=== PATIENT | male | born 1925 | race Asian ===

== ENCOUNTER 2017-01-27 22:33 | Emergency (ER) | payer MEDICARE, OTHER ==
[~2017-01-27] VITALS: Ht 157.5 cm; Wt 54.4 kg
[~2017-01-27 22:33] MED LIST: ASPI-664 PO; ATOR20TA38 PO; CALC0.2511 PO; CALC500T12 PO; CARV12.579 PO; DONE5TAB7 PO; FAMO20TA18 PO; FER325 PO; FOLI-49 PO; LAMO25TA55 PO; SITA25TA3 PO; TAMS-14 PO
[2017-01-27 22:36] VITALS: Ht 157.5 cm; Wt 54.4 kg
--- NOTE | 2017-01-27 22:49 | ERA ---
ER Documentation Chief Complaint Date/Time DATE: 01/27/17 TIME: 22:47 Chief Complaint Low hemoglobin 6.4 HPI The patient is a 61-year-old male, presenting to the ER because of low hemoglobin 6.4, low hematocrit 19.2 from the blood test drawn on January 23. The dialysis center called him today and asked him to go to the ER due to abnormal lab. He is unable to provide a history, the history is obtained from the son. He has not received any blood transfusion. He denies any syncope, near syncope , weakness, neck pain, chest pain, abdominal pain, hematemesis, hematochezia. Past medical history: Dementia, BPH, dyslipidemia, diabetes mellitus, history of CVA, CAD, chronic kidney disease on dialysis Sunday and Sunday, dysphagia, bilateral bone disease, history of thrombocytopenia Past medical history: Pacemaker, right chest dialysis catheter ROS All systems reviewed and are negative except as per history of present illness. Medications Home Meds Reported Medications Ferrous Sulfate* (Ferrous Sulfate*) 325 Mg Tabec, 325 MG PO DAILY, TAB 07/06/16 Famotidine* (Famotidine*) 20 Mg Tablet, 20 MG PO BID, #60 TAB 07/06/16 Calcitriol* (Calcitriol*) 0.25 Mcg Capsule, 0.25 MCG PO DAILY, CAP 07/06/16 Lamotrigine* (Lamotrigine* ER) 25 Mg Tab.er.24, 25 MG PO DAILY, TAB 07/06/16 Donepezil* (Donepezil*) 5 Mg Tablet, 5 MG PO DAILY, #30 TAB 07/06/16 Tamsulosin Hcl* (Flomax*) 0.4 Mg Cap.er.24h, 0.4 MG PO HS, CAP 07/06/16 Carvedilol* (Carvedilol*) 12.5 Mg Tablet, 12.5 MG PO BID, #60 TAB 07/06/16 Atorvastatin Calcium* (Atorvastatin Calcium*) 20 Mg Tablet, 20 MG PO HS, TAB 12/14/14 Folic Acid* (Folic Acid*) 1 Mg Tablet, 1 MG PO DAILY, TAB 12/14/14 Sitagliptin* (Januvia*) 25 Mg Tablet, 25 MG PO DAILY, TAB 12/14/14 Aspirin (Low Dose Aspirin) 81 Mg Tablet.dr, 81 MG PO DAILY 12/14/14 Calcium Carbonate* (Oysco-500*) 1 Tab Tablet, 1 TAB PO BID, TAB 12/14/14 Allergies Allergies: Coded Allergies: No Known Allergy (Unverified , 01/27/17) PMhx/Soc History of Surgery: No Anesthesia Reaction: No Hx Neurological Disorder: Yes (CVA) Hx Respiratory Disorders: No Hx Cardiac Disorders: Yes (HTN/PACEMAKER) Hx Psychiatric Problems: Yes (DEMENTIA) Hx Miscellaneous Medical Probl: Yes (hypothermia, CKD, hypokalemia, CVA with residual,) Hx Alcohol Use: No Hx Substance Use: No Physical Exam Vitals Vital Signs Date Time Temp Pulse Resp B/P Pulse Ox O2 Delivery O2 Flow Rate FiO2 01/27/17 22:36 97.1 87 20 131/79 94 Physical Exam Const: No acute distress. Pale Head: Atraumatic. Eyes: Normal Conjunctiva. ENT: Normal External Ears, Nose and Mouth. Neck: Full range of motion. No meningismus. Resp: Clear to auscultation bilaterally. Cardio: Regular rate and rhythm. Abd: Soft, non distended, normal bowel sounds, non tender. Skin: No petechiae or rashes. Back: No midline or flank tenderness. Ext: No cyanosis, or edema. Neur: Awake and alert. No focal deficit Psych: Unable to perform due to his condition Result Diagram: 01/27/17 2300 01/27/17 2300 Results 24 hrs Laboratory Tests Test 01/27/17 23:00 White Blood Count 7.810^3/ul Red Blood Count 2.7710^6/ul Hemoglobin 8.7g/dl Hematocrit 30.0% Mean Corpuscular Volume 108.3fl Mean Corpuscular Hemoglobin 31.4pg Mean Corpuscular Hemoglobin Concent 29.0g/dl Red Cell Distribution Width 15.4% Platelet Count 84240^3/UL Mean Platelet Volume 10.2fl Neutrophils % 68.6% Lymphocytes % 10.3% Monocytes % 8.5% Eosinophils % 11.2% Basophils % 0.8% Nucleated Red Blood Cells % 0.0/100WBC Neutrophils # 5.410^3/ul Lymphocytes # 0.810^3/ul Monocytes # 0.710^3/ul Eosinophils # 0.910^3/ul Basophils # 0.110^3/ul Nucleated Red Blood Cells # 0.010^3/ul Prothrombin Time 12.7Sec Prothrombin Time Ratio 1.0 INR International Normalized Ratio 0.95 Activated Partial Thromboplast Time 93.7Sec Sodium Level 140mmol/L Potassium Level 3.1mmol/L Chloride Level 102mmol/L Carbon Dioxide Level 33mmol/L Anion Gap 8 Blood Urea Nitrogen 36mg/dl Creatinine 4.28mg/dl Glucose Level 131mg/dl Calcium Level 8.6mg/dl Total Bilirubin 0.0mg/dl Direct Bilirubin 0.00mg/dl Indirect Bilirubin 0.0mg/dl Aspartate Amino Transf (AST/SGOT) 28IU/L Alanine Aminotransferase (ALT/SGPT) 25IU/L Alkaline Phosphatase 138IU/L Total Protein 6.2g/dl Albumin 2.8g/dl Globulin 3.40g/dl Albumin/Globulin Ratio 0.82 Current Medications Medications (Trade) Dose Ordered Sig/Prateek Route PRN Reason Start Time Stop Time Status Last Admin Dose Admin Potassium Chloride (Klor-Con 10) 10 meq ONCE ONCE PO 01/28/17 02:00 01/28/17 02:01 DC Procedures/MDM MEDICAL MAKING DECISION: The patient is a 89-year-old male, presenting with anemia, acute hypokalemia. His hemoglobin is 8.7 and does not have any evidence of acute GI bleed, is stable for outpatient follow-up. He was treated with potassium chloride 10 mEq p.o. for acute hypokalemia The differential diagnoses considered include but are not limited to gastritis, peptic ulcer disease, esophageal varices, Merline-Rose tear, carcinoma, polyp, hemorrhoid, fissure, diverticulosis, angiodysplasia. EKG: Read by emergency physician Rate/Rhythm: Normal Sinus Rhythm 83 beats/min QRS, ST, T-waves: No ST elevation, no T inversion, right bundle branch block , inferior lateral T abnormality Impression: Abnormal EKG Departure Diagnosis: Primary Impression: Anemia Additional Impression: Hypokalemia Condition: Good Comments I discussed the findings with the patient. I advised the patient to follow-up with the primary physician in about 1-2 days for reevaluation and referral to gastroenterology, sooner if needed and return if any concern. LADARIUS BISHOP MD Jan 27, 2017 22:49
[2017-01-27 23:53] LABS: BASOPHIL # 0.1 10^3/ul (0.0-0.1); BASOPHILS % 0.8 % (0.0-2.0); EOSINOPHILS # 0.9 10^3/ul (0.0-0.5); EOSINOPHILS % 11.2 % (0.0-7.0); HEMOGLOBIN 8.7 g/dl (14.0-18.0); LYMPHOCYTES # 0.8 10^3/ul (0.8-2.9); LYMPHOCYTES % 10.3 % (15.0-51.0); MEAN CORPUSCULAR HEMOGLOBIN 31.4 pg (29.0-33.0); MEAN CORPUSCULAR VOLUME 108.3 fl (82.0-101.0); MEAN PLATELET VOLUME 10.2 fl (7.4-10.4); MONOCYTE # 0.7 10^3/ul (0.3-0.9); MONOCYTES % 8.5 % (0.0-11.0); NEUTROPHIL # 5.4 10^3/ul (1.6-7.5); NEUTROPHILS % 68.6 % (39.0-77.0); PLATELET COUNT 258 10^3/UL (140-415); RED BLOOD COUNT 2.77 10^6/ul (4.70-6.10); RED CELL DISTRIBUTION WIDTH 15.4 % (11.5-14.5); WHITE BLOOD COUNT 7.8 10^3/ul (4.8-10.8)
[2017-01-28 00:13] LABS: ALBUMIN 2.8 g/dl (3.3-4.9); ALBUMIN/GLOBULIN RATIO 0.82; CALCIUM 8.6 mg/dl (8.4-10.2); CREATININE 4.28 mg/dl (0.61-1.24); POTASSIUM 3.1 mmol/L (3.5-5.1); TOTAL PROTEIN 6.2 g/dl (6.1-8.1)
[2017-01-28 00:27] LABS: INR 0.95; PROTIME 12.7 Sec (12.2-14.2)
[2017-01-28 01:33] LABS: PARTIAL THROMBOPLASTIN TIME 93.7 Sec (25.0-35.0)
[2017-01-28] MEDS ORDERED: POTASSIUM CHLORIDE (SR) 10 MEQ TAB PO ONE (02:00)
[2017-01-28 02:22] VITALS: BP 122/53; PULSE 75; RESP 22; TEMP 98.9
== END 2017-01-28 02:34 | disposition home or self-care (01) ==
LOC: E/R 22:33
DX: D64.9 Anemia, unspecified (principal); E87.6 Hypokalemia; I12.9 Hypertensive chronic kidney disease with stage 1 through stage 4 chronic kidney disease, or unspecified chronic kidney disease; N18.9 Chronic kidney disease, unspecified; Z79.82 Long term (current) use of aspirin; Z79.84 Long term (current) use of oral hypoglycemic drugs; Z95.0 Presence of cardiac pacemaker
CPT/HCPCS: 36415; 80053; 85025; 85610; 85730; 86850; 86900; 86901; 93005

== ENCOUNTER 2017-04-25 15:42 | Inpatient (IN) | payer MEDICARE, OTHER ==
[~2017-04-25] VITALS: Ht 157.5 cm; Wt 54.8 kg
[2017-04-25] VITALS (7 sets, daily range): BP systolic 129–155; BP diastolic 73–80; PULSE 100–108; RESP 14–20; TEMP 98.5; Ht 157.5 cm; Wt 54.8 kg
[2017-04-25] MEDS ORDERED: SOD CHLORIDE 0.9% 500 ML IV STA (15:55)
[2017-04-25] MEDS ORDERED: SOD CHLORIDE 0.9% 250 ML IV ONE (16:12)
[2017-04-25 16:38] LABS: ABNORMAL IP MESSAGE 1; BASOPHIL # 0.1 10^3/ul (0.0-0.1); BASOPHILS % 0.9 % (0.0-2.0); EOSINOPHILS % 12.8 % (0.0-7.0); HEMATOCRIT 26.4 % (42.0-52.0); HEMOGLOBIN 7.3 g/dl (14.0-18.0); LYMPHOCYTES # 1.6 10^3/ul (0.8-2.9); LYMPHOCYTES % 19.1 % (15.0-51.0); MEAN CORPUSCULAR HEMOGLOBIN 26.6 pg (29.0-33.0); MEAN CORPUSCULAR HGB CONC 27.7 g/dl (32.0-37.0); MEAN CORPUSCULAR VOLUME 96.4 fl (82.0-101.0); MEAN PLATELET VOLUME 9.6 fl (7.4-10.4); MONOCYTE # 0.9 10^3/ul (0.3-0.9); MONOCYTES % 10.9 % (0.0-11.0); NEUTROPHIL # 4.5 10^3/ul (1.6-7.5); NEUTROPHILS % 55.9 % (39.0-77.0); PLATELET COUNT 252 10^3/UL (140-415); POSITIVE DIFF @See below; RED BLOOD COUNT 2.74 10^6/ul (4.70-6.10); RED CELL DISTRIBUTION WIDTH 17.7 % (11.5-14.5); WHITE BLOOD COUNT 8.1 10^3/ul (4.8-10.8)
--- NOTE | 2017-04-25 16:38 | RADRPT ---
PROCEDURE: XR Chest. CLINICAL INDICATION: Sepsis . TECHNIQUE: Single frontal chest x-ray. COMPARISON: 07/19/2016 FINDINGS: There is a right sided tunneled dialysis catheter and left-sided dual chamber cardiac pacer in place . . Cardiomegaly with calcific atherosclerosis of the aorta is present. Left basilar atelectasis or consolidation is stable. The right lung is clear.. No evidence of pneumothorax.. The osseous struct ures are intact. IMPRESSION: Tubes and lines unchanged. Cardiomegaly with left basilar atelectasis or consolidation unchanged.. RPTAT: GG .Francisco Joseph MD, Date Time Electronically viewed and signed by .Francisco Joseph MD, on 04/25/2017 16:38 .L/
[2017-04-25 16:53] LABS: INR 0.97; PROTIME 12.9 Sec (12.2-14.2)
[2017-04-25 16:54] LABS: PARTIAL THROMBOPLASTIN TIME 30.5 Sec (25.0-35.0)
[2017-04-25 17:00] LABS: ALBUMIN/GLOBULIN RATIO 0.51; CALCIUM 7.8 mg/dl (8.4-10.2); CREATININE 5.38 mg/dl (0.61-1.24); POTASSIUM 4.6 mmol/L (3.5-5.1); TOTAL PROTEIN 5.9 g/dl (6.1-8.1)
[2017-04-25] MEDS ORDERED: ACETAMINOPHEN 325 MG TAB PO PRN ×2 (17:00→18:00)
[2017-04-25] MEDS ORDERED: ONDANSETRON 4 MG INJ IV PRN ×2 (17:00→18:00)
[2017-04-25] MEDS ORDERED: MEGE40TA PO (17:06)
[2017-04-25] MEDS ORDERED: LORA10TA3 PO (17:06)
[2017-04-25] MEDS ORDERED: FURO20TA3 PO (17:08)
[2017-04-25 17:31] LABS: TROPONIN-I 0.059 ng/ml (0.00-0.12)
[2017-04-25] MEDS ORDERED: SOD CHLORIDE 0.45% 1,000 ML IV SCH (17:55)
[2017-04-25] MEDS ORDERED: HYDROCODONE/APAP (5/325) TAB PO PRN (18:00)
[2017-04-25] MEDS ORDERED: LORAZEPAM 2 MG INJ IV PRN (18:00)
[2017-04-25] MEDS ORDERED: ALBUTEROL/IPRATROPIUM (NEB) 3 ML AMP HHN PRN (18:00)
[2017-04-25] MEDS ORDERED: NITROGLYCERIN (SL) 0.4 MG TAB SL PRN (18:00)
[2017-04-25] MEDS ORDERED: NA PHOSPHATE/BIPHOS 133 ML ENEMA PR PRN (18:00)
[2017-04-25] MEDS ORDERED: morphine 2 MG INJ IV PRN (18:00)
[2017-04-25] MEDS ORDERED: DOCUSATE SODIUM 100 MG CAP PO PRN (18:00)
[2017-04-25] MEDS ORDERED: hydrALAzine 20 MG INJ IV PRN (18:00)
[2017-04-25] MEDS ORDERED: NACL 0.9% 3 ML SYG IV SCH (18:00)
[2017-04-25] MEDS ORDERED: MAGNESIUM HYDROXIDE 30ML CUP PO PRN (18:00)
--- NOTE | 2017-04-25 18:00 | ERA ---
ER Documentation Chief Complaint Date/Time DATE: 04/25/17 TIME: 17:58 Chief Complaint low hemoglobin 6.1, sent from dialysis center HPI Patient is an 89-year-old male with diabetes and dialysis who presents with a low hemoglobin. He had outpatient laboratory studies which showed a hemoglobin of 6.1. He has felt weakness all over. The patient had no fever but did have a low blood pressure. The patient did not pass out. The patient has had no recent injury. The patient had a full dialysis yesterday. He has never had a blood transfusion in the past. He denies black or bloody stools. Upon review of old medical records this is the patient's fourth visit to the ER since 2014. ROS All systems reviewed and are negative except as per history of present illness. Medications Home Meds Reported Medications Furosemide* (Furosemide*) 20 Mg Tablet, 20 MG PO DAILY, #60 TAB TAKE 4 TIMES A WEEK 04/25/17 Loratadine* (Loratadine*) 10 Mg Tablet, 10 MG PO DAILY, #30 TAB 04/25/17 Megestrol Acetate* (Megace*) 40 Mg Tab, 40 MG PO DAILY, TAB 04/25/17 Famotidine* (Famotidine*) 20 Mg Tablet, 20 MG PO BID, #60 TAB 07/06/16 Donepezil* (Donepezil*) 5 Mg Tablet, 5 MG PO DAILY, #30 TAB 07/06/16 Tamsulosin Hcl* (Flomax*) 0.4 Mg Cap.er.24h, 0.4 MG PO HS, CAP 07/06/16 Atorvastatin Calcium* (Atorvastatin Calcium*) 20 Mg Tablet, 20 MG PO HS, TAB 12/14/14 Folic Acid* (Folic Acid*) 1 Mg Tablet, 1 MG PO DAILY, TAB 12/14/14 Sitagliptin* (Januvia*) 25 Mg Tablet, 25 MG PO DAILY, TAB 12/14/14 Aspirin (Low Dose Aspirin) 81 Mg Tablet.dr, 81 MG PO DAILY 12/14/14 Calcium Carbonate* (Oysco-500*) 1 Tab Tablet, 1 TAB PO BID, TAB 12/14/14 Discontinued Reported Medications Ferrous Sulfate* (Ferrous Sulfate*) 325 Mg Tabec, 325 MG PO DAILY, TAB 07/06/16 Calcitriol* (Calcitriol*) 0.25 Mcg Capsule, 0.25 MCG PO DAILY, CAP 07/06/16 Lamotrigine* (Lamotrigine* ER) 25 Mg Tab.er.24, 25 MG PO DAILY, TAB 07/06/16 Carvedilol* (Carvedilol*) 12.5 Mg Tablet, 12.5 MG PO BID, #60 TAB 07/06/16 Allergies Allergies: Coded Allergies: No Known Allergy (Unverified , 04/25/17) PMhx/Soc History of Surgery: Yes (RT CHEST DIALYSIS CATH, PACEMAKER) Anesthesia Reaction: No Hx Neurological Disorder: Yes (CVA) Hx Respiratory Disorders: No Hx Cardiac Disorders: Yes (HTN/PACEMAKER) Hx Psychiatric Problems: Yes (DEMENTIA) Hx Miscellaneous Medical Probl: Yes (hypothermia, CKD ON HD, hypokalemia, CVA with residual,) Hx Alcohol Use: No Hx Substance Use: No Hx Tobacco Use: Yes (FORMER SMOKER) Smoking Status: Former smoker FmHx Family History: No diabetes Physical Exam Vitals Vital Signs Date Time Temp Pulse Resp B/P Pulse Ox O2 Delivery O2 Flow Rate FiO2 04/25/17 17:22 77 17 111/54 99 Room Air 04/25/17 15:45 98.5 116 22 81/49 99 Physical Exam Const: Chronically ill Head: Atraumatic Eyes: Normal Conjunctiva ENT: Normal External Ears, Nose and Mouth. Neck: Full range of motion..~ No meningismus. Resp: Clear to auscultation bilaterally Cardio: Regular rate and rhythm, no murmurs Abd: Soft, non tender, non distended. Normal bowel sounds Skin: Pale skin Back: No midline or flank tenderness Ext: No cyanosis, or edema Neur: Awake but pill-rolling tremor Result Diagram: 04/25/17 1610 04/25/17 1610 Results 24 hrs Laboratory Tests Test 04/25/17 16:10 White Blood Count 8.110^3/ul Red Blood Count 2.7410^6/ul Hemoglobin 7.3g/dl Hematocrit 26.4% Mean Corpuscular Volume 96.4fl Mean Corpuscular Hemoglobin 26.6pg Mean Corpuscular Hemoglobin Concent 27.7g/dl Red Cell Distribution Width 17.7% Platelet Count 68377^3/UL Mean Platelet Volume 9.6fl Neutrophils % 55.9% Lymphocytes % 19.1% Monocytes % 10.9% Eosinophils % 12.8% Basophils % 0.9% Nucleated Red Blood Cells % 0.0/100WBC Neutrophils # 4.510^3/ul Lymphocytes # 1.610^3/ul Monocytes # 0.910^3/ul Eosinophils # 1.010^3/ul Basophils # 0.110^3/ul Nucleated Red Blood Cells # 0.010^3/ul Prothrombin Time 12.9Sec Prothrombin Time Ratio 1.0 INR International Normalized Ratio 0.97 Activated Partial Thromboplast Time 30.5Sec Sodium Level 140mmol/L Potassium Level 4.6mmol/L Chloride Level 108mmol/L Carbon Dioxide Level 28mmol/L Anion Gap 9 Blood Urea Nitrogen 43mg/dl Creatinine 5.38mg/dl Glucose Level 113mg/dl Lactic Acid Level 2.4mmol/L Calcium Level 7.8mg/dl Total Bilirubin 0.0mg/dl Direct Bilirubin 0.00mg/dl Indirect Bilirubin 0.0mg/dl Aspartate Amino Transf (AST/SGOT) 25IU/L Alanine Aminotransferase (ALT/SGPT) 22IU/L Alkaline Phosphatase 130IU/L Troponin I 0.059ng/ml Total Protein 5.9g/dl Albumin 2.0g/dl Globulin 3.90g/dl Albumin/Globulin Ratio 0.51 Current Medications Medications (Trade) Dose Ordered Sig/Prateek Route PRN Reason Start Time Stop Time Status Last Admin Dose Admin Sodium Chloride 500 ml @ 500 mls/hr Q1H STAT IV 04/25/17 15:55 04/25/17 16:54 DC 04/25/17 15:55 Sodium Chloride (NS) 250 ml @ 0 mls/hr Q0M ONCE IV 04/25/17 16:12 04/25/17 16:13 DC Ondansetron HCl (Zofran Inj) 4 mg ER BRIDGE PRN IV NAUSEA AND/OR VOMITING 04/25/17 17:00 04/26/17 16:59 Acetaminophen (Tylenol Tab) 650 mg ER BRIDGE PRN PO MILD PAIN/FEVER 04/25/17 17:00 04/26/17 16:59 Procedures/MDM EKG read by me: Rate/Rhythm: Left bundle branch block with tachycardia Intervals: Normal Impression: Tachycardia with left bundle branch block with negative Sgarbossa criteria Chest x-ray shows no pneumonia or pneumothorax per radiology. Patient is an 89-year-old male with diabetes and dialysis who presents with tachycardia and low blood pressure. His hemoglobin was 7.3. The patient has symptomatic anemia and will need transfusion with packed red blood cells. I have ordered this. His lactic acid was elevated at 2.4 but I doubt sepsis. I believe the elevated lactic acid is likely related to poor perfusion from anemia. The patient will be admitted to the care of the panel team and I spoke with Dr. Alvarez for admission to a telemetry bed. The patient was given a 500 mL normal saline bolus for fluid resuscitation as I do believe there is dehydration as well. Critical Care: Time: 35 minutes excluding all billable procedures. Treatments/Evaluations: Close monitoring and treatment of unstable vital signs, cardiorespiratory, and neurologic status, while maintaining tight balance of fluid, respiratory, and cardiac interventions. Departure Diagnosis: Primary Impression: Anemia Qualified Code: D64.9 - Anemia, unspecified type Condition: Serious ARMAAN KOENIG MD Apr 25, 2017 18:00
[2017-04-25] MEDS ORDERED: GLUCOSE GEL 15 GRAM TUBE BUCCAL PRN (19:00)
[2017-04-25] MEDS ORDERED: GLUCOSE GEL 15 GRAM TUBE PO PRN ×2 (19:00)
[2017-04-25] MEDS ORDERED: DEXTROSE 50% 50 ML SYRINGE IV PRN (19:00)
[2017-04-25] MEDS ORDERED: GLUCAGON 1 MG INJ IM PRN (19:00)
--- NOTE | 2017-04-25 19:25 | HP ---
DATE OF ADMISSION: 04/25/2017 CHIEF COMPLAINT: Sent from dialysis center for low hemoglobin. HISTORY OF PRESENT ILLNESS: An 89-year-old male, past medical history based on records of prior UTI, prior thrombocytopenia, anemia of chronic disease, end-stage renal disease on dialysis. BPH, adult-onset diabetes, history of pacemaker placement, prior stroke. He was sent over from dialysis center because of a low hemoglobin and apparently he had an outpatient lab study performed that showed a hemoglobin of 6.1. Most of the information was taken from the ER documentation as patient was unable to provide a full HPI at this time although he did state he had weakness all over his body. Denied fevers. No loss of consciousness. No recent injuries. That is the full extent of the review of systems that could be obtained. He did get dialysis earlier today. When he came in today to the ER, he was found with a hemoglobin of 7.3, and 2 units of PRBC was ordered in the ER to be given today. The patient did deny any upper or lower GI bleeding. Patient was last here at our hospital from July 06 to July 19, 2016. At that time, he was treated for end-stage renal disease, requiring dialysis at that time. PAST MEDICAL HISTORY: As above. ALLERGIES: NO KNOWN DRUG ALLERGIES. MEDICATIONS: Based on records: 1. Loratadine 10 mg daily. 2. Megace 40 mg daily. 3. Donepezil 5 mg daily. 4. Flomax 0.4 mg at bedtime. 5. Atorvastatin 20 mg at bedtime. 6. Aspirin 81 mg daily. 7. Calcium carbonate b.i.d. 8. Furosemide 20 mg daily. 9. Famotidine 20 mg b.i.d. 10. Januvia 25 mg daily. 11. Folic acid 1 mg daily. PAST SURGICAL HISTORY: Again based on records, he has had right chest dialysis catheter placement in the past, pacemaker placement and catheterization. SOCIAL HISTORY: Former smoker. No alcohol use. No IV drug abuse. FAMILY HISTORY: Noncontributory. PHYSICAL EXAMINATION: VITAL SIGNS: T-max 98.5, pulse 77-116, respirations 17-22, blood pressure is 81-111 systolic over 49-54 diastolic, saturating at 99 percent room air. GENERAL: Patient is lying in bed, slightly lethargic. No acute distress. HEENT: Pupils equal, round, reactive to light. Extraocular muscle intact although the right eyelid does have some mild crusted pus around the right eyelid, but no bleeding. No overt discharge. NECK: Supple. No thyromegaly. LUNGS: Clear to auscultation bilaterally. CARDIOVASCULAR: S1, S2 heard. No rubs, gallops. ABDOMEN: Soft, nontender, nondistended. Normal bowel sounds. No rebound or guarding. MUSCULOSKELETAL: No lower extremity edema bilaterally. NEUROLOGIC: No focal deficits. DATA: CBC showed WBC 8.1, hemoglobin 7.3, hematocrit 26.4, platelets 252. Sodium 140, potassium 4.6, chloride 108, CO2 of 28, BUN 43, creatinine 5.3, glucose 113. Chest x-ray that shows cardiomegaly with left basilar atelectasis or consolidation which is unchanged. IMPRESSION: An 89-year-old male, sent in from dialysis center for low hemoglobin count found to be 7.3, history of end-stage renal disease on dialysis, and prior history of anemia of chronic disease. 1. Anemia, again unclear source. Will check a stool guaiac. Admit the patient. Get a gastroenterology consult. Patient may benefit from EGD, colonoscopy. Check TSH, A1c, lipid panel. Give him intravenous fluids as well. Continue H2 felix. 2. History of end-stage renal disease, on dialysis. We will get a renal consult for continuation of dialysis, he gets it 3 times a week. 3. History of prior stroke. Continue to monitor him for now. No present issues. 4. History of BPH, continue to monitor for now. 5. High cholesterol. Check a lipid panel. 6. Essential hypertension. Blood pressure was actually low on admission, so continue to monitor blood pressure for now. He is going to get intravenous fluids. We will consider holding his home blood pressure medicines, including his Lasix for now. 7. History of adult onset diabetes. Check A1c. Put him on sliding scale insulin. 8. History of dementia. Continue donepezil as well. 9. History of dysphagia in the past. We will get a speech therapy eval. 10. Eye discharge. We will order for Cipro ophthalmic drops. 11. Will get physical therapy and occupational therapy consults as well. Dictated By: Armin Alvarez MD /[email or web address] /Document#: [id number]
[2017-04-25] MEDS: INSULIN ASPART [NOVOLOG] 3 ML PEN SC SCH (21:00)
[2017-04-25] MEDS ORDERED: FAMOTIDINE 20 MG TAB PO SCH (21:00)
[2017-04-25] MEDS: ATORVASTATIN 20 MG TAB PO SCH (21:43)
[2017-04-25] MEDS: TAMSULOSIN (SR) 0.4 MG CAP PO SCH (21:43)
[2017-04-25] MEDS: CIPROFLOXACIN 0.3% 3.5 GM OPH OINT RIGHT EYE SCH (22:00)
[2017-04-26] VITALS (20 sets, daily range): BP systolic 79–161; BP diastolic 38–74; PULSE 59–111; RESP 14–20
[2017-04-26] MEDS: DEXTROSE 5%-0.45% NACL 1,000 ML IV SCH ×3 (01:30→15:16)
[2017-04-26] MEDS: ACCU-CHEK XX SCH ×2 (02:10→21:23)
[2017-04-26] MEDS: PANTOPRAZOLE 40 MG INJ IV SCH (05:18)
[2017-04-26] MEDS: INSULIN ASPART [NOVOLOG] 3 ML PEN SC SCH ×4 (08:00→21:00)
[2017-04-26 08:12] LABS: BASOPHIL # 0.1 10^3/ul (0.0-0.1); BASOPHILS % 0.8 % (0.0-2.0); EOSINOPHILS # 1.4 10^3/ul (0.0-0.5); EOSINOPHILS % 16.8 % (0.0-7.0); HEMATOCRIT 31.2 % (42.0-52.0); HEMOGLOBIN 9.7 g/dl (14.0-18.0); LYMPHOCYTES # 1.2 10^3/ul (0.8-2.9); LYMPHOCYTES % 13.9 % (15.0-51.0); MEAN CORPUSCULAR HEMOGLOBIN 28.2 pg (29.0-33.0); MEAN CORPUSCULAR HGB CONC 31.1 g/dl (32.0-37.0); MEAN CORPUSCULAR VOLUME 90.7 fl (82.0-101.0); MEAN PLATELET VOLUME 9.9 fl (7.4-10.4); MONOCYTE # 1.1 10^3/ul (0.3-0.9); MONOCYTES % 13.5 % (0.0-11.0); NEUTROPHIL # 4.6 10^3/ul (1.6-7.5); NEUTROPHILS % 54.8 % (39.0-77.0); PLATELET COUNT 231 10^3/UL (140-415); RED BLOOD COUNT 3.44 10^6/ul (4.70-6.10); RED CELL DISTRIBUTION WIDTH 18.5 % (11.5-14.5); WHITE BLOOD COUNT 8.4 10^3/ul (4.8-10.8)
[2017-04-26] MEDS: FOLIC ACID 1 MG TAB PO SCH (08:14)
[2017-04-26] MEDS: LORATADINE 10 MG TAB PO SCH (08:14)
[2017-04-26] MEDS: DONEPEZIL 5 MG TAB PO SCH (08:14)
[2017-04-26] MEDS: MEGESTROL 40 MG TAB PO SCH (08:15)
[2017-04-26 08:39] LABS: CALCIUM 7.2 mg/dl (8.4-10.2); CREATININE 5.74 mg/dl (0.61-1.24); PHOSPHORUS 4.4 mg/dl (2.5-4.9); POTASSIUM 4.3 mmol/L (3.5-5.1)
[2017-04-26] MEDS: CIPROFLOXACIN 0.3% 3.5 GM OPH OINT RIGHT EYE SCH ×2 (08:49→21:22)
[2017-04-26] MEDS ORDERED: FUROSEMIDE 20 MG TAB PO SCH (09:00)
[2017-04-26] MEDS ORDERED: INFLUENZA VIRUS VACCINE 0.5 ML (DISPENSING) IM* ONE (09:00)
[2017-04-26 09:04] LABS: THYROID STIMULATING HORMONE 3.68 MIU/L (0.465-4.680)
[2017-04-26] MEDS ORDERED: VITAMIN A & D 5 GM OINT PACKET TOP ONE (13:05)
--- NOTE | 2017-04-26 15:31 | PN ---
Date/Time of Note Date/Time of Note DATE: 04/26/17 TIME: 15:26 Assessment/Plan VTE Prophylaxis VTE Prophylaxis Intervention: SCD's Lines/Catheters IV Catheter Type (from Nrsg): Peripheral IV Urinary Cath still in place: No Assessment/Plan Assessment/Plan 1. Severe anemia, consider CKD related, epogen, follow up with GI 2. ESRD, DD, HD today 3. HTN, controlled 4. Dyslipidemia, on statin 5. BPH 6. Dementia, on aricept Subjective 24 Hr Interval Summary Free Text/Dictation no evidence of active bleeding Exam/Review of Systems Vital Signs Vitals Vital Signs Date Time Temp Pulse Resp B/P Pulse Ox O2 Delivery O2 Flow Rate FiO2 04/26/17 12:15 111 04/26/17 11:41 97.7 20 111/59 100 04/26/17 08:05 Nasal Cannula 2.0 Intake and Output 04/25/17 04/25/17 04/26/17 15:00 23:00 07:00 Intake Total 430 ml 350 ml Balance 430 ml 350 ml Exam Constitutional: alert, oriented, well developed Head: atraumatic, normocephalic Eyes: EOMI, PERRL, nl conjunctiva, nl lids, nl sclera ENMT: mucosa pink and moist, nl external ears & nose, nl lips & teeth, nl nasal mucosa & septum Neck: non-tender, supple Respiratory: clear to auscultation, normal air movement, No congested cough, No crackles/rales, No diminished breath sounds, No intercostal retraction, No labored breathing, No other, No respirations, No tactile fremitus, No wheezing Cardiovascular: nl pulses, regular rate and rhythm, No S3, No S4, No bruits, No diastolic murmur, No edema, No gallop, No irregular rhythm, No jugular venous distention (JVD), No murmurs/extra sounds, No other, No rub, No systolic murmur Gastrointestinal: nl liver, spleen, non-tender, soft, No ascites, No bowel sounds, No distended, No firm, No hepatomegaly, No mass , No other, No rebound or guarding, No splenomegaly, No surgical scars, No tender Musculoskeletal: nl extremities to inspection Extremities: normal pulses, No calf tenderness, No clubbing, No cyanosis, No edema, No other, No palpable cord, No pitting pedal edema, No tenderness Neurological: SH[employer] II-XII intact, nl speech Results Result Diagram: 04/26/17 0706 04/26/17 0706 Results 24 hrs Laboratory Tests Test 04/25/17 16:10 04/25/17 18:15 04/25/17 21:40 04/25/17 22:32 White Blood Count 8.1 Red Blood Count 2.74 L Hemoglobin 7.3 L Hematocrit 26.4 L Mean Corpuscular Volume 96.4 Mean Corpuscular Hemoglobin 26.6 L Mean Corpuscular Hemoglobin Concent 27.7 L Red Cell Distribution Width 17.7 H Platelet Count 252 Mean Platelet Volume 9.6 Neutrophils % 55.9 Lymphocytes % 19.1 Monocytes % 10.9 Eosinophils % 12.8 H Basophils % 0.9 Nucleated Red Blood Cells % 0.0 Neutrophils # 4.5 Lymphocytes # 1.6 Monocytes # 0.9 Eosinophils # 1.0 H Basophils # 0.1 Nucleated Red Blood Cells # 0.0 Prothrombin Time 12.9 Prothrombin Time Ratio 1.0 INR International Normalized Ratio 0.97 Activated Partial Thromboplast Time 30.5 Sodium Level 140 Potassium Level 4.6 Chloride Level 108 Carbon Dioxide Level 28 Anion Gap 9 Blood Urea Nitrogen 43 H Creatinine 5.38 H Glucose Level 113 Lactic Acid Level 2.4 *H 2.0 1.2 Calcium Level 7.8 L Total Bilirubin 0.0 L Direct Bilirubin 0.00 Indirect Bilirubin 0.0 Aspartate Amino Transf (AST/SGOT) 25 Alanine Aminotransferase (ALT/SGPT) 22 Alkaline Phosphatase 130 H Troponin I 0.059 Total Protein 5.9 L Albumin 2.0 L Globulin 3.90 H Albumin/Globulin Ratio 0.51 Free Thyroxine 1.88 Bedside Glucose 89 Test 04/26/17 01:39 04/26/17 06:14 04/26/17 07:06 04/26/17 08:13 Bedside Glucose 114 92 Lab Scanned Report BLOOD TRANSFUSION White Blood Count 8.4 Red Blood Count 3.44 #L Hemoglobin 9.7 #L Hematocrit 31.2 L Mean Corpuscular Volume 90.7 Mean Corpuscular Hemoglobin 28.2 L Mean Corpuscular Hemoglobin Concent 31.1 L Red Cell Distribution Width 18.5 H Platelet Count 231 Mean Platelet Volume 9.9 Neutrophils % 54.8 Lymphocytes % 13.9 L Monocytes % 13.5 H Eosinophils % 16.8 H Basophils % 0.8 Nucleated Red Blood Cells % 0.0 Neutrophils # 4.6 Lymphocytes # 1.2 Monocytes # 1.1 H Eosinophils # 1.4 H Basophils # 0.1 Nucleated Red Blood Cells # 0.0 Sodium Level 141 Potassium Level 4.3 Chloride Level 111 H Carbon Dioxide Level 27 Anion Gap 7 L Blood Urea Nitrogen 48 H Creatinine 5.74 H Glucose Level 94 Hemoglobin A1c 4.8 Calcium Level 7.2 L Phosphorus Level 4.4 Magnesium Level 2.0 Triglycerides Level 88 Cholesterol Level 114 LDL Cholesterol, Calculated 68 HDL Cholesterol 28 L Cholesterol/HDL Ratio 4.0 Thyroid Stimulating Hormone (TSH) 3.680 Test 04/26/17 12:32 Bedside Glucose 99 Medications Medications Current Medications Ondansetron HCl (Zofran Inj) 4 mg Q6H PRN IV NAUSEA AND/OR VOMITING; Start at 18:00 Acetaminophen (Tylenol Tab) 650 mg Q6H PRN PO PAIN LEVEL 1-3 OR FEVER; Start at 18:00 Acetaminophen/ Hydrocodone Bitart ([place] (5/325)) 1 tab Q6H PRN PO MODERATE PAIN LEVEL 4-6; Start 04/25/17 at 18:00 Morphine Sulfate (morphine) 2 mg Q4H PRN IV SEVERE PAIN LEVEL 7-10; Start 04/25 at 18:00 Docusate Sodium (Colace) 100 mg Q12H PRN PO CONSTIPATION; Start 04/25/17 at 18: 00 Magnesium Hydroxide (Milk Of Mag) 30 ml DAILY PRN PO CONSTIPATION; Start at 18:00 Sodium Biphosphate/ Sodium Phosphate (Fleet Enema) 133 ml DAILY PRN [place] CONSTIPATION; Start 04/25/17 at 18:00 Pantoprazole (Protonix Iv) 40 mg DAILY@06 IV Last administered on 04/26/17t 05: 18; Admin Dose 40 MG; Start 04/26/17 at 06:00 Lorazepam (Ativan) 0.5 mg Q6H PRN IV ANXIETY; Start 04/25/17 at 18:00 Hydralazine HCl (Apresoline) 10 mg Q6H PRN IV ELEVATED BLOOD PRESSURE; Start at 18:00 Nitroglycerin (Nitroglycerin (Sl Tab) 0.4 Mg) 1 tab Q5M PRN SL ANGINA; Start at 18:00 Atorvastatin Calcium (Lipitor) 20 mg HS PO Last administered on 04/25/17 21:43 ; Admin Dose 20 MG; Start 04/25/17 at 21:00 Donepezil HCl (Aricept) 5 mg DAILY PO ; Start 04/26/17 at 09:00 Famotidine (Pepcid) 20 mg Q24H PO Last administered on 04/25/17 21:43; Admin Dose 20 MG; Start 04/25/17 at 21:00 Folic Acid (Folic Acid) 1 mg DAILY PO ; Start 04/26/17 at 09:00 Furosemide (Lasix) 20 mg DAILY PO ; Start 04/26/17 at 09:00; Status Future Hold Loratadine (Claritin) 10 mg DAILY PO ; Start 04/26/17 at 09:00 Megestrol Acetate (Megace) 40 mg DAILY PO ; Start 04/26/17 at 09:00 Tamsulosin HCl (Flomax) 0.4 mg HS PO Last administered on 04/25/17 21:43; Admin Dose 0.4 MG; Start 04/25/17 at 21:00 Diagnostic Test (Pha) (Accu-Chek) 1 ea 02 XX Last administered on 04/26/17 02: 10; Admin Dose 1 EA; Start 04/26/17 at 02:00 Miscellaneous Information 1 ea NOTE XX ; Start 04/25/17 at 19:00 Glucose (Glutose) 15 gm Q15M PRN PO DECREASED GLUCOSE; Start 04/25/17 at 19:00 Glucose (Glutose) 22.5 gm Q15M PRN PO DECREASED GLUCOSE; Start 04/25/17 at 19: 00 Dextrose (D50w Syringe) 25 ml Q15M PRN IV DECREASED GLUCOSE; Start 04/25/17 at 19:00 Dextrose (D50w Syringe) 50 ml Q15M PRN IV DECREASED GLUCOSE; Start 04/25/17 at 19:00 Glucagon (Glucagen) 1 mg Q15M PRN IM DECREASED GLUCOSE; Start 04/25/17 at 19:00 Glucose (Glutose) 15 gm Q15M PRN BUCCAL DECREASED GLUCOSE; Start 04/25/17 at 19 :00 Ciprofloxacin HCl 1 applic 1 applic BID RIGHT EYE Last administered on 08:49; Admin Dose 1 APPLIC; Start 04/25/17 at 21:00 Dextrose/Sodium Chloride (D5-1/2ns) 1,000 ml @ 75 mls/hr [id number] IV Last administered on 04/26/17t 15:16; Admin Dose 75 MLS/HR; Start 04/26/17 at 00:00 KURT MCKINNON MD Apr 26, 2017 15:31
--- NOTE | 2017-04-26 16:47 | CONS ---
Date/Time of Note Date/Time of Note DATE: 04/26/17 TIME: 16:36 Assessment/Plan Assessment/Plan Additional Assessment/Plan Assessment * Anemia Chronic vs acute * ESRD on dialysis * Dementia * Diabetes mellitus * Hypertension Plan * EGD tomorrow spoke to daughter Elisa [phone] agreed with bplanned procedure * continue present management * case discussed with Dr Rosado * further orders will depend on clinical course Consultation Date/Type/Reason Admit Date/Time Apr 25, 2017 at 16:42 Date of Consultation: Apr 26, 2017 Type of Consultation: Gastroenterology Reason for Consultation anemia Referring Provider: CARINA LINCOLN Hx of Present Illness 89 year old male with past medical history of dementia,ESRD on dialysis,, diabetes mellitus,hx of pacemaker presented in the emergency room with low hemoglobin.Patient vame from dialysis center hemoglobin 7.3,patient denies hematemesis ,hematochezia nor chest pain.Patient was transfused 2 units of PRBC and present hemoglobin is 9.7.Patient is undergoing dialysis ,lethargic but no active bleeding noted.History obtained fron records and nurses as the patient is lethargic Past Medical History Medical History: other (esrd,DM,pacemaker ) Past Surgical History Past Surgical Hx: other (av fistula) Social History Smoking Status: Never smoker Exam/Review of Systems Vital Signs Vitals Vital Signs Date Time Temp Pulse Resp B/P Pulse Ox O2 Delivery O2 Flow Rate FiO2 04/26/17 15:45 98.2 99 20 112/44 95 04/26/17 08:05 Nasal Cannula 2.0 Intake and Output 04/25/17 04/25/17 04/26/17 15:00 23:00 07:00 Intake Total 430 ml 350 ml Balance 430 ml 350 ml Exam Constitutional: other (lethargic) Head: atraumatic, normocephalic Eyes: nl conjunctiva Neck: non-tender, supple Respiratory: diminished breath sounds, normal air movement Cardiovascular: regular rate and rhythm Gastrointestinal: distended, soft, No rebound or guarding Musculoskeletal: muscle weakness Extremities: edema Neurological: lethargic Skin: rash or lesions Lymph: nl lymph nodes Results Result Diagram: 04/26/17 0706 04/26/17 0706 Results 24 hrs Laboratory Tests Test 04/25/17 18:15 04/25/17 21:40 04/25/17 22:32 04/26/17 01:39 Lactic Acid Level 2.0 1.2 Free Thyroxine 1.88 Bedside Glucose 89 114 Test 04/26/17 06:14 04/26/17 07:06 04/26/17 08:13 04/26/17 12:32 Lab Scanned Report BLOOD TRANSFUSION White Blood Count 8.4 Red Blood Count 3.44 #L Hemoglobin 9.7 #L Hematocrit 31.2 L Mean Corpuscular Volume 90.7 Mean Corpuscular Hemoglobin 28.2 L Mean Corpuscular Hemoglobin Concent 31.1 L Red Cell Distribution Width 18.5 H Platelet Count 231 Mean Platelet Volume 9.9 Neutrophils % 54.8 Lymphocytes % 13.9 L Monocytes % 13.5 H Eosinophils % 16.8 H Basophils % 0.8 Nucleated Red Blood Cells % 0.0 Neutrophils # 4.6 Lymphocytes # 1.2 Monocytes # 1.1 H Eosinophils # 1.4 H Basophils # 0.1 Nucleated Red Blood Cells # 0.0 Sodium Level 141 Potassium Level 4.3 Chloride Level 111 H Carbon Dioxide Level 27 Anion Gap 7 L Blood Urea Nitrogen 48 H Creatinine 5.74 H Glucose Level 94 Hemoglobin A1c 4.8 Calcium Level 7.2 L Phosphorus Level 4.4 Magnesium Level 2.0 Triglycerides Level 88 Cholesterol Level 114 LDL Cholesterol, Calculated 68 HDL Cholesterol 28 L Cholesterol/HDL Ratio 4.0 Thyroid Stimulating Hormone (TSH) 3.680 Bedside Glucose 92 99 Medications Medications Current Medications Ondansetron HCl (Zofran Inj) 4 mg Q6H PRN IV NAUSEA AND/OR VOMITING; Start at 18:00 Acetaminophen (Tylenol Tab) 650 mg Q6H PRN PO PAIN LEVEL 1-3 OR FEVER; Start at 18:00 Acetaminophen/ Hydrocodone Bitart ([place] (5/325)) 1 tab Q6H PRN PO MODERATE PAIN LEVEL 4-6; Start 04/25/17 at 18:00 Morphine Sulfate (morphine) 2 mg Q4H PRN IV SEVERE PAIN LEVEL 7-10; Start 04/25 at 18:00 Docusate Sodium (Colace) 100 mg Q12H PRN PO CONSTIPATION; Start 04/25/17 at 18: 00 Magnesium Hydroxide (Milk Of Mag) 30 ml DAILY PRN PO CONSTIPATION; Start at 18:00 Sodium Biphosphate/ Sodium Phosphate (Fleet Enema) 133 ml DAILY PRN [place] CONSTIPATION; Start 04/25/17 at 18:00 Pantoprazole (Protonix Iv) 40 mg DAILY@06 IV Last administered on 04/26/17 05: 18; Admin Dose 40 MG; Start 04/26/17 at 06:00 Lorazepam (Ativan) 0.5 mg Q6H PRN IV ANXIETY; Start 04/25/17 at 18:00 Hydralazine HCl (Apresoline) 10 mg Q6H PRN IV ELEVATED BLOOD PRESSURE; Start at 18:00 Nitroglycerin (Nitroglycerin (Sl Tab) 0.4 Mg) 1 tab Q5M PRN SL ANGINA; Start at 18:00 Atorvastatin Calcium (Lipitor) 20 mg HS PO Last administered on 04/25/17 21:43 ; Admin Dose 20 MG; Start 04/25/17 at 21:00 Donepezil HCl (Aricept) 5 mg DAILY PO ; Start 04/26/17 at 09:00 Famotidine (Pepcid) 20 mg Q24H PO Last administered on 04/25/17 21:43; Admin Dose 20 MG; Start 04/25/17 at 21:00 Folic Acid (Folic Acid) 1 mg DAILY PO ; Start 04/26/17 at 09:00 Furosemide (Lasix) 20 mg DAILY PO ; Start 04/26/17 at 09:00; Status Future Hold Loratadine (Claritin) 10 mg DAILY PO ; Start 04/26/17 at 09:00 Megestrol Acetate (Megace) 40 mg DAILY PO ; Start 04/26/17 at 09:00 Tamsulosin HCl (Flomax) 0.4 mg HS PO Last administered on 04/25/17 21:43; Admin Dose 0.4 MG; Start 04/25/17 at 21:00 Diagnostic Test (Pha) (Accu-Chek) 1 ea 02 XX Last administered on 04/26/17 02: 10; Admin Dose 1 EA; Start 04/26/17 at 02:00 Miscellaneous Information 1 ea NOTE XX ; Start 04/25/17 at 19:00 Glucose (Glutose) 15 gm Q15M PRN PO DECREASED GLUCOSE; Start 04/25/17 at 19:00 Glucose (Glutose) 22.5 gm Q15M PRN PO DECREASED GLUCOSE; Start 04/25/17 at 19: 00 Dextrose (D50w Syringe) 25 ml Q15M PRN IV DECREASED GLUCOSE; Start 04/25/17 at 19:00 Dextrose (D50w Syringe) 50 ml Q15M PRN IV DECREASED GLUCOSE; Start 04/25/17 at 19:00 Glucagon (Glucagen) 1 mg Q15M PRN IM DECREASED GLUCOSE; Start 04/25/17 at 19:00 Glucose (Glutose) 15 gm Q15M PRN BUCCAL DECREASED GLUCOSE; Start 04/25/17 at 19 :00 Ciprofloxacin HCl 1 applic 1 applic BID RIGHT EYE Last administered on 08:49; Admin Dose 1 APPLIC; Start 04/25/17 at 21:00 Dextrose/Sodium Chloride (D5-1/2ns) 1,000 ml @ 75 mls/hr [id number] IV Last administered on 04/26/17 15:16; Admin Dose 75 MLS/HR; Start 04/26/17 at 00:00 Epoetin Richar (Epogen (Esrd)) 10,000 units ONCE ONCE SC ; Start 04/26/17 at 17: 30; Stop 04/26/17 at 17:31 MAIKEL CANO NP Apr 26, 2017 16:46
[2017-04-26] MEDS ORDERED: EPOETIN 10000 UNITS/1 ML INJ (ESRD) SC ONE (17:30)
--- NOTE | 2017-04-26 19:33 | CONS ---
Date/Time of Note Date/Time of Note DATE: 04/26/17 TIME: 19:29 Assessment/Plan Assessment/Plan Chief Complaint/Hosp Course - ESRD Hemod[facility] dependent @ [facility] [place] [facility] - Severe anemia - Severe Malnutrition - Anemia - CAD/CHF PLAN: - Low Hgb was not improving with higher doses of EPO & IRON & had further drop which required hospital admission - Blood Transfusion - Bedside HD - Encourage PO Intake - Follow up with H/H THANK YOU Augie FUENTES Problems: Consultation Date/Type/Reason Admit Date/Time Apr 25, 2017 at 16:42 Date of Consultation: Apr 26, 2017 Type of Consultation: NEPHROLOGY Reason for Consultation ESRD Hemodialysis dependent Constitutional: poor po Eyes: no complaints ENT: no complaints Respiratory: shortness of breath Cardiovascular: no complaints Gastrointestinal: decreased appetite Genitourinary: no complaints Musculoskeletal: no complaints Skin: no complaints Past Medical History Medical History: angina, congestive heart failure, coronary artery disease, diabetes, hypertension, renal disease, other (esrd,DM,pacemaker ) Past Surgical History Past Surgical Hx: no surgical history, other (av fistula) Family History Significant Family History: no pertinent family hx Social History Alcohol Use: none Smoking Status: Never smoker Drug Use: none Exam/Review of Systems Vital Signs Vitals Vital Signs Date Time Temp Pulse Resp B/P Pulse Ox O2 Delivery O2 Flow Rate FiO2 04/26/17 17:00 103 04/26/17 15:45 98.2 20 112/44 95 04/26/17 08:05 Nasal Cannula 2.0 Intake and Output 04/25/17 04/25/17 04/26/17 15:00 23:00 07:00 Intake Total 430 ml 350 ml Balance 430 ml 350 ml Exam Constitutional: alert Psych: no complaints Head: normocephalic ENMT: nl external ears & nose Neck: supple Respiratory: crackles/rales Cardiovascular: edema, systolic murmur Gastrointestinal: soft Results Result Diagram: 04/26/17 0706 04/26/17 0706 Results 24 hrs Laboratory Tests Test 04/25/17 21:40 04/25/17 22:32 04/26/17 01:39 04/26/17 06:14 Bedside Glucose 89 114 Lactic Acid Level 1.2 Lab Scanned Report BLOOD TRANSFUSION Test 04/26/17 07:06 04/26/17 08:13 04/26/17 12:32 04/26/17 18:10 White Blood Count 8.4 Red Blood Count 3.44 #L Hemoglobin 9.7 #L Hematocrit 31.2 L Mean Corpuscular Volume 90.7 Mean Corpuscular Hemoglobin 28.2 L Mean Corpuscular Hemoglobin Concent 31.1 L Red Cell Distribution Width 18.5 H Platelet Count 231 Mean Platelet Volume 9.9 Neutrophils % 54.8 Lymphocytes % 13.9 L Monocytes % 13.5 H Eosinophils % 16.8 H Basophils % 0.8 Nucleated Red Blood Cells % 0.0 Neutrophils # 4.6 Lymphocytes # 1.2 Monocytes # 1.1 H Eosinophils # 1.4 H Basophils # 0.1 Nucleated Red Blood Cells # 0.0 Sodium Level 141 Potassium Level 4.3 Chloride Level 111 H Carbon Dioxide Level 27 Anion Gap 7 L Blood Urea Nitrogen 48 H Creatinine 5.74 H Glucose Level 94 Hemoglobin A1c 4.8 Calcium Level 7.2 L Phosphorus Level 4.4 Magnesium Level 2.0 Triglycerides Level 88 Cholesterol Level 114 LDL Cholesterol, Calculated 68 HDL Cholesterol 28 L Cholesterol/HDL Ratio 4.0 Thyroid Stimulating Hormone (TSH) 3.680 Bedside Glucose 92 99 151 Medications Medications Current Medications Ondansetron HCl (Zofran Inj) 4 mg Q6H PRN IV NAUSEA AND/OR VOMITING; Start at 18:00 Acetaminophen (Tylenol Tab) 650 mg Q6H PRN PO PAIN LEVEL 1-3 OR FEVER; Start at 18:00 Acetaminophen/ Hydrocodone Bitart ([place] (5/325)) 1 tab Q6H PRN PO MODERATE PAIN LEVEL 4-6; Start 04/25/17 at 18:00 Morphine Sulfate (morphine) 2 mg Q4H PRN IV SEVERE PAIN LEVEL 7-10; Start 04/25 at 18:00 Docusate Sodium (Colace) 100 mg Q12H PRN PO CONSTIPATION; Start 04/25/17 at 18: 00 Magnesium Hydroxide (Milk Of Mag) 30 ml DAILY PRN PO CONSTIPATION; Start at 18:00 Sodium Biphosphate/ Sodium Phosphate (Fleet Enema) 133 ml DAILY PRN [place] CONSTIPATION; Start 04/25/17 at 18:00 Pantoprazole (Protonix Iv) 40 mg DAILY@06 IV Last administered on 04/26/17t 05: 18; Admin Dose 40 MG; Start 04/26/17 at 06:00 Lorazepam (Ativan) 0.5 mg Q6H PRN IV ANXIETY; Start 04/25/17 at 18:00 Hydralazine HCl (Apresoline) 10 mg Q6H PRN IV ELEVATED BLOOD PRESSURE; Start at 18:00 Nitroglycerin (Nitroglycerin (Sl Tab) 0.4 Mg) 1 tab Q5M PRN SL ANGINA; Start at 18:00 Atorvastatin Calcium (Lipitor) 20 mg HS PO Last administered on 04/25/17 21:43 ; Admin Dose 20 MG; Start 04/25/17 at 21:00 Donepezil HCl (Aricept) 5 mg DAILY PO ; Start 04/26/17 at 09:00 Famotidine (Pepcid) 20 mg Q24H PO Last administered on 04/25/17 21:43; Admin Dose 20 MG; Start 04/25/17 at 21:00 Folic Acid (Folic Acid) 1 mg DAILY PO ; Start 04/26/17 at 09:00 Furosemide (Lasix) 20 mg DAILY PO ; Start 04/26/17 at 09:00; Status Future Hold Loratadine (Claritin) 10 mg DAILY PO ; Start 04/26/17 at 09:00 Megestrol Acetate (Megace) 40 mg DAILY PO ; Start 04/26/17 at 09:00 Tamsulosin HCl (Flomax) 0.4 mg HS PO Last administered on 04/25/17 21:43; Admin Dose 0.4 MG; Start 04/25/17 at 21:00 Diagnostic Test (Pha) (Accu-Chek) 1 ea 02 XX Last administered on 04/26/17 02: 10; Admin Dose 1 EA; Start 04/26/17 at 02:00 Miscellaneous Information 1 ea NOTE XX ; Start 04/25/17 at 19:00 Glucose (Glutose) 15 gm Q15M PRN PO DECREASED GLUCOSE; Start 04/25/17 at 19:00 Glucose (Glutose) 22.5 gm Q15M PRN PO DECREASED GLUCOSE; Start 04/25/17 at 19: 00 Dextrose (D50w Syringe) 25 ml Q15M PRN IV DECREASED GLUCOSE; Start 04/25/17 at 19:00 Dextrose (D50w Syringe) 50 ml Q15M PRN IV DECREASED GLUCOSE; Start 04/25/17 at 19:00 Glucagon (Glucagen) 1 mg Q15M PRN IM DECREASED GLUCOSE; Start 04/25/17 at 19:00 Glucose (Glutose) 15 gm Q15M PRN BUCCAL DECREASED GLUCOSE; Start 04/25/17 at 19 :00 Ciprofloxacin HCl 1 applic 1 applic BID RIGHT EYE Last administered on 08:49; Admin Dose 1 APPLIC; Start 04/25/17 at 21:00 Dextrose/Sodium Chloride (D5-1/2ns) 1,000 ml @ 75 mls/hr [id number] IV Last administered on 04/26/17 15:16; Admin Dose 75 MLS/HR; Start 04/26/17 at 00:00 DENVER ANTONY MD Apr 26, 2017 19:33
[2017-04-26] MEDS: TAMSULOSIN (SR) 0.4 MG CAP PO SCH (21:00)
[2017-04-26] MEDS: ATORVASTATIN 20 MG TAB PO SCH (21:00)
[2017-04-27] VITALS (24 sets, daily range): BP systolic 95–165; BP diastolic 53–112; PULSE 67–115; RESP 16–24
[2017-04-27] MEDS: DEXTROSE 5%-0.45% NACL 1,000 ML IV SCH (05:25)
[2017-04-27] MEDS: PANTOPRAZOLE 40 MG INJ IV SCH (05:28)
[2017-04-27] MEDS ORDERED: PROPOFOL 200 MG INJ ONE (07:00)
[2017-04-27 07:37] LABS: BASOPHIL # 0.1 10^3/ul (0.0-0.1); EOSINOPHILS # 1.2 10^3/ul (0.0-0.5); EOSINOPHILS % 16.1 % (0.0-7.0); HEMATOCRIT 30.7 % (42.0-52.0); HEMOGLOBIN 9.3 g/dl (14.0-18.0); LYMPHOCYTES # 1.2 10^3/ul (0.8-2.9); LYMPHOCYTES % 16.7 % (15.0-51.0); MEAN CORPUSCULAR HEMOGLOBIN 27.4 pg (29.0-33.0); MEAN CORPUSCULAR HGB CONC 30.3 g/dl (32.0-37.0); MEAN CORPUSCULAR VOLUME 90.3 fl (82.0-101.0); MEAN PLATELET VOLUME 9.8 fl (7.4-10.4); MONOCYTES % 14.1 % (0.0-11.0); NEUTROPHIL # 3.8 10^3/ul (1.6-7.5); NEUTROPHILS % 51.7 % (39.0-77.0); PLATELET COUNT 197 10^3/UL (140-415); RED CELL DISTRIBUTION WIDTH 18.4 % (11.5-14.5); WHITE BLOOD COUNT 7.4 10^3/ul (4.8-10.8)
[2017-04-27] MEDS: INSULIN ASPART [NOVOLOG] 3 ML PEN SC SCH ×4 (08:00→20:56)
[2017-04-27 08:01] LABS: CALCIUM 6.9 mg/dl (8.4-10.2); CREATININE 3.8 mg/dl (0.61-1.24); POTASSIUM 3.6 mmol/L (3.5-5.1)
[2017-04-27] MEDS: MEGESTROL 40 MG TAB PO SCH (08:15)
[2017-04-27] MEDS: FOLIC ACID 1 MG TAB PO SCH (08:15)
[2017-04-27] MEDS: DONEPEZIL 5 MG TAB PO SCH (08:15)
[2017-04-27] MEDS: LORATADINE 10 MG TAB PO SCH (08:15)
[2017-04-27] MEDS: CIPROFLOXACIN 0.3% 3.5 GM OPH OINT RIGHT EYE SCH ×2 (08:16→20:53)
--- NOTE | 2017-04-27 11:27 | CONS ---
Date/Time of Note Date/Time of Note DATE: 04/27/17 TIME: 11:26 Assessment/Plan Assessment/Plan Chief Complaint/Hosp Course - [place] [facility] [place] Severe anemia - Severe Malnutrition - Anemia - CAD/CHF PLAN: - Low Hgb was not improving with higher doses of EPO & IRON & had further drop which required hospital admission - Blood Transfusion - Bedside HD was done yesterday - Encourage PO Intake - Follow up with H/H - Plan for EGD today - D/C IVF, Fleet enema, MOM - Dialysis sunday Problems: Consultation Date/Type/Reason Admit Date/Time Apr 25, 2017 at 16:42 Initial Consult Date 04/26/17 Type of Consultation: NEPHROLOGY Reason for Consultation ESRD on hemodialysis Referring Provider: CARINA LINCOLN 24 HR Interval Summary Subjective hx not possible: pt non-verbal Constitutional: no complaints Exam/Review of Systems Vital Signs Vitals Vital Signs Date Time Temp Pulse Resp B/P Pulse Ox O2 Delivery O2 Flow Rate FiO2 04/27/17 08:20 70 04/27/17 08:15 Nasal Cannula 2.0 04/27/17 07:52 98.6 19 149/66 98 Intake and Output 04/26/17 04/26/17 04/27/17 15:00 23:00 07:00 Intake Total 1525 ml 970 ml Output Total 1800 ml Balance -275 ml 970 ml Exam Constitutional: non-verbal Psych: no complaints Head: normocephalic Neck: supple Respiratory: crackles/rales Cardiovascular: edema, systolic murmur Gastrointestinal: soft Results Result Diagram: 04/27/17 0657 04/27/17 0657 Results 24 hrs Laboratory Tests Test 04/26/17 12:32 04/26/17 18:10 04/26/17 21:21 04/27/17 06:57 Bedside Glucose 99 151 105 White Blood Count 7.4 Red Blood Count 3.40 L Hemoglobin 9.3 L Hematocrit 30.7 L Mean Corpuscular Volume 90.3 Mean Corpuscular Hemoglobin 27.4 L Mean Corpuscular Hemoglobin Concent 30.3 L Red Cell Distribution Width 18.4 H Platelet Count 197 Mean Platelet Volume 9.8 Neutrophils % 51.7 Lymphocytes % 16.7 Monocytes % 14.1 H Eosinophils % 16.1 H Basophils % 1.0 Nucleated Red Blood Cells % 0.0 Neutrophils # 3.8 Lymphocytes # 1.2 Monocytes # 1.0 H Eosinophils # 1.2 H Basophils # 0.1 Nucleated Red Blood Cells # 0.0 Sodium Level 141 Potassium Level 3.6 Chloride Level 110 Carbon Dioxide Level 31 Anion Gap 4 L Blood Urea Nitrogen 22 #H Creatinine 3.80 #H Glucose Level 97 Calcium Level 6.9 L Test 04/27/17 08:14 Bedside Glucose 92 Medications Medications Current Medications Ondansetron HCl (Zofran Inj) 4 mg Q6H PRN IV NAUSEA AND/OR VOMITING; Start at 18:00 Acetaminophen (Tylenol Tab) 650 mg Q6H PRN PO PAIN LEVEL 1-3 OR FEVER; Start at 18:00 Acetaminophen/ Hydrocodone Bitart ([place] (5/325)) 1 tab Q6H PRN PO MODERATE PAIN LEVEL 4-6; Start 04/25/17 at 18:00 Morphine Sulfate (morphine) 2 mg Q4H PRN IV SEVERE PAIN LEVEL 7-10; Start 04/25 at 18:00 Docusate Sodium (Colace) 100 mg Q12H PRN PO CONSTIPATION; Start 04/25/17 at 18: 00 Pantoprazole (Protonix Iv) 40 mg DAILY@06 IV Last administered on 04/27/17 05: 28; Admin Dose 40 MG; Start 04/26/17 at 06:00 Lorazepam (Ativan) 0.5 mg Q6H PRN IV ANXIETY; Start 04/25/17 at 18:00 Hydralazine HCl (Apresoline) 10 mg Q6H PRN IV ELEVATED BLOOD PRESSURE; Start at 18:00 Nitroglycerin (Nitroglycerin (Sl Tab) 0.4 Mg) 1 tab Q5M PRN SL ANGINA; Start at 18:00 Atorvastatin Calcium (Lipitor) 20 mg HS PO Last administered on 04/25/17 21:43 ; Admin Dose 20 MG; Start 04/25/17 at 21:00 Donepezil HCl (Aricept) 5 mg DAILY PO ; Start 04/26/17 at 09:00 Famotidine (Pepcid) 20 mg Q24H PO Last administered on 04/25/17 21:43; Admin Dose 20 MG; Start 04/25/17 at 21:00; Status Future Hold Folic Acid (Folic Acid) 1 mg DAILY PO ; Start 04/26/17 at 09:00 Furosemide (Lasix) 20 mg DAILY PO ; Start 04/26/17 at 09:00; Status Future Hold Loratadine (Claritin) 10 mg DAILY PO ; Start 04/26/17 at 09:00 Megestrol Acetate (Megace) 40 mg DAILY PO ; Start 04/26/17 at 09:00 Tamsulosin HCl (Flomax) 0.4 mg HS PO Last administered on 04/25/17 21:43; Admin Dose 0.4 MG; Start 04/25/17 at 21:00 Diagnostic Test (Pha) (Accu-Chek) 1 ea 02 XX Last administered on 04/26/17 02: 10; Admin Dose 1 EA; Start 04/26/17 at 02:00 Miscellaneous Information 1 ea NOTE XX ; Start 04/25/17 at 19:00 Glucose (Glutose) 15 gm Q15M PRN PO DECREASED GLUCOSE; Start 04/25/17 at 19:00 Glucose (Glutose) 22.5 gm Q15M PRN PO DECREASED GLUCOSE; Start 04/25/17 at 19: 00 Dextrose (D50w Syringe) 25 ml Q15M PRN IV DECREASED GLUCOSE; Start 04/25/17 at 19:00 Dextrose (D50w Syringe) 50 ml Q15M PRN IV DECREASED GLUCOSE; Start 04/25/17 at 19:00 Glucagon (Glucagen) 1 mg Q15M PRN IM DECREASED GLUCOSE; Start 04/25/17 at 19:00 Glucose (Glutose) 15 gm Q15M PRN BUCCAL DECREASED GLUCOSE; Start 04/25/17 at 19 :00 Ciprofloxacin HCl (Ciloxan 0.3% Oph Oint) 1 applic BID RIGHT EYE Last administered on 04/27/17 08:16; Admin Dose 1 APPLIC; Start 04/25/17 at 21:00 DENVER ANTONY MD Apr 27, 2017 11:27
--- NOTE | 2017-04-27 14:38 | PN ---
Date/Time of Note Date/Time of Note DATE: 04/27/17 TIME: 14:35 Assessment/Plan VTE Prophylaxis VTE Prophylaxis Intervention: SCD's Lines/Catheters IV Catheter Type (from Nrsg): Peripheral IV Urinary Cath still in place: No Assessment/Plan Assessment/Plan 1. Severe anemia, consider CKD related, epogen, GI for EGD today 2. ESRD, DD, HD today 3. HTN, controlled 4. Dyslipidemia, on statin 5. BPH 6. Dementia, on aricept Subjective 24 Hr Interval Summary Free Text/Dictation no distress Exam/Review of Systems Vital Signs Vitals Vital Signs Date Time Temp Pulse Resp B/P Pulse Ox O2 Delivery O2 Flow Rate FiO2 04/27/17 12:56 83 04/27/17 12:02 98.1 17 113/56 98 04/27/17 08:15 Nasal Cannula 2.0 Intake and Output 04/26/17 04/26/17 04/27/17 15:00 23:00 07:00 Intake Total 1525 ml 970 ml Output Total 1800 ml Balance -275 ml 970 ml Exam Constitutional: alert, non-verbal Head: atraumatic, normocephalic Eyes: EOMI, PERRL, nl conjunctiva, nl lids ENMT: mucosa pink and moist, nl external ears & nose, nl lips & teeth, nl nasal mucosa & septum Neck: non-tender, supple Respiratory: clear to auscultation, normal air movement, No congested cough, No crackles/rales, No diminished breath sounds, No intercostal retraction, No labored breathing, No other, No respirations, No tactile fremitus, No wheezing Cardiovascular: nl pulses, regular rate and rhythm, No S3, No S4, No bruits, No diastolic murmur, No edema, No gallop, No irregular rhythm, No jugular venous distention (JVD), No murmurs/extra sounds, No other, No rub, No systolic murmur Gastrointestinal: nl liver, spleen, non-tender, soft, No ascites, No bowel sounds, No distended, No firm, No hepatomegaly, No mass , No other, No rebound or guarding, No splenomegaly, No surgical scars, No tender Musculoskeletal: nl extremities to inspection Extremities: normal pulses, No calf tenderness, No clubbing, No cyanosis, No edema, No other, No palpable cord, No pitting pedal edema, No tenderness 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, 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 Results Result Diagram: 04/27/17 0657 04/27/17 0657 Results 24 hrs Laboratory Tests Test 04/26/17 18:10 04/26/17 21:21 04/27/17 06:57 04/27/17 08:14 Bedside Glucose 151 105 92 White Blood Count 7.4 Red Blood Count 3.40 L Hemoglobin 9.3 L Hematocrit 30.7 L Mean Corpuscular Volume 90.3 Mean Corpuscular Hemoglobin 27.4 L Mean Corpuscular Hemoglobin Concent 30.3 L Red Cell Distribution Width 18.4 H Platelet Count 197 Mean Platelet Volume 9.8 Neutrophils % 51.7 Lymphocytes % 16.7 Monocytes % 14.1 H Eosinophils % 16.1 H Basophils % 1.0 Nucleated Red Blood Cells % 0.0 Neutrophils # 3.8 Lymphocytes # 1.2 Monocytes # 1.0 H Eosinophils # 1.2 H Basophils # 0.1 Nucleated Red Blood Cells # 0.0 Sodium Level 141 Potassium Level 3.6 Chloride Level 110 Carbon Dioxide Level 31 Anion Gap 4 L Blood Urea Nitrogen 22 #H Creatinine 3.80 #H Glucose Level 97 Calcium Level 6.9 L Test 04/27/17 12:33 Bedside Glucose 97 Medications Medications Current Medications Ondansetron HCl (Zofran Inj) 4 mg Q6H PRN IV NAUSEA AND/OR VOMITING; Start at 18:00 Acetaminophen (Tylenol Tab) 650 mg Q6H PRN PO PAIN LEVEL 1-3 OR FEVER; Start at 18:00 Acetaminophen/ Hydrocodone Bitart ([place] (5/325)) 1 tab Q6H PRN PO MODERATE PAIN LEVEL 4-6; Start 04/25/17 at 18:00 Morphine Sulfate (morphine) 2 mg Q4H PRN IV SEVERE PAIN LEVEL 7-10; Start 04/25 at 18:00 Docusate Sodium (Colace) 100 mg Q12H PRN PO CONSTIPATION; Start 04/25/17 at 18: 00 Pantoprazole (Protonix Iv) 40 mg DAILY@06 IV Last administered on 04/27/17t 05: 28; Admin Dose 40 MG; Start 04/26/17 at 06:00 Lorazepam (Ativan) 0.5 mg Q6H PRN IV ANXIETY; Start 04/25/17 at 18:00 Hydralazine HCl (Apresoline) 10 mg Q6H PRN IV ELEVATED BLOOD PRESSURE; Start at 18:00 Nitroglycerin (Nitroglycerin (Sl Tab) 0.4 Mg) 1 tab Q5M PRN SL ANGINA; Start at 18:00 Atorvastatin Calcium (Lipitor) 20 mg HS PO Last administered on 04/25/17 21:43 ; Admin Dose 20 MG; Start 04/25/17 at 21:00 Donepezil HCl (Aricept) 5 mg DAILY PO ; Start 04/26/17 at 09:00 Famotidine (Pepcid) 20 mg Q24H PO Last administered on 04/25/17 21:43; Admin Dose 20 MG; Start 04/25/17 at 21:00; Status Future Hold Folic Acid (Folic Acid) 1 mg DAILY PO ; Start 04/26/17 at 09:00 Furosemide (Lasix) 20 mg DAILY PO ; Start 04/26/17 at 09:00; Status Future Hold Loratadine (Claritin) 10 mg DAILY PO ; Start 04/26/17 at 09:00 Megestrol Acetate (Megace) 40 mg DAILY PO ; Start 04/26/17 at 09:00 Tamsulosin HCl (Flomax) 0.4 mg HS PO Last administered on 04/25/17 21:43; Admin Dose 0.4 MG; Start 04/25/17 at 21:00 Diagnostic Test (Pha) (Accu-Chek) 1 ea 02 XX Last administered on 04/26/17 02: 10; Admin Dose 1 EA; Start 04/26/17 at 02:00 Miscellaneous Information 1 ea NOTE XX ; Start 04/25/17 at 19:00 Glucose (Glutose) 15 gm Q15M PRN PO DECREASED GLUCOSE; Start 04/25/17 at 19:00 Glucose (Glutose) 22.5 gm Q15M PRN PO DECREASED GLUCOSE; Start 04/25/17 at 19: 00 Dextrose (D50w Syringe) 25 ml Q15M PRN IV DECREASED GLUCOSE; Start 04/25/17 at 19:00 Dextrose (D50w Syringe) 50 ml Q15M PRN IV DECREASED GLUCOSE; Start 04/25/17 at 19:00 Glucagon (Glucagen) 1 mg Q15M PRN IM DECREASED GLUCOSE; Start 04/25/17 at 19:00 Glucose (Glutose) 15 gm Q15M PRN BUCCAL DECREASED GLUCOSE; Start 04/25/17 at 19 :00 Ciprofloxacin HCl (Ciloxan 0.3% Oph Oint) 1 applic BID RIGHT EYE Last administered on 04/27/17t 08:16; Admin Dose 1 APPLIC; Start 04/25/17 at 21:00 KURT MCKINNON MD Apr 27, 2017 14:38
--- NOTE | 2017-04-27 18:49 | OPPN ---
Date/Time of Note Date/Time of Note DATE: 04/27/17 TIME: 18:44 Proc Note GI Procedure Date 04/27/17 Pre-procedure Diagnosis * Anemia Post-procedure Diagnosis Impression: * Clots in the posterior pharynx, unable to define lesion * Mild gastritis * No bleeding site in the GI tract Plan: * Continue present regimen * Consider ENT evaluation . Procedure Performed: Endoscopy Surgeon JODI MIN MD [place] Machine Tender none Tourniquet Time none EBL none Transfusion required none Biopsy 1: None Grafts/Implants none Tubes/Drains none Complication(s) none Pt Condition post procedure: stable Disposition: PACU Indications: other (Anemia) Procedure Description After informed consent, with the patient/relatives understanding the procedure, its indications, potential risks and complications, including but not limited to : allergic reaction, bleeding, perforation or infection, and after all pertinent questions were answered to the patients satisfaction, the patient/ relatives signed witnessed informed consent. Following this, premedication was administered slowly IV push under careful cardiovascular and respiratory monitoring with pulse oximetry, automatic blood pressure, and secured entrance monitor. Once the sedative effect was achieved the patient was place in the left lateral decubitus, the panendoscope was introduced and advanced under visual control. Careful examination of the upper gastrointestinal tract, both on insertion as well as withdrawal of the instrument disclosing the following findings: POSTERIOR PHARYNX: There are clots in the posterior pharynx, no specific lesion is identified within examination ESOPHAGUS: the mucosa of the entire esophagus was carefully examined and showed the following findings: the mucosa appears within normal limits. There is no evidence of esophagitis, varices, neoplasm, or stricture. No Hiatal Hernia identified. STOMACH: Upon entrance to the stomach air was insufflated, the gastric clifton distended normally. The mucosa of the fundus, body and antrum of the stomach was carefully examined both head-on and on retroflexion, and showed the following findings: There is mild erythema of the mucosa of the antrum. Otherwise the mucosa appears within normal limits with no abnormalities. There is no evidence of ulcers or neoplasm. PYLORUS: The pylorus was carefully examined and showed the following findings: the pylorus appears patent and within normal limits, with no evidence of gastric outlet obstruction. DUODENUM: The duodenal mucosa was carefully examined in the duodenal bulb as well as the second portion of the duodenum and showed the following findings: the mucosa appears unremarkable with no evidence of duodenitis, ulcer or neoplasm. Copies To: CC: JODI MIN MD, MORDO MD Apr 27, 2017 18:49
--- NOTE | 2017-04-27 18:49 | HPN ---
Date/Time of Note Date/Time of Note DATE: 04/27/17 TIME: 18:49 Interval H&P Admission Note Pt. seen H&P reviewed: No system changes JODI MIN MD Apr 27, 2017 18:49
[2017-04-27] MEDS ORDERED: hydrALAzine 20 MG INJ IV PRN (19:00)
[2017-04-27] MEDS ORDERED: ONDANSETRON 4 MG INJ IV PRN (19:00)
[2017-04-27] MEDS ORDERED: EPHEDrine SULFATE 50 MG/5 ML SYG IV PRN (19:00)
[2017-04-27] MEDS ORDERED: FENTAnyl 50 MCG/ML VIAL IV PRN ×3 (19:00)
[2017-04-27] MEDS ORDERED: LABETALOL HCL 20MG INJ IV PRN (19:00)
[2017-04-27] MEDS ORDERED: METOCLOPRAMIDE 10 MG INJ IV PRN (19:00)
[2017-04-27] MEDS: TAMSULOSIN (SR) 0.4 MG CAP PO SCH (20:52)
[2017-04-27] MEDS: ATORVASTATIN 20 MG TAB PO SCH (20:52)
[2017-04-28] VITALS (21 sets, daily range): BP systolic 85–143; BP diastolic 51–69; PULSE 62–115; RESP 16–20
[2017-04-28] MEDS: ACCU-CHEK XX SCH (02:00)
[2017-04-28] MEDS: PANTOPRAZOLE 40 MG INJ IV SCH (06:18)
[2017-04-28] MEDS: INSULIN ASPART [NOVOLOG] 3 ML PEN SC SCH ×4 (08:00→20:53)
[2017-04-28] MEDS: DEXTROSE 50% 50 ML SYRINGE IV PRN (08:08)
[2017-04-28 08:17] LABS: BASOPHIL # 0.1 10^3/ul (0.0-0.1); BASOPHILS % 1.1 % (0.0-2.0); EOSINOPHILS % 12.3 % (0.0-7.0); HEMATOCRIT 36.2 % (42.0-52.0); HEMOGLOBIN 10.9 g/dl (14.0-18.0); LYMPHOCYTES # 1.5 10^3/ul (0.8-2.9); LYMPHOCYTES % 18.2 % (15.0-51.0); MEAN CORPUSCULAR HGB CONC 30.1 g/dl (32.0-37.0); MEAN CORPUSCULAR VOLUME 93.1 fl (82.0-101.0); MEAN PLATELET VOLUME 9.7 fl (7.4-10.4); NEUTROPHIL # 4.5 10^3/ul (1.6-7.5); NEUTROPHILS % 56.2 % (39.0-77.0); PLATELET COUNT 195 10^3/UL (140-415); RED BLOOD COUNT 3.89 10^6/ul (4.70-6.10); RED CELL DISTRIBUTION WIDTH 18.2 % (11.5-14.5)
[2017-04-28] MEDS: MEGESTROL 40 MG TAB PO SCH (08:33)
[2017-04-28] MEDS: DONEPEZIL 5 MG TAB PO SCH (08:33)
[2017-04-28] MEDS: FOLIC ACID 1 MG TAB PO SCH (08:33)
[2017-04-28] MEDS: LORATADINE 10 MG TAB PO SCH (08:33)
[2017-04-28] MEDS: CIPROFLOXACIN 0.3% 3.5 GM OPH OINT RIGHT EYE SCH ×2 (08:35→20:53)
[2017-04-28 08:49] LABS: CALCIUM 7.1 mg/dl (8.4-10.2); CREATININE 5.23 mg/dl (0.61-1.24); POTASSIUM 3.9 mmol/L (3.5-5.1)
--- NOTE | 2017-04-28 17:18 | PN ---
Date/Time of Note Date/Time of Note DATE: 04/28/17 TIME: 17:14 Assessment/Plan VTE Prophylaxis VTE Prophylaxis Intervention: SCD's Lines/Catheters IV Catheter Type (from Nrs): Peripheral IV Urinary Cath still in place: No Assessment/Plan Chief Complaint/Hosp Course 1. Severe anemia, consider CKD related, epogen. EGD did not show acute GI source of bleed, did see nasopharyngeal clot, however very unlikely nose bleed is cause of severe anemia. After speaking with son, appears patient always scratches himself and bleeds slowly from these scratches, almost on a daily basis. Anemia may have been caused by a very slow rate of loss through superficial blood loss combined with ESRD causing low production, eventually catching up causing symptoms. will monitor overnight, patient's son wants patient back at home instead of SNF. If patient is still stable, hgb warner, in 1- 2 days, will DC home with home pt. 2. ESRD, DD, HD 3. HTN, controlled 4. Dyslipidemia, on statin 5. BPH 6. Dementia, on aricept Problems: Subjective 24 Hr Interval Summary Free Text/Dictation no acute complaints. Exam/Review of Systems Vital Signs Vitals Vital Signs Date Time Temp Pulse Resp B/P Pulse Ox O2 Delivery O2 Flow Rate FiO2 04/28/17 16:21 100 04/28/17 15:57 98.1 18 124/61 97 04/28/17 08:00 Nasal Cannula 2.0 Intake and Output 04/27/17 04/27/17 04/28/17 15:00 23:00 07:00 Intake Total 450 ml 50 ml Balance 450 ml 50 ml Exam Physical exam General: Patient is laying in bed and answers questions appropriately Mentation: Patient is alert and oriented x 2 Head: Normocephalic atraumatic Eyes: EOMI, pupils reactive to light Neck: Supple, nontender, midline Respiratory: Clear to auscultation bilaterally Cardiovascular: regular rate, no obvious murmurs Gastrointestinal: non-tender to palpation, bowel sounds heard. Neurological: Moves all extremities spontaneously, but moderately weak in all extremities Skin: No new skin lesions Results Result Diagram: 04/28/17 0747 04/28/17 0747 Results 24 hrs Laboratory Tests Test 04/27/17 20:55 04/28/17 07:47 04/28/17 08:01 04/28/17 08:22 Bedside Glucose 75 55 L 103 White Blood Count 8.0 Red Blood Count 3.89 L Hemoglobin 10.9 L Hematocrit 36.2 L Mean Corpuscular Volume 93.1 Mean Corpuscular Hemoglobin 28.0 L Mean Corpuscular Hemoglobin Concent 30.1 L Red Cell Distribution Width 18.2 H Platelet Count 195 Mean Platelet Volume 9.7 Neutrophils % 56.2 Lymphocytes % 18.2 Monocytes % 12.0 H Eosinophils % 12.3 H Basophils % 1.1 Nucleated Red Blood Cells % 0.0 Neutrophils # 4.5 Lymphocytes # 1.5 Monocytes # 1.0 H Eosinophils # 1.0 H Basophils # 0.1 Nucleated Red Blood Cells # 0.0 Sodium Level 140 Potassium Level 3.9 Chloride Level 110 Carbon Dioxide Level 27 Anion Gap 7 L Blood Urea Nitrogen 29 H Creatinine 5.23 H Glucose Level 65 #L Calcium Level 7.1 L Test 04/28/17 11:34 04/28/17 16:55 Bedside Glucose 103 93 Medications Medications Current Medications Ondansetron HCl (Zofran Inj) 4 mg Q6H PRN IV NAUSEA AND/OR VOMITING; Start at 18:00 Acetaminophen (Tylenol Tab) 650 mg Q6H PRN PO PAIN LEVEL 1-3 OR FEVER; Start at 18:00 Acetaminophen/ Hydrocodone Bitart ([place] (5/325)) 1 tab Q6H PRN PO MODERATE PAIN LEVEL 4-6; Start 04/25/17 at 18:00 Morphine Sulfate (morphine) 2 mg Q4H PRN IV SEVERE PAIN LEVEL 7-10; Start 04/25 at 18:00 Docusate Sodium (Colace) 100 mg Q12H PRN PO CONSTIPATION; Start 04/25/17 at 18: 00 Pantoprazole (Protonix Iv) 40 mg DAILY@06 IV Last administered on 04/28/17t 06: 18; Admin Dose 40 MG; Start 04/26/17 at 06:00 Lorazepam (Ativan) 0.5 mg Q6H PRN IV ANXIETY; Start 04/25/17 at 18:00 Hydralazine HCl (Apresoline) 10 mg Q6H PRN IV ELEVATED BLOOD PRESSURE; Start at 18:00 Nitroglycerin (Nitroglycerin (Sl Tab) 0.4 Mg) 1 tab Q5M PRN SL ANGINA; Start at 18:00 Atorvastatin Calcium (Lipitor) 20 mg HS PO Last administered on 04/27/17 20:52 ; Admin Dose 20 MG; Start 04/25/17 at 21:00 Donepezil HCl (Aricept) 5 mg DAILY PO Last administered on 04/28/17 08:33; Admin Dose 5 MG; Start 04/26/17 at 09:00 Famotidine (Pepcid) 20 mg Q24H PO Last administered on 04/25/17 21:43; Admin Dose 20 MG; Start 04/25/17 at 21:00; Status Future Hold Folic Acid (Folic Acid) 1 mg DAILY PO Last administered on 04/28/17 08:33; Admin Dose 1 MG; Start 04/26/17 at 09:00 Furosemide (Lasix) 20 mg DAILY PO ; Start 04/26/17 at 09:00; Status Future Hold Loratadine (Claritin) 10 mg DAILY PO Last administered on 04/28/17 08:33; Admin Dose 10 MG; Start 04/26/17 at 09:00 Megestrol Acetate (Megace) 40 mg DAILY PO Last administered on 04/28/17 08:33 ; Admin Dose 40 MG; Start 04/26/17 at 09:00 Tamsulosin HCl (Flomax) 0.4 mg HS PO Last administered on 04/27/17 20:52; Admin Dose 0.4 MG; Start 04/25/17 at 21:00 Diagnostic Test (Pha) (Accu-Chek) 1 ea 02 XX Last administered on 04/26/17 02: 10; Admin Dose 1 EA; Start 04/26/17 at 02:00 Miscellaneous Information 1 ea NOTE XX ; Start 04/25/17 at 19:00 Glucose (Glutose) 15 gm Q15M PRN PO DECREASED GLUCOSE; Start 04/25/17 at 19:00 Glucose (Glutose) 22.5 gm Q15M PRN PO DECREASED GLUCOSE; Start 04/25/17 at 19: 00 Dextrose (D50w Syringe) 25 ml Q15M PRN IV DECREASED GLUCOSE Last administered on 04/28/17 08:08; Admin Dose 25 ML; Start 04/25/17 at 19:00 Dextrose (D50w Syringe) 50 ml Q15M PRN IV DECREASED GLUCOSE; Start 04/25/17 at 19:00 Glucagon (Glucagen) 1 mg Q15M PRN IM DECREASED GLUCOSE; Start 04/25/17 at 19:00 Glucose (Glutose) 15 gm Q15M PRN BUCCAL DECREASED GLUCOSE; Start 04/25/17 at 19 :00 Ciprofloxacin HCl (Ciloxan 0.3% Oph Oint) 1 applic BID RIGHT EYE Last administered on 04/28/17t 08:35; Admin Dose 1 APPLIC; Start 04/25/17 at 21:00 TYLER MADDEN Apr 28, 2017 17:18
[2017-04-28] MEDS: ATORVASTATIN 20 MG TAB PO SCH (20:52)
[2017-04-28] MEDS: TAMSULOSIN (SR) 0.4 MG CAP PO SCH (20:52)
[2017-04-29] VITALS (12 sets, daily range): BP systolic 106–164; BP diastolic 58–84; PULSE 59–112; RESP 18–20
[2017-04-29] MEDS: ACCU-CHEK XX SCH (02:00)
[2017-04-29] MEDS: PANTOPRAZOLE 40 MG INJ IV SCH (05:29)
[2017-04-29] MEDS: INSULIN ASPART [NOVOLOG] 3 ML PEN SC SCH ×4 (07:57→20:41)
[2017-04-29 09:27] LABS: MAGNESIUM 1.8 mg/dl (1.7-2.5); PHOSPHORUS 3.7 mg/dl (2.5-4.9)
[2017-04-29] MEDS: LORATADINE 10 MG TAB PO SCH (09:29)
[2017-04-29] MEDS: FOLIC ACID 1 MG TAB PO SCH (09:29)
[2017-04-29] MEDS: DONEPEZIL 5 MG TAB PO SCH (09:29)
[2017-04-29] MEDS: MEGESTROL 40 MG TAB PO SCH (09:29)
[2017-04-29 09:36] LABS: BASOPHIL # 0.1 10^3/ul (0.0-0.1); BASOPHILS % 0.8 % (0.0-2.0); EOSINOPHILS # 1.2 10^3/ul (0.0-0.5); EOSINOPHILS % 16.1 % (0.0-7.0); HEMATOCRIT 34.8 % (42.0-52.0); HEMOGLOBIN 10.1 g/dl (14.0-18.0); LYMPHOCYTES # 1.2 10^3/ul (0.8-2.9); LYMPHOCYTES % 15.6 % (15.0-51.0); MEAN CORPUSCULAR HEMOGLOBIN 27.2 pg (29.0-33.0); MEAN CORPUSCULAR VOLUME 93.5 fl (82.0-101.0); MEAN PLATELET VOLUME 10.4 fl (7.4-10.4); MONOCYTES % 12.7 % (0.0-11.0); NEUTROPHIL # 4.2 10^3/ul (1.6-7.5); NEUTROPHILS % 54.4 % (39.0-77.0); PLATELET COUNT 157 10^3/UL (140-415); POSITIVE DIFF @See below; RED BLOOD COUNT 3.72 10^6/ul (4.70-6.10); RED CELL DISTRIBUTION WIDTH 17.9 % (11.5-14.5); WHITE BLOOD COUNT 7.7 10^3/ul (4.8-10.8)
[2017-04-29] MEDS: CIPROFLOXACIN 0.3% 3.5 GM OPH OINT RIGHT EYE SCH ×2 (09:37→20:40)
[2017-04-29 09:48] LABS: CALCIUM 6.8 mg/dl (8.4-10.2); CREATININE 4.54 mg/dl (0.61-1.24); POTASSIUM 3.7 mmol/L (3.5-5.1)
--- NOTE | 2017-04-29 13:19 | PN ---
Date/Time of Note Date/Time of Note DATE: 04/29/17 TIME: 13:18 Assessment/Plan VTE Prophylaxis VTE Prophylaxis Intervention: SCD's Lines/Catheters IV [facility]from [facility] [place] Urinary Cath still in place: No Assessment/Plan Chief Complaint/Hosp Course 1. Severe anemia, consider CKD related, epogen. EGD did not show acute GI source of bleed, did see nasopharyngeal clot, however very unlikely nose bleed is cause of severe anemia. After speaking with son, appears patient always scratches himself and bleeds slowly from these scratches, almost on a daily basis. Anemia may have been caused by a very slow rate of loss through superficial blood loss combined with ESRD causing low production, eventually catching up causing symptoms. will monitor overnight, patient's son wants patient back at home instead of SNF. If patient is still stable, hgb warner, in 1- 2 days, will DC home with home pt. 2. ESRD, DD, HD 3. HTN, controlled 4. Dyslipidemia, on statin 5. BPH 6. Dementia, on aricept Problems: Subjective 24 Hr Interval Summary Free Text/Dictation no acute complaints, pleasantly demented Exam/Review of Systems Vital Signs Vitals Vital Signs Date Time Temp Pulse Resp B/P Pulse Ox O2 Delivery O2 Flow Rate FiO2 04/29/17 11:56 99.0 112 20 125/76 99 04/29/17 08:30 2.0 04/28/17 08:00 Nasal Cannula Intake and Output 04/28/17 04/28/17 04/29/17 15:00 23:00 07:00 Intake Total 500 ml 100 ml Output Total 1400 ml Balance -900 ml 100 ml Exam Physical exam General: Patient is laying in bed and answers questions appropriately Mentation: Patient is alert and oriented x 2 Head: Normocephalic atraumatic Eyes: EOMI, pupils reactive to light Neck: Supple, nontender, midline Respiratory: Clear to auscultation bilaterally Cardiovascular: regular rate, no obvious murmurs Gastrointestinal: non-tender to palpation, bowel sounds heard. Neurological: Moves all extremities spontaneously, but moderately weak in all extremities Skin: No new skin lesions Results Result Diagram: 04/29/1744 04/29/1744 Results 24 hrs Laboratory Tests Test 04/28/17 16:55 04/28/17 20:49 04/29/17 07:55 04/29/17 08:44 Bedside Glucose 93 96 90 White Blood Count 7.7 Red Blood Count 3.72 L Hemoglobin 10.1 L Hematocrit 34.8 L Mean Corpuscular Volume 93.5 Mean Corpuscular Hemoglobin 27.2 L Mean Corpuscular Hemoglobin Concent 29.0 L Red Cell Distribution Width 17.9 H Platelet Count 157 Mean Platelet Volume 10.4 Neutrophils % 54.4 Lymphocytes % 15.6 Monocytes % 12.7 H Eosinophils % 16.1 H Basophils % 0.8 Nucleated Red Blood Cells % 0.0 Neutrophils # 4.2 Lymphocytes # 1.2 Monocytes # 1.0 H Eosinophils # 1.2 H Basophils # 0.1 Nucleated Red Blood Cells # 0.0 Sodium Level 139 Potassium Level 3.7 Chloride Level 109 Carbon Dioxide Level 29 Anion Gap 5 L Blood Urea Nitrogen 23 H Creatinine 4.54 H Glucose Level 85 Calcium Level 6.8 L Test 04/29/17 08:49 04/29/17 12:16 Phosphorus Level 3.7 Magnesium Level 1.8 Bedside Glucose 98 Medications Medications Current Medications Ondansetron HCl (Zofran Inj) 4 mg Q6H PRN IV NAUSEA AND/OR VOMITING; Start at 18:00 Acetaminophen (Tylenol Tab) 650 mg Q6H PRN PO PAIN LEVEL 1-3 OR FEVER; Start at 18:00 Acetaminophen/ Hydrocodone Bitart ([place] (5/325)) 1 tab Q6H PRN PO MODERATE PAIN LEVEL 4-6; Start 04/25/17 at 18:00 Morphine Sulfate (morphine) 2 mg Q4H PRN IV SEVERE PAIN LEVEL 7-10; Start 04/25 at 18:00 Docusate Sodium (Colace) 100 mg Q12H PRN PO CONSTIPATION; Start 04/25/17 at 18: 00 Pantoprazole (Protonix Iv) 40 mg DAILY@06 IV Last administered on 04/29/17t 05: 29; Admin Dose 40 MG; Start 04/26/17 at 06:00 Lorazepam (Ativan) 0.5 mg Q6H PRN IV ANXIETY; Start 04/25/17 at 18:00 Hydralazine HCl (Apresoline) 10 mg Q6H PRN IV ELEVATED BLOOD PRESSURE; Start at 18:00 Nitroglycerin (Nitroglycerin (Sl Tab) 0.4 Mg) 1 tab Q5M PRN SL ANGINA; Start at 18:00 Atorvastatin Calcium (Lipitor) 20 mg HS PO Last administered on 04/28/17 20:52 ; Admin Dose 20 MG; Start 04/25/17 at 21:00 Donepezil HCl (Aricept) 5 mg DAILY PO Last administered on 04/29/17 09:29; Admin Dose 5 MG; Start 04/26/17 at 09:00 Famotidine (Pepcid) 20 mg Q24H PO Last administered on 04/25/17 21:43; Admin Dose 20 MG; Start 04/25/17 at 21:00; Status Future Hold Folic Acid (Folic Acid) 1 mg DAILY PO Last administered on 04/29/17 09:29; Admin Dose 1 MG; Start 04/26/17 at 09:00 Furosemide (Lasix) 20 mg DAILY PO ; Start 04/26/17 at 09:00; Status Future Hold Loratadine (Claritin) 10 mg DAILY PO Last administered on 04/29/17 09:29; Admin Dose 10 MG; Start 04/26/17 at 09:00 Megestrol Acetate (Megace) 40 mg DAILY PO Last administered on 04/29/17 09:29 ; Admin Dose 40 MG; Start 04/26/17 at 09:00 Tamsulosin HCl (Flomax) 0.4 mg HS PO Last administered on 04/28/17 20:52; Admin Dose 0.4 MG; Start 04/25/17 at 21:00 Diagnostic Test (Pha) (Accu-Chek) 1 ea 02 XX Last administered on 04/26/17 02: 10; Admin Dose 1 EA; Start 04/26/17 at 02:00 Miscellaneous Information 1 ea NOTE XX ; Start 04/25/17 at 19:00 Glucose (Glutose) 15 gm Q15M PRN PO DECREASED GLUCOSE; Start 04/25/17 at 19:00 Glucose (Glutose) 22.5 gm Q15M PRN PO DECREASED GLUCOSE; Start 04/25/17 at 19: 00 Dextrose (D50w Syringe) 25 ml Q15M PRN IV DECREASED GLUCOSE Last administered on 04/28/17 08:08; Admin Dose 25 ML; Start 04/25/17 at 19:00 Dextrose (D50w Syringe) 50 ml Q15M PRN IV DECREASED GLUCOSE; Start 04/25/17 at 19:00 Glucagon (Glucagen) 1 mg Q15M PRN IM DECREASED GLUCOSE; Start 04/25/17 at 19:00 Glucose (Glutose) 15 gm Q15M PRN BUCCAL DECREASED GLUCOSE; Start 04/25/17 at 19 :00 Ciprofloxacin HCl (Ciloxan 0.3% Oph Oint) 1 applic BID RIGHT EYE Last administered on 04/29/17t 09:37; Admin Dose 1 APPLIC; Start 04/25/17 at 21:00 TYLER MADDEN Apr 29, 2017 13:19
[2017-04-29] MEDS: ATORVASTATIN 20 MG TAB PO SCH (20:39)
[2017-04-29] MEDS: TAMSULOSIN (SR) 0.4 MG CAP PO SCH (20:39)
[2017-04-30] VITALS (13 sets, daily range): BP systolic 108–153; BP diastolic 55–89; PULSE 75–111; RESP 19–20
[2017-04-30] MEDS: ACCU-CHEK XX SCH (02:00)
[2017-04-30] MEDS: PANTOPRAZOLE 40 MG INJ IV SCH (05:25)
[2017-04-30 07:23] LABS: BASOPHIL # 0.1 10^3/ul (0.0-0.1); EOSINOPHILS # 1.3 10^3/ul (0.0-0.5); EOSINOPHILS % 15.7 % (0.0-7.0); HEMATOCRIT 35.1 % (42.0-52.0); HEMOGLOBIN 10.6 g/dl (14.0-18.0); LYMPHOCYTES # 1.6 10^3/ul (0.8-2.9); LYMPHOCYTES % 19.5 % (15.0-51.0); MEAN CORPUSCULAR HGB CONC 30.2 g/dl (32.0-37.0); MEAN CORPUSCULAR VOLUME 92.6 fl (82.0-101.0); MEAN PLATELET VOLUME 9.9 fl (7.4-10.4); MONOCYTES % 11.8 % (0.0-11.0); NEUTROPHIL # 4.2 10^3/ul (1.6-7.5); NEUTROPHILS % 51.6 % (39.0-77.0); PLATELET COUNT 194 10^3/UL (140-415); RED BLOOD COUNT 3.79 10^6/ul (4.70-6.10); RED CELL DISTRIBUTION WIDTH 17.3 % (11.5-14.5); WHITE BLOOD COUNT 8.2 10^3/ul (4.8-10.8)
[2017-04-30 07:54] LABS: MAGNESIUM 1.9 mg/dl (1.7-2.5); PHOSPHORUS 4.4 mg/dl (2.5-4.9)
[2017-04-30] MEDS: INSULIN ASPART [NOVOLOG] 3 ML PEN SC SCH ×4 (08:00→20:46)
[2017-04-30 08:05] LABS: CALCIUM 7.1 mg/dl (8.4-10.2); CREATININE 5.77 mg/dl (0.61-1.24); POTASSIUM 3.9 mmol/L (3.5-5.1)
[2017-04-30] MEDS: CIPROFLOXACIN 0.3% 3.5 GM OPH OINT RIGHT EYE SCH ×2 (09:00→20:48)
[2017-04-30] MEDS: DONEPEZIL 5 MG TAB PO SCH (09:01)
[2017-04-30] MEDS: LORATADINE 10 MG TAB PO SCH (09:01)
[2017-04-30] MEDS: FOLIC ACID 1 MG TAB PO SCH (09:02)
[2017-04-30] MEDS: MEGESTROL 40 MG TAB PO SCH (09:02)
--- NOTE | 2017-04-30 17:55 | PN ---
Date/Time of Note Date/Time of Note DATE: 04/30/17 TIME: 17:49 Assessment/Plan VTE Prophylaxis VTE Prophylaxis Intervention: SCD's Lines/Catheters [facility]from [facility] Saline Lock Urinary Cath still in place: No Assessment/Plan Assessment/Plan 1. Severe anemia secondary to CKD - EGD did not show acute GI source of bleed, did see nasopharyngeal clot, however very unlikely nose bleed is cause of severe anemia. - Continue monitoring H/H. No need for transfusion at this time 2. ESRD, DD, HD - Most likely lethargic given worsening renal function - Due for dialysis tmrw 3. HTN, controlled 4. Dyslipidemia, on statin 5. BPH 6. Dementia, on aricept 7. Disposition - When patient more alert and closer to baseline with ambulation and self feeding, will d/c home per family request. Has home health currently Subjective 24 Hr Interval Summary Free Text/Dictation Patient lethargic but opening eyes to command and voice. Son at bedside and states prior to admission patient was able to get around with FWW and feed self. No acute overnight events Exam/Review of Systems Vital Signs Vitals Vital Signs Date Time Temp Pulse Resp B/P Pulse Ox O2 Delivery O2 Flow Rate FiO2 04/30/17 16:30 103 04/30/17 16:00 98.3 20 108/55 98 04/30/17 08:30 Nasal Cannula 2.0 Intake and Output 04/29/17 04/29/17 04/30/17 15:00 23:00 07:00 Intake Total 500 ml 120 ml Balance 500 ml 120 ml Exam General: Patient lethargic but opening eyes to voice Head: Normocephalic atraumatic Eyes: EOMI, pupils reactive to light Neck: Supple, nontender, midline Respiratory: Clear to auscultation bilaterally Cardiovascular: regular rate, no obvious murmurs Gastrointestinal: non-tender to palpation, bowel sounds heard. Neurological: Moves all extremities spontaneously, but moderately weak in all extremities Results Result Diagram: 04/30/17 0640 04/30/17 0640 Results 24 hrs Laboratory Tests Test 04/29/17 20:27 04/30/17 06:40 04/30/17 08:57 04/30/17 12:46 Bedside Glucose 92 76 87 White Blood Count 8.2 Red Blood Count 3.79 L Hemoglobin 10.6 L Hematocrit 35.1 L Mean Corpuscular Volume 92.6 Mean Corpuscular Hemoglobin 28.0 L Mean Corpuscular Hemoglobin Concent 30.2 L Red Cell Distribution Width 17.3 H Platelet Count 194 # Mean Platelet Volume 9.9 Neutrophils % 51.6 Lymphocytes % 19.5 Monocytes % 11.8 H Eosinophils % 15.7 H Basophils % 1.0 Nucleated Red Blood Cells % 0.0 Neutrophils # 4.2 Lymphocytes # 1.6 Monocytes # 1.0 H Eosinophils # 1.3 H Basophils # 0.1 Nucleated Red Blood Cells # 0.0 Sodium Level 139 Potassium Level 3.9 Chloride Level 106 Carbon Dioxide Level 30 Anion Gap 7 L Blood Urea Nitrogen 33 H Creatinine 5.77 H Glucose Level 86 Calcium Level 7.1 L Phosphorus Level 4.4 Magnesium Level 1.9 Medications Medications Current Medications Ondansetron HCl (Zofran Inj) 4 mg Q6H PRN IV NAUSEA AND/OR VOMITING; Start at 18:00 Acetaminophen (Tylenol Tab) 650 mg Q6H PRN PO PAIN LEVEL 1-3 OR FEVER; Start at 18:00 Acetaminophen/ Hydrocodone Bitart ([place] (5/325)) 1 tab Q6H PRN PO MODERATE PAIN LEVEL 4-6; Start 04/25/17 at 18:00 Morphine Sulfate (morphine) 2 mg Q4H PRN IV SEVERE PAIN LEVEL 7-10; Start 04/25 at 18:00 Docusate Sodium (Colace) 100 mg Q12H PRN PO CONSTIPATION; Start 04/25/17 at 18: 00 Lorazepam (Ativan) 0.5 mg Q6H PRN IV ANXIETY; Start 04/25/17 at 18:00 Hydralazine HCl (Apresoline) 10 mg Q6H PRN IV ELEVATED BLOOD PRESSURE; Start at 18:00 Nitroglycerin (Nitroglycerin (Sl Tab) 0.4 Mg) 1 tab Q5M PRN SL ANGINA; Start at 18:00 Atorvastatin Calcium (Lipitor) 20 mg HS PO Last administered on 04/29/17 20:39 ; Admin Dose 20 MG; Start 04/25/17 at 21:00 Donepezil HCl (Aricept) 5 mg DAILY PO Last administered on 04/30/17 09:01; Admin Dose 5 MG; Start 04/26/17 at 09:00 Famotidine (Pepcid) 20 mg Q24H PO Last administered on 04/25/17 21:43; Admin Dose 20 MG; Start 04/25/17 at 21:00; Status Future Hold Folic Acid (Folic Acid) 1 mg DAILY PO Last administered on 04/30/17 09:02; Admin Dose 1 MG; Start 04/26/17 at 09:00 Furosemide (Lasix) 20 mg DAILY PO ; Start 04/26/17 at 09:00; Status Future Hold Loratadine (Claritin) 10 mg DAILY PO Last administered on 04/30/17 09:01; Admin Dose 10 MG; Start 04/26/17 at 09:00 Megestrol Acetate (Megace) 40 mg DAILY PO Last administered on 04/30/17 09:02 ; Admin Dose 40 MG; Start 04/26/17 at 09:00 Tamsulosin HCl (Flomax) 0.4 mg HS PO Last administered on 04/29/17 20:39; Admin Dose 0.4 MG; Start 04/25/17 at 21:00 Diagnostic Test (Pha) (Accu-Chek) 1 ea 02 XX Last administered on 04/26/17 02: 10; Admin Dose 1 EA; Start 04/26/17 at 02:00 Miscellaneous Information 1 ea NOTE XX ; Start 04/25/17 at 19:00 Glucose (Glutose) 15 gm Q15M PRN PO DECREASED GLUCOSE; Start 04/25/17 at 19:00 Glucose (Glutose) 22.5 gm Q15M PRN PO DECREASED GLUCOSE; Start 04/25/17 at 19: 00 Dextrose (D50w Syringe) 25 ml Q15M PRN IV DECREASED GLUCOSE Last administered on 04/28/17 08:08; Admin Dose 25 ML; Start 04/25/17 at 19:00 Dextrose (D50w Syringe) 50 ml Q15M PRN IV DECREASED GLUCOSE; Start 04/25/17 at 19:00 Glucagon (Glucagen) 1 mg Q15M PRN IM DECREASED GLUCOSE; Start 04/25/17 at 19:00 Glucose (Glutose) 15 gm Q15M PRN BUCCAL DECREASED GLUCOSE; Start 04/25/17 at 19 :00 Ciprofloxacin HCl (Ciloxan 0.3% Oph Oint) 1 applic BID RIGHT EYE Last administered on 04/29/17t 20:40; Admin Dose 1 APPLIC; Start 04/25/17 at 21:00 Lansoprazole (Prevacid) 30 mg DAILY@06 PO ; Start 05/01/17 at 06:00 Hydroxyzine HCl (Atarax) 25 mg Q8H PRN PO ITCHING; Start 04/30/17 at 16:30 VIV FORD MD Apr 30, 2017 17:55
[2017-04-30] MEDS: TAMSULOSIN (SR) 0.4 MG CAP PO SCH (20:48)
[2017-04-30] MEDS: ATORVASTATIN 20 MG TAB PO SCH (20:48)
[2017-05-01] VITALS (21 sets, daily range): BP systolic 95–171; BP diastolic 40–72; PULSE 62–151; RESP 18–20
[2017-05-01] MEDS: ACCU-CHEK XX SCH (02:00)
[2017-05-01] MEDS: LANSOPRAZOLE 30 MG CAP PO SCH (06:06)
[2017-05-01] MEDS: INSULIN ASPART [NOVOLOG] 3 ML PEN SC SCH ×4 (08:00→21:00)
[2017-05-01] MEDS: DONEPEZIL 5 MG TAB PO SCH (08:53)
[2017-05-01] MEDS: FOLIC ACID 1 MG TAB PO SCH (08:53)
[2017-05-01] MEDS: LORATADINE 10 MG TAB PO SCH (08:53)
[2017-05-01] MEDS: CIPROFLOXACIN 0.3% 3.5 GM OPH OINT RIGHT EYE SCH ×2 (08:53→21:22)
[2017-05-01] MEDS: MEGESTROL 40 MG TAB PO SCH (08:53)
[2017-05-01 11:16] LABS: BASOPHIL # 0.1 10^3/ul (0.0-0.1); BASOPHILS % 0.7 % (0.0-2.0); EOSINOPHILS # 0.9 10^3/ul (0.0-0.5); EOSINOPHILS % 11.8 % (0.0-7.0); HEMATOCRIT 36.5 % (42.0-52.0); HEMOGLOBIN 11.1 g/dl (14.0-18.0); LYMPHOCYTES # 1.3 10^3/ul (0.8-2.9); LYMPHOCYTES % 17.2 % (15.0-51.0); MEAN CORPUSCULAR HEMOGLOBIN 27.5 pg (29.0-33.0); MEAN CORPUSCULAR HGB CONC 30.4 g/dl (32.0-37.0); MEAN CORPUSCULAR VOLUME 90.3 fl (82.0-101.0); MEAN PLATELET VOLUME 9.2 fl (7.4-10.4); MONOCYTE # 0.7 10^3/ul (0.3-0.9); MONOCYTES % 9.3 % (0.0-11.0); NEUTROPHIL # 4.5 10^3/ul (1.6-7.5); NEUTROPHILS % 60.9 % (39.0-77.0); PLATELET COUNT 224 10^3/UL (140-415); RED BLOOD COUNT 4.04 10^6/ul (4.70-6.10); RED CELL DISTRIBUTION WIDTH 17.2 % (11.5-14.5); WHITE BLOOD COUNT 7.5 10^3/ul (4.8-10.8)
[2017-05-01 11:39] LABS: CALCIUM 7.1 mg/dl (8.4-10.2); CREATININE 7.48 mg/dl (0.61-1.24)
--- NOTE | 2017-05-01 16:06 | PN ---
Date/Time of Note Date/Time of Note DATE: 05/01/17 TIME: 15:59 Assessment/Plan VTE Prophylaxis VTE Prophylaxis Intervention: SCD's Lines/Catheters IV Catheter Type (from Nrs): Saline Lock Urinary Cath still in place: No Assessment/Plan Assessment/Plan 1. Severe anemia secondary to CKD - EGD did not show acute GI source of bleed, did see nasopharyngeal clot, however very unlikely nose bleed is cause of severe anemia. - H/H remains stable and will continue to monitor 2. ESRD, DD, HD - Most likely lethargic given worsening renal function - HD today 3. Left thigh pain - No reported injury, trauma, ecchymosis, or erythema - Will order US L thigh to rule out DVT 4. Dyslipidemia, on statin 5. BPH 6. Dementia, on aricept 7. HTN, controlled 8. Disposition - Once stable, will need to reassess with family desire to take him home vs SNF due to decompensated states due to hospitalization Subjective 24 Hr Interval Summary Free Text/Dictation Patient more responsive this am. c/o pain left hip but no reports of fall or injury to area. most likely from immobilization but no signs of trauma or swelling or ecchymosis. No acute overnight events. Patient had runs of PVC but remains asymptomatic. Will continue to monitor Exam/Review of Systems Vital Signs Vitals Vital Signs Date Time Temp Pulse Resp B/P Pulse Ox O2 Delivery O2 Flow Rate FiO2 05/01/17 15:53 98.0 116 18 146/66 98 05/01/17 09:10 Nasal Cannula 2.0 Intake and Output 04/30/17 04/30/17 05/01/17 14:59 22:59 06:59 Intake Total 500 ml 200 ml Balance 500 ml 200 ml Exam General: Patient is laying in bed and answers questions appropriately. sleeping in position Head: Normocephalic atraumatic Eyes: EOMI, pupils reactive to light Neck: Supple, nontender, midline Respiratory: Clear to auscultation bilaterally Cardiovascular: regular rate, no obvious murmurs. tenderness left pectoralis muscle to palpation Gastrointestinal: non-tender to palpation, bowel sounds heard. Neurological: Moves all extremities spontaneously ext: tenderness left upper thigh with palpation. No signs of trauma, ecchymosis , or erythema Results Result Diagram: 05/01/17 1050 05/01/17 1050 Results 24 hrs Laboratory Tests Test 04/30/17 18:22 04/30/17 20:26 05/01/17 08:41 05/01/17 10:50 Bedside Glucose 100 95 109 White Blood Count 7.5 Red Blood Count 4.04 L Hemoglobin 11.1 L Hematocrit 36.5 L Mean Corpuscular Volume 90.3 Mean Corpuscular Hemoglobin 27.5 L Mean Corpuscular Hemoglobin Concent 30.4 L Red Cell Distribution Width 17.2 H Platelet Count 224 Mean Platelet Volume 9.2 Neutrophils % 60.9 Lymphocytes % 17.2 Monocytes % 9.3 Eosinophils % 11.8 H Basophils % 0.7 Nucleated Red Blood Cells % 0.0 Neutrophils # 4.5 Lymphocytes # 1.3 Monocytes # 0.7 Eosinophils # 0.9 H Basophils # 0.1 Nucleated Red Blood Cells # 0.0 Sodium Level 139 Potassium Level 4.0 Chloride Level 107 Carbon Dioxide Level 27 Anion Gap 9 Blood Urea Nitrogen 51 H Creatinine 7.48 H Glucose Level 170 Calcium Level 7.1 L Test 05/01/17 12:33 Bedside Glucose 180 Medications Medications Current Medications Ondansetron HCl (Zofran Inj) 4 mg Q6H PRN IV NAUSEA AND/OR VOMITING; Start at 18:00 Acetaminophen (Tylenol Tab) 650 mg Q6H PRN PO PAIN LEVEL 1-3 OR FEVER; Start at 18:00 Acetaminophen/ Hydrocodone Bitart ([place] (5/325)) 1 tab Q6H PRN PO MODERATE PAIN LEVEL 4-6; Start 04/25/17 at 18:00 Morphine Sulfate (morphine) 2 mg Q4H PRN IV SEVERE PAIN LEVEL 7-10; Start 04/25 at 18:00 Docusate Sodium (Colace) 100 mg Q12H PRN PO CONSTIPATION; Start 04/25/17 at 18: 00 Lorazepam (Ativan) 0.5 mg Q6H PRN IV ANXIETY; Start 04/25/17 at 18:00 Hydralazine HCl (Apresoline) 10 mg Q6H PRN IV ELEVATED BLOOD PRESSURE; Start at 18:00 Nitroglycerin (Nitroglycerin (Sl Tab) 0.4 Mg) 1 tab Q5M PRN SL ANGINA; Start at 18:00 Atorvastatin Calcium (Lipitor) 20 mg HS PO Last administered on 04/30/17 20:48 ; Admin Dose 20 MG; Start 04/25/17 at 21:00 Donepezil HCl (Aricept) 5 mg DAILY PO Last administered on 05/01/17 08:53; Admin Dose 5 MG; Start 04/26/17 at 09:00 Famotidine (Pepcid) 20 mg Q24H PO Last administered on 04/25/17 21:43; Admin Dose 20 MG; Start 04/25/17 at 21:00; Status Future Hold Folic Acid (Folic Acid) 1 mg DAILY PO Last administered on 05/01/17 08:53; Admin Dose 1 MG; Start 04/26/17 at 09:00 Furosemide (Lasix) 20 mg DAILY PO ; Start 04/26/17 at 09:00; Status Future Hold Loratadine (Claritin) 10 mg DAILY PO Last administered on 05/01/17 08:53; Admin Dose 10 MG; Start 04/26/17 at 09:00 Megestrol Acetate (Megace) 40 mg DAILY PO Last administered on 05/01/17 08:53 ; Admin Dose 40 MG; Start 04/26/17 at 09:00 Tamsulosin HCl (Flomax) 0.4 mg HS PO Last administered on 04/30/17 20:48; Admin Dose 0.4 MG; Start 04/25/17 at 21:00 Diagnostic Test (Pha) (Accu-Chek) 1 ea 02 XX Last administered on 04/26/17 02: 10; Admin Dose 1 EA; Start 04/26/17 at 02:00 Miscellaneous Information 1 ea NOTE XX ; Start 04/25/17 at 19:00 Glucose (Glutose) 15 gm Q15M PRN PO DECREASED GLUCOSE; Start 04/25/17 at 19:00 Glucose (Glutose) 22.5 gm Q15M PRN PO DECREASED GLUCOSE; Start 04/25/17 at 19: 00 Dextrose (D50w Syringe) 25 ml Q15M PRN IV DECREASED GLUCOSE Last administered on 04/28/17 08:08; Admin Dose 25 ML; Start 04/25/17 at 19:00 Dextrose (D50w Syringe) 50 ml Q15M PRN IV DECREASED GLUCOSE; Start 04/25/17 at 19:00 Glucagon (Glucagen) 1 mg Q15M PRN IM DECREASED GLUCOSE; Start 04/25/17 at 19:00 Glucose (Glutose) 15 gm Q15M PRN BUCCAL DECREASED GLUCOSE; Start 04/25/17 at 19 :00 Ciprofloxacin HCl (Ciloxan 0.3% Oph Oint) 1 applic BID RIGHT EYE Last administered on 05/01/17 08:53; Admin Dose 1 APPLIC; Start 04/25/17 at 21:00 Lansoprazole (Prevacid) 30 mg DAILY@06 PO Last administered on 05/01/17 06:06 ; Admin Dose 30 MG; Start 05/01/17 at 06:00 Hydroxyzine HCl (Atarax) 25 mg Q8H PRN PO ITCHING; Start 04/30/17 at 16:30 VIV FORD MD May 01, 2017 16:06
--- NOTE | 2017-05-01 19:41 | CONS ---
Date/Time of Note Date/Time of Note DATE: 05/01/17 TIME: 19:39 Assessment/Plan Assessment/Plan Chief Complaint/Hosp Course - [facility] - Severe anemia - Severe Malnutrition - Anemia - CAD/CHF PLAN: - EGD noted - Post Blood Transfusion with stable H/H - Bedside HD - Encourage PO Intake - Follow up with H/H Problems: Consultation Date/Type/Reason Admit Date/Time Apr 25, 2017 at 16:42 Initial Consult Date 04/26/17 Type of Consultation: NEPHROLOGY Reason for Consultation ESRD On hemodialysis Referring Provider: CARINA LINCOLN 24 HR Interval Summary Subjective hx not possible: pt non-verbal Constitutional: no complaints Exam/Review of Systems Vital Signs Vitals Vital Signs Date Time Temp Pulse Resp B/P Pulse Ox O2 Delivery O2 Flow Rate FiO2 05/01/17 19:00 88 15 05/01/17 15:53 98.0 146/66 98 05/01/17 09:10 Nasal Cannula 2.0 Intake and Output 04/30/17 04/30/17 05/01/17 15:00 23:00 07:00 Intake Total 500 ml 200 ml Balance 500 ml 200 ml Exam Constitutional: non-verbal Head: normocephalic Respiratory: crackles/rales Cardiovascular: regular rate and rhythm, systolic murmur Gastrointestinal: soft Results Result Diagram: 05/01/17 1050 05/01/17 1050 Results 24 hrs Laboratory Tests Test 04/30/17 20:26 05/01/17 08:41 05/01/17 10:50 05/01/17 12:33 Bedside Glucose 95 109 180 White Blood Count 7.5 Red Blood Count 4.04 L Hemoglobin 11.1 L Hematocrit 36.5 L Mean Corpuscular Volume 90.3 Mean Corpuscular Hemoglobin 27.5 L Mean Corpuscular Hemoglobin Concent 30.4 L Red Cell Distribution Width 17.2 H Platelet Count 224 Mean Platelet Volume 9.2 Neutrophils % 60.9 Lymphocytes % 17.2 Monocytes % 9.3 Eosinophils % 11.8 H Basophils % 0.7 Nucleated Red Blood Cells % 0.0 Neutrophils # 4.5 Lymphocytes # 1.3 Monocytes # 0.7 Eosinophils # 0.9 H Basophils # 0.1 Nucleated Red Blood Cells # 0.0 Sodium Level 139 Potassium Level 4.0 Chloride Level 107 Carbon Dioxide Level 27 Anion Gap 9 Blood Urea Nitrogen 51 H Creatinine 7.48 H Glucose Level 170 Calcium Level 7.1 L Test 05/01/17 17:22 Bedside Glucose 132 Medications Medications Current Medications Ondansetron HCl (Zofran Inj) 4 mg Q6H PRN IV NAUSEA AND/OR VOMITING; Start at 18:00 Acetaminophen (Tylenol Tab) 650 mg Q6H PRN PO PAIN LEVEL 1-3 OR FEVER; Start at 18:00 Acetaminophen/ Hydrocodone Bitart ([place] (5/325)) 1 tab Q6H PRN PO MODERATE PAIN LEVEL 4-6; Start 04/25/17 at 18:00 Morphine Sulfate (morphine) 2 mg Q4H PRN IV SEVERE PAIN LEVEL 7-10; Start 04/25 at 18:00 Docusate Sodium (Colace) 100 mg Q12H PRN PO CONSTIPATION; Start 04/25/17 at 18: 00 Lorazepam (Ativan) 0.5 mg Q6H PRN IV ANXIETY; Start 04/25/17 at 18:00 Hydralazine HCl (Apresoline) 10 mg Q6H PRN IV ELEVATED BLOOD PRESSURE; Start at 18:00 Nitroglycerin (Nitroglycerin (Sl Tab) 0.4 Mg) 1 tab Q5M PRN SL ANGINA; Start at 18:00 Atorvastatin Calcium (Lipitor) 20 mg HS PO Last administered on 04/30/17 20:48 ; Admin Dose 20 MG; Start 04/25/17 at 21:00 Donepezil HCl (Aricept) 5 mg DAILY PO Last administered on 05/01/17 08:53; Admin Dose 5 MG; Start 04/26/17 at 09:00 Famotidine (Pepcid) 20 mg Q24H PO Last administered on 04/25/17 21:43; Admin Dose 20 MG; Start 04/25/17 at 21:00; Status Future Hold Folic Acid (Folic Acid) 1 mg DAILY PO Last administered on 05/01/17 08:53; Admin Dose 1 MG; Start 04/26/17 at 09:00 Furosemide (Lasix) 20 mg DAILY PO ; Start 04/26/17 at 09:00; Status Future Hold Loratadine (Claritin) 10 mg DAILY PO Last administered on 05/01/17 08:53; Admin Dose 10 MG; Start 04/26/17 at 09:00 Megestrol Acetate (Megace) 40 mg DAILY PO Last administered on 05/01/17 08:53 ; Admin Dose 40 MG; Start 04/26/17 at 09:00 Tamsulosin HCl (Flomax) 0.4 mg HS PO Last administered on 04/30/17 20:48; Admin Dose 0.4 MG; Start 04/25/17 at 21:00 Diagnostic Test (Pha) (Accu-Chek) 1 ea 02 XX Last administered on 04/26/17 02: 10; Admin Dose 1 EA; Start 04/26/17 at 02:00 Miscellaneous Information 1 ea NOTE XX ; Start 04/25/17 at 19:00 Glucose (Glutose) 15 gm Q15M PRN PO DECREASED GLUCOSE; Start 04/25/17 at 19:00 Glucose (Glutose) 22.5 gm Q15M PRN PO DECREASED GLUCOSE; Start 04/25/17 at 19: 00 Dextrose (D50w Syringe) 25 ml Q15M PRN IV DECREASED GLUCOSE Last administered on 04/28/17 08:08; Admin Dose 25 ML; Start 04/25/17 at 19:00 Dextrose (D50w Syringe) 50 ml Q15M PRN IV DECREASED GLUCOSE; Start 04/25/17 at 19:00 Glucagon (Glucagen) 1 mg Q15M PRN IM DECREASED GLUCOSE; Start 04/25/17 at 19:00 Glucose (Glutose) 15 gm Q15M PRN BUCCAL DECREASED GLUCOSE; Start 04/25/17 at 19 :00 Ciprofloxacin HCl (Ciloxan 0.3% Oph Oint) 1 applic BID RIGHT EYE Last administered on 05/01/17 08:53; Admin Dose 1 APPLIC; Start 04/25/17 at 21:00 Lansoprazole (Prevacid) 30 mg DAILY@06 PO Last administered on 05/01/17 06:06 ; Admin Dose 30 MG; Start 05/01/17 at 06:00 Hydroxyzine HCl (Atarax) 25 mg Q8H PRN PO ITCHING; Start 04/30/17 at 16:30 DENVER ANTONY MD May 01, 2017 19:40
[2017-05-01] MEDS: hydrOXYzine HCL 10 MG TAB PO PRN (21:11)
[2017-05-01] MEDS: TAMSULOSIN (SR) 0.4 MG CAP PO SCH (21:12)
[2017-05-01] MEDS: ATORVASTATIN 20 MG TAB PO SCH (21:12)
[2017-05-02] VITALS (11 sets, daily range): BP systolic 97–148; BP diastolic 52–65; PULSE 106–122; RESP 18–20
[2017-05-02] MEDS: ACCU-CHEK XX SCH (02:00)
--- NOTE | 2017-05-02 04:17 | RADRPT ---
PROCEDURE: Ultrasound examination of the left lower extremity with Doppler. CLINICAL INDICATION: Left leg pain and swelling. TECHNIQUE: Multiple sonographic images of the left lower extremity veins were performed with cortez scale and color Doppler. COMPARISON: None. FINDINGS: The left common femoral, superficial femoral and popliteal veins demonstrate normal color flow, wave forms, compression and response to augmentation. There is no evidence of deep venous thrombosis. IMPRESSION: No evidence of deep venous thrombosis within the left lower extremity. .Mk Celestin MD, MD Date Time Electronically viewed and signed by .Mk Celestin MD, on 05/02/2017 04:17 .T/
[2017-05-02] MEDS: LANSOPRAZOLE 30 MG CAP PO SCH (05:47)
[2017-05-02 07:53] LABS: BASOPHIL # 0.1 10^3/ul (0.0-0.1); BASOPHILS % 0.7 % (0.0-2.0); EOSINOPHILS # 0.8 10^3/ul (0.0-0.5); EOSINOPHILS % 9.5 % (0.0-7.0); HEMATOCRIT 35.1 % (42.0-52.0); HEMOGLOBIN 10.6 g/dl (14.0-18.0); LYMPHOCYTES # 1.7 10^3/ul (0.8-2.9); LYMPHOCYTES % 20.7 % (15.0-51.0); MEAN CORPUSCULAR HEMOGLOBIN 27.4 pg (29.0-33.0); MEAN CORPUSCULAR HGB CONC 30.2 g/dl (32.0-37.0); MEAN CORPUSCULAR VOLUME 90.7 fl (82.0-101.0); MEAN PLATELET VOLUME 9.7 fl (7.4-10.4); MONOCYTE # 0.9 10^3/ul (0.3-0.9); MONOCYTES % 10.5 % (0.0-11.0); NEUTROPHIL # 4.8 10^3/ul (1.6-7.5); NEUTROPHILS % 58.2 % (39.0-77.0); PLATELET COUNT 187 10^3/UL (140-415); RED BLOOD COUNT 3.87 10^6/ul (4.70-6.10); RED CELL DISTRIBUTION WIDTH 17.2 % (11.5-14.5); WHITE BLOOD COUNT 8.3 10^3/ul (4.8-10.8)
[2017-05-02] MEDS: INSULIN ASPART [NOVOLOG] 3 ML PEN SC SCH ×4 (08:00→20:34)
[2017-05-02 08:23] LABS: CREATININE 5.37 mg/dl (0.61-1.24); POTASSIUM 3.6 mmol/L (3.5-5.1)
[2017-05-02] MEDS: DONEPEZIL 5 MG TAB PO SCH (09:21)
[2017-05-02] MEDS: CIPROFLOXACIN 0.3% 3.5 GM OPH OINT RIGHT EYE SCH ×2 (09:21→20:34)
[2017-05-02] MEDS: MEGESTROL 40 MG TAB PO SCH (09:21)
[2017-05-02] MEDS: LORATADINE 10 MG TAB PO SCH (09:21)
[2017-05-02] MEDS: FOLIC ACID 1 MG TAB PO SCH (09:21)
--- NOTE | 2017-05-02 14:35 | PN ---
Date/Time of Note Date/Time of Note DATE: 05/02/17 TIME: 14:19 Assessment/Plan VTE Prophylaxis VTE Prophylaxis Intervention: contraindicated, SCD's Lines/Catheters IV Catheter Type (from Nrsg): Central Line Central line still needed: Yes (access for HD) Urinary Cath still in place: No Assessment/Plan Assessment/Plan 1. Severe anemia secondary to CKD - EGD did not show acute GI source of bleed, did see nasopharyngeal clot, however very unlikely nose bleed is cause of severe anemia. - H/H remains stable and will continue to monitor 2. ESRD, DD, HD - Most likely lethargic given worsening renal function - HD tmrw 3. Left thigh pain - No reported injury, trauma, ecchymosis, or erythema - Will order US L thigh to rule out DVT 4. Dyslipidemia, on statin 5. BPH 6. Dementia, on aricept 7. HTN, controlled 8. Disposition - HD tmrw and if remains stable will d/c home. Arranging for HH and PT. Also requesting Deya lift. Subjective 24 Hr Interval Summary Free Text/Dictation Patient is more awake and alert this am. Still gripping his left leg and grimacing with pain. Per son is at his baseline and still planning to take patient home. Patient was slightly tachy this am but has since resolved. Exam/Review of Systems Vital Signs Vitals Vital Signs Date Time Temp Pulse Resp B/P Pulse Ox O2 Delivery O2 Flow Rate FiO2 05/02/17 14:15 122 05/02/17 11:51 99.5 18 148/65 97 05/01/17 09:10 Nasal Cannula 2.0 Intake and Output 05/01/17 05/01/17 05/02/17 15:00 23:00 07:00 Intake Total 980 ml 500 ml Output Total 1000 ml 500 ml Balance -20 ml 0 ml Exam General: Awake but not verbalizing. Grimacing to pain when left calf touched but no signs of trauma Head: Normocephalic atraumatic Eyes: EOMI, pupils reactive to light Neck: Supple Respiratory: Clear to auscultation bilaterally Cardiovascular: regular rate, no obvious murmurs. tenderness left pectoralis muscle to palpation Gastrointestinal: non-tender to palpation, bowel sounds heard. Neurological: Moves all extremities spontaneously ext: tenderness left upper thigh with palpation. No signs of trauma, ecchymosis , or erythema Results Result Diagram: 05/02/17 0652 05/02/17 0652 Results 24 hrs Laboratory Tests Test 05/01/17 17:22 05/01/17 21:22 05/02/17 06:52 05/02/17 08:17 Bedside Glucose 132 155 107 White Blood Count 8.3 Red Blood Count 3.87 L Hemoglobin 10.6 L Hematocrit 35.1 L Mean Corpuscular Volume 90.7 Mean Corpuscular Hemoglobin 27.4 L Mean Corpuscular Hemoglobin Concent 30.2 L Red Cell Distribution Width 17.2 H Platelet Count 187 Mean Platelet Volume 9.7 Neutrophils % 58.2 Lymphocytes % 20.7 Monocytes % 10.5 Eosinophils % 9.5 H Basophils % 0.7 Nucleated Red Blood Cells % 0.0 Neutrophils # 4.8 Lymphocytes # 1.7 Monocytes # 0.9 Eosinophils # 0.8 H Basophils # 0.1 Nucleated Red Blood Cells # 0.0 Sodium Level 140 Potassium Level 3.6 Chloride Level 104 Carbon Dioxide Level 32 H Anion Gap 8 Blood Urea Nitrogen 31 #H Creatinine 5.37 #H Glucose Level 104 # Calcium Level 7.0 L Magnesium Level 1.7 Test 05/02/17 12:21 Bedside Glucose 126 Medications Medications Current Medications Ondansetron HCl (Zofran Inj) 4 mg Q6H PRN IV NAUSEA AND/OR VOMITING; Start at 18:00 Acetaminophen (Tylenol Tab) 650 mg Q6H PRN PO PAIN LEVEL 1-3 OR FEVER; Start at 18:00 Acetaminophen/ Hydrocodone Bitart ([place] (5/325)) 1 tab Q6H PRN PO MODERATE PAIN LEVEL 4-6; Start 04/25/17 at 18:00 Morphine Sulfate (morphine) 2 mg Q4H PRN IV SEVERE PAIN LEVEL 7-10; Start 04/25 at 18:00 Docusate Sodium (Colace) 100 mg Q12H PRN PO CONSTIPATION; Start 04/25/17 at 18: 00 Lorazepam (Ativan) 0.5 mg Q6H PRN IV ANXIETY; Start 04/25/17 at 18:00 Hydralazine HCl (Apresoline) 10 mg Q6H PRN IV ELEVATED BLOOD PRESSURE; Start at 18:00 Nitroglycerin (Nitroglycerin (Sl Tab) 0.4 Mg) 1 tab Q5M PRN SL ANGINA; Start at 18:00 Atorvastatin Calcium (Lipitor) 20 mg HS PO Last administered on 05/01/17 21:12 ; Admin Dose 20 MG; Start 04/25/17 at 21:00 Donepezil HCl (Aricept) 5 mg DAILY PO Last administered on 05/02/17 09:21; Admin Dose 5 MG; Start 04/26/17 at 09:00 Famotidine (Pepcid) 20 mg Q24H PO Last administered on 04/25/17 21:43; Admin Dose 20 MG; Start 04/25/17 at 21:00; Status Future Hold Folic Acid (Folic Acid) 1 mg DAILY PO Last administered on 05/02/17 09:21; Admin Dose 1 MG; Start 04/26/17 at 09:00 Furosemide (Lasix) 20 mg DAILY PO ; Start 04/26/17 at 09:00; Status Future Hold Loratadine (Claritin) 10 mg DAILY PO Last administered on 05/02/17 09:21; Admin Dose 10 MG; Start 04/26/17 at 09:00 Megestrol Acetate (Megace) 40 mg DAILY PO Last administered on 05/02/17 09:21 ; Admin Dose 40 MG; Start 04/26/17 at 09:00 Tamsulosin HCl (Flomax) 0.4 mg HS PO Last administered on 05/01/17 21:12; Admin Dose 0.4 MG; Start 04/25/17 at 21:00 Diagnostic Test (Pha) (Accu-Chek) 1 ea 02 XX Last administered on 04/26/17 02: 10; Admin Dose 1 EA; Start 04/26/17 at 02:00 Miscellaneous Information 1 ea NOTE XX ; Start 04/25/17 at 19:00 Glucose (Glutose) 15 gm Q15M PRN PO DECREASED GLUCOSE; Start 04/25/17 at 19:00 Glucose (Glutose) 22.5 gm Q15M PRN PO DECREASED GLUCOSE; Start 04/25/17 at 19: 00 Dextrose (D50w Syringe) 25 ml Q15M PRN IV DECREASED GLUCOSE Last administered on 04/28/17 08:08; Admin Dose 25 ML; Start 04/25/17 at 19:00 Dextrose (D50w Syringe) 50 ml Q15M PRN IV DECREASED GLUCOSE; Start 04/25/17 at 19:00 Glucagon (Glucagen) 1 mg Q15M PRN IM DECREASED GLUCOSE; Start 04/25/17 at 19:00 Glucose (Glutose) 15 gm Q15M PRN BUCCAL DECREASED GLUCOSE; Start 04/25/17 at 19 :00 Ciprofloxacin HCl (Ciloxan 0.3% Oph Oint) 1 applic BID RIGHT EYE Last administered on 05/02/17 09:21; Admin Dose 1 APPLIC; Start 04/25/17 at 21:00 Lansoprazole (Prevacid) 30 mg DAILY@06 PO Last administered on 05/02/17 05:47 ; Admin Dose 30 MG; Start 05/01/17 at 06:00 Hydroxyzine HCl (Atarax) 25 mg Q8H PRN PO ITCHING Last administered on 21:11; Admin Dose 25 MG; Start 04/30/17 at 16:30 VIV FORD MD May 02, 2017 14:32
[2017-05-02] MEDS ORDERED: [UNRECOGNIZED DRUG - SUPPLY] (14:41)
[2017-05-02] MEDS: TAMSULOSIN (SR) 0.4 MG CAP PO SCH (20:33)
[2017-05-02] MEDS: ATORVASTATIN 20 MG TAB PO SCH (20:33)
[2017-05-03] VITALS (19 sets, daily range): BP systolic 90–143; BP diastolic 51–62; PULSE 85–123; RESP 16–19
[2017-05-03] MEDS: ACCU-CHEK XX SCH (02:00)
[2017-05-03] MEDS: LANSOPRAZOLE 30 MG CAP PO SCH (05:28)
[2017-05-03 07:18] LABS: BASOPHIL # 0.1 10^3/ul (0.0-0.1); BASOPHILS % 1.1 % (0.0-2.0); EOSINOPHILS # 0.7 10^3/ul (0.0-0.5); EOSINOPHILS % 9.4 % (0.0-7.0); HEMATOCRIT 29.6 % (42.0-52.0); HEMOGLOBIN 8.7 g/dl (14.0-18.0); LYMPHOCYTES # 1.3 10^3/ul (0.8-2.9); LYMPHOCYTES % 16.7 % (15.0-51.0); MEAN CORPUSCULAR HEMOGLOBIN 26.6 pg (29.0-33.0); MEAN CORPUSCULAR HGB CONC 29.4 g/dl (32.0-37.0); MEAN CORPUSCULAR VOLUME 90.5 fl (82.0-101.0); MEAN PLATELET VOLUME 9.8 fl (7.4-10.4); MONOCYTE # 0.9 10^3/ul (0.3-0.9); MONOCYTES % 11.8 % (0.0-11.0); NEUTROPHIL # 4.8 10^3/ul (1.6-7.5); NEUTROPHILS % 60.6 % (39.0-77.0); PLATELET COUNT 186 10^3/UL (140-415); RED BLOOD COUNT 3.27 10^6/ul (4.70-6.10); RED CELL DISTRIBUTION WIDTH 17.2 % (11.5-14.5); WHITE BLOOD COUNT 7.9 10^3/ul (4.8-10.8)
[2017-05-03 07:59] LABS: CALCIUM 6.9 mg/dl (8.4-10.2); CREATININE 6.46 mg/dl (0.61-1.24); POTASSIUM 3.7 mmol/L (3.5-5.1)
[2017-05-03] MEDS: INSULIN ASPART [NOVOLOG] 3 ML PEN SC SCH ×4 (08:00→21:00)
[2017-05-03] MEDS: MEGESTROL 40 MG TAB PO SCH (10:29)
[2017-05-03] MEDS: LORATADINE 10 MG TAB PO SCH (10:29)
[2017-05-03] MEDS: FOLIC ACID 1 MG TAB PO SCH (10:29)
[2017-05-03] MEDS: DONEPEZIL 5 MG TAB PO SCH (10:31)
[2017-05-03] MEDS: CIPROFLOXACIN 0.3% 3.5 GM OPH OINT RIGHT EYE SCH ×2 (13:44→23:55)
--- NOTE | 2017-05-03 16:49 | PN ---
Date/Time of Note Date/Time of Note DATE: 05/03/17 TIME: 16:46 Assessment/Plan VTE Prophylaxis VTE Prophylaxis Intervention: SCD's Lines/Catheters IV Catheter Type (from Nrsg): PERMACATH Urinary Cath still in place: No Assessment/Plan Assessment/Plan 1. Severe anemia secondary to CKD - EGD did not show acute GI source of bleed, did see nasopharyngeal clot, however very unlikely nose bleed is cause of severe anemia. - H/H remains stable and will continue to monitor 2. ESRD, DD, HD - HD today 3. Left thigh pain - No reported injury, trauma, ecchymosis, or erythema - US LLE negative for DVT - doubt any fractures but will order Xray Hip to assess 4. Dyslipidemia, on statin 5. BPH 6. Dementia, on aricept 7. HTN, controlled 8. Disposition - Still experiencing left leg pain that is preventing him from moving. Will need to workup before d/c damián Subjective 24 Hr Interval Summary Free Text/Dictation Patient resting comfortably while undergoing HD. Still experiencing left hip pain with palpation and movement. No overnight events. Exam/Review of Systems Vital Signs Vitals Vital Signs Date Time Temp Pulse Resp B/P Pulse Ox O2 Delivery O2 Flow Rate FiO2 05/03/17 16:17 99.3 53 19 143/62 99 05/03/17 01:30 2.0 05/01/17 09:10 Nasal Cannula Intake and Output 05/02/17 05/02/17 05/03/17 15:00 23:00 07:00 Intake Total 420 ml 300 ml Balance 420 ml 300 ml Exam General: Awake but not verbalizing. Grimacing to pain when left leg touched but no signs of trauma Head: Normocephalic atraumatic Eyes: EOMI, pupils reactive to light Neck: Supple Respiratory: Clear to auscultation bilaterally Cardiovascular: regular rate, no obvious murmurs. Gastrointestinal: non-tender to palpation, bowel sounds heard. Neurological: Moves all extremities spontaneously ext: tenderness left upper thigh with palpation. No signs of trauma, ecchymosis , or erythema Results Result Diagram: 05/03/17 0657 05/03/17 0657 Results 24 hrs Laboratory Tests Test 05/02/17 17:11 05/02/17 20:15 05/03/17 06:57 05/03/17 08:23 Bedside Glucose 133 113 77 White Blood Count 7.9 Red Blood Count 3.27 L Hemoglobin 8.7 L Hematocrit 29.6 L Mean Corpuscular Volume 90.5 Mean Corpuscular Hemoglobin 26.6 L Mean Corpuscular Hemoglobin Concent 29.4 L Red Cell Distribution Width 17.2 H Platelet Count 186 Mean Platelet Volume 9.8 Neutrophils % 60.6 Lymphocytes % 16.7 Monocytes % 11.8 H Eosinophils % 9.4 H Basophils % 1.1 Nucleated Red Blood Cells % 0.0 Neutrophils # 4.8 Lymphocytes # 1.3 Monocytes # 0.9 Eosinophils # 0.7 H Basophils # 0.1 Nucleated Red Blood Cells # 0.0 Sodium Level 137 Potassium Level 3.7 Chloride Level 105 Carbon Dioxide Level 29 Anion Gap 7 L Blood Urea Nitrogen 42 #H Creatinine 6.46 H Glucose Level 81 Calcium Level 6.9 L Test 05/03/17 11:47 Bedside Glucose 97 Medications Medications Current Medications Ondansetron HCl (Zofran Inj) 4 mg Q6H PRN IV NAUSEA AND/OR VOMITING; Start at 18:00 Acetaminophen (Tylenol Tab) 650 mg Q6H PRN PO PAIN LEVEL 1-3 OR FEVER; Start at 18:00 Acetaminophen/ Hydrocodone Bitart ([place] (5/325)) 1 tab Q6H PRN PO MODERATE PAIN LEVEL 4-6; Start 04/25/17 at 18:00 Morphine Sulfate (morphine) 2 mg Q4H PRN IV SEVERE PAIN LEVEL 7-10; Start 04/25 at 18:00 Docusate Sodium (Colace) 100 mg Q12H PRN PO CONSTIPATION; Start 04/25/17 at 18: 00 Lorazepam (Ativan) 0.5 mg Q6H PRN IV ANXIETY; Start 04/25/17 at 18:00 Hydralazine HCl (Apresoline) 10 mg Q6H PRN IV ELEVATED BLOOD PRESSURE; Start at 18:00 Nitroglycerin (Nitroglycerin (Sl Tab) 0.4 Mg) 1 tab Q5M PRN SL ANGINA; Start at 18:00 Atorvastatin Calcium (Lipitor) 20 mg HS PO Last administered on 05/02/17t 20:33 ; Admin Dose 20 MG; Start 04/25/17 at 21:00 Donepezil HCl (Aricept) 5 mg DAILY PO Last administered on 05/03/17 10:31; Admin Dose 5 MG; Start 04/26/17 at 09:00 Famotidine (Pepcid) 20 mg Q24H PO Last administered on 04/25/17 21:43; Admin Dose 20 MG; Start 04/25/17 at 21:00; Status Future Hold Folic Acid (Folic Acid) 1 mg DAILY PO Last administered on 05/03/17 10:29; Admin Dose 1 MG; Start 04/26/17 at 09:00 Furosemide (Lasix) 20 mg DAILY PO ; Start 04/26/17 at 09:00; Status Future Hold Loratadine (Claritin) 10 mg DAILY PO Last administered on 05/03/17 10:29; Admin Dose 10 MG; Start 04/26/17 at 09:00 Megestrol Acetate (Megace) 40 mg DAILY PO Last administered on 05/03/17 10:29 ; Admin Dose 40 MG; Start 04/26/17 at 09:00 Tamsulosin HCl (Flomax) 0.4 mg HS PO Last administered on 05/02/17 20:33; Admin Dose 0.4 MG; Start 04/25/17 at 21:00 Diagnostic Test (Pha) (Accu-Chek) 1 ea 02 XX Last administered on 04/26/17 02: 10; Admin Dose 1 EA; Start 04/26/17 at 02:00 Miscellaneous Information 1 ea NOTE XX ; Start 04/25/17 at 19:00 Glucose (Glutose) 15 gm Q15M PRN PO DECREASED GLUCOSE; Start 04/25/17 at 19:00 Glucose (Glutose) 22.5 gm Q15M PRN PO DECREASED GLUCOSE; Start 04/25/17 at 19: 00 Dextrose (D50w Syringe) 25 ml Q15M PRN IV DECREASED GLUCOSE Last administered on 04/28/17 08:08; Admin Dose 25 ML; Start 04/25/17 at 19:00 Dextrose (D50w Syringe) 50 ml Q15M PRN IV DECREASED GLUCOSE; Start 04/25/17 at 19:00 Glucagon (Glucagen) 1 mg Q15M PRN IM DECREASED GLUCOSE; Start 04/25/17 at 19:00 Glucose (Glutose) 15 gm Q15M PRN BUCCAL DECREASED GLUCOSE; Start 04/25/17 at 19 :00 Ciprofloxacin HCl (Ciloxan 0.3% Oph Oint) 1 applic BID RIGHT EYE Last administered on 05/03/17 13:44; Admin Dose 1 APPLIC; Start 04/25/17 at 21:00 Lansoprazole (Prevacid) 30 mg DAILY@06 PO Last administered on 05/03/17 05:28 ; Admin Dose 30 MG; Start 05/01/17 at 06:00 Hydroxyzine HCl (Atarax) 25 mg Q8H PRN PO ITCHING Last administered on 21:11; Admin Dose 25 MG; Start 04/30/17 at 16:30 VIV FORD MD May 03, 2017 16:48
--- NOTE | 2017-05-03 18:03 | RADRPT ---
PROCEDURE: XR Left Hip. CLINICAL INDICATION: Left hip pain. TECHNIQUE: Two views. Frontal and lateral. COMPARISON: No prior studies are available for comparison. FINDINGS: There is no fracture or dislocation. Vascular calcifications are present consistent with atherosclerosis. Articular surfaces are intact. There is no lytic or blastic lesion. There is no radiopaque foreign body. IMPRESSION: 1. Atherosclerosis. 2. Otherwise normal images of the left hip. RPTAT: QQ .Luis Cruz MD, MD Date Time Electronically viewed and signed by .Luis Cruz MD, on 05/03/2017 18:03 .R/
[2017-05-03] MEDS: TAMSULOSIN (SR) 0.4 MG CAP PO SCH (20:56)
[2017-05-03] MEDS: ATORVASTATIN 20 MG TAB PO SCH (20:56)
[2017-05-04] VITALS (11 sets, daily range): BP systolic 108–149; BP diastolic 58–90; PULSE 103–109; RESP 16–18
[2017-05-04] MEDS: ACCU-CHEK XX SCH (02:00)
[2017-05-04 06:01] LABS: BASOPHIL # 0.1 10^3/ul (0.0-0.1); BASOPHILS % 0.9 % (0.0-2.0); EOSINOPHILS % 12.2 % (0.0-7.0); HEMATOCRIT 29.8 % (42.0-52.0); HEMOGLOBIN 9.1 g/dl (14.0-18.0); LYMPHOCYTES # 1.3 10^3/ul (0.8-2.9); LYMPHOCYTES % 15.4 % (15.0-51.0); MEAN CORPUSCULAR HEMOGLOBIN 27.5 pg (29.0-33.0); MEAN CORPUSCULAR HGB CONC 30.5 g/dl (32.0-37.0); MONOCYTE # 0.9 10^3/ul (0.3-0.9); MONOCYTES % 10.1 % (0.0-11.0); NEUTROPHIL # 5.1 10^3/ul (1.6-7.5); PLATELET COUNT 189 10^3/UL (140-415); RED BLOOD COUNT 3.31 10^6/ul (4.70-6.10); RED CELL DISTRIBUTION WIDTH 17.1 % (11.5-14.5); WHITE BLOOD COUNT 8.4 10^3/ul (4.8-10.8)
[2017-05-04] MEDS: LANSOPRAZOLE 30 MG CAP PO SCH (06:27)
[2017-05-04 06:29] LABS: ALBUMIN 1.6 g/dl (3.3-4.9); CALCIUM 6.7 mg/dl (8.4-10.2); CREATININE 4.54 mg/dl (0.61-1.24); MAGNESIUM 1.8 mg/dl (1.7-2.5); PHOSPHORUS 3.7 mg/dl (2.5-4.9); POTASSIUM 3.9 mmol/L (3.5-5.1)
[2017-05-04] MEDS: INSULIN ASPART [NOVOLOG] 3 ML PEN SC SCH ×4 (08:00→20:50)
[2017-05-04] MEDS: FOLIC ACID 1 MG TAB PO SCH (08:24)
[2017-05-04] MEDS: LORATADINE 10 MG TAB PO SCH (08:24)
[2017-05-04] MEDS: MEGESTROL 40 MG TAB PO SCH (08:24)
[2017-05-04] MEDS: DONEPEZIL 5 MG TAB PO SCH (08:24)
[2017-05-04] MEDS: CIPROFLOXACIN 0.3% 3.5 GM OPH OINT RIGHT EYE SCH ×2 (08:25→20:46)
--- NOTE | 2017-05-04 15:16 | PN ---
Date/Time of Note Date/Time of Note DATE: 05/04/17 TIME: 15:05 Assessment/Plan VTE Prophylaxis VTE Prophylaxis Intervention: contraindicated Lines/Catheters IV Catheter Type (from Nrs): PERMACATH Urinary Cath still in place: No Assessment/Plan Assessment/Plan 1. Severe anemia secondary to CKD - H/H remains stable and no acute signs of bleeding - EGD did not show acute GI source of bleed, did see nasopharyngeal clot, however very unlikely nose bleed is cause of severe anemia. - will continue to monitor 2. ESRD, DD, HD - HD tmrw 3. Left thigh pain - No reported injury, trauma, ecchymosis, or erythema - US LLE negative for DVT and Xray negative for any acute issues - Will check Vit D levels and replace if needed 4. Dyslipidemia - on statin 5. BPH 6. Dementia, on Aricept 7. HTN - controlled 8. Tachycardia - Will order PRN metoprolol to keep SBP <110 8. Disposition - Would like patient more alert prior to d/c home Subjective 24 Hr Interval Summary Free Text/Dictation Patient resting comfortably but has still been complaining of left leg pain. As long as not repositioned or touched, does not experience any pain. All imaging studies negative for any abnormalities. No acute overnight events. Exam/Review of Systems Vital Signs Vitals Vital Signs Date Time Temp Pulse Resp B/P Pulse Ox O2 Delivery O2 Flow Rate FiO2 05/04/17 12:50 107 05/04/17 12:06 98.8 18 108/58 96 05/04/17 09:03 2.0 05/04/17 08:10 Nasal Cannula Intake and Output 05/03/17 05/03/17 05/04/17 15:00 23:00 07:00 Intake Total 400 ml 400 ml Output Total 1200 ml 0 ml Balance -800 ml 400 ml Exam General: Resting comfortably. opening eyes to voice and touch Head: Normocephalic atraumatic Eyes: EOMI, pupils reactive to light Neck: Supple Respiratory: Clear to auscultation bilaterally Cardiovascular: regular rate, no obvious murmurs. Gastrointestinal: non-tender to palpation, bowel sounds heard. Neurological: Moves all extremities spontaneously ext: tenderness left upper thigh with palpation. No signs of trauma, ecchymosis , or erythema Results Result Diagram: 05/04/1750605/04/17506 Results 24 hrs Laboratory Tests Test 05/03/17 17:34 05/03/17 20:52 05/04/17 03:22 05/04/17 05:07 Bedside Glucose 129 89 92 White Blood Count 8.4 Red Blood Count 3.31 L Hemoglobin 9.1 L Hematocrit 29.8 L Mean Corpuscular Volume 90.0 Mean Corpuscular Hemoglobin 27.5 L Mean Corpuscular Hemoglobin Concent 30.5 L Red Cell Distribution Width 17.1 H Platelet Count 189 Mean Platelet Volume 10.0 Neutrophils % 61.0 Lymphocytes % 15.4 Monocytes % 10.1 Eosinophils % 12.2 H Basophils % 0.9 Nucleated Red Blood Cells % 0.0 Neutrophils # 5.1 Lymphocytes # 1.3 Monocytes # 0.9 Eosinophils # 1.0 H Basophils # 0.1 Nucleated Red Blood Cells # 0.0 Sodium Level 138 Potassium Level 3.9 Chloride Level 107 Carbon Dioxide Level 29 Anion Gap 6 L Blood Urea Nitrogen 30 #H Creatinine 4.54 #H Glucose Level 88 Calcium Level 6.7 L Phosphorus Level 3.7 Magnesium Level 1.8 Albumin 1.6 L Test 05/04/17 08:08 05/04/17 12:22 Bedside Glucose 93 108 Medications Medications Current Medications Ondansetron HCl (Zofran Inj) 4 mg Q6H PRN IV NAUSEA AND/OR VOMITING; Start at 18:00 Acetaminophen (Tylenol Tab) 650 mg Q6H PRN PO PAIN LEVEL 1-3 OR FEVER; Start at 18:00 Acetaminophen/ Hydrocodone Bitart ([place] (5/325)) 1 tab Q6H PRN PO MODERATE PAIN LEVEL 4-6; Start 04/25/17 at 18:00 Morphine Sulfate (morphine) 2 mg Q4H PRN IV SEVERE PAIN LEVEL 7-10; Start 04/25 at 18:00 Docusate Sodium (Colace) 100 mg Q12H PRN PO CONSTIPATION; Start 04/25/17 at 18: 00 Lorazepam (Ativan) 0.5 mg Q6H PRN IV ANXIETY; Start 04/25/17 at 18:00 Hydralazine HCl (Apresoline) 10 mg Q6H PRN IV ELEVATED BLOOD PRESSURE; Start at 18:00 Nitroglycerin (Nitroglycerin (Sl Tab) 0.4 Mg) 1 tab Q5M PRN SL ANGINA; Start at 18:00 Atorvastatin Calcium (Lipitor) 20 mg HS PO Last administered on 05/03/17 20:56 ; Admin Dose 20 MG; Start 04/25/17 at 21:00 Donepezil HCl (Aricept) 5 mg DAILY PO Last administered on 05/04/17 08:24; Admin Dose 5 MG; Start 04/26/17 at 09:00 Famotidine (Pepcid) 20 mg Q24H PO Last administered on 04/25/17 21:43; Admin Dose 20 MG; Start 04/25/17 at 21:00; Status Future Hold Folic Acid (Folic Acid) 1 mg DAILY PO Last administered on 05/04/17 08:24; Admin Dose 1 MG; Start 04/26/17 at 09:00 Furosemide (Lasix) 20 mg DAILY PO ; Start 04/26/17 at 09:00; Status Future Hold Loratadine (Claritin) 10 mg DAILY PO Last administered on 05/04/17 08:24; Admin Dose 10 MG; Start 04/26/17 at 09:00 Megestrol Acetate (Megace) 40 mg DAILY PO Last administered on 05/04/17 08:24 ; Admin Dose 40 MG; Start 04/26/17 at 09:00 Tamsulosin HCl (Flomax) 0.4 mg HS PO Last administered on 05/03/17 20:56; Admin Dose 0.4 MG; Start 04/25/17 at 21:00 Diagnostic Test (Pha) (Accu-Chek) 1 ea 02 XX Last administered on 05/04/17 02: 00; Admin Dose 1 EA; Start 04/26/17 at 02:00 Miscellaneous Information 1 ea NOTE XX ; Start 04/25/17 at 19:00 Glucose (Glutose) 15 gm Q15M PRN PO DECREASED GLUCOSE; Start 04/25/17 at 19:00 Glucose (Glutose) 22.5 gm Q15M PRN PO DECREASED GLUCOSE; Start 04/25/17 at 19: 00 Dextrose (D50w Syringe) 25 ml Q15M PRN IV DECREASED GLUCOSE Last administered on 04/28/17 08:08; Admin Dose 25 ML; Start 04/25/17 at 19:00 Dextrose (D50w Syringe) 50 ml Q15M PRN IV DECREASED GLUCOSE; Start 04/25/17 at 19:00 Glucagon (Glucagen) 1 mg Q15M PRN IM DECREASED GLUCOSE; Start 04/25/17 at 19:00 Glucose (Glutose) 15 gm Q15M PRN BUCCAL DECREASED GLUCOSE; Start 04/25/17 at 19 :00 Ciprofloxacin HCl (Ciloxan 0.3% Oph Oint) 1 applic BID RIGHT EYE Last administered on 05/04/17 08:25; Admin Dose 1 APPLIC; Start 04/25/17 at 21:00 Lansoprazole (Prevacid) 30 mg DAILY@06 PO Last administered on 05/04/17 06:27 ; Admin Dose 30 MG; Start 05/01/17 at 06:00 Hydroxyzine HCl (Atarax) 25 mg Q8H PRN PO ITCHING Last administered on 21:11; Admin Dose 25 MG; Start 04/30/17 at 16:30 VIV FORD MD May 04, 2017 15:16
[2017-05-04] MEDS: CALCITRIOL 0.25 MCG CAP PO SCH (17:27)
--- NOTE | 2017-05-04 18:27 | CONS ---
Date/Time of Note Date/Time of Note DATE: 05/04/17 TIME: 18:27 Assessment/Plan Assessment/Plan Chief Complaint/Hosp Course - ESRD [facility] - Severe anemia - Severe Malnutrition - Anemia - CAD/CHF PLAN: - EGD noted - Post Blood Transfusion with stable H/H - Bedside HD tomorrow - Encourage PO Intake - Follow up with H/H Problems: Consultation Date/Type/Reason Admit Date/Time Apr 25, 2017 at 16:42 Initial Consult Date 04/26/17 Type of Consultation: NEPHROLOGY Reason for Consultation ESRD on HD Referring Provider: CARINA LINCOLN 24 HR Interval Summary Subjective hx not possible: pt non-verbal Constitutional: no complaints Exam/Review of Systems Vital Signs Vitals Vital Signs Date Time Temp Pulse Resp B/P Pulse Ox O2 Delivery O2 Flow Rate FiO2 05/04/17 16:45 103 05/04/17 15:38 98.6 18 138/76 96 05/04/17 09:03 2.0 05/04/17 08:10 Nasal Cannula Intake and Output 05/03/17 05/03/17 05/04/17 15:00 23:00 07:00 Intake Total 400 ml 400 ml Output Total 1200 ml 0 ml Balance -800 ml 400 ml Exam Constitutional: non-verbal Psych: no complaints Respiratory: crackles/rales Cardiovascular: regular rate and rhythm, systolic murmur Gastrointestinal: soft Results Result Diagram: 05/04/17 0507 05/04/17 0507 Results 24 hrs Laboratory Tests Test 05/03/17 20:52 05/04/17 03:22 05/04/17 05:07 05/04/17 08:08 Bedside Glucose 89 92 93 White Blood Count 8.4 Red Blood Count 3.31 L Hemoglobin 9.1 L Hematocrit 29.8 L Mean Corpuscular Volume 90.0 Mean Corpuscular Hemoglobin 27.5 L Mean Corpuscular Hemoglobin Concent 30.5 L Red Cell Distribution Width 17.1 H Platelet Count 189 Mean Platelet Volume 10.0 Neutrophils % 61.0 Lymphocytes % 15.4 Monocytes % 10.1 Eosinophils % 12.2 H Basophils % 0.9 Nucleated Red Blood Cells % 0.0 Neutrophils # 5.1 Lymphocytes # 1.3 Monocytes # 0.9 Eosinophils # 1.0 H Basophils # 0.1 Nucleated Red Blood Cells # 0.0 Sodium Level 138 Potassium Level 3.9 Chloride Level 107 Carbon Dioxide Level 29 Anion Gap 6 L Blood Urea Nitrogen 30 #H Creatinine 4.54 #H Glucose Level 88 Calcium Level 6.7 L Phosphorus Level 3.7 Magnesium Level 1.8 Albumin 1.6 L Test 05/04/17 12:22 05/04/17 17:26 Bedside Glucose 108 127 Medications Medications Current Medications Ondansetron HCl (Zofran Inj) 4 mg Q6H PRN IV NAUSEA AND/OR VOMITING; Start at 18:00 Acetaminophen (Tylenol Tab) 650 mg Q6H PRN PO PAIN LEVEL 1-3 OR FEVER; Start at 18:00 Acetaminophen/ Hydrocodone Bitart ([place] (5/325)) 1 tab Q6H PRN PO MODERATE PAIN LEVEL 4-6; Start 04/25/17 at 18:00 Morphine Sulfate (morphine) 2 mg Q4H PRN IV SEVERE PAIN LEVEL 7-10; Start 04/25 at 18:00 Docusate Sodium (Colace) 100 mg Q12H PRN PO CONSTIPATION; Start 04/25/17 at 18: 00 Lorazepam (Ativan) 0.5 mg Q6H PRN IV ANXIETY; Start 04/25/17 at 18:00 Hydralazine HCl (Apresoline) 10 mg Q6H PRN IV ELEVATED BLOOD PRESSURE; Start at 18:00 Nitroglycerin (Nitroglycerin (Sl Tab) 0.4 Mg) 1 tab Q5M PRN SL ANGINA; Start at 18:00 Atorvastatin Calcium (Lipitor) 20 mg HS PO Last administered on 05/03/17 20:56 ; Admin Dose 20 MG; Start 04/25/17 at 21:00 Donepezil HCl (Aricept) 5 mg DAILY PO Last administered on 05/04/17 08:24; Admin Dose 5 MG; Start 04/26/17 at 09:00 Famotidine (Pepcid) 20 mg Q24H PO Last administered on 04/25/17 21:43; Admin Dose 20 MG; Start 04/25/17 at 21:00; Status Future Hold Folic Acid (Folic Acid) 1 mg DAILY PO Last administered on 05/04/17 08:24; Admin Dose 1 MG; Start 04/26/17 at 09:00 Furosemide (Lasix) 20 mg DAILY PO ; Start 04/26/17 at 09:00; Status Future Hold Loratadine (Claritin) 10 mg DAILY PO Last administered on 05/04/17 08:24; Admin Dose 10 MG; Start 04/26/17 at 09:00 Megestrol Acetate (Megace) 40 mg DAILY PO Last administered on 05/04/17 08:24 ; Admin Dose 40 MG; Start 04/26/17 at 09:00 Tamsulosin HCl (Flomax) 0.4 mg HS PO Last administered on 05/03/17 20:56; Admin Dose 0.4 MG; Start 04/25/17 at 21:00 Diagnostic Test (Pha) (Accu-Chek) 1 ea 02 XX Last administered on 05/04/17 02: 00; Admin Dose 1 EA; Start 04/26/17 at 02:00 Miscellaneous Information 1 ea NOTE XX ; Start 04/25/17 at 19:00 Glucose (Glutose) 15 gm Q15M PRN PO DECREASED GLUCOSE; Start 04/25/17 at 19:00 Glucose (Glutose) 22.5 gm Q15M PRN PO DECREASED GLUCOSE; Start 04/25/17 at 19: 00 Dextrose (D50w Syringe) 25 ml Q15M PRN IV DECREASED GLUCOSE Last administered on 04/28/17 08:08; Admin Dose 25 ML; Start 04/25/17 at 19:00 Dextrose (D50w Syringe) 50 ml Q15M PRN IV DECREASED GLUCOSE; Start 04/25/17 at 19:00 Glucagon (Glucagen) 1 mg Q15M PRN IM DECREASED GLUCOSE; Start 04/25/17 at 19:00 Glucose (Glutose) 15 gm Q15M PRN BUCCAL DECREASED GLUCOSE; Start 04/25/17 at 19 :00 Ciprofloxacin HCl (Ciloxan 0.3% Oph Oint) 1 applic BID RIGHT EYE Last administered on 05/04/17 08:25; Admin Dose 1 APPLIC; Start 04/25/17 at 21:00 Lansoprazole (Prevacid) 30 mg DAILY@06 PO Last administered on 05/04/17 06:27 ; Admin Dose 30 MG; Start 05/01/17 at 06:00 Hydroxyzine HCl (Atarax) 25 mg Q8H PRN PO ITCHING Last administered on 21:11; Admin Dose 25 MG; Start 04/30/17 at 16:30 Calcitriol (Rocaltrol) 0.25 mcg DAILY PO Last administered on 05/04/17 17:27; Admin Dose 0.25 MCG; Start 05/04/17 at 16:00 DENVER ANTONY MD May 04, 2017 18:27
[2017-05-04] MEDS: TAMSULOSIN (SR) 0.4 MG CAP PO SCH (20:45)
[2017-05-04] MEDS: ATORVASTATIN 20 MG TAB PO SCH (20:45)
[2017-05-04] MEDS: hydrOXYzine HCL 10 MG TAB PO PRN (20:46)
[2017-05-05] VITALS (18 sets, daily range): BP systolic 74–151; BP diastolic 34–64; PULSE 67–125; RESP 16–20
[2017-05-05] MEDS: ACCU-CHEK XX SCH (01:56)
[2017-05-05] MEDS: LANSOPRAZOLE 30 MG CAP PO SCH (05:09)
[2017-05-05] MEDS: INSULIN ASPART [NOVOLOG] 3 ML PEN SC SCH ×4 (08:00→21:00)
[2017-05-05] MEDS: CALCITRIOL 0.25 MCG CAP PO SCH (08:36)
[2017-05-05] MEDS: FOLIC ACID 1 MG TAB PO SCH (08:37)
[2017-05-05] MEDS: LORATADINE 10 MG TAB PO SCH (08:37)
[2017-05-05] MEDS: DONEPEZIL 5 MG TAB PO SCH (08:37)
[2017-05-05] MEDS: CIPROFLOXACIN 0.3% 3.5 GM OPH OINT RIGHT EYE SCH ×2 (08:38→21:48)
[2017-05-05] MEDS: MEGESTROL 40 MG TAB PO SCH (08:38)
[2017-05-05 08:41] LABS: BASOPHIL # 0.1 10^3/ul (0.0-0.1); BASOPHILS % 1.4 % (0.0-2.0); HEMATOCRIT 33.3 % (42.0-52.0); HEMOGLOBIN 9.8 g/dl (14.0-18.0); LYMPHOCYTES % 11.8 % (15.0-51.0); MEAN CORPUSCULAR HEMOGLOBIN 26.9 pg (29.0-33.0); MEAN CORPUSCULAR HGB CONC 29.4 g/dl (32.0-37.0); MEAN CORPUSCULAR VOLUME 91.5 fl (82.0-101.0); MEAN PLATELET VOLUME 9.9 fl (7.4-10.4); MONOCYTE # 0.9 10^3/ul (0.3-0.9); MONOCYTES % 10.7 % (0.0-11.0); NEUTROPHIL # 5.1 10^3/ul (1.6-7.5); NEUTROPHILS % 63.7 % (39.0-77.0); PLATELET COUNT 179 10^3/UL (140-415); RED BLOOD COUNT 3.64 10^6/ul (4.70-6.10); WHITE BLOOD COUNT 8.1 10^3/ul (4.8-10.8)
[2017-05-05 09:00] LABS: ALBUMIN 1.8 g/dl (3.3-4.9); CALCIUM 6.7 mg/dl (8.4-10.2); CREATININE 5.96 mg/dl (0.61-1.24); PHOSPHORUS 4.4 mg/dl (2.5-4.9); POTASSIUM 3.9 mmol/L (3.5-5.1)
--- NOTE | 2017-05-05 13:35 | CONS ---
Date/Time of Note Date/Time of Note DATE: 05/05/17 TIME: 13:34 Assessment/Plan Assessment/Plan Chief Complaint/Hosp Course - [facility] Severe anemia - Severe Malnutrition - Anemia - CAD/CHF PLAN: - EGD noted - Post Blood Transfusion with stable H/H - Bedside HD - Borderline low BP with tachycardia on HD - Will holdd further HD & re-evaluate in AM - Encourage PO Intake - Follow up with H/H Problems: Consultation Date/Type/Reason Admit Date/Time Apr 25, 2017 at 16:42 Initial Consult Date 04/26/17 Type of Consultation: NEPHROLOGY Reason for Consultation ESRD on dialysis Referring Provider: CARINA LINCOLN 24 HR Interval Summary Subjective hx not possible: pt non-verbal Constitutional: no complaints Exam/Review of Systems Vital Signs Vitals Vital Signs Date Time Temp Pulse Resp B/P Pulse Ox O2 Delivery O2 Flow Rate FiO2 05/05/17 12:10 113 05/05/17 11:57 98.6 18 109/59 97 05/05/17 08:30 Nasal Cannula 2.0 Intake and Output 05/04/17 05/04/17 05/05/17 15:00 23:00 07:00 Intake Total 100 ml 200 ml 200 ml Output Total 0 ml Balance 100 ml 200 ml 200 ml Exam Constitutional: non-verbal Respiratory: crackles/rales Cardiovascular: edema, regular rate and rhythm, systolic murmur Gastrointestinal: soft Results Result Diagram: 05/05/17 0720 05/05/17 0720 Results 24 hrs Laboratory Tests Test 05/04/17 17:26 05/04/17 20:44 05/05/17 07:20 05/05/17 08:35 Bedside Glucose 127 115 72 White Blood Count 8.1 Red Blood Count 3.64 L Hemoglobin 9.8 L Hematocrit 33.3 L Mean Corpuscular Volume 91.5 Mean Corpuscular Hemoglobin 26.9 L Mean Corpuscular Hemoglobin Concent 29.4 L Red Cell Distribution Width 17.0 H Platelet Count 179 Mean Platelet Volume 9.9 Neutrophils % 63.7 Lymphocytes % 11.8 L Monocytes % 10.7 Eosinophils % 12.0 H Basophils % 1.4 Nucleated Red Blood Cells % 0.0 Neutrophils # 5.1 Lymphocytes # 1.0 Monocytes # 0.9 Eosinophils # 1.0 H Basophils # 0.1 Nucleated Red Blood Cells # 0.0 Sodium Level 140 Potassium Level 3.9 Chloride Level 106 Carbon Dioxide Level 30 Anion Gap 8 Blood Urea Nitrogen 42 #H Creatinine 5.96 H Glucose Level 80 Calcium Level 6.7 L Phosphorus Level 4.4 Magnesium Level 2.0 Albumin 1.8 L Test 05/05/17 12:16 Bedside Glucose 104 Medications Medications Current Medications Ondansetron HCl (Zofran Inj) 4 mg Q6H PRN IV NAUSEA AND/OR VOMITING; Start at 18:00 Acetaminophen (Tylenol Tab) 650 mg Q6H PRN PO PAIN LEVEL 1-3 OR FEVER Last administered on 05/04/17 20:45; Admin Dose 650 MG; Start 04/25/17 at 18:00 Acetaminophen/ Hydrocodone Bitart ([place] (5/325)) 1 tab Q6H PRN PO MODERATE PAIN LEVEL 4-6; Start 04/25/17 at 18:00 Morphine Sulfate (morphine) 2 mg Q4H PRN IV SEVERE PAIN LEVEL 7-10; Start 04/25 at 18:00 Docusate Sodium (Colace) 100 mg Q12H PRN PO CONSTIPATION; Start 04/25/17 at 18: 00 Lorazepam (Ativan) 0.5 mg Q6H PRN IV ANXIETY; Start 04/25/17 at 18:00 Hydralazine HCl (Apresoline) 10 mg Q6H PRN IV ELEVATED BLOOD PRESSURE; Start at 18:00 Nitroglycerin (Nitroglycerin (Sl Tab) 0.4 Mg) 1 tab Q5M PRN SL ANGINA; Start at 18:00 Atorvastatin Calcium (Lipitor) 20 mg HS PO Last administered on 05/04/17 20:45 ; Admin Dose 20 MG; Start 04/25/17 at 21:00 Donepezil HCl (Aricept) 5 mg DAILY PO Last administered on 05/05/17 08:37; Admin Dose 5 MG; Start 04/26/17 at 09:00 Famotidine (Pepcid) 20 mg Q24H PO Last administered on 04/25/17 21:43; Admin Dose 20 MG; Start 04/25/17 at 21:00; Status Future Hold Folic Acid (Folic Acid) 1 mg DAILY PO Last administered on 05/05/17 08:37; Admin Dose 1 MG; Start 04/26/17 at 09:00 Furosemide (Lasix) 20 mg DAILY PO ; Start 04/26/17 at 09:00; Status Future Hold Loratadine (Claritin) 10 mg DAILY PO Last administered on 05/05/17 08:37; Admin Dose 10 MG; Start 04/26/17 at 09:00 Megestrol Acetate (Megace) 40 mg DAILY PO Last administered on 05/05/17 08:38 ; Admin Dose 40 MG; Start 04/26/17 at 09:00 Tamsulosin HCl (Flomax) 0.4 mg HS PO Last administered on 05/04/17 20:45; Admin Dose 0.4 MG; Start 04/25/17 at 21:00 Diagnostic Test (Pha) (Accu-Chek) 1 ea 02 XX Last administered on 05/04/17 02: 00; Admin Dose 1 EA; Start 04/26/17 at 02:00 Miscellaneous Information 1 ea NOTE XX ; Start 04/25/17 at 19:00 Glucose (Glutose) 15 gm Q15M PRN PO DECREASED GLUCOSE; Start 04/25/17 at 19:00 Glucose (Glutose) 22.5 gm Q15M PRN PO DECREASED GLUCOSE; Start 04/25/17 at 19: 00 Dextrose (D50w Syringe) 25 ml Q15M PRN IV DECREASED GLUCOSE Last administered on 04/28/17 08:08; Admin Dose 25 ML; Start 04/25/17 at 19:00 Dextrose (D50w Syringe) 50 ml Q15M PRN IV DECREASED GLUCOSE; Start 04/25/17 at 19:00 Glucagon (Glucagen) 1 mg Q15M PRN IM DECREASED GLUCOSE; Start 04/25/17 at 19:00 Glucose (Glutose) 15 gm Q15M PRN BUCCAL DECREASED GLUCOSE; Start 04/25/17 at 19 :00 Ciprofloxacin HCl (Ciloxan 0.3% Oph Oint) 1 applic BID RIGHT EYE Last administered on 05/05/17 08:38; Admin Dose 1 APPLIC; Start 04/25/17 at 21:00 Lansoprazole (Prevacid) 30 mg DAILY@06 PO Last administered on 05/05/17 05:09 ; Admin Dose 30 MG; Start 05/01/17 at 06:00 Hydroxyzine HCl (Atarax) 25 mg Q8H PRN PO ITCHING Last administered on 20:46; Admin Dose 25 MG; Start 04/30/17 at 16:30 Calcitriol (Rocaltrol) 0.25 mcg DAILY PO Last administered on 05/05/17 08:36; Admin Dose 0.25 MCG; Start 05/04/17 at 16:00 DENVER ANTONY MD May 05, 2017 13:35
--- NOTE | 2017-05-05 14:01 | PN ---
Date/Time of Note Date/Time of Note DATE: 05/05/17 TIME: 13:58 Assessment/Plan VTE Prophylaxis VTE Prophylaxis Intervention: heparin Lines/Catheters IV Catheter Type (from Nrs): Permacath Urinary Cath still in place: No Assessment/Plan Assessment/Plan 1. Severe anemia secondary to CKD - H/H remains stable and no acute signs of bleeding - EGD did not show acute GI source of bleed, did see nasopharyngeal clot, however very unlikely nose bleed is cause of severe anemia. - will continue to monitor 2. ESRD, DD, HD - Did not tolerate HD this am and will reattempt tmrw morning - K and Mg stable 3. Left thigh pain - No reported injury, trauma, ecchymosis, or erythema - US LLE negative for DVT and Xray negative for any acute issues - Will check Vit D levels and replace if needed 4. Dyslipidemia - on statin 5. BPH 6. Dementia, on Aricept 7. HTN - controlled 8. Tachycardia - Will order PRN metoprolol to keep SBP <110 9. Hypocalcemia - Started on Calcitrol yesterday. Will monitor - Vit D studies pending Subjective 24 Hr Interval Summary Free Text/Dictation Patient did not tolerate HD this am and was hypotensive and tachycardiac with PVCs and PACs on the monitor. After HD was stopped patient states he was feeling better with no new complaints. No acute overnight events. Exam/Review of Systems Vital Signs Vitals Vital Signs Date Time Temp Pulse Resp B/P Pulse Ox O2 Delivery O2 Flow Rate FiO2 05/05/17 12:46 119 14 05/05/17 11:57 98.6 109/59 97 05/05/17 08:30 Nasal Cannula 2.0 Intake and Output 05/04/17 05/04/17 05/05/17 15:00 23:00 07:00 Intake Total 100 ml 200 ml 200 ml Output Total 0 ml Balance 100 ml 200 ml 200 ml Exam General: Resting comfortably. opening eyes to voice and responding to questions Head: Normocephalic atraumatic Eyes: EOMI, pupils reactive to light Neck: Supple Respiratory: Clear to auscultation bilaterally Cardiovascular: regular rate, no obvious murmurs. Permanent cath in place R chest wall Gastrointestinal: non-tender to palpation, bowel sounds heard. Neurological: Moves all extremities spontaneously ext: tenderness left upper thigh with palpation. No signs of trauma, ecchymosis, or erythema Results Result Diagram: 05/05/17 0720 05/05/17 0720 Results 24 hrs Laboratory Tests Test 05/04/17 17:26 05/04/17 20:44 05/05/17 07:20 05/05/17 08:35 Bedside Glucose 127 115 72 White Blood Count 8.1 Red Blood Count 3.64 L Hemoglobin 9.8 L Hematocrit 33.3 L Mean Corpuscular Volume 91.5 Mean Corpuscular Hemoglobin 26.9 L Mean Corpuscular Hemoglobin Concent 29.4 L Red Cell Distribution Width 17.0 H Platelet Count 179 Mean Platelet Volume 9.9 Neutrophils % 63.7 Lymphocytes % 11.8 L Monocytes % 10.7 Eosinophils % 12.0 H Basophils % 1.4 Nucleated Red Blood Cells % 0.0 Neutrophils # 5.1 Lymphocytes # 1.0 Monocytes # 0.9 Eosinophils # 1.0 H Basophils # 0.1 Nucleated Red Blood Cells # 0.0 Sodium Level 140 Potassium Level 3.9 Chloride Level 106 Carbon Dioxide Level 30 Anion Gap 8 Blood Urea Nitrogen 42 #H Creatinine 5.96 H Glucose Level 80 Calcium Level 6.7 L Phosphorus Level 4.4 Magnesium Level 2.0 Albumin 1.8 L Test 05/05/17 12:16 Bedside Glucose 104 Medications Medications Current Medications Ondansetron HCl (Zofran Inj) 4 mg Q6H PRN IV NAUSEA AND/OR VOMITING; Start at 18:00 Acetaminophen (Tylenol Tab) 650 mg Q6H PRN PO PAIN LEVEL 1-3 OR FEVER Last administered on 05/04/17t 20:45; Admin Dose 650 MG; Start 04/25/17 at 18:00 Acetaminophen/ Hydrocodone Bitart ([place] (5/325)) 1 tab Q6H PRN PO MODERATE PAIN LEVEL 4-6; Start 04/25/17 at 18:00 Morphine Sulfate (morphine) 2 mg Q4H PRN IV SEVERE PAIN LEVEL 7-10; Start 04/25 at 18:00 Docusate Sodium (Colace) 100 mg Q12H PRN PO CONSTIPATION; Start 04/25/17 at 18: 00 Lorazepam (Ativan) 0.5 mg Q6H PRN IV ANXIETY; Start 04/25/17 at 18:00 Hydralazine HCl (Apresoline) 10 mg Q6H PRN IV ELEVATED BLOOD PRESSURE; Start at 18:00 Nitroglycerin (Nitroglycerin (Sl Tab) 0.4 Mg) 1 tab Q5M PRN SL ANGINA; Start at 18:00 Atorvastatin Calcium (Lipitor) 20 mg HS PO Last administered on 05/04/17 20:45 ; Admin Dose 20 MG; Start 04/25/17 at 21:00 Donepezil HCl (Aricept) 5 mg DAILY PO Last administered on 05/05/17 08:37; Admin Dose 5 MG; Start 04/26/17 at 09:00 Famotidine (Pepcid) 20 mg Q24H PO Last administered on 04/25/17 21:43; Admin Dose 20 MG; Start 04/25/17 at 21:00; Status Future Hold Folic Acid (Folic Acid) 1 mg DAILY PO Last administered on 05/05/17 08:37; Admin Dose 1 MG; Start 04/26/17 at 09:00 Furosemide (Lasix) 20 mg DAILY PO ; Start 04/26/17 at 09:00; Status Future Hold Loratadine (Claritin) 10 mg DAILY PO Last administered on 05/05/17 08:37; Admin Dose 10 MG; Start 04/26/17 at 09:00 Megestrol Acetate (Megace) 40 mg DAILY PO Last administered on 05/05/17 08:38 ; Admin Dose 40 MG; Start 04/26/17 at 09:00 Tamsulosin HCl (Flomax) 0.4 mg HS PO Last administered on 05/04/17 20:45; Admin Dose 0.4 MG; Start 04/25/17 at 21:00 Diagnostic Test (Pha) (Accu-Chek) 1 ea 02 XX Last administered on 05/04/17 02: 00; Admin Dose 1 EA; Start 04/26/17 at 02:00 Miscellaneous Information 1 ea NOTE XX ; Start 04/25/17 at 19:00 Glucose (Glutose) 15 gm Q15M PRN PO DECREASED GLUCOSE; Start 04/25/17 at 19:00 Glucose (Glutose) 22.5 gm Q15M PRN PO DECREASED GLUCOSE; Start 04/25/17 at 19: 00 Dextrose (D50w Syringe) 25 ml Q15M PRN IV DECREASED GLUCOSE Last administered on 04/28/17 08:08; Admin Dose 25 ML; Start 04/25/17 at 19:00 Dextrose (D50w Syringe) 50 ml Q15M PRN IV DECREASED GLUCOSE; Start 04/25/17 at 19:00 Glucagon (Glucagen) 1 mg Q15M PRN IM DECREASED GLUCOSE; Start 04/25/17 at 19:00 Glucose (Glutose) 15 gm Q15M PRN BUCCAL DECREASED GLUCOSE; Start 04/25/17 at 19 :00 Ciprofloxacin HCl (Ciloxan 0.3% Oph Oint) 1 applic BID RIGHT EYE Last administered on 05/05/17 08:38; Admin Dose 1 APPLIC; Start 04/25/17 at 21:00 Lansoprazole (Prevacid) 30 mg DAILY@06 PO Last administered on 05/05/17 05:09 ; Admin Dose 30 MG; Start 05/01/17 at 06:00 Hydroxyzine HCl (Atarax) 25 mg Q8H PRN PO ITCHING Last administered on 20:46; Admin Dose 25 MG; Start 04/30/17 at 16:30 Calcitriol (Rocaltrol) 0.25 mcg DAILY PO Last administered on 05/05/17 08:36; Admin Dose 0.25 MCG; Start 05/04/17 at 16:00 VIV FORD MD May 05, 2017 14:01
[2017-05-05] MEDS: ATORVASTATIN 20 MG TAB PO SCH (21:48)
[2017-05-05] MEDS: TAMSULOSIN (SR) 0.4 MG CAP PO SCH (21:48)
[2017-05-06] VITALS (12 sets, daily range): BP systolic 92–130; BP diastolic 52–61; PULSE 80–130; RESP 18–20
[2017-05-06] MEDS: ACCU-CHEK XX SCH (02:00)
[2017-05-06] MEDS: LANSOPRAZOLE 30 MG CAP PO SCH (06:05)
[2017-05-06 07:20] LABS: BASOPHIL # 0.1 10^3/ul (0.0-0.1); BASOPHILS % 0.8 % (0.0-2.0); EOSINOPHILS # 0.3 10^3/ul (0.0-0.5); EOSINOPHILS % 3.8 % (0.0-7.0); HEMATOCRIT 33.1 % (42.0-52.0); HEMOGLOBIN 9.8 g/dl (14.0-18.0); LYMPHOCYTES # 0.9 10^3/ul (0.8-2.9); LYMPHOCYTES % 12.6 % (15.0-51.0); MEAN CORPUSCULAR HEMOGLOBIN 26.8 pg (29.0-33.0); MEAN CORPUSCULAR HGB CONC 29.6 g/dl (32.0-37.0); MEAN CORPUSCULAR VOLUME 90.7 fl (82.0-101.0); MEAN PLATELET VOLUME 9.5 fl (7.4-10.4); MONOCYTE # 0.7 10^3/ul (0.3-0.9); MONOCYTES % 8.8 % (0.0-11.0); NEUTROPHIL # 5.4 10^3/ul (1.6-7.5); NEUTROPHILS % 73.5 % (39.0-77.0); PLATELET COUNT 207 10^3/UL (140-415); RED BLOOD COUNT 3.65 10^6/ul (4.70-6.10); RED CELL DISTRIBUTION WIDTH 16.9 % (11.5-14.5); WHITE BLOOD COUNT 7.4 10^3/ul (4.8-10.8)
[2017-05-06 07:34] LABS: ALBUMIN 1.9 g/dl (3.3-4.9); CALCIUM 6.8 mg/dl (8.4-10.2); CREATININE 6.11 mg/dl (0.61-1.24); MAGNESIUM 1.9 mg/dl (1.7-2.5); PHOSPHORUS 4.9 mg/dl (2.5-4.9); POTASSIUM 4.4 mmol/L (3.5-5.1)
[2017-05-06] MEDS: INSULIN ASPART [NOVOLOG] 3 ML PEN SC SCH ×4 (08:00→21:00)
[2017-05-06] MEDS: CALCITRIOL 0.25 MCG CAP PO SCH (10:04)
[2017-05-06] MEDS: CIPROFLOXACIN 0.3% 3.5 GM OPH OINT RIGHT EYE SCH ×2 (10:04→21:33)
[2017-05-06] MEDS: LORATADINE 10 MG TAB PO SCH (10:05)
[2017-05-06] MEDS: DONEPEZIL 5 MG TAB PO SCH (10:05)
[2017-05-06] MEDS: MEGESTROL 40 MG TAB PO SCH (10:05)
[2017-05-06] MEDS: FOLIC ACID 1 MG TAB PO SCH (10:05)
--- NOTE | 2017-05-06 17:24 | PN ---
Date/Time of Note Date/Time of Note DATE: 05/06/17 TIME: 17:19 Assessment/Plan VTE Prophylaxis VTE Prophylaxis Intervention: heparin Lines/Catheters IV Catheter Type (from Nrs): Permacath Urinary Cath still in place: No Assessment/Plan Assessment/Plan 1. Severe anemia secondary to CKD - H/H remains stable and no acute signs of bleeding - EGD did not show acute GI source of bleed, did see nasopharyngeal clot, however very unlikely nose bleed is cause of severe anemia. - will continue to monitor 2. ESRD, DD, HD - Was not able to performed HD this am again due to hypotension and lethargy - K and Mg stable 3. Left thigh pain - No reported injury, trauma, ecchymosis, or erythema - US LLE negative for DVT and Xray negative for any acute issues - Vit D 1-25 level very low <12 and awaiting Vit D 25 levels. Started on Vit D 2000 units daily but may need high dose 50K weekly for 8 weeks 4. Dyslipidemia - on statin 5. BPH 6. Dementia, on Aricept 7. HTN - controlled 8. Tachycardia - Will order PRN metoprolol to keep SBP <110 9. Hypocalcemia - Started on Calcitrol. Will monitor 10. Vit D deficiency - Awaiting Vit D 25 results but Vit D 1-25 very low. Will started on 2K daily but will probably need high dose based on Vit D25 results 11. Disposition - Patients family still adamant on taking patient home with HH services once stable for d/c Subjective 24 Hr Interval Summary Free Text/Dictation Patient still lethargic but more responsive when son present. Tolerating PO intake when fed by son. BP still on the low side but no c/o chest pain or SOB. Exam/Review of Systems Vital Signs Vitals Vital Signs Date Time Temp Pulse Resp B/P Pulse Ox O2 Delivery O2 Flow Rate FiO2 05/06/17 16:05 114 05/06/17 16:00 98.0 18 130/61 94 05/06/17 09:45 Nasal Cannula 2.0 Intake and Output 05/05/17 05/05/17 05/06/17 15:00 23:00 07:00 Intake Total 700 ml 150 ml 200 ml Output Total 700 ml Balance 0 ml 150 ml 200 ml Exam General: Resting comfortably. opening eyes to voice and responding to questions Head: Normocephalic atraumatic Eyes: EOMI, pupils reactive to light Neck: Supple Respiratory: Clear to auscultation bilaterally Cardiovascular: regular rate, no obvious murmurs. Permanent cath in place R chest wall Gastrointestinal: non-tender to palpation, bowel sounds heard. Neurological: Moves all extremities spontaneously ext: tenderness left upper thigh with palpation. No signs of trauma, ecchymosis, or erythema Results Result Diagram: 05/06/17 0705/06/17 0701 Results 24 hrs Laboratory Tests Test 05/05/17 17:21 05/05/17 21:46 05/06/17 07:01 05/06/17 08:13 Bedside Glucose 71 99 97 White Blood Count 7.4 Red Blood Count 3.65 L Hemoglobin 9.8 L Hematocrit 33.1 L Mean Corpuscular Volume 90.7 Mean Corpuscular Hemoglobin 26.8 L Mean Corpuscular Hemoglobin Concent 29.6 L Red Cell Distribution Width 16.9 H Platelet Count 207 Mean Platelet Volume 9.5 Neutrophils % 73.5 Lymphocytes % 12.6 L Monocytes % 8.8 Eosinophils % 3.8 Basophils % 0.8 Nucleated Red Blood Cells % 0.0 Neutrophils # 5.4 Lymphocytes # 0.9 Monocytes # 0.7 Eosinophils # 0.3 Basophils # 0.1 Nucleated Red Blood Cells # 0.0 Sodium Level 141 Potassium Level 4.4 Chloride Level 106 Carbon Dioxide Level 29 Anion Gap 10 Blood Urea Nitrogen 39 H Creatinine 6.11 H Glucose Level 103 Calcium Level 6.8 L Phosphorus Level 4.9 Magnesium Level 1.9 Albumin 1.9 L Test 05/06/17 11:51 05/06/17 12:03 05/06/17 17:17 Vitamin D 1,25-Dihydroxy < 12.8 L Bedside Glucose 117 125 Medications Medications Current Medications Ondansetron HCl (Zofran Inj) 4 mg Q6H PRN IV NAUSEA AND/OR VOMITING; Start at 18:00 Acetaminophen (Tylenol Tab) 650 mg Q6H PRN PO PAIN LEVEL 1-3 OR FEVER Last administered on 05/04/17t 20:45; Admin Dose 650 MG; Start 04/25/17 at 18:00 Acetaminophen/ Hydrocodone Bitart ([place] (5/325)) 1 tab Q6H PRN PO MODERATE PAIN LEVEL 4-6; Start 04/25/17 at 18:00 Morphine Sulfate (morphine) 2 mg Q4H PRN IV SEVERE PAIN LEVEL 7-10; Start 04/25 at 18:00 Docusate Sodium (Colace) 100 mg Q12H PRN PO CONSTIPATION; Start 04/25/17 at 18: 00 Lorazepam (Ativan) 0.5 mg Q6H PRN IV ANXIETY; Start 04/25/17 at 18:00 Hydralazine HCl (Apresoline) 10 mg Q6H PRN IV ELEVATED BLOOD PRESSURE; Start at 18:00 Nitroglycerin (Nitroglycerin (Sl Tab) 0.4 Mg) 1 tab Q5M PRN SL ANGINA; Start at 18:00 Atorvastatin Calcium (Lipitor) 20 mg HS PO Last administered on 05/05/17 21:48 ; Admin Dose 20 MG; Start 04/25/17 at 21:00 Donepezil HCl (Aricept) 5 mg DAILY PO Last administered on 05/06/17 10:05; Admin Dose 5 MG; Start 04/26/17 at 09:00 Famotidine (Pepcid) 20 mg Q24H PO Last administered on 04/25/17 21:43; Admin Dose 20 MG; Start 04/25/17 at 21:00; Status Future Hold Folic Acid (Folic Acid) 1 mg DAILY PO Last administered on 05/06/17 10:05; Admin Dose 1 MG; Start 04/26/17 at 09:00 Furosemide (Lasix) 20 mg DAILY PO ; Start 04/26/17 at 09:00; Status Future Hold Loratadine (Claritin) 10 mg DAILY PO Last administered on 05/06/17 10:05; Admin Dose 10 MG; Start 04/26/17 at 09:00 Megestrol Acetate (Megace) 40 mg DAILY PO Last administered on 05/06/17 10:05 ; Admin Dose 40 MG; Start 04/26/17 at 09:00 Tamsulosin HCl (Flomax) 0.4 mg HS PO Last administered on 05/05/17 21:48; Admin Dose 0.4 MG; Start 04/25/17 at 21:00 Diagnostic Test (Pha) (Accu-Chek) 1 ea 02 XX Last administered on 05/04/17 02: 00; Admin Dose 1 EA; Start 04/26/17 at 02:00 Miscellaneous Information 1 ea NOTE XX ; Start 04/25/17 at 19:00 Glucose (Glutose) 15 gm Q15M PRN PO DECREASED GLUCOSE; Start 04/25/17 at 19:00 Glucose (Glutose) 22.5 gm Q15M PRN PO DECREASED GLUCOSE; Start 04/25/17 at 19: 00 Dextrose (D50w Syringe) 25 ml Q15M PRN IV DECREASED GLUCOSE Last administered on 04/28/17 08:08; Admin Dose 25 ML; Start 04/25/17 at 19:00 Dextrose (D50w Syringe) 50 ml Q15M PRN IV DECREASED GLUCOSE; Start 04/25/17 at 19:00 Glucagon (Glucagen) 1 mg Q15M PRN IM DECREASED GLUCOSE; Start 04/25/17 at 19:00 Glucose (Glutose) 15 gm Q15M PRN BUCCAL DECREASED GLUCOSE; Start 04/25/17 at 19 :00 Ciprofloxacin HCl (Ciloxan 0.3% Oph Oint) 1 applic BID RIGHT EYE Last administered on 05/06/17 10:04; Admin Dose 1 APPLIC; Start 04/25/17 at 21:00 Lansoprazole (Prevacid) 30 mg DAILY@06 PO Last administered on 05/06/17 06:05 ; Admin Dose 30 MG; Start 05/01/17 at 06:00 Hydroxyzine HCl (Atarax) 25 mg Q8H PRN PO ITCHING Last administered on 20:46; Admin Dose 25 MG; Start 04/30/17 at 16:30 Calcitriol (Rocaltrol) 0.25 mcg DAILY PO Last administered on 05/06/17 10:04; Admin Dose 0.25 MCG; Start 05/04/17 at 16:00 VIV FORD MD May 06, 2017 17:24
[2017-05-06] MEDS: ATORVASTATIN 20 MG TAB PO SCH (21:33)
[2017-05-06] MEDS: TAMSULOSIN (SR) 0.4 MG CAP PO SCH (21:33)
--- NOTE | 2017-05-06 22:21 | CONS ---
Date/Time of Note Date/Time of Note DATE: 05/06/17 TIME: 22:20 Assessment/Plan Assessment/Plan Chief Complaint/Hosp Course - [place] [facility] [place] Severe anemia - Severe Malnutrition - Anemia - CAD/CHF PLAN: - EGD noted - Post Blood Transfusion with stable H/H - Bedside HD on sunday was cut short - Borderline low BP with tachycardia on HD - Encourage PO Intake - Follow up with H/H Problems: Consultation Date/Type/Reason Admit Date/Time Apr 25, 2017 at 16:42 Initial Consult Date 04/26/17 Type of Consultation: NEPHROLOGY Reason for Consultation ESRD Referring Provider: CARINA LINCOLN 24 HR Interval Summary Subjective hx not possible: pt non-verbal Constitutional: no complaints Exam/Review of Systems Vital Signs Vitals Vital Signs Date Time Temp Pulse Resp B/P Pulse Ox O2 Delivery O2 Flow Rate FiO2 05/06/17 20:04 80 05/06/17 19:52 2.0 05/06/17 19:48 98.9 18 109/54 96 05/06/17 09:45 Nasal Cannula Intake and Output 05/05/17 05/05/17 05/06/17 15:00 23:00 07:00 Intake Total 700 ml 150 ml 200 ml Output Total 700 ml Balance 0 ml 150 ml 200 ml Exam Constitutional: non-verbal Respiratory: crackles/rales Cardiovascular: edema, regular rate and rhythm, systolic murmur Gastrointestinal: soft Results Result Diagram: 05/06/17 0701 05/06/17 0701 Results 24 hrs Laboratory Tests Test 05/06/17 07:01 05/06/17 08:13 05/06/17 11:51 05/06/17 12:03 White Blood Count 7.4 Red Blood Count 3.65 L Hemoglobin 9.8 L Hematocrit 33.1 L Mean Corpuscular Volume 90.7 Mean Corpuscular Hemoglobin 26.8 L Mean Corpuscular Hemoglobin Concent 29.6 L Red Cell Distribution Width 16.9 H Platelet Count 207 Mean Platelet Volume 9.5 Neutrophils % 73.5 Lymphocytes % 12.6 L Monocytes % 8.8 Eosinophils % 3.8 Basophils % 0.8 Nucleated Red Blood Cells % 0.0 Neutrophils # 5.4 Lymphocytes # 0.9 Monocytes # 0.7 Eosinophils # 0.3 Basophils # 0.1 Nucleated Red Blood Cells # 0.0 Sodium Level 141 Potassium Level 4.4 Chloride Level 106 Carbon Dioxide Level 29 Anion Gap 10 Blood Urea Nitrogen 39 H Creatinine 6.11 H Glucose Level 103 Calcium Level 6.8 L Phosphorus Level 4.9 Magnesium Level 1.9 Albumin 1.9 L Bedside Glucose 97 117 Vitamin D 1,25-Dihydroxy < 12.8 L Test 05/06/17 17:17 05/06/17 21:29 05/06/17 21:31 Bedside Glucose 125 101 103 Medications Medications Current Medications Ondansetron HCl (Zofran Inj) 4 mg Q6H PRN IV NAUSEA AND/OR VOMITING; Start at 18:00 Acetaminophen (Tylenol Tab) 650 mg Q6H PRN PO PAIN LEVEL 1-3 OR FEVER Last administered on 05/04/17 20:45; Admin Dose 650 MG; Start 04/25/17 at 18:00 Acetaminophen/ Hydrocodone Bitart ([place] (5/325)) 1 tab Q6H PRN PO MODERATE PAIN LEVEL 4-6; Start 04/25/17 at 18:00 Morphine Sulfate (morphine) 2 mg Q4H PRN IV SEVERE PAIN LEVEL 7-10; Start 04/25 at 18:00 Docusate Sodium (Colace) 100 mg Q12H PRN PO CONSTIPATION; Start 04/25/17 at 18: 00 Lorazepam (Ativan) 0.5 mg Q6H PRN IV ANXIETY; Start 04/25/17 at 18:00 Hydralazine HCl (Apresoline) 10 mg Q6H PRN IV ELEVATED BLOOD PRESSURE; Start at 18:00 Nitroglycerin (Nitroglycerin (Sl Tab) 0.4 Mg) 1 tab Q5M PRN SL ANGINA; Start at 18:00 Atorvastatin Calcium (Lipitor) 20 mg HS PO Last administered on 05/06/17 21:33 ; Admin Dose 20 MG; Start 04/25/17 at 21:00 Donepezil HCl (Aricept) 5 mg DAILY PO Last administered on 05/06/17 10:05; Admin Dose 5 MG; Start 04/26/17 at 09:00 Famotidine (Pepcid) 20 mg Q24H PO Last administered on 04/25/17 21:43; Admin Dose 20 MG; Start 04/25/17 at 21:00; Status Future Hold Folic Acid (Folic Acid) 1 mg DAILY PO Last administered on 05/06/17 10:05; Admin Dose 1 MG; Start 04/26/17 at 09:00 Furosemide (Lasix) 20 mg DAILY PO ; Start 04/26/17 at 09:00; Status Future Hold Loratadine (Claritin) 10 mg DAILY PO Last administered on 05/06/17 10:05; Admin Dose 10 MG; Start 04/26/17 at 09:00 Megestrol Acetate (Megace) 40 mg DAILY PO Last administered on 05/06/17 10:05 ; Admin Dose 40 MG; Start 04/26/17 at 09:00 Tamsulosin HCl (Flomax) 0.4 mg HS PO Last administered on 05/06/17 21:33; Admin Dose 0.4 MG; Start 04/25/17 at 21:00 Diagnostic Test (Pha) (Accu-Chek) 1 ea 02 XX Last administered on 05/04/17 02: 00; Admin Dose 1 EA; Start 04/26/17 at 02:00 Miscellaneous Information 1 ea NOTE XX ; Start 04/25/17 at 19:00 Glucose (Glutose) 15 gm Q15M PRN PO DECREASED GLUCOSE; Start 04/25/17 at 19:00 Glucose (Glutose) 22.5 gm Q15M PRN PO DECREASED GLUCOSE; Start 04/25/17 at 19: 00 Dextrose (D50w Syringe) 25 ml Q15M PRN IV DECREASED GLUCOSE Last administered on 04/28/17 08:08; Admin Dose 25 ML; Start 04/25/17 at 19:00 Dextrose (D50w Syringe) 50 ml Q15M PRN IV DECREASED GLUCOSE; Start 04/25/17 at 19:00 Glucagon (Glucagen) 1 mg Q15M PRN IM DECREASED GLUCOSE; Start 04/25/17 at 19:00 Glucose (Glutose) 15 gm Q15M PRN BUCCAL DECREASED GLUCOSE; Start 04/25/17 at 19 :00 Ciprofloxacin HCl (Ciloxan 0.3% Oph Oint) 1 applic BID RIGHT EYE Last administered on 05/06/17 21:33; Admin Dose 1 APPLIC; Start 04/25/17 at 21:00 Lansoprazole (Prevacid) 30 mg DAILY@06 PO Last administered on 05/06/17 06:05 ; Admin Dose 30 MG; Start 05/01/17 at 06:00 Hydroxyzine HCl (Atarax) 25 mg Q8H PRN PO ITCHING Last administered on 20:46; Admin Dose 25 MG; Start 04/30/17 at 16:30 Calcitriol (Rocaltrol) 0.25 mcg DAILY PO Last administered on 05/06/17 10:04; Admin Dose 0.25 MCG; Start 05/04/17 at 16:00 Cholecalciferol (Vitamin D) 2,000 unit DAILY PO ; Start 05/07/17 at 09:00 DENVER ANTONY MD May 06, 2017 22:21
[2017-05-07] VITALS (20 sets, daily range): BP systolic 106–130; BP diastolic 53–70; PULSE 75–114; RESP 16–18
[2017-05-07] MEDS: ACCU-CHEK XX SCH (02:00)
[2017-05-07] MEDS: LANSOPRAZOLE 30 MG CAP PO SCH ×2 (06:00→06:07)
[2017-05-07 08:06] LABS: BASOPHIL # 0.1 10^3/ul (0.0-0.1); BASOPHILS % 0.6 % (0.0-2.0); EOSINOPHILS # 0.6 10^3/ul (0.0-0.5); EOSINOPHILS % 7.7 % (0.0-7.0); HEMATOCRIT 30.7 % (42.0-52.0); LYMPHOCYTES # 1.1 10^3/ul (0.8-2.9); LYMPHOCYTES % 14.4 % (15.0-51.0); MEAN CORPUSCULAR HEMOGLOBIN 26.4 pg (29.0-33.0); MEAN CORPUSCULAR HGB CONC 29.3 g/dl (32.0-37.0); MEAN PLATELET VOLUME 9.7 fl (7.4-10.4); MONOCYTE # 0.8 10^3/ul (0.3-0.9); MONOCYTES % 9.8 % (0.0-11.0); NEUTROPHIL # 5.3 10^3/ul (1.6-7.5); NEUTROPHILS % 67.1 % (39.0-77.0); PLATELET COUNT 224 10^3/UL (140-415); RED BLOOD COUNT 3.41 10^6/ul (4.70-6.10); RED CELL DISTRIBUTION WIDTH 17.4 % (11.5-14.5); WHITE BLOOD COUNT 7.9 10^3/ul (4.8-10.8)
[2017-05-07 08:34] LABS: ALBUMIN 1.8 g/dl (3.3-4.9); CALCIUM 6.9 mg/dl (8.4-10.2); CREATININE 7.39 mg/dl (0.61-1.24); MAGNESIUM 2.1 mg/dl (1.7-2.5); PHOSPHORUS 5.1 mg/dl (2.5-4.9)
[2017-05-07] MEDS: INSULIN ASPART [NOVOLOG] 3 ML PEN SC SCH ×4 (09:43→20:30)
[2017-05-07] MEDS: DONEPEZIL 5 MG TAB PO SCH (13:20)
[2017-05-07] MEDS: FOLIC ACID 1 MG TAB PO SCH (13:21)
[2017-05-07] MEDS: CHOLECALCIFEROL 2,000 UNIT CAP PO SCH (13:21)
[2017-05-07] MEDS: MEGESTROL 40 MG TAB PO SCH (13:21)
[2017-05-07] MEDS: LORATADINE 10 MG TAB PO SCH (13:21)
[2017-05-07] MEDS: CALCITRIOL 0.25 MCG CAP PO SCH (13:21)
[2017-05-07] MEDS: CIPROFLOXACIN 0.3% 3.5 GM OPH OINT RIGHT EYE SCH (13:22)
--- NOTE | 2017-05-07 18:02 | RADRPT ---
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 Physician: TYLER MADDEN Quality: Technically Difficult Study Procedures: Transthoracic echocardiogram with complete 2D, M-Mode, and doppler examination. Indications: Tachycardia. 2D/M Mode Doppler Measurement Value Normal Ranges Measurement Value Normal Ranges LVIDd 2D 3.3 3.5 - 5.6 cm YANIRA Vmax 0.8 cm2 LVIDs 2D 2.3 2.1 - 4.1 cm YANIRA VTI 0.9 cm2 FS 2D 29.6 % AV Mean Logan 1.9 m/sec LVPWd 2D 1.6 0.6 - 1.1 cm AV Mean PG 18.0 mmHg IVSd 2D 1.7 0.6 - 1.1 cm AV Peak Logan 2.9 m/sec IVS/LVPW 2D 1.0 AV Peak PG 34.0 mmHg AoR Diam 2D 2.6 2.0 - 3.7 cm AV VTI 56.7 cm LA/Ao 2D 2 0 - 1 LVOT Mean Logan 0.6 m/sec EDV 2D 35.3 cm3 LVOT Mean PG 2.0 mmHg ESV 2D 12.3 cm3 LVOT Peak Logan 0.9 m/sec LA Dimen 2D 4.6 2.3 - 4.0 cm LVOT Peak PG 3.0 mmHg LVOT Diam 1.8 cm LVOT VTI 19.3 cm LVOT Area 2.5 cm2 MV E Peak Logan 1.4 m/sec MV Decel Time 148 msec TR Peak Logan 2.2 m/sec TR Peak PG 19.0 mmHg RVSP 29.0 mmHg Findings Left Ventricle: Normal left ventricular systolic function. Normal left ventricular cavity size. Left ventricle not well visualized. Moderate concentric left ventricular hypertrophy. Ejection fraction is visually estimated at 60 %. Abnormal Diastolic Function. Right Ventricle: Normal right ventricular size. Normal right ventricular systolic function. Pacemaker right heart. Left Atrium: There is moderate enlargement of left atrium. Right Atrium: The right atrium is normal in size. Mitral Valve: Mitral valve is not well visualized. Mild mitral leaflet calcification. Mild mitral annular calcification. Trace mitral regurgitation. Aortic Valve: Aortic valve not well visualized. Moderate aortic stenosis. Aortic valve Max velocity 2.90 m/sec. Max PG 34.00 mmHg. Mean PG 18.00 mmHg. Aortic cusps appear moderately calcified. Tricuspid Valve: Normal appearance of the tricuspid valve. Tricuspid valve not well visualized. Estimated peak PA systolic pressure 29 mmHg. There is mild tricuspid regurgitation. Pulmonic Valve: Pulmonic valve not well visualized. There is trace pulmonic regurgitation. Pericardium: Normal pericardium with no significant pericardial effusion. Aorta: Normal aortic root. IVC: Normal size and no respiratory collapse consistent with elevated right atrial pressure. Conclusions 1.Normal left ventricular systolic function. Normal left ventricular cavity size. Left ventricle not well visualized. Moderate concentric left ventricular hypertrophy. Ejection fraction is visually estimated at 60 %. Abnormal Diastolic Function. 2.Mitral valve is not well visualized. Mild mitral leaflet calcification. Mild mitral annular calcification. Trace mitral regurgitation. 3.Aortic valve not well visualized. Moderate aortic stenosis. Aortic valve Max velocity 2.90 m/sec. Max PG 34.00 mmHg. Mean PG 18.00 mmHg. Aortic cusps appear moderately calcified. 4.Normal appearance of the tricuspid valve. Tricuspid valve not well visualized. Estimated peak PA systolic pressure 29 mmHg. There is mild tricuspid regurgitation. 5.very suboptimal study. Electronically Signed By: Steven Howard 07-May-2017 18:01:37 -0700 Patient Name: TAMANNA LAWSON Study Date: 07-May-2017 [id number]
--- NOTE | 2017-05-07 20:02 | PN ---
Date/Time of Note Date/Time of Note DATE: 05/07/17 TIME: 20:00 Assessment/Plan VTE Prophylaxis VTE Prophylaxis Intervention: SCD's Lines/Catheters IV Catheter Type (from Nrs): Permacath Urinary Cath still in place: No Assessment/Plan Chief Complaint/Hosp Course Assessment/Plan 1. Severe anemia secondary to CKD - H/H remains stable and no acute signs of bleeding - EGD did not show acute GI source of bleed, did see nasopharyngeal clot, however very unlikely nose bleed is cause of severe anemia. - will continue to monitor 2. ESRD, DD, HD - Was not able to performed HD this am again due to hypotension and lethargy - K and Mg stable 3. Left thigh pain - No reported injury, trauma, ecchymosis, or erythema - US LLE negative for DVT and Xray negative for any acute issues - Vit D 1-25 level very low <12 and awaiting Vit D 25 levels. Started on Vit D 2000 units daily but may need high dose 50K weekly for 8 weeks 4. Dyslipidemia - on statin 5. BPH 6. Dementia, on Aricept 7. HTN - controlled 8. Tachycardia - Will order PRN metoprolol to keep hr <110 -cardiology consulted 9. Hypocalcemia - Started on Calcitrol. Will monitor 10. Vit D deficiency - Awaiting Vit D 25 results but Vit D 1-25 very low. Will started on 2K daily 11. Disposition - Patients family still adamant on taking patient home with services once stable for d/c -patient very lethargic and not motivated. poor PO intake Problems: Subjective 24 Hr Interval Summary Free Text/Dictation no acute change, very lethargic Exam/Review of Systems Vital Signs Vitals Vital Signs Date Time Temp Pulse Resp B/P Pulse Ox O2 Delivery O2 Flow Rate FiO2 05/07/17 19:48 98.0 57 18 127/56 95 05/07/17 08:10 Nasal Cannula 2.0 Intake and Output 05/06/17 05/06/17 05/07/17 15:00 23:00 07:00 Intake Total 200 ml 400 ml Balance 200 ml 400 ml Exam General: Resting comfortably. opening eyes to voice and responding to questions Head: Normocephalic atraumatic Eyes: EOMI, pupils reactive to light Neck: Supple Respiratory: Clear to auscultation bilaterally Cardiovascular: regular rate, no obvious murmurs. Permanent cath in place R chest wall Gastrointestinal: non-tender to palpation, bowel sounds heard. Neurological: Moves all extremities spontaneously ext: tenderness left upper thigh with palpation. No signs of trauma, ecchymosis, or erythema Results Result Diagram: 05/07/17 0713 05/07/17 0713 Results 24 hrs Laboratory Tests Test 05/06/17 21:29 05/06/17 21:31 05/07/17 07:13 05/07/17 09:43 Bedside Glucose 101 103 128 White Blood Count 7.9 Red Blood Count 3.41 L Hemoglobin 9.0 L Hematocrit 30.7 L Mean Corpuscular Volume 90.0 Mean Corpuscular Hemoglobin 26.4 L Mean Corpuscular Hemoglobin Concent 29.3 L Red Cell Distribution Width 17.4 H Platelet Count 224 Mean Platelet Volume 9.7 Neutrophils % 67.1 Lymphocytes % 14.4 L Monocytes % 9.8 Eosinophils % 7.7 H Basophils % 0.6 Nucleated Red Blood Cells % 0.0 Neutrophils # 5.3 Lymphocytes # 1.1 Monocytes # 0.8 Eosinophils # 0.6 H Basophils # 0.1 Nucleated Red Blood Cells # 0.0 Sodium Level 144 Potassium Level 5.0 Chloride Level 108 Carbon Dioxide Level 32 H Anion Gap 9 Blood Urea Nitrogen 50 H Creatinine 7.39 H Glucose Level 98 Calcium Level 6.9 L Phosphorus Level 5.1 H Magnesium Level 2.1 Albumin 1.8 L Test 05/07/17 13:01 05/07/17 18:06 Bedside Glucose 107 98 Medications Medications Current Medications Ondansetron HCl (Zofran Inj) 4 mg Q6H PRN IV NAUSEA AND/OR VOMITING; Start at 18:00 Acetaminophen (Tylenol Tab) 650 mg Q6H PRN PO PAIN LEVEL 1-3 OR FEVER Last administered on 05/04/17t 20:45; Admin Dose 650 MG; Start 04/25/17 at 18:00 Acetaminophen/ Hydrocodone Bitart ([place] (5/325)) 1 tab Q6H PRN PO MODERATE PAIN LEVEL 4-6; Start 04/25/17 at 18:00 Morphine Sulfate (morphine) 2 mg Q4H PRN IV SEVERE PAIN LEVEL 7-10; Start 04/25 at 18:00 Docusate Sodium (Colace) 100 mg Q12H PRN PO CONSTIPATION; Start 04/25/17 at 18: 00 Lorazepam (Ativan) 0.5 mg Q6H PRN IV ANXIETY; Start 04/25/17 at 18:00 Hydralazine HCl (Apresoline) 10 mg Q6H PRN IV ELEVATED BLOOD PRESSURE; Start at 18:00 Nitroglycerin (Nitroglycerin (Sl Tab) 0.4 Mg) 1 tab Q5M PRN SL ANGINA; Start at 18:00 Atorvastatin Calcium (Lipitor) 20 mg HS PO Last administered on 05/06/17 21:33 ; Admin Dose 20 MG; Start 04/25/17 at 21:00 Donepezil HCl (Aricept) 5 mg DAILY PO Last administered on 05/07/17 13:20; Admin Dose 5 MG; Start 04/26/17 at 09:00 Famotidine (Pepcid) 20 mg Q24H PO Last administered on 04/25/17 21:43; Admin Dose 20 MG; Start 04/25/17 at 21:00; Status Future Hold Folic Acid (Folic Acid) 1 mg DAILY PO Last administered on 05/07/17 13:21; Admin Dose 1 MG; Start 04/26/17 at 09:00 Furosemide (Lasix) 20 mg DAILY PO ; Start 04/26/17 at 09:00; Status Future Hold Loratadine (Claritin) 10 mg DAILY PO Last administered on 05/07/17 13:21; Admin Dose 10 MG; Start 04/26/17 at 09:00 Megestrol Acetate (Megace) 40 mg DAILY PO Last administered on 05/07/17 13:21 ; Admin Dose 40 MG; Start 04/26/17 at 09:00 Tamsulosin HCl (Flomax) 0.4 mg HS PO Last administered on 05/06/17 21:33; Admin Dose 0.4 MG; Start 04/25/17 at 21:00 Diagnostic Test (Pha) (Accu-Chek) 1 ea 02 XX Last administered on 05/04/17 02: 00; Admin Dose 1 EA; Start 04/26/17 at 02:00 Miscellaneous Information 1 ea NOTE XX ; Start 04/25/17 at 19:00 Glucose (Glutose) 15 gm Q15M PRN PO DECREASED GLUCOSE; Start 04/25/17 at 19:00 Glucose (Glutose) 22.5 gm Q15M PRN PO DECREASED GLUCOSE; Start 04/25/17 at 19: 00 Dextrose (D50w Syringe) 25 ml Q15M PRN IV DECREASED GLUCOSE Last administered on 04/28/17 08:08; Admin Dose 25 ML; Start 04/25/17 at 19:00 Dextrose (D50w Syringe) 50 ml Q15M PRN IV DECREASED GLUCOSE; Start 04/25/17 at 19:00 Glucagon (Glucagen) 1 mg Q15M PRN IM DECREASED GLUCOSE; Start 04/25/17 at 19:00 Glucose (Glutose) 15 gm Q15M PRN BUCCAL DECREASED GLUCOSE; Start 04/25/17 at 19 :00 Ciprofloxacin HCl (Ciloxan 0.3% Oph Oint) 1 applic BID RIGHT EYE Last administered on 05/07/17 13:22; Admin Dose 1 APPLIC; Start 04/25/17 at 21:00 Lansoprazole (Prevacid) 30 mg DAILY@06 PO Last administered on 05/06/17 06:05 ; Admin Dose 30 MG; Start 05/01/17 at 06:00 Hydroxyzine HCl (Atarax) 25 mg Q8H PRN PO ITCHING Last administered on 20:46; Admin Dose 25 MG; Start 04/30/17 at 16:30 Calcitriol (Rocaltrol) 0.25 mcg DAILY PO Last administered on 05/07/17 13:21; Admin Dose 0.25 MCG; Start 05/04/17 at 16:00 Cholecalciferol (Vitamin D) 2,000 unit DAILY PO Last administered on 05/07/17 13:21; Admin Dose 2,000 UNIT; Start 05/07/17 at 09:00 Metoprolol Tartrate (Lopressor) 12.5 mg BID PO ; Start 05/07/17 at 21:00 TYLER MADDEN May 07, 2017 20:02
[2017-05-07] MEDS: TAMSULOSIN (SR) 0.4 MG CAP PO SCH (20:30)
[2017-05-07] MEDS: ATORVASTATIN 20 MG TAB PO SCH (20:30)
[2017-05-07] MEDS: METOPROLOL 25 MG TAB PO SCH (20:31)
[2017-05-08] VITALS (17 sets, daily range): BP systolic 106–131; BP diastolic 55–68; PULSE 66–123; RESP 16–21
[2017-05-08] MEDS: ACCU-CHEK XX SCH (02:00)
[2017-05-08] MEDS: DEXTROSE 50% 50 ML SYRINGE IV PRN (04:58)
[2017-05-08] MEDS ORDERED: SOD CHLORIDE 0.9% 250 ML IV ONE (05:00)
[2017-05-08] MEDS: ALBUMIN HUMAN 25% 100 ML IV SCH ×3 (05:03→06:22)
--- NOTE | 2017-05-08 05:39 | CONS ---
DATE OF ADMISSION: 04/25/2017 DATE OF CONSULTATION: 05/07/2017 REFERRING PHYSICIAN: Dr. Valle. REASON FOR CONSULTATION: Arrhythmia. CHIEF COMPLAINT: Severe anemia. HISTORY OF PRESENT ILLNESS: Thank you for this referral. History obtained from the patient's chart , discussion with Dr. Valle, and discussion with the staff, discussion with the patient's family membe r at the bedside including his [id number]. This is a pleasant 89-year-old gentleman with multi ple complicated medical history who was brought into the emergency room because of severe anemia fro dialysis unit. The patient was noted to have a hemoglobin of 6. ____ been treated for multiple d isorders since he has been in the hospital. He has been noted to have intermittent arrhythmia for w hich I was kindly asked to evaluate and treat. Rhythm strip was reviewed. He has had frequent PVCs and bigeminies mostly during dialysis. He has also had episodes of paroxysmal atrial fibrillation with rapid ventricular response as well too. The patient himself does not verbalize. ____ report an y chest pain or pressure, palpitations to me. PAST MEDICAL HISTORY: History of sick sinus syndrome, status post permanent pacemaker. Family at t his point does not know which company he has had it checked apparently within the past month, has be en normal. Also renal failure on dialysis, history of CA apparently many years ago, history of strok e many years ago, history of dyslipidemia, dementia, diabetes, hypertension. MEDICATIONS: Medical reconciliation, personally reviewed. SURGICAL HISTORY: History of dialysis catheter placement, pacemaker placement a few years ago. SOCIAL HISTORY: The patient is a former smoker. Does not smoke or drink at this point. FAMILY HISTORY: No reported coronary artery disease. ALLERGIES: NO REPORTED ALLERGIES. REVIEW OF SYSTEMS: As above-mentioned, patient does not verbalize. PHYSICAL EXAMINATION: VITAL SIGNS: Temperature 98, heart rate currently 80s, blood pressure 110/70, respiratory rate of 1 8. HEENT: Normocephalic, atraumatic. Thin, cachectic gentleman. EYES: Pupils are equal. CARDIOVASCULAR: Regular rate and rhythm. PULMONARY: Anteriorly mild rhonchi. GASTROINTESTINAL: Soft, nontender. EXTREMITIES: No significant lower extremity edema. NEUROLOGIC: Awake and alert. Upon answering ____. PSYCHIATRIC: Appears to be calm. EKG done on 04/25/2017 shows sinus tachycardia with right bundle branch block, nonspecific ST abnorm ality. Echocardiogram was done which was personally reviewed, which was a very tedious study, eject ion fraction is probably normal at 60%. Aortic valve was not well visualized, but appeared to be ca lcified with probably moderate aortic stenosis. Laboratory, most recent one showed WBC 7.9, hemoglo bin 9, platelets 224. Hemoglobin on admission was 7.3, sodium 144, potassium 5, BUN of 50, creatini ne 7.39, glucose 188, albumin is 1.8. ASSESSMENT AND PLAN: 1. Paroxysmal atrial fibrillation. 2. Ventricular arrhythmia and frequent PVCs. 3. Renal failure on dialysis. 4. History of myocardial infarction. 5. History of cerebrovascular accident. 6. Aortic stenosis. 7. Severe anemia. 8. Abnormal EKG with sick sinus syndrome status post permanent pacemaker, status post hypertension, currently mostly hypotensive. 9. Dyslipidemia, on statin. 10. Dementia, on Aricept. RECOMMENDATIONS: I will start the patient on low dose of beta felix to see if he can tolerate it. Family to bring the pacemaker to have it interrogated. He is not a candidate for anticoagulation given his severe anemia, unfortunately. Nutritional support, respiratory care will be continued. Ap pear to be ____ with severely low albumin. Dialysis as per renal. We will continue to follow along with you. Thank you for this referral. Code status still FULL CODE. Dictated By: MELVIN BRODERICK MD AV/DARON Conf#: [id number] DID#: [id number]
[2017-05-08 05:43] LABS: ABNORMAL IP MESSAGE 1; BASOPHILS % 0.3 % (0.0-2.0); EOSINOPHILS # 0.1 10^3/ul (0.0-0.5); EOSINOPHILS % 0.8 % (0.0-7.0); HEMATOCRIT 30.4 % (42.0-52.0); HEMOGLOBIN 8.8 g/dl (14.0-18.0); LYMPHOCYTES # 0.2 10^3/ul (0.8-2.9); LYMPHOCYTES % 2.3 % (15.0-51.0); MEAN CORPUSCULAR HEMOGLOBIN 26.6 pg (29.0-33.0); MEAN CORPUSCULAR HGB CONC 28.9 g/dl (32.0-37.0); MEAN CORPUSCULAR VOLUME 91.8 fl (82.0-101.0); MEAN PLATELET VOLUME 9.8 fl (7.4-10.4); MONOCYTE # 0.1 10^3/ul (0.3-0.9); MONOCYTES % 1.3 % (0.0-11.0); NEUTROPHIL # 9.3 10^3/ul (1.6-7.5); NEUTROPHILS % 94.7 % (39.0-77.0); PLATELET COUNT 199 10^3/UL (140-415); POSITIVE DIFF @See below; RED BLOOD COUNT 3.31 10^6/ul (4.70-6.10); RED CELL DISTRIBUTION WIDTH 17.4 % (11.5-14.5); WHITE BLOOD COUNT 9.9 10^3/ul (4.8-10.8)
[2017-05-08] MEDS: LANSOPRAZOLE 30 MG CAP PO SCH ×2 (06:00→06:19)
[2017-05-08 06:06] LABS: ALBUMIN 1.8 g/dl (3.3-4.9); CREATININE 4.8 mg/dl (0.61-1.24); MAGNESIUM 1.9 mg/dl (1.7-2.5); PHOSPHORUS 4.3 mg/dl (2.5-4.9); POTASSIUM 3.5 mmol/L (3.5-5.1)
[2017-05-08] MEDS: INSULIN ASPART [NOVOLOG] 3 ML PEN SC SCH ×4 (08:00→21:00)
[2017-05-08] MEDS: CALCITRIOL 0.25 MCG CAP PO SCH (09:39)
[2017-05-08] MEDS: MEGESTROL 40 MG TAB PO SCH (09:39)
[2017-05-08] MEDS: CHOLECALCIFEROL 2,000 UNIT CAP PO SCH (09:40)
[2017-05-08] MEDS: LORATADINE 10 MG TAB PO SCH (09:40)
[2017-05-08] MEDS: DONEPEZIL 5 MG TAB PO SCH (09:40)
[2017-05-08] MEDS: FOLIC ACID 1 MG TAB PO SCH (09:40)
[2017-05-08] MEDS: METOPROLOL 25 MG TAB PO SCH ×2 (09:41→21:18)
[2017-05-08] MEDS: MIDODRINE 5 MG TAB PO SCH ×3 (09:42→17:45)
--- NOTE | 2017-05-08 14:18 | PN ---
Date/Time of Note Date/Time of Note DATE: 05/08/17 TIME: 14:02 Assessment/Plan VTE Prophylaxis VTE Prophylaxis Intervention: SCD's Lines/Catheters IV Catheter Type (from Nrs): [place] Urinary Cath still in place: No Assessment/Plan Assessment/Plan 1. Anemia, chronic, CKD related, epogen 2. ESRD, DD, on HD 3. fail to thrive, malnutrition with hypoalbuminemia, megace, encourage oral intake 4. Paroxysmal atrial fibrillation, sinus rhythm, on metoprolol, not a candidate for anticoagulant 5. Frequent PVCs, better on metoprolol 6. History of cerebrovascular accident. 7. Aortic stenosis. 8. Sick sinus syndrome status post permanent pacemaker, status post hypertension, currently mostly hypotensive. 9. Dyslipidemia, on statin. 10. Dementia, on Aricept. 11. Long talk with the patient today, poor prognosis, discussed about hospice care, no ready yet Exam/Review of Systems Vital Signs Vitals Vital Signs Date Time Temp Pulse Resp B/P Pulse Ox O2 Delivery O2 Flow Rate FiO2 05/08/17 11:49 98.0 73 16 114/68 100 05/08/17 08:00 Nasal Cannula 5.0 Intake and Output 05/07/17 05/07/17 05/08/17 15:00 23:00 07:00 Intake Total 500 ml 100 ml 150 ml Output Total 2500 ml Balance -2000 ml 100 ml 150 ml Exam Constitutional: alert, frail Head: atraumatic, normocephalic Eyes: EOMI, PERRL, nl conjunctiva, nl lids, nl sclera ENMT: mucosa pink and moist, nl external ears & nose, nl lips & teeth, nl nasal mucosa & septum Neck: non-tender, supple Respiratory: clear to auscultation, normal air movement, No congested cough, No crackles/rales, No diminished breath sounds, No intercostal retraction, No labored breathing, No other, No respirations, No tactile fremitus, No wheezing Cardiovascular: nl pulses, regular rate and rhythm, No S3, No S4, No bruits, No diastolic murmur, No edema, No gallop, No irregular rhythm, No jugular venous distention (JVD), No murmurs/extra sounds, No other, No rub, No systolic murmur Gastrointestinal: nl liver, spleen, non-tender, soft, No ascites, No bowel sounds, No distended, No firm, No hepatomegaly, No mass , No other, No rebound or guarding, No splenomegaly, No surgical scars, No tender Musculoskeletal: nl extremities to inspection Extremities: normal pulses, No calf tenderness, No clubbing, No cyanosis, No edema, No other, No palpable cord, No pitting pedal edema, No tenderness Neurological: [employer] II-XII intact, nl mental status Results Result Diagram: 05/08/1718 05/08/17 0519 Results 24 hrs Laboratory Tests Test 05/07/17 18:06 05/07/17 20:28 05/08/17 04:50 05/08/17 05:18 Bedside Glucose 98 106 70 White Blood Count 9.9 # Red Blood Count 3.31 L Hemoglobin 8.8 L Hematocrit 30.4 L Mean Corpuscular Volume 91.8 Mean Corpuscular Hemoglobin 26.6 L Mean Corpuscular Hemoglobin Concent 28.9 L Red Cell Distribution Width 17.4 H Platelet Count 199 Mean Platelet Volume 9.8 Neutrophils % 94.7 H Lymphocytes % 2.3 L Monocytes % 1.3 Eosinophils % 0.8 Basophils % 0.3 Nucleated Red Blood Cells % 0.0 Neutrophils # 9.3 H Lymphocytes # 0.2 L Monocytes # 0.1 L Eosinophils # 0.1 Basophils # 0.0 Nucleated Red Blood Cells # 0.0 Test 05/08/17 05:19 05/08/17 08:08 05/08/17 12:34 Sodium Level 147 H Potassium Level 3.5 Chloride Level 110 Carbon Dioxide Level 29 Anion Gap 12 Blood Urea Nitrogen 28 #H Creatinine 4.80 #H Glucose Level 180 Calcium Level 7.0 L Phosphorus Level 4.3 Magnesium Level 1.9 Troponin I 0.134 *H Albumin 1.8 L Bedside Glucose 129 124 Medications Medications Current Medications Ondansetron HCl (Zofran Inj) 4 mg Q6H PRN IV NAUSEA AND/OR VOMITING; Start at 18:00 Acetaminophen (Tylenol Tab) 650 mg Q6H PRN PO PAIN LEVEL 1-3 OR FEVER Last administered on 05/04/17t 20:45; Admin Dose 650 MG; Start 04/25/17 at 18:00 Acetaminophen/ Hydrocodone Bitart ([place] (5/325)) 1 tab Q6H PRN PO MODERATE PAIN LEVEL 4-6; Start 04/25/17 at 18:00 Morphine Sulfate (morphine) 2 mg Q4H PRN IV SEVERE PAIN LEVEL 7-10; Start 04/25 at 18:00 Docusate Sodium (Colace) 100 mg Q12H PRN PO CONSTIPATION; Start 04/25/17 at 18: 00 Lorazepam (Ativan) 0.5 mg Q6H PRN IV ANXIETY; Start 04/25/17 at 18:00 Hydralazine HCl (Apresoline) 10 mg Q6H PRN IV ELEVATED BLOOD PRESSURE; Start at 18:00 Nitroglycerin (Nitroglycerin (Sl Tab) 0.4 Mg) 1 tab Q5M PRN SL ANGINA; Start at 18:00 Atorvastatin Calcium (Lipitor) 20 mg HS PO Last administered on 05/07/17 20:30 ; Admin Dose 20 MG; Start 04/25/17 at 21:00 Donepezil HCl (Aricept) 5 mg DAILY PO Last administered on 05/08/17 09:40; Admin Dose 5 MG; Start 04/26/17 at 09:00 Famotidine (Pepcid) 20 mg Q24H PO Last administered on 04/25/17 21:43; Admin Dose 20 MG; Start 04/25/17 at 21:00; Status Future Hold Folic Acid (Folic Acid) 1 mg DAILY PO Last administered on 05/08/17 09:40; Admin Dose 1 MG; Start 04/26/17 at 09:00 Furosemide (Lasix) 20 mg DAILY PO ; Start 04/26/17 at 09:00; Status Future Hold Loratadine (Claritin) 10 mg DAILY PO Last administered on 05/08/17 09:40; Admin Dose 10 MG; Start 04/26/17 at 09:00 Megestrol Acetate (Megace) 40 mg DAILY PO Last administered on 05/08/17 09:39 ; Admin Dose 40 MG; Start 04/26/17 at 09:00 Tamsulosin HCl (Flomax) 0.4 mg HS PO Last administered on 05/07/17 20:30; Admin Dose 0.4 MG; Start 04/25/17 at 21:00 Diagnostic Test (Pha) (Accu-Chek) 1 ea 02 XX Last administered on 05/04/17 02: 00; Admin Dose 1 EA; Start 04/26/17 at 02:00 Miscellaneous Information 1 ea NOTE XX ; Start 04/25/17 at 19:00 Glucose (Glutose) 15 gm Q15M PRN PO DECREASED GLUCOSE; Start 04/25/17 at 19:00 Glucose (Glutose) 22.5 gm Q15M PRN PO DECREASED GLUCOSE; Start 04/25/17 at 19: 00 Dextrose (D50w Syringe) 25 ml Q15M PRN IV DECREASED GLUCOSE Last administered on 05/08/17 04:58; Admin Dose 25 ML; Start 04/25/17 at 19:00 Dextrose (D50w Syringe) 50 ml Q15M PRN IV DECREASED GLUCOSE; Start 04/25/17 at 19:00 Glucagon (Glucagen) 1 mg Q15M PRN IM DECREASED GLUCOSE; Start 04/25/17 at 19:00 Glucose (Glutose) 15 gm Q15M PRN BUCCAL DECREASED GLUCOSE; Start 04/25/17 at 19 :00 Lansoprazole (Prevacid) 30 mg DAILY@06 PO Last administered on 05/06/17 06:05 ; Admin Dose 30 MG; Start 05/01/17 at 06:00 Hydroxyzine HCl (Atarax) 25 mg Q8H PRN PO ITCHING Last administered on 20:46; Admin Dose 25 MG; Start 04/30/17 at 16:30 Calcitriol (Rocaltrol) 0.25 mcg DAILY PO Last administered on 05/08/17 09:39 ; Admin Dose 0.25 MCG; Start 05/04/17 at 16:00 Cholecalciferol (Vitamin D) 2,000 unit DAILY PO Last administered on 09:40; Admin Dose 2,000 UNIT; Start 05/07/17 at 09:00 Metoprolol Tartrate (Lopressor) 12.5 mg BID PO Last administered on 05/08/17 09:41; Admin Dose 12.5 MG; Start 05/07/17 at 21:00 Midodrine (Proamatine) 5 mg TID@,,17 PO Last administered on 05/08/17 12: 57; Admin Dose 5 MG; Start 05/08/17 at 09:00; Stop 05/09/17 at 20:00 KURT MCKINNON MD May 08, 2017 14:12
--- NOTE | 2017-05-08 19:01 | CONS ---
Date/Time of Note Date/Time of Note DATE: 05/08/17 TIME: 18:55 Consult Date/Type/Reason Admit Date/Time Apr 25, 2017 at 16:42 Initial Consult Date 04/26/17 Type of Consultation: cardiology Ordering Provider: CARINA LINCOLN Subjective S: D/W STAFF and rhythm was reviewed. pt with wide complex tachycardia over night no reports of chest pain or pressure; pt does not answer my questions; O: General: thin . elderly no acute distress HEENT: NC/AT. pupils are equal. round. NECK: NO JVD. no stridor. CV: RRR. systolic murmur; no gallop or rubs. chest s/p PPM Left side. PULM: no wheezing . but mild rhonchi. GI: SOFT, NT, ND, no rebound or guarding Extremity: trace B/L LE edema. no clubbing. neuro: awake but does not answer questions. Psych: calm and pleasant rectal: deferred : normal echo personally reviewed: 1. Normal left ventricular systolic function. Normal left ventricular cavity size. Left ventricle not well visualized. Moderate concentric left ventricular hypertrophy. Ejection fraction is visually estimated at 60 %. Abnormal Diastolic Function. 2. Mitral valve is not well visualized. Mild mitral leaflet calcification. Mild mitral annular calcification. Trace mitral regurgitation. 3. Aortic valve not well visualized. Moderate aortic stenosis. Aortic valve Max velocity 2.90 m/sec. Max PG 34.00 mmHg. Mean PG 18.00 mmHg. Aortic cusps appear moderately calcified. 4. Normal appearance of the tricuspid valve. Tricuspid valve not well visualized. Estimated peak PA systolic pressure 29 mmHg. There is mild tricuspid regurgitation. 5. very suboptimal study. Objective Vital Signs Date Time Temp Pulse Resp B/P Pulse Ox O2 Delivery O2 Flow Rate FiO2 05/08/17 16:10 98 05/08/17 15:34 98.0 18 119/58 98 05/08/17 08:00 Nasal Cannula 5.0 Intake and Output 05/07/17 05/07/17 05/08/17 15:00 23:00 07:00 Intake Total 500 ml 100 ml 150 ml Output Total 2500 ml Balance -2000 ml 100 ml 150 ml Results/Medications Result Diagram: 05/08/17 0518 05/08/17 0519 Results 24 hrs Laboratory Tests Test 05/07/17 20:28 05/08/17 04:50 05/08/17 05:18 05/08/17 05:19 Bedside Glucose 106 70 White Blood Count 9.9 # Red Blood Count 3.31 L Hemoglobin 8.8 L Hematocrit 30.4 L Mean Corpuscular Volume 91.8 Mean Corpuscular Hemoglobin 26.6 L Mean Corpuscular Hemoglobin Concent 28.9 L Red Cell Distribution Width 17.4 H Platelet Count 199 Mean Platelet Volume 9.8 Neutrophils % 94.7 H Lymphocytes % 2.3 L Monocytes % 1.3 Eosinophils % 0.8 Basophils % 0.3 Nucleated Red Blood Cells % 0.0 Neutrophils # 9.3 H Lymphocytes # 0.2 L Monocytes # 0.1 L Eosinophils # 0.1 Basophils # 0.0 Nucleated Red Blood Cells # 0.0 Sodium Level 147 H Potassium Level 3.5 Chloride Level 110 Carbon Dioxide Level 29 Anion Gap 12 Blood Urea Nitrogen 28 #H Creatinine 4.80 #H Glucose Level 180 Calcium Level 7.0 L Phosphorus Level 4.3 Magnesium Level 1.9 Troponin I 0.134 *H Albumin 1.8 L Test 05/08/17 08:08 05/08/17 12:34 05/08/17 17:22 Bedside Glucose 129 124 126 Medications Current Medications Ondansetron HCl (Zofran Inj) 4 mg Q6H PRN IV NAUSEA AND/OR VOMITING; Start at 18:00 Acetaminophen (Tylenol Tab) 650 mg Q6H PRN PO PAIN LEVEL 1-3 OR FEVER Last administered on 05/04/17t 20:45; Admin Dose 650 MG; Start 04/25/17 at 18:00 Acetaminophen/ Hydrocodone Bitart ([place] (5/325)) 1 tab Q6H PRN PO MODERATE PAIN LEVEL 4-6; Start 04/25/17 at 18:00 Morphine Sulfate (morphine) 2 mg Q4H PRN IV SEVERE PAIN LEVEL 7-10; Start 04/25 at 18:00 Docusate Sodium (Colace) 100 mg Q12H PRN PO CONSTIPATION; Start 04/25/17 at 18: 00 Lorazepam (Ativan) 0.5 mg Q6H PRN IV ANXIETY; Start 04/25/17 at 18:00 Hydralazine HCl (Apresoline) 10 mg Q6H PRN IV ELEVATED BLOOD PRESSURE; Start at 18:00 Nitroglycerin (Nitroglycerin (Sl Tab) 0.4 Mg) 1 tab Q5M PRN SL ANGINA; Start at 18:00 Atorvastatin Calcium (Lipitor) 20 mg HS PO Last administered on 05/07/17 20:30 ; Admin Dose 20 MG; Start 04/25/17 at 21:00 Donepezil HCl (Aricept) 5 mg DAILY PO Last administered on 05/08/17 09:40; Admin Dose 5 MG; Start 04/26/17 at 09:00 Famotidine (Pepcid) 20 mg Q24H PO Last administered on 04/25/17 21:43; Admin Dose 20 MG; Start 04/25/17 at 21:00; Status Future Hold Folic Acid (Folic Acid) 1 mg DAILY PO Last administered on 05/08/17 09:40; Admin Dose 1 MG; Start 04/26/17 at 09:00 Furosemide (Lasix) 20 mg DAILY PO ; Start 04/26/17 at 09:00; Status Future Hold Loratadine (Claritin) 10 mg DAILY PO Last administered on 05/08/17 09:40; Admin Dose 10 MG; Start 04/26/17 at 09:00 Megestrol Acetate (Megace) 40 mg DAILY PO Last administered on 05/08/17 09:39 ; Admin Dose 40 MG; Start 04/26/17 at 09:00 Tamsulosin HCl (Flomax) 0.4 mg HS PO Last administered on 05/07/17 20:30; Admin Dose 0.4 MG; Start 04/25/17 at 21:00 Diagnostic Test (Pha) (Accu-Chek) 1 ea 02 XX Last administered on 05/04/17 02: 00; Admin Dose 1 EA; Start 04/26/17 at 02:00 Miscellaneous Information 1 ea NOTE XX ; Start 04/25/17 at 19:00 Glucose (Glutose) 15 gm Q15M PRN PO DECREASED GLUCOSE; Start 04/25/17 at 19:00 Glucose (Glutose) 22.5 gm Q15M PRN PO DECREASED GLUCOSE; Start 04/25/17 at 19: 00 Dextrose (D50w Syringe) 25 ml Q15M PRN IV DECREASED GLUCOSE Last administered on 05/08/17 04:58; Admin Dose 25 ML; Start 04/25/17 at 19:00 Dextrose (D50w Syringe) 50 ml Q15M PRN IV DECREASED GLUCOSE; Start 04/25/17 at 19:00 Glucagon (Glucagen) 1 mg Q15M PRN IM DECREASED GLUCOSE; Start 04/25/17 at 19:00 Glucose (Glutose) 15 gm Q15M PRN BUCCAL DECREASED GLUCOSE; Start 04/25/17 at 19 :00 Lansoprazole (Prevacid) 30 mg DAILY@06 PO Last administered on 05/06/17 06:05 ; Admin Dose 30 MG; Start 05/01/17 at 06:00 Hydroxyzine HCl (Atarax) 25 mg Q8H PRN PO ITCHING Last administered on 20:46; Admin Dose 25 MG; Start 04/30/17 at 16:30 Calcitriol (Rocaltrol) 0.25 mcg DAILY PO Last administered on 05/08/17 09:39 ; Admin Dose 0.25 MCG; Start 05/04/17 at 16:00 Cholecalciferol (Vitamin D) 2,000 unit DAILY PO Last administered on 09:40; Admin Dose 2,000 UNIT; Start 05/07/17 at 09:00 Metoprolol Tartrate (Lopressor) 12.5 mg BID PO Last administered on 05/08/17 09:41; Admin Dose 12.5 MG; Start 05/07/17 at 21:00 Midodrine (Proamatine) 5 mg TID@,,17 PO Last administered on 05/08/17 17: 45; Admin Dose 5 MG; Start 05/08/17 at 09:00; Stop 05/09/17 at 20:00 Assessment/Plan Chief Complaint/Hosp Course 1. Paroxysmal atrial fibrillation. 2. Ventricular arrhythmia and frequent PVCs and wide complex tachycardia. 3. Renal failure on dialysis. 4. History of myocardial infarction. 5. History of cerebrovascular accident. 6. Aortic stenosis. 7. Severe anemia. 8. Abnormal EKG with sick sinus syndrome status post permanent pacemaker, status post hypertension, currently mostly hypotensive. 9. Dyslipidemia, on statin. 10. Dementia, on Aricept. 11. malnutrition and severe anemia RECOMMENDATIONS: cont beta felix as tolerated. Family to bring the pacemaker to have it interrogated. He is not a candidate for anticoagulation given his severe anemia, unfortunately. cont Nutritional support and respiratory care Dialysis as per renal. Thank you for this referral. Code status still FULL CODE. Problems: MELVIN BRODERICK MD May 08, 2017 19:01
[2017-05-08] MEDS: TAMSULOSIN (SR) 0.4 MG CAP PO SCH (21:17)
[2017-05-08] MEDS: ATORVASTATIN 20 MG TAB PO SCH (21:17)
[2017-05-09] VITALS (19 sets, daily range): BP systolic 89–137; BP diastolic 50–69; PULSE 64–97; RESP 18–20
[2017-05-09] MEDS: ACCU-CHEK XX SCH ×2 (02:00→20:40)
[2017-05-09] MEDS: LANSOPRAZOLE 30 MG CAP PO SCH (05:16)
[2017-05-09] MEDS: INSULIN ASPART [NOVOLOG] 3 ML PEN SC SCH ×4 (08:00→20:40)
--- NOTE | 2017-05-09 08:40 | CONS ---
Date/Time of Note Date/Time of Note DATE: 05/09/17 TIME: 08:39 Consult Date/Type/Reason Admit Date/Time Apr 25, 2017 at 16:42 Initial Consult Date 04/26/17 Type of Consultation: cardiology Ordering Provider: CARINA LINCOLN Subjective S: D/W STAFF and rhythm was reviewed. pt with no VT over night no reports of chest pain or pressure; pt does not answer my questions; O: General: thin . elderly no acute distress HEENT: NC/AT. pupils are equal. round. NECK: NO JVD. no stridor. CV: RRR. systolic murmur; no gallop or rubs. chest s/p PPM Left side. PULM: no wheezing . but mild rhonchi. GI: SOFT, NT, ND, no rebound or guarding Extremity: trace B/L LE edema. no clubbing. neuro: awake but does not answer questions. Psych: calm and pleasant rectal: deferred : normal echo personally reviewed: 1. Normal left ventricular systolic function. Normal left ventricular cavity size. Left ventricle not well visualized. Moderate concentric left ventricular hypertrophy. Ejection fraction is visually estimated at 60 %. Abnormal Diastolic Function. 2. Mitral valve is not well visualized. Mild mitral leaflet calcification. Mild mitral annular calcification. Trace mitral regurgitation. 3. Aortic valve not well visualized. Moderate aortic stenosis. Aortic valve Max velocity 2.90 m/sec. Max PG 34.00 mmHg. Mean PG 18.00 mmHg. Aortic cusps appear moderately calcified. 4. Normal appearance of the tricuspid valve. Tricuspid valve not well visualized. Estimated peak PA systolic pressure 29 mmHg. There is mild tricuspid regurgitation. 5. very suboptimal study. Objective Vital Signs Date Time Temp Pulse Resp B/P Pulse Ox O2 Delivery O2 Flow Rate FiO2 05/09/17 08:34 73 05/09/17 07:53 97.9 18 137/58 97 05/08/17 21:00 Nasal Cannula 5.0 Intake and Output 05/08/17 05/08/17 05/09/17 15:00 23:00 07:00 Intake Total 240 ml Balance 240 ml Results/Medications Result Diagram: 05/08/17 0518 05/08/17 0519 Results 24 hrs Laboratory Tests Test 05/08/17 12:34 05/08/17 17:22 05/08/17 21:14 05/09/17 07:52 Bedside Glucose 124 126 136 110 Medications Current Medications Ondansetron HCl (Zofran Inj) 4 mg Q6H PRN IV NAUSEA AND/OR VOMITING; Start at 18:00 Acetaminophen (Tylenol Tab) 650 mg Q6H PRN PO PAIN LEVEL 1-3 OR FEVER Last administered on 05/04/17 20:45; Admin Dose 650 MG; Start 04/25/17 at 18:00 Acetaminophen/ Hydrocodone Bitart ([place] (5/325)) 1 tab Q6H PRN PO MODERATE PAIN LEVEL 4-6; Start 04/25/17 at 18:00 Morphine Sulfate (morphine) 2 mg Q4H PRN IV SEVERE PAIN LEVEL 7-10; Start 04/25 at 18:00 Docusate Sodium (Colace) 100 mg Q12H PRN PO CONSTIPATION; Start 04/25/17 at 18: 00 Lorazepam (Ativan) 0.5 mg Q6H PRN IV ANXIETY; Start 04/25/17 at 18:00 Hydralazine HCl (Apresoline) 10 mg Q6H PRN IV ELEVATED BLOOD PRESSURE; Start at 18:00 Nitroglycerin (Nitroglycerin (Sl Tab) 0.4 Mg) 1 tab Q5M PRN SL ANGINA; Start at 18:00 Atorvastatin Calcium (Lipitor) 20 mg HS PO Last administered on 05/08/17 21: 17; Admin Dose 20 MG; Start 04/25/17 at 21:00 Donepezil HCl (Aricept) 5 mg DAILY PO Last administered on 05/08/17 09:40; Admin Dose 5 MG; Start 04/26/17 at 09:00 Famotidine (Pepcid) 20 mg Q24H PO Last administered on 04/25/17 21:43; Admin Dose 20 MG; Start 04/25/17 at 21:00; Status Future Hold Folic Acid (Folic Acid) 1 mg DAILY PO Last administered on 05/08/17 09:40; Admin Dose 1 MG; Start 04/26/17 at 09:00 Furosemide (Lasix) 20 mg DAILY PO ; Start 04/26/17 at 09:00; Status Future Hold Loratadine (Claritin) 10 mg DAILY PO Last administered on 05/08/17 09:40; Admin Dose 10 MG; Start 04/26/17 at 09:00 Megestrol Acetate (Megace) 40 mg DAILY PO Last administered on 05/08/17 09:39 ; Admin Dose 40 MG; Start 04/26/17 at 09:00 Tamsulosin HCl (Flomax) 0.4 mg HS PO Last administered on 05/08/17 21:17; Admin Dose 0.4 MG; Start 04/25/17 at 21:00 Diagnostic Test (Pha) (Accu-Chek) 1 ea 02 XX Last administered on 05/04/17 02: 00; Admin Dose 1 EA; Start 04/26/17 at 02:00 Miscellaneous Information 1 ea NOTE XX ; Start 04/25/17 at 19:00 Glucose (Glutose) 15 gm Q15M PRN PO DECREASED GLUCOSE; Start 04/25/17 at 19:00 Glucose (Glutose) 22.5 gm Q15M PRN PO DECREASED GLUCOSE; Start 04/25/17 at 19: 00 Dextrose (D50w Syringe) 25 ml Q15M PRN IV DECREASED GLUCOSE Last administered on 05/08/17 04:58; Admin Dose 25 ML; Start 04/25/17 at 19:00 Dextrose (D50w Syringe) 50 ml Q15M PRN IV DECREASED GLUCOSE; Start 04/25/17 at 19:00 Glucagon (Glucagen) 1 mg Q15M PRN IM DECREASED GLUCOSE; Start 04/25/17 at 19:00 Glucose (Glutose) 15 gm Q15M PRN BUCCAL DECREASED GLUCOSE; Start 04/25/17 at 19 :00 Lansoprazole (Prevacid) 30 mg DAILY@06 PO Last administered on 05/09/17 05:16 ; Admin Dose 30 MG; Start 05/01/17 at 06:00 Hydroxyzine HCl (Atarax) 25 mg Q8H PRN PO ITCHING Last administered on 20:46; Admin Dose 25 MG; Start 04/30/17 at 16:30 Calcitriol (Rocaltrol) 0.25 mcg DAILY PO Last administered on 05/08/17 09:39 ; Admin Dose 0.25 MCG; Start 05/04/17 at 16:00 Cholecalciferol (Vitamin D) 2,000 unit DAILY PO Last administered on 09:40; Admin Dose 2,000 UNIT; Start 05/07/17 at 09:00 Metoprolol Tartrate (Lopressor) 12.5 mg BID PO Last administered on 05/08/17 21:18; Admin Dose 12.5 MG; Start 05/07/17 at 21:00 Midodrine (Proamatine) 5 mg TID@,13,17 PO Last administered on 05/08/17 17: 45; Admin Dose 5 MG; Start 05/08/17 at 09:00; Stop 05/09/17 at 20:00 Assessment/Plan Chief Complaint/Hosp Course 1. Paroxysmal atrial fibrillation. 2. Ventricular arrhythmia and frequent PVCs and wide complex tachycardia. 3. Renal failure on dialysis. 4. History of myocardial infarction. 5. History of cerebrovascular accident. 6. Aortic stenosis. 7. Severe anemia. 8. Abnormal EKG with sick sinus syndrome status post permanent pacemaker, status post hypertension, currently mostly hypotensive. 9. Dyslipidemia, on statin. 10. Dementia, on Aricept. 11. malnutrition and severe anemia RECOMMENDATIONS: cont beta felix as tolerated. Family to bring the pacemaker to have it interrogated. He is not a candidate for anticoagulation given his severe anemia, unfortunately. cont Nutritional support and respiratory care Dialysis as per renal. Thank you for this referral. Code status still FULL CODE. Problems: MELVIN BRODERICK MD May 09, 2017 08:40
[2017-05-09] MEDS: METOPROLOL 25 MG TAB PO SCH ×2 (09:00→20:39)
[2017-05-09] MEDS: LORATADINE 10 MG TAB PO SCH (09:01)
[2017-05-09] MEDS: MEGESTROL 40 MG TAB PO SCH (09:02)
[2017-05-09] MEDS: CHOLECALCIFEROL 2,000 UNIT CAP PO SCH (09:02)
[2017-05-09] MEDS: FOLIC ACID 1 MG TAB PO SCH (09:02)
[2017-05-09] MEDS: DONEPEZIL 5 MG TAB PO SCH (09:02)
[2017-05-09] MEDS: CALCITRIOL 0.25 MCG CAP PO SCH (09:02)
[2017-05-09] MEDS: MIDODRINE 5 MG TAB PO SCH ×3 (09:07→17:22)
[2017-05-09 10:00] LABS: BASOPHILS % 0.5 % (0.0-2.0); EOSINOPHILS # 0.3 10^3/ul (0.0-0.5); EOSINOPHILS % 2.9 % (0.0-7.0); HEMATOCRIT 28.2 % (42.0-52.0); HEMOGLOBIN 8.3 g/dl (14.0-18.0); LYMPHOCYTES # 0.7 10^3/ul (0.8-2.9); LYMPHOCYTES % 8.2 % (15.0-51.0); MEAN CORPUSCULAR HEMOGLOBIN 26.3 pg (29.0-33.0); MEAN CORPUSCULAR HGB CONC 29.4 g/dl (32.0-37.0); MEAN CORPUSCULAR VOLUME 89.5 fl (82.0-101.0); MEAN PLATELET VOLUME 10.3 fl (7.4-10.4); MONOCYTE # 0.5 10^3/ul (0.3-0.9); MONOCYTES % 5.9 % (0.0-11.0); PLATELET COUNT 192 10^3/UL (140-415); RED BLOOD COUNT 3.15 10^6/ul (4.70-6.10); RED CELL DISTRIBUTION WIDTH 17.9 % (11.5-14.5); WHITE BLOOD COUNT 8.5 10^3/ul (4.8-10.8)
[2017-05-09 10:16] LABS: ALBUMIN 1.9 g/dl (3.3-4.9); CALCIUM 6.8 mg/dl (8.4-10.2); CREATININE 5.61 mg/dl (0.61-1.24); PHOSPHORUS 4.1 mg/dl (2.5-4.9)
[2017-05-09 10:39] LABS: POTASSIUM 3.2 mmol/L (3.5-5.1)
[2017-05-09] MEDS ORDERED: POTASSIUM CHLORIDE (SR) 20 MEQ TAB PO STA (13:39)
--- NOTE | 2017-05-09 14:38 | PN ---
Date/Time of Note Date/Time of Note DATE: 05/09/17 TIME: 14:36 Assessment/Plan VTE Prophylaxis VTE Prophylaxis Intervention: SCD's Lines/Catheters IV Catheter Type (from Nrs): PERMACATH Urinary Cath still in place: No Assessment/Plan Assessment/Plan 1. Anemia, chronic, CKD related, epogen 2. ESRD, DD, on HD 3. fail to thrive, malnutrition with hypoalbuminemia, megace, encourage oral intake 4. Paroxysmal atrial fibrillation, sinus rhythm, on metoprolol, not a candidate for anticoagulant 5. Frequent PVCs, better on metoprolol 6. History of cerebrovascular accident. 7. Aortic stenosis. 8. Sick sinus syndrome status post permanent pacemaker, status post hypertension, currently mostly hypotensive. 9. Dyslipidemia, on statin. 10. Dementia, on Aricept. 11. Long talk with the patient's son today about discharge plan. Patient will be discharged home tomorrow with home PT Subjective 24 Hr Interval Summary Free Text/Dictation no distress, alert, but demented Exam/Review of Systems Vital Signs Vitals Vital Signs Date Time Temp Pulse Resp B/P Pulse Ox O2 Delivery O2 Flow Rate FiO2 05/09/17 12:16 83 05/09/17 12:00 Nasal Cannula 5.0 05/09/17 11:42 97.9 18 126/63 97 Intake and Output 05/08/17 05/08/17 05/09/17 15:00 23:00 07:00 Intake Total 240 ml Balance 240 ml Exam Constitutional: alert, frail, non-verbal Head: atraumatic, normocephalic Eyes: EOMI, PERRL, nl conjunctiva, nl lids, nl sclera ENMT: nl external ears & nose, nl lips & teeth, nl nasal mucosa & septum Neck: non-tender, supple Respiratory: clear to auscultation, normal air movement, No congested cough, No crackles/rales, No diminished breath sounds, No intercostal retraction, No labored breathing, No other, No respirations, No tactile fremitus, No wheezing Cardiovascular: nl pulses, regular rate and rhythm, No S3, No S4, No bruits, No diastolic murmur, No edema, No gallop, No irregular rhythm, No jugular venous distention (JVD), No murmurs/extra sounds, No other, No rub, No systolic murmur Gastrointestinal: nl liver, spleen, non-tender, soft, No ascites, No bowel sounds, No distended, No firm, No hepatomegaly, No mass , No other, No rebound or guarding, No splenomegaly, No surgical scars, No tender Musculoskeletal: nl extremities to inspection Extremities: normal pulses, No calf tenderness, No clubbing, No cyanosis, No edema, No other, No palpable cord, No pitting pedal edema, No tenderness Neurological: PERIANESTHESIA MANAGER II-XII intact, confused Skin: nl turgor Lymph: nl lymph nodes Results Result Diagram: 05/09/1793005/09/17930 Results 24 hrs Laboratory Tests Test 05/08/17 17:22 05/08/17 21:14 05/09/17 07:52 05/09/17 09:31 Bedside Glucose 126 136 110 White Blood Count 8.5 Red Blood Count 3.15 L Hemoglobin 8.3 L Hematocrit 28.2 L Mean Corpuscular Volume 89.5 Mean Corpuscular Hemoglobin 26.3 L Mean Corpuscular Hemoglobin Concent 29.4 L Red Cell Distribution Width 17.9 H Platelet Count 192 Mean Platelet Volume 10.3 Neutrophils % 82.0 H Lymphocytes % 8.2 L Monocytes % 5.9 Eosinophils % 2.9 Basophils % 0.5 Nucleated Red Blood Cells % 0.0 Neutrophils # 7.0 Lymphocytes # 0.7 L Monocytes # 0.5 Eosinophils # 0.3 Basophils # 0.0 Nucleated Red Blood Cells # 0.0 Sodium Level 146 H Potassium Level 3.2 L Chloride Level 110 Carbon Dioxide Level 30 Anion Gap 9 Blood Urea Nitrogen 36 H Creatinine 5.61 H Glucose Level 131 # Calcium Level 6.8 L Phosphorus Level 4.1 Magnesium Level 2.0 Albumin 1.9 L Test 05/09/17 11:46 Bedside Glucose 147 Medications Medications Current Medications Ondansetron HCl (Zofran Inj) 4 mg Q6H PRN IV NAUSEA AND/OR VOMITING; Start at 18:00 Acetaminophen (Tylenol Tab) 650 mg Q6H PRN PO PAIN LEVEL 1-3 OR FEVER Last administered on 05/04/17t 20:45; Admin Dose 650 MG; Start 04/25/17 at 18:00 Acetaminophen/ Hydrocodone Bitart ([place] (5/325)) 1 tab Q6H PRN PO MODERATE PAIN LEVEL 4-6; Start 04/25/17 at 18:00 Morphine Sulfate (morphine) 2 mg Q4H PRN IV SEVERE PAIN LEVEL 7-10; Start 04/25 at 18:00 Docusate Sodium (Colace) 100 mg Q12H PRN PO CONSTIPATION; Start 04/25/17 at 18: 00 Lorazepam (Ativan) 0.5 mg Q6H PRN IV ANXIETY; Start 04/25/17 at 18:00 Hydralazine HCl (Apresoline) 10 mg Q6H PRN IV ELEVATED BLOOD PRESSURE; Start at 18:00 Nitroglycerin (Nitroglycerin (Sl Tab) 0.4 Mg) 1 tab Q5M PRN SL ANGINA; Start at 18:00 Atorvastatin Calcium (Lipitor) 20 mg HS PO Last administered on 05/08/17 21: 17; Admin Dose 20 MG; Start 04/25/17 at 21:00 Donepezil HCl (Aricept) 5 mg DAILY PO Last administered on 05/09/17 09:02; Admin Dose 5 MG; Start 04/26/17 at 09:00 Famotidine (Pepcid) 20 mg Q24H PO Last administered on 04/25/17 21:43; Admin Dose 20 MG; Start 04/25/17 at 21:00; Status Future Hold Folic Acid (Folic Acid) 1 mg DAILY PO Last administered on 05/09/17 09:02; Admin Dose 1 MG; Start 04/26/17 at 09:00 Furosemide (Lasix) 20 mg DAILY PO ; Start 04/26/17 at 09:00; Status Future Hold Loratadine (Claritin) 10 mg DAILY PO Last administered on 05/09/17 09:01; Admin Dose 10 MG; Start 04/26/17 at 09:00 Megestrol Acetate (Megace) 40 mg DAILY PO Last administered on 05/09/17 09:02 ; Admin Dose 40 MG; Start 04/26/17 at 09:00 Tamsulosin HCl (Flomax) 0.4 mg HS PO Last administered on 05/08/17 21:17; Admin Dose 0.4 MG; Start 04/25/17 at 21:00 Diagnostic Test (Pha) (Accu-Chek) 1 ea 02 XX Last administered on 05/04/17 02: 00; Admin Dose 1 EA; Start 04/26/17 at 02:00 Miscellaneous Information 1 ea NOTE XX ; Start 04/25/17 at 19:00 Glucose (Glutose) 15 gm Q15M PRN PO DECREASED GLUCOSE; Start 04/25/17 at 19:00 Glucose (Glutose) 22.5 gm Q15M PRN PO DECREASED GLUCOSE; Start 04/25/17 at 19: 00 Dextrose (D50w Syringe) 25 ml Q15M PRN IV DECREASED GLUCOSE Last administered on 05/08/17 04:58; Admin Dose 25 ML; Start 04/25/17 at 19:00 Dextrose (D50w Syringe) 50 ml Q15M PRN IV DECREASED GLUCOSE; Start 04/25/17 at 19:00 Glucagon (Glucagen) 1 mg Q15M PRN IM DECREASED GLUCOSE; Start 04/25/17 at 19:00 Glucose (Glutose) 15 gm Q15M PRN BUCCAL DECREASED GLUCOSE; Start 04/25/17 at 19 :00 Lansoprazole (Prevacid) 30 mg DAILY@06 PO Last administered on 05/09/17 05:16 ; Admin Dose 30 MG; Start 05/01/17 at 06:00 Hydroxyzine HCl (Atarax) 25 mg Q8H PRN PO ITCHING Last administered on 20:46; Admin Dose 25 MG; Start 04/30/17 at 16:30 Calcitriol (Rocaltrol) 0.25 mcg DAILY PO Last administered on 05/09/17 09:02 ; Admin Dose 0.25 MCG; Start 05/04/17 at 16:00 Cholecalciferol (Vitamin D) 2,000 unit DAILY PO Last administered on 09:02; Admin Dose 2,000 UNIT; Start 05/07/17 at 09:00 Metoprolol Tartrate (Lopressor) 12.5 mg BID PO Last administered on 05/08/17 21:18; Admin Dose 12.5 MG; Start 05/07/17 at 21:00 Midodrine (Proamatine) 5 mg TID@,,17 PO Last administered on 05/09/17 12: 08; Admin Dose 5 MG; Start 05/08/17 at 09:00; Stop 10/11/17 at 20:00 KURT MCKINNON MD May 09, 2017 14:38
--- NOTE | 2017-05-09 14:58 | CONS ---
Date/Time of Note Date/Time of Note DATE: 05/09/17 TIME: 14:57 Assessment/Plan Assessment/Plan Chief Complaint/Hosp Course - [facility] [place] [facility] - Severe anemia - Severe Malnutrition - Anemia - CAD/CHF PLAN: - EGD noted - Post Blood Transfusion with stable H/H - Bedside HD - Borderline low BP with tachycardia on HD last time - Using higher K+ bath on HD - Encourage PO Intake - Follow up with H/H Problems: Consultation Date/Type/Reason Admit Date/Time Apr 25, 2017 at 16:42 Initial Consult Date 04/26/17 Type of Consultation: NEPHROLOGY Reason for Consultation ESRD with Anemia Referring Provider: CARINA LINCOLN 24 HR Interval Summary Subjective hx not possible: pt non-verbal Constitutional: no complaints Exam/Review of Systems Vital Signs Vitals Vital Signs Date Time Temp Pulse Resp B/P Pulse Ox O2 Delivery O2 Flow Rate FiO2 05/09/17 12:16 83 05/09/17 12:00 05/09/17 11:42 97.9 18 126/63 97 Intake and Output 05/08/17 05/08/17 05/09/17 15:00 23:00 07:00 Intake Total 240 ml Balance 240 ml Exam Constitutional: non-verbal Psych: no complaints Respiratory: crackles/rales Cardiovascular: edema, systolic murmur Gastrointestinal: soft Results Result Diagram: 05/09/1731 05/09/17 0931 Results 24 hrs Laboratory Tests Test 05/08/17 17:22 05/08/17 21:14 05/09/17 07:52 05/09/17 09:31 Bedside Glucose 126 136 110 White Blood Count 8.5 Red Blood Count 3.15 L Hemoglobin 8.3 L Hematocrit 28.2 L Mean Corpuscular Volume 89.5 Mean Corpuscular Hemoglobin 26.3 L Mean Corpuscular Hemoglobin Concent 29.4 L Red Cell Distribution Width 17.9 H Platelet Count 192 Mean Platelet Volume 10.3 Neutrophils % 82.0 H Lymphocytes % 8.2 L Monocytes % 5.9 Eosinophils % 2.9 Basophils % 0.5 Nucleated Red Blood Cells % 0.0 Neutrophils # 7.0 Lymphocytes # 0.7 L Monocytes # 0.5 Eosinophils # 0.3 Basophils # 0.0 Nucleated Red Blood Cells # 0.0 Sodium Level 146 H Potassium Level 3.2 L Chloride Level 110 Carbon Dioxide Level 30 Anion Gap 9 Blood Urea Nitrogen 36 H Creatinine 5.61 H Glucose Level 131 # Calcium Level 6.8 L Phosphorus Level 4.1 Magnesium Level 2.0 Albumin 1.9 L Test 05/09/17 11:46 Bedside Glucose 147 Medications Medications Current Medications Ondansetron HCl (Zofran Inj) 4 mg Q6H PRN IV NAUSEA AND/OR VOMITING; Start at 18:00 Acetaminophen (Tylenol Tab) 650 mg Q6H PRN PO PAIN LEVEL 1-3 OR FEVER Last administered on 05/04/17 20:45; Admin Dose 650 MG; Start 04/25/17 at 18:00 Acetaminophen/ Hydrocodone Bitart ([place] (5/325)) 1 tab Q6H PRN PO MODERATE PAIN LEVEL 4-6; Start 04/25/17 at 18:00 Morphine Sulfate (morphine) 2 mg Q4H PRN IV SEVERE PAIN LEVEL 7-10; Start 04/25 at 18:00 Docusate Sodium (Colace) 100 mg Q12H PRN PO CONSTIPATION; Start 04/25/17 at 18: 00 Lorazepam (Ativan) 0.5 mg Q6H PRN IV ANXIETY; Start 04/25/17 at 18:00 Hydralazine HCl (Apresoline) 10 mg Q6H PRN IV ELEVATED BLOOD PRESSURE; Start at 18:00 Nitroglycerin (Nitroglycerin (Sl Tab) 0.4 Mg) 1 tab Q5M PRN SL ANGINA; Start at 18:00 Atorvastatin Calcium (Lipitor) 20 mg HS PO Last administered on 05/08/17 21: 17; Admin Dose 20 MG; Start 04/25/17 at 21:00 Donepezil HCl (Aricept) 5 mg DAILY PO Last administered on 05/09/17 09:02; Admin Dose 5 MG; Start 04/26/17 at 09:00 Famotidine (Pepcid) 20 mg Q24H PO Last administered on 04/25/17 21:43; Admin Dose 20 MG; Start 04/25/17 at 21:00; Status Future Hold Folic Acid (Folic Acid) 1 mg DAILY PO Last administered on 05/09/17 09:02; Admin Dose 1 MG; Start 04/26/17 at 09:00 Furosemide (Lasix) 20 mg DAILY PO ; Start 04/26/17 at 09:00; Status Future Hold Loratadine (Claritin) 10 mg DAILY PO Last administered on 05/09/17 09:01; Admin Dose 10 MG; Start 04/26/17 at 09:00 Megestrol Acetate (Megace) 40 mg DAILY PO Last administered on 05/09/17 09:02 ; Admin Dose 40 MG; Start 04/26/17 at 09:00 Tamsulosin HCl (Flomax) 0.4 mg HS PO Last administered on 05/08/17 21:17; Admin Dose 0.4 MG; Start 04/25/17 at 21:00 Diagnostic Test (Pha) (Accu-Chek) 1 ea 02 XX Last administered on 05/04/17 02: 00; Admin Dose 1 EA; Start 04/26/17 at 02:00 Miscellaneous Information 1 ea NOTE XX ; Start 04/25/17 at 19:00 Glucose (Glutose) 15 gm Q15M PRN PO DECREASED GLUCOSE; Start 04/25/17 at 19:00 Glucose (Glutose) 22.5 gm Q15M PRN PO DECREASED GLUCOSE; Start 04/25/17 at 19: 00 Dextrose (D50w Syringe) 25 ml Q15M PRN IV DECREASED GLUCOSE Last administered on 05/08/17 04:58; Admin Dose 25 ML; Start 04/25/17 at 19:00 Dextrose (D50w Syringe) 50 ml Q15M PRN IV DECREASED GLUCOSE; Start 04/25/17 at 19:00 Glucagon (Glucagen) 1 mg Q15M PRN IM DECREASED GLUCOSE; Start 04/25/17 at 19:00 Glucose (Glutose) 15 gm Q15M PRN BUCCAL DECREASED GLUCOSE; Start 04/25/17 at 19 :00 Lansoprazole (Prevacid) 30 mg DAILY@06 PO Last administered on 05/09/17 05:16 ; Admin Dose 30 MG; Start 05/01/17 at 06:00 Hydroxyzine HCl (Atarax) 25 mg Q8H PRN PO ITCHING Last administered on 20:46; Admin Dose 25 MG; Start 04/30/17 at 16:30 Calcitriol (Rocaltrol) 0.25 mcg DAILY PO Last administered on 05/09/17 09:02 ; Admin Dose 0.25 MCG; Start 05/04/17 at 16:00 Cholecalciferol (Vitamin D) 2,000 unit DAILY PO Last administered on 09:02; Admin Dose 2,000 UNIT; Start 05/07/17 at 09:00 Metoprolol Tartrate (Lopressor) 12.5 mg BID PO Last administered on 05/08/17 21:18; Admin Dose 12.5 MG; Start 05/07/17 at 21:00 Midodrine (Proamatine) 5 mg TID@, PO Last administered on 05/09/17 12: 08; Admin Dose 5 MG; Start 05/08/17 at 09:00; Stop 05/09/17 at 20:00 DENVER ANTONY MD May 09, 2017 14:58
[2017-05-09] MEDS: ATORVASTATIN 20 MG TAB PO SCH (20:37)
[2017-05-09] MEDS: TAMSULOSIN (SR) 0.4 MG CAP PO SCH (20:39)
[2017-05-10] VITALS (12 sets, daily range): BP systolic 113–156; BP diastolic 51–76; PULSE 71–99; RESP 17–20
[2017-05-10] MEDS: LANSOPRAZOLE 30 MG CAP PO SCH (06:03)
[2017-05-10] MEDS: INSULIN ASPART [NOVOLOG] 3 ML PEN SC SCH ×4 (07:42→21:00)
[2017-05-10] MEDS: MEGESTROL 40 MG TAB PO SCH (08:24)
[2017-05-10] MEDS: LORATADINE 10 MG TAB PO SCH (08:24)
[2017-05-10] MEDS: CALCITRIOL 0.25 MCG CAP PO SCH (08:24)
[2017-05-10] MEDS: METOPROLOL 25 MG TAB PO SCH ×2 (08:24→21:43)
[2017-05-10] MEDS: FOLIC ACID 1 MG TAB PO SCH (08:24)
[2017-05-10] MEDS: CHOLECALCIFEROL 2,000 UNIT CAP PO SCH (08:24)
[2017-05-10] MEDS: DONEPEZIL 5 MG TAB PO SCH (08:24)
--- NOTE | 2017-05-10 08:36 | CONS ---
Date/Time of Note Date/Time of Note DATE: 05/10/17 TIME: 08:35 Consult Date/Type/Reason Admit Date/Time Apr 25, 2017 at 16:42 Initial Consult Date 04/26/17 Type of Consultation: CARD Ordering Provider: CARINA LINCOLN Subjective S: D/W STAFF and rhythm was reviewed. pt with no VT over night PT with a lot less frequent PVC no reports of chest pain or pressure; pt does not answer my questions; O: General: thin . elderly no acute distress HEENT: NC/AT. pupils are equal. round. NECK: NO JVD. no stridor. CV: RRR. systolic murmur; no gallop or rubs. chest s/p PPM Left side. PULM: no wheezing . but mild rhonchi. GI: SOFT, NT, ND, no rebound or guarding Extremity: trace B/L LE edema. no clubbing. neuro: awake but does not answer questions. Psych: calm and pleasant rectal: deferred : normal echo personally reviewed: 1. Normal left ventricular systolic function. Normal left ventricular cavity size. Left ventricle not well visualized. Moderate concentric left ventricular hypertrophy. Ejection fraction is visually estimated at 60 %. Abnormal Diastolic Function. 2. Mitral valve is not well visualized. Mild mitral leaflet calcification. Mild mitral annular calcification. Trace mitral regurgitation. 3. Aortic valve not well visualized. Moderate aortic stenosis. Aortic valve Max velocity 2.90 m/sec. Max PG 34.00 mmHg. Mean PG 18.00 mmHg. Aortic cusps appear moderately calcified. 4. Normal appearance of the tricuspid valve. Tricuspid valve not well visualized. Estimated peak PA systolic pressure 29 mmHg. There is mild tricuspid regurgitation. 5. very suboptimal study. Objective Vital Signs Date Time Temp Pulse Resp B/P Pulse Ox O2 Delivery O2 Flow Rate FiO2 05/10/17 07:58 98.0 77 20 114/51 90 05/09/17 20:00 Nasal Cannula 5.0 Intake and Output 05/09/17 05/09/17 05/10/17 15:00 23:00 07:00 Intake Total 500 ml 400 ml Output Total 2500 ml Balance -2000 ml 400 ml Results/Medications Result Diagram: 05/09/1731 05/09/1731 Results 24 hrs Laboratory Tests Test 05/09/17 09:31 05/09/17 11:46 05/09/17 17:08 05/09/17 20:35 White Blood Count 8.5 Red Blood Count 3.15 L Hemoglobin 8.3 L Hematocrit 28.2 L Mean Corpuscular Volume 89.5 Mean Corpuscular Hemoglobin 26.3 L Mean Corpuscular Hemoglobin Concent 29.4 L Red Cell Distribution Width 17.9 H Platelet Count 192 Mean Platelet Volume 10.3 Neutrophils % 82.0 H Lymphocytes % 8.2 L Monocytes % 5.9 Eosinophils % 2.9 Basophils % 0.5 Nucleated Red Blood Cells % 0.0 Neutrophils # 7.0 Lymphocytes # 0.7 L Monocytes # 0.5 Eosinophils # 0.3 Basophils # 0.0 Nucleated Red Blood Cells # 0.0 Sodium Level 146 H Potassium Level 3.2 L Chloride Level 110 Carbon Dioxide Level 30 Anion Gap 9 Blood Urea Nitrogen 36 H Creatinine 5.61 H Glucose Level 131 # Calcium Level 6.8 L Phosphorus Level 4.1 Magnesium Level 2.0 Albumin 1.9 L Bedside Glucose 147 177 142 Test 05/10/17 07:37 Bedside Glucose 139 Medications Current Medications Ondansetron HCl (Zofran Inj) 4 mg Q6H PRN IV NAUSEA AND/OR VOMITING; Start at 18:00 Acetaminophen (Tylenol Tab) 650 mg Q6H PRN PO PAIN LEVEL 1-3 OR FEVER Last administered on 05/04/17t 20:45; Admin Dose 650 MG; Start 04/25/17 at 18:00 Acetaminophen/ Hydrocodone Bitart ([place] (5/325)) 1 tab Q6H PRN PO MODERATE PAIN LEVEL 4-6; Start 04/25/17 at 18:00 Morphine Sulfate (morphine) 2 mg Q4H PRN IV SEVERE PAIN LEVEL 7-10; Start 04/25 at 18:00 Docusate Sodium (Colace) 100 mg Q12H PRN PO CONSTIPATION; Start 04/25/17 at 18: 00 Lorazepam (Ativan) 0.5 mg Q6H PRN IV ANXIETY; Start 04/25/17 at 18:00 Hydralazine HCl (Apresoline) 10 mg Q6H PRN IV ELEVATED BLOOD PRESSURE; Start at 18:00 Nitroglycerin (Nitroglycerin (Sl Tab) 0.4 Mg) 1 tab Q5M PRN SL ANGINA; Start at 18:00 Atorvastatin Calcium (Lipitor) 20 mg HS PO Last administered on 05/09/17 20: 37; Admin Dose 20 MG; Start 04/25/17 at 21:00 Donepezil HCl (Aricept) 5 mg DAILY PO Last administered on 05/10/17 08:24; Admin Dose 5 MG; Start 04/26/17 at 09:00 Famotidine (Pepcid) 20 mg Q24H PO Last administered on 04/25/17 21:43; Admin Dose 20 MG; Start 04/25/17 at 21:00; Status Future Hold Folic Acid (Folic Acid) 1 mg DAILY PO Last administered on 05/10/17 08:24; Admin Dose 1 MG; Start 04/26/17 at 09:00 Furosemide (Lasix) 20 mg DAILY PO ; Start 04/26/17 at 09:00; Status Future Hold Loratadine (Claritin) 10 mg DAILY PO Last administered on 05/10/17 08:24; Admin Dose 10 MG; Start 04/26/17 at 09:00 Megestrol Acetate (Megace) 40 mg DAILY PO Last administered on 05/10/17 08:24 ; Admin Dose 40 MG; Start 04/26/17 at 09:00 Tamsulosin HCl (Flomax) 0.4 mg HS PO Last administered on 05/09/17 20:39; Admin Dose 0.4 MG; Start 04/25/17 at 21:00 Diagnostic Test (Pha) (Accu-Chek) 1 ea 02 XX Last administered on 05/04/17 02: 00; Admin Dose 1 EA; Start 04/26/17 at 02:00 Miscellaneous Information 1 ea NOTE XX ; Start 04/25/17 at 19:00 Glucose (Glutose) 15 gm Q15M PRN PO DECREASED GLUCOSE; Start 04/25/17 at 19:00 Glucose (Glutose) 22.5 gm Q15M PRN PO DECREASED GLUCOSE; Start 04/25/17 at 19: 00 Dextrose (D50w Syringe) 25 ml Q15M PRN IV DECREASED GLUCOSE Last administered on 05/08/17 04:58; Admin Dose 25 ML; Start 04/25/17 at 19:00 Dextrose (D50w Syringe) 50 ml Q15M PRN IV DECREASED GLUCOSE; Start 04/25/17 at 19:00 Glucagon (Glucagen) 1 mg Q15M PRN IM DECREASED GLUCOSE; Start 04/25/17 at 19:00 Glucose (Glutose) 15 gm Q15M PRN BUCCAL DECREASED GLUCOSE; Start 04/25/17 at 19 :00 Lansoprazole (Prevacid) 30 mg DAILY@06 PO Last administered on 05/10/17 06:03 ; Admin Dose 30 MG; Start 05/01/17 at 06:00 Hydroxyzine HCl (Atarax) 25 mg Q8H PRN PO ITCHING Last administered on 20:46; Admin Dose 25 MG; Start 04/30/17 at 16:30 Calcitriol (Rocaltrol) 0.25 mcg DAILY PO Last administered on 05/10/17 08:24 ; Admin Dose 0.25 MCG; Start 05/04/17 at 16:00 Cholecalciferol (Vitamin D) 2,000 unit DAILY PO Last administered on 08:24; Admin Dose 2,000 UNIT; Start 05/07/17 at 09:00 Metoprolol Tartrate (Lopressor) 12.5 mg BID PO Last administered on 05/10/17 08:24; Admin Dose 12.5 MG; Start 05/07/17 at 21:00 Assessment/Plan Chief Complaint/Hosp Course 1. Paroxysmal atrial fibrillation. 2. Ventricular arrhythmia and frequent PVCs and wide complex tachycardia. 3. Renal failure on dialysis. 4. History of myocardial infarction. 5. History of cerebrovascular accident. 6. Aortic stenosis. 7. Severe anemia. 8. Abnormal EKG with sick sinus syndrome status post permanent pacemaker, status post hypertension, currently mostly hypotensive. 9. Dyslipidemia, on statin. 10. Dementia, on Aricept. 11. malnutrition and severe anemia RECOMMENDATIONS: cont beta felix as tolerated. Family to bring the pacemaker to have it interrogated. He is not a candidate for anticoagulation given his severe anemia, unfortunately. cont Nutritional support and respiratory care Dialysis as per renal. Thank you for this referral. Code status still FULL CODE. Problems: MELVIN BRODERICK MD May 10, 2017 08:36
[2017-05-10] MEDS ORDERED: METO-448 PO (12:39)
--- NOTE | 2017-05-10 12:45 | DS ---
Date/Time of Note Date/Time of Note DATE: 05/10/17 TIME: 12:35 Discharge Summary Admission/Discharge Info Admit Date/Time Apr 25, 2017 at 16:42 Discharge Date/Time Discharge Diagnosis 1. Anemia, chronic, CKD related, s/p transfusion 2. ESRD, DD, on HD 3. fail to thrive, malnutrition with hypoalbuminemia, talked with family about feeding 4. Paroxysmal atrial fibrillation, sinus rhythm, on metoprolol, not a candidate for anticoagulant 5. Frequent PVCs, better on metoprolol 6. History of cerebrovascular accident. 7. Aortic stenosis. 8. Sick sinus syndrome status post permanent pacemaker, status post hypertension, currently mostly hypotensive. 9. Dyslipidemia, on statin. 10. Dementia, chronic, stable Patient Condition: Stable Hospital Course An 89-year-old male, past medical history based on records of prior UTI, prior thrombocytopenia, anemia of chronic disease, end-stage renal disease on dialysis. BPH, adult-onset diabetes, history of pacemaker placement, prior stroke. He was sent over from dialysis center because of a low hemoglobin and apparently he had an outpatient lab study performed that showed a hemoglobin of 6.1. Most of the information was taken from the ER documentation as patient was unable to provide a full HPI at this time although he did state he had weakness all over his body. Denied fevers. No loss of consciousness. No recent injuries. That is the full extent of the review of systems that could be obtained. He did get dialysis earlier today. When he came in today to the ER, he was found with a hemoglobin of 7.3, and 2 units of PRBC was given that improved his H/H but his HB are stable at 8s. I will give him one more unit of PRBC prior to discharge. Patient has severe dementia and poor intake. Family/son is able to feed him and the son states he feed the patient well at home. Family declines SNF and prefers to take patient home. Patient had runs of atrial fibrillation and frequent PVCs that improved with metoprolol. Cardiology does not feel he is a candidate for anticoagulant. He will follow up with cardiology for this. Home Meds Active Scripts [Deya Patient Lift] No Conflict Check, UNIT for transfer pt, #1 Prov:VIV FORD MD 05/02/17 Reported Medications Furosemide* (Furosemide*) 20 Mg Tablet, 20 MG PO DAILY, #60 TAB TAKE 4 TIMES A WEEK 04/25/17 Loratadine* (Loratadine*) 10 Mg Tablet, 10 MG PO DAILY, #30 TAB 04/25/17 Megestrol Acetate* (Megace*) 40 Mg Tab, 40 MG PO DAILY, TAB 04/25/17 Famotidine* (Famotidine*) 20 Mg Tablet, 20 MG PO BID, #60 TAB 07/06/16 Donepezil* (Donepezil*) 5 Mg Tablet, 5 MG PO DAILY, #30 TAB 07/06/16 Tamsulosin Hcl* (Flomax*) 0.4 Mg Cap.er.24h, 0.4 MG PO HS, CAP 07/06/16 Atorvastatin Calcium* (Atorvastatin Calcium*) 20 Mg Tablet, 20 MG PO HS, TAB 12/14/14 Folic Acid* (Folic Acid*) 1 Mg Tablet, 1 MG PO DAILY, TAB 12/14/14 Sitagliptin* (Januvia*) 25 Mg Tablet, 25 MG PO DAILY, TAB 12/14/14 Aspirin (Low Dose Aspirin) 81 Mg Tablet.dr, 81 MG PO DAILY 12/14/14 Calcium Carbonate* ([place]-500*) 1 Tab Tablet, 1 TAB PO BID, TAB 12/14/14 Follow-up Plan PCP in one week Cardiology in two weeks Primary Care Provider Not On Staff Doctor Pending Labs Laboratory Tests Test 05/09/17 17:08 05/09/17 20:35 05/10/17 07:37 05/10/17 11:50 Bedside Glucose 177mg/dL (70-220) 142mg/dL (70-220) 139mg/dL (70-220) 173mg/dL (70-220) KURT MCKINNON MD May 10, 2017 12:45
[2017-05-10] MEDS: TAMSULOSIN (SR) 0.4 MG CAP PO SCH (21:43)
[2017-05-10] MEDS: ATORVASTATIN 20 MG TAB PO SCH (21:43)
== END 2017-05-10 22:20 | disposition home health service (06) | DRG 291 ==
LOC: E/R 15:42 → MS4 16:42
PROVIDERS: ADMIT Hospitalist; ATTEND Hospitalist
PROC: 30253N1 (ICD-10-PCS; 2017-04-25)
PROC: 0DJ08ZZ Inspection of Upper Intestinal Tract, Via Natural or Artificial Opening Endoscopic (ICD-10-PCS; principal; 2017-04-27 20:00)
PROC: 5A1D70Z Performance of Urinary Filtration, Intermittent, Less than 6 Hours Per Day (ICD-10-PCS; 2017-05-01)
DX: I13.2 Hypertensive heart and chronic kidney disease with heart failure and with stage 5 chronic kidney disease, or end stage renal disease (principal); N18.6 End stage renal disease; E43 Unspecified severe protein-calorie malnutrition; I95.9 Hypotension, unspecified; E11.22 Type 2 diabetes mellitus with diabetic chronic kidney disease; E88.09 Other disorders of plasma-protein metabolism, not elsewhere classified; F03.90 Unspecified dementia, unspecified severity, without behavioral disturbance, psychotic disturbance, mood disturbance, and anxiety; I50.30 Unspecified diastolic (congestive) heart failure; D63.1 Anemia in chronic kidney disease; I48.0 Paroxysmal atrial fibrillation; Z99.2 Dependence on renal dialysis; Z68.22 Body mass index [BMI] 22.0-22.9, adult; E78.00 Pure hypercholesterolemia, unspecified; I25.10 Atherosclerotic heart disease of native coronary artery without angina pectoris; K29.60 Other gastritis without bleeding; N40.0 Benign prostatic hyperplasia without lower urinary tract symptoms; Z95.0 Presence of cardiac pacemaker; Z86.73 Personal history of transient ischemic attack (TIA), and cerebral infarction without residual deficits; M79.652 Pain in left thigh; E83.51 Hypocalcemia; E55.9 Vitamin D deficiency, unspecified; I25.2 Old myocardial infarction; I49.3 Ventricular premature depolarization; I35.0 Nonrheumatic aortic (valve) stenosis; R62.7 Adult failure to thrive; Z79.84 Long term (current) use of oral hypoglycemic drugs; Z79.82 Long term (current) use of aspirin; Z87.891 Personal history of nicotine dependence
CPT/HCPCS: 36415; 36430; 71010; 73510; 80048; 80053; 80061; 80069; 82306; 82652; 82962; 83036; 83605; 83735; 84100; 84439; 84443; 84484; 85025; 85610; 85730; 86850; 86900; 86901; 86920; 87040; 87045; 90686; 90935; 92526; 92610; 93005; 93306; 93971; 97003; 97110; 97161; 97167; 97530; C9113; J1815; J7040; J7042; P9016; P9047; Q4081

== ENCOUNTER 2017-05-15 16:43 | Inpatient (IN) | payer MEDICARE, OTHER ==
[~2017-05-15] VITALS: Ht 162.6 cm; Wt 53.8 kg
[~2017-05-15 16:43] MED LIST changes: -CALC0.2511 PO; -CARV12.579 PO; -FER325 PO; -LAMO25TA55 PO; +LORA10TA3 PO; +MEGE40TA PO; +METO-448 PO; +[UNRECOGNIZED DRUG - SUPPLY]
[2017-05-15] MEDS ORDERED: SOD CHLORIDE 0.9% 500 ML IV STA ×2 (17:04→18:29)
--- NOTE | 2017-05-15 18:19 | RADRPT ---
PROCEDURE: XR Chest 1 view. CLINICAL INDICATION: Chest pain. TECHNIQUE: AP views of the chest were obtained. COMPARISON: April 25, 2017 FINDINGS: The heart is large. Calcified atherosclerosis is noted in the aorta. Left-sided dual chamber pacema ker has its leads over the heart and appears stable. Right-sided dialysis catheter is unchanged. Ayla tral pulmonary vascular congestion and interstitial prominence is seen in both lungs. Bilateral mid and lower lung infiltrates, combined with moderate pleural effusions are identified. Osseous struct ures are intact. IMPRESSION: Cardiomegaly with calcified atherosclerosis in the aorta. Central pulmonary vascular congestion and interstitial prominence in both lungs. Bilateral mid and lower lung infiltrates, combined with moderate pleural effusions. RPTAT: AA .Fer Reddy MD, Date Time Electronically viewed and signed by .Fer Reddy MD, on 05/15/2017 18:19 .P/
[2017-05-15] MEDS ORDERED: CEFEPIME 1GM/50 ML (PMX) 50 ML IVPB STA (18:29)
[2017-05-15] MEDS ORDERED: VANCOMYCIN 1 GM (PMX) 250 ML IVPB STA (18:29)
--- NOTE | 2017-05-15 18:32 | ERA ---
ER Documentation Chief Complaint Date/Time DATE: 05/15/17 TIME: 18:24 Chief Complaint from dialysis due hypotension HPI This 89-year-old male who was sent here from dialysis because of low blood pressure. Patient was discharged from this hospital a few days ago for traumatic anemia requiring blood transfusion. Patient had dialysis on Sunday. Today he went to dialysis and they do not do it because his blood pressure was 90/40. Patient takes metoprolol 12.5 mg twice daily. The patient says he feels generalized weakness but is not very conversive and does not give very good history. He is limited in for the patient and mostly from the son. ROS All systems reviewed and are negative except as per history of present illness. Medications Home Meds Active Scripts Metoprolol Tartrate* (Lopressor*) 25 Mg Tab, 12.5 MG PO BID for 30 Days, TAB Prov:KURT MCKINNON MD 05/10/17 Reported Medications Loratadine* (Loratadine*) 10 Mg Tablet, 10 MG PO DAILY, #30 TAB 04/25/17 Megestrol Acetate* (Megace*) 40 Mg Tab, 40 MG PO DAILY, TAB 04/25/17 Famotidine* (Famotidine*) 20 Mg Tablet, 20 MG PO BID, #60 TAB 07/06/16 Donepezil* (Donepezil*) 5 Mg Tablet, 5 MG PO DAILY, #30 TAB 07/06/16 Tamsulosin Hcl* (Flomax*) 0.4 Mg Cap.er.24h, 0.4 MG PO HS, CAP 07/06/16 Atorvastatin Calcium* (Atorvastatin Calcium*) 20 Mg Tablet, 20 MG PO HS, TAB 12/14/14 Folic Acid* (Folic Acid*) 1 Mg Tablet, 1 MG PO DAILY, TAB 12/14/14 Sitagliptin* (Januvia*) 25 Mg Tablet, 25 MG PO DAILY, TAB 12/14/14 Aspirin (Low Dose Aspirin) 81 Mg Tablet.dr, 81 MG PO DAILY 12/14/14 Calcium Carbonate* ([place]-500*) 1 Tab Tablet, 1 TAB PO BID, TAB 12/14/14 Discontinued Reported Medications Furosemide* (Furosemide*) 20 Mg Tablet, 20 MG PO DAILY, #60 TAB TAKE 4 TIMES A WEEK 04/25/17 Discontinued Scripts [Deya Patient Lift] No Conflict Check, UNIT for transfer pt, #1 Prov:VIV FORD MD 05/02/17 Allergies Allergies: Coded Allergies: No Known Allergy (Unverified , 05/15/17) PMhx/Soc History of Surgery: No Anesthesia Reaction: No Hx Neurological Disorder: Yes Hx Respiratory Disorders: No Hx Cardiac Disorders: Yes Hx Psychiatric Problems: No Hx Miscellaneous Medical Probl: No Hx Alcohol Use: No Hx Substance Use: No Hx Tobacco Use: No Smoking Status: Never smoker FmHx Family History: No coronary disease Physical Exam Vitals Vital Signs Date Time Temp Pulse Resp B/P Pulse Ox O2 Delivery O2 Flow Rate FiO2 05/15/17 17:52 73 18 117/53 Nasal Cannula 2.0 05/15/17 17:28 Nasal Cannula 2 05/15/17 17:02 69 20 88/39 99 Nasal Cannula 2.0 05/15/17 16:51 98.1 82 18 94/44 99 Physical Exam Const: Well-developed, well-nourished Head: Atraumatic, normocephalic Eyes: Normal Conjunctiva, PERRLA, EOMI, normal sclera, no nystagmus ENT: Normal External Ears, Nose and Mouth, DRY mucus membranes. Neck: Full range of motion. No meningismus, no lymphadenopathy. Resp: Clear to auscultation bilaterally, no wheezing, rhonchi, rales Cardio: Regular rate and rhythm, no murmurs, S1 S2 present Abd: Soft, mild diffuse tenderness, non distended. Normal bowel sounds , no guarding or rebound, no pulsitile abdominal masses or bruits Skin: No petechiae or rashes, no ecchymosis , no maculopapular rash Back: No midline or flank tenderness Ext: No cyanosis, or edema, FROM x 4, normal inspection, neurovascularly intact x 4 Neur: Awake and alert, STR 5/5 x 4, sensation intact x 4, no focal findings, cerebellum intact Psych: Normal Mood and Affect Result Diagram: 05/15/17173405/15/171734 Results 24 hrs Laboratory Tests Test 05/15/17 17:35 05/15/17 18:45 White Blood Count 9.610^3/ul Red Blood Count 3.9110^6/ul Hemoglobin 10.8g/dl Hematocrit 35.5% Mean Corpuscular Volume 90.8fl Mean Corpuscular Hemoglobin 27.6pg Mean Corpuscular Hemoglobin Concent 30.4g/dl Red Cell Distribution Width 18.0% Platelet Count 45395^3/UL Mean Platelet Volume 11.2fl Neutrophils % 76.7% Lymphocytes % 10.3% Monocytes % 8.9% Eosinophils % 3.2% Basophils % 0.4% Nucleated Red Blood Cells % 0.0/100WBC Neutrophils # 7.410^3/ul Lymphocytes # 1.010^3/ul Monocytes # 0.910^3/ul Eosinophils # 0.310^3/ul Basophils # 0.010^3/ul Nucleated Red Blood Cells # 0.010^3/ul Prothrombin Time 14.2Sec Prothrombin Time Ratio 1.1 INR International Normalized Ratio 1.10 Activated Partial Thromboplast Time 41.0Sec Sodium Level 148mmol/L Potassium Level 4.9mmol/L Chloride Level 112mmol/L Carbon Dioxide Level 27mmol/L Anion Gap 14 Blood Urea Nitrogen 70mg/dl Creatinine 8.11mg/dl Glucose Level 138mg/dl Calcium Level 7.3mg/dl Total Bilirubin 0.1mg/dl Direct Bilirubin 0.00mg/dl Indirect Bilirubin 0.1mg/dl Aspartate Amino Transf (AST/SGOT) 32IU/L Alanine Aminotransferase (ALT/SGPT) 24IU/L Alkaline Phosphatase 261IU/L Troponin I 0.123ng/ml Total Protein 5.7g/dl Albumin 2.1g/dl Globulin 3.60g/dl Albumin/Globulin Ratio 0.58 Lactic Acid Level 2.5mmol/L Current Medications Medications (Trade) Dose Ordered Sig/Prateek Route PRN Reason Start Time Stop Time Status Last Admin Dose Admin Sodium Chloride 500 ml @ 500 mls/hr Q1H STAT IV 05/15/17 17:04 05/15/17 18:03 DC 05/15/17 17:49 Cefepime HCl 50 ml @ 100 mls/hr ONCE STAT IVPB 05/15/17 18:29 05/15/17 18:58 DC 05/15/17 19:28 Vancomycin HCl 250 ml @ 125 mls/hr ONCE STAT IVPB 05/15/17 18:29 05/15/17 20:28 05/15/17 19:25 Sodium Chloride (NS) 500 ml @ 500 mls/hr Q1H STAT IV 05/15/17 18:29 05/15/17 19:28 DC 05/15/17 19:28 Procedures/MDM PROCEDURE: XR Chest 1 view. CLINICAL INDICATION: Chest pain. TECHNIQUE: AP views of the chest were obtained. COMPARISON: April 25, 2017 FINDINGS: The heart is large. Calcified atherosclerosis is noted in the aorta. Left- sided dual chamber pacemaker has its leads over the heart and appears stable. Right-sided dialysis catheter is unchanged. Central pulmonary vascular congestion and interstitial prominence is seen in both lungs. Bilateral mid and lower lung infiltrates, combined with moderate pleural effusions are identified. Osseous structures are intact. IMPRESSION: Cardiomegaly with calcified atherosclerosis in the aorta. Central pulmonary vascular congestion and interstitial prominence in both lungs. Bilateral mid and lower lung infiltrates, combined with moderate pleural effusions. RPTAT: AA .Fer Reddy MD, Date Time Electronically viewed and signed by .Fer Reddy MD, on 05/15/2017 18:19 .P/ CC: ROLANDO ALLEN DO EKG: Rate/Rhythm: Normal sinus rhythm, left axis deviation, RSR pattern, inferior Q waves QRS, ST, QT: NORMAL AK, QRS, QT] Impression: Abnormal EKG Patient's blood pressure is 117 systolic after some fluids. The patient's lactate is 2.5 however did not like this patient is septic. He does not have a fever no elevated white count. He did get cultures and antibiotics however I will be very cautious with giving him sepsis protocol IV fluids because you are he has vascular congestion and volume overload because he is a dialysis patient and could make him develop respiratory failure. We will admit to the hospital for IV antibiotic therapy Departure Diagnosis: Primary Impression: Bilateral pulmonary infiltrates on CXR Condition: Stable ROLANDO ALLEN DO May 15, 2017 18:32
[2017-05-15] MEDS ORDERED: ACETAMINOPHEN 325 MG TAB PO PRN (20:00)
[2017-05-15] MEDS ORDERED: SOD CHLORIDE 0.9% 1,000 ML IV SCH (20:00)
[2017-05-15] MEDS ORDERED: ONDANSETRON 4 MG INJ IV PRN ×2 (20:00→21:30)
[2017-05-15 21:29] VITALS: TEMP 98.1
[2017-05-15] MEDS ORDERED: BISACODYL (EC) 5 MG TAB PO PRN (21:30)
[2017-05-15] MEDS ORDERED: NACL 0.9% 3 ML SYG IV SCH (21:30)
[2017-05-15] MEDS ORDERED: DOCUSATE SODIUM 100 MG CAP PO PRN (21:30)
[2017-05-15 21:58] VITALS: BP 119/62; PULSE 70; RESP 17
[2017-05-15] MEDS ORDERED: GLUCOSE GEL 15 GRAM TUBE PO PRN ×2 (22:00)
[2017-05-15] MEDS ORDERED: DEXTROSE 50% 50 ML SYRINGE IV PRN ×2 (22:00)
[2017-05-15] MEDS ORDERED: GLUCAGON 1 MG INJ IM PRN (22:00)
[2017-05-15] MEDS ORDERED: GLUCOSE GEL 15 GRAM TUBE BUCCAL PRN (22:00)
[2017-05-16] VITALS (30 sets, daily range): BP systolic 82–135; BP diastolic 45–76; PULSE 72–125; RESP 16–20; Ht 162.6 cm; Wt 53.8 kg
[2017-05-16] MEDS ORDERED: ALBUMIN HUMAN 25% 100 ML IV ONE (01:30)
[2017-05-16] MEDS ORDERED: VANCOMYCIN IV PER PHARMACY XX SCH (01:30)
[2017-05-16] MEDS ORDERED: SOD CHLORIDE 0.9% 500 ML IV ONE (01:30)
[2017-05-16] MEDS ORDERED: SOD CHLORIDE 0.9% 1,000 ML IV SCH (01:30)
--- NOTE | 2017-05-16 04:28 | HP ---
Date/Time of Note Date/Time of Note DATE: 05/16/17 TIME: 04:07 Assessment/Plan VTE Prophylaxis VTE Prophylaxis Intervention: SCD's Lines/Catheters IV Catheter Type (from [facility] Assessment/Plan Chief Complaint/Hosp Course This is a 89-year-old male being admitted to the telemetry floor for: #1 hypotension secondary to dehydration and/or possible early sepsis #2 lactic acidosis #3 suspected healthcare associated pneumonia #4 anemia, chronic, CKD related, s/p transfusion #5 ESRD, DD, on HD, electrolyte abnormalities #6 fail to thrive, malnutrition with hypoalbuminemia, #7 paroxysmal atrial fibrillation, sinus rhythm, on metoprolol, not a candidate for anticoagulant #8 history of cerebrovascular accident. #9 aortic stenosis. #10 sick sinus syndrome status post permanent pacemaker #11 dyslipidemia, on statin. #12 dementia, chronic, stable Plan: At the current time patient will warrant telemetry admission. I do feel on examination that he is clinically dehydrated secondary to failure to thrive and poor p.o. intake and and he is hypernatremic. Though he is a hemodialysis patient at the current time I will resuscitate him with IV fluid of normal saline. On chest x-ray there are signs of pneumonia and vascular congestion. As he has recently been in the hospital I will treat him at this time for healthcare associated pneumonia with vancomycin and cefepime renally dosed. The current time secondary to his dehydration status and hypotension I will provide him IV fluid resuscitation again and I will also provide him some albumin. He appears intravascularly depleted, once his blood pressure better stabilizes he will likely need to be dialyzed in the a.m. his initial troponin was also elevated at 0.123 however he is not complaining of any chest pain. I feel that this is likely elevated secondary to his end-stage renal disease as when compared to previous labs he also had an elevated troponin on 05/08/2017 of 0.134. Will also obtain a wound care consult for his sacral wounds. I did discuss the patient's condition with his son at the bedside extensively. There was discussion regarding patient's CODE STATUS and the patient son would like to discuss with his family regarding changing CODE STATUS to possibly a DNR at the current time patient is a FULL CODE. Based on the patient's condition as well as his previous hospital admission and his extensive age and comorbidities I do feel like the patient will benefit from a palliative care consult. DVT and GI prophylaxis: SCDs, acid felix Further treatment strategy will be implemented as per the clinical course Problems: HPI/ROS Admit Date/Time Admit Date/Time May 15, 2017 at 20:02 Hx of Present Illness Chief complaint: Low blood pressure doing dialysis This 89-year-old male who was sent here from dialysis because of low blood pressure. Patient was discharged from this hospital a few days ago for symptomatic anemia requiring blood transfusion. Patient had dialysis on Sunday successfully. Today he went to dialysis and they do not do it because his blood pressure was 90/40. Patient takes metoprolol 12.5 mg twice daily. Upon my examination patient did awake occasionally look around however he did appear confused. Patient was not conversive. Son was at the bedside who does state that the patient does have dementia. Son reports that the patient still urinates as well in his diaper. Patient states that his father's condition has started to decline in the recent past. Patient denied any chest pain. Patient' s son does state that he has had very poor appetite and has been drinking very minimal amount of water. Of note patient was recently discharged and it was noted that the patient was experiencing failure to thrive. He was not considered a candidate for anticoagulation secondary to patient's anemia. Allergies: NKDA Medications: See NATALIE BHATT Subjective hx not possible: pt critical, other ( unable to properly verbalize secondary to dementia as well as likely current illness) PMH/Family/Social Past Medical History UTI, prior thrombocytopenia, anemia of chronic disease, end-stage renal disease on dialysis. BPH, adult-onset diabetes, history of pacemaker placement, prior stroke Past Surgical History Right chest dialysis catheter placement in the past, pacemaker placement and catheterization. Past Surgical Hx: other Family History Significant Family History: no pertinent family hx Social History Alcohol Use: none Smoking Status: Former smoker Drug Use: none Exam/Review of Systems Vital Signs Vitals Vital Signs Date Time Temp Pulse Resp B/P Pulse Ox O2 Delivery O2 Flow Rate FiO2 05/16/17 04:00 72 05/15/17 22:40 Nasal Cannula 2.0 05/15/17 21:58 97.8 17 119/62 100 Exam Exam General: This is a very unfortunate and frail-appearing man lying in bed in no acute distress HEENT: Atraumatic, normocephalic. The pupils are equal, round and reactive. Extraocular motor are intact, mucous membranes dry Neck: Supple with full range of motion. No rigidity or meningismus Chest: Nontender Lungs: Coarse breath sounds bilaterally, mild crackles at the base Heart: Normal S1-S2, Regular rhythm and rate. Abdomen: Soft , nontender, nondistended , bowel sounds are present. No guarding no rebound tenderness Extremities: Normal to inspection, no edema no cyanosis Neurologic: Patient is arousable however he is minimally conversive with us on, further neurological exam was not able to be done secondary to patient's clinical condition/dementia. Skin: Sacral skin wound, skin tenting of the hands Additional Comments PROCEDURE: XR Chest 1 view. CLINICAL INDICATION: Chest pain. TECHNIQUE: AP views of the chest were obtained. COMPARISON: April 25, 2017 FINDINGS: The heart is large. Calcified atherosclerosis is noted in the aorta. Left- sided dual chamber pacemaker has its leads over the heart and appears stable. Right-sided dialysis catheter is unchanged. Central pulmonary vascular congestion and interstitial prominence is seen in both lungs. Bilateral mid and lower lung infiltrates, combined with moderate pleural effusions are identified. Osseous structures are intact. IMPRESSION: Cardiomegaly with calcified atherosclerosis in the aorta. Central pulmonary vascular congestion and interstitial prominence in both lungs. Bilateral mid and lower lung infiltrates, combined with moderate pleural effusions. RPTAT: AA .Fer Reddy MD, Date Time Electronically viewed and signed by .Fer Reddy MD, MD on 05/15/2017 18:19 .P/ CC: ROLANDO ALLEN DO EKG: Rate/Rhythm: Normal sinus rhythm, left axis deviation, RSR pattern, inferior Q waves QRS, ST, QT: NORMAL ID, QRS, QT] Impression: Abnormal EKG As per ED physician documentation Labs Result Diagram: 05/15/17 1735 05/15/17 173 Medications Medications Current Medications Sodium Chloride (NS) 1,000 ml @ 80 mls/hr [id number] IV Last administered on t 02:00; Admin Dose 80 MLS/HR; Start 05/15/17 at 20:00; Stop 05/16/17 at 08:29 Ondansetron HCl (Zofran Inj) 4 mg Q6H PRN IV NAUSEA AND/OR VOMITING; Start at 21:30 Acetaminophen (Tylenol Tab) 650 mg Q6H PRN PO PAIN LEVEL 1-3 OR FEVER; Start 05/15/17 at 21:30 Docusate Sodium (Colace) 100 mg Q12H PRN PO CONSTIPATION; Start 05/15/17 at 21 :30 Bisacodyl (Dulcolax) 5 mg DAILY PRN PO CONSTIPATION; Start 05/15/17 at 21:30 Famotidine (Pepcid) 20 mg DAILY PO ; Start 05/16/17 at 09:00 Aspirin (Halfprin) 81 mg DAILY PO ; Start 05/16/17 at 09:00 Atorvastatin Calcium (Lipitor) 20 mg HS PO ; Start 05/16/17 at 21:00 Donepezil HCl (Aricept) 5 mg DAILY PO ; Start 05/16/17 at 09:00 Folic Acid (Folic Acid) 1 mg DAILY PO ; Start 05/16/17 at 09:00 Loratadine (Claritin) 10 mg DAILY PO ; Start 05/16/17 at 09:00 Megestrol Acetate (Megace) 40 mg DAILY PO ; Start 05/16/17 at 09:00 Diagnostic Test (Pha) (Accu-Chek) 1 ea 02 XX ; Start 05/16/17 at 02:00 Miscellaneous Information 1 ea NOTE XX ; Start 05/15/17 at 22:00 Glucose (Glutose) 15 gm Q15M PRN PO DECREASED GLUCOSE; Start 05/15/17 at 22:00 Glucose (Glutose) 22.5 gm Q15M PRN PO DECREASED GLUCOSE; Start 05/15/17 at 22: 00 Dextrose (D50w Syringe) 25 ml Q15M PRN IV DECREASED GLUCOSE; Start 05/15/17 at 22:00 Dextrose (D50w Syringe) 50 ml Q15M PRN IV DECREASED GLUCOSE; Start 05/15/17 at 22:00 Glucagon (Glucagen) 1 mg Q15M PRN IM DECREASED GLUCOSE; Start 05/15/17 at 22: 00 Glucose 15 gm 15 gm Q15M PRN BUCCAL DECREASED GLUCOSE; Start 05/15/17 at 22:00 Sodium Chloride 1,000 ml @ 50 mls/hr Q20H IV ; Start 05/16/17 at 01:30 Cefepime HCl (Maxipime 1gm/50 ml (Pmx)) 50 ml @ 100 mls/hr DAILY IVPB ; Start 05/16/17 at 09:00 SUNIL GARCIA May 16, 2017 04:26
[2017-05-16] MEDS: ACCU-CHEK XX SCH (06:55)
[2017-05-16] MEDS: INSULIN ASPART [NOVOLOG] 3 ML PEN SC SCH ×5 (07:35→21:00)
[2017-05-16] MEDS: FAMOTIDINE 20 MG TAB PO SCH (09:10)
[2017-05-16] MEDS: ASPIRIN (EC) 81 MG TAB PO SCH (09:10)
[2017-05-16] MEDS: MEGESTROL 40 MG TAB PO SCH (09:11)
--- NOTE | 2017-05-16 09:12 | CONS ---
Date/Time of Note Date/Time of Note DATE: 05/16/17 TIME: 09:00 Assessment/Plan Assessment/Plan Chief Complaint/Hosp Course 1. abnormal ECG with Wide complex QRS: most likely due to intermittent paced rhythm 2. hypotension 3. ESRD ON HD 4. HX CAD, NV 5. HX dementia 6. P afib 7. sick sinus syndrome 8. s/p PPM 9/ encephalopathy 10. hx CVA 11. severe and worsening anemia . 12. Dyslipidemia: on lipitor Recommendations: HD as per renal will try to get information on pacemaker to have it interrogated. pt has not been anticoagulated due to concerns about anemia, fall and bleeding. low dose betablocker if BP remains stable enough to tolerate it. cont ASA cont lipitor Thank you for his referral. I will continue to follow along with you. MELVIN BRODERICK MD [facility] Problems: Consultation Date/Type/Reason Admit Date/Time May 15, 2017 at 20:02 Date of Consultation: May 16, 2017 Type of Consultation: cardiology Reason for Consultation abnormal ECG, intermittent bundle branch block Referring Provider: SUNIL GARCIA of Present Illness CHIEF COMPLAINT: hypotension HISTORY OF PRESENT ILLNESS: Thank you for this referral. History obtained from the patient's chart, discussion with , and discussion with the staff. This is a pleasant 89-year-old gentleman with multiple complicated medical history who was brought into the emergency room because of hypotension from dialysis unit. pt was supposed to get HD yesterday but was noted to be severely hypotensive and he was sent to ER. pt is nonverbal. on monitor he was noted to have episodes of what appear to be " bundle branch block" and I was kindly asked to evaluate. The patient was recently admitted to b/c he was noted to have a hemoglobin of 6. he was treated for multiple disorders since he has been in the hospital. on the last admission He was also noted to have intermittent arrhythmia for which I was kindly asked to evaluate and treat. He has had frequent PVCs and bigeminies mostly during dialysis. He has also had episodes of paroxysmal atrial fibrillation with rapid ventricular response as well too. PAST MEDICAL HISTORY: History of sick sinus syndrome, status post permanent pacemaker. at this time I do not know which company it is but previous family has stated that he has had it checked apparently within the past month, and it has been normal. renal failure on dialysis, history of NV apparently many years ago, history of stroke many years ago, history of dyslipidemia, dementia, diabetes, hx hypertension but recently mostly hypotensive . MEDICATIONS: as per Medical reconciliation, personally reviewed. SURGICAL HISTORY: History of dialysis catheter placement, pacemaker placement a few years ago. SOCIAL HISTORY: The patient is a former smoker. Does not smoke or drink at this point. FAMILY HISTORY: No reported coronary artery disease. ALLERGIES: NO REPORTED ALLERGIES. REVIEW OF SYSTEMS: As above-mentioned, patient does not verbalize. Past Surgical History Past Surgical Hx: other Social History Alcohol Use: none Smoking Status: Former smoker Drug Use: none Exam/Review of Systems Vital Signs Vitals Vital Signs Date Time Temp Pulse Resp B/P Pulse Ox O2 Delivery O2 Flow Rate FiO2 05/16/17 08:00 75 05/16/17 07:26 98.8 16 135/61 97 Room Air 05/16/17 04:20 2.0 Exam General: thin man. no acute distress HEENT: NC/AT. pupils are equal. round. NECK: . no stridor. CV: RRR. systolic murmur; no gallop or rubs. PULM: no wheezing. + mild rhonchi. GI: SOFT, NT, ND, no rebound or guarding Extremity: trace B/L LE edema. no clubbing. neuro: awake and alert, does not answer my questions. Psych: appears anxious rectal: deferred : normal ECG NSR. ECHO reviewed recently: 1. Normal left ventricular systolic function. Normal left ventricular cavity size. Left ventricle not well visualized. Moderate concentric left ventricular hypertrophy. Ejection fraction is visually estimated at 60 %. Abnormal Diastolic Function. 2. Mitral valve is not well visualized. Mild mitral leaflet calcification. Mild mitral annular calcification. Trace mitral regurgitation. 3. Aortic valve not well visualized. Moderate aortic stenosis. Aortic valve Max velocity 2.90 m/sec. Max PG 34.00 mmHg. Mean PG 18.00 mmHg. Aortic cusps appear moderately calcified. 4. Normal appearance of the tricuspid valve. Tricuspid valve not well visualized. Estimated peak PA systolic pressure 29 mmHg. There is mild tricuspid regurgitation. 5. very suboptimal study. Results Result Diagram: 05/16/17 0441 05/16/17 044 Results 24 hrs Laboratory Tests Test 05/15/17 17:35 05/15/17 18:45 05/15/17 23:05 05/16/17 01:17 White Blood Count 9.6 Red Blood Count 3.91 #L Hemoglobin 10.8 #L Hematocrit 35.5 #L Mean Corpuscular Volume 90.8 Mean Corpuscular Hemoglobin 27.6 L Mean Corpuscular Hemoglobin Concent 30.4 L Red Cell Distribution Width 18.0 H Platelet Count 166 Mean Platelet Volume 11.2 H Neutrophils % 76.7 Lymphocytes % 10.3 L Monocytes % 8.9 Eosinophils % 3.2 Basophils % 0.4 Nucleated Red Blood Cells % 0.0 Neutrophils # 7.4 Lymphocytes # 1.0 Monocytes # 0.9 Eosinophils # 0.3 Basophils # 0.0 Nucleated Red Blood Cells # 0.0 Prothrombin Time 14.2 Prothrombin Time Ratio 1.1 INR International Normalized Ratio 1.10 Activated Partial Thromboplast Time 41.0 H Sodium Level 148 H Potassium Level 4.9 Chloride Level 112 H Carbon Dioxide Level 27 Anion Gap 14 Blood Urea Nitrogen 70 H Creatinine 8.11 H Glucose Level 138 Calcium Level 7.3 L Total Bilirubin 0.1 L Direct Bilirubin 0.00 Indirect Bilirubin 0.1 Aspartate Amino Transf (AST/SGOT) 32 Alanine Aminotransferase (ALT/SGPT) 24 Alkaline Phosphatase 261 H Troponin I 0.123 *H Total Protein 5.7 L Albumin 2.1 L Globulin 3.60 H Albumin/Globulin Ratio 0.58 Lactic Acid Level 2.5 *H 3.3 *H 2.8 *H Test 05/16/17 04:41 05/16/17 07:48 White Blood Count 10.3 Red Blood Count 3.26 L Hemoglobin 8.8 L Hematocrit 29.6 L Mean Corpuscular Volume 90.8 Mean Corpuscular Hemoglobin 27.0 L Mean Corpuscular Hemoglobin Concent 29.7 L Red Cell Distribution Width 18.4 H Platelet Count 139 L Mean Platelet Volume 11.6 H Neutrophils % 74.5 Lymphocytes % 8.9 L Monocytes % 10.4 Eosinophils % 5.2 Basophils % 0.4 Nucleated Red Blood Cells % 0.0 Neutrophils # 7.7 H Lymphocytes # 0.9 Monocytes # 1.1 H Eosinophils # 0.5 Basophils # 0.0 Nucleated Red Blood Cells # 0.0 Sodium Level 151 H Potassium Level 5.0 Chloride Level 114 H Carbon Dioxide Level 26 Anion Gap 16 Blood Urea Nitrogen 72 H Creatinine 7.91 H Glucose Level 100 Calcium Level 7.1 L Magnesium Level 2.2 Total Bilirubin 0.1 L Direct Bilirubin 0.00 Indirect Bilirubin 0.1 Aspartate Amino Transf (AST/SGOT) 26 Alanine Aminotransferase (ALT/SGPT) 27 Alkaline Phosphatase 192 H Creatine Kinase 80 Creatine Kinase Index 2.7 Creatinine Kinase MB (Mass) 2.15 Troponin I 0.117 B-Type Natriuretic Peptide 48234 H Total Protein 5.0 L Albumin 2.0 L Globulin 3.00 Albumin/Globulin Ratio 0.66 Bedside Glucose 89 Medications Medications Current Medications Ondansetron HCl (Zofran Inj) 4 mg Q6H PRN IV NAUSEA AND/OR VOMITING; Start at 21:30 Acetaminophen (Tylenol Tab) 650 mg Q6H PRN PO PAIN LEVEL 1-3 OR FEVER; Start 05/15/17 at 21:30 Docusate Sodium (Colace) 100 mg Q12H PRN PO CONSTIPATION; Start 05/15/17 at 21 :30 Bisacodyl (Dulcolax) 5 mg DAILY PRN PO CONSTIPATION; Start 05/15/17 at 21:30 Famotidine (Pepcid) 20 mg DAILY PO ; Start 05/16/17 at 09:00 Aspirin (Halfprin) 81 mg DAILY PO ; Start 05/16/17 at 09:00 Atorvastatin Calcium (Lipitor) 20 mg HS PO ; Start 05/16/17 at 21:00 Donepezil HCl (Aricept) 5 mg DAILY PO ; Start 05/16/17 at 09:00 Folic Acid (Folic Acid) 1 mg DAILY PO ; Start 05/16/17 at 09:00 Loratadine (Claritin) 10 mg DAILY PO ; Start 05/16/17 at 09:00 Megestrol Acetate (Megace) 40 mg DAILY PO ; Start 05/16/17 at 09:00 Diagnostic Test (Pha) (Accu-Chek) 1 ea 02 XX ; Start 05/16/17 at 02:00 Miscellaneous Information 1 ea NOTE XX ; Start 05/15/17 at 22:00 Glucose (Glutose) 15 gm Q15M PRN PO DECREASED GLUCOSE; Start 05/15/17 at 22:00 Glucose (Glutose) 22.5 gm Q15M PRN PO DECREASED GLUCOSE; Start 05/15/17 at 22: 00 Dextrose (D50w Syringe) 25 ml Q15M PRN IV DECREASED GLUCOSE; Start 05/15/17 at 22:00 Dextrose (D50w Syringe) 50 ml Q15M PRN IV DECREASED GLUCOSE; Start 05/15/17 at 22:00 Glucagon (Glucagen) 1 mg Q15M PRN IM DECREASED GLUCOSE; Start 05/15/17 at 22: 00 Glucose 15 gm 15 gm Q15M PRN BUCCAL DECREASED GLUCOSE; Start 05/15/17 at 22:00 Sodium Chloride 1,000 ml @ 50 mls/hr Q20H IV ; Start 05/16/17 at 01:30 Cefepime HCl (Maxipime 1gm/50 ml (Pmx)) 50 ml @ 100 mls/hr DAILY IVPB ; Start 05/16/17 at 09:00 MELVIN BRODERICK MD May 16, 2017 09:11
[2017-05-16] MEDS: DEXTROSE 5% 1,000 ML IV SCH (09:25)
[2017-05-16] MEDS: CEFEPIME 1GM/50 ML (PMX) 50 ML IVPB SCH (10:34)
[2017-05-16] MEDS: FOLIC ACID 1 MG TAB PO SCH (10:35)
[2017-05-16] MEDS: LORATADINE 10 MG TAB PO SCH (10:35)
[2017-05-16] MEDS: DONEPEZIL 5 MG TAB PO SCH (10:36)
--- NOTE | 2017-05-16 12:41 | CONS ---
Date/Time of Note Date/Time of Note DATE: 05/16/17 TIME: 12:34 Assessment/Plan Assessment/Plan Chief Complaint/Hosp Course - ESRD ON HEMODIALYSIS - ANEMIA - PNEUMONIA - CAD / CHF - HYPOTENSION - DM - LOW ALBUMIN plan: Bedside dialysis D/W son & at this point he agrees with SNF Will have SNF evaluate him Minimal UF due to low BP Will give Midodrine prior to HD H/H stable Problems: Consultation Date/Type/Reason Admit Date/Time May 15, 2017 at 20:02 Date of Consultation: May 16, 2017 Type of Consultation: NEPHROLOGY Reason for Consultation ESRD ON HEMODIALYSIS Subjective hx not possible: pt non-verbal Constitutional: no complaints Eyes: no complaints ENT: no complaints Past Medical History Medical History: congestive heart failure, coronary artery disease, diabetes, GI bleed Past Surgical History Past Surgical Hx: other Family History Significant Family History: no pertinent family hx Social History Alcohol Use: none Smoking Status: Former smoker Drug Use: none Exam/Review of Systems Vital Signs Vitals Vital Signs Date Time Temp Pulse Resp B/P Pulse Ox O2 Delivery O2 Flow Rate FiO2 05/16/17 12:28 98.6 75 18 129/76 97 Room Air 05/16/17 04:20 2.0 Exam Constitutional: non-verbal Psych: no complaints Head: normocephalic Neck: jvd Respiratory: crackles/rales Cardiovascular: regular rate and rhythm, systolic murmur Gastrointestinal: soft Results Result Diagram: 05/16/17 0441 05/16/17 0441 Results 24 hrs Laboratory Tests Test 05/15/17 17:35 05/15/17 18:45 05/15/17 23:05 05/16/17 01:17 White Blood Count 9.6 Red Blood Count 3.91 #L Hemoglobin 10.8 #L Hematocrit 35.5 #L Mean Corpuscular Volume 90.8 Mean Corpuscular Hemoglobin 27.6 L Mean Corpuscular Hemoglobin Concent 30.4 L Red Cell Distribution Width 18.0 H Platelet Count 166 Mean Platelet Volume 11.2 H Neutrophils % 76.7 Lymphocytes % 10.3 L Monocytes % 8.9 Eosinophils % 3.2 Basophils % 0.4 Nucleated Red Blood Cells % 0.0 Neutrophils # 7.4 Lymphocytes # 1.0 Monocytes # 0.9 Eosinophils # 0.3 Basophils # 0.0 Nucleated Red Blood Cells # 0.0 Prothrombin Time 14.2 Prothrombin Time Ratio 1.1 INR International Normalized Ratio 1.10 Activated Partial Thromboplast Time 41.0 H Sodium Level 148 H Potassium Level 4.9 Chloride Level 112 H Carbon Dioxide Level 27 Anion Gap 14 Blood Urea Nitrogen 70 H Creatinine 8.11 H Glucose Level 138 Calcium Level 7.3 L Total Bilirubin 0.1 L Direct Bilirubin 0.00 Indirect Bilirubin 0.1 Aspartate Amino Transf (AST/SGOT) 32 Alanine Aminotransferase (ALT/SGPT) 24 Alkaline Phosphatase 261 H Troponin I 0.123 *H Total Protein 5.7 L Albumin 2.1 L Globulin 3.60 H Albumin/Globulin Ratio 0.58 Lactic Acid Level 2.5 *H 3.3 *H 2.8 *H Test 05/16/17 04:41 05/16/17 07:48 White Blood Count 10.3 Red Blood Count 3.26 L Hemoglobin 8.8 L Hematocrit 29.6 L Mean Corpuscular Volume 90.8 Mean Corpuscular Hemoglobin 27.0 L Mean Corpuscular Hemoglobin Concent 29.7 L Red Cell Distribution Width 18.4 H Platelet Count 139 L Mean Platelet Volume 11.6 H Neutrophils % 74.5 Lymphocytes % 8.9 L Monocytes % 10.4 Eosinophils % 5.2 Basophils % 0.4 Nucleated Red Blood Cells % 0.0 Neutrophils # 7.7 H Lymphocytes # 0.9 Monocytes # 1.1 H Eosinophils # 0.5 Basophils # 0.0 Nucleated Red Blood Cells # 0.0 Sodium Level 151 H Potassium Level 5.0 Chloride Level 114 H Carbon Dioxide Level 26 Anion Gap 16 Blood Urea Nitrogen 72 H Creatinine 7.91 H Glucose Level 100 Calcium Level 7.1 L Magnesium Level 2.2 Total Bilirubin 0.1 L Direct Bilirubin 0.00 Indirect Bilirubin 0.1 Aspartate Amino Transf (AST/SGOT) 26 Alanine Aminotransferase (ALT/SGPT) 27 Alkaline Phosphatase 192 H Creatine Kinase 80 Creatine Kinase Index 2.7 Creatinine Kinase MB (Mass) 2.15 Troponin I 0.117 B-Type Natriuretic Peptide 76498 H Total Protein 5.0 L Albumin 2.0 L Globulin 3.00 Albumin/Globulin Ratio 0.66 Bedside Glucose 89 Medications Medications Current Medications Ondansetron HCl (Zofran Inj) 4 mg Q6H PRN IV NAUSEA AND/OR VOMITING; Start at 21:30 Acetaminophen (Tylenol Tab) 650 mg Q6H PRN PO PAIN LEVEL 1-3 OR FEVER; Start 05/15/17 at 21:30 Docusate Sodium (Colace) 100 mg Q12H PRN PO CONSTIPATION; Start 05/15/17 at 21 :30 Bisacodyl (Dulcolax) 5 mg DAILY PRN PO CONSTIPATION; Start 05/15/17 at 21:30 Famotidine (Pepcid) 20 mg DAILY PO Last administered on 05/16/17 09:10; Admin Dose 20 MG; Start 05/16/17 at 09:00 Aspirin (Halfprin) 81 mg DAILY PO Last administered on 05/16/17 09:10; Admin Dose 81 MG; Start 05/16/17 at 09:00 Atorvastatin Calcium (Lipitor) 20 mg HS PO ; Start 05/16/17 at 21:00 Donepezil HCl (Aricept) 5 mg DAILY PO Last administered on 05/16/17 10:36; Admin Dose 5 MG; Start 05/16/17 at 09:00 Folic Acid (Folic Acid) 1 mg DAILY PO Last administered on 05/16/17 10:35; Admin Dose 1 MG; Start 05/16/17 at 09:00 Loratadine (Claritin) 10 mg DAILY PO Last administered on 05/16/17 10:35; Admin Dose 10 MG; Start 05/16/17 at 09:00 Megestrol Acetate (Megace) 40 mg DAILY PO Last administered on 05/16/17 09:11 ; Admin Dose 40 MG; Start 05/16/17 at 09:00 Diagnostic Test (Pha) (Accu-Chek) 1 ea 02 XX ; Start 05/16/17 at 02:00 Miscellaneous Information 1 ea NOTE XX ; Start 05/15/17 at 22:00 Glucose (Glutose) 15 gm Q15M PRN PO DECREASED GLUCOSE; Start 05/15/17 at 22:00 Glucose (Glutose) 22.5 gm Q15M PRN PO DECREASED GLUCOSE; Start 05/15/17 at 22: 00 Dextrose (D50w Syringe) 25 ml Q15M PRN IV DECREASED GLUCOSE; Start 05/15/17 at 22:00 Dextrose (D50w Syringe) 50 ml Q15M PRN IV DECREASED GLUCOSE; Start 05/15/17 at 22:00 Glucagon (Glucagen) 1 mg Q15M PRN IM DECREASED GLUCOSE; Start 05/15/17 at 22: 00 Glucose 15 gm 15 gm Q15M PRN BUCCAL DECREASED GLUCOSE; Start 05/15/17 at 22:00 Cefepime HCl 50 ml @ 100 mls/hr DAILY IVPB Last administered on 05/16/17 10: 34; Admin Dose 100 MLS/HR; Start 05/16/17 at 09:00 Dextrose (D5W) 1,000 ml @ 50 mls/hr Q20H IV Last administered on 05/16/17 09 :25; Admin Dose 50 MLS/HR; Start 05/16/17 at 09:00 Miscellaneous Information (*Rx Drug Level Order Reminder*) VANCO RANDOM W/ AM LABS... ONCE ONCE XX ; Start 05/17/17 at 05:00; Stop 05/17/17 at 05:01 Sulfacetamide Sodium (Bleph-10 Oph Drop) 1 drop BID BOTH EYES ; Start 05/16/17 at 21:00 DENVER ANTONY MD May 16, 2017 12:41
[2017-05-16] MEDS ORDERED: ALBUMIN HUMAN 25% 100 ML IV PRN (13:00)
--- NOTE | 2017-05-16 18:16 | PN ---
Date/Time of Note Date/Time of Note DATE: 05/16/17 TIME: 18:04 Assessment/Plan VTE Prophylaxis VTE Prophylaxis Intervention: contraindicated Lines/Catheters IV Catheter Type (from Nrsg): Saline Lock Assessment/Plan Assessment/Plan 1. hypotension secondary to dehydration and/or possible early sepsis - Patient given gentle hydration give fluid overload status but does appear to be intravascularly depleted - Will give IVF and continue to monitor - Midodrine prior to HD 2. Sepsis secondary to HCAP - Lactic acid has been trending down and will continue to monitor until normalizes - On IV antibiotics - remains afebrile 3. Anemia, chronic, CKD related, s/p transfusion - Continue to monitor and transfuse if <7 4. ESRD, DD, on HD, electrolyte abnormalities - Nephrology on board and consultation appreciated - HD at bedside planned 5. Hypernatremia - Will start on D5W and monitor 6. fail to thrive, malnutrition with hypoalbuminemia, - Will encourage PO intake 7. paroxysmal atrial fibrillation, sinus rhythm, on metoprolol, not a candidate for anticoagulant - Cardiology on board and consultation appreciated 8. history of cerebrovascular accident 9. aortic stenosis 10. sick sinus syndrome status post permanent pacemaker 11. dyslipidemia, on statin 12. dementia, chronic, stable 13. Disposition - When medically stable will pursue SNF placement Subjective 24 Hr Interval Summary Free Text/Dictation Patient opening eyes when spoken to and nods head yes when asked if he was doing okay. Son at bedside and explained reason patient presented to ED. States was stable after recent discharge but hypotensive at HD yesterday. Exam/Review of Systems Vital Signs Vitals Vital Signs Date Time Temp Pulse Resp B/P Pulse Ox O2 Delivery O2 Flow Rate FiO2 05/16/17 17:37 107 05/16/17 15:51 97.8 17 127/70 99 Nasal Cannula 2.0 Exam General: frail appearing, NAD, opens eyes but not verbalizing HEENT: Atraumatic, normocephalic. The pupils are equal, round and reactive. Extraocular motor are intact, mucous membranes dry Neck: Supple with full range of motion. No rigidity or meningismus Chest: Nontender Lungs: Coarse breath sounds bilaterally, mild crackles at the base Heart: Normal S1-S2, Regular rhythm and rate. Abdomen: Soft , nontender, nondistended , bowel sounds are present. No guarding no rebound tenderness Extremities: Normal to inspection, no edema no cyanosis Skin: Sacral skin wound, skin tenting of the hands Results Result Diagram: 05/16/1744005/16/17 0441 Results 24 hrs Laboratory Tests Test 05/15/17 18:45 05/15/17 23:05 05/16/17 01:17 05/16/17 04:41 Lactic Acid Level 2.5 *H 3.3 *H 2.8 *H White Blood Count 10.3 Red Blood Count 3.26 L Hemoglobin 8.8 L Hematocrit 29.6 L Mean Corpuscular Volume 90.8 Mean Corpuscular Hemoglobin 27.0 L Mean Corpuscular Hemoglobin Concent 29.7 L Red Cell Distribution Width 18.4 H Platelet Count 139 L Mean Platelet Volume 11.6 H Neutrophils % 74.5 Lymphocytes % 8.9 L Monocytes % 10.4 Eosinophils % 5.2 Basophils % 0.4 Nucleated Red Blood Cells % 0.0 Neutrophils # 7.7 H Lymphocytes # 0.9 Monocytes # 1.1 H Eosinophils # 0.5 Basophils # 0.0 Nucleated Red Blood Cells # 0.0 Sodium Level 151 H Potassium Level 5.0 Chloride Level 114 H Carbon Dioxide Level 26 Anion Gap 16 Blood Urea Nitrogen 72 H Creatinine 7.91 H Glucose Level 100 Calcium Level 7.1 L Magnesium Level 2.2 Total Bilirubin 0.1 L Direct Bilirubin 0.00 Indirect Bilirubin 0.1 Aspartate Amino Transf (AST/SGOT) 26 Alanine Aminotransferase (ALT/SGPT) 27 Alkaline Phosphatase 192 H Creatine Kinase 80 Creatine Kinase Index 2.7 Creatinine Kinase MB (Mass) 2.15 Troponin I 0.117 B-Type Natriuretic Peptide 62859 H Total Protein 5.0 L Albumin 2.0 L Globulin 3.00 Albumin/Globulin Ratio 0.66 Test 05/16/17 07:48 05/16/17 12:04 05/16/17 12:32 05/16/17 17:31 Bedside Glucose 89 126 135 Creatine Kinase 81 Creatine Kinase Index 4.1 Creatinine Kinase MB (Mass) 3.30 H Troponin I 0.096 Medications Medications Current Medications Ondansetron HCl (Zofran Inj) 4 mg Q6H PRN IV NAUSEA AND/OR VOMITING; Start at 21:30 Acetaminophen (Tylenol Tab) 650 mg Q6H PRN PO PAIN LEVEL 1-3 OR FEVER; Start 05/15/17 at 21:30 Docusate Sodium (Colace) 100 mg Q12H PRN PO CONSTIPATION; Start 05/15/17 at 21 :30 Bisacodyl (Dulcolax) 5 mg DAILY PRN PO CONSTIPATION; Start 05/15/17 at 21:30 Famotidine (Pepcid) 20 mg DAILY PO Last administered on 05/16/17 09:10; Admin Dose 20 MG; Start 05/16/17 at 09:00 Aspirin (Halfprin) 81 mg DAILY PO Last administered on 05/16/17 09:10; Admin Dose 81 MG; Start 05/16/17 at 09:00 Atorvastatin Calcium (Lipitor) 20 mg HS PO ; Start 05/16/17 at 21:00 Donepezil HCl (Aricept) 5 mg DAILY PO Last administered on 05/16/17 10:36; Admin Dose 5 MG; Start 05/16/17 at 09:00 Folic Acid (Folic Acid) 1 mg DAILY PO Last administered on 05/16/17 10:35; Admin Dose 1 MG; Start 05/16/17 at 09:00 Loratadine (Claritin) 10 mg DAILY PO Last administered on 05/16/17 10:35; Admin Dose 10 MG; Start 05/16/17 at 09:00 Megestrol Acetate (Megace) 40 mg DAILY PO Last administered on 05/16/17 09:11 ; Admin Dose 40 MG; Start 05/16/17 at 09:00 Diagnostic Test (Pha) (Accu-Chek) 1 ea 02 XX ; Start 05/16/17 at 02:00 Miscellaneous Information 1 ea NOTE XX ; Start 05/15/17 at 22:00 Glucose (Glutose) 15 gm Q15M PRN PO DECREASED GLUCOSE; Start 05/15/17 at 22:00 Glucose (Glutose) 22.5 gm Q15M PRN PO DECREASED GLUCOSE; Start 05/15/17 at 22: 00 Dextrose (D50w Syringe) 25 ml Q15M PRN IV DECREASED GLUCOSE; Start 05/15/17 at 22:00 Dextrose (D50w Syringe) 50 ml Q15M PRN IV DECREASED GLUCOSE; Start 05/15/17 at 22:00 Glucagon (Glucagen) 1 mg Q15M PRN IM DECREASED GLUCOSE; Start 10/17/17 at 22: 00 Glucose 15 gm 15 gm Q15M PRN BUCCAL DECREASED GLUCOSE; Start 05/15/17 at 22:00 Cefepime HCl 50 ml @ 100 mls/hr DAILY IVPB Last administered on 05/16/17 10: 34; Admin Dose 100 MLS/HR; Start 05/16/17 at 09:00 Dextrose (D5W) 1,000 ml @ 50 mls/hr Q20H IV Last administered on 05/16/17 09 :25; Admin Dose 50 MLS/HR; Start 05/16/17 at 09:00 Miscellaneous Information (*Rx Drug Level Order Reminder*) VANCO RANDOM W/ AM LABS... ONCE ONCE XX ; Start 05/17/17 at 05:00; Stop 05/17/17 at 05:01 Sulfacetamide Sodium (Bleph-10 Oph Drop) 1 drop BID BOTH EYES ; Start 05/16/17 at 21:00 VIV FORD MD May 16, 2017 18:16
[2017-05-16] MEDS: SULFACETAMIDE 10% 15 ML OPH BOTH EYES SCH (21:00)
[2017-05-16] MEDS: ATORVASTATIN 20 MG TAB PO SCH (21:20)
[2017-05-17] VITALS (11 sets, daily range): BP systolic 83–112; BP diastolic 52–64; PULSE 70–121; RESP 17–18
[2017-05-17] MEDS: ACCU-CHEK XX SCH (01:47)
[2017-05-17] MEDS: DEXTROSE 5% 1,000 ML IV SCH (05:10)
[2017-05-17] MEDS: ASPIRIN (EC) 81 MG TAB PO SCH (08:39)
[2017-05-17] MEDS: SULFACETAMIDE 10% 15 ML OPH BOTH EYES SCH ×2 (08:39→20:50)
[2017-05-17] MEDS: FAMOTIDINE 20 MG TAB PO SCH (08:40)
[2017-05-17] MEDS: DONEPEZIL 5 MG TAB PO SCH (08:40)
[2017-05-17] MEDS: CEFEPIME 1GM/50 ML (PMX) 50 ML IVPB SCH (08:40)
[2017-05-17] MEDS: FOLIC ACID 1 MG TAB PO SCH (08:40)
[2017-05-17] MEDS: LORATADINE 10 MG TAB PO SCH (08:40)
[2017-05-17] MEDS: MEGESTROL 40 MG TAB PO SCH (08:40)
[2017-05-17] MEDS: INSULIN ASPART [NOVOLOG] 3 ML PEN SC SCH ×4 (09:00→20:53)
--- NOTE | 2017-05-17 10:24 | CONS ---
Date/Time of Note Date/Time of Note DATE: 05/17/17 TIME: : Consult Date/Type/Reason Admit Date/Time May 15, 2017 at 20:02 Initial Consult Date 05/16/17 Type of Consultation: cardiology Ordering Provider: SUNIL GARCIA Subjective CARD F/U: S: D/W SON. D/W STAFF AND rhythm was reviewed. pt remains in mostly paced rhythm but frequent AFIB and even PVC, NSVT. remains nonverbal 0: General: thin man. no acute distress HEENT: NC/AT. pupils are equal. round. NECK: . no stridor. CV: irregularly irregular systolic murmur; no gallop or rubs. PULM: no wheezing. + mild rhonchi. GI: SOFT, NT, ND, no rebound or guarding Extremity: trace B/L LE edema. no clubbing. neuro: awake and alert, does not answer my questions. Psych: appears anxious rectal: deferred : normal ECG NSR. ECHO reviewed recently: 1. Normal left ventricular systolic function. Normal left ventricular cavity size. Left ventricle not well visualized. Moderate concentric left ventricular hypertrophy. Ejection fraction is visually estimated at 60 %. Abnormal Diastolic Function. 2. Mitral valve is not well visualized. Mild mitral leaflet calcification. Mild mitral annular calcification. Trace mitral regurgitation. 3. Aortic valve not well visualized. Moderate aortic stenosis. Aortic valve Max velocity 2.90 m/sec. Max PG 34.00 mmHg. Mean PG 18.00 mmHg. Aortic cusps appear moderately calcified. 4. Normal appearance of the tricuspid valve. Tricuspid valve not well visualized. Estimated peak PA systolic pressure 29 mmHg. There is mild tricuspid regurgitation. 5. very suboptimal study. Objective Vital Signs Date Time Temp Pulse Resp B/P Pulse Ox O2 Delivery O2 Flow Rate FiO2 05/17/17 08:00 102 05/17/17 07:43 98.1 18 94/52 94 05/16/17 20:00 Nasal Cannula 2.0 Intake and Output 05/16/17 05/16/17 05/17/17 15:00 23:00 07:00 Intake Total 500 ml 150 ml Output Total 1500 ml Balance -1000 ml 150 ml Results/Medications Result Diagram: 05/17/17 0510 05/17/17 0510 Results 24 hrs Laboratory Tests Test 05/16/17 12:04 05/16/17 12:32 05/16/17 17:31 05/16/17 18:39 Creatine Kinase 81 Creatine Kinase Index 4.1 Creatinine Kinase MB (Mass) 3.30 H Troponin I 0.096 Bedside Glucose 126 135 129 Test 05/16/17 18:55 05/16/17 20:18 05/17/17 05:10 05/17/17 08:59 Lactic Acid Level 1.6 Creatine Kinase 93 Creatine Kinase Index 3.5 Creatinine Kinase MB (Mass) 3.25 H Troponin I 0.109 Bedside Glucose 134 139 White Blood Count 11.9 H Red Blood Count 3.28 L Hemoglobin 8.8 L Hematocrit 29.4 L Mean Corpuscular Volume 89.6 Mean Corpuscular Hemoglobin 26.8 L Mean Corpuscular Hemoglobin Concent 29.9 L Red Cell Distribution Width 18.3 H Platelet Count 107 #L Mean Platelet Volume 11.5 H Neutrophils % 73.1 Lymphocytes % 11.6 L Monocytes % 9.4 Eosinophils % 5.1 Basophils % 0.2 Nucleated Red Blood Cells % 0.0 Neutrophils # 8.7 H Lymphocytes # 1.4 Monocytes # 1.1 H Eosinophils # 0.6 H Basophils # 0.0 Nucleated Red Blood Cells # 0.0 Sodium Level 140 Potassium Level 4.1 Chloride Level 106 Carbon Dioxide Level 26 Anion Gap 12 Blood Urea Nitrogen 48 #H Creatinine 5.95 H Glucose Level 123 Calcium Level 6.8 L Phosphorus Level 2.9 Magnesium Level 1.9 Albumin 2.1 L Random Vancomycin Level 9.6 Medications Current Medications Ondansetron HCl (Zofran Inj) 4 mg Q6H PRN IV NAUSEA AND/OR VOMITING; Start at 21:30 Acetaminophen (Tylenol Tab) 650 mg Q6H PRN PO PAIN LEVEL 1-3 OR FEVER; Start 05/15/17 at 21:30 Docusate Sodium (Colace) 100 mg Q12H PRN PO CONSTIPATION; Start 05/15/17 at 21 :30 Bisacodyl (Dulcolax) 5 mg DAILY PRN PO CONSTIPATION; Start 05/15/17 at 21:30 Famotidine (Pepcid) 20 mg DAILY PO Last administered on 05/17/17 08:40; Admin Dose 20 MG; Start 05/16/17 at 09:00 Aspirin (Halfprin) 81 mg DAILY PO Last administered on 05/17/17 08:39; Admin Dose 81 MG; Start 05/16/17 at 09:00 Atorvastatin Calcium (Lipitor) 20 mg HS PO Last administered on 05/16/17 21: 20; Admin Dose 20 MG; Start 05/16/17 at 21:00 Donepezil HCl (Aricept) 5 mg DAILY PO Last administered on 05/17/17 08:40; Admin Dose 5 MG; Start 05/16/17 at 09:00 Folic Acid (Folic Acid) 1 mg DAILY PO Last administered on 05/17/17 08:40; Admin Dose 1 MG; Start 05/16/17 at 09:00 Loratadine (Claritin) 10 mg DAILY PO Last administered on 05/17/17 08:40; Admin Dose 10 MG; Start 05/16/17 at 09:00 Megestrol Acetate (Megace) 40 mg DAILY PO Last administered on 05/17/17 08:40 ; Admin Dose 40 MG; Start 05/16/17 at 09:00 Diagnostic Test (Pha) (Accu-Chek) 1 ea 02 XX ; Start 05/16/17 at 02:00 Miscellaneous Information 1 ea NOTE XX ; Start 05/15/17 at 22:00 Glucose (Glutose) 15 gm Q15M PRN PO DECREASED GLUCOSE; Start 05/15/17 at 22:00 Glucose (Glutose) 22.5 gm Q15M PRN PO DECREASED GLUCOSE; Start 05/15/17 at 22: 00 Dextrose (D50w Syringe) 25 ml Q15M PRN IV DECREASED GLUCOSE; Start 05/15/17 at 22:00 Dextrose (D50w Syringe) 50 ml Q15M PRN IV DECREASED GLUCOSE; Start 05/15/17 at 22:00 Glucagon (Glucagen) 1 mg Q15M PRN IM DECREASED GLUCOSE; Start 05/15/17 at 22: 00 Glucose 15 gm 15 gm Q15M PRN BUCCAL DECREASED GLUCOSE; Start 05/15/17 at 22:00 Cefepime HCl 50 ml @ 100 mls/hr DAILY IVPB Last administered on 05/17/17 08: 40; Admin Dose 100 MLS/HR; Start 05/16/17 at 09:00 Dextrose (D5W) 1,000 ml @ 50 mls/hr Q20H IV Last administered on 05/17/17 05 :10; Admin Dose 50 MLS/HR; Start 05/16/17 at 09:00 Sulfacetamide Sodium (Bleph-10 Oph Drop) 1 drop BID BOTH EYES Last administered on 05/17/17 08:39; Admin Dose 1 DROP; Start 05/16/17 at 21:00 Assessment/Plan Chief Complaint/Hosp Course 1. abnormal ECG with Wide complex QRS: most likely due to intermittent paced rhythm and PVC, NSVT 2. hypotension 3. ESRD ON HD 4. HX CAD, [place] 5. HX dementia 6. P afib 7. sick sinus syndrome 8. s/p PPM 9/ encephalopathy 10. hx CVA 11. severe and worsening anemia . 12. Dyslipidemia: on lipitor Recommendations: HD as per renal Pacemaker was interrogated 05.16.17 and personally reviewed. normal pacing function pt has not been anticoagulated due to concerns about anemia, fall and bleeding. low dose betablocker if BP remains stable enough to tolerate it. cont ASA cont lipitor will start patient on amiodarone [place] Thank you for his referral. I will continue to follow along with you. MELVIN BRODERICK MD [facility] Problems: MELVIN BRODERICK MD May 17, 2017 10:24
[2017-05-17] MEDS ORDERED: AMIODARONE 150MG/D5W BOLUS 100 ML IV ONE (10:30)
[2017-05-17] MEDS: AMIODARONE 900 MG in DEXTROSE 5% 482 ML IV SCH ×2 (12:10→18:16)
[2017-05-17] MEDS ORDERED: VANCOMYCIN 1 GM in NS 250 ML IVPB SCH (12:30)
--- NOTE | 2017-05-17 14:51 | PN ---
Date/Time of Note Date/Time of Note DATE: 05/17/17 TIME: 14:45 Assessment/Plan VTE Prophylaxis VTE Prophylaxis Intervention: contraindicated Lines/Catheters IV Catheter Type (from Nrsg): Saline Lock Assessment/Plan Assessment/Plan 1. Hypotension secondary to dehydration and/or possible early sepsis- improving - MAP has remained above 60 over the last 24 hours. - Midodrine prior to HD 2. Sepsis secondary to HCAP - Lactic acid normalized but still slight increase in WBC. - On IV antibiotics - remains afebrile 3. Anemia, chronic, CKD related, s/p transfusion - Continue to monitor and transfuse if <7 4. ESRD, DD, on HD, electrolyte abnormalities - Nephrology on board and consultation appreciated - HD at bedside planned 5. Hypernatremia- resolved 6. fail to thrive, malnutrition with hypoalbuminemia, - Will encourage PO intake - Given albumin yesterday 7. paroxysmal atrial fibrillation, sinus rhythm, on metoprolol, not a candidate for anticoagulant - Cardiology on board and consultation appreciated. Started on Amiodarone drip 8. history of cerebrovascular accident 9. aortic stenosis 10. sick sinus syndrome status post permanent pacemaker - pacer interrogated and shows normal pacing function 11. dyslipidemia, on statin 12. dementia, chronic, stable 13. Disposition - Once HR better controlled will d/c to SNF Subjective 24 Hr Interval Summary Free Text/Dictation Son at bedside and states finished feeding patient and applying lotion to extremities. Patient in NAD and shakes head yes and no when asked questions. Patient has been in and out of AFib with RVR and started on Amiodarone drip. No other acute issues. Exam/Review of Systems Vital Signs Vitals Vital Signs Date Time Temp Pulse Resp B/P Pulse Ox O2 Delivery O2 Flow Rate FiO2 05/17/17 12:58 70 05/17/17 11:39 98.7 18 102/52 98 05/17/17 08:30 Nasal Cannula 2.0 Intake and Output 05/16/17 05/16/17 05/17/17 15:00 23:00 07:00 Intake Total 500 ml 150 ml Output Total 1500 ml Balance -1000 ml 150 ml Exam General: frail appearing, NAD, awake and nods head yes and no to questions HEENT: Atraumatic, normocephalic. The pupils are equal, round and reactive. Extraocular motor are intact, mucous membranes dry Neck: Supple with full range of motion. No rigidity or meningismus Chest: Nontender Lungs: Coarse breath sounds bilaterally, mild crackles at the base Heart: Normal S1-S2, tachycardia, atrial fibrillation Abdomen: Soft , nontender, nondistended , bowel sounds are present. No guarding no rebound tenderness Extremities: Normal to inspection, no edema no cyanosis Skin: Sacral skin wound, skin tenting of the hands Results Result Diagram: 05/17/17 0510 05/17/17 0510 Results 24 hrs Laboratory Tests Test 05/16/17 17:31 05/16/17 18:39 05/16/17 18:55 05/16/17 20:18 Bedside Glucose 135 129 134 Lactic Acid Level 1.6 Creatine Kinase 93 Creatine Kinase Index 3.5 Creatinine Kinase MB (Mass) 3.25 H Troponin I 0.109 Test 05/17/17 05:10 05/17/17 08:59 05/17/17 12:06 White Blood Count 11.9 H Red Blood Count 3.28 L Hemoglobin 8.8 L Hematocrit 29.4 L Mean Corpuscular Volume 89.6 Mean Corpuscular Hemoglobin 26.8 L Mean Corpuscular Hemoglobin Concent 29.9 L Red Cell Distribution Width 18.3 H Platelet Count 107 #L Mean Platelet Volume 11.5 H Neutrophils % 73.1 Lymphocytes % 11.6 L Monocytes % 9.4 Eosinophils % 5.1 Basophils % 0.2 Nucleated Red Blood Cells % 0.0 Neutrophils # 8.7 H Lymphocytes # 1.4 Monocytes # 1.1 H Eosinophils # 0.6 H Basophils # 0.0 Nucleated Red Blood Cells # 0.0 Sodium Level 140 Potassium Level 4.1 Chloride Level 106 Carbon Dioxide Level 26 Anion Gap 12 Blood Urea Nitrogen 48 #H Creatinine 5.95 H Glucose Level 123 Calcium Level 6.8 L Phosphorus Level 2.9 Magnesium Level 1.9 Albumin 2.1 L Random Vancomycin Level 9.6 Bedside Glucose 139 154 Medications Medications Current Medications Ondansetron HCl (Zofran Inj) 4 mg Q6H PRN IV NAUSEA AND/OR VOMITING; Start at 21:30 Acetaminophen (Tylenol Tab) 650 mg Q6H PRN PO PAIN LEVEL 1-3 OR FEVER; Start 05/15/17 at 21:30 Docusate Sodium (Colace) 100 mg Q12H PRN PO CONSTIPATION; Start 05/15/17 at 21 :30 Bisacodyl (Dulcolax) 5 mg DAILY PRN PO CONSTIPATION; Start 05/15/17 at 21:30 Famotidine (Pepcid) 20 mg DAILY PO Last administered on 05/17/17 08:40; Admin Dose 20 MG; Start 05/16/17 at 09:00 Aspirin (Halfprin) 81 mg DAILY PO Last administered on 05/17/17 08:39; Admin Dose 81 MG; Start 05/16/17 at 09:00 Atorvastatin Calcium (Lipitor) 20 mg HS PO Last administered on 05/16/17 21: 20; Admin Dose 20 MG; Start 05/16/17 at 21:00 Donepezil HCl (Aricept) 5 mg DAILY PO Last administered on 05/17/17 08:40; Admin Dose 5 MG; Start 05/16/17 at 09:00 Folic Acid (Folic Acid) 1 mg DAILY PO Last administered on 05/17/17 08:40; Admin Dose 1 MG; Start 05/16/17 at 09:00 Loratadine (Claritin) 10 mg DAILY PO Last administered on 05/17/17 08:40; Admin Dose 10 MG; Start 05/16/17 at 09:00 Megestrol Acetate (Megace) 40 mg DAILY PO Last administered on 05/17/17 08:40 ; Admin Dose 40 MG; Start 05/16/17 at 09:00 Diagnostic Test (Pha) (Accu-Chek) 1 ea 02 XX ; Start 05/16/17 at 02:00 Miscellaneous Information 1 ea NOTE XX ; Start 05/15/17 at 22:00 Glucose (Glutose) 15 gm Q15M PRN PO DECREASED GLUCOSE; Start 05/15/17 at 22:00 Glucose (Glutose) 22.5 gm Q15M PRN PO DECREASED GLUCOSE; Start 05/15/17 at 22: 00 Dextrose (D50w Syringe) 25 ml Q15M PRN IV DECREASED GLUCOSE; Start 05/15/17 at 22:00 Dextrose (D50w Syringe) 50 ml Q15M PRN IV DECREASED GLUCOSE; Start 05/15/17 at 22:00 Glucagon (Glucagen) 1 mg Q15M PRN IM DECREASED GLUCOSE; Start 05/15/17 at 22: 00 Glucose 15 gm 15 gm Q15M PRN BUCCAL DECREASED GLUCOSE; Start 05/15/17 at 22:00 Cefepime HCl 50 ml @ 100 mls/hr DAILY IVPB Last administered on 05/17/17 08: 40; Admin Dose 100 MLS/HR; Start 05/16/17 at 09:00 Dextrose (D5W) 1,000 ml @ 50 mls/hr Q20H IV Last administered on 05/17/17 05 :10; Admin Dose 50 MLS/HR; Start 05/16/17 at 09:00 Sulfacetamide Sodium 1 drop 1 drop BID BOTH EYES Last administered on 08:39; Admin Dose 1 DROP; Start 05/16/17 at 21:00 Amiodarone HCl 900 mg/Dextrose 500 ml @ 0 mls/hr Q0M IV ; Start 05/17/17 at 10: 30; Stop 05/18/17 at 10:29 Vancomycin HCl (Vancocin) 250 ml @ 125 mls/hr ONCE IVPB Last administered on 05/17/17 12:59; Admin Dose 125 MLS/HR; Start 05/17/17 at 12:30; Stop at 18:00 VIV FORD MD May 17, 2017 14:51
--- NOTE | 2017-05-17 18:30 | RADRPT ---
Vent Rate: 72 bpm RR Interval: 0 msec [place] Interval: 146 msec QRS Duration: 114 msec QT Interval: 454 msec QTC Interval: 497 msec P-R-T [place]: 0 - -47 - 103 degrees Normal sinus rhythm Incomplete right bundle branch block Left anterior fascicular block Minimal voltage criteria for LVH, may be normal variant Cannot rule out Anterior infarct , age undetermined ST amp; T wave abnormality, consider lateral ischemia Abnormal ECG Electronically Signed By: Greg Cartwright [id number]
--- NOTE | 2017-05-17 18:30 | RADRPT ---
Vent Rate: 72 bpm RR Interval: 0 msec [place] Interval: 146 msec QRS Duration: 114 msec QT Interval: 454 msec QTC Interval: 497 msec P-R-T [place]: 0 - -47 - 103 degrees Normal sinus rhythm Incomplete right bundle branch block Left anterior fascicular block Minimal voltage criteria for LVH, may be normal variant Cannot rule out Anterior infarct , age undetermined ST amp; T wave abnormality, consider lateral ischemia Abnormal ECG Electronically Signed By: Greg Cartwright [id number]
--- NOTE | 2017-05-17 18:30 | RADRPT ---
Vent Rate: 72 bpm RR Interval: 0 msec [place] Interval: 146 msec QRS Duration: 114 msec QT Interval: 454 msec QTC Interval: 497 msec P-R-T [place]: 0 - -47 - 103 degrees Normal sinus rhythm Incomplete right bundle branch block Left anterior fascicular block Minimal voltage criteria for LVH, may be normal variant Cannot rule out Anterior infarct , age undetermined ST amp; T wave abnormality, consider lateral ischemia Abnormal ECG Electronically Signed By: Greg Cartwright [id number]
[2017-05-17] MEDS: ATORVASTATIN 20 MG TAB PO SCH (20:50)
[2017-05-18] VITALS (19 sets, daily range): BP systolic 92–182; BP diastolic 50–77; PULSE 8–115; RESP 16–18
[2017-05-18] MEDS: ACCU-CHEK XX SCH (01:23)
[2017-05-18] MEDS: DEXTROSE 5% 1,000 ML IV SCH ×2 (01:23→20:24)
[2017-05-18] MEDS: INSULIN ASPART [NOVOLOG] 3 ML PEN SC SCH ×4 (08:00→20:23)
[2017-05-18] MEDS: ASPIRIN (EC) 81 MG TAB PO SCH (09:44)
[2017-05-18] MEDS: SULFACETAMIDE 10% 15 ML OPH BOTH EYES SCH ×2 (09:44→20:10)
[2017-05-18] MEDS: FAMOTIDINE 20 MG TAB PO SCH (09:44)
[2017-05-18] MEDS: FOLIC ACID 1 MG TAB PO SCH (09:44)
[2017-05-18] MEDS: MEGESTROL 40 MG TAB PO SCH (09:44)
[2017-05-18] MEDS: DONEPEZIL 5 MG TAB PO SCH (09:44)
[2017-05-18] MEDS: LORATADINE 10 MG TAB PO SCH (09:44)
[2017-05-18] MEDS: CEFEPIME 1GM/50 ML (PMX) 50 ML IVPB SCH (09:54)
[2017-05-18] MEDS ORDERED: HEPARIN 1000 UNITS/ML 10 ML INJ CATHETER ONE (12:30)
--- NOTE | 2017-05-18 13:29 | PN ---
Date/Time of Note Date/Time of Note DATE: 05/18/17 TIME: 13:20 Assessment/Plan VTE Prophylaxis VTE Prophylaxis Intervention: contraindicated Lines/Catheters IV Catheter Type (from Nrsg): Saline Lock Assessment/Plan Assessment/Plan 1. Hypotension secondary to dehydration and/or possible early sepsis- improving - MAP has remained above 60 over the last 24 hours. - Midodrine prior to HD 2. Sepsis secondary to HCAP - Lactic acid normalized but still slight increase in WBC. - On IV antibiotics - remains afebrile 3. Anemia, chronic, CKD related, s/p transfusion - Continue to monitor and transfuse if <7 4. ESRD, DD, on HD, electrolyte abnormalities - Nephrology on board and consultation appreciated - HD at bedside planned 5. Hypernatremia- resolved 6. fail to thrive, moderate malnutrition with hypoalbuminemia, - Will encourage PO intake - Given albumin yesterday 7. paroxysmal atrial fibrillation, sinus rhythm, on metoprolol, not a candidate for anticoagulant - Cardiology on board and consultation appreciated. 8. history of cerebrovascular accident 9. aortic stenosis 10. sick sinus syndrome status post permanent pacemaker - pacer interrogated and shows normal pacing function 11. dyslipidemia, on statin 12. dementia, chronic, stable 13. Disposition - Once HR better controlled will d/c to SNF Subjective 24 Hr Interval Summary Free Text/Dictation Patient sleeping but able to be aroused. Still experiencing tachycardia but Vpaced on monitor. No acute overnight events. Exam/Review of Systems Vital Signs Vitals Vital Signs Date Time Temp Pulse Resp B/P Pulse Ox O2 Delivery O2 Flow Rate FiO2 05/18/17 12:29 98.0 61 18 100/57 99 05/17/17 20:00 Nasal Cannula 2.0 Intake and Output 05/17/17 05/17/17 05/18/17 14:59 22:59 06:59 Intake Total 50 ml 493.7 ml Balance 50 ml 493.7 ml Exam General: frail appearing, NAD, resting HEENT: Atraumatic, normocephalic. The pupils are equal, round and reactive. Extraocular motor are intact, mucous membranes dry Neck: Supple with full range of motion. No rigidity or meningismus Chest: Nontender Lungs: Coarse breath sounds bilaterally, mild crackles at the base Heart: Normal S1-S2, tachycardia, atrial fibrillation Abdomen: Soft , nontender, nondistended , bowel sounds are present. No guarding no rebound tenderness Extremities: Normal to inspection, no edema no cyanosis, grimacing when left thigh palpated Skin: Sacral skin wound, skin tenting of the hands Results Result Diagram: 05/18/17 0748 05/18/17 0748 Results 24 hrs Laboratory Tests Test 05/17/17 18:14 05/17/17 20:35 05/18/17 07:48 05/18/17 08:53 Bedside Glucose 116 117 132 White Blood Count 11.0 H Red Blood Count 3.02 L Hemoglobin 8.4 L Hematocrit 27.1 L Mean Corpuscular Volume 89.7 Mean Corpuscular Hemoglobin 27.8 L Mean Corpuscular Hemoglobin Concent 31.0 L Red Cell Distribution Width 18.3 H Platelet Count 106 L Mean Platelet Volume 11.3 H Neutrophils % 77.5 H Lymphocytes % 8.9 L Monocytes % 7.4 Eosinophils % 5.0 Basophils % 0.4 Nucleated Red Blood Cells % 0.0 Neutrophils # 8.6 H Lymphocytes # 1.0 Monocytes # 0.8 Eosinophils # 0.6 H Basophils # 0.0 Nucleated Red Blood Cells # 0.0 Sodium Level 138 Potassium Level 4.0 Chloride Level 103 Carbon Dioxide Level 27 Anion Gap 12 Blood Urea Nitrogen 50 H Creatinine 6.82 H Glucose Level 116 Calcium Level 6.7 L Phosphorus Level 3.3 Magnesium Level 1.9 Albumin 1.9 L Test 05/18/17 12:59 Bedside Glucose 120 Medications Medications Current Medications Ondansetron HCl (Zofran Inj) 4 mg Q6H PRN IV NAUSEA AND/OR VOMITING; Start at 21:30 Acetaminophen (Tylenol Tab) 650 mg Q6H PRN PO PAIN LEVEL 1-3 OR FEVER; Start 05/15/17 at 21:30 Docusate Sodium (Colace) 100 mg Q12H PRN PO CONSTIPATION; Start 05/15/17 at 21 :30 Bisacodyl (Dulcolax) 5 mg DAILY PRN PO CONSTIPATION; Start 05/15/17 at 21:30 Famotidine (Pepcid) 20 mg DAILY PO Last administered on 05/18/17 09:44; Admin Dose 20 MG; Start 05/16/17 at 09:00 Aspirin (Halfprin) 81 mg DAILY PO Last administered on 05/18/17 09:44; Admin Dose 81 MG; Start 05/16/17 at 09:00 Atorvastatin Calcium (Lipitor) 20 mg HS PO Last administered on 05/17/17 20: 50; Admin Dose 20 MG; Start 05/16/17 at 21:00 Donepezil HCl (Aricept) 5 mg DAILY PO Last administered on 05/18/17 09:44; Admin Dose 5 MG; Start 05/16/17 at 09:00 Folic Acid (Folic Acid) 1 mg DAILY PO Last administered on 05/18/17 09:44; Admin Dose 1 MG; Start 05/16/17 at 09:00 Loratadine (Claritin) 10 mg DAILY PO Last administered on 05/18/17 09:44; Admin Dose 10 MG; Start 05/16/17 at 09:00 Megestrol Acetate (Megace) 40 mg DAILY PO Last administered on 05/18/17 09:44 ; Admin Dose 40 MG; Start 05/16/17 at 09:00 Diagnostic Test (Pha) (Accu-Chek) 1 ea 02 XX ; Start 05/16/17 at 02:00 Miscellaneous Information 1 ea NOTE XX ; Start 05/15/17 at 22:00 Glucose (Glutose) 15 gm Q15M PRN PO DECREASED GLUCOSE; Start 05/15/17 at 22:00 Glucose (Glutose) 22.5 gm Q15M PRN PO DECREASED GLUCOSE; Start 05/15/17 at 22: 00 Dextrose (D50w Syringe) 25 ml Q15M PRN IV DECREASED GLUCOSE; Start 05/15/17 at 22:00 Dextrose (D50w Syringe) 50 ml Q15M PRN IV DECREASED GLUCOSE; Start 05/15/17 at 22:00 Glucagon (Glucagen) 1 mg Q15M PRN IM DECREASED GLUCOSE; Start 05/15/17 at 22: 00 Glucose 15 gm 15 gm Q15M PRN BUCCAL DECREASED GLUCOSE; Start 05/15/17 at 22:00 Cefepime HCl 50 ml @ 100 mls/hr DAILY IVPB Last administered on 05/18/17 09: 54; Admin Dose 100 MLS/HR; Start 05/16/17 at 09:00 Dextrose (D5W) 1,000 ml @ 50 mls/hr Q20H IV Last administered on 05/18/17 01 :23; Admin Dose 50 MLS/HR; Start 05/16/17 at 09:00 Sulfacetamide Sodium 1 drop 1 drop BID BOTH EYES Last administered on t 09:44; Admin Dose 1 DROP; Start 05/16/17 at 21:00 Albumin Human (Albumin Human 25%) 100 ml @ 100 mls/hr Q1H IV ; Start 05/18/17 at 12:30; Stop 05/18/17 at 14:29 VIV FORD MD May 18, 2017 13:28
--- NOTE | 2017-05-18 15:05 | CONS ---
Date/Time of Note Date/Time of Note DATE: 05/18/17 TIME: 15:03 Consult Date/Type/Reason Admit Date/Time May 15, 2017 at 20:02 Initial Consult Date 05/16/17 Type of Consultation: cardiology Ordering Provider: SUNIL GARCIA Subjective CARD F/U: S: . D/W STAFF AND rhythm was reviewed. pt remains in mostly paced rhythm AFIB and NSVT have significantly improved with amiodarone drip. remains nonverbal and does not answer my questions. 0: General: thin man. no acute distress HEENT: NC/AT. pupils are equal. round. NECK: . no stridor. CV: irregularly irregular systolic murmur; no gallop or rubs. PULM: no wheezing. + mild rhonchi. GI: SOFT, NT, ND, no rebound or guarding Extremity: trace B/L LE edema. no clubbing. neuro: awake and alert, does not answer my questions. Psych: appears anxious rectal: deferred : normal ECG NSR. ECHO reviewed recently: 1. Normal left ventricular systolic function. Normal left ventricular cavity size. Left ventricle not well visualized. Moderate concentric left ventricular hypertrophy. Ejection fraction is visually estimated at 60 %. Abnormal Diastolic Function. 2. Mitral valve is not well visualized. Mild mitral leaflet calcification. Mild mitral annular calcification. Trace mitral regurgitation. 3. Aortic valve not well visualized. Moderate aortic stenosis. Aortic valve Max velocity 2.90 m/sec. Max PG 34.00 mmHg. Mean PG 18.00 mmHg. Aortic cusps appear moderately calcified. 4. Normal appearance of the tricuspid valve. Tricuspid valve not well visualized. Estimated peak PA systolic pressure 29 mmHg. There is mild tricuspid regurgitation. 5. very suboptimal study. Objective Vital Signs Date Time Temp Pulse Resp B/P Pulse Ox O2 Delivery O2 Flow Rate FiO2 05/18/17 12:29 98.0 61 18 100/57 99 05/18/17 08:00 Nasal Cannula 2.0 Intake and Output 05/17/17 05/17/17 05/18/17 15:00 23:00 07:00 Intake Total 50 ml 493.7 ml Balance 50 ml 493.7 ml Results/Medications Result Diagram: 05/18/17 0748 05/18/17 0748 Results 24 hrs Laboratory Tests Test 05/17/17 18:14 05/17/17 20:35 05/18/17 07:48 05/18/17 08:53 Bedside Glucose 116 117 132 White Blood Count 11.0 H Red Blood Count 3.02 L Hemoglobin 8.4 L Hematocrit 27.1 L Mean Corpuscular Volume 89.7 Mean Corpuscular Hemoglobin 27.8 L Mean Corpuscular Hemoglobin Concent 31.0 L Red Cell Distribution Width 18.3 H Platelet Count 106 L Mean Platelet Volume 11.3 H Neutrophils % 77.5 H Lymphocytes % 8.9 L Monocytes % 7.4 Eosinophils % 5.0 Basophils % 0.4 Nucleated Red Blood Cells % 0.0 Neutrophils # 8.6 H Lymphocytes # 1.0 Monocytes # 0.8 Eosinophils # 0.6 H Basophils # 0.0 Nucleated Red Blood Cells # 0.0 Sodium Level 138 Potassium Level 4.0 Chloride Level 103 Carbon Dioxide Level 27 Anion Gap 12 Blood Urea Nitrogen 50 H Creatinine 6.82 H Glucose Level 116 Calcium Level 6.7 L Phosphorus Level 3.3 Magnesium Level 1.9 Albumin 1.9 L Test 05/18/17 12:59 Bedside Glucose 120 Medications Current Medications Ondansetron HCl (Zofran Inj) 4 mg Q6H PRN IV NAUSEA AND/OR VOMITING; Start at 21:30 Acetaminophen (Tylenol Tab) 650 mg Q6H PRN PO PAIN LEVEL 1-3 OR FEVER; Start 05/15/17 at 21:30 Docusate Sodium (Colace) 100 mg Q12H PRN PO CONSTIPATION; Start 05/15/17 at 21 :30 Bisacodyl (Dulcolax) 5 mg DAILY PRN PO CONSTIPATION; Start 05/15/17 at 21:30 Famotidine (Pepcid) 20 mg DAILY PO Last administered on 05/18/17 09:44; Admin Dose 20 MG; Start 05/16/17 at 09:00 Aspirin (Halfprin) 81 mg DAILY PO Last administered on 05/18/17 09:44; Admin Dose 81 MG; Start 05/16/17 at 09:00 Atorvastatin Calcium (Lipitor) 20 mg HS PO Last administered on 05/17/17 20: 50; Admin Dose 20 MG; Start 05/16/17 at 21:00 Donepezil HCl (Aricept) 5 mg DAILY PO Last administered on 05/18/17 09:44; Admin Dose 5 MG; Start 05/16/17 at 09:00 Folic Acid (Folic Acid) 1 mg DAILY PO Last administered on 05/18/17 09:44; Admin Dose 1 MG; Start 05/16/17 at 09:00 Loratadine (Claritin) 10 mg DAILY PO Last administered on 05/18/17 09:44; Admin Dose 10 MG; Start 05/16/17 at 09:00 Megestrol Acetate (Megace) 40 mg DAILY PO Last administered on 05/18/17 09:44 ; Admin Dose 40 MG; Start 05/16/17 at 09:00 Diagnostic Test (Pha) (Accu-Chek) 1 ea 02 XX ; Start 05/16/17 at 02:00 Miscellaneous Information 1 ea NOTE XX ; Start 05/15/17 at 22:00 Glucose (Glutose) 15 gm Q15M PRN PO DECREASED GLUCOSE; Start 05/15/17 at 22:00 Glucose (Glutose) 22.5 gm Q15M PRN PO DECREASED GLUCOSE; Start 05/15/17 at 22: 00 Dextrose (D50w Syringe) 25 ml Q15M PRN IV DECREASED GLUCOSE; Start 05/15/17 at 22:00 Dextrose (D50w Syringe) 50 ml Q15M PRN IV DECREASED GLUCOSE; Start 05/15/17 at 22:00 Glucagon (Glucagen) 1 mg Q15M PRN IM DECREASED GLUCOSE; Start 05/15/17 at 22: 00 Glucose 15 gm 15 gm Q15M PRN BUCCAL DECREASED GLUCOSE; Start 05/15/17 at 22:00 Cefepime HCl 50 ml @ 100 mls/hr DAILY IVPB Last administered on 05/18/17 09: 54; Admin Dose 100 MLS/HR; Start 05/16/17 at 09:00 Dextrose (D5W) 1,000 ml @ 50 mls/hr Q20H IV Last administered on 05/18/17 01 :23; Admin Dose 50 MLS/HR; Start 05/16/17 at 09:00 Sulfacetamide Sodium (Bleph-10 Oph Drop) 1 drop BID BOTH EYES Last administered on 05/18/17 09:44; Admin Dose 1 DROP; Start 05/16/17 at 21:00 Assessment/Plan Chief Complaint/Hosp Course 1. abnormal ECG with Wide complex QRS: most likely due to intermittent paced rhythm and PVC, NSVT 2. hypotension 3. ESRD ON HD 4. HX CAD, [place] 5. HX dementia 6. P afib 7. sick sinus syndrome 8. s/p PPM 9/ encephalopathy 10. hx CVA 11. severe and worsening anemia . 12. Dyslipidemia: on lipitor Recommendations: HD as per renal Pacemaker was interrogated 05.16.17 and personally reviewed. normal pacing function pt has not been anticoagulated due to concerns about anemia, fall and bleeding. low dose betablocker if BP remains stable enough to tolerate it. cont ASA cont lipitor patient has completed amiodarone drip. will start po amiodarone tomorrow. no further cardiac work up is indicated. will f/u prn . Thank you for his referral. I will continue to follow along with you. MELVIN BRODERICK MD [facility] Problems: MELVIN BRODERICK MD May 18, 2017 15:05
[2017-05-18] MEDS ORDERED: COLLAGENASE 30 GM TUBE TOP SCH (17:00)
[2017-05-18] MEDS ORDERED: BALSAM PERU/CASTOR OIL 60 GM TUBE TOP SCH (17:00)
[2017-05-18] MEDS: AMIODARONE 200 MG TAB PO SCH (17:39)
[2017-05-18] MEDS: ALBUMIN HUMAN 25% 100 ML IV SCH ×2 (17:40→17:42)
--- NOTE | 2017-05-18 19:57 | CONS ---
Date/Time of Note Date/Time of Note DATE: 05/18/17 TIME: 19:56 Assessment/Plan Assessment/Plan Chief Complaint/Hosp Course - ESRD ON HEMODIALYSIS - ANEMIA - PNEUMONIA - CAD / CHF - HYPOTENSION - DM - LOW ALBUMIN plan: Bedside dialysis Agree with SNF Minimal UF due to low BP Continue with Midodrine prior to HD H/H stable Problems: Consultation Date/Type/Reason Admit Date/Time May 15, 2017 at 20:02 Initial Consult Date 05/16/17 Type of Consultation: NEPHROLOGY Reason for Consultation ESRD on Hemodialysis Referring Provider: SUNIL GARCIA 24 HR Interval Summary Subjective hx not possible: pt non-verbal Constitutional: no complaints Exam/Review of Systems Vital Signs Vitals Vital Signs Date Time Temp Pulse Resp B/P Pulse Ox O2 Delivery O2 Flow Rate FiO2 05/18/17 18:30 89 05/18/17 18:30 18 05/18/17 17:02 98.0 105/77 98 05/18/17 08:00 Nasal Cannula 2.0 Intake and Output 05/17/17 05/17/17 05/18/17 15:00 23:00 07:00 Intake Total 50 ml 493.7 ml Balance 50 ml 493.7 ml Exam Constitutional: non-verbal Head: normocephalic Respiratory: crackles/rales Cardiovascular: edema, regular rate and rhythm, systolic murmur Gastrointestinal: soft Results Result Diagram: 05/18/17 0748 05/18/17 0748 Results 24 hrs Laboratory Tests Test 05/17/17 20:35 05/18/17 07:48 05/18/17 08:53 05/18/17 12:59 Bedside Glucose 117 132 120 White Blood Count 11.0 H Red Blood Count 3.02 L Hemoglobin 8.4 L Hematocrit 27.1 L Mean Corpuscular Volume 89.7 Mean Corpuscular Hemoglobin 27.8 L Mean Corpuscular Hemoglobin Concent 31.0 L Red Cell Distribution Width 18.3 H Platelet Count 106 L Mean Platelet Volume 11.3 H Neutrophils % 77.5 H Lymphocytes % 8.9 L Monocytes % 7.4 Eosinophils % 5.0 Basophils % 0.4 Nucleated Red Blood Cells % 0.0 Neutrophils # 8.6 H Lymphocytes # 1.0 Monocytes # 0.8 Eosinophils # 0.6 H Basophils # 0.0 Nucleated Red Blood Cells # 0.0 Sodium Level 138 Potassium Level 4.0 Chloride Level 103 Carbon Dioxide Level 27 Anion Gap 12 Blood Urea Nitrogen 50 H Creatinine 6.82 H Glucose Level 116 Calcium Level 6.7 L Phosphorus Level 3.3 Magnesium Level 1.9 Albumin 1.9 L Test 05/18/17 17:29 Bedside Glucose 143 Medications Medications Current Medications Ondansetron HCl (Zofran Inj) 4 mg Q6H PRN IV NAUSEA AND/OR VOMITING; Start at 21:30 Acetaminophen (Tylenol Tab) 650 mg Q6H PRN PO PAIN LEVEL 1-3 OR FEVER; Start 05/15/17 at 21:30 Docusate Sodium (Colace) 100 mg Q12H PRN PO CONSTIPATION; Start 05/15/17 at 21 :30 Bisacodyl (Dulcolax) 5 mg DAILY PRN PO CONSTIPATION; Start 05/15/17 at 21:30 Famotidine (Pepcid) 20 mg DAILY PO Last administered on 05/18/17 09:44; Admin Dose 20 MG; Start 05/16/17 at 09:00 Aspirin (Halfprin) 81 mg DAILY PO Last administered on 05/18/17 09:44; Admin Dose 81 MG; Start 05/16/17 at 09:00 Atorvastatin Calcium (Lipitor) 20 mg HS PO Last administered on 05/17/17 20: 50; Admin Dose 20 MG; Start 05/16/17 at 21:00 Donepezil HCl (Aricept) 5 mg DAILY PO Last administered on 05/18/17 09:44; Admin Dose 5 MG; Start 05/16/17 at 09:00 Folic Acid (Folic Acid) 1 mg DAILY PO Last administered on 05/18/17 09:44; Admin Dose 1 MG; Start 05/16/17 at 09:00 Loratadine (Claritin) 10 mg DAILY PO Last administered on 05/18/17 09:44; Admin Dose 10 MG; Start 05/16/17 at 09:00 Megestrol Acetate (Megace) 40 mg DAILY PO Last administered on 05/18/17 09:44 ; Admin Dose 40 MG; Start 05/16/17 at 09:00 Diagnostic Test (Pha) (Accu-Chek) 1 ea 02 XX ; Start 05/16/17 at 02:00 Miscellaneous Information 1 ea NOTE XX ; Start 05/15/17 at 22:00 Glucose (Glutose) 15 gm Q15M PRN PO DECREASED GLUCOSE; Start 05/15/17 at 22:00 Glucose (Glutose) 22.5 gm Q15M PRN PO DECREASED GLUCOSE; Start 05/15/17 at 22: 00 Dextrose (D50w Syringe) 25 ml Q15M PRN IV DECREASED GLUCOSE; Start 05/15/17 at 22:00 Dextrose (D50w Syringe) 50 ml Q15M PRN IV DECREASED GLUCOSE; Start 05/15/17 at 22:00 Glucagon (Glucagen) 1 mg Q15M PRN IM DECREASED GLUCOSE; Start 05/15/17 at 22: 00 Glucose 15 gm 15 gm Q15M PRN BUCCAL DECREASED GLUCOSE; Start 05/15/17 at 22:00 Cefepime HCl 50 ml @ 100 mls/hr DAILY IVPB Last administered on 05/18/17 09: 54; Admin Dose 100 MLS/HR; Start 05/16/17 at 09:00 Dextrose (D5W) 1,000 ml @ 50 mls/hr Q20H IV Last administered on 05/18/17 01 :23; Admin Dose 50 MLS/HR; Start 05/16/17 at 09:00 Sulfacetamide Sodium (Bleph-10 Oph Drop) 1 drop BID BOTH EYES Last administered on 05/18/17 09:44; Admin Dose 1 DROP; Start 05/16/17 at 21:00 Amiodarone HCl (Cordarone) 200 mg DAILY PO Last administered on 05/18/17 17: 39; Admin Dose 200 MG; Start 05/18/17 at 16:00 Collagenase (Santyl) 1 applic DAILY TOP ; Start 05/18/17 at 21:00 DENVER ANTONY MD May 18, 2017 19:57
[2017-05-18] MEDS: ATORVASTATIN 20 MG TAB PO SCH (20:10)
[2017-05-18] MEDS: BALSAM PERU/CASTOR OIL 60 GM TUBE TOP SCH (20:23)
[2017-05-18] MEDS: COLLAGENASE 30 GM TUBE TOP SCH (20:23)
[2017-05-19] VITALS (31 sets, daily range): BP systolic 69–128; BP diastolic 33–89; PULSE 71–117; RESP 15–26
[2017-05-19] MEDS: ACCU-CHEK XX SCH (02:00)
[2017-05-19] MEDS ORDERED: SOD CHLORIDE 0.9% 1,000 ML IV ONE (03:30)
--- NOTE | 2017-05-19 03:47 | EN ---
Date/Time of Note Date/Time of Note DATE: 05/19/17 TIME: 03:32 Event Note Medicine Medicine Event Note Patient seen and examined at the bedside as nurse called me regarding patient's hypotension. At approximately midnight on 05/19 patient observed with bp recorded at 74/50. He was gien a 500cc bolus of normal saline. There was some improvement of the BP with the normal saline. However at approximately 3:00pm his blood pressure was in the 60s systolic. 1 liter of normal saline was ordered to be given over 4 hours. Patient is a dialysis patient, however for resuscitative measures the fluids were needed. He remains very lethargic at the moment. I did discuss with the daughter at the bedside and the son over the phone regarding his condition and code status. They are agreeable to continue current medical care, however they do not want aggressive measures. They are agreeable to change his code status to DNR. Current vitals Bp: 92/55 , HR 78, spo2 92% on 2l, heent: nc/at, cvs: rrr, no overt murmurs appreciated lungs: clear to auscultation bilaterally, no rales or wheezes Neuro: lethargic, somnolent, appears weak. Unable to assess adequately secondary to current condition. a/p: #1 hypotension: 500cc ns bolus given, currently receiving 1 liter of normal saline over 4 hours will titrate down fluid rate as long as systolic bp above 95. #2 Failure to thrive: patient has dementia along with multiple comorbidities. He has very poor PO intake. I did discuss that patients condition extensively with the daughter and the bedside and the son Singh on the phone. They were agreeable to continue current medical care, however they do not want aggressive measures. They are agreeable to change his code status to DNR. I will change his status to DNR. Greater than 30 minutes of critical care time was spent on the management and care of the patient. SUNIL GARCIA May 19, 2017 03:46
--- NOTE | 2017-05-19 03:48 | EN ---
Date/Time of Note Date/Time of Note DATE: 05/19/17 TIME: 03:47 Event Note Medicine Medicine Event Note Code status change I did discuss with the daughter at the bedside and the son Singh over the phone regarding his condition and code status. They are agreeable to continue current medical care, however they do not want aggressive measures. They are agreeable to change his code status to DNR. I will change his code status to DNR. SUNIL GARCIA May 19, 2017 03:48
[2017-05-19] MEDS: INSULIN ASPART [NOVOLOG] 3 ML PEN SC SCH ×4 (07:44→21:00)
[2017-05-19] MEDS: FOLIC ACID 1 MG TAB PO SCH ×2 (09:00→10:16)
[2017-05-19] MEDS: FAMOTIDINE 20 MG TAB PO SCH (09:00)
[2017-05-19] MEDS: AMIODARONE 200 MG TAB PO SCH (09:00)
[2017-05-19] MEDS: ASPIRIN (EC) 81 MG TAB PO SCH ×2 (09:00→10:16)
[2017-05-19] MEDS: DONEPEZIL 5 MG TAB PO SCH ×2 (09:00→10:16)
[2017-05-19] MEDS: LORATADINE 10 MG TAB PO SCH ×2 (09:00→10:16)
[2017-05-19] MEDS: MEGESTROL 40 MG TAB PO SCH ×2 (09:00→10:17)
[2017-05-19] MEDS: COLLAGENASE 30 GM TUBE TOP SCH (10:17)
[2017-05-19] MEDS: BALSAM PERU/CASTOR OIL 60 GM TUBE TOP SCH ×2 (10:17→21:24)
[2017-05-19] MEDS: SULFACETAMIDE 10% 15 ML OPH BOTH EYES SCH ×2 (10:17→21:24)
[2017-05-19] MEDS: CEFEPIME 1GM/50 ML (PMX) 50 ML IVPB SCH (10:52)
--- NOTE | 2017-05-19 11:21 | PN ---
Date/Time of Note Date/Time of Note DATE: 05/19/17 TIME: 11:21 Assessment/Plan VTE Prophylaxis VTE Prophylaxis Intervention: contraindicated Lines/Catheters IV Catheter Type (from Nrsg): Peripheral IV Assessment/Plan Assessment/Plan 1. Hypotension secondary to dehydration vs sepsis - MAP has remained above 60 over the last 24 hours. - Midodrine prior to HD - Patient had +blood cultures for enterococcus 2. Sepsis secondary to HCAP and bacteremia - Lactic acid normalized but still slight increase in WBC. - On IV antibiotics - remains afebrile - Blood cultures showing enterococcus. Continue on Vancomycin 3. Anemia, chronic, CKD related, s/p transfusion - Continue to monitor and transfuse if <7 4. ESRD, DD, on HD, electrolyte abnormalities - Nephrology on board and consultation appreciated - HD at bedside planned 5. Hypernatremia- resolved 6. fail to thrive, moderate malnutrition with hypoalbuminemia, 7. paroxysmal atrial fibrillation, sinus rhythm, on metoprolol, not a candidate for anticoagulant - Cardiology on board and consultation appreciated. 8. history of cerebrovascular accident 9. aortic stenosis 10. sick sinus syndrome status post permanent pacemaker - pacer interrogated and shows normal pacing function 11. dyslipidemia, on statin 12. dementia, chronic, stable 13. Disposition - Once BP better controlled will d/c to SNF - Patient DNR/DNI per family Subjective 24 Hr Interval Summary Free Text/Dictation Patient still lethargic but does open eyes to voice. Patient has been experiencing hypotension since last night but has been responding to fluids. Patient changed to DNR/DNI and discussed if would like to pursue medication to increase BP with son at bedside but was unsure. Exam/Review of Systems Vital Signs Vitals Vital Signs Date Time Temp Pulse Resp B/P Pulse Ox O2 Delivery O2 Flow Rate FiO2 05/19/17 08:11 97.7 77 18 86/42 95 05/19/17 04:12 3.0 05/19/17 04:10 Nasal Cannula Intake and Output 05/18/17 05/18/17 05/19/17 15:00 23:00 07:00 Intake Total 1000 ml 1050 ml Output Total 2000 ml Balance -1000 ml 1050 ml Exam General: frail appearing, NAD, opening eyes to voice and touch HEENT: Atraumatic, normocephalic. The pupils are equal, round and reactive. Extraocular motor are intact, mucous membranes dry Neck: Supple with full range of motion. Lungs: Coarse breath sounds bilaterally, mild crackles at the base Heart: Normal S1-S2, regular rate, irregularly irregular rhythm Abdomen: Soft , nontender, nondistended , bowel sounds are present. No guarding no rebound tenderness Extremities: Normal to inspection, no edema no cyanosis, grimacing when left thigh palpated Skin: Sacral skin wound, skin tenting of the hands Results Result Diagram: 05/19/17 0744 05/19/1744 Results 24 hrs Laboratory Tests Test 05/18/17 12:59 05/18/17 17:29 05/18/17 19:57 05/19/17 07:44 Bedside Glucose 120 143 110 99 White Blood Count 11.1 H Red Blood Count 3.04 L Hemoglobin 8.4 L Hematocrit 27.0 L Mean Corpuscular Volume 88.8 Mean Corpuscular Hemoglobin 27.6 L Mean Corpuscular Hemoglobin Concent 31.1 L Red Cell Distribution Width 18.2 H Platelet Count 84 #L Mean Platelet Volume 10.8 H Neutrophils % 77.4 H Lymphocytes % 8.5 L Monocytes % 8.1 Eosinophils % 5.2 Basophils % 0.3 Nucleated Red Blood Cells % 0.0 Neutrophils # 8.6 H Lymphocytes # 0.9 Monocytes # 0.9 Eosinophils # 0.6 H Basophils # 0.0 Nucleated Red Blood Cells # 0.0 Sodium Level 138 Potassium Level 4.0 Chloride Level 105 Carbon Dioxide Level 27 Anion Gap 10 Blood Urea Nitrogen 36 #H Creatinine 5.28 H Glucose Level 96 Calcium Level 7.1 L Phosphorus Level 3.1 Magnesium Level 1.8 Albumin 1.9 L Medications Medications Current Medications Ondansetron HCl (Zofran Inj) 4 mg Q6H PRN IV NAUSEA AND/OR VOMITING; Start at 21:30 Acetaminophen (Tylenol Tab) 650 mg Q6H PRN PO PAIN LEVEL 1-3 OR FEVER; Start 05/15/17 at 21:30 Docusate Sodium (Colace) 100 mg Q12H PRN PO CONSTIPATION; Start 05/15/17 at 21 :30 Bisacodyl (Dulcolax) 5 mg DAILY PRN PO CONSTIPATION; Start 05/15/17 at 21:30 Famotidine (Pepcid) 20 mg DAILY PO Last administered on 05/18/17 09:44; Admin Dose 20 MG; Start 05/16/17 at 09:00 Aspirin (Halfprin) 81 mg DAILY PO Last administered on 05/18/17 09:44; Admin Dose 81 MG; Start 05/16/17 at 09:00 Atorvastatin Calcium (Lipitor) 20 mg HS PO Last administered on 05/18/17 20: 10; Admin Dose 20 MG; Start 05/16/17 at 21:00 Donepezil HCl (Aricept) 5 mg DAILY PO Last administered on 05/18/17 09:44; Admin Dose 5 MG; Start 05/16/17 at 09:00 Folic Acid (Folic Acid) 1 mg DAILY PO Last administered on 05/18/17 09:44; Admin Dose 1 MG; Start 05/16/17 at 09:00 Loratadine (Claritin) 10 mg DAILY PO Last administered on 05/18/17 09:44; Admin Dose 10 MG; Start 05/16/17 at 09:00 Megestrol Acetate (Megace) 40 mg DAILY PO Last administered on 05/18/17 09:44 ; Admin Dose 40 MG; Start 05/16/17 at 09:00 Diagnostic Test (Pha) (Accu-Chek) 1 ea 02 XX ; Start 05/16/17 at 02:00 Miscellaneous Information 1 ea NOTE XX ; Start 05/15/17 at 22:00 Glucose (Glutose) 15 gm Q15M PRN PO DECREASED GLUCOSE; Start 05/15/17 at 22:00 Glucose (Glutose) 22.5 gm Q15M PRN PO DECREASED GLUCOSE; Start 05/15/17 at 22: 00 Dextrose (D50w Syringe) 25 ml Q15M PRN IV DECREASED GLUCOSE; Start 05/15/17 at 22:00 Dextrose (D50w Syringe) 50 ml Q15M PRN IV DECREASED GLUCOSE; Start 05/15/17 at 22:00 Glucagon (Glucagen) 1 mg Q15M PRN IM DECREASED GLUCOSE; Start 05/15/17 at 22: 00 Glucose 15 gm 15 gm Q15M PRN BUCCAL DECREASED GLUCOSE; Start 05/15/17 at 22:00 Cefepime HCl 50 ml @ 100 mls/hr DAILY IVPB Last administered on 05/19/17 10: 52; Admin Dose 100 MLS/HR; Start 05/16/17 at 09:00 Dextrose (D5W) 1,000 ml @ 50 mls/hr Q20H IV Last administered on 05/18/17 20 :24; Admin Dose 50 MLS/HR; Start 05/16/17 at 09:00 Sulfacetamide Sodium (Bleph-10 Oph Drop) 1 drop BID BOTH EYES Last administered on 05/19/17 10:17; Admin Dose 1 DROP; Start 05/16/17 at 21:00 Amiodarone HCl (Cordarone) 200 mg DAILY PO Last administered on 05/18/17 17: 39; Admin Dose 200 MG; Start 05/18/17 at 16:00 Collagenase (Santyl) 1 applic DAILY TOP Last administered on 05/19/17 10:17; Admin Dose 1 APPLIC; Start 05/18/17 at 21:00 VIV FORD MD May 19, 2017 11:21
[2017-05-19] MEDS ORDERED: VANCOMYCIN IV PER PHARMACY XX SCH (17:00)
[2017-05-19] MEDS: DEXTROSE 5% 1,000 ML IV SCH ×2 (17:00→20:16)
[2017-05-19] MEDS ORDERED: VANCOMYCIN 1 GM (PMX) 250 ML IVPB SCH (17:00)
--- NOTE | 2017-05-19 18:29 | QN ---
Documentation Comment Spoke with son at bedside about patients blood pressure being low despite giving fluid. Discussed his code status and still would like to keep patient DNR and DNI, okay for chemical code. Requested patient be started on Pressor support even after discussion about the medication not being life saving and more temporary measure. Still requesting for medications to be started and nurse made aware. Will need transfer to ICU for pressor support. VIV FORD MD May 19, 2017 18:29
[2017-05-19] MEDS ORDERED: NORepinephrine 8MG/250 ML (PMX 250 ML IV SCH (18:30)
[2017-05-19] MEDS ORDERED: LIDOCAINE 1% (MPF) 5 ML VIAL SC ONE (18:30)
[2017-05-19] MEDS ORDERED: SOD CHLORIDE 0.9% 500 ML IV ONE ×2 (18:30)
[2017-05-19] MEDS ORDERED: DAPTOMYCIN 325 MG in SOD CHLORIDE 0.9% 100 ML IVPB SCH (20:00)
[2017-05-19] MEDS: ATORVASTATIN 20 MG TAB PO SCH (21:00)
[2017-05-20] VITALS (90 sets, daily range): BP systolic 62–145; BP diastolic 31–111; PULSE 65–129; RESP 14–30
[2017-05-20] MEDS: ACCU-CHEK XX SCH (02:00)
[2017-05-20] MEDS: DEXTROSE 5% 1,000 ML IV SCH (06:35)
[2017-05-20] MEDS: INSULIN ASPART [NOVOLOG] 3 ML PEN SC SCH ×4 (08:43→21:00)
[2017-05-20] MEDS: CEFEPIME 1GM/50 ML (PMX) 50 ML IVPB SCH (09:17)
[2017-05-20] MEDS: FAMOTIDINE 20 MG TAB PO SCH (09:45)
[2017-05-20] MEDS: LORATADINE 10 MG TAB PO SCH (09:46)
[2017-05-20] MEDS: AMIODARONE 200 MG TAB PO SCH (09:46)
[2017-05-20] MEDS: DONEPEZIL 5 MG TAB PO SCH (09:46)
[2017-05-20] MEDS: MEGESTROL 40 MG TAB PO SCH (09:46)
[2017-05-20] MEDS: ASPIRIN (EC) 81 MG TAB PO SCH (09:46)
[2017-05-20] MEDS: SULFACETAMIDE 10% 15 ML OPH BOTH EYES SCH ×2 (09:55→21:11)
[2017-05-20] MEDS: FOLIC ACID 1 MG TAB PO SCH (09:58)
--- NOTE | 2017-05-20 11:22 | PN ---
Date/Time of Note Date/Time of Note DATE: 05/20/17 TIME: 11:07 Assessment/Plan VTE Prophylaxis VTE Prophylaxis Intervention: other Lines/Catheters IV Catheter Type (from Nrsg): Peripheral IV Assessment/Plan Assessment/Plan 1. Septic shock secondary to bacteremia vs pneumonia - Patient was transferred to ICU for pressor support due to hypotension not responding to IVF - Patient had +blood cultures for enterococcus - ID consultation placed and will discuss if believe permacath source of infection and needing to be removed? - ECHO ordered to rule out endocarditis - Repeat blood cultures ordered as well - On Vancomycin and Daptomycin with improvement in WBC 2. Hyponatremia - Will continue to monitor - Urine studies if no improvement - On D51/2NS at 60 given HD patient 3. Anemia, chronic, CKD related, s/p transfusion - remains stable - Continue to monitor and transfuse if <7 4. ESRD, DD, on HD, electrolyte abnormalities - Nephrology on board and consultation appreciated - Will need to address removal of permacath and placement temporary line for HD - Discussed with son the effects HD has been on his father but still wants to continue. Was asking if can be done twice a week instead and told him to address with his Dimension Specification Inspector. 5. fail to thrive, moderate malnutrition with hypoalbuminemia - Able to take in small amounts of Pureed PO but for now will keep NPO until more awake and alert - gentle fluid, D5 1/2 NS 6. paroxysmal atrial fibrillation, sinus rhythm, on metoprolol, not a candidate for anticoagulant - Cardiology on board and consultation appreciated. HR controlled 7. history of cerebrovascular accident 8. aortic stenosis 9. sick sinus syndrome status post permanent pacemaker - pacer interrogated and shows normal pacing function 10. dyslipidemia, on statin 11. dementia, chronic, stable 12. Disposition - Continue monitoring patient in ICU >35 minutes of critical care time spent with patient. Daughter at bedside and updated on condition of patient. Still would like to pursue current plan of care. Subjective 24 Hr Interval Summary Free Text/Dictation Patient was transferred to ICU last night secondary to septic shock. He was started on pressor support after family changed him to Chemical Code. Patient is more awake and alert this am. NG tube in place Exam/Review of Systems Vital Signs Vitals Vital Signs Date Time Temp Pulse Resp B/P Pulse Ox O2 Delivery O2 Flow Rate FiO2 05/20/17 10:30 87 17 110/55 100 05/20/17 08:00 Nasal Cannula 2.0 05/20/17 07:45 98.7 Intake and Output 05/19/17 05/19/17 05/20/17 15:00 23:00 07:00 Intake Total 400 ml 705.625 ml Balance 400 ml 705.625 ml Exam General: frail appearing, NAD, awake and tracking with eyes. Nods head to some questions. Daughter at bedside. HEENT: Atraumatic, normocephalic. The pupils are equal, round and reactive. Neck: Supple with full range of motion. Lungs: Coarse breath sounds bilaterally, no wheezes Heart: Normal S1-S2, regular rate, irregularly irregular rhythm Abdomen: Soft , nontender, nondistended , bowel sounds are present. No guarding no rebound tenderness Extremities: +pedal edema b/l. Normal to inspection, no cyanosis Skin: Sacral skin wound Results Result Diagram: 05/20/17 0435 05/20/17 0436 Results 24 hrs Laboratory Tests Test 05/19/17 11:48 05/19/17 18:09 05/19/17 21:26 05/20/17 04:35 Bedside Glucose 86 137 159 White Blood Count 10.8 Red Blood Count 3.25 L Hemoglobin 8.9 L Hematocrit 27.9 L Mean Corpuscular Volume 85.8 Mean Corpuscular Hemoglobin 27.4 L Mean Corpuscular Hemoglobin Concent 31.9 L Red Cell Distribution Width 18.1 H Platelet Count 102 #L Mean Platelet Volume 10.9 H Neutrophils % 82.1 H Lymphocytes % 6.9 L Monocytes % 6.7 Eosinophils % 3.6 Basophils % 0.3 Nucleated Red Blood Cells % 0.0 Neutrophils # 8.9 H Lymphocytes # 0.8 Monocytes # 0.7 Eosinophils # 0.4 Basophils # 0.0 Nucleated Red Blood Cells # 0.0 Random Vancomycin Level 13.7 Test 05/20/17 04:36 05/20/17 08:31 Sodium Level 132 L Potassium Level 3.7 Chloride Level 101 Carbon Dioxide Level 22 Anion Gap 13 Blood Urea Nitrogen 36 H Creatinine 5.82 H Glucose Level 153 Calcium Level 7.0 L Phosphorus Level 3.6 Magnesium Level 1.6 L Albumin 2.0 L Bedside Glucose 173 Medications Medications Current Medications Ondansetron HCl (Zofran Inj) 4 mg Q6H PRN IV NAUSEA AND/OR VOMITING; Start at 21:30 Acetaminophen (Tylenol Tab) 650 mg Q6H PRN PO PAIN LEVEL 1-3 OR FEVER; Start 05/15/17 at 21:30 Docusate Sodium (Colace) 100 mg Q12H PRN PO CONSTIPATION; Start 05/15/17 at 21 :30 Bisacodyl (Dulcolax) 5 mg DAILY PRN PO CONSTIPATION; Start 05/15/17 at 21:30 Famotidine (Pepcid) 20 mg DAILY PO Last administered on 05/20/17 09:45; Admin Dose 20 MG; Start 05/16/17 at 09:00 Aspirin (Halfprin) 81 mg DAILY PO Last administered on 05/20/17 09:46; Admin Dose 81 MG; Start 05/16/17 at 09:00 Atorvastatin Calcium (Lipitor) 20 mg HS PO Last administered on 05/18/17 20: 10; Admin Dose 20 MG; Start 05/16/17 at 21:00 Donepezil HCl (Aricept) 5 mg DAILY PO Last administered on 05/20/17 09:46; Admin Dose 5 MG; Start 05/16/17 at 09:00 Folic Acid (Folic Acid) 1 mg DAILY PO Last administered on 05/20/17 09:58; Admin Dose 1 MG; Start 05/16/17 at 09:00 Loratadine (Claritin) 10 mg DAILY PO Last administered on 05/20/17 09:46; Admin Dose 10 MG; Start 05/16/17 at 09:00 Megestrol Acetate (Megace) 40 mg DAILY PO Last administered on 05/20/17 09:46 ; Admin Dose 40 MG; Start 05/16/17 at 09:00 Diagnostic Test (Pha) (Accu-Chek) 1 ea 02 XX ; Start 05/16/17 at 02:00 Miscellaneous Information 1 ea NOTE XX ; Start 05/15/17 at 22:00 Glucose (Glutose) 15 gm Q15M PRN PO DECREASED GLUCOSE; Start 05/15/17 at 22:00 Glucose (Glutose) 22.5 gm Q15M PRN PO DECREASED GLUCOSE; Start 05/15/17 at 22: 00 Dextrose (D50w Syringe) 25 ml Q15M PRN IV DECREASED GLUCOSE; Start 05/15/17 at 22:00 Dextrose (D50w Syringe) 50 ml Q15M PRN IV DECREASED GLUCOSE; Start 05/15/17 at 22:00 Glucagon (Glucagen) 1 mg Q15M PRN IM DECREASED GLUCOSE; Start 05/15/17 at 22: 00 Glucose 15 gm 15 gm Q15M PRN BUCCAL DECREASED GLUCOSE; Start 05/15/17 at 22:00 Cefepime HCl 50 ml @ 100 mls/hr DAILY IVPB Last administered on 05/20/17 09: 17; Admin Dose 100 MLS/HR; Start 05/16/17 at 09:00 Dextrose (D5W) 1,000 ml @ 50 mls/hr Q20H IV Last administered on 05/20/17 06 :35; Admin Dose 50 MLS/HR; Start 05/16/17 at 09:00 Sulfacetamide Sodium (Bleph-10 Oph Drop) 1 drop BID BOTH EYES Last administered on 05/20/17 09:55; Admin Dose 1 DROP; Start 05/16/17 at 21:00 Amiodarone HCl (Cordarone) 200 mg DAILY PO Last administered on 05/20/17 09: 46; Admin Dose 200 MG; Start 05/18/17 at 16:00 Collagenase 1 applic 1 applic DAILY TOP Last administered on 05/19/17 10:17; Admin Dose 1 APPLIC; Start 05/18/17 at 21:00 Norepinephrine 250 ml @ 1.875 mls/ hr TITRATE IV Last administered on 05:40; Admin Dose 4.688 MLS/HR; Start 05/19/17 at 18:30 Daptomycin/Sodium Chloride (Cubicin/NS) 100 ml @ 200 mls/hr Q48H IVPB Last administered on 05/19/17 21:33; Admin Dose 200 MLS/HR; Start 05/19/17 at 20: 00 Miscellaneous Information VANCO RANDOM LEVEL... ONCE ONCE XX ; Start 05/20/17 at 11:00; Stop 05/20/17 at 11:01; Status UNV Magnesium Sulfate 100 ml @ 25 mls/hr ONCE ONCE IVPB ; Start 05/20/17 at 11:00 ; Stop 05/20/17 at 14:59; Status UNV Dextrose/Sodium Chloride (D5-1/2ns) 1,000 ml @ 50 mls/hr Q20H IV ; Start 05/20 at 11:00; Status UNV VIV FORD MD May 20, 2017 11:21
[2017-05-20] MEDS ORDERED: MAGNESIUM SULFATE 4 GM/100 ML 100 ML IVPB ONE (12:00)
[2017-05-20] MEDS: DEXTROSE 5%-0.45% NACL 1,000 ML IV SCH (12:24)
[2017-05-20] MEDS: COLLAGENASE 30 GM TUBE TOP SCH (12:25)
[2017-05-20] MEDS: BALSAM PERU/CASTOR OIL 60 GM TUBE TOP SCH ×2 (12:26→21:12)
[2017-05-20] MEDS: VANCOMYCIN 1 GM in NS 250 ML IVPB SCH (16:58)
[2017-05-20] MEDS: ATORVASTATIN 20 MG TAB PO SCH (21:11)
--- NOTE | 2017-05-20 22:44 | CONS ---
DATE OF ADMISSION: 05/15/2017 DATE OF CONSULTATION: 05/20/2017 TYPE OF CONSULTATION: Infectious disease. REASON FOR CONSULTATION: Antibiotic management. HISTORY OF PRESENT ILLNESS: Alexx Hooper is an 89-year-old male being admitted currently to the ICU with hypotension secondary to dehydration and early sepsis. The patient was sent to the emerge ncy room from dialysis because of hypotension. He was discharged from the hospital a few days prior to his admission on the with symptomatic anemia requiring a blood transfusion. He had dialysi s yesterday. Today, his blood pressure was 90/40. He takes metoprolol 12.5 mg b.i.d. The patient also has a history of dementia and urinates into a diaper. On admission, his white count was 9.6, H and H was 10.8 and 35, platelet count of 166. BUN and creatinine 70/8.1. Glucose of 138. PAST MEDICAL HISTORY: Positive for UTI prior, thrombocytopenia. The patient also has a history of anemia of chronic disease, end-stage renal disease on dialysis, benign prostatic hypertrophy, adult onset diabetes, pacemaker placement and a history of prior stroke. PAST SURGICAL HISTORY: Status post chest dialysis catheter in the past as well as pacemaker placeme nt and catheterization. FAMILY HISTORY: Noncontributory. SOCIAL HISTORY: He is a former smoker. He does not drink or abuse drugs. ALLERGIES: NONE TO PENICILLIN, SULFA OR FOODS. MEDICATIONS: Per chart. REVIEW OF SYSTEMS: Noncontributory. HOSPITAL COURSE: The patient has Enterococcus in his blood as 05/15/2017. His white count today is 10.8, H and H of 8.9 and 27.9, platelet count of 102,000. BUN and creatinine 36/5.82. His chest x -ray shows cardiomegaly with calcified atherosclerosis in the aorta, central pulmonary vascular rehana estion and interstitial prominence in both lungs, bilateral mid and lower lobe lung infiltrates comb ined with moderate pleural effusions. PHYSICAL EXAMINATION: GENERAL: The patient is a frail-appearing male who was awake, nonverbal, in no acute distress. VITAL SIGNS: Stable. He is afebrile. SKIN: He has some sacral skin wounds. HEENT: Within normal limits. NECK: Supple. LYMPH NODES: None palpable. CHEST: Decreased breath sounds at the bases. HEART: Without murmur or gallop. He has an irregularly irregular rhythm. ABDOMEN: Soft, nontender, nondistended, without organosplenomegaly or masses. EXTREMITIES: Without cyanosis or clubbing. He has some pedal edema bilaterally. RECTAL AND GENITAL: Deferred. NEUROLOGIC: The patient has dementia. He has no focal neurological abnormalities. IMPRESSION AND PLAN: The patient has septic shock secondary to pneumonia and bacteremia. He is on both vancomycin and daptomycin which is not necessary, but he is on vancomycin. The Enterococcus is sensitive to ampicillin, penicillin and vancomycin. Probably will continue him on vancomycin and d iscontinue the daptomycin. He has a PermCath in place, and this also can be a source of infection, I believe that we can repeat blood cultures and see if the bacteremia persists. Also, get some spu joyce cultures to see if we can grew out Enterococcus. If there is a question, we may have to remove the PermCath. He is hyponatremic, anemic, end-stage renal disease. As noted, he has dementia, paro xysmal atrial fibrillation, history of a cerebrovascular accident, aortic stenosis, sick sinus syndr ome status post permanent pacemaker placement. The patient is currently in the intensive care unit secondary to septic shock. Nasogastric tube was also placed. At this point, will discontinue the d aptomycin and consider removing the PermCath. I will dictate my findings to the hospitalist. Dictated By: ZUHAIR CAVANAUGH MD, JD/DARON Conf#: [id number] DID#: [id number]
[2017-05-21] VITALS (59 sets, daily range): BP systolic 86–149; BP diastolic 40–99; PULSE 63–109; RESP 12–32
[2017-05-21] MEDS: ACCU-CHEK XX SCH (02:00)
[2017-05-21] MEDS: DEXTROSE 5%-0.45% NACL 1,000 ML IV SCH (05:42)
[2017-05-21] MEDS: INSULIN ASPART [NOVOLOG] 3 ML PEN SC SCH ×2 (08:57→11:30)
[2017-05-21] MEDS: DONEPEZIL 5 MG TAB PO SCH (08:58)
[2017-05-21] MEDS: CEFEPIME 1GM/50 ML (PMX) 50 ML IVPB SCH (08:58)
[2017-05-21] MEDS: SULFACETAMIDE 10% 15 ML OPH BOTH EYES SCH ×2 (08:58→21:34)
[2017-05-21] MEDS: BALSAM PERU/CASTOR OIL 60 GM TUBE TOP SCH ×2 (08:59→21:34)
[2017-05-21] MEDS: ASPIRIN (EC) 81 MG TAB PO SCH ×2 (08:59→09:00)
[2017-05-21] MEDS: FAMOTIDINE 20 MG TAB PO SCH (08:59)
[2017-05-21] MEDS: AMIODARONE 200 MG TAB PO SCH (08:59)
[2017-05-21] MEDS: COLLAGENASE 30 GM TUBE TOP SCH (08:59)
[2017-05-21] MEDS: MEGESTROL 40 MG TAB PO SCH (08:59)
[2017-05-21] MEDS: LORATADINE 10 MG TAB PO SCH (08:59)
[2017-05-21] MEDS: FOLIC ACID 1 MG TAB PO SCH (08:59)
[2017-05-21] MEDS ORDERED: SOD CHLORIDE 0.9% 1,000 ML IV SCH (11:00)
[2017-05-21] MEDS: Insulin NOVOLOG SS MILD Algorithm (NPO/TPN/ENTERAL FEEDS) SC SCH ×3 (13:00→21:00)
--- NOTE | 2017-05-21 14:07 | PN ---
DATE: 05/21/2017 SUBJECTIVE: No acute events. The patient is lethargic, looks comfortable. He is off pressors. VITAL SIGNS: Temperature 96.9, pulse 109, respirations 20, blood pressure 143/48, saturation 99% on 2 liters. LABORATORY DATA: WBC 7.7, hemoglobin and hematocrit 8 and 24.9, platelets 97, neutrophils 76.4. INDWELLINGS: The patient has right chest Perm-A-Cath. MICROBIOLOGY: Blood culture on admission growing enterococcus species. Repeat blood cultures from 05/20/2017 negative. DIAGNOSTICS: Chest x-ray on admission revealed bilateral mid and lower lung infiltrate, combined wi th moderate pleural effusion. ANTIMICROBIALS: The patient is on: 1. IV vancomycin. 2. Cefepime. PHYSICAL EXAMINATION: GENERAL: Fragile, elderly man who is lethargic, in no distress. HEENT: Head atraumatic, normocephalic. Sclerae anicteric. Buccal mucosa dry. NECK: Supple. CHEST: Rise symmetrical. Breath sounds diminished to bases. HEART: S1, S2. ABDOMEN: Soft, bowel tones present. EXTREMITIES: Without cyanosis. ASSESSMENT: 1. Septic shock. 2. Enterococcal bacteremia, questionable secondary to PermCath versus pneumonia. 3. Healthcare-associated pneumonia, possibly aspiration event. 4. End-stage renal disease, hemodialysis dependent. 5. Anemia. 6. Sacral decubitus. 7. Paroxysmal atrial fibrillation. 8. Failure to thrive. 9. History of cerebrovascular accident. PLAN: The patient remains hemodynamically stable. Repeat blood culture is negative. He is on appr opriate antimicrobials. White blood cell count decreased to 7.7 today. We will order chest x-ray. Continue him on current antimicrobials, continue anti-aspiration precautions and plan to start him on tube feedings via NG tube. Dictated By: JACK CHAN BEH[facility]IOR[facility] HEALTH THERAPIST for ZUHAIR CLINE/DARON Conf#: [id number] DID#: [id number]
--- NOTE | 2017-05-21 15:51 | RADRPT ---
PROCEDURE: XR Chest. CLINICAL INDICATION: Shortness of breath. TECHNIQUE: Single frontal view. COMPARISON: 05/15/2017. FINDINGS: There is a new nasogastric tube with the tip in the stomach. The tunneled right internal jugular vei n dialysis catheter and left-sided dual lead permanent pacemaker remain in satisfactory position. Bilateral air space and interstitial disease consistent with pulmonary edema is unchanged. There is atelectasis at the lung bases. The heart is mildly enlarged. There is calcification in the aorta consistent with atherosclerosis. There are moderate bilateral pleural effusions. There is no pneumothorax. IMPRESSION: 1. Nasogastric tube tip in the stomach. 2. No other change from 05/15/2017. RPTAT: QQ .Luis Cruz MD, MD Date Time Electronically viewed and signed by .Luis Cruz MD, MD on 05/21/2017 15:50 .R/
--- NOTE | 2017-05-21 16:49 | PN ---
Date/Time of Note Date/Time of Note DATE: 05/21/17 TIME: 16:42 Assessment/Plan VTE Prophylaxis VTE Prophylaxis Intervention: SCD's Lines/Catheters IV Catheter Type (from [facility]): Peripheral IV Assessment/Plan Chief Complaint/Hosp Course Assessment/Plan 1. Septic shock secondary to bacteremia vs pneumonia - Patient was transferred to ICU for pressor support , now off pressors - Patient had +blood cultures for enterococcus - ID consultation placed and will discuss if believe permacath source of infection and needing to be removed? - ECHO ordered to rule out endocarditis - Repeat blood cultures ordered as well - On Vancomycin, cefepime 2. Hyponatremia - Will continue to monitor - Urine studies not possible 2/2 no urine production -? volume overload/renal failure/HD -starting tube feeds with water flush, stopping Iv fluids, monitor 3. Anemia, chronic, CKD related, s/p transfusion - remains stable - Continue to monitor and transfuse if <7 4. ESRD, DD, on HD, electrolyte abnormalities - Nephrology on board and consultation appreciated - Will need to address removal of permacath and placement temporary line for HD if ID suspicious for permacath infection source. - Discussed with son the effects HD has been on his father but still wants to continue. 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 5. fail to thrive, moderate malnutrition with hypoalbuminemia - Able to take in small amounts of Pureed PO but NPO when not alert -now more alert, speech therapy ordered. may have to consider peg tube in the future. 6. paroxysmal atrial fibrillation, sinus rhythm, on metoprolol, not a candidate for anticoagulant - Cardiology on board and consultation appreciated. HR controlled 7. history of cerebrovascular accident 8. aortic stenosis 9. sick sinus syndrome status post permanent pacemaker - pacer interrogated and shows normal pacing function 10. dyslipidemia, on statin 11. dementia, chronic, stable 12. Disposition - Continue monitoring patient in ICU -if off pressors tomorrow, DG tomorrow. >35 minutes of critical care time spent with patient. Daughter at bedside and updated on condition of patient. Still would like to pursue current plan of care. Problems: Subjective 24 Hr Interval Summary Free Text/Dictation very mobile today, patient's son at bedside, states patient is scratching his sacral ulcer frequently. Exam/Review of Systems Vital Signs Vitals Vital Signs Date Time Temp Pulse Resp B/P Pulse Ox O2 Delivery O2 Flow Rate FiO2 05/21/17 16:00 97.1 85 18 94/57 100 Nasal Cannula 2.0 Intake and Output 05/20/17 05/20/17 05/21/17 15:00 23:00 07:00 Intake Total 353.125 ml 747.813 ml 358.438 ml Output Total 0 ml 0 ml 0 ml Balance 353.125 ml 747.813 ml 358.438 ml Exam General: frail appearing, NAD, awake, easily aroused HEENT: Atraumatic, normocephalic. The pupils are equal, round and reactive. Neck: Supple with full range of motion. Lungs: Coarse breath sounds bilaterally, no wheezes Heart: Normal S1-S2, regular rate, irregularly irregular rhythm Abdomen: Soft , nontender, nondistended , bowel sounds are present. No guarding no rebound tenderness Extremities: +pedal edema b/l. Normal to inspection, no cyanosis Skin: Sacral skin wound Results Result Diagram: 05/21/17 0810 05/21/17 0541 Results 24 hrs Laboratory Tests Test 05/20/17 17:33 05/20/17 21:13 05/21/17 05:41 05/21/17 08:10 Bedside Glucose 109 125 Sodium Level 130 L Potassium Level 5.4 H Chloride Level 99 Carbon Dioxide Level 22 Anion Gap 14 Blood Urea Nitrogen 41 H Creatinine 6.27 H Glucose Level 117 Calcium Level 6.9 L Phosphorus Level 4.2 Magnesium Level 2.9 #H Albumin 2.2 L White Blood Count 7.7 # Red Blood Count 2.92 L Hemoglobin 8.0 L Hematocrit 24.9 L Mean Corpuscular Volume 85.3 Mean Corpuscular Hemoglobin 27.4 L Mean Corpuscular Hemoglobin Concent 32.1 Red Cell Distribution Width 18.3 H Platelet Count 97 L Mean Platelet Volume 10.6 H Neutrophils % 76.4 Lymphocytes % 9.8 L Monocytes % 8.1 Eosinophils % 5.0 Basophils % 0.3 Nucleated Red Blood Cells % 0.0 Neutrophils # 5.9 Lymphocytes # 0.8 Monocytes # 0.6 Eosinophils # 0.4 Basophils # 0.0 Nucleated Red Blood Cells # 0.0 Test 05/21/17 08:57 05/21/17 11:36 05/21/17 12:06 Bedside Glucose 126 118 Osmolality 283 Medications Medications Current Medications Ondansetron HCl (Zofran Inj) 4 mg Q6H PRN IV NAUSEA AND/OR VOMITING; Start at 21:30 Acetaminophen (Tylenol Tab) 650 mg Q6H PRN PO PAIN LEVEL 1-3 OR FEVER; Start 05/15/17 at 21:30 Docusate Sodium (Colace) 100 mg Q12H PRN PO CONSTIPATION; Start 05/15/17 at 21 :30 Bisacodyl (Dulcolax) 5 mg DAILY PRN PO CONSTIPATION; Start 05/15/17 at 21:30 Famotidine (Pepcid) 20 mg DAILY PO Last administered on 05/21/17 08:59; Admin Dose 20 MG; Start 05/16/17 at 09:00 Aspirin (Halfprin) 81 mg DAILY PO Last administered on 05/20/17 09:46; Admin Dose 81 MG; Start 05/16/17 at 09:00 Atorvastatin Calcium (Lipitor) 20 mg HS PO Last administered on 05/20/17 21: 11; Admin Dose 20 MG; Start 05/16/17 at 21:00 Donepezil HCl (Aricept) 5 mg DAILY PO Last administered on 05/21/17 08:58; Admin Dose 5 MG; Start 05/16/17 at 09:00 Folic Acid (Folic Acid) 1 mg DAILY PO Last administered on 05/21/17 08:59; Admin Dose 1 MG; Start 05/16/17 at 09:00 Loratadine (Claritin) 10 mg DAILY PO Last administered on 05/21/17 08:59; Admin Dose 10 MG; Start 05/16/17 at 09:00 Megestrol Acetate (Megace) 40 mg DAILY PO Last administered on 05/21/17 08:59 ; Admin Dose 40 MG; Start 05/16/17 at 09:00 Diagnostic Test (Pha) (Accu-Chek) 1 ea 02 XX ; Start 05/16/17 at 02:00 Miscellaneous Information 1 ea NOTE XX ; Start 05/15/17 at 22:00 Glucose (Glutose) 15 gm Q15M PRN PO DECREASED GLUCOSE; Start 05/15/17 at 22:00 Glucose (Glutose) 22.5 gm Q15M PRN PO DECREASED GLUCOSE; Start 05/15/17 at 22: 00 Dextrose (D50w Syringe) 25 ml Q15M PRN IV DECREASED GLUCOSE; Start 05/15/17 at 22:00 Dextrose (D50w Syringe) 50 ml Q15M PRN IV DECREASED GLUCOSE; Start 05/15/17 at 22:00 Glucagon (Glucagen) 1 mg Q15M PRN IM DECREASED GLUCOSE; Start 05/15/17 at 22: 00 Glucose 15 gm 15 gm Q15M PRN BUCCAL DECREASED GLUCOSE; Start 05/15/17 at 22:00 Cefepime HCl (Maxipime 1gm/50 ml (Pmx)) 50 ml @ 100 mls/hr DAILY IVPB Last administered on 05/21/17 08:58; Admin Dose 100 MLS/HR; Start 05/16/17 at 09: 00 Sulfacetamide Sodium (Bleph-10 Oph Drop) 1 drop BID BOTH EYES Last administered on 05/21/17 08:58; Admin Dose 1 DROP; Start 05/16/17 at 21:00 Amiodarone HCl (Cordarone) 200 mg DAILY PO Last administered on 05/21/17 08: 59; Admin Dose 200 MG; Start 05/18/17 at 16:00 Collagenase 1 applic 1 applic DAILY TOP Last administered on 05/21/17 08:59; Admin Dose 1 APPLIC; Start 05/18/17 at 21:00 Norepinephrine 250 ml @ 1.875 mls/ hr TITRATE IV Last administered on 05:40; Admin Dose 4.688 MLS/HR; Start 05/19/17 at 18:30 Vancomycin HCl (Vancocin) 250 ml @ 125 mls/hr Q96H IVPB Last administered on 05/20/17 16:58; Admin Dose 125 MLS/HR; Start 05/20/17 at 17:00 Insulin Aspart (Novolog Insulin Pen) (Adult SC Insulin - Mild Algorithm)... Q4 SC ; Start 05/21/17 at 13:00 TYLER MADDEN May 21, 2017 16:49
[2017-05-21] MEDS ORDERED: INSULIN ASPART [NOVOLOG] 3 ML PEN SC SCH (17:00)
--- NOTE | 2017-05-21 17:40 | CONS ---
Date/Time of Note Date/Time of Note DATE: 05/21/17 TIME: 17:39 Consult Date/Type/Reason Admit Date/Time May 15, 2017 at 20:02 Initial Consult Date 05/16/17 Type of Consultation: cardiology Ordering Provider: SUNIL GARCIA Subjective CARD F/U: S: . d/w Dr Valle D/W STAFF AND rhythm was reviewed. pt remains in mostly paced rhythm with frequent PVC events noted. pt is in ICU remains nonverbal and does not answer my questions. 0: General: thin man. no acute distress HEENT: NC/AT. pupils are equal. round. NECK: . no stridor. CV: RRR systolic murmur; no gallop or rubs. PULM: no wheezing. + mild rhonchi. GI: SOFT, NT, ND, no rebound or guarding Extremity: trace B/L LE edema. no clubbing. neuro: awake and alert, does not answer my questions. Psych: appears anxious rectal: deferred : normal ECG NSR. ECHO reviewed recently: 1. Normal left ventricular systolic function. Normal left ventricular cavity size. Left ventricle not well visualized. Moderate concentric left ventricular hypertrophy. Ejection fraction is visually estimated at 60 %. Abnormal Diastolic Function. 2. Mitral valve is not well visualized. Mild mitral leaflet calcification. Mild mitral annular calcification. Trace mitral regurgitation. 3. Aortic valve not well visualized. Moderate aortic stenosis. Aortic valve Max velocity 2.90 m/sec. Max PG 34.00 mmHg. Mean PG 18.00 mmHg. Aortic cusps appear moderately calcified. 4. Normal appearance of the tricuspid valve. Tricuspid valve not well visualized. Estimated peak PA systolic pressure 29 mmHg. There is mild tricuspid regurgitation. 5. very suboptimal study. Objective Vital Signs Date Time Temp Pulse Resp B/P Pulse Ox O2 Delivery O2 Flow Rate FiO2 05/21/17 16:30 75 15 104/68 99 Nasal Cannula 2.0 05/21/17 16:00 97.1 Intake and Output 05/20/17 05/20/17 05/21/17 14:59 22:59 06:59 Intake Total 383.750 ml 772.813 ml 408.438 ml Output Total 0 ml 0 ml 0 ml Balance 383.750 ml 772.813 ml 408.438 ml Results/Medications Result Diagram: 05/21/17 0810 05/21/17 0541 Results 24 hrs Laboratory Tests Test 05/20/17 21:13 05/21/17 05:41 05/21/17 08:10 05/21/17 08:57 Bedside Glucose 125 126 Sodium Level 130 L Potassium Level 5.4 H Chloride Level 99 Carbon Dioxide Level 22 Anion Gap 14 Blood Urea Nitrogen 41 H Creatinine 6.27 H Glucose Level 117 Calcium Level 6.9 L Phosphorus Level 4.2 Magnesium Level 2.9 #H Albumin 2.2 L White Blood Count 7.7 # Red Blood Count 2.92 L Hemoglobin 8.0 L Hematocrit 24.9 L Mean Corpuscular Volume 85.3 Mean Corpuscular Hemoglobin 27.4 L Mean Corpuscular Hemoglobin Concent 32.1 Red Cell Distribution Width 18.3 H Platelet Count 97 L Mean Platelet Volume 10.6 H Neutrophils % 76.4 Lymphocytes % 9.8 L Monocytes % 8.1 Eosinophils % 5.0 Basophils % 0.3 Nucleated Red Blood Cells % 0.0 Neutrophils # 5.9 Lymphocytes # 0.8 Monocytes # 0.6 Eosinophils # 0.4 Basophils # 0.0 Nucleated Red Blood Cells # 0.0 Test 05/21/17 11:36 05/21/17 12:06 Osmolality 283 Bedside Glucose 118 Medications Current Medications Ondansetron HCl (Zofran Inj) 4 mg Q6H PRN IV NAUSEA AND/OR VOMITING; Start at 21:30 Acetaminophen (Tylenol Tab) 650 mg Q6H PRN PO PAIN LEVEL 1-3 OR FEVER; Start 05/15/17 at 21:30 Docusate Sodium (Colace) 100 mg Q12H PRN PO CONSTIPATION; Start 05/15/17 at 21 :30 Bisacodyl (Dulcolax) 5 mg DAILY PRN PO CONSTIPATION; Start 05/15/17 at 21:30 Famotidine (Pepcid) 20 mg DAILY PO Last administered on 05/21/17 08:59; Admin Dose 20 MG; Start 05/16/17 at 09:00 Aspirin (Halfprin) 81 mg DAILY PO Last administered on 05/20/17 09:46; Admin Dose 81 MG; Start 05/16/17 at 09:00 Atorvastatin Calcium (Lipitor) 20 mg HS PO Last administered on 05/20/17 21: 11; Admin Dose 20 MG; Start 05/16/17 at 21:00 Donepezil HCl (Aricept) 5 mg DAILY PO Last administered on 05/21/17 08:58; Admin Dose 5 MG; Start 05/16/17 at 09:00 Folic Acid (Folic Acid) 1 mg DAILY PO Last administered on 05/21/17 08:59; Admin Dose 1 MG; Start 05/16/17 at 09:00 Loratadine (Claritin) 10 mg DAILY PO Last administered on 05/21/17 08:59; Admin Dose 10 MG; Start 05/16/17 at 09:00 Megestrol Acetate (Megace) 40 mg DAILY PO Last administered on 05/21/17 08:59 ; Admin Dose 40 MG; Start 05/16/17 at 09:00 Diagnostic Test (Pha) (Accu-Chek) 1 ea 02 XX ; Start 05/16/17 at 02:00 Miscellaneous Information 1 ea NOTE XX ; Start 05/15/17 at 22:00 Glucose (Glutose) 15 gm Q15M PRN PO DECREASED GLUCOSE; Start 05/15/17 at 22:00 Glucose (Glutose) 22.5 gm Q15M PRN PO DECREASED GLUCOSE; Start 05/15/17 at 22: 00 Dextrose (D50w Syringe) 25 ml Q15M PRN IV DECREASED GLUCOSE; Start 05/15/17 at 22:00 Dextrose (D50w Syringe) 50 ml Q15M PRN IV DECREASED GLUCOSE; Start 05/15/17 at 22:00 Glucagon (Glucagen) 1 mg Q15M PRN IM DECREASED GLUCOSE; Start 05/15/17 at 22: 00 Glucose 15 gm 15 gm Q15M PRN BUCCAL DECREASED GLUCOSE; Start 05/15/17 at 22:00 Cefepime HCl (Maxipime 1gm/50 ml (Pmx)) 50 ml @ 100 mls/hr DAILY IVPB Last administered on 05/21/17 08:58; Admin Dose 100 MLS/HR; Start 05/16/17 at 09: 00 Sulfacetamide Sodium (Bleph-10 Oph Drop) 1 drop BID BOTH EYES Last administered on 05/21/17 08:58; Admin Dose 1 DROP; Start 05/16/17 at 21:00 Amiodarone HCl (Cordarone) 200 mg DAILY PO Last administered on 05/21/17 08: 59; Admin Dose 200 MG; Start 05/18/17 at 16:00 Collagenase 1 applic 1 applic DAILY TOP Last administered on 05/21/17 08:59; Admin Dose 1 APPLIC; Start 05/18/17 at 21:00 Norepinephrine 250 ml @ 1.875 mls/ hr TITRATE IV Last administered on 05:40; Admin Dose 4.688 MLS/HR; Start 05/19/17 at 18:30 Vancomycin HCl (Vancocin) 250 ml @ 125 mls/hr Q96H IVPB Last administered on 05/20/17 16:58; Admin Dose 125 MLS/HR; Start 05/20/17 at 17:00 Insulin Aspart (Novolog Insulin Pen) (Adult SC Insulin - Mild Algorithm)... Q4 SC ; Start 05/21/17 at 13:00 Assessment/Plan Chief Complaint/Hosp Course 1. abnormal ECG and intermittent arrhythmia with P afib and NSVT 2. hypotension 3. ESRD ON HD 4. HX CAD, CO 5. HX dementia 6. P afib 7. sick sinus syndrome 8. s/p PPM 9/ encephalopathy 10. hx CVA 11. severe and worsening anemia . 12. Dyslipidemia: on lipitor Recommendations: HD as per renal Pacemaker was interrogated 05.16.17 and personally reviewed. normal pacing function pt has not been anticoagulated due to concerns about anemia, fall and bleeding. Resume low dose betablocker once BP remains stable enough to tolerate it. cont ASA cont lipitor patient has completed amiodarone drip. will start po amiodarone tomorrow. Thank you for his referral. I will continue to follow along with you. MELVIN BRODERICK MD [facility] Problems: MELVIN BRODERICK MD May 21, 2017 17:40
--- NOTE | 2017-05-21 20:08 | CONS ---
Date/Time of Note Date/Time of Note DATE: 05/21/17 TIME: 20:06 Assessment/Plan Assessment/Plan Chief Complaint/Hosp Course - ESRD ON HEMODIALYSIS - ANEMIA - PNEUMONIA - CAD / CHF - HYPOTENSION - DM - LOW ALBUMIN plan: In ICU Bedside dialysis Hemodynamic support with IV pressors Minimal UF due to low BP H/H stable Problems: Consultation Date/Type/Reason Admit Date/Time May 15, 2017 at 20:02 Initial Consult Date 05/16/17 Type of Consultation: NEPHROLOGY Reason for Consultation ESRD Referring Provider: SUNIL GARCIA 24 HR Interval Summary Subjective hx not possible: pt non-verbal, pt critical Constitutional: disoriented Exam/Review of Systems Vital Signs Vitals Vital Signs Date Time Temp Pulse Resp B/P Pulse Ox O2 Delivery O2 Flow Rate FiO2 05/21/17 19:46 98.5 05/21/17 19:30 102 22 96/51 98 Nasal Cannula 05/21/17 19:25 3.0 Intake and Output 05/20/17 05/20/17 05/21/17 15:00 23:00 07:00 Intake Total 353.125 ml 747.813 ml 358.438 ml Output Total 0 ml 0 ml 0 ml Balance 353.125 ml 747.813 ml 358.438 ml Exam Constitutional: non-verbal Psych: confusion Head: normocephalic Respiratory: crackles/rales Cardiovascular: edema, systolic murmur Gastrointestinal: soft Results Result Diagram: 05/21/17 0810 05/21/17 0541 Results 24 hrs Laboratory Tests Test 05/20/17 21:13 05/21/17 05:41 05/21/17 08:10 05/21/17 08:57 Bedside Glucose 125 126 Sodium Level 130 L Potassium Level 5.4 H Chloride Level 99 Carbon Dioxide Level 22 Anion Gap 14 Blood Urea Nitrogen 41 H Creatinine 6.27 H Glucose Level 117 Calcium Level 6.9 L Phosphorus Level 4.2 Magnesium Level 2.9 #H Albumin 2.2 L White Blood Count 7.7 # Red Blood Count 2.92 L Hemoglobin 8.0 L Hematocrit 24.9 L Mean Corpuscular Volume 85.3 Mean Corpuscular Hemoglobin 27.4 L Mean Corpuscular Hemoglobin Concent 32.1 Red Cell Distribution Width 18.3 H Platelet Count 97 L Mean Platelet Volume 10.6 H Neutrophils % 76.4 Lymphocytes % 9.8 L Monocytes % 8.1 Eosinophils % 5.0 Basophils % 0.3 Nucleated Red Blood Cells % 0.0 Neutrophils # 5.9 Lymphocytes # 0.8 Monocytes # 0.6 Eosinophils # 0.4 Basophils # 0.0 Nucleated Red Blood Cells # 0.0 Test 05/21/17 11:36 05/21/17 12:06 05/21/17 17:58 Osmolality 283 Bedside Glucose 118 112 Medications Medications Current Medications Ondansetron HCl (Zofran Inj) 4 mg Q6H PRN IV NAUSEA AND/OR VOMITING; Start at 21:30 Acetaminophen (Tylenol Tab) 650 mg Q6H PRN PO PAIN LEVEL 1-3 OR FEVER; Start 05/15/17 at 21:30 Docusate Sodium (Colace) 100 mg Q12H PRN PO CONSTIPATION; Start 05/15/17 at 21 :30 Bisacodyl (Dulcolax) 5 mg DAILY PRN PO CONSTIPATION; Start 05/15/17 at 21:30 Famotidine (Pepcid) 20 mg DAILY PO Last administered on 05/21/17 08:59; Admin Dose 20 MG; Start 05/16/17 at 09:00 Aspirin (Halfprin) 81 mg DAILY PO Last administered on 05/20/17 09:46; Admin Dose 81 MG; Start 05/16/17 at 09:00 Atorvastatin Calcium (Lipitor) 20 mg HS PO Last administered on 05/20/17 21: 11; Admin Dose 20 MG; Start 05/16/17 at 21:00 Donepezil HCl (Aricept) 5 mg DAILY PO Last administered on 05/21/17 08:58; Admin Dose 5 MG; Start 05/16/17 at 09:00 Folic Acid (Folic Acid) 1 mg DAILY PO Last administered on 05/21/17 08:59; Admin Dose 1 MG; Start 05/16/17 at 09:00 Loratadine (Claritin) 10 mg DAILY PO Last administered on 05/21/17 08:59; Admin Dose 10 MG; Start 05/16/17 at 09:00 Megestrol Acetate (Megace) 40 mg DAILY PO Last administered on 05/21/17 08:59 ; Admin Dose 40 MG; Start 05/16/17 at 09:00 Diagnostic Test (Pha) (Accu-Chek) 1 ea 02 XX ; Start 05/16/17 at 02:00 Miscellaneous Information 1 ea NOTE XX ; Start 05/15/17 at 22:00 Glucose (Glutose) 15 gm Q15M PRN PO DECREASED GLUCOSE; Start 05/15/17 at 22:00 Glucose (Glutose) 22.5 gm Q15M PRN PO DECREASED GLUCOSE; Start 05/15/17 at 22: 00 Dextrose (D50w Syringe) 25 ml Q15M PRN IV DECREASED GLUCOSE; Start 05/15/17 at 22:00 Dextrose (D50w Syringe) 50 ml Q15M PRN IV DECREASED GLUCOSE; Start 05/15/17 at 22:00 Glucagon (Glucagen) 1 mg Q15M PRN IM DECREASED GLUCOSE; Start 05/15/17 at 22: 00 Glucose 15 gm 15 gm Q15M PRN BUCCAL DECREASED GLUCOSE; Start 05/15/17 at 22:00 Cefepime HCl (Maxipime 1gm/50 ml (Pmx)) 50 ml @ 100 mls/hr DAILY IVPB Last administered on 05/21/17 08:58; Admin Dose 100 MLS/HR; Start 05/16/17 at 09: 00 Sulfacetamide Sodium (Bleph-10 Oph Drop) 1 drop BID BOTH EYES Last administered on 05/21/17 08:58; Admin Dose 1 DROP; Start 05/16/17 at 21:00 Amiodarone HCl (Cordarone) 200 mg DAILY PO Last administered on 05/21/17 08: 59; Admin Dose 200 MG; Start 05/18/17 at 16:00 Collagenase 1 applic 1 applic DAILY TOP Last administered on 05/21/17 08:59; Admin Dose 1 APPLIC; Start 05/18/17 at 21:00 Vancomycin HCl (Vancocin) 250 ml @ 125 mls/hr Q96H IVPB Last administered on 05/20/17 16:58; Admin Dose 125 MLS/HR; Start 05/20/17 at 17:00 Insulin Aspart (Novolog Insulin Pen) (Adult SC Insulin - Mild Algorithm)... Q4 SC ; Start 05/21/17 at 13:00 DENVER ANTONY MD May 21, 2017 20:08
[2017-05-21] MEDS: ATORVASTATIN 20 MG TAB PO SCH (21:34)
[2017-05-22] VITALS (81 sets, daily range): BP systolic 67–130; BP diastolic 37–93; PULSE 69–125; RESP 14–27
[2017-05-22] MEDS: Insulin NOVOLOG SS MILD Algorithm (NPO/TPN/ENTERAL FEEDS) SC SCH ×6 (01:00→21:00)
[2017-05-22] MEDS: ACCU-CHEK XX SCH (01:26)
[2017-05-22] MEDS ORDERED: SOD CHLORIDE 0.9% 250 ML IV ONE (05:30)
[2017-05-22] MEDS ORDERED: PHENYLephrine 20MG IN 250 ML 250 ML IV SCH (06:21)
[2017-05-22] MEDS: MEGESTROL 40 MG TAB PO SCH (08:50)
[2017-05-22] MEDS: SULFACETAMIDE 10% 15 ML OPH BOTH EYES SCH ×2 (08:50→21:16)
[2017-05-22] MEDS: CEFEPIME 1GM/50 ML (PMX) 50 ML IVPB SCH (08:50)
[2017-05-22] MEDS: FAMOTIDINE 20 MG TAB PO SCH (08:50)
[2017-05-22] MEDS: FOLIC ACID 1 MG TAB PO SCH (08:50)
[2017-05-22] MEDS: LORATADINE 10 MG TAB PO SCH (08:50)
[2017-05-22] MEDS: ASPIRIN (EC) 81 MG TAB PO SCH (08:50)
[2017-05-22] MEDS: DONEPEZIL 5 MG TAB PO SCH (08:50)
[2017-05-22] MEDS: BALSAM PERU/CASTOR OIL 60 GM TUBE TOP SCH ×2 (08:52→21:17)
[2017-05-22] MEDS: COLLAGENASE 30 GM TUBE TOP SCH (08:52)
[2017-05-22] MEDS: AMIODARONE 200 MG TAB PO SCH (08:53)
[2017-05-22] MEDS ORDERED: LIDOCAINE 1% (MPF) 5 ML VIAL SC ONE (09:30)
[2017-05-22] MEDS ORDERED: POTASSIUM CHLORIDE 20 MEQ POWDER FOR ORAL SOLN PO ONE (10:00)
[2017-05-22] MEDS ORDERED: SOD CHLORIDE 0.9% 1,000 ML IV SCH (10:30)
--- NOTE | 2017-05-22 11:55 | RADRPT ---
Echocardiogram Report Patient Name: TAMANNA LAWSON Gender: Male Date: 1925 Study Date: 20-May-2017 Thermoplastic Technician: CHEIKH Location: 116 Ref. Physician: VIV FORD Quality: Technically Difficult Study Procedures: Transthoracic echocardiogram with complete 2D, M-Mode, and doppler examination. Indications: Endocarditis. 2D/M Mode Doppler Measurement Value Normal Ranges Measurement Value Normal Ranges AoR Diam MM 3.0 cm YANIRA Vmax 0.8 cm2 LA/Ao MM 1.5 YANIRA VTI 0.8 cm2 LA Dimen MM 4.4 cm AV Mean Logan 2.0 m/sec LVIDd 2D 4.1 3.5 - 5.6 cm AV Mean PG 18.4 mmHg LVIDs 2D 2.8 2.1 - 4.1 cm AV Peak Logan 2.9 m/sec LVPWd 2D 1.3 0.6 - 1.1 cm AV Peak PG 33.8 mmHg IVSd 2D 1.3 0.6 - 1.1 cm AV VTI 55.1 cm EDV 2D 72.5 cm3 LVOT Mean Logan 0.5 m/sec ESV 2D 21.8 cm3 LVOT Mean PG 1.3 mmHg EF 2D 60.0 50.0 - 65.0 % LVOT Peak Logan 0.8 m/sec LVOT Diam 2.0 cm LVOT Peak PG 3.9 mmHg LVOT VTI 14.0 cm MV E Peak Logan 0.6 m/sec MV A Peak Logan 1.0 m/sec MV E/A 0.5 MV Decel Time 216 msec MV Decel Jerome 3 MV E/A 0.5 TR Peak Logan 2.5 m/sec TR Peak PG 24.3 mmHg RVSP 32.0 mmHg RA Pressure 8.0 Findings Left Ventricle: Normal left ventricular systolic function. Normal left ventricular cavity size. Mild concentric left ventricular hypertrophy. Ejection fraction is visually estimated at 60 %. Right Ventricle: Normal right ventricular size. Normal right ventricular systolic function. Left Atrium: There is mild enlargement of left atrium. Right Atrium: The right atrium is normal in size. Atrial Septum: Normal atrial septum. Mitral Valve: Normal appearance and function of the mitral valve with trace physiologic regurgitation. Mild mitral leaflet calcification. Mild mitral annular calcification. Trace mitral regurgitation. Aortic Valve: Moderate aortic stenosis. Aortic valve Max velocity 2.95 m/sec. Max PG 34.70 mmHg. Mean PG 19.10 mmHg. Aortic valve area 0.80 cm2. Aortic cusps appear severely calcified. Aortic cusps appear severely restricted. Tricuspid Valve: Normal appearance of the tricuspid valve. Normal appearance and function of the tricuspid valve with mild regurgitation. Estimated peak PA systolic pressure 32 mmHg. Pulmonic Valve: Pulmonic valve not well visualized however velocity is normal. Pericardium: Possible trace pericardial effusion noted. Bilateral small to moderate pleural effusion seen. Aorta: Normal aortic root. IVC: Dilated IVC with respiratory collapse consistent with elevated right atrial pressure. Pulmonary Artery: Not well visualized. Conclusions 1.Normal left ventricular systolic function. Normal left ventricular cavity size. Mild concentric left ventricular hypertrophy. Ejection fraction is visually estimated at 60 %. 2.There is mild enlargement of left atrium. 3.Normal appearance and function of the mitral valve with trace physiologic regurgitation. Mild mitral leaflet calcification. Mild mitral annular calcification. Trace mitral regurgitation. 4.Moderate aortic stenosis. Aortic valve Max velocity 2.95 m/sec. Max PG 34.70 mmHg. Mean PG 19.10 mmHg. Aortic valve area 0.80 cm2. Aortic cusps appear severely calcified. Aortic cusps appear severely restricted. 5.Normal appearance of the tricuspid valve. Normal appearance and function of the tricuspid valve with mild regurgitation. Estimated peak PA systolic pressure 32 mmHg. 6.Dilated IVC with respiratory collapse consistent with elevated right atrial pressure. Electronically Signed By: Steven Howard 22-May-2017 11:55:12 -0700 Patient Name: TAMANNA LAWSON Study Date: 20-May-2017 [id number]
--- NOTE | 2017-05-22 11:55 | RADRPT ---
Echocardiogram Report Patient Name: TAMANNA LAWSON Gender: Male Date: 1925 Study Date: 20-May-2017 Endoscopy Technician: CHEIKH Location: 116 Ref. Physician: VIV FORD Quality: Technically Difficult Study Procedures: Transthoracic echocardiogram with complete 2D, M-Mode, and doppler examination. Indications: Endocarditis. 2D/M Mode Doppler Measurement Value Normal Ranges Measurement Value Normal Ranges AoR Diam MM 3.0 cm YANIRA Vmax 0.8 cm2 LA/Ao MM 1.5 YANIAR VTI 0.8 cm2 LA Dimen MM 4.4 cm AV Mean Logan 2.0 m/sec LVIDd 2D 4.1 3.5 - 5.6 cm AV Mean PG 18.4 mmHg LVIDs 2D 2.8 2.1 - 4.1 cm AV Peak Logan 2.9 m/sec LVPWd 2D 1.3 0.6 - 1.1 cm AV Peak PG 33.8 mmHg IVSd 2D 1.3 0.6 - 1.1 cm AV VTI 55.1 cm EDV 2D 72.5 cm3 LVOT Mean Logan 0.5 m/sec ESV 2D 21.8 cm3 LVOT Mean PG 1.3 mmHg EF 2D 60.0 50.0 - 65.0 % LVOT Peak Logan 0.8 m/sec LVOT Diam 2.0 cm LVOT Peak PG 3.9 mmHg LVOT VTI 14.0 cm MV E Peak Logan 0.6 m/sec MV A Peak Logan 1.0 m/sec MV E/A 0.5 MV Decel Time 216 msec MV Decel Treasure 3 MV E/A 0.5 TR Peak Logan 2.5 m/sec TR Peak PG 24.3 mmHg RVSP 32.0 mmHg RA Pressure 8.0 Findings Left Ventricle: Normal left ventricular systolic function. Normal left ventricular cavity size. Mild concentric left ventricular hypertrophy. Ejection fraction is visually estimated at 60 %. Right Ventricle: Normal right ventricular size. Normal right ventricular systolic function. Left Atrium: There is mild enlargement of left atrium. Right Atrium: The right atrium is normal in size. Atrial Septum: Normal atrial septum. Mitral Valve: Normal appearance and function of the mitral valve with trace physiologic regurgitation. Mild mitral leaflet calcification. Mild mitral annular calcification. Trace mitral regurgitation. Aortic Valve: Moderate aortic stenosis. Aortic valve Max velocity 2.95 m/sec. Max PG 34.70 mmHg. Mean PG 19.10 mmHg. Aortic valve area 0.80 cm2. Aortic cusps appear severely calcified. Aortic cusps appear severely restricted. Tricuspid Valve: Normal appearance of the tricuspid valve. Normal appearance and function of the tricuspid valve with mild regurgitation. Estimated peak PA systolic pressure 32 mmHg. Pulmonic Valve: Pulmonic valve not well visualized however velocity is normal. Pericardium: Possible trace pericardial effusion noted. Bilateral small to moderate pleural effusion seen. Aorta: Normal aortic root. IVC: Dilated IVC with respiratory collapse consistent with elevated right atrial pressure. Pulmonary Artery: Not well visualized. Conclusions 1.Normal left ventricular systolic function. Normal left ventricular cavity size. Mild concentric left ventricular hypertrophy. Ejection fraction is visually estimated at 60 %. 2.There is mild enlargement of left atrium. 3.Normal appearance and function of the mitral valve with trace physiologic regurgitation. Mild mitral leaflet calcification. Mild mitral annular calcification. Trace mitral regurgitation. 4.Moderate aortic stenosis. Aortic valve Max velocity 2.95 m/sec. Max PG 34.70 mmHg. Mean PG 19.10 mmHg. Aortic valve area 0.80 cm2. Aortic cusps appear severely calcified. Aortic cusps appear severely restricted. 5.Normal appearance of the tricuspid valve. Normal appearance and function of the tricuspid valve with mild regurgitation. Estimated peak PA systolic pressure 32 mmHg. 6.Dilated IVC with respiratory collapse consistent with elevated right atrial pressure. Electronically Signed By: Steven Howard 22-May-2017 11:55:12 -0700 Patient Name: TAMANNA LAWSON Study Date: 20-May-2017 [id number]
--- NOTE | 2017-05-22 14:36 | CONS ---
Date/Time of Note Date/Time of Note DATE: 05/22/17 TIME: 14:33 Consult Date/Type/Reason Admit Date/Time May 15, 2017 at 20:02 Initial Consult Date 05/16/17 Type of Consultation: card Ordering Provider: SUNIL GARCIA Subjective CARD F/U: S: D/W STAFF AND rhythm was reviewed. pt remains in mostly paced rhythm events noted. pt is in ICU. pt is back on neosynerphrine drip due to hypotension . remains nonverbal and does not answer my questions. 0: General: thin man. no acute distress HEENT: NC/AT. pupils are equal. round. s/p NG tube in place. NECK: . no stridor. CV: RRR systolic murmur; no gallop or rubs. PULM: no wheezing. + mild rhonchi. GI: SOFT, NT, ND, no rebound or guarding Extremity: trace B/L LE edema. no clubbing. neuro: awake but does not answer my questions. Psych: appears anxious rectal: deferred : normal ECG NSR. ECHO reviewed recently: 1. Normal left ventricular systolic function. Normal left ventricular cavity size. Left ventricle not well visualized. Moderate concentric left ventricular hypertrophy. Ejection fraction is visually estimated at 60 %. Abnormal Diastolic Function. 2. Mitral valve is not well visualized. Mild mitral leaflet calcification. Mild mitral annular calcification. Trace mitral regurgitation. 3. Aortic valve not well visualized. Moderate aortic stenosis. Aortic valve Max velocity 2.90 m/sec. Max PG 34.00 mmHg. Mean PG 18.00 mmHg. Aortic cusps appear moderately calcified. 4. Normal appearance of the tricuspid valve. Tricuspid valve not well visualized. Estimated peak PA systolic pressure 29 mmHg. There is mild tricuspid regurgitation. 5. very suboptimal study. Objective Vital Signs Date Time Temp Pulse Resp B/P Pulse Ox O2 Delivery O2 Flow Rate FiO2 05/22/17 14:15 102 20 85/55 100 Nasal Cannula 2.0 05/22/17 12:00 97.2 Intake and Output 05/21/17 05/21/17 05/22/17 15:00 23:00 07:00 Intake Total 580 ml 340 ml 250 ml Output Total 2500 ml 0 ml 0 ml Balance -1920 ml 340 ml 250 ml Results/Medications Result Diagram: 05/22/17 0546 05/22/17 0546 Results 24 hrs Laboratory Tests Test 05/21/17 17:58 05/21/17 21:10 05/22/17 01:23 05/22/17 05:15 Bedside Glucose 112 115 133 137 Test 05/22/17 05:46 05/22/17 08:54 White Blood Count 10.3 # Red Blood Count 3.24 L Hemoglobin 9.0 L Hematocrit 28.6 L Mean Corpuscular Volume 88.3 Mean Corpuscular Hemoglobin 27.8 L Mean Corpuscular Hemoglobin Concent 31.5 L Red Cell Distribution Width 18.3 H Platelet Count 133 #L Mean Platelet Volume 11.4 H Neutrophils % 69.0 Lymphocytes % 16.6 Monocytes % 9.5 Eosinophils % 4.0 Basophils % 0.5 Nucleated Red Blood Cells % 0.0 Neutrophils # 7.1 Lymphocytes # 1.7 Monocytes # 1.0 H Eosinophils # 0.4 Basophils # 0.1 Nucleated Red Blood Cells # 0.0 Sodium Level 139 Potassium Level 3.3 #L Chloride Level 102 Carbon Dioxide Level 26 Anion Gap 14 Blood Urea Nitrogen 25 #H Creatinine 4.37 #H Glucose Level 122 Calcium Level 7.8 L Phosphorus Level 3.5 Magnesium Level 2.5 Albumin 2.1 L Thyroid Stimulating Hormone (TSH) 5.850 H Free Thyroxine 2.06 H Random Cortisol 19.9 Bedside Glucose 117 Medications Current Medications Ondansetron HCl (Zofran Inj) 4 mg Q6H PRN IV NAUSEA AND/OR VOMITING; Start at 21:30 Acetaminophen (Tylenol Tab) 650 mg Q6H PRN PO PAIN LEVEL 1-3 OR FEVER; Start 05/15/17 at 21:30 Docusate Sodium (Colace) 100 mg Q12H PRN PO CONSTIPATION; Start 05/15/17 at 21 :30 Bisacodyl (Dulcolax) 5 mg DAILY PRN PO CONSTIPATION; Start 05/15/17 at 21:30 Famotidine (Pepcid) 20 mg DAILY PO Last administered on 05/22/17 08:50; Admin Dose 20 MG; Start 05/16/17 at 09:00 Aspirin (Halfprin) 81 mg DAILY PO Last administered on 05/20/17 09:46; Admin Dose 81 MG; Start 05/16/17 at 09:00 Atorvastatin Calcium (Lipitor) 20 mg HS PO Last administered on 05/21/17 21: 34; Admin Dose 20 MG; Start 05/16/17 at 21:00 Donepezil HCl (Aricept) 5 mg DAILY PO Last administered on 05/22/17 08:50; Admin Dose 5 MG; Start 05/16/17 at 09:00 Folic Acid (Folic Acid) 1 mg DAILY PO Last administered on 05/22/17 08:50; Admin Dose 1 MG; Start 05/16/17 at 09:00 Loratadine (Claritin) 10 mg DAILY PO Last administered on 05/22/17 08:50; Admin Dose 10 MG; Start 05/16/17 at 09:00 Megestrol Acetate (Megace) 40 mg DAILY PO Last administered on 05/22/17 08:50 ; Admin Dose 40 MG; Start 05/16/17 at 09:00 Diagnostic Test (Pha) (Accu-Chek) 1 ea 02 XX Last administered on 05/22/17 01 :26; Admin Dose 1 EA; Start 05/16/17 at 02:00 Miscellaneous Information 1 ea NOTE XX ; Start 05/15/17 at 22:00 Glucose (Glutose) 15 gm Q15M PRN PO DECREASED GLUCOSE; Start 05/15/17 at 22:00 Glucose (Glutose) 22.5 gm Q15M PRN PO DECREASED GLUCOSE; Start 05/15/17 at 22: 00 Dextrose (D50w Syringe) 25 ml Q15M PRN IV DECREASED GLUCOSE; Start 05/15/17 at 22:00 Dextrose (D50w Syringe) 50 ml Q15M PRN IV DECREASED GLUCOSE; Start 05/15/17 at 22:00 Glucagon (Glucagen) 1 mg Q15M PRN IM DECREASED GLUCOSE; Start 05/15/17 at 22: 00 Glucose 15 gm 15 gm Q15M PRN BUCCAL DECREASED GLUCOSE; Start 05/15/17 at 22:00 Cefepime HCl (Maxipime 1gm/50 ml (Pmx)) 50 ml @ 100 mls/hr DAILY IVPB Last administered on 05/22/17 08:50; Admin Dose 100 MLS/HR; Start 05/16/17 at 09: 00 Sulfacetamide Sodium (Bleph-10 Oph Drop) 1 drop BID BOTH EYES Last administered on 05/22/17 08:50; Admin Dose 1 DROP; Start 05/16/17 at 21:00 Amiodarone HCl (Cordarone) 200 mg DAILY PO Last administered on 05/22/17 08: 53; Admin Dose 200 MG; Start 05/18/17 at 16:00 Collagenase 1 applic 1 applic DAILY TOP Last administered on 05/22/17 08:52; Admin Dose 1 APPLIC; Start 05/18/17 at 21:00 Vancomycin HCl (Vancocin) 250 ml @ 125 mls/hr Q96H IVPB Last administered on 05/20/17 16:58; Admin Dose 125 MLS/HR; Start 05/20/17 at 17:00 Insulin Aspart (Adult SC Insulin - Mild Algorithm)... Q4 SC ; Start 05/21/17 at 13:00 Phenylephrine HCl 40 mg/Dextrose 500 ml @ 75 mls/hr TITRATE IV ; Start at 05:30 Sodium Chloride (NS) 1,000 ml @ 60 mls/hr [id number] IV Last administered on 10:37; Admin Dose 60 MLS/HR; Start 05/22/17 at 10:30; Stop 05/23/17 at 03:09 Assessment/Plan Chief Complaint/Hosp Course 1. abnormal ECG and intermittent arrhythmia with P afib and NSVT 2. hypotension/ shcok/sepsis./ bacteremia. 3. ESRD ON HD 4. HX CAD, MS 5. HX dementia 6. P afib 7. sick sinus syndrome 8. s/p PPM 9/ encephalopathy 10. hx CVA 11. severe and worsening anemia . 12. Dyslipidemia: on lipitor Recommendations: HD as per renal Pacemaker was interrogated 05.16.17 and personally reviewed. normal pacing function pt has not been anticoagulated due to concerns about anemia, fall and bleeding. Resume low dose betablocker once BP remains stable enough to tolerate it. however currently still severely hypotensive. cont ASA cont lipitor replace lytes prn wean off neosynephrine drip once BP improves. cont ICU care for now. Thank you for his referral. I will continue to follow along with you. MELVIN BRODERICK MD [facility] Problems: MELVIN BRODERICK MD May 22, 2017 14:36
--- NOTE | 2017-05-22 14:42 | PN ---
DATE: 05/22/2017 SUBJECTIVE: Patient is lethargic, looks comfortable, no fevers. VITAL SIGNS: Temperature 97, pulse 89, respirations 17, blood pressure 93/47, saturation 100 on seema al cannula. WBC 10.3, H and H 9 and 28.6, platelets 133. INDWELLINGS: Right IJ PermCath and NG tube. ANTIMICROBIALS: The patient is on: 1. IV vancomycin. 2. Cefepime. DIAGNOSTIC DATA: Chest x-ray from yesterday revealed bilateral airspace and interstitial disease. PHYSICAL EXAMINATION: GENERAL: This is a chronically ill-appearing, cachectic elderly man in no distress. HEENT: Head atraumatic, normocephalic. Sclerae anicteric. Buccal mucosa dry. NECK: Supple. CHEST: Rise symmetrical. Breath sounds diminished to bases. HEART: S1, S2. ABDOMEN: Soft, bowel tones present. EXTREMITIES: No cyanosis. ASSESSMENT: 1. Sepsis, status post shock. 2. Enterococcal bacteremia. Etiology could be secondary to line versus pulmonary source. 4. Healthcare-associated pneumonia, rule out aspiration event. 5. Coronary artery disease, history of permanent pacemaker. 6. End-stage renal disease, hemodialysis dependent. 7. Failure to thrive. PLAN: The patient remains stable off pressors. Repeat blood cultures negative. He is being seen b y multiple consultants. 2D echocardiogram revealed no vegetations. Continue anti-aspiration measur es. The patient is chemical code. Dictated By: JACK CHAN SUPPLY AND DISTRIBUTION MANAGER for ZUHAIR CLINE/DARON Conf#: [id number] DID#: [id number]
--- NOTE | 2017-05-22 14:42 | PN ---
DATE: 05/22/2017 SUBJECTIVE: Patient is lethargic, looks comfortable, no fevers. VITAL SIGNS: Temperature 97, pulse 89, respirations 17, blood pressure 93/47, saturation 100 on seema al cannula. WBC 10.3, H and H 9 and 28.6, platelets 133. INDWELLINGS: Right IJ PermCath and NG tube. ANTIMICROBIALS: The patient is on: 1. IV vancomycin. 2. Cefepime. DIAGNOSTIC DATA: Chest x-ray from yesterday revealed bilateral airspace and interstitial disease. PHYSICAL EXAMINATION: GENERAL: This is a chronically ill-appearing, cachectic elderly man in no distress. HEENT: Head atraumatic, normocephalic. Sclerae anicteric. Buccal mucosa dry. NECK: Supple. CHEST: Rise symmetrical. Breath sounds diminished to bases. HEART: S1, S2. ABDOMEN: Soft, bowel tones present. EXTREMITIES: No cyanosis. ASSESSMENT: 1. Sepsis, status post shock. 2. Enterococcal bacteremia. Etiology could be secondary to line versus pulmonary source. 4. Healthcare-associated pneumonia, rule out aspiration event. 5. Coronary artery disease, history of permanent pacemaker. 6. End-stage renal disease, hemodialysis dependent. 7. Failure to thrive. PLAN: The patient remains stable off pressors. Repeat blood cultures negative. He is being seen b y multiple consultants. 2D echocardiogram revealed no vegetations. Continue anti-aspiration measur es. The patient is chemical code. Dictated By: JACK CHAN FLIGHT SECURITY SPECIALIST for ZUHAIR CLINE/DARON Conf#: [id number] DID#: [id number]
--- NOTE | 2017-05-22 14:42 | PN ---
DATE: 05/22/2017 SUBJECTIVE: Patient is lethargic, looks comfortable, no fevers. VITAL SIGNS: Temperature 97, pulse 89, respirations 17, blood pressure 93/47, saturation 100 on seema al cannula. WBC 10.3, H and H 9 and 28.6, platelets 133. INDWELLINGS: Right IJ PermCath and NG tube. ANTIMICROBIALS: The patient is on: 1. IV vancomycin. 2. Cefepime. DIAGNOSTIC DATA: Chest x-ray from yesterday revealed bilateral airspace and interstitial disease. PHYSICAL EXAMINATION: GENERAL: This is a chronically ill-appearing, cachectic elderly man in no distress. HEENT: Head atraumatic, normocephalic. Sclerae anicteric. Buccal mucosa dry. NECK: Supple. CHEST: Rise symmetrical. Breath sounds diminished to bases. HEART: S1, S2. ABDOMEN: Soft, bowel tones present. EXTREMITIES: No cyanosis. ASSESSMENT: 1. Sepsis, status post shock. 2. Enterococcal bacteremia. Etiology could be secondary to line versus pulmonary source. 4. Healthcare-associated pneumonia, rule out aspiration event. 5. Coronary artery disease, history of permanent pacemaker. 6. End-stage renal disease, hemodialysis dependent. 7. Failure to thrive. PLAN: The patient remains stable off pressors. Repeat blood cultures negative. He is being seen b y multiple consultants. 2D echocardiogram revealed no vegetations. Continue anti-aspiration measur es. The patient is chemical code. Dictated By: JACK CHAN EX ASSISTANT/PROGRAM DIRECTOR for ZUHAIR CLINE/DARON Conf#: [id number] DID#: [id number]
[2017-05-22] MEDS: PHENYLephrine 40 MG in DEXTROSE 5% 496 ML IV SCH (15:13)
--- NOTE | 2017-05-22 18:05 | PN ---
Date/Time of Note Date/Time of Note DATE: 05/22/17 TIME: 18:02 Assessment/Plan VTE Prophylaxis VTE Prophylaxis Intervention: SCD's Assessment/Plan Chief Complaint/Hosp Course Assessment/Plan 1. Septic shock secondary to bacteremia vs pneumonia - Patient was transferred to ICU for pressor support , off pressors for short time, back on pressors, titrate off as possible - Patient had +blood cultures for enterococcus - ID consultation placed and will discuss if believe permacath source of infection and needing to be removed? - ECHO ordered to rule out endocarditis - Repeat blood cultures ordered as well - On Vancomycin, cefepime 2. Hyponatremia - Will continue to monitor - Urine studies not possible 2/2 no urine production -? volume overload/renal failure/HD -starting tube feeds with water flush, stopping Iv fluids, monitor 3. Anemia, chronic, CKD related, s/p transfusion - remains stable - Continue to monitor and transfuse if <7 4. ESRD, DD, on HD, electrolyte abnormalities - Nephrology on board and consultation appreciated - Will need to address removal of permacath and placement temporary line for HD if ID suspicious for permacath infection source. - Discussed with son the effects HD has been on his father but still wants to continue. Was asking if can be done twice a week instead and told him to address with his Consumer Experience Consultant. 5. fail to thrive, moderate malnutrition with hypoalbuminemia - Able to take in small amounts of Pureed PO but NPO when not alert -now more alert, speech therapy ordered. may have to consider peg tube in the future. 6. paroxysmal atrial fibrillation, sinus rhythm, on metoprolol, not a candidate for anticoagulant - Cardiology on board and consultation appreciated. HR controlled 7. history of cerebrovascular accident 8. aortic stenosis 9. sick sinus syndrome status post permanent pacemaker - pacer interrogated and shows normal pacing function 10. dyslipidemia, on statin 11. dementia, chronic, stable 12. Disposition - Continue monitoring patient in ICU -if off pressors tomorrow, DG tomorrow. >40 minutes of critical care time spent with patient. Problems: Exam/Review of Systems Vital Signs Vitals Vital Signs Date Time Temp Pulse Resp B/P Pulse Ox O2 Delivery O2 Flow Rate FiO2 05/22/17 17:00 73 16 121/49 100 Nasal Cannula 2.0 05/22/17 16:00 97.9 Intake and Output 05/21/17 05/21/17 05/22/17 15:00 23:00 07:00 Intake Total 580 ml 340 ml 250 ml Output Total 2500 ml 0 ml 0 ml Balance -1920 ml 340 ml 250 ml Exam General: frail appearing, NAD, awake, easily aroused HEENT: Atraumatic, normocephalic. The pupils are equal, round and reactive. Neck: Supple with full range of motion. Lungs: Coarse breath sounds bilaterally, no wheezes Heart: Normal S1-S2, regular rate, irregularly irregular rhythm Abdomen: Soft , nontender, nondistended , bowel sounds are present. No guarding no rebound tenderness Extremities: +pedal edema b/l. Normal to inspection, no cyanosis Neuro: follows minimal command, moves all extremities spontaneously Skin: Sacral skin wound Results Result Diagram: 05/22/1746 05/22/1746 Results 24 hrs Laboratory Tests Test 05/21/17 21:10 05/22/17 01:23 05/22/17 05:15 05/22/17 05:46 Bedside Glucose 115 133 137 White Blood Count 10.3 # Red Blood Count 3.24 L Hemoglobin 9.0 L Hematocrit 28.6 L Mean Corpuscular Volume 88.3 Mean Corpuscular Hemoglobin 27.8 L Mean Corpuscular Hemoglobin Concent 31.5 L Red Cell Distribution Width 18.3 H Platelet Count 133 #L Mean Platelet Volume 11.4 H Neutrophils % 69.0 Lymphocytes % 16.6 Monocytes % 9.5 Eosinophils % 4.0 Basophils % 0.5 Nucleated Red Blood Cells % 0.0 Neutrophils # 7.1 Lymphocytes # 1.7 Monocytes # 1.0 H Eosinophils # 0.4 Basophils # 0.1 Nucleated Red Blood Cells # 0.0 Sodium Level 139 Potassium Level 3.3 #L Chloride Level 102 Carbon Dioxide Level 26 Anion Gap 14 Blood Urea Nitrogen 25 #H Creatinine 4.37 #H Glucose Level 122 Calcium Level 7.8 L Phosphorus Level 3.5 Magnesium Level 2.5 Albumin 2.1 L Thyroid Stimulating Hormone (TSH) 5.850 H Free Thyroxine 2.06 H Random Cortisol 19.9 Test 05/22/17 08:54 05/22/17 14:36 05/22/17 16:44 Bedside Glucose 117 124 136 Medications Medications Current Medications Ondansetron HCl (Zofran Inj) 4 mg Q6H PRN IV NAUSEA AND/OR VOMITING; Start at 21:30 Acetaminophen (Tylenol Tab) 650 mg Q6H PRN PO PAIN LEVEL 1-3 OR FEVER; Start 05/15/17 at 21:30 Docusate Sodium (Colace) 100 mg Q12H PRN PO CONSTIPATION; Start 05/15/17 at 21 :30 Bisacodyl (Dulcolax) 5 mg DAILY PRN PO CONSTIPATION; Start 05/15/17 at 21:30 Famotidine (Pepcid) 20 mg DAILY PO Last administered on 05/22/17 08:50; Admin Dose 20 MG; Start 05/16/17 at 09:00 Aspirin (Halfprin) 81 mg DAILY PO Last administered on 05/20/17 09:46; Admin Dose 81 MG; Start 05/16/17 at 09:00 Atorvastatin Calcium (Lipitor) 20 mg HS PO Last administered on 05/21/17 21: 34; Admin Dose 20 MG; Start 05/16/17 at 21:00 Donepezil HCl (Aricept) 5 mg DAILY PO Last administered on 05/22/17 08:50; Admin Dose 5 MG; Start 05/16/17 at 09:00 Folic Acid (Folic Acid) 1 mg DAILY PO Last administered on 05/22/17 08:50; Admin Dose 1 MG; Start 05/16/17 at 09:00 Loratadine (Claritin) 10 mg DAILY PO Last administered on 05/22/17 08:50; Admin Dose 10 MG; Start 05/16/17 at 09:00 Megestrol Acetate (Megace) 40 mg DAILY PO Last administered on 05/22/17 08:50 ; Admin Dose 40 MG; Start 05/16/17 at 09:00 Diagnostic Test (Pha) (Accu-Chek) 1 ea 02 XX Last administered on 05/22/17 01 :26; Admin Dose 1 EA; Start 05/16/17 at 02:00 Miscellaneous Information 1 ea NOTE XX ; Start 05/15/17 at 22:00 Glucose (Glutose) 15 gm Q15M PRN PO DECREASED GLUCOSE; Start 05/15/17 at 22:00 Glucose (Glutose) 22.5 gm Q15M PRN PO DECREASED GLUCOSE; Start 05/15/17 at 22: 00 Dextrose (D50w Syringe) 25 ml Q15M PRN IV DECREASED GLUCOSE; Start 05/15/17 at 22:00 Dextrose (D50w Syringe) 50 ml Q15M PRN IV DECREASED GLUCOSE; Start 05/15/17 at 22:00 Glucagon (Glucagen) 1 mg Q15M PRN IM DECREASED GLUCOSE; Start 05/15/17 at 22: 00 Glucose 15 gm 15 gm Q15M PRN BUCCAL DECREASED GLUCOSE; Start 05/15/17 at 22:00 Cefepime HCl (Maxipime 1gm/50 ml (Pmx)) 50 ml @ 100 mls/hr DAILY IVPB Last administered on 05/22/17 08:50; Admin Dose 100 MLS/HR; Start 05/16/17 at 09: 00 Sulfacetamide Sodium (Bleph-10 Oph Drop) 1 drop BID BOTH EYES Last administered on 05/22/17 08:50; Admin Dose 1 DROP; Start 05/16/17 at 21:00 Amiodarone HCl (Cordarone) 200 mg DAILY PO Last administered on 05/22/17 08: 53; Admin Dose 200 MG; Start 05/18/17 at 16:00 Collagenase 1 applic 1 applic DAILY TOP Last administered on 05/22/17 08:52; Admin Dose 1 APPLIC; Start 05/18/17 at 21:00 Vancomycin HCl (Vancocin) 250 ml @ 125 mls/hr Q96H IVPB Last administered on 05/20/17 16:58; Admin Dose 125 MLS/HR; Start 05/20/17 at 17:00 Insulin Aspart (Adult SC Insulin - Mild Algorithm)... Q4 SC ; Start 05/21/17 at 13:00 Phenylephrine HCl 40 mg/Dextrose 500 ml @ 75 mls/hr TITRATE IV Last administered on 05/22/17 15:13; Admin Dose 60 MLS/HR; Start 05/22/17 at 05:30 Sodium Chloride (NS) 1,000 ml @ 60 mls/hr [id number] IV Last administered on 10:37; Admin Dose 60 MLS/HR; Start 05/22/17 at 10:30; Stop 05/23/17 at 03:09 TYLER MADDEN May 22, 2017 18:05
--- NOTE | 2017-05-22 19:29 | RADRPT ---
PROCEDURE: XR Chest. CLINICAL INDICATION: Pleural effusion. New right central venous line and nasogastric tube. TECHNIQUE: Single frontal view of the chest. COMPARISON: 07/19/2016. FINDINGS: Nasogastric tube in place with tip and side port in the proximal stomach. Right central venous dialy sis catheter in place with tip in the right atrium superior vena cava junction. Left anterior chest wall cardiac pacer is unchanged. New right PICC line in place with tip in the superior vena cava. New moderate right pleural effusion with at least partial collapse of the right lower lobe. Increase d left pleural effusion, now moderate, with at least partial collapse of the left lower lobe. No osmin dent pneumothorax. The osseous structures and soft tissues are unremarkable. IMPRESSION: 1. New nasogastric tube is seen with tip and side port in the proximal stomach. 2. New right PICC line in place with tip in the superior vena cava. 3. Right central venous dialysis catheter again seen with tip in superior vena cava. 4. New moderate right pleural effusion with at least partial collapse of the right lower lobe. 5. Increased left moderate pleural effusion, with at least partial collapse of the left lower lobe. RPTAT: [facility] Physician Alfonso Date Time Electronically viewed and signed by Physician Alfonso on 05/22/2017 19:29 RS/
[2017-05-22] MEDS: ATORVASTATIN 20 MG TAB PO SCH (21:18)
--- NOTE | 2017-05-22 21:18 | RADRPT ---
PROCEDURE: Ultrasound PICC line placement CLINICAL INDICATION: Ultrasound guidance for PICC line placement TECHNIQUE: Ultrasound guidance was provided for PICC line placement Fluoro time: 0.0 minutes Number of images/sequences: 2 COMPARISON: Chest x-ray of 05/22/2017 FINDINGS: The right PICC line tip is in the superior vena cava on the subsequent chest radiograph. IMPRESSION: Ultrasound guidance provided for PICC line placement. Right PICC line in superior vena cava. Please see procedure report. RPTAT: HJES .Francisco Pina MD, MD Date Time Electronically viewed and signed by .Francisco Pina MD, on 05/22/2017 21:18 .S/
[2017-05-23] VITALS (61 sets, daily range): BP systolic 82–146; BP diastolic 36–126; PULSE 60–113; RESP 13–27
[2017-05-23] MEDS: PHENYLephrine 40 MG in DEXTROSE 5% 496 ML IV SCH (00:08)
[2017-05-23] MEDS: ACCU-CHEK XX SCH (01:20)
[2017-05-23] MEDS: Insulin NOVOLOG SS MILD Algorithm (NPO/TPN/ENTERAL FEEDS) SC SCH ×6 (01:20→21:00)
--- NOTE | 2017-05-23 07:32 | CONS ---
Date/Time of Note Date/Time of Note DATE: 05/23/17 TIME: 07:31 Assessment/Plan Assessment/Plan Chief Complaint/Hosp Course - ESRD ON HEMODIALYSIS - ANEMIA - PNEUMONIA - CAD / CHF - HYPOTENSION - DM - LOW ALBUMIN plan: In ICU Bedside dialysis Hemodynamic support with IV pressors Minimal UF due to low BP H/H stable Will need to talk to family regarding residential plan Problems: Consultation Date/Type/Reason Admit Date/Time May 15, 2017 at 20:02 Initial Consult Date 05/16/17 Type of Consultation: NEPHROLOGY Reason for Consultation ESRD Referring Provider: SUNIL GARCIA 24 HR Interval Summary Subjective hx not possible: pt non-verbal, pt critical status Exam/Review of Systems Vital Signs Vitals Vital Signs Date Time Temp Pulse Resp B/P Pulse Ox O2 Delivery O2 Flow Rate FiO2 05/23/17 06:45 88 17 129/69 100 Nasal Cannula 2.0 05/23/17 04:00 97.1 Intake and Output 05/22/17 05/22/17 05/23/17 15:00 23:00 07:00 Intake Total 1045 ml 1370 ml 875 ml Output Total 0 ml 0 ml 0 ml Balance 1045 ml 1370 ml 875 ml Exam Constitutional: non-verbal Respiratory: crackles/rales Cardiovascular: edema, systolic murmur Results Result Diagram: 05/23/17 0443 05/23/17 0443 Results 24 hrs Laboratory Tests Test 05/22/17 08:54 05/22/17 14:36 05/22/17 16:44 05/22/17 21:19 Bedside Glucose 117 124 136 127 Test 05/23/17 01:17 05/23/17 04:43 05/23/17 05:27 Bedside Glucose 141 95 White Blood Count 12.0 H Red Blood Count 2.69 L Hemoglobin 7.1 #L Hematocrit 23.6 L Mean Corpuscular Volume 87.7 Mean Corpuscular Hemoglobin 26.4 L Mean Corpuscular Hemoglobin Concent 30.1 L Red Cell Distribution Width 18.9 H Platelet Count 116 L Mean Platelet Volume 10.9 H Neutrophils % 70.0 Lymphocytes % 13.7 L Monocytes % 10.7 Eosinophils % 4.9 Basophils % 0.2 Nucleated Red Blood Cells % 0.0 Neutrophils # 8.4 H Lymphocytes # 1.7 Monocytes # 1.3 H Eosinophils # 0.6 H Basophils # 0.0 Nucleated Red Blood Cells # 0.0 Sodium Level 138 Potassium Level 3.8 Chloride Level 104 Carbon Dioxide Level 25 Anion Gap 13 Blood Urea Nitrogen 34 H Creatinine 4.87 H Glucose Level 103 Calcium Level 7.4 L Phosphorus Level 3.2 Magnesium Level 2.3 Medications Medications Current Medications Ondansetron HCl (Zofran Inj) 4 mg Q6H PRN IV NAUSEA AND/OR VOMITING; Start at 21:30 Acetaminophen (Tylenol Tab) 650 mg Q6H PRN PO PAIN LEVEL 1-3 OR FEVER; Start 05/15/17 at 21:30 Docusate Sodium (Colace) 100 mg Q12H PRN PO CONSTIPATION; Start 05/15/17 at 21 :30 Bisacodyl (Dulcolax) 5 mg DAILY PRN PO CONSTIPATION; Start 05/15/17 at 21:30 Famotidine (Pepcid) 20 mg DAILY PO Last administered on 05/22/17 08:50; Admin Dose 20 MG; Start 05/16/17 at 09:00 Aspirin (Halfprin) 81 mg DAILY PO Last administered on 05/20/17 09:46; Admin Dose 81 MG; Start 05/16/17 at 09:00 Atorvastatin Calcium (Lipitor) 20 mg HS PO Last administered on 05/22/17 21: 18; Admin Dose 20 MG; Start 05/16/17 at 21:00 Donepezil HCl (Aricept) 5 mg DAILY PO Last administered on 05/22/17 08:50; Admin Dose 5 MG; Start 05/16/17 at 09:00 Folic Acid (Folic Acid) 1 mg DAILY PO Last administered on 05/22/17 08:50; Admin Dose 1 MG; Start 05/16/17 at 09:00 Loratadine (Claritin) 10 mg DAILY PO Last administered on 05/22/17 08:50; Admin Dose 10 MG; Start 05/16/17 at 09:00 Megestrol Acetate (Megace) 40 mg DAILY PO Last administered on 05/22/17 08:50 ; Admin Dose 40 MG; Start 05/16/17 at 09:00 Diagnostic Test (Pha) (Accu-Chek) 1 ea 02 XX Last administered on 05/23/17 01 :20; Admin Dose 1 EA; Start 05/16/17 at 02:00 Miscellaneous Information 1 ea NOTE XX ; Start 05/15/17 at 22:00 Glucose (Glutose) 15 gm Q15M PRN PO DECREASED GLUCOSE; Start 05/15/17 at 22:00 Glucose (Glutose) 22.5 gm Q15M PRN PO DECREASED GLUCOSE; Start 05/15/17 at 22: 00 Dextrose (D50w Syringe) 25 ml Q15M PRN IV DECREASED GLUCOSE; Start 05/15/17 at 22:00 Dextrose (D50w Syringe) 50 ml Q15M PRN IV DECREASED GLUCOSE; Start 05/15/17 at 22:00 Glucagon (Glucagen) 1 mg Q15M PRN IM DECREASED GLUCOSE; Start 05/15/17 at 22: 00 Glucose 15 gm 15 gm Q15M PRN BUCCAL DECREASED GLUCOSE; Start 05/15/17 at 22:00 Cefepime HCl (Maxipime 1gm/50 ml (Pmx)) 50 ml @ 100 mls/hr DAILY IVPB Last administered on 05/22/17 08:50; Admin Dose 100 MLS/HR; Start 05/16/17 at 09: 00 Sulfacetamide Sodium (Bleph-10 Oph Drop) 1 drop BID BOTH EYES Last administered on 05/22/17 21:16; Admin Dose 1 DROP; Start 05/16/17 at 21:00 Amiodarone HCl (Cordarone) 200 mg DAILY PO Last administered on 05/22/17 08: 53; Admin Dose 200 MG; Start 05/18/17 at 16:00 Collagenase 1 applic 1 applic DAILY TOP Last administered on 05/22/17 08:52; Admin Dose 1 APPLIC; Start 05/18/17 at 21:00 Vancomycin HCl (Vancocin) 250 ml @ 125 mls/hr Q96H IVPB Last administered on 05/20/17 16:58; Admin Dose 125 MLS/HR; Start 05/20/17 at 17:00 Insulin Aspart (Adult SC Insulin - Mild Algorithm)... Q4 SC Last administered on 05/23/17 01:20; Admin Dose 1 UNIT; Start 05/21/17 at 13:00 Phenylephrine HCl/ Dextrose (Sidney-Syneph/D5W) 500 ml @ 75 mls/hr TITRATE IV Last administered on 05/23/17 00:08; Admin Dose 60 MLS/HR; Start 05/22/17 at 05:30 DENVER ANTONY MD May 23, 2017 07:32
--- NOTE | 2017-05-23 07:35 | CONS ---
Date/Time of Note Date/Time of Note DATE: 05/23/17 TIME: 07:31 Consultation Date/Type/Reason Admit Date/Time May 15, 2017 at 20:02 Type of Consultation: Palliative care Hx of Present Illness Chart reviewed and I am in the process of trying to set up a family conference. Patient admitted with septic shock from pneumonia bacteremia altered mental status with a baseline history of dementia. Currently in the intensive care unit on pressor support, fluid and electrolyte abnormalities aggressive intervention with broad-spectrum IV antibiotic coverage and not appearing to have a favorable prognosis. Patient has a history of end-stage renal disease on hemodialysis. I will try and set up a family conference today if unsuccessful no later than tomorrow. Constitutional: disoriented Eyes: no complaints ENT: no complaints Psychological: confusion Past Medical History Medical History: congestive heart failure, coronary artery disease, diabetes, GI bleed Past Surgical History Past Surgical Hx: other Social History Alcohol Use: none Smoking Status: Unknown if ever smoked Drug Use: none Exam/Review of Systems Vital Signs Vitals Vital Signs Date Time Temp Pulse Resp B/P Pulse Ox O2 Delivery O2 Flow Rate FiO2 05/23/17 06:45 88 17 129/69 100 Nasal Cannula 2.0 05/23/17 04:00 97.1 Intake and Output 05/22/17 05/22/17 05/23/17 14:59 22:59 06:59 Intake Total 1000 ml 1310 ml 1025 ml Output Total 0 ml 0 ml 0 ml Balance 1000 ml 1310 ml 1025 ml Results Result Diagram: 05/23/17 0443 05/23/17 0443 Results 24 hrs Laboratory Tests Test 05/22/17 08:54 05/22/17 14:36 05/22/17 16:44 05/22/17 21:19 Bedside Glucose 117 124 136 127 Test 05/23/17 01:17 05/23/17 04:43 05/23/17 05:27 Bedside Glucose 141 95 White Blood Count 12.0 H Red Blood Count 2.69 L Hemoglobin 7.1 #L Hematocrit 23.6 L Mean Corpuscular Volume 87.7 Mean Corpuscular Hemoglobin 26.4 L Mean Corpuscular Hemoglobin Concent 30.1 L Red Cell Distribution Width 18.9 H Platelet Count 116 L Mean Platelet Volume 10.9 H Neutrophils % 70.0 Lymphocytes % 13.7 L Monocytes % 10.7 Eosinophils % 4.9 Basophils % 0.2 Nucleated Red Blood Cells % 0.0 Neutrophils # 8.4 H Lymphocytes # 1.7 Monocytes # 1.3 H Eosinophils # 0.6 H Basophils # 0.0 Nucleated Red Blood Cells # 0.0 Sodium Level 138 Potassium Level 3.8 Chloride Level 104 Carbon Dioxide Level 25 Anion Gap 13 Blood Urea Nitrogen 34 H Creatinine 4.87 H Glucose Level 103 Calcium Level 7.4 L Phosphorus Level 3.2 Magnesium Level 2.3 Medications Medications Current Medications Ondansetron HCl (Zofran Inj) 4 mg Q6H PRN IV NAUSEA AND/OR VOMITING; Start at 21:30 Acetaminophen (Tylenol Tab) 650 mg Q6H PRN PO PAIN LEVEL 1-3 OR FEVER; Start 05/15/17 at 21:30 Docusate Sodium (Colace) 100 mg Q12H PRN PO CONSTIPATION; Start 05/15/17 at 21 :30 Bisacodyl (Dulcolax) 5 mg DAILY PRN PO CONSTIPATION; Start 05/15/17 at 21:30 Famotidine (Pepcid) 20 mg DAILY PO Last administered on 05/22/17 08:50; Admin Dose 20 MG; Start 05/16/17 at 09:00 Aspirin (Halfprin) 81 mg DAILY PO Last administered on 05/20/17 09:46; Admin Dose 81 MG; Start 05/16/17 at 09:00 Atorvastatin Calcium (Lipitor) 20 mg HS PO Last administered on 05/22/17 21: 18; Admin Dose 20 MG; Start 05/16/17 at 21:00 Donepezil HCl (Aricept) 5 mg DAILY PO Last administered on 05/22/17 08:50; Admin Dose 5 MG; Start 05/16/17 at 09:00 Folic Acid (Folic Acid) 1 mg DAILY PO Last administered on 05/22/17 08:50; Admin Dose 1 MG; Start 05/16/17 at 09:00 Loratadine (Claritin) 10 mg DAILY PO Last administered on 05/22/17 08:50; Admin Dose 10 MG; Start 05/16/17 at 09:00 Megestrol Acetate (Megace) 40 mg DAILY PO Last administered on 05/22/17 08:50 ; Admin Dose 40 MG; Start 05/16/17 at 09:00 Diagnostic Test (Pha) (Accu-Chek) 1 ea 02 XX Last administered on 05/23/17 01 :20; Admin Dose 1 EA; Start 05/16/17 at 02:00 Miscellaneous Information 1 ea NOTE XX ; Start 05/15/17 at 22:00 Glucose (Glutose) 15 gm Q15M PRN PO DECREASED GLUCOSE; Start 05/15/17 at 22:00 Glucose (Glutose) 22.5 gm Q15M PRN PO DECREASED GLUCOSE; Start 05/15/17 at 22: 00 Dextrose (D50w Syringe) 25 ml Q15M PRN IV DECREASED GLUCOSE; Start 05/15/17 at 22:00 Dextrose (D50w Syringe) 50 ml Q15M PRN IV DECREASED GLUCOSE; Start 05/15/17 at 22:00 Glucagon (Glucagen) 1 mg Q15M PRN IM DECREASED GLUCOSE; Start 05/15/17 at 22: 00 Glucose 15 gm 15 gm Q15M PRN BUCCAL DECREASED GLUCOSE; Start 05/15/17 at 22:00 Cefepime HCl (Maxipime 1gm/50 ml (Pmx)) 50 ml @ 100 mls/hr DAILY IVPB Last administered on 05/22/17 08:50; Admin Dose 100 MLS/HR; Start 05/16/17 at 09: 00 Sulfacetamide Sodium (Bleph-10 Oph Drop) 1 drop BID BOTH EYES Last administered on 05/22/17 21:16; Admin Dose 1 DROP; Start 05/16/17 at 21:00 Amiodarone HCl (Cordarone) 200 mg DAILY PO Last administered on 05/22/17 08: 53; Admin Dose 200 MG; Start 05/18/17 at 16:00 Collagenase 1 applic 1 applic DAILY TOP Last administered on 05/22/17 08:52; Admin Dose 1 APPLIC; Start 05/18/17 at 21:00 Vancomycin HCl (Vancocin) 250 ml @ 125 mls/hr Q96H IVPB Last administered on 05/20/17 16:58; Admin Dose 125 MLS/HR; Start 05/20/17 at 17:00 Insulin Aspart (Adult SC Insulin - Mild Algorithm)... Q4 SC Last administered on 05/23/17 01:20; Admin Dose 1 UNIT; Start 05/21/17 at 13:00 Phenylephrine HCl/ Dextrose (Sidney-Syneph/D5W) 500 ml @ 75 mls/hr TITRATE IV Last administered on 05/23/17t 00:08; Admin Dose 60 MLS/HR; Start 05/22/17 at 05:30 KAREN ORDONEZ May 23, 2017 07:35
--- NOTE | 2017-05-23 08:19 | CONS ---
Date/Time of Note Date/Time of Note DATE: 05/23/17 TIME: 08:17 Consult Date/Type/Reason Admit Date/Time May 15, 2017 at 20:02 Initial Consult Date 05/16/17 Type of Consultation: cardiology Ordering Provider: SUNIL GARCIA Subjective CARD F/U: S: D/W STAFF AND rhythm was reviewed. pt remains in mostly paced rhythm pt is still in ICU. pt remains on neosynerphrine drip due to hypotension . remains nonverbal and does not answer my questions. on HD now. 0: General: thin man. no acute distress HEENT: NC/AT. pupils are equal. round. s/p NG tube in place. NECK: . no stridor. CV: RRR systolic murmur; no gallop or rubs. PULM: no wheezing. + mild rhonchi. GI: SOFT, NT, ND, no rebound or guarding Extremity: trace B/L LE edema. no clubbing. neuro: awake but does not answer my questions. Psych: appears anxious rectal: deferred chest: s/p R HD access in place. ECG NSR. ECHO reviewed recently: 1. Normal left ventricular systolic function. Normal left ventricular cavity size. Left ventricle not well visualized. Moderate concentric left ventricular hypertrophy. Ejection fraction is visually estimated at 60 %. Abnormal Diastolic Function. 2. Mitral valve is not well visualized. Mild mitral leaflet calcification. Mild mitral annular calcification. Trace mitral regurgitation. 3. Aortic valve not well visualized. Moderate aortic stenosis. Aortic valve Max velocity 2.90 m/sec. Max PG 34.00 mmHg. Mean PG 18.00 mmHg. Aortic cusps appear moderately calcified. 4. Normal appearance of the tricuspid valve. Tricuspid valve not well visualized. Estimated peak PA systolic pressure 29 mmHg. There is mild tricuspid regurgitation. 5. very suboptimal study. Objective Vital Signs Date Time Temp Pulse Resp B/P Pulse Ox O2 Delivery O2 Flow Rate FiO2 05/23/17 07:15 89 16 95/40 100 Nasal Cannula 2.0 05/23/17 04:00 97.1 Intake and Output 05/22/17 05/22/17 05/23/17 15:00 23:00 07:00 Intake Total 1045 ml 1370 ml 875 ml Output Total 0 ml 0 ml 0 ml Balance 1045 ml 1370 ml 875 ml Results/Medications Result Diagram: 05/23/17 0443 05/23/17 0443 Results 24 hrs Laboratory Tests Test 05/22/17 08:54 05/22/17 14:36 05/22/17 16:44 05/22/17 21:19 Bedside Glucose 117 124 136 127 Test 05/23/17 01:17 05/23/17 04:43 05/23/17 05:27 Bedside Glucose 141 95 White Blood Count 12.0 H Red Blood Count 2.69 L Hemoglobin 7.1 #L Hematocrit 23.6 L Mean Corpuscular Volume 87.7 Mean Corpuscular Hemoglobin 26.4 L Mean Corpuscular Hemoglobin Concent 30.1 L Red Cell Distribution Width 18.9 H Platelet Count 116 L Mean Platelet Volume 10.9 H Neutrophils % 70.0 Lymphocytes % 13.7 L Monocytes % 10.7 Eosinophils % 4.9 Basophils % 0.2 Nucleated Red Blood Cells % 0.0 Neutrophils # 8.4 H Lymphocytes # 1.7 Monocytes # 1.3 H Eosinophils # 0.6 H Basophils # 0.0 Nucleated Red Blood Cells # 0.0 Sodium Level 138 Potassium Level 3.8 Chloride Level 104 Carbon Dioxide Level 25 Anion Gap 13 Blood Urea Nitrogen 34 H Creatinine 4.87 H Glucose Level 103 Calcium Level 7.4 L Phosphorus Level 3.2 Magnesium Level 2.3 Medications Current Medications Ondansetron HCl (Zofran Inj) 4 mg Q6H PRN IV NAUSEA AND/OR VOMITING; Start at 21:30 Acetaminophen (Tylenol Tab) 650 mg Q6H PRN PO PAIN LEVEL 1-3 OR FEVER; Start 05/15/17 at 21:30 Docusate Sodium (Colace) 100 mg Q12H PRN PO CONSTIPATION; Start 05/15/17 at 21 :30 Bisacodyl (Dulcolax) 5 mg DAILY PRN PO CONSTIPATION; Start 05/15/17 at 21:30 Famotidine (Pepcid) 20 mg DAILY PO Last administered on 05/22/17 08:50; Admin Dose 20 MG; Start 05/16/17 at 09:00 Aspirin (Halfprin) 81 mg DAILY PO Last administered on 05/20/17 09:46; Admin Dose 81 MG; Start 05/16/17 at 09:00 Atorvastatin Calcium (Lipitor) 20 mg HS PO Last administered on 05/22/17 21: 18; Admin Dose 20 MG; Start 05/16/17 at 21:00 Donepezil HCl (Aricept) 5 mg DAILY PO Last administered on 05/22/17 08:50; Admin Dose 5 MG; Start 05/16/17 at 09:00 Folic Acid (Folic Acid) 1 mg DAILY PO Last administered on 05/22/17 08:50; Admin Dose 1 MG; Start 05/16/17 at 09:00 Loratadine (Claritin) 10 mg DAILY PO Last administered on 05/22/17 08:50; Admin Dose 10 MG; Start 05/16/17 at 09:00 Megestrol Acetate (Megace) 40 mg DAILY PO Last administered on 05/22/17 08:50 ; Admin Dose 40 MG; Start 05/16/17 at 09:00 Diagnostic Test (Pha) (Accu-Chek) 1 ea 02 XX Last administered on 05/23/17 01 :20; Admin Dose 1 EA; Start 05/16/17 at 02:00 Miscellaneous Information 1 ea NOTE XX ; Start 05/15/17 at 22:00 Glucose (Glutose) 15 gm Q15M PRN PO DECREASED GLUCOSE; Start 05/15/17 at 22:00 Glucose (Glutose) 22.5 gm Q15M PRN PO DECREASED GLUCOSE; Start 05/15/17 at 22: 00 Dextrose (D50w Syringe) 25 ml Q15M PRN IV DECREASED GLUCOSE; Start 05/15/17 at 22:00 Dextrose (D50w Syringe) 50 ml Q15M PRN IV DECREASED GLUCOSE; Start 05/15/17 at 22:00 Glucagon (Glucagen) 1 mg Q15M PRN IM DECREASED GLUCOSE; Start 05/15/17 at 22: 00 Glucose 15 gm 15 gm Q15M PRN BUCCAL DECREASED GLUCOSE; Start 05/15/17 at 22:00 Cefepime HCl (Maxipime 1gm/50 ml (Pmx)) 50 ml @ 100 mls/hr DAILY IVPB Last administered on 05/22/17 08:50; Admin Dose 100 MLS/HR; Start 05/16/17 at 09: 00 Sulfacetamide Sodium (Bleph-10 Oph Drop) 1 drop BID BOTH EYES Last administered on 05/22/17 21:16; Admin Dose 1 DROP; Start 05/16/17 at 21:00 Amiodarone HCl (Cordarone) 200 mg DAILY PO Last administered on 05/22/17 08: 53; Admin Dose 200 MG; Start 05/18/17 at 16:00 Collagenase 1 applic 1 applic DAILY TOP Last administered on 05/22/17 08:52; Admin Dose 1 APPLIC; Start 05/18/17 at 21:00 Vancomycin HCl (Vancocin) 250 ml @ 125 mls/hr Q96H IVPB Last administered on 05/20/17 16:58; Admin Dose 125 MLS/HR; Start 05/20/17 at 17:00 Insulin Aspart (Adult SC Insulin - Mild Algorithm)... Q4 SC Last administered on 05/23/17 01:20; Admin Dose 1 UNIT; Start 05/21/17 at 13:00 Phenylephrine HCl/ Dextrose (Sidney-Syneph/D5W) 500 ml @ 75 mls/hr TITRATE IV Last administered on 05/23/17 00:08; Admin Dose 60 MLS/HR; Start 05/22/17 at 05:30 Assessment/Plan Chief Complaint/Hosp Course 1. abnormal ECG and intermittent arrhythmia with P afib and NSVT 2. hypotension/ shcok/sepsis./ bacteremia. 3. ESRD ON HD 4. HX CAD, AR 5. HX dementia 6. P afib 7. sick sinus syndrome 8. s/p PPM 9/ encephalopathy 10. hx CVA 11. severe and worsening anemia . 12. Dyslipidemia: on lipitor 13. severe anemia, Recommendations: HD as per renal Pacemaker was interrogated 05.16.17 and personally reviewed. normal pacing function pt has not been anticoagulated due to concerns about anemia, fall and bleeding. unable to tolerate betablocker so far due to hypotension. cont ASA cont lipitor replace lytes prn wean off neosynephrine drip once BP improves. transfusion prn abx as per ID REC Consider removing of HD access which could be the source of bacteremia. will defer to ID rec. cont ICU care for now. Thank you for his referral. I will continue to follow along with you. MELVIN BRODERICK MD [facility] Problems: MELVIN BRODERICK MD May 23, 2017 08:19
[2017-05-23] MEDS: ASPIRIN (EC) 81 MG TAB PO SCH (09:17)
[2017-05-23] MEDS: FAMOTIDINE 20 MG TAB PO SCH (09:17)
[2017-05-23] MEDS: FOLIC ACID 1 MG TAB PO SCH (09:17)
[2017-05-23] MEDS: CEFEPIME 1GM/50 ML (PMX) 50 ML IVPB SCH (09:17)
[2017-05-23] MEDS: AMIODARONE 200 MG TAB PO SCH (09:17)
[2017-05-23] MEDS: LORATADINE 10 MG TAB PO SCH (09:18)
[2017-05-23] MEDS: DONEPEZIL 5 MG TAB PO SCH (09:18)
[2017-05-23] MEDS: BALSAM PERU/CASTOR OIL 60 GM TUBE TOP SCH ×2 (09:25→20:56)
[2017-05-23] MEDS: COLLAGENASE 30 GM TUBE TOP SCH (09:25)
[2017-05-23] MEDS: SULFACETAMIDE 10% 15 ML OPH BOTH EYES SCH ×2 (09:26→20:55)
[2017-05-23] MEDS: MEGESTROL 40 MG TAB PO SCH (12:48)
[2017-05-23] MEDS: SOD CHLORIDE 0.45% 1,000 ML IV SCH (12:49)
--- NOTE | 2017-05-23 13:33 | CONS ---
Date/Time of Note Date/Time of Note DATE: 05/23/17 TIME: 13:30 Consult Date/Type/Reason Admit Date/Time May 15, 2017 at 20:02 Initial Consult Date 05/16/17 Type of Consultation: id Ordering Provider: SUNIL GARCIA Objective Vital Signs Date Time Temp Pulse Resp B/P Pulse Ox O2 Delivery O2 Flow Rate FiO2 05/23/17 13:00 63 15 93/41 100 Nasal Cannula 2.0 05/23/17 08:00 96.9 Intake and Output 05/22/17 05/22/17 05/23/17 15:00 23:00 07:00 Intake Total 1045 ml 1370 ml 935 ml Output Total 0 ml 0 ml 0 ml Balance 1045 ml 1370 ml 935 ml Results/Medications Result Diagram: 05/23/17 0443 05/23/17 0443 Results 24 hrs Laboratory Tests Test 05/22/17 14:36 05/22/17 16:44 05/22/17 21:19 05/23/17 01:17 Bedside Glucose 124 136 127 141 Test 05/23/17 04:43 05/23/17 05:27 05/23/17 09:24 05/23/17 12:53 White Blood Count 12.0 H Red Blood Count 2.69 L Hemoglobin 7.1 #L Hematocrit 23.6 L Mean Corpuscular Volume 87.7 Mean Corpuscular Hemoglobin 26.4 L Mean Corpuscular Hemoglobin Concent 30.1 L Red Cell Distribution Width 18.9 H Platelet Count 116 L Mean Platelet Volume 10.9 H Neutrophils % 70.0 Lymphocytes % 13.7 L Monocytes % 10.7 Eosinophils % 4.9 Basophils % 0.2 Nucleated Red Blood Cells % 0.0 Neutrophils # 8.4 H Lymphocytes # 1.7 Monocytes # 1.3 H Eosinophils # 0.6 H Basophils # 0.0 Nucleated Red Blood Cells # 0.0 Sodium Level 138 Potassium Level 3.8 Chloride Level 104 Carbon Dioxide Level 25 Anion Gap 13 Blood Urea Nitrogen 34 H Creatinine 4.87 H Glucose Level 103 Calcium Level 7.4 L Phosphorus Level 3.2 Magnesium Level 2.3 Bedside Glucose 95 118 122 Medications Current Medications Ondansetron HCl (Zofran Inj) 4 mg Q6H PRN IV NAUSEA AND/OR VOMITING; Start at 21:30 Acetaminophen (Tylenol Tab) 650 mg Q6H PRN PO PAIN LEVEL 1-3 OR FEVER; Start 05/15/17 at 21:30 Docusate Sodium (Colace) 100 mg Q12H PRN PO CONSTIPATION; Start 05/15/17 at 21 :30 Bisacodyl (Dulcolax) 5 mg DAILY PRN PO CONSTIPATION; Start 05/15/17 at 21:30 Famotidine (Pepcid) 20 mg DAILY PO Last administered on 05/23/17 09:17; Admin Dose 20 MG; Start 05/16/17 at 09:00 Aspirin (Halfprin) 81 mg DAILY PO Last administered on 05/23/17 09:17; Admin Dose 81 MG; Start 05/16/17 at 09:00 Atorvastatin Calcium (Lipitor) 20 mg HS PO Last administered on 05/22/17 21: 18; Admin Dose 20 MG; Start 05/16/17 at 21:00 Donepezil HCl (Aricept) 5 mg DAILY PO Last administered on 05/23/17 09:18; Admin Dose 5 MG; Start 05/16/17 at 09:00 Folic Acid (Folic Acid) 1 mg DAILY PO Last administered on 05/23/17 09:17; Admin Dose 1 MG; Start 05/16/17 at 09:00 Loratadine (Claritin) 10 mg DAILY PO Last administered on 05/23/17 09:18; Admin Dose 10 MG; Start 05/16/17 at 09:00 Megestrol Acetate (Megace) 40 mg DAILY PO Last administered on 05/23/17 12:48 ; Admin Dose 40 MG; Start 05/16/17 at 09:00 Diagnostic Test (Pha) (Accu-Chek) 1 ea 02 XX Last administered on 05/23/17 01 :20; Admin Dose 1 EA; Start 05/16/17 at 02:00 Miscellaneous Information 1 ea NOTE XX ; Start 05/15/17 at 22:00 Glucose (Glutose) 15 gm Q15M PRN PO DECREASED GLUCOSE; Start 05/15/17 at 22:00 Glucose (Glutose) 22.5 gm Q15M PRN PO DECREASED GLUCOSE; Start 05/15/17 at 22: 00 Dextrose (D50w Syringe) 25 ml Q15M PRN IV DECREASED GLUCOSE; Start 05/15/17 at 22:00 Dextrose (D50w Syringe) 50 ml Q15M PRN IV DECREASED GLUCOSE; Start 05/15/17 at 22:00 Glucagon (Glucagen) 1 mg Q15M PRN IM DECREASED GLUCOSE; Start 05/15/17 at 22: 00 Glucose 15 gm 15 gm Q15M PRN BUCCAL DECREASED GLUCOSE; Start 05/15/17 at 22:00 Cefepime HCl (Maxipime 1gm/50 ml (Pmx)) 50 ml @ 100 mls/hr DAILY IVPB Last administered on 05/23/17 09:17; Admin Dose 100 MLS/HR; Start 05/16/17 at 09: 00 Sulfacetamide Sodium (Bleph-10 Oph Drop) 1 drop BID BOTH EYES Last administered on 05/23/17 09:26; Admin Dose 1 DROP; Start 05/16/17 at 21:00 Amiodarone HCl (Cordarone) 200 mg DAILY PO Last administered on 05/23/17 09: 17; Admin Dose 200 MG; Start 05/18/17 at 16:00 Collagenase 1 applic 1 applic DAILY TOP Last administered on 05/23/17 09:25; Admin Dose 1 APPLIC; Start 05/18/17 at 21:00 Vancomycin HCl (Vancocin) 250 ml @ 125 mls/hr Q96H IVPB Last administered on 05/20/17 16:58; Admin Dose 125 MLS/HR; Start 05/20/17 at 17:00 Insulin Aspart (Adult SC Insulin - Mild Algorithm)... Q4 SC Last administered on 05/23/17 01:20; Admin Dose 1 UNIT; Start 05/21/17 at 13:00 Phenylephrine HCl 40 mg/Dextrose 500 ml @ 75 mls/hr TITRATE IV Last administered on 05/23/17 00:08; Admin Dose 60 MLS/HR; Start 05/22/17 at 05:30 Sodium Chloride (1/2 NS) 1,000 ml @ 50 mls/hr Q20H IV Last administered on 12:49; Admin Dose 50 MLS/HR; Start 05/23/17 at 10:30 Assessment/Plan Chief Complaint/Hosp Course SUBJECTIVE: Lethargic, looks comfortable, started on pressors for BP support. INDWELLINGS: Right IJ PermCath, PICC and NG tube. ANTIMICROBIALS: The patient is on: 1. IV vancomycin. 2. Cefepime. DIAGNOSTIC DATA: Chest x-ray from yesterday revealed bilateral airspace and interstitial disease. PHYSICAL EXAMINATION: GENERAL: This is a chronically ill-appearing, cachectic elderly man in no distress. HEENT: Head atraumatic, normocephalic. Sclerae anicteric. Buccal mucosa dry. NECK: Supple. CHEST: Rise symmetrical. Breath sounds diminished to bases. HEART: S1, S2. ABDOMEN: Soft, bowel tones present. EXTREMITIES: No cyanosis. ASSESSMENT: 1. Sepsis with shock. 2. Enterococcal bacteremia. Etiology could be secondary to line versus pulmonary source. 4. Healthcare-associated pneumonia, rule out aspiration event. 5. Coronary artery disease, history of permanent pacemaker. 6. End-stage renal disease, hemodialysis dependent. 7. Failure to thrive. 8. Acute encephalopathy PLAN: Back on Levophed gtt, will change Cefepime to Merrem, continue Vanco, f/ u cxr, aspiration precautions, pending head CT, prognosis guarded DW staff Problems: JACK CHAN NP May 23, 2017 13:33
--- NOTE | 2017-05-23 15:06 | PN ---
Date/Time of Note Date/Time of Note DATE: 05/23/17 TIME: 15:00 Assessment/Plan VTE Prophylaxis VTE Prophylaxis Intervention: SCD's Lines/Catheters IV Catheter Type (from Nrs): PICC Line Central line still needed: Yes Assessment/Plan Chief Complaint/Hosp Course Assessment/Plan 1. Septic shock secondary to bacteremia vs pneumonia - Patient was transferred to ICU for pressor support , off pressors for short time, back on pressors, titrate off as possible - Patient had +blood cultures for enterococcus - ID consultation placed and will discuss if believe permacath source of infection and needing to be removed, currently blood cultures are negative. - ECHO ordered to rule out endocarditis, no vegetations seen - Repeat blood cultures ordered as well, pending, negative thus far - On Vancomycin, merrem #encephalopathy -Likely baseline, however change since yesterday -this level of dementia/encephalopathy was seen previously a few weeks ago -repeat CT ordered when able 2. Hyponatremia, resolved - Will continue to monitor - Urine studies not possible 2/2 no urine production -? volume overload/renal failure/HD -tube feeds with water flush, Iv fluids, monitor 3. Anemia, chronic, CKD related, s/p transfusion - remains stable - Continue to monitor and transfuse if <7 4. ESRD, DD, on HD, electrolyte abnormalities - Nephrology on board and consultation appreciated - Will need to address removal of permacath and placement temporary line for HD if ID suspicious for permacath infection source. However, currently cultures are negative. - Discussed with son the effects HD has been on his father but still wants to continue. Was asking if can be done twice a week instead and told him to address with his Distribution Supervisor. 5. fail to thrive, moderate malnutrition with hypoalbuminemia - Able to take in small amounts of Pureed PO but NPO when not alert -now more alert, speech therapy ordered. Will have to place PEG tube as patient' s son does not wish to pursue hospice at this time, will consult GI once patient is out of the ICU and stable off pressors, currently has NG tube with tube feeds. 6. paroxysmal atrial fibrillation, sinus rhythm, on metoprolol, not a candidate for anticoagulant - Cardiology on board and consultation appreciated. HR controlled 7. history of cerebrovascular accident 8. aortic stenosis 9. sick sinus syndrome status post permanent pacemaker - pacer interrogated and shows normal pacing function 10. dyslipidemia, on statin 11. dementia, chronic, stable 12. Disposition - Continue monitoring patient in ICU -if off pressors tomorrow, DG tomorrow. >40 minutes of critical care time spent with patient. Problems: Exam/Review of Systems Vital Signs Vitals Vital Signs Date Time Temp Pulse Resp B/P Pulse Ox O2 Delivery O2 Flow Rate FiO2 05/23/17 13:00 63 15 93/41 100 Nasal Cannula 2.0 05/23/17 08:00 96.9 Intake and Output 05/22/17 05/22/17 05/23/17 15:00 23:00 07:00 Intake Total 1045 ml 1370 ml 935 ml Output Total 0 ml 0 ml 0 ml Balance 1045 ml 1370 ml 935 ml Exam General: frail appearing, NAD, lethargic but arousable HEENT: Atraumatic, normocephalic. The pupils are pinpoint. Neck: Supple with full range of motion. Lungs: Coarse breath sounds bilaterally, no wheezes Heart: Normal S1-S2, regular rate, irregularly irregular rhythm Abdomen: Soft , nontender, nondistended , bowel sounds are present. No guarding no rebound tenderness Extremities: +pedal edema b/l. Normal to inspection, no cyanosis Neuro: follows minimal command, moves all extremities spontaneously Skin: Sacral skin wound, multiple other pressure wounds Results Result Diagram: 05/23/173 05/23/17 0443 Results 24 hrs Laboratory Tests Test 05/22/17 16:44 05/22/17 21:19 05/23/17 01:17 05/23/17 04:43 Bedside Glucose 136 127 141 White Blood Count 12.0 H Red Blood Count 2.69 L Hemoglobin 7.1 #L Hematocrit 23.6 L Mean Corpuscular Volume 87.7 Mean Corpuscular Hemoglobin 26.4 L Mean Corpuscular Hemoglobin Concent 30.1 L Red Cell Distribution Width 18.9 H Platelet Count 116 L Mean Platelet Volume 10.9 H Neutrophils % 70.0 Lymphocytes % 13.7 L Monocytes % 10.7 Eosinophils % 4.9 Basophils % 0.2 Nucleated Red Blood Cells % 0.0 Neutrophils # 8.4 H Lymphocytes # 1.7 Monocytes # 1.3 H Eosinophils # 0.6 H Basophils # 0.0 Nucleated Red Blood Cells # 0.0 Sodium Level 138 Potassium Level 3.8 Chloride Level 104 Carbon Dioxide Level 25 Anion Gap 13 Blood Urea Nitrogen 34 H Creatinine 4.87 H Glucose Level 103 Calcium Level 7.4 L Phosphorus Level 3.2 Magnesium Level 2.3 Test 05/23/17 05:27 05/23/17 09:24 05/23/17 12:53 Bedside Glucose 95 118 122 Medications Medications Current Medications Ondansetron HCl (Zofran Inj) 4 mg Q6H PRN IV NAUSEA AND/OR VOMITING; Start at 21:30 Acetaminophen (Tylenol Tab) 650 mg Q6H PRN PO PAIN LEVEL 1-3 OR FEVER; Start 05/15/17 at 21:30 Docusate Sodium (Colace) 100 mg Q12H PRN PO CONSTIPATION; Start 05/15/17 at 21 :30 Bisacodyl (Dulcolax) 5 mg DAILY PRN PO CONSTIPATION; Start 05/15/17 at 21:30 Famotidine (Pepcid) 20 mg DAILY PO Last administered on 05/23/17 09:17; Admin Dose 20 MG; Start 05/16/17 at 09:00 Aspirin (Halfprin) 81 mg DAILY PO Last administered on 05/23/17 09:17; Admin Dose 81 MG; Start 05/16/17 at 09:00 Atorvastatin Calcium (Lipitor) 20 mg HS PO Last administered on 05/22/17 21: 18; Admin Dose 20 MG; Start 05/16/17 at 21:00 Donepezil HCl (Aricept) 5 mg DAILY PO Last administered on 05/23/17 09:18; Admin Dose 5 MG; Start 05/16/17 at 09:00 Folic Acid (Folic Acid) 1 mg DAILY PO Last administered on 05/23/17 09:17; Admin Dose 1 MG; Start 05/16/17 at 09:00 Loratadine (Claritin) 10 mg DAILY PO Last administered on 05/23/17 09:18; Admin Dose 10 MG; Start 05/16/17 at 09:00 Megestrol Acetate (Megace) 40 mg DAILY PO Last administered on 05/23/17 12:48 ; Admin Dose 40 MG; Start 05/16/17 at 09:00 Diagnostic Test (Pha) (Accu-Chek) 1 ea 02 XX Last administered on 05/23/17 01 :20; Admin Dose 1 EA; Start 05/16/17 at 02:00 Miscellaneous Information 1 ea NOTE XX ; Start 05/15/17 at 22:00 Glucose (Glutose) 15 gm Q15M PRN PO DECREASED GLUCOSE; Start 05/15/17 at 22:00 Glucose (Glutose) 22.5 gm Q15M PRN PO DECREASED GLUCOSE; Start 05/15/17 at 22: 00 Dextrose (D50w Syringe) 25 ml Q15M PRN IV DECREASED GLUCOSE; Start 05/15/17 at 22:00 Dextrose (D50w Syringe) 50 ml Q15M PRN IV DECREASED GLUCOSE; Start 05/15/17 at 22:00 Glucagon (Glucagen) 1 mg Q15M PRN IM DECREASED GLUCOSE; Start 05/15/17 at 22: 00 Glucose (Glutose) 15 gm Q15M PRN BUCCAL DECREASED GLUCOSE; Start 05/15/17 at 22:00 Sulfacetamide Sodium (Bleph-10 Oph Drop) 1 drop BID BOTH EYES Last administered on 05/23/17 09:26; Admin Dose 1 DROP; Start 05/16/17 at 21:00 Amiodarone HCl (Cordarone) 200 mg DAILY PO Last administered on 05/23/17 09: 17; Admin Dose 200 MG; Start 05/18/17 at 16:00 Collagenase 1 applic 1 applic DAILY TOP Last administered on 05/23/17 09:25; Admin Dose 1 APPLIC; Start 05/18/17 at 21:00 Vancomycin HCl (Vancocin) 250 ml @ 125 mls/hr Q96H IVPB Last administered on 05/20/17 16:58; Admin Dose 125 MLS/HR; Start 05/20/17 at 17:00 Insulin Aspart (Adult SC Insulin - Mild Algorithm)... Q4 SC Last administered on 05/23/17 01:20; Admin Dose 1 UNIT; Start 05/21/17 at 13:00 Phenylephrine HCl 40 mg/Dextrose 500 ml @ 75 mls/hr TITRATE IV Last administered on 05/23/17 00:08; Admin Dose 60 MLS/HR; Start 05/22/17 at 05:30 Sodium Chloride 1,000 ml @ 50 mls/hr Q20H IV Last administered on 05/23/17 12:49; Admin Dose 50 MLS/HR; Start 05/23/17 at 10:30 Meropenem/Sodium Chloride (Merrem 500mg/50 ml(Pmx)) 50 ml @ 100 mls/hr Q24H IVPB ; Start 05/23/17 at 16:00 TYLER MADDEN May 23, 2017 15:06
--- NOTE | 2017-05-23 15:21 | RADRPT ---
PROCEDURE: CT Brain without contrast. CLINICAL INDICATION: Altered mental status. TECHNIQUE: A CT of the brain without contrast was performed utilizing axial sections from the skul l base through the vertex. The patient was scanned without intravenous contrast enhancement. [place] l and coronal reformatted images were obtained using the data from the axial images. Total exam DLP is 910.69 mGy-cm. CTDIvol is 40.62 mGy. One or more of the following dose reduction techniques were used: Automated exposure control, adjustment of the mA and/or kV according to patient size, use of iterative reconstruction technique. COMPARISON: None available. FINDINGS: There is normal cortez-white matter differentiation. There is marked enlargement of the ventricles and subarachnoid spaces consistent with atrophy. There is decreased attenuation of the periventricular white matter consistent with microangiopathic ischemic change. There is no intracranial hemorrhage or space-occupying lesion. There are vascular calcifications consistent with atherosclerosis. There is no skull fracture or lytic lesion. A nasogastric tube is noted on the left side. IMPRESSION: 1. Marked atrophy. 2. Microangiopathic ischemic change. 3. Atherosclerosis. 4. Left side nasogastric tube. 5. No intracranial hemorrhage. 6. Otherwise unremarkable noncontrast CT scan of the brain. RPTAT: QQ .Luis Cruz MD, MD Date Time Electronically viewed and signed by .Luis Cruz MD, on 05/23/2017 15:20 .R/
[2017-05-23] MEDS ORDERED: MEROPENEM 500MG/50 ML (PMX) 50 ML IVPB SCH (17:00)
[2017-05-23] MEDS: MEROPENEM 500MG/50 ML (PMX) 50 ML IVPB SCH (18:05)
[2017-05-23] MEDS ORDERED: SOD CHLORIDE 0.9% 100 ML ONE (19:18)
[2017-05-23] MEDS: ATORVASTATIN 20 MG TAB PO SCH (20:55)
[2017-05-24] VITALS (53 sets, daily range): BP systolic 72–135; BP diastolic 39–84; PULSE 65–111; RESP 13–30
[2017-05-24] MEDS: Insulin NOVOLOG SS MILD Algorithm (NPO/TPN/ENTERAL FEEDS) SC SCH ×6 (00:37→21:00)
[2017-05-24] MEDS: ACCU-CHEK XX SCH (01:02)
[2017-05-24] MEDS: SOD CHLORIDE 0.45% 1,000 ML IV SCH (03:14)
--- NOTE | 2017-05-24 06:29 | CONS ---
Date/Time of Note Date/Time of Note DATE: 05/24/17 TIME: 06:27 Assessment/Plan Assessment/Plan Chief Complaint/Hosp Course Problems: Consultation Date/Type/Reason Admit Date/Time May 15, 2017 at 20:02 Initial Consult Date 05/16/17 Type of Consultation: Palliative care Reason for Consultation Spoke with patient's son yesterday confirm that he is in agreement with chemical code only. He seems very involved but very realistic insofar as his father's ongoing prognosis. We did not discuss other palliative care issues until family conference is scheduled which will ask case management to arrange as soon as possible. Referring Provider: SUNIL GARCIA Exam/Review of Systems Vital Signs Vitals Vital Signs Date Time Temp Pulse Resp B/P Pulse Ox O2 Delivery O2 Flow Rate FiO2 05/24/17 03:00 66 13 05/24/17 02:00 98/84 05/24/17 01:00 67 05/24/17 00:15 4.0 05/23/17 23:00 Nasal Cannula 05/23/17 20:00 98.2 Intake and Output 05/23/17 05/23/17 05/24/17 15:00 23:00 07:00 Intake Total 1215 ml 410 ml 350 ml Output Total 1400 ml Balance -185 ml 410 ml 350 ml Exam Constitutional: frail Head: atraumatic, normocephalic, No hematomas, No lacerations, No other Respiratory: clear to auscultation, normal air movement Cardiovascular: nl pulses, regular rate and rhythm Neurological: lethargic Results Result Diagram: 05/24/17 0445 05/23/17 0443 Results 24 hrs Laboratory Tests Test 05/23/17 09:24 05/23/17 12:53 05/23/17 18:08 05/23/17 21:00 Bedside Glucose 118 122 104 96 Test 05/24/17 00:30 05/24/17 04:45 05/24/17 04:48 Bedside Glucose 125 99 White Blood Count 8.6 # Red Blood Count 2.24 L Hemoglobin 6.2 *L Hematocrit 19.9 L Mean Corpuscular Volume 88.8 Mean Corpuscular Hemoglobin 27.7 L Mean Corpuscular Hemoglobin Concent 31.2 L Red Cell Distribution Width 18.6 H Platelet Count 67 #L Mean Platelet Volume 11.5 H Neutrophils % 78.1 H Lymphocytes % 9.2 L Monocytes % 8.6 Eosinophils % 3.4 Basophils % 0.2 Nucleated Red Blood Cells % 0.0 Neutrophils # 6.7 Lymphocytes # 0.8 Monocytes # 0.7 Eosinophils # 0.3 Basophils # 0.0 Nucleated Red Blood Cells # 0.0 Medications Medications Current Medications Ondansetron HCl (Zofran Inj) 4 mg Q6H PRN IV NAUSEA AND/OR VOMITING; Start at 21:30 Acetaminophen (Tylenol Tab) 650 mg Q6H PRN PO PAIN LEVEL 1-3 OR FEVER; Start 05/15/17 at 21:30 Docusate Sodium (Colace) 100 mg Q12H PRN PO CONSTIPATION; Start 05/15/17 at 21 :30 Bisacodyl (Dulcolax) 5 mg DAILY PRN PO CONSTIPATION; Start 05/15/17 at 21:30 Famotidine (Pepcid) 20 mg DAILY PO Last administered on 05/23/17 09:17; Admin Dose 20 MG; Start 05/16/17 at 09:00 Aspirin (Halfprin) 81 mg DAILY PO Last administered on 05/23/17 09:17; Admin Dose 81 MG; Start 05/16/17 at 09:00 Atorvastatin Calcium (Lipitor) 20 mg HS PO Last administered on 05/23/17 20: 55; Admin Dose 20 MG; Start 05/16/17 at 21:00 Donepezil HCl (Aricept) 5 mg DAILY PO Last administered on 05/23/17 09:18; Admin Dose 5 MG; Start 05/16/17 at 09:00 Folic Acid (Folic Acid) 1 mg DAILY PO Last administered on 05/23/17 09:17; Admin Dose 1 MG; Start 05/16/17 at 09:00 Loratadine (Claritin) 10 mg DAILY PO Last administered on 05/23/17 09:18; Admin Dose 10 MG; Start 05/16/17 at 09:00 Megestrol Acetate (Megace) 40 mg DAILY PO Last administered on 05/23/17 12:48 ; Admin Dose 40 MG; Start 05/16/17 at 09:00 Diagnostic Test (Pha) (Accu-Chek) 1 ea 02 XX Last administered on 05/24/17 01 :02; Admin Dose 1 EA; Start 05/16/17 at 02:00 Miscellaneous Information 1 ea NOTE XX ; Start 05/15/17 at 22:00 Glucose (Glutose) 15 gm Q15M PRN PO DECREASED GLUCOSE; Start 05/15/17 at 22:00 Glucose (Glutose) 22.5 gm Q15M PRN PO DECREASED GLUCOSE; Start 05/15/17 at 22: 00 Dextrose (D50w Syringe) 25 ml Q15M PRN IV DECREASED GLUCOSE; Start 05/15/17 at 22:00 Dextrose (D50w Syringe) 50 ml Q15M PRN IV DECREASED GLUCOSE; Start 05/15/17 at 22:00 Glucagon (Glucagen) 1 mg Q15M PRN IM DECREASED GLUCOSE; Start 05/15/17 at 22: 00 Glucose (Glutose) 15 gm Q15M PRN BUCCAL DECREASED GLUCOSE; Start 05/15/17 at 22:00 Sulfacetamide Sodium (Bleph-10 Oph Drop) 1 drop BID BOTH EYES Last administered on 05/23/17 20:55; Admin Dose 1 DROP; Start 05/16/17 at 21:00 Amiodarone HCl (Cordarone) 200 mg DAILY PO Last administered on 05/23/17 09: 17; Admin Dose 200 MG; Start 05/18/17 at 16:00 Collagenase 1 applic 1 applic DAILY TOP Last administered on 05/23/17 09:25; Admin Dose 1 APPLIC; Start 05/18/17 at 21:00 Vancomycin HCl (Vancocin) 250 ml @ 125 mls/hr Q96H IVPB Last administered on 05/20/17 16:58; Admin Dose 125 MLS/HR; Start 05/20/17 at 17:00 Insulin Aspart (Adult SC Insulin - Mild Algorithm)... Q4 SC Last administered on 05/23/17 01:20; Admin Dose 1 UNIT; Start 05/21/17 at 13:00 Phenylephrine HCl 40 mg/Dextrose 500 ml @ 75 mls/hr TITRATE IV Last administered on 05/23/17 00:08; Admin Dose 60 MLS/HR; Start 05/22/17 at 05:30 Sodium Chloride 1,000 ml @ 50 mls/hr Q20H IV Last administered on 05/24/17 03:14; Admin Dose 50 MLS/HR; Start 05/23/17 at 10:30 Meropenem/Sodium Chloride (Merrem 500mg/50 ml(Pmx)) 50 ml @ 100 mls/hr Q24H IVPB Last administered on 05/23/17 18:05; Admin Dose 100 MLS/HR; Start 05/23 at 16:00 KAREN ORDONEZ May 24, 2017 06:29 Meropenem/Sodium Chloride (Merrem 500mg/50 ml(Pmx)) 50 ml @ 100 mls/hr Q24H IVPB Last administered on 05/23/17 18:05; Admin Dose 100 MLS/HR; Start 05/23 at 16:00 KAREN ORDONEZ May 24, 2017 06:29
--- NOTE | 2017-05-24 08:06 | CONS ---
Date/Time of Note Date/Time of Note DATE: 05/24/17 TIME: 08:03 Consult Date/Type/Reason Admit Date/Time May 15, 2017 at 20:02 Initial Consult Date 05/16/17 Type of Consultation: cardiology Ordering Provider: SUNIL GARCIA Subjective CARD F/U: S: D/W STAFF AND rhythm was reviewed. pt remains in demand paced rhythm pt is still in ICU. BP has improved and pt remains off of neosynerphrine drip . remains nonverbal and does not answer my questions. no active bleeding is reported. 0: General: thin man. no acute distress HEENT: NC/AT. pupils are equal. round. NECK: . no stridor. CV: RRR systolic murmur; no gallop or rubs. PULM: no wheezing. + mild rhonchi. GI: SOFT, NT, ND, no rebound or guarding Extremity: trace B/L LE edema. no clubbing. neuro: awake but does not answer my questions. Psych: appears anxious rectal: deferred chest: s/p R HD access in place. ECG NSR. ECHO reviewed recently: 1. Normal left ventricular systolic function. Normal left ventricular cavity size. Left ventricle not well visualized. Moderate concentric left ventricular hypertrophy. Ejection fraction is visually estimated at 60 %. Abnormal Diastolic Function. 2. Mitral valve is not well visualized. Mild mitral leaflet calcification. Mild mitral annular calcification. Trace mitral regurgitation. 3. Aortic valve not well visualized. Moderate aortic stenosis. Aortic valve Max velocity 2.90 m/sec. Max PG 34.00 mmHg. Mean PG 18.00 mmHg. Aortic cusps appear moderately calcified. 4. Normal appearance of the tricuspid valve. Tricuspid valve not well visualized. Estimated peak PA systolic pressure 29 mmHg. There is mild tricuspid regurgitation. 5. very suboptimal study. Objective Objective Vital Signs Date Time Temp Pulse Resp B/P Pulse Ox O2 Delivery O2 Flow Rate FiO2 05/24/17 06:45 91 16 05/24/17 06:00 96/76 05/24/17 05:00 100 05/24/17 04:00 98.9 05/24/17 00:15 4.0 05/23/17 23:00 Nasal Cannula Intake and Output 05/23/17 05/23/17 05/24/17 15:00 23:00 07:00 Intake Total 1215 ml 410 ml 1040 ml Output Total 1400 ml Balance -185 ml 410 ml 1040 ml Results/Medications Result Diagram: 05/24/17 0710 05/24/17 0445 Results 24 hrs Laboratory Tests Test 05/23/17 09:24 05/23/17 12:53 05/23/17 18:08 05/23/17 21:00 Bedside Glucose 118 122 104 96 Test 05/24/17 00:30 05/24/17 04:45 05/24/17 04:48 05/24/17 07:10 Bedside Glucose 125 99 White Blood Count 8.6 # 8.7 Red Blood Count 2.24 L 2.30 L Hemoglobin 6.2 *L 6.4 *L Hematocrit 19.9 L 20.2 L Mean Corpuscular Volume 88.8 87.8 Mean Corpuscular Hemoglobin 27.7 L 27.8 L Mean Corpuscular Hemoglobin Concent 31.2 L 31.7 L Red Cell Distribution Width 18.6 H 18.8 H Platelet Count 67 #L 71 L Mean Platelet Volume 11.5 H 11.4 H Neutrophils % 78.1 H 78.0 H Lymphocytes % 9.2 L 9.2 L Monocytes % 8.6 8.9 Eosinophils % 3.4 3.4 Basophils % 0.2 0.2 Nucleated Red Blood Cells % 0.0 0.0 Neutrophils # 6.7 6.8 Lymphocytes # 0.8 0.8 Monocytes # 0.7 0.8 Eosinophils # 0.3 0.3 Basophils # 0.0 0.0 Nucleated Red Blood Cells # 0.0 0.0 Sodium Level 141 Potassium Level 3.5 Chloride Level 104 Carbon Dioxide Level 27 Anion Gap 14 Blood Urea Nitrogen 31 H Creatinine 3.77 #H Glucose Level 98 Calcium Level 8.2 L Phosphorus Level 3.0 Magnesium Level 2.2 Medications Current Medications Ondansetron HCl (Zofran Inj) 4 mg Q6H PRN IV NAUSEA AND/OR VOMITING; Start at 21:30 Acetaminophen (Tylenol Tab) 650 mg Q6H PRN PO PAIN LEVEL 1-3 OR FEVER; Start 05/15/17 at 21:30 Docusate Sodium (Colace) 100 mg Q12H PRN PO CONSTIPATION; Start 05/15/17 at 21 :30 Bisacodyl (Dulcolax) 5 mg DAILY PRN PO CONSTIPATION; Start 05/15/17 at 21:30 Famotidine (Pepcid) 20 mg DAILY PO Last administered on 05/23/17 09:17; Admin Dose 20 MG; Start 05/16/17 at 09:00 Aspirin (Halfprin) 81 mg DAILY PO Last administered on 05/23/17 09:17; Admin Dose 81 MG; Start 05/16/17 at 09:00 Atorvastatin Calcium (Lipitor) 20 mg HS PO Last administered on 05/23/17 20: 55; Admin Dose 20 MG; Start 05/16/17 at 21:00 Donepezil HCl (Aricept) 5 mg DAILY PO Last administered on 05/23/17 09:18; Admin Dose 5 MG; Start 05/16/17 at 09:00 Folic Acid (Folic Acid) 1 mg DAILY PO Last administered on 05/23/17 09:17; Admin Dose 1 MG; Start 05/16/17 at 09:00 Loratadine (Claritin) 10 mg DAILY PO Last administered on 05/23/17 09:18; Admin Dose 10 MG; Start 05/16/17 at 09:00 Megestrol Acetate (Megace) 40 mg DAILY PO Last administered on 05/23/17 12:48 ; Admin Dose 40 MG; Start 05/16/17 at 09:00 Diagnostic Test (Pha) (Accu-Chek) 1 ea 02 XX Last administered on 05/24/17 01 :02; Admin Dose 1 EA; Start 05/16/17 at 02:00 Miscellaneous Information 1 ea NOTE XX ; Start 05/15/17 at 22:00 Glucose (Glutose) 15 gm Q15M PRN PO DECREASED GLUCOSE; Start 05/15/17 at 22:00 Glucose (Glutose) 22.5 gm Q15M PRN PO DECREASED GLUCOSE; Start 05/15/17 at 22: 00 Dextrose (D50w Syringe) 25 ml Q15M PRN IV DECREASED GLUCOSE; Start 05/15/17 at 22:00 Dextrose (D50w Syringe) 50 ml Q15M PRN IV DECREASED GLUCOSE; Start 05/15/17 at 22:00 Glucagon (Glucagen) 1 mg Q15M PRN IM DECREASED GLUCOSE; Start 05/15/17 at 22: 00 Glucose (Glutose) 15 gm Q15M PRN BUCCAL DECREASED GLUCOSE; Start 05/15/17 at 22:00 Sulfacetamide Sodium (Bleph-10 Oph Drop) 1 drop BID BOTH EYES Last administered on 05/23/17 20:55; Admin Dose 1 DROP; Start 05/16/17 at 21:00 Amiodarone HCl (Cordarone) 200 mg DAILY PO Last administered on 05/23/17 09: 17; Admin Dose 200 MG; Start 05/18/17 at 16:00 Collagenase 1 applic 1 applic DAILY TOP Last administered on 05/23/17 09:25; Admin Dose 1 APPLIC; Start 05/18/17 at 21:00 Vancomycin HCl (Vancocin) 250 ml @ 125 mls/hr Q96H IVPB Last administered on 05/20/17 16:58; Admin Dose 125 MLS/HR; Start 05/20/17 at 17:00 Insulin Aspart (Adult SC Insulin - Mild Algorithm)... Q4 SC Last administered on 05/23/17 01:20; Admin Dose 1 UNIT; Start 05/21/17 at 13:00 Phenylephrine HCl 40 mg/Dextrose 500 ml @ 75 mls/hr TITRATE IV Last administered on 05/23/17 00:08; Admin Dose 60 MLS/HR; Start 05/22/17 at 05:30 Sodium Chloride 1,000 ml @ 50 mls/hr Q20H IV Last administered on 05/24/17 03:14; Admin Dose 50 MLS/HR; Start 05/23/17 at 10:30 Meropenem/Sodium Chloride (Merrem 500mg/50 ml(Pmx)) 50 ml @ 100 mls/hr Q24H IVPB Last administered on 05/23/17 18:05; Admin Dose 100 MLS/HR; Start 05/23 at 16:00 Assessment/Plan Chief Complaint/Hosp Course 1. abnormal ECG and intermittent arrhythmia with P afib and NSVT 2. hypotension/ shcok/sepsis./ bacteremia. 3. ESRD ON HD 4. HX CAD, GA 5. HX dementia 6. P afib 7. sick sinus syndrome 8. s/p PPM 9/ encephalopathy 10. hx CVA 11. severe and worsening anemia . 12. Dyslipidemia: on lipitor 13. severe anemia, Recommendations: HD as per renal Pacemaker was interrogated 05.16.17 and personally reviewed. normal pacing function transfusion prn. will defer to IM team. pt has not been anticoagulated due to concerns about anemia, fall and bleeding. unable to tolerate betablocker so far due to hypotension. cont ASA cont lipitor replace lytes prn abx as per ID REC. Consider removing of HD access which could be the source of bacteremia. will defer to ID rec. Thank you for his referral. I will continue to follow along with you. MELVIN BRODERICK MD [facility] Problems: MELVIN BRODERICK MD May 24, 2017 08:06
[2017-05-24] MEDS ORDERED: SOD CHLORIDE 0.9% 250 ML IV* ONE (08:08)
[2017-05-24] MEDS: MEGESTROL 40 MG TAB PO SCH (08:51)
[2017-05-24] MEDS: AMIODARONE 200 MG TAB PO SCH (08:51)
[2017-05-24] MEDS: ASPIRIN (EC) 81 MG TAB PO SCH (08:51)
[2017-05-24] MEDS: LORATADINE 10 MG TAB PO SCH (08:52)
[2017-05-24] MEDS: DONEPEZIL 5 MG TAB PO SCH (08:52)
[2017-05-24] MEDS: FOLIC ACID 1 MG TAB PO SCH (08:53)
[2017-05-24] MEDS: FAMOTIDINE 20 MG TAB PO SCH (08:57)
[2017-05-24] MEDS: SULFACETAMIDE 10% 15 ML OPH BOTH EYES SCH ×2 (08:57→21:03)
[2017-05-24] MEDS: BALSAM PERU/CASTOR OIL 60 GM TUBE TOP SCH ×2 (08:57→21:03)
[2017-05-24] MEDS: COLLAGENASE 30 GM TUBE TOP SCH (08:58)
--- NOTE | 2017-05-24 11:19 | CONS ---
Date/Time of Note Date/Time of Note DATE: 05/24/17 TIME: 10:43 Assessment/Plan Assessment/Plan Chief Complaint/Hosp Course Summary Assessment and Plan: Assessment: Fail to thrive, malnutrition with hypoalbuminemia, Anemia, chronic, CKD related, s/p transfusion ESRD, on HD Hypotension secondary to dehydration and/or possible early sepsis Lactic acidosis Suspected healthcare associated pneumonia Paroxysmal atrial fibrillation- controlled currently SR History of cerebrovascular accident. Aortic stenosis. Sick sinus syndrome with permanent pacemaker Dyslipidemia, on statin. Dementia/chronic Plan: Cardiac clearance NPO after midnight PEG placement tomorrow Spoke with Son Giovanny Hooper - regarding PEG placement, he would like to move forward with procedure and will be in later to sign consent Endoscopy - risks/benefits/alternatives/indications of procedure and sedation/ anesthesia discussed with patient who states understanding and gives informed consent to proceed. Questions were answered. Stool for OB Patient seen in collaboration with Dr. Min Chief Complaint/Reason for Visit: Failure to thrive, malnutrition with hypoalbuminemia History of Present Illness: This is a non-verbal 89 year old male with multiple comorbidities, including Anemia of chronic disease, ESRD on HD, and failure to thrive. Brought into the emergency room for hypotension from dialysis unit, lab work-up revealed patient to be anemic likely of chronic disease, yet stable. With continued monitoring, Hgb was noted to drop down to the 6's today, and has started blood transfusions. Spoke with nurse denies any evidence of GI bleed i.e. rectal bleeding or hematemesis, will order stool of OB to monitor evidence of GI bleed . Patient is currently receiving NGT feeding, however, this is not a residential solution, per family request will move forward with PEG placement. With cardiac history will need cardiac clearance prior to moving forward with procedure. History obtained from medical records, and speaking with RN. Past Medical History: UTI, Prior thrombocytopenia, Anemia of chronic disease End-stage renal disease on dialysis. BPH, Adult-onset diabetes, History of pacemaker placement, Prior CVA Right chest dialysis catheter placement in the past pacemaker placement . Allergies: No known allergies Family History: No pertinent family history Social History: No ETOH No smoking No drug use Problems: Consultation Date/Type/Reason Admit Date/Time May 15, 2017 at 20:02 Date of Consultation: May 24, 2017 Type of Consultation: GI Reason for Consultation Fail to thrive, malnutrition with hypoalbuminemia Dysphagia PEG placement Subjective hx not possible: pt non-verbal, pt critical Constitutional: disoriented Eyes: no complaints ENT: no complaints Psychological: confusion Past Medical History Medical History: congestive heart failure, coronary artery disease, diabetes, GI bleed Past Surgical History Past Surgical Hx: other Social History Alcohol Use: none Smoking Status: Unknown if ever smoked Drug Use: none Exam/Review of Systems Vital Signs Vitals Vital Signs Date Time Temp Pulse Resp B/P Pulse Ox O2 Delivery O2 Flow Rate FiO2 05/24/17 08:00 94 05/24/17 06:45 16 05/24/17 06:00 96/76 05/24/17 05:00 100 05/24/17 04:00 98.9 05/24/17 00:15 4.0 05/23/17 23:00 Nasal Cannula Intake and Output 05/23/17 05/23/17 05/24/17 15:00 23:00 07:00 Intake Total 1215 ml 410 ml 1040 ml Output Total 1400 ml Balance -185 ml 410 ml 1040 ml Exam Constitutional: non-verbal Head: normocephalic ENMT: nl external ears & nose, other (NGT) Respiratory: diminished breath sounds Cardiovascular: regular rate and rhythm Gastrointestinal: bowel sounds, soft, No ascites, No distended, No firm, No hepatomegaly, No mass, No rebound or guarding, No splenomegaly, No surgical scars, No tender Genitourinary - Male: nl penis Results Result Diagram: 05/24/17 0710 05/24/17 0445 Results 24 hrs Laboratory Tests Test 05/23/17 12:53 05/23/17 18:08 05/23/17 21:00 05/24/17 00:30 Bedside Glucose 122 104 96 125 Test 05/24/17 04:45 05/24/17 04:48 05/24/17 07:10 05/24/17 09:05 White Blood Count 8.6 # 8.7 Red Blood Count 2.24 L 2.30 L Hemoglobin 6.2 *L 6.4 *L Hematocrit 19.9 L 20.2 L Mean Corpuscular Volume 88.8 87.8 Mean Corpuscular Hemoglobin 27.7 L 27.8 L Mean Corpuscular Hemoglobin Concent 31.2 L 31.7 L Red Cell Distribution Width 18.6 H 18.8 H Platelet Count 67 #L 71 L Mean Platelet Volume 11.5 H 11.4 H Neutrophils % 78.1 H 78.0 H Lymphocytes % 9.2 L 9.2 L Monocytes % 8.6 8.9 Eosinophils % 3.4 3.4 Basophils % 0.2 0.2 Nucleated Red Blood Cells % 0.0 0.0 Neutrophils # 6.7 6.8 Lymphocytes # 0.8 0.8 Monocytes # 0.7 0.8 Eosinophils # 0.3 0.3 Basophils # 0.0 0.0 Nucleated Red Blood Cells # 0.0 0.0 Sodium Level 141 Potassium Level 3.5 Chloride Level 104 Carbon Dioxide Level 27 Anion Gap 14 Blood Urea Nitrogen 31 H Creatinine 3.77 #H Glucose Level 98 Calcium Level 8.2 L Phosphorus Level 3.0 Magnesium Level 2.2 Bedside Glucose 99 108 Test 05/24/17 09:28 Absolute Reticulocyte Count 0.027 Percent Reticulocyte Count 1.3 Iron Level 30 L Total Iron Binding Capacity 108 L Percent Iron Saturation 28 Medications Medications Current Medications Ondansetron HCl (Zofran Inj) 4 mg Q6H PRN IV NAUSEA AND/OR VOMITING; Start at 21:30 Acetaminophen (Tylenol Tab) 650 mg Q6H PRN PO PAIN LEVEL 1-3 OR FEVER; Start 05/15/17 at 21:30 Docusate Sodium (Colace) 100 mg Q12H PRN PO CONSTIPATION; Start 05/15/17 at 21 :30 Bisacodyl (Dulcolax) 5 mg DAILY PRN PO CONSTIPATION; Start 05/15/17 at 21:30 Famotidine (Pepcid) 20 mg DAILY PO Last administered on 05/24/17 08:57; Admin Dose 20 MG; Start 05/16/17 at 09:00 Aspirin (Halfprin) 81 mg DAILY PO Last administered on 05/24/17 08:51; Admin Dose 81 MG; Start 05/16/17 at 09:00 Atorvastatin Calcium (Lipitor) 20 mg HS PO Last administered on 05/23/17 20: 55; Admin Dose 20 MG; Start 05/16/17 at 21:00 Donepezil HCl (Aricept) 5 mg DAILY PO Last administered on 05/24/17 08:52; Admin Dose 5 MG; Start 05/16/17 at 09:00 Folic Acid (Folic Acid) 1 mg DAILY PO Last administered on 05/24/17 08:53; Admin Dose 1 MG; Start 05/16/17 at 09:00 Loratadine (Claritin) 10 mg DAILY PO Last administered on 05/24/17 08:52; Admin Dose 10 MG; Start 05/16/17 at 09:00 Megestrol Acetate (Megace) 40 mg DAILY PO Last administered on 05/24/17 08:51 ; Admin Dose 40 MG; Start 05/16/17 at 09:00 Diagnostic Test (Pha) (Accu-Chek) 1 ea 02 XX Last administered on 05/24/17 01 :02; Admin Dose 1 EA; Start 05/16/17 at 02:00 Miscellaneous Information 1 ea NOTE XX ; Start 05/15/17 at 22:00 Glucose (Glutose) 15 gm Q15M PRN PO DECREASED GLUCOSE; Start 05/15/17 at 22:00 Glucose (Glutose) 22.5 gm Q15M PRN PO DECREASED GLUCOSE; Start 05/15/17 at 22: 00 Dextrose (D50w Syringe) 25 ml Q15M PRN IV DECREASED GLUCOSE; Start 05/15/17 at 22:00 Dextrose (D50w Syringe) 50 ml Q15M PRN IV DECREASED GLUCOSE; Start 05/15/17 at 22:00 Glucagon (Glucagen) 1 mg Q15M PRN IM DECREASED GLUCOSE; Start 05/15/17 at 22: 00 Glucose (Glutose) 15 gm Q15M PRN BUCCAL DECREASED GLUCOSE; Start 05/15/17 at 22:00 Sulfacetamide Sodium (Bleph-10 Oph Drop) 1 drop BID BOTH EYES Last administered on 05/24/17 08:57; Admin Dose 1 DROP; Start 05/16/17 at 21:00 Amiodarone HCl (Cordarone) 200 mg DAILY PO Last administered on 05/24/17 08: 51; Admin Dose 200 MG; Start 05/18/17 at 16:00 Collagenase 1 applic 1 applic DAILY TOP Last administered on 05/24/17 08:58; Admin Dose 1 APPLIC; Start 05/18/17 at 21:00 Vancomycin HCl (Vancocin) 250 ml @ 125 mls/hr Q96H IVPB Last administered on 05/20/17 16:58; Admin Dose 125 MLS/HR; Start 05/20/17 at 17:00 Insulin Aspart (Adult SC Insulin - Mild Algorithm)... Q4 SC Last administered on 05/23/17 01:20; Admin Dose 1 UNIT; Start 05/21/17 at 13:00 Phenylephrine HCl 40 mg/Dextrose 500 ml @ 75 mls/hr TITRATE IV Last administered on 05/23/17 00:08; Admin Dose 60 MLS/HR; Start 05/22/17 at 05:30 Sodium Chloride 1,000 ml @ 50 mls/hr Q20H IV Last administered on 05/24/17 03:14; Admin Dose 50 MLS/HR; Start 05/23/17 at 10:30 Meropenem/Sodium Chloride (Merrem 500mg/50 ml(Pmx)) 50 ml @ 100 mls/hr Q24H IVPB Last administered on 05/23/17 18:05; Admin Dose 100 MLS/HR; Start 05/23 at 16:00 Midodrine (Proamatine) 2.5 mg TID PRN GTB mean arterial pressure <65; Start at 10:00 Copies To: CC: JODI MIN MD, VICTORIA May 24, 2017 10:53
[2017-05-24] MEDS: MIDODRINE 2.5 MG TAB GTB PRN ×2 (11:24→23:07)
[2017-05-24] MEDS: ACETAMINOPHEN 325 MG TAB PO PRN ×2 (11:24→21:02)
--- NOTE | 2017-05-24 14:57 | PN ---
DATE: 05/24/2017 SUBJECTIVE: No events overnight. The patient remains lethargic. No fevers. Looks comfortable. T olerates tube feedings. VITAL SIGNS: Temperature 98.2, pulse 95, respirations 20, blood pressure 80/41, saturation 100 on 2 liters. LABORATORY DATA: WBC 8.7, H and H 6.1 and 20.2, platelets 71, neutrophils 78. INDWELLINGS: Right IJ PermCath, NG tube and PICC line. DIAGNOSTICS: CT of the brain yesterday revealed no intracranial hemorrhage. ANTIMICROBIALS: The patient remains on: 1. Vancomycin. 2. Merrem. MICROBIOLOGY: Blood culture on admission growing enterococcus species. Repeat blood cultures negat sari. PHYSICAL EXAMINATION: GENERAL: This is a fragile, chronically ill-appearing, elderly man who is in no distress. HEENT: Head atraumatic, normocephalic. Sclerae anicteric. Buccal mucosa dry. NECK: Supple. CHEST: Rise symmetrical. Breath sounds diminished at bases with scattered crackles. HEART: S1, S2. ABDOMEN: Soft. Bowel tones present. ASSESSMENT: 1. Sepsis with shock. 2. Possible aspiration event with some evidence of pneumonia, sepsis. 3. Healthcare-acquired pneumonia, possibly aspiration. 4. Acute encephalopathy. 5. End-stage renal disease, hemodialysis dependent. 6. Enterococcal bacteremia. Repeat blood cultures negative. 7. Failure to thrive. 8. Coronary artery disease, history of permanent pacemaker. 9. Chemical code. PLAN: Remains unchanged. Continue present care, antibiotics. Follow recommendations of specialist . Dictated By: JACK CHAN DRUM STENCILER for [facility] CLINE/DARON Conf#: [id number] DID#: [id number]
--- NOTE | 2017-05-24 14:57 | PN ---
DATE: 05/24/2017 SUBJECTIVE: No events overnight. The patient remains lethargic. No fevers. Looks comfortable. T olerates tube feedings. VITAL SIGNS: Temperature 98.2, pulse 95, respirations 20, blood pressure 80/41, saturation 100 on 2 liters. LABORATORY DATA: WBC 8.7, H and H 6.1 and 20.2, platelets 71, neutrophils 78. INDWELLINGS: Right IJ PermCath, NG tube and PICC line. DIAGNOSTICS: CT of the brain yesterday revealed no intracranial hemorrhage. ANTIMICROBIALS: The patient remains on: 1. Vancomycin. 2. Merrem. MICROBIOLOGY: Blood culture on admission growing enterococcus species. Repeat blood cultures negat sari. PHYSICAL EXAMINATION: GENERAL: This is a fragile, chronically ill-appearing, elderly man who is in no distress. HEENT: Head atraumatic, normocephalic. Sclerae anicteric. Buccal mucosa dry. NECK: Supple. CHEST: Rise symmetrical. Breath sounds diminished at bases with scattered crackles. HEART: S1, S2. ABDOMEN: Soft. Bowel tones present. ASSESSMENT: 1. Sepsis with shock. 2. Possible aspiration event with some evidence of pneumonia, sepsis. 3. Healthcare-acquired pneumonia, possibly aspiration. 4. Acute encephalopathy. 5. End-stage renal disease, hemodialysis dependent. 6. Enterococcal bacteremia. Repeat blood cultures negative. 7. Failure to thrive. 8. Coronary artery disease, history of permanent pacemaker. 9. Chemical code. PLAN: Remains unchanged. Continue present care, antibiotics. Follow recommendations of specialist . Dictated By: JACK CHAN NEON SIGN SERVICER for [facility] CLINE/DARON Conf#: [id number] DID#: [id number]
--- NOTE | 2017-05-24 14:57 | PN ---
DATE: 05/24/2017 SUBJECTIVE: No events overnight. The patient remains lethargic. No fevers. Looks comfortable. T olerates tube feedings. VITAL SIGNS: Temperature 98.2, pulse 95, respirations 20, blood pressure 80/41, saturation 100 on 2 liters. LABORATORY DATA: WBC 8.7, H and H 6.1 and 20.2, platelets 71, neutrophils 78. INDWELLINGS: Right IJ PermCath, NG tube and PICC line. DIAGNOSTICS: CT of the brain yesterday revealed no intracranial hemorrhage. ANTIMICROBIALS: The patient remains on: 1. Vancomycin. 2. Merrem. MICROBIOLOGY: Blood culture on admission growing enterococcus species. Repeat blood cultures negat sari. PHYSICAL EXAMINATION: GENERAL: This is a fragile, chronically ill-appearing, elderly man who is in no distress. HEENT: Head atraumatic, normocephalic. Sclerae anicteric. Buccal mucosa dry. NECK: Supple. CHEST: Rise symmetrical. Breath sounds diminished at bases with scattered crackles. HEART: S1, S2. ABDOMEN: Soft. Bowel tones present. ASSESSMENT: 1. Sepsis with shock. 2. Possible aspiration event with some evidence of pneumonia, sepsis. 3. Healthcare-acquired pneumonia, possibly aspiration. 4. Acute encephalopathy. 5. End-stage renal disease, hemodialysis dependent. 6. Enterococcal bacteremia. Repeat blood cultures negative. 7. Failure to thrive. 8. Coronary artery disease, history of permanent pacemaker. 9. Chemical code. PLAN: Remains unchanged. Continue present care, antibiotics. Follow recommendations of specialist . Dictated By: JACK CHAN PILE TRIMMER for [facility] CLINE/DARON Conf#: [id number] DID#: [id number]
--- NOTE | 2017-05-24 15:05 | PN ---
Date/Time of Note Date/Time of Note DATE: 05/24/17 TIME: 15:00 Assessment/Plan VTE Prophylaxis VTE Prophylaxis Intervention: SCD's Lines/Catheters IV Catheter Type (from Nrs): PICC Line Central line still needed: Yes Assessment/Plan Chief Complaint/Hosp Course Assessment/Plan #. Septic shock secondary to bacteremia vs pneumonia - Patient was transferred to ICU for pressor support , off pressors for short time, back on pressors, titrate off as possible - Patient had +blood cultures for enterococcus - ID consultation placed and will discuss if believe permacath source of infection and needing to be removed, currently blood cultures are negative. - ECHO ordered to rule out endocarditis, no vegetations seen - Repeat blood cultures ordered as well, pending, negative thus far - On Vancomycin, merrem #hypotension - labile, depends on HD - prn midodrine #encephalopathy -Likely baseline, however change since yesterday -this level of dementia/encephalopathy was seen previously a few weeks ago -repeat CT ordered when able #. Hyponatremia, resolved - Will continue to monitor - Urine studies not possible 2/2 no urine production -? volume overload/renal failure/HD -tube feeds with water flush, Iv fluids, monitor # Anemia, chronic, CKD related, s/p transfusion - remains stable - likely 2/2 chronic disease and repeated daily blood draws - Continue to monitor and transfuse if <7 #. ESRD, DD, on HD, electrolyte abnormalities - Nephrology on board and consultation appreciated - Will need to address removal of permacath and placement temporary line for HD if ID suspicious for permacath infection source. However, currently cultures are negative. - Discussed with son the effects HD has been on his father but still wants to continue. Was asking if can be done twice a week instead and told him to address with his Paper Cutting Machine Operator. #. fail to thrive, moderate malnutrition with hypoalbuminemia - Unlikely to be able to feed himself. GI consulted for PEG tube placement -Spoke with cardiology, states moderate risk for PEG tube placement #. paroxysmal atrial fibrillation, sinus rhythm, not a candidate for anticoagulant - Cardiology on board and consultation appreciated. HR controlled #. history of cerebrovascular accident #. aortic stenosis #. sick sinus syndrome status post permanent pacemaker - pacer interrogated and shows normal pacing function #. dyslipidemia, on statin #. dementia, chronic, stable #. Disposition - Continue monitoring patient in ICU - patient's BP labile, if stable after procedure tomorrow, will downgrade. >40 minutes of critical care time spent with patient. Problems: Subjective 24 Hr Interval Summary Free Text/Dictation moaning, but no real movement to command. Exam/Review of Systems Vital Signs Vitals Vital Signs Date Time Temp Pulse Resp B/P Pulse Ox O2 Delivery O2 Flow Rate FiO2 05/24/17 14:45 97.9 66 18 104/46 100 Nasal Cannula 2.0 Intake and Output 05/23/17 05/23/17 05/24/17 15:00 23:00 07:00 Intake Total 1215 ml 410 ml 1040 ml Output Total 1400 ml Balance -185 ml 410 ml 1040 ml Exam General: frail appearing, NAD, lethargic but arousable HEENT: Atraumatic, normocephalic. The pupils are pinpoint. Neck: Supple with full range of motion. Lungs: Coarse breath sounds bilaterally, no wheezes Heart: Normal S1-S2, regular rate, irregularly irregular rhythm Abdomen: Soft , nontender, nondistended , bowel sounds are present. No guarding no rebound tenderness Extremities: +pedal edema b/l. Normal to inspection, no cyanosis Neuro: follows minimal command, moves all extremities spontaneously Skin: Sacral skin wound, multiple other pressure wounds Results Result Diagram: 05/24/17 0710 05/24/17 0445 Results 24 hrs Laboratory Tests Test 05/23/17 18:08 05/23/17 21:00 05/24/17 00:30 05/24/17 04:45 Bedside Glucose 104 96 125 White Blood Count 8.6 # Red Blood Count 2.24 L Hemoglobin 6.2 *L Hematocrit 19.9 L Mean Corpuscular Volume 88.8 Mean Corpuscular Hemoglobin 27.7 L Mean Corpuscular Hemoglobin Concent 31.2 L Red Cell Distribution Width 18.6 H Platelet Count 67 #L Mean Platelet Volume 11.5 H Neutrophils % 78.1 H Lymphocytes % 9.2 L Monocytes % 8.6 Eosinophils % 3.4 Basophils % 0.2 Nucleated Red Blood Cells % 0.0 Neutrophils # 6.7 Lymphocytes # 0.8 Monocytes # 0.7 Eosinophils # 0.3 Basophils # 0.0 Nucleated Red Blood Cells # 0.0 Sodium Level 141 Potassium Level 3.5 Chloride Level 104 Carbon Dioxide Level 27 Anion Gap 14 Blood Urea Nitrogen 31 H Creatinine 3.77 #H Glucose Level 98 Calcium Level 8.2 L Phosphorus Level 3.0 Magnesium Level 2.2 Test 05/24/17 04:48 05/24/17 07:10 05/24/17 09:05 05/24/17 09:28 Bedside Glucose 99 108 White Blood Count 8.7 Red Blood Count 2.30 L Hemoglobin 6.4 *L Hematocrit 20.2 L Mean Corpuscular Volume 87.8 Mean Corpuscular Hemoglobin 27.8 L Mean Corpuscular Hemoglobin Concent 31.7 L Red Cell Distribution Width 18.8 H Platelet Count 71 L Mean Platelet Volume 11.4 H Neutrophils % 78.0 H Lymphocytes % 9.2 L Monocytes % 8.9 Eosinophils % 3.4 Basophils % 0.2 Nucleated Red Blood Cells % 0.0 Neutrophils # 6.8 Lymphocytes # 0.8 Monocytes # 0.8 Eosinophils # 0.3 Basophils # 0.0 Nucleated Red Blood Cells # 0.0 Absolute Reticulocyte Count 0.027 Percent Reticulocyte Count 1.3 Iron Level 30 L Total Iron Binding Capacity 108 L Percent Iron Saturation 28 Test 05/24/17 13:47 Bedside Glucose 134 Medications Medications Current Medications Ondansetron HCl (Zofran Inj) 4 mg Q6H PRN IV NAUSEA AND/OR VOMITING; Start at 21:30 Acetaminophen (Tylenol Tab) 650 mg Q6H PRN PO PAIN LEVEL 1-3 OR FEVER Last administered on 05/24/17 11:24; Admin Dose 650 MG; Start 05/15/17 at 21:30 Docusate Sodium (Colace) 100 mg Q12H PRN PO CONSTIPATION; Start 05/15/17 at 21 :30 Bisacodyl (Dulcolax) 5 mg DAILY PRN PO CONSTIPATION; Start 05/15/17 at 21:30 Famotidine (Pepcid) 20 mg DAILY PO Last administered on 05/24/17 08:57; Admin Dose 20 MG; Start 05/16/17 at 09:00 Aspirin (Halfprin) 81 mg DAILY PO Last administered on 05/24/17 08:51; Admin Dose 81 MG; Start 05/16/17 at 09:00 Atorvastatin Calcium (Lipitor) 20 mg HS PO Last administered on 05/23/17 20: 55; Admin Dose 20 MG; Start 05/16/17 at 21:00 Donepezil HCl (Aricept) 5 mg DAILY PO Last administered on 05/24/17 08:52; Admin Dose 5 MG; Start 05/16/17 at 09:00 Folic Acid (Folic Acid) 1 mg DAILY PO Last administered on 05/24/17 08:53; Admin Dose 1 MG; Start 05/16/17 at 09:00 Loratadine (Claritin) 10 mg DAILY PO Last administered on 05/24/17 08:52; Admin Dose 10 MG; Start 05/16/17 at 09:00 Megestrol Acetate (Megace) 40 mg DAILY PO Last administered on 05/24/17 08:51 ; Admin Dose 40 MG; Start 05/16/17 at 09:00 Diagnostic Test (Pha) (Accu-Chek) 1 ea 02 XX Last administered on 05/24/17 01 :02; Admin Dose 1 EA; Start 05/16/17 at 02:00 Miscellaneous Information 1 ea NOTE XX ; Start 05/15/17 at 22:00 Glucose (Glutose) 15 gm Q15M PRN PO DECREASED GLUCOSE; Start 05/15/17 at 22:00 Glucose (Glutose) 22.5 gm Q15M PRN PO DECREASED GLUCOSE; Start 05/15/17 at 22: 00 Dextrose (D50w Syringe) 25 ml Q15M PRN IV DECREASED GLUCOSE; Start 05/15/17 at 22:00 Dextrose (D50w Syringe) 50 ml Q15M PRN IV DECREASED GLUCOSE; Start 05/15/17 at 22:00 Glucagon (Glucagen) 1 mg Q15M PRN IM DECREASED GLUCOSE; Start 05/15/17 at 22: 00 Glucose (Glutose) 15 gm Q15M PRN BUCCAL DECREASED GLUCOSE; Start 05/15/17 at 22:00 Sulfacetamide Sodium (Bleph-10 Oph Drop) 1 drop BID BOTH EYES Last administered on 05/24/17 08:57; Admin Dose 1 DROP; Start 05/16/17 at 21:00 Amiodarone HCl (Cordarone) 200 mg DAILY PO Last administered on 05/24/17 08: 51; Admin Dose 200 MG; Start 05/18/17 at 16:00 Collagenase 1 applic 1 applic DAILY TOP Last administered on 05/24/17 08:58; Admin Dose 1 APPLIC; Start 05/18/17 at 21:00 Vancomycin HCl (Vancocin) 250 ml @ 125 mls/hr Q96H IVPB Last administered on 05/20/17 16:58; Admin Dose 125 MLS/HR; Start 05/20/17 at 17:00 Insulin Aspart (Adult SC Insulin - Mild Algorithm)... Q4 SC Last administered on 05/23/17 01:20; Admin Dose 1 UNIT; Start 05/21/17 at 13:00 Phenylephrine HCl 40 mg/Dextrose 500 ml @ 75 mls/hr TITRATE IV Last administered on 05/23/17 00:08; Admin Dose 60 MLS/HR; Start 05/22/17 at 05:30 Sodium Chloride 1,000 ml @ 50 mls/hr Q20H IV Last administered on 05/24/17 03:14; Admin Dose 50 MLS/HR; Start 05/23/17 at 10:30 Meropenem/Sodium Chloride (Merrem 500mg/50 ml(Pmx)) 50 ml @ 100 mls/hr Q24H IVPB Last administered on 05/23/17 18:05; Admin Dose 100 MLS/HR; Start 05/23 at 16:00 Midodrine (Proamatine) 2.5 mg TID PRN GTB mean arterial pressure <65 Last administered on 05/24/17 11:24; Admin Dose 2.5 MG; Start 05/24/17 at 10:00 TYLER MADDEN May 24, 2017 15:05
[2017-05-24] MEDS: MEROPENEM 500MG/50 ML (PMX) 50 ML IVPB SCH (16:32)
[2017-05-24] MEDS: VANCOMYCIN 1 GM in NS 250 ML IVPB SCH (16:32)
[2017-05-24] MEDS: ATORVASTATIN 20 MG TAB PO SCH (21:02)
[2017-05-25] VITALS (33 sets, daily range): BP systolic 62–118; BP diastolic 30–94; PULSE 71–113; RESP 12–33
[2017-05-25] MEDS: Insulin NOVOLOG SS MILD Algorithm (NPO/TPN/ENTERAL FEEDS) SC SCH ×6 (01:00→21:00)
[2017-05-25] MEDS: ACCU-CHEK XX SCH (02:00)
[2017-05-25] MEDS: ACETAMINOPHEN 325 MG TAB PO PRN (05:41)
[2017-05-25] MEDS: SOD CHLORIDE 0.45% 1,000 ML IV SCH ×2 (05:41→21:37)
[2017-05-25] MEDS: MIDODRINE 2.5 MG TAB GTB PRN (06:27)
[2017-05-25] MEDS: DONEPEZIL 5 MG TAB PO SCH (09:00)
[2017-05-25] MEDS: ASPIRIN (EC) 81 MG TAB PO SCH (09:00)
[2017-05-25] MEDS: AMIODARONE 200 MG TAB PO SCH (09:00)
[2017-05-25] MEDS: FOLIC ACID 1 MG TAB PO SCH (09:00)
[2017-05-25] MEDS: FAMOTIDINE 20 MG TAB PO SCH (09:00)
[2017-05-25] MEDS: MEGESTROL 40 MG TAB PO SCH (09:00)
[2017-05-25] MEDS: LORATADINE 10 MG TAB PO SCH (10:00)
[2017-05-25] MEDS: SULFACETAMIDE 10% 15 ML OPH BOTH EYES SCH ×2 (10:07→21:26)
[2017-05-25] MEDS: BALSAM PERU/CASTOR OIL 60 GM TUBE TOP SCH ×2 (10:07→21:26)
[2017-05-25] MEDS: COLLAGENASE 30 GM TUBE TOP SCH (10:07)
--- NOTE | 2017-05-25 10:17 | CONS ---
Date/Time of Note Date/Time of Note DATE: 05/25/17 TIME: 10:15 Assessment/Plan Assessment/Plan Chief Complaint/Hosp Course - ESRD ON HEMODIALYSIS - ANEMIA - PNEUMONIA - CAD / CHF - HYPOTENSION - DM - LOW ALBUMIN plan: In ICU Bedside dialysis Hemodynamic support with IV pressors Minimal UF due to low BP H/H stable Will need to talk to family regarding halfway plan Problems: Consultation Date/Type/Reason Admit Date/Time May 15, 2017 at 20:02 Initial Consult Date 05/16/17 Type of Consultation: NEPHROLOGY Reason for Consultation ESRD on Dialysis Referring Provider: SUNIL GARCIA 24 HR Interval Summary Subjective hx not possible: pt critical status Constitutional: no complaints, poor po Exam/Review of Systems Vital Signs Vitals Vital Signs Date Time Temp Pulse Resp B/P Pulse Ox O2 Delivery O2 Flow Rate FiO2 05/25/17 08:15 104 05/25/17 07:15 25 05/25/17 07:00 81/35 100 Nasal Cannula 4.0 05/25/17 04:00 97.9 05/25/17 02:25 30 Intake and Output 05/24/17 05/24/17 05/25/17 15:00 23:00 07:00 Intake Total 810 ml 350 ml Balance 810 ml 350 ml Exam Constitutional: non-verbal Psych: confusion Head: normocephalic Respiratory: crackles/rales Cardiovascular: edema, systolic murmur Gastrointestinal: soft Results Result Diagram: 05/25/17 0350 05/25/17 0350 Results 24 hrs Laboratory Tests Test 05/24/17 13:47 05/24/17 20:13 05/24/17 21:05 05/25/17 01:13 Bedside Glucose 134 108 121 White Blood Count 10.2 Red Blood Count 2.87 #L Hemoglobin 8.2 #L Hematocrit 24.6 #L Mean Corpuscular Volume 85.7 Mean Corpuscular Hemoglobin 28.6 L Mean Corpuscular Hemoglobin Concent 33.3 Red Cell Distribution Width 17.4 H Platelet Count 72 L Mean Platelet Volume 11.7 H Neutrophils % 76.4 Lymphocytes % 9.7 L Monocytes % 9.1 Eosinophils % 3.9 Basophils % 0.4 Nucleated Red Blood Cells % 0.0 Neutrophils # 7.8 H Lymphocytes # 1.0 Monocytes # 0.9 Eosinophils # 0.4 Basophils # 0.0 Nucleated Red Blood Cells # 0.0 Test 05/25/17 03:50 05/25/17 04:53 05/25/17 05:31 05/25/17 10:05 White Blood Count 10.0 Red Blood Count 2.85 L Hemoglobin 7.8 L Hematocrit 24.1 L Mean Corpuscular Volume 84.6 Mean Corpuscular Hemoglobin 27.4 L Mean Corpuscular Hemoglobin Concent 32.4 Red Cell Distribution Width 17.8 H Platelet Count 77 L Mean Platelet Volume 12.0 H Neutrophils % 77.2 H Lymphocytes % 8.8 L Monocytes % 9.0 Eosinophils % 4.2 Basophils % 0.4 Nucleated Red Blood Cells % 0.0 Neutrophils # 7.7 H Lymphocytes # 0.9 Monocytes # 0.9 Eosinophils # 0.4 Basophils # 0.0 Nucleated Red Blood Cells # 0.0 Sodium Level 134 L Potassium Level 3.4 L Chloride Level 103 Carbon Dioxide Level 25 Anion Gap 9 # Blood Urea Nitrogen 41 H Creatinine 3.91 H Glucose Level 94 Calcium Level 7.3 L Phosphorus Level 2.4 L Magnesium Level 2.0 Lab Scanned Report BLOOD TRANSFUSION Bedside Glucose 101 136 Medications Medications Current Medications Ondansetron HCl (Zofran Inj) 4 mg Q6H PRN IV NAUSEA AND/OR VOMITING; Start at 21:30 Acetaminophen (Tylenol Tab) 650 mg Q6H PRN PO PAIN LEVEL 1-3 OR FEVER Last administered on 05/25/17 05:41; Admin Dose 650 MG; Start 05/15/17 at 21:30 Docusate Sodium (Colace) 100 mg Q12H PRN PO CONSTIPATION; Start 05/15/17 at 21 :30 Bisacodyl (Dulcolax) 5 mg DAILY PRN PO CONSTIPATION; Start 05/15/17 at 21:30 Famotidine (Pepcid) 20 mg DAILY PO Last administered on 05/24/17 08:57; Admin Dose 20 MG; Start 05/16/17 at 09:00 Aspirin (Halfprin) 81 mg DAILY PO Last administered on 05/24/17 08:51; Admin Dose 81 MG; Start 05/16/17 at 09:00 Atorvastatin Calcium (Lipitor) 20 mg HS PO Last administered on 05/24/17 21: 02; Admin Dose 20 MG; Start 05/16/17 at 21:00 Donepezil HCl (Aricept) 5 mg DAILY PO Last administered on 05/24/17 08:52; Admin Dose 5 MG; Start 05/16/17 at 09:00 Folic Acid (Folic Acid) 1 mg DAILY PO Last administered on 05/24/17 08:53; Admin Dose 1 MG; Start 05/16/17 at 09:00 Loratadine (Claritin) 10 mg DAILY PO Last administered on 05/24/17 08:52; Admin Dose 10 MG; Start 05/16/17 at 09:00 Megestrol Acetate (Megace) 40 mg DAILY PO Last administered on 05/24/17 08:51 ; Admin Dose 40 MG; Start 05/16/17 at 09:00 Diagnostic Test (Pha) (Accu-Chek) 1 ea 02 XX Last administered on 05/24/17 01 :02; Admin Dose 1 EA; Start 05/16/17 at 02:00 Miscellaneous Information 1 ea NOTE XX ; Start 05/15/17 at 22:00 Glucose (Glutose) 15 gm Q15M PRN PO DECREASED GLUCOSE; Start 05/15/17 at 22:00 Glucose (Glutose) 22.5 gm Q15M PRN PO DECREASED GLUCOSE; Start 05/15/17 at 22: 00 Dextrose (D50w Syringe) 25 ml Q15M PRN IV DECREASED GLUCOSE; Start 05/15/17 at 22:00 Dextrose (D50w Syringe) 50 ml Q15M PRN IV DECREASED GLUCOSE; Start 05/15/17 at 22:00 Glucagon (Glucagen) 1 mg Q15M PRN IM DECREASED GLUCOSE; Start 05/15/17 at 22: 00 Glucose (Glutose) 15 gm Q15M PRN BUCCAL DECREASED GLUCOSE; Start 05/15/17 at 22:00 Sulfacetamide Sodium (Bleph-10 Oph Drop) 1 drop BID BOTH EYES Last administered on 05/24/17 21:03; Admin Dose 1 DROP; Start 05/16/17 at 21:00 Amiodarone HCl (Cordarone) 200 mg DAILY PO Last administered on 05/24/17 08: 51; Admin Dose 200 MG; Start 05/18/17 at 16:00 Collagenase 1 applic 1 applic DAILY TOP Last administered on 05/24/17 08:58; Admin Dose 1 APPLIC; Start 05/18/17 at 21:00 Vancomycin HCl (Vancocin) 250 ml @ 125 mls/hr Q96H IVPB Last administered on 05/24/17 16:32; Admin Dose 125 MLS/HR; Start 05/20/17 at 17:00 Insulin Aspart (Adult SC Insulin - Mild Algorithm)... Q4 SC Last administered on 05/23/17 01:20; Admin Dose 1 UNIT; Start 05/21/17 at 13:00 Phenylephrine HCl 40 mg/Dextrose 500 ml @ 75 mls/hr TITRATE IV Last administered on 05/23/17 00:08; Admin Dose 60 MLS/HR; Start 05/22/17 at 05:30 Sodium Chloride 1,000 ml @ 50 mls/hr Q20H IV Last administered on 05/25/17 05:41; Admin Dose 50 MLS/HR; Start 05/23/17 at 10:30 Meropenem/Sodium Chloride (Merrem 500mg/50 ml(Pmx)) 50 ml @ 100 mls/hr Q24H IVPB Last administered on 05/24/17 16:32; Admin Dose 100 MLS/HR; Start 05/23 at 16:00 Midodrine (Proamatine) 2.5 mg TID PO ; Start 05/25/17 at 13:00 DENVER ANTONY MD May 25, 2017 10:17
--- NOTE | 2017-05-25 12:07 | PN ---
Date/Time of Note Date/Time of Note DATE: 05/25/17 TIME: 12:03 Assessment/Plan VTE Prophylaxis VTE Prophylaxis Intervention: SCD's Lines/Catheters IV Catheter Type (from Nrs): PICC Line Central line still needed: Yes Assessment/Plan Chief Complaint/Hosp Course Assessment/Plan #. Septic shock secondary to bacteremia vs pneumonia - Patient was transferred to ICU for pressor support , off pressors for short time, back on pressors, titrate off as possible - Patient had +blood cultures for enterococcus - ID consultation placed and will discuss if believe permacath source of infection and needing to be removed, currently blood cultures are negative. - ECHO ordered to rule out endocarditis, no vegetations seen - Repeat blood cultures ordered as well, pending, negative thus far - On Vancomycin, merrem #hypotension - labile, depends on HD - midodrine, patient's son understands this may be harmful in the long run, but wishes to risk the medication to keep patient's BP elevated. #encephalopathy -Likely baseline, no change -this level of dementia/encephalopathy was seen previously a few weeks ago -repeat CT not showing any acute issues #. Hyponatremia, resolved - Will continue to monitor - Urine studies not possible 2/2 no urine production -? volume overload/renal failure/HD -tube feeds with water flush, Iv fluids, monitor # Anemia, chronic, CKD related, s/p transfusion - remains stable - likely 2/2 chronic disease and repeated daily blood draws - Continue to monitor and transfuse if <7 #. ESRD, DD, on HD, electrolyte abnormalities - Nephrology on board and consultation appreciated - Will need to address removal of permacath and placement temporary line for HD if ID suspicious for permacath infection source. However, currently cultures are negative. - Discussed with son the effects HD has been on his father but still wants to continue. Was asking if can be done twice a week instead and told him to address with his Client Onboarding Analyst. #. fail to thrive, moderate malnutrition with hypoalbuminemia - Unlikely to be able to feed himself. GI consulted for PEG tube placement -Spoke with cardiology, states moderate risk for PEG tube placement #. paroxysmal atrial fibrillation, sinus rhythm, not a candidate for anticoagulant - Cardiology on board and consultation appreciated. HR controlled #. history of cerebrovascular accident #. aortic stenosis #. sick sinus syndrome status post permanent pacemaker - pacer interrogated and shows normal pacing function #. dyslipidemia, on statin #. dementia, chronic, stable #. Disposition - Continue monitoring patient in ICU - patient's BP labile, if stable after procedure tomorrow, will downgrade. >40 minutes of critical care time spent with patient. Problems: Subjective 24 Hr Interval Summary Free Text/Dictation patient has severe dementia, moans at baseline. unable to follow directions Exam/Review of Systems Vital Signs Vitals Vital Signs Date Time Temp Pulse Resp B/P Pulse Ox O2 Delivery O2 Flow Rate FiO2 05/25/17 09:35 104 25 05/25/17 07:00 81/35 100 Nasal Cannula 4.0 05/25/17 04:00 97.9 05/25/17 02:25 30 Intake and Output 05/24/17 05/24/17 05/25/17 15:00 23:00 07:00 Intake Total 810 ml 350 ml Balance 810 ml 350 ml Exam General: frail appearing, NAD, lethargic but arousable HEENT: Atraumatic, normocephalic. The pupils are pinpoint. Neck: Supple with full range of motion. Lungs: Coarse breath sounds bilaterally, no wheezes Heart: Normal S1-S2, regular rate, irregularly irregular rhythm Abdomen: Soft , nontender, nondistended , bowel sounds are present. No guarding no rebound tenderness Extremities: +pedal edema b/l. Normal to inspection, no cyanosis Neuro: follows minimal command, moves all extremities spontaneously Skin: Sacral skin wound, multiple other pressure wounds Results Result Diagram: 05/25/17 0350 05/25/17 0350 Results 24 hrs Laboratory Tests Test 05/24/17 13:47 05/24/17 20:13 05/24/17 21:05 05/25/17 01:13 Bedside Glucose 134 108 121 White Blood Count 10.2 Red Blood Count 2.87 #L Hemoglobin 8.2 #L Hematocrit 24.6 #L Mean Corpuscular Volume 85.7 Mean Corpuscular Hemoglobin 28.6 L Mean Corpuscular Hemoglobin Concent 33.3 Red Cell Distribution Width 17.4 H Platelet Count 72 L Mean Platelet Volume 11.7 H Neutrophils % 76.4 Lymphocytes % 9.7 L Monocytes % 9.1 Eosinophils % 3.9 Basophils % 0.4 Nucleated Red Blood Cells % 0.0 Neutrophils # 7.8 H Lymphocytes # 1.0 Monocytes # 0.9 Eosinophils # 0.4 Basophils # 0.0 Nucleated Red Blood Cells # 0.0 Test 05/25/17 03:50 05/25/17 04:53 05/25/17 05:31 05/25/17 10:05 White Blood Count 10.0 Red Blood Count 2.85 L Hemoglobin 7.8 L Hematocrit 24.1 L Mean Corpuscular Volume 84.6 Mean Corpuscular Hemoglobin 27.4 L Mean Corpuscular Hemoglobin Concent 32.4 Red Cell Distribution Width 17.8 H Platelet Count 77 L Mean Platelet Volume 12.0 H Neutrophils % 77.2 H Lymphocytes % 8.8 L Monocytes % 9.0 Eosinophils % 4.2 Basophils % 0.4 Nucleated Red Blood Cells % 0.0 Neutrophils # 7.7 H Lymphocytes # 0.9 Monocytes # 0.9 Eosinophils # 0.4 Basophils # 0.0 Nucleated Red Blood Cells # 0.0 Sodium Level 134 L Potassium Level 3.4 L Chloride Level 103 Carbon Dioxide Level 25 Anion Gap 9 # Blood Urea Nitrogen 41 H Creatinine 3.91 H Glucose Level 94 Calcium Level 7.3 L Phosphorus Level 2.4 L Magnesium Level 2.0 Lab Scanned Report BLOOD TRANSFUSION Bedside Glucose 101 136 Medications Medications Current Medications Ondansetron HCl (Zofran Inj) 4 mg Q6H PRN IV NAUSEA AND/OR VOMITING; Start at 21:30 Acetaminophen (Tylenol Tab) 650 mg Q6H PRN PO PAIN LEVEL 1-3 OR FEVER Last administered on 05/25/17 05:41; Admin Dose 650 MG; Start 05/15/17 at 21:30 Docusate Sodium (Colace) 100 mg Q12H PRN PO CONSTIPATION; Start 05/15/17 at 21 :30 Bisacodyl (Dulcolax) 5 mg DAILY PRN PO CONSTIPATION; Start 05/15/17 at 21:30 Famotidine (Pepcid) 20 mg DAILY PO Last administered on 05/24/17 08:57; Admin Dose 20 MG; Start 05/16/17 at 09:00 Aspirin (Halfprin) 81 mg DAILY PO Last administered on 05/24/17 08:51; Admin Dose 81 MG; Start 05/16/17 at 09:00 Atorvastatin Calcium (Lipitor) 20 mg HS PO Last administered on 05/24/17 21: 02; Admin Dose 20 MG; Start 05/16/17 at 21:00 Donepezil HCl (Aricept) 5 mg DAILY PO Last administered on 05/24/17 08:52; Admin Dose 5 MG; Start 05/16/17 at 09:00 Folic Acid (Folic Acid) 1 mg DAILY PO Last administered on 05/24/17 08:53; Admin Dose 1 MG; Start 05/16/17 at 09:00 Loratadine (Claritin) 10 mg DAILY PO Last administered on 05/24/17 08:52; Admin Dose 10 MG; Start 05/16/17 at 09:00 Megestrol Acetate (Megace) 40 mg DAILY PO Last administered on 05/24/17 08:51 ; Admin Dose 40 MG; Start 05/16/17 at 09:00 Diagnostic Test (Pha) (Accu-Chek) 1 ea 02 XX Last administered on 05/24/17 01 :02; Admin Dose 1 EA; Start 05/16/17 at 02:00 Miscellaneous Information 1 ea NOTE XX ; Start 05/15/17 at 22:00 Glucose (Glutose) 15 gm Q15M PRN PO DECREASED GLUCOSE; Start 05/15/17 at 22:00 Glucose (Glutose) 22.5 gm Q15M PRN PO DECREASED GLUCOSE; Start 05/15/17 at 22: 00 Dextrose (D50w Syringe) 25 ml Q15M PRN IV DECREASED GLUCOSE; Start 05/15/17 at 22:00 Dextrose (D50w Syringe) 50 ml Q15M PRN IV DECREASED GLUCOSE; Start 05/15/17 at 22:00 Glucagon (Glucagen) 1 mg Q15M PRN IM DECREASED GLUCOSE; Start 05/15/17 at 22: 00 Glucose (Glutose) 15 gm Q15M PRN BUCCAL DECREASED GLUCOSE; Start 05/15/17 at 22:00 Sulfacetamide Sodium (Bleph-10 Oph Drop) 1 drop BID BOTH EYES Last administered on 05/25/17 10:07; Admin Dose 1 DROP; Start 05/16/17 at 21:00 Amiodarone HCl (Cordarone) 200 mg DAILY PO Last administered on 05/24/17 08: 51; Admin Dose 200 MG; Start 05/18/17 at 16:00 Collagenase 1 applic 1 applic DAILY TOP Last administered on 05/25/17 10:07; Admin Dose 1 APPLIC; Start 05/18/17 at 21:00 Vancomycin HCl (Vancocin) 250 ml @ 125 mls/hr Q96H IVPB Last administered on 05/24/17 16:32; Admin Dose 125 MLS/HR; Start 05/20/17 at 17:00 Insulin Aspart (Adult SC Insulin - Mild Algorithm)... Q4 SC Last administered on 05/23/17 01:20; Admin Dose 1 UNIT; Start 05/21/17 at 13:00 Phenylephrine HCl 40 mg/Dextrose 500 ml @ 75 mls/hr TITRATE IV Last administered on 05/23/17 00:08; Admin Dose 60 MLS/HR; Start 05/22/17 at 05:30 Sodium Chloride 1,000 ml @ 50 mls/hr Q20H IV Last administered on 05/25/17 05:41; Admin Dose 50 MLS/HR; Start 05/23/17 at 10:30 Meropenem/Sodium Chloride (Merrem 500mg/50 ml(Pmx)) 50 ml @ 100 mls/hr Q24H IVPB Last administered on 05/24/17 16:32; Admin Dose 100 MLS/HR; Start 05/23 at 16:00 Midodrine (Proamatine) 2.5 mg TID PO ; Start 05/25/17 at 13:00 TYLER MADDEN May 25, 2017 12:07
--- NOTE | 2017-05-25 12:30 | PN ---
DATE: 05/25/2017 SUBJECTIVE: No acute changes. The patient remains lethargic, just finished hemodialysis. No fever s overnight. VITAL SIGNS: Temperature 97.9, pulse 88, respirations 25, blood pressure 81/35, saturation 100 on 4 liters. INDWELLINGS: NG tube, right IJ PermCath, PICC line placed on 05/22/2017. ANTIMICROBIALS: Patient remains on meropenem and vancomycin. Vancomycin trough on 05/20/2017 was 1 3.7. PHYSICAL EXAMINATION: GENERAL: This is a fragile, chronically ill-appearing, elderly man who is in no distress. HEENT: Head atraumatic, normocephalic. Sclerae anicteric. Buccal mucosa dry. NECK: Supple. Trachea midline. CHEST: Rise symmetrical. Breath sounds diminished to bases. HEART: S1, S2. ABDOMEN: Soft. Bowel tones present. EXTREMITIES: Without cyanosis. ASSESSMENT: 1. Sepsis. 2. Acute encephalopathy. 3. Possible aspiration event. 4. Healthcare-associated pneumonia. 5. End-stage renal disease, hemodialysis dependent. 6. Status post enterococcal bacteremia. Repeat blood cultures negative. 7. Coronary artery disease with a history of permanent pacemaker placement. PLAN: The patient remains unchanged. He is chemical code. He is followed by multiple consultants. A 2D echo on admission revealed no vegetations. Repeat blood cultures have been negative. We sergio l continue him on current antimicrobials. Continue anti-aspiration measures. Dictated By: JACK CHAN MEAT PICKLER for ZUHAIR CLINE/DARON Conf#: [id number] DID#: [id number]
--- NOTE | 2017-05-25 12:30 | PN ---
DATE: 05/25/2017 SUBJECTIVE: No acute changes. The patient remains lethargic, just finished hemodialysis. No fever s overnight. VITAL SIGNS: Temperature 97.9, pulse 88, respirations 25, blood pressure 81/35, saturation 100 on 4 liters. INDWELLINGS: NG tube, right IJ PermCath, PICC line placed on 05/22/2017. ANTIMICROBIALS: Patient remains on meropenem and vancomycin. Vancomycin trough on 05/20/2017 was 1 3.7. PHYSICAL EXAMINATION: GENERAL: This is a fragile, chronically ill-appearing, elderly man who is in no distress. HEENT: Head atraumatic, normocephalic. Sclerae anicteric. Buccal mucosa dry. NECK: Supple. Trachea midline. CHEST: Rise symmetrical. Breath sounds diminished to bases. HEART: S1, S2. ABDOMEN: Soft. Bowel tones present. EXTREMITIES: Without cyanosis. ASSESSMENT: 1. Sepsis. 2. Acute encephalopathy. 3. Possible aspiration event. 4. Healthcare-associated pneumonia. 5. End-stage renal disease, hemodialysis dependent. 6. Status post enterococcal bacteremia. Repeat blood cultures negative. 7. Coronary artery disease with a history of permanent pacemaker placement. PLAN: The patient remains unchanged. He is chemical code. He is followed by multiple consultants. A 2D echo on admission revealed no vegetations. Repeat blood cultures have been negative. We sergio l continue him on current antimicrobials. Continue anti-aspiration measures. Dictated By: JACK CHAN AUTOMATIC BEAM WARPER TENDER for ZUHAIR CLINE/DARON Conf#: [id number] DID#: [id number]
--- NOTE | 2017-05-25 12:30 | PN ---
DATE: 05/25/2017 SUBJECTIVE: No acute changes. The patient remains lethargic, just finished hemodialysis. No fever s overnight. VITAL SIGNS: Temperature 97.9, pulse 88, respirations 25, blood pressure 81/35, saturation 100 on 4 liters. INDWELLINGS: NG tube, right IJ PermCath, PICC line placed on 05/22/2017. ANTIMICROBIALS: Patient remains on meropenem and vancomycin. Vancomycin trough on 05/20/2017 was 1 3.7. PHYSICAL EXAMINATION: GENERAL: This is a fragile, chronically ill-appearing, elderly man who is in no distress. HEENT: Head atraumatic, normocephalic. Sclerae anicteric. Buccal mucosa dry. NECK: Supple. Trachea midline. CHEST: Rise symmetrical. Breath sounds diminished to bases. HEART: S1, S2. ABDOMEN: Soft. Bowel tones present. EXTREMITIES: Without cyanosis. ASSESSMENT: 1. Sepsis. 2. Acute encephalopathy. 3. Possible aspiration event. 4. Healthcare-associated pneumonia. 5. End-stage renal disease, hemodialysis dependent. 6. Status post enterococcal bacteremia. Repeat blood cultures negative. 7. Coronary artery disease with a history of permanent pacemaker placement. PLAN: The patient remains unchanged. He is chemical code. He is followed by multiple consultants. A 2D echo on admission revealed no vegetations. Repeat blood cultures have been negative. We sergio l continue him on current antimicrobials. Continue anti-aspiration measures. Dictated By: JACK CHAN PARTS SALESPERSON for ZUHAIR CLINE/DARON Conf#: [id number] DID#: [id number]
[2017-05-25] MEDS: MIDODRINE 2.5 MG TAB PO SCH ×2 (12:59→21:26)
--- NOTE | 2017-05-25 14:56 | CONS ---
Date/Time of Note Date/Time of Note DATE: 05/25/17 TIME: 14:53 Consult Date/Type/Reason Admit Date/Time May 15, 2017 at 20:02 Initial Consult Date 05/16/17 Type of Consultation: cardiology Ordering Provider: SUNIL GARCIA Subjective CARD F/U: S: d/w son jose willard DR Valle. pt is scheduled for PEG D/W STAFF AND rhythm was reviewed. pt remains in paced rhythm pt is still in ICU. BP has improved and pt remains off of neosynerphrine drip . remains nonverbal and does not answer my questions. no active bleeding is reported. 0: General: thin man. no acute distress HEENT: NC/AT. pupils are equal. round. s/p NG tube. NECK: . no stridor. CV: RRR systolic murmur; no gallop or rubs. PULM: no wheezing. + mild rhonchi. GI: SOFT, NT, ND, no rebound or guarding Extremity: trace B/L LE edema. no clubbing. neuro: awake but does not answer my questions. Psych: appears anxious rectal: deferred chest: s/p R HD access in place. ECG NSR. ECHO reviewed recently: 1. Normal left ventricular systolic function. Normal left ventricular cavity size. Left ventricle not well visualized. Moderate concentric left ventricular hypertrophy. Ejection fraction is visually estimated at 60 %. Abnormal Diastolic Function. 2. Mitral valve is not well visualized. Mild mitral leaflet calcification. Mild mitral annular calcification. Trace mitral regurgitation. 3. Aortic valve not well visualized. Moderate aortic stenosis. Aortic valve Max velocity 2.90 m/sec. Max PG 34.00 mmHg. Mean PG 18.00 mmHg. Aortic cusps appear moderately calcified. 4. Normal appearance of the tricuspid valve. Tricuspid valve not well visualized. Estimated peak PA systolic pressure 29 mmHg. There is mild tricuspid regurgitation. 5. very suboptimal study. Objective Vital Signs Date Time Temp Pulse Resp B/P Pulse Ox O2 Delivery O2 Flow Rate FiO2 05/25/17 13:00 78 20 90/48 100 Nasal Cannula 2.0 05/25/17 12:00 97.8 05/25/17 02:25 30 Intake and Output 05/24/17 05/24/17 05/25/17 15:00 23:00 07:00 Intake Total 810 ml 400 ml Output Total 0 ml Balance 810 ml 400 ml Results/Medications Result Diagram: 05/25/17 0350 05/25/17 0350 Results 24 hrs Laboratory Tests Test 05/24/17 20:13 05/24/17 21:05 05/25/17 01:13 05/25/17 03:50 White Blood Count 10.2 10.0 Red Blood Count 2.87 #L 2.85 L Hemoglobin 8.2 #L 7.8 L Hematocrit 24.6 #L 24.1 L Mean Corpuscular Volume 85.7 84.6 Mean Corpuscular Hemoglobin 28.6 L 27.4 L Mean Corpuscular Hemoglobin Concent 33.3 32.4 Red Cell Distribution Width 17.4 H 17.8 H Platelet Count 72 L 77 L Mean Platelet Volume 11.7 H 12.0 H Neutrophils % 76.4 77.2 H Lymphocytes % 9.7 L 8.8 L Monocytes % 9.1 9.0 Eosinophils % 3.9 4.2 Basophils % 0.4 0.4 Nucleated Red Blood Cells % 0.0 0.0 Neutrophils # 7.8 H 7.7 H Lymphocytes # 1.0 0.9 Monocytes # 0.9 0.9 Eosinophils # 0.4 0.4 Basophils # 0.0 0.0 Nucleated Red Blood Cells # 0.0 0.0 Bedside Glucose 108 121 Sodium Level 134 L Potassium Level 3.4 L Chloride Level 103 Carbon Dioxide Level 25 Anion Gap 9 # Blood Urea Nitrogen 41 H Creatinine 3.91 H Glucose Level 94 Calcium Level 7.3 L Phosphorus Level 2.4 L Magnesium Level 2.0 Test 05/25/17 04:53 05/25/17 05:31 05/25/17 10:05 05/25/17 12:58 Lab Scanned Report BLOOD TRANSFUSION Bedside Glucose 101 136 100 Medications Current Medications Ondansetron HCl (Zofran Inj) 4 mg Q6H PRN IV NAUSEA AND/OR VOMITING; Start at 21:30 Acetaminophen (Tylenol Tab) 650 mg Q6H PRN PO PAIN LEVEL 1-3 OR FEVER Last administered on 05/25/17t 05:41; Admin Dose 650 MG; Start 05/15/17 at 21:30 Docusate Sodium (Colace) 100 mg Q12H PRN PO CONSTIPATION; Start 05/15/17 at 21 :30 Bisacodyl (Dulcolax) 5 mg DAILY PRN PO CONSTIPATION; Start 05/15/17 at 21:30 Famotidine (Pepcid) 20 mg DAILY PO Last administered on 05/24/17 08:57; Admin Dose 20 MG; Start 05/16/17 at 09:00 Aspirin (Halfprin) 81 mg DAILY PO Last administered on 05/24/17 08:51; Admin Dose 81 MG; Start 05/16/17 at 09:00 Atorvastatin Calcium (Lipitor) 20 mg HS PO Last administered on 05/24/17 21: 02; Admin Dose 20 MG; Start 05/16/17 at 21:00 Donepezil HCl (Aricept) 5 mg DAILY PO Last administered on 05/24/17 08:52; Admin Dose 5 MG; Start 05/16/17 at 09:00 Folic Acid (Folic Acid) 1 mg DAILY PO Last administered on 05/24/17 08:53; Admin Dose 1 MG; Start 05/16/17 at 09:00 Loratadine (Claritin) 10 mg DAILY PO Last administered on 05/24/17 08:52; Admin Dose 10 MG; Start 05/16/17 at 09:00 Megestrol Acetate (Megace) 40 mg DAILY PO Last administered on 05/24/17 08:51 ; Admin Dose 40 MG; Start 05/16/17 at 09:00 Diagnostic Test (Pha) (Accu-Chek) 1 ea 02 XX Last administered on 05/24/17 01 :02; Admin Dose 1 EA; Start 05/16/17 at 02:00 Miscellaneous Information 1 ea NOTE XX ; Start 05/15/17 at 22:00 Glucose (Glutose) 15 gm Q15M PRN PO DECREASED GLUCOSE; Start 05/15/17 at 22:00 Glucose (Glutose) 22.5 gm Q15M PRN PO DECREASED GLUCOSE; Start 05/15/17 at 22: 00 Dextrose (D50w Syringe) 25 ml Q15M PRN IV DECREASED GLUCOSE; Start 05/15/17 at 22:00 Dextrose (D50w Syringe) 50 ml Q15M PRN IV DECREASED GLUCOSE; Start 05/15/17 at 22:00 Glucagon (Glucagen) 1 mg Q15M PRN IM DECREASED GLUCOSE; Start 05/15/17 at 22: 00 Glucose (Glutose) 15 gm Q15M PRN BUCCAL DECREASED GLUCOSE; Start 05/15/17 at 22:00 Sulfacetamide Sodium (Bleph-10 Oph Drop) 1 drop BID BOTH EYES Last administered on 05/25/17 10:07; Admin Dose 1 DROP; Start 05/16/17 at 21:00 Amiodarone HCl (Cordarone) 200 mg DAILY PO Last administered on 05/24/17 08: 51; Admin Dose 200 MG; Start 05/18/17 at 16:00 Collagenase 1 applic 1 applic DAILY TOP Last administered on 05/25/17 10:07; Admin Dose 1 APPLIC; Start 05/18/17 at 21:00 Vancomycin HCl (Vancocin) 250 ml @ 125 mls/hr Q96H IVPB Last administered on 05/24/17 16:32; Admin Dose 125 MLS/HR; Start 05/20/17 at 17:00 Insulin Aspart (Adult SC Insulin - Mild Algorithm)... Q4 SC Last administered on 05/23/17 01:20; Admin Dose 1 UNIT; Start 05/21/17 at 13:00 Phenylephrine HCl 40 mg/Dextrose 500 ml @ 75 mls/hr TITRATE IV Last administered on 05/23/17 00:08; Admin Dose 60 MLS/HR; Start 05/22/17 at 05:30 Sodium Chloride 1,000 ml @ 50 mls/hr Q20H IV Last administered on 05/25/17 05:41; Admin Dose 50 MLS/HR; Start 05/23/17 at 10:30 Meropenem/Sodium Chloride (Merrem 500mg/50 ml(Pmx)) 50 ml @ 100 mls/hr Q24H IVPB Last administered on 05/24/17 16:32; Admin Dose 100 MLS/HR; Start 05/23 at 16:00 Midodrine (Proamatine) 2.5 mg TID PO ; Start 05/25/17 at 13:00 Assessment/Plan Chief Complaint/Hosp Course 1. abnormal ECG and intermittent arrhythmia with P afib and NSVT 2. hypotension/ shcok/sepsis./ bacteremia. 3. ESRD ON HD 4. HX CAD, AR 5. HX dementia 6. P afib 7. sick sinus syndrome 8. s/p PPM 9/ encephalopathy 10. hx CVA 11. severe and worsening anemia . 12. Dyslipidemia: on lipitor 13. severe anemia, 14. CV preop evaluation: no further cardiac work up would be indicated or beneficial prior to the needed PEG placement. pt already had HD today and remains in Paced rhythm. he would be at moderate risk of CV events given his general poor medical condition. Recommendations: HD as per renal Pacemaker was interrogated 05.16.17 and personally reviewed. normal pacing function transfusion prn. will defer to IM team. pt has not been anticoagulated due to concerns about anemia, fall and bleeding. unable to tolerate betablocker so far due to hypotension. cont ASA cont lipitor replace lytes prn abx as per ID REC. . Thank you for his referral. I will continue to follow along with you. MELVIN BRODERICK MD [facility] Problems: MEVLIN BRODERICK MD May 25, 2017 14:56
[2017-05-25] MEDS: MEROPENEM 500MG/50 ML (PMX) 50 ML IVPB SCH (16:41)
--- NOTE | 2017-05-25 19:41 | OPPN ---
Date/Time of Note Date/Time of Note DATE: 05/25/17 TIME: 19:39 Proc Note GI Procedure Date 05/25/17 Indication: other (Dysphagia) Pre-procedure Diagnosis Feeding difficulties Post-procedure Diagnosis Impression: Uneventful PEG Placement of Macedonian 20 gastrostomy tube Plan: May use gastrostomy tube for medications tonight Start feedings tomorrow morning Routine GT care . Procedure Performed: Other (EGD plus PEG) Surgeon JODI MIN MD See signature line [employer] none Anesthesia Type: MAC Anesthesiologist: ENMANUEL MANZANO Tourniquet Time none EBL none Transfusion required none Biopsy 1: None Grafts/Implants none Tubes/Drains none Complication(s) none Disposition: other (ICU) Procedure Description After informed consent, with the patient/relatives understanding the procedure, its indications, potential risks and complications, including but not limited to : Allergic reaction, bleeding, perforation or infection, and all after all pertinent questions were answered to the patient's satisfaction, patient/ relative signed witnessed informed consent. Following this, premedication was administered slowly IV push under care of cardiovascular respiratory monitoring with pulse oximetry, and automatic blood pressure, and shelter monitor. Once to sedative effect was achieved the patient was placed in the left lateral decubitus, the panendoscope was introduced and advanced under visual control. Careful examination of the upper gastrointestinal tract, both on insertion as well as withdrawal of the instrument disclosed following findings: ESOPHAGUS: The mucosa of the entire esophagus was carefully examined and showed the following findings: [The mucosa appears within normal limits. There is no evidence of esophagitis, varices, neoplasm or stricture. No hiatal hernia identified.] Stomach: Upon entrance to the stomach air was insufflated, the gastric clifton distended normally. The mucosa of the fundus, body and antrum of the stomach was carefully examined both head-on and on retroflexion, and showed the following findings: [The mucosa appears within normal limits with no abnormalities. There is no evidence of gastritis, ulcers or neoplasm.] Pylorus: The pylorus was carefully examined and showed the following findings: [The pylorus appears patent and within normal limits, with no evidence of gastric outlet obstruction.] Duodenum: The duodenal mucosa was carefully examined in the duodenal bulb as well as the second portion of the duodenum and showed the following findings: [The mucosa appears unremarkable with no evidence of duodenitis, ulcer or neoplasm.] The instrument was then brought back to the stomach and the anterior wall mid- body was identified by transillumination and "finger indentation", this area was then marked in the anterior wall of the abdomen, it was cleansed with Betadine and infiltrated with Xylocaine 1%. Following this a trocar needle was introduced into the gastric lumen under visual control with the endoscope, once in the gastric lumen a guide wire was advanced and secured with a polypectomy snare, at this point the endoscope was withdrawn bringing the guidewire out through the patient's mouth. Following this a Macedonian #20 gastrostomy tube was introduced over the guidewire, with the Eduard-Shell technique without difficulty , a small incision was performed in the skin to allow easy passage of the G-tube , once the position of the gastrostomy was confirmed, the external stopper and connectors were installed, and a clean dressing applied. The patient tolerated the procedure well and was transferred out of the endoscopy suite awake, and in good condition to continue recovery under observation, feedings will start in the next 12-24 hours and the discharge in the care will be instituted. Copies To: CC: JODI MIN MD, MORDO MD May 25, 2017 19:41
--- NOTE | 2017-05-25 19:44 | HPN ---
Date/Time of Note Date/Time of Note DATE: 05/25/17 TIME: 19:43 Interval H&P Admission Note Pt. seen H&P reviewed: No system changes JODI MIN MD May 25, 2017 19:44
[2017-05-25] MEDS: ATORVASTATIN 20 MG TAB PO SCH (21:26)
[2017-05-26] VITALS (19 sets, daily range): BP systolic 94–121; BP diastolic 30–55; PULSE 68–102; RESP 9–25
[2017-05-26] MEDS: Insulin NOVOLOG SS MILD Algorithm (NPO/TPN/ENTERAL FEEDS) SC SCH ×6 (01:00→20:10)
[2017-05-26] MEDS: ACCU-CHEK XX SCH (01:16)
--- NOTE | 2017-05-26 09:25 | RADRPT ---
PROCEDURE: XR Chest. CLINICAL INDICATION: Hypoxia. TECHNIQUE: Single frontal view. COMPARISON: 05/22/2017. FINDINGS: The nasogastric tube has been removed. The tunneled right internal jugular vein dialysis catheter, r ight arm PICC line, and permanent pacemaker are all once again noted. The heart is enlarged. There i s calcification in the aorta consistent with atherosclerosis. Atelectasis at the lung bases and moderate bilateral pleural effusions are unchanged. There is no pneumothorax. IMPRESSION: 1. Nasogastric tube removed. 2. No other change from 05/22/2017. RPTAT: QQ .Luis Cruz MD, MD Date Time Electronically viewed and signed by .Luis Cruz MD, MD on 05/26/2017 09:24 .R/
[2017-05-26] MEDS: SULFACETAMIDE 10% 15 ML OPH BOTH EYES SCH ×2 (09:26→20:09)
[2017-05-26] MEDS: BALSAM PERU/CASTOR OIL 60 GM TUBE TOP SCH ×2 (09:26→20:10)
[2017-05-26] MEDS: COLLAGENASE 30 GM TUBE TOP SCH (09:26)
[2017-05-26] MEDS: MIDODRINE 2.5 MG TAB PO SCH ×3 (09:27→20:09)
[2017-05-26] MEDS: AMIODARONE 200 MG TAB PO SCH (09:27)
[2017-05-26] MEDS: FAMOTIDINE 20 MG TAB PO SCH (09:28)
[2017-05-26] MEDS: MEGESTROL 40 MG TAB PO SCH (09:28)
[2017-05-26] MEDS: DONEPEZIL 5 MG TAB PO SCH (09:28)
[2017-05-26] MEDS: FOLIC ACID 1 MG TAB PO SCH (09:28)
[2017-05-26] MEDS: ASPIRIN (EC) 81 MG TAB PO SCH (09:28)
--- NOTE | 2017-05-26 09:39 | CONS ---
Date/Time of Note Date/Time of Note DATE: 05/26/17 TIME: 09:18 Assessment/Plan Assessment/Plan Chief Complaint/Hosp Course ID PROGRESS NOTE CURRENT ABX: TOTAL ABX DAY # 11=> Vanco IV + Merrem 24H INTERVAL SUMMARY * Frail elder, w/mild tachypnea & supplemental O2 via NC 4L, intermittent pacing on tele w/underlying heart block * Encephalopathic, s/p HD yesterday per RN, does not follow commands, NGT out * INDWELLINGS: right IJ PermCath, PICC line placed on 05/22/2017. * LABS: 05/26/1751205/26/17512 Physical Exam Const: Frail 89 yo elder M, lethargic, responds to physical stimuli , non-verbal Head: Atraumatic , normocephalic Eyes: Normal Conjunctiva, anicteric ENT: Normal External Ears, Nose, Edentulous Neck: Full range of motion. Supple Resp: Clear to auscultation bilaterally Cardio: Regular rate and rhythm, no murmurs Abd: Soft, non tender, non distended. Normal bowel sounds Skin: No petechiae or rashes=> Large unstageable sacral decub Back: Deferred Ext: No cyanosis, or edema Neur: Lethargic, does not follow commands, no significant purposeful movements observed Psych: Encephalopathic ID ASSESSMENT 89 yo M PMHx CVA 1984 w/LLEXT hemiparesis, vascular dementia, dysphagia admit with: 1. Resolving Sepsis criteria w/hypotension, tachycardia, hypothermia, leukocytosis => RESOLVING 2. Status post enterococcal bacteremia=> Repeat blood cultures negative. * 2D ECHO (-) Vegetation * 05/15/17 BCx (+) ENTEROCOCCUS SPECIES ID ENTEROCOCCUS FAECALIS ENT SPS M.I.C. RX --------- --- AMPICILLIN <=2 S PENICILLIN-G 2 S VANCOMYCIN 1 S 3. Acute hypoxic respiratory distress => combination of pulmonary edema + probably aspiration event. 4. Healthcare-associated pneumonia. * CXR 05/22/17 * New moderate right pleural effusion with at least partial collapse of the right lower lobe. * Increased left moderate pleural effusion, with at least partial collapse of the left lower lobe. 5. End-stage renal disease, hemodialysis dependent. * Hx of renal transplant 6. Coronary artery disease with a history of permanent pacemaker placement. 7. Acute toxic metabolic encephalopathy on chronic vascular dementia * 05/23/17 CT Brain IMPRESSION: Marked atrophy. Microangiopathic ischemic change. Atherosclerosis. No intracranial hemorrhage. 8. Sacral Decub: Unstageable INVASIVES: R-IJ PermCath, PICC (05/22/17) ABX ALLERGIES: KNDA CURRENT ABX: TOTAL ABX DAY # 11=>Vanco IV + Merrem ID RECOMMENDATIONS 1. Continue IV ABX -> Line salvage attempt = continue Vanco IV for total 21 days 2. Fluid overload management by HD 3. Chem Code status noted. . . Problems: Consultation Date/Type/Reason Admit Date/Time May 15, 2017 at 20:02 Initial Consult Date 05/24/17 Type of Consultation: ID Referring Provider: SUNIL GARCIA Exam/Review of Systems Vital Signs Vitals Vital Signs Date Time Temp Pulse Resp B/P Pulse Ox O2 Delivery O2 Flow Rate FiO2 05/26/17 08:00 98.2 83 25 113/40 100 Nasal Cannula 2.0 05/25/17 02:25 30 Intake and Output 05/25/17 05/25/17 05/26/17 14:59 22:59 06:59 Intake Total 750 ml 430 ml 350 ml Output Total 1500 ml 0 ml 10 ml Balance -750 ml 430 ml 340 ml Results Result Diagram: 05/26/1751205/26/17512 Results 24 hrs Laboratory Tests Test 05/25/17 10:05 05/25/17 12:58 05/25/17 16:45 05/25/17 21:25 Bedside Glucose 136 100 90 92 Test 05/26/17 01:15 05/26/17 04:36 05/26/17 05:13 Bedside Glucose 83 91 White Blood Count 9.5 Red Blood Count 2.61 L Hemoglobin 7.2 L Hematocrit 22.5 L Mean Corpuscular Volume 86.2 Mean Corpuscular Hemoglobin 27.6 L Mean Corpuscular Hemoglobin Concent 32.0 Red Cell Distribution Width 18.5 H Platelet Count 77 L Mean Platelet Volume 11.9 H Neutrophils % 76.7 Lymphocytes % 10.0 L Monocytes % 9.8 Eosinophils % 2.7 Basophils % 0.3 Nucleated Red Blood Cells % 0.0 Neutrophils # 7.3 Lymphocytes # 1.0 Monocytes # 0.9 Eosinophils # 0.3 Basophils # 0.0 Nucleated Red Blood Cells # 0.0 Sodium Level 137 Potassium Level 3.8 Chloride Level 104 Carbon Dioxide Level 28 Anion Gap 9 Blood Urea Nitrogen 31 H Creatinine 3.50 H Glucose Level 74 Calcium Level 7.2 L Phosphorus Level 2.5 Magnesium Level 2.0 Medications Medications Current Medications Ondansetron HCl (Zofran Inj) 4 mg Q6H PRN IV NAUSEA AND/OR VOMITING; Start at 21:30 Acetaminophen (Tylenol Tab) 650 mg Q6H PRN PO PAIN LEVEL 1-3 OR FEVER Last administered on 05/25/17 05:41; Admin Dose 650 MG; Start 05/15/17 at 21:30 Docusate Sodium (Colace) 100 mg Q12H PRN PO CONSTIPATION; Start 05/15/17 at 21 :30 Bisacodyl (Dulcolax) 5 mg DAILY PRN PO CONSTIPATION; Start 05/15/17 at 21:30 Famotidine (Pepcid) 20 mg DAILY PO Last administered on 05/24/17 08:57; Admin Dose 20 MG; Start 05/16/17 at 09:00 Aspirin (Halfprin) 81 mg DAILY PO Last administered on 05/24/17 08:51; Admin Dose 81 MG; Start 05/16/17 at 09:00 Atorvastatin Calcium (Lipitor) 20 mg HS PO Last administered on 05/25/17 21: 26; Admin Dose 20 MG; Start 05/16/17 at 21:00 Donepezil HCl (Aricept) 5 mg DAILY PO Last administered on 05/24/17 08:52; Admin Dose 5 MG; Start 05/16/17 at 09:00 Folic Acid (Folic Acid) 1 mg DAILY PO Last administered on 05/24/17 08:53; Admin Dose 1 MG; Start 05/16/17 at 09:00 Loratadine (Claritin) 10 mg DAILY PO Last administered on 05/24/17 08:52; Admin Dose 10 MG; Start 05/16/17 at 09:00 Megestrol Acetate (Megace) 40 mg DAILY PO Last administered on 05/24/17 08:51 ; Admin Dose 40 MG; Start 05/16/17 at 09:00 Diagnostic Test (Pha) (Accu-Chek) 1 ea 02 XX Last administered on 05/24/17 01 :02; Admin Dose 1 EA; Start 05/16/17 at 02:00 Miscellaneous Information 1 ea NOTE XX ; Start 05/15/17 at 22:00 Glucose (Glutose) 15 gm Q15M PRN PO DECREASED GLUCOSE; Start 05/15/17 at 22:00 Glucose (Glutose) 22.5 gm Q15M PRN PO DECREASED GLUCOSE; Start 05/15/17 at 22: 00 Dextrose (D50w Syringe) 25 ml Q15M PRN IV DECREASED GLUCOSE; Start 05/15/17 at 22:00 Dextrose (D50w Syringe) 50 ml Q15M PRN IV DECREASED GLUCOSE; Start 05/15/17 at 22:00 Glucagon (Glucagen) 1 mg Q15M PRN IM DECREASED GLUCOSE; Start 05/15/17 at 22: 00 Glucose (Glutose) 15 gm Q15M PRN BUCCAL DECREASED GLUCOSE; Start 05/15/17 at 22:00 Sulfacetamide Sodium (Bleph-10 Oph Drop) 1 drop BID BOTH EYES Last administered on 05/25/17 21:26; Admin Dose 1 DROP; Start 05/16/17 at 21:00 Amiodarone HCl (Cordarone) 200 mg DAILY PO Last administered on 05/24/17 08: 51; Admin Dose 200 MG; Start 05/18/17 at 16:00 Collagenase 1 applic 1 applic DAILY TOP Last administered on 05/25/17 10:07; Admin Dose 1 APPLIC; Start 05/18/17 at 21:00 Vancomycin HCl (Vancocin) 250 ml @ 125 mls/hr Q96H IVPB Last administered on 05/24/17 16:32; Admin Dose 125 MLS/HR; Start 05/20/17 at 17:00 Insulin Aspart (Adult SC Insulin - Mild Algorithm)... Q4 SC Last administered on 05/23/17 01:20; Admin Dose 1 UNIT; Start 05/21/17 at 13:00 Phenylephrine HCl 40 mg/Dextrose 500 ml @ 75 mls/hr TITRATE IV Last administered on 05/23/17 00:08; Admin Dose 60 MLS/HR; Start 05/22/17 at 05:30 Sodium Chloride 1,000 ml @ 50 mls/hr Q20H IV Last administered on 05/25/17 21:37; Admin Dose 50 MLS/HR; Start 05/23/17 at 10:30 Meropenem/Sodium Chloride (Merrem 500mg/50 ml(Pmx)) 50 ml @ 100 mls/hr Q24H IVPB Last administered on 05/25/17 16:41; Admin Dose 100 MLS/HR; Start 05/23 at 16:00 Midodrine (Proamatine) 2.5 mg TID PO Last administered on 05/25/17 21:26; Admin Dose 2.5 MG; Start 05/25/17 at 13:00 VIJAY MEZA NP May 26, 2017 09:35
[2017-05-26] MEDS: LORATADINE 10 MG TAB PO SCH (11:13)
--- NOTE | 2017-05-26 11:47 | PN ---
Date/Time of Note Date/Time of Note DATE: 05/26/17 TIME: 11:45 Assessment/Plan VTE Prophylaxis VTE Prophylaxis Intervention: SCD's Lines/Catheters IV Catheter Type (from Nrs): PICC Line Central line still needed: Yes Assessment/Plan Chief Complaint/Hosp Course Assessment/Plan #. Septic shock secondary to bacteremia, resolving - Patient was transferred to ICU for pressor support , Patient's BP highly labile, off IV pressors, on midodrine low dose - Patient had +blood cultures for enterococcus - ID consultation placed and will discuss if believe permacath source of infection and needing to be removed, currently blood cultures are negative. - ECHO ordered to rule out endocarditis, no vegetations seen - Repeat blood cultures ordered as well, pending, negative thus far - On Vancomycin, merrem #hypotension - labile, depends on HD - midodrine, patient's son understands this may be harmful in the long run, but wishes to risk the medication to keep patient's BP elevated. #encephalopathy -Likely baseline, no change -this level of dementia/encephalopathy was seen previously a few weeks ago -repeat CT not showing any acute issues #. Hyponatremia, resolved - Will continue to monitor - Urine studies not possible 2/2 no urine production -? volume overload/renal failure/HD -tube feeds with water flush, Iv fluids, monitor # Anemia, chronic, CKD related, s/p transfusion - remains stable - likely 2/2 chronic disease and repeated daily blood draws - Continue to monitor and transfuse if <7 #. ESRD, DD, on HD, electrolyte abnormalities - Nephrology on board and consultation appreciated - Will need to address removal of permacath and placement temporary line for HD if ID suspicious for permacath infection source. However, currently cultures are negative. - Discussed with son the effects HD has been on his father but still wants to continue. Was asking if can be done twice a week instead and told him to address with his [employer] Installer. #. fail to thrive, moderate malnutrition with hypoalbuminemia - Unlikely to be able to feed himself. PEG tube placed yesterday #. paroxysmal atrial fibrillation, sinus rhythm, not a candidate for anticoagulant - Cardiology on board and consultation appreciated. HR controlled #. history of cerebrovascular accident #. aortic stenosis #. sick sinus syndrome status post permanent pacemaker - pacer interrogated and shows normal pacing function #. dyslipidemia, on statin #. dementia, chronic, stable #. Disposition - Continue monitoring patient in ICU - patient's BP labile, if stable, will downgrade to tele >40 minutes of critical care time spent with patient. Problems: Subjective 24 Hr Interval Summary Free Text/Dictation no acute changes, successful placement of PEG Exam/Review of Systems Vital Signs Vitals Vital Signs Date Time Temp Pulse Resp B/P Pulse Ox O2 Delivery O2 Flow Rate FiO2 05/26/17 11:00 102 13 101/36 98 Nasal Cannula 2.0 05/26/17 08:00 98.2 05/25/17 02:25 30 Intake and Output 05/25/17 05/25/17 05/26/17 15:00 23:00 07:00 Intake Total 900 ml 280 ml 300 ml Output Total 1500 ml 0 ml 10 ml Balance -600 ml 280 ml 290 ml Exam General: frail appearing, NAD, lethargic but arousable HEENT: Atraumatic, normocephalic. The pupils are pinpoint. Neck: Supple with full range of motion. Lungs: Coarse breath sounds bilaterally, no wheezes Heart: Normal S1-S2, regular rate, irregularly irregular rhythm Abdomen: Soft , nontender, nondistended , bowel sounds are present. No guarding no rebound tenderness Extremities: +pedal edema b/l. Normal to inspection, no cyanosis Neuro: follows minimal command, moves all extremities spontaneously Skin: Sacral skin wound, multiple other pressure wounds Results Result Diagram: 05/26/17 0513 05/26/17 0513 Results 24 hrs Laboratory Tests Test 05/25/17 12:58 05/25/17 16:45 05/25/17 21:25 05/26/17 01:15 Bedside Glucose 100 90 92 83 Test 05/26/17 04:36 05/26/17 05:13 05/26/17 09:48 Bedside Glucose 91 81 White Blood Count 9.5 Red Blood Count 2.61 L Hemoglobin 7.2 L Hematocrit 22.5 L Mean Corpuscular Volume 86.2 Mean Corpuscular Hemoglobin 27.6 L Mean Corpuscular Hemoglobin Concent 32.0 Red Cell Distribution Width 18.5 H Platelet Count 77 L Mean Platelet Volume 11.9 H Neutrophils % 76.7 Lymphocytes % 10.0 L Monocytes % 9.8 Eosinophils % 2.7 Basophils % 0.3 Nucleated Red Blood Cells % 0.0 Neutrophils # 7.3 Lymphocytes # 1.0 Monocytes # 0.9 Eosinophils # 0.3 Basophils # 0.0 Nucleated Red Blood Cells # 0.0 Sodium Level 137 Potassium Level 3.8 Chloride Level 104 Carbon Dioxide Level 28 Anion Gap 9 Blood Urea Nitrogen 31 H Creatinine 3.50 H Glucose Level 74 Calcium Level 7.2 L Phosphorus Level 2.5 Magnesium Level 2.0 Medications Medications Current Medications Ondansetron HCl (Zofran Inj) 4 mg Q6H PRN IV NAUSEA AND/OR VOMITING; Start at 21:30 Acetaminophen (Tylenol Tab) 650 mg Q6H PRN PO PAIN LEVEL 1-3 OR FEVER Last administered on 05/25/17 05:41; Admin Dose 650 MG; Start 05/15/17 at 21:30 Docusate Sodium (Colace) 100 mg Q12H PRN PO CONSTIPATION; Start 05/15/17 at 21 :30 Bisacodyl (Dulcolax) 5 mg DAILY PRN PO CONSTIPATION; Start 05/15/17 at 21:30 Famotidine (Pepcid) 20 mg DAILY PO Last administered on 05/26/17 09:28; Admin Dose 20 MG; Start 05/16/17 at 09:00 Aspirin (Halfprin) 81 mg DAILY PO Last administered on 05/26/17 09:28; Admin Dose 81 MG; Start 05/16/17 at 09:00 Atorvastatin Calcium (Lipitor) 20 mg HS PO Last administered on 05/25/17 21: 26; Admin Dose 20 MG; Start 05/16/17 at 21:00 Donepezil HCl (Aricept) 5 mg DAILY PO Last administered on 05/26/17 09:28; Admin Dose 5 MG; Start 05/16/17 at 09:00 Folic Acid (Folic Acid) 1 mg DAILY PO Last administered on 05/26/17 09:28; Admin Dose 1 MG; Start 05/16/17 at 09:00 Loratadine (Claritin) 10 mg DAILY PO Last administered on 05/26/17 11:13; Admin Dose 10 MG; Start 05/16/17 at 09:00 Megestrol Acetate (Megace) 40 mg DAILY PO Last administered on 05/26/17 09:28 ; Admin Dose 40 MG; Start 05/16/17 at 09:00 Diagnostic Test (Pha) (Accu-Chek) 1 ea 02 XX Last administered on 05/24/17 01 :02; Admin Dose 1 EA; Start 05/16/17 at 02:00 Miscellaneous Information 1 ea NOTE XX ; Start 05/15/17 at 22:00 Glucose (Glutose) 15 gm Q15M PRN PO DECREASED GLUCOSE; Start 05/15/17 at 22:00 Glucose (Glutose) 22.5 gm Q15M PRN PO DECREASED GLUCOSE; Start 05/15/17 at 22: 00 Dextrose (D50w Syringe) 25 ml Q15M PRN IV DECREASED GLUCOSE; Start 05/15/17 at 22:00 Dextrose (D50w Syringe) 50 ml Q15M PRN IV DECREASED GLUCOSE; Start 05/15/17 at 22:00 Glucagon (Glucagen) 1 mg Q15M PRN IM DECREASED GLUCOSE; Start 05/15/17 at 22: 00 Glucose (Glutose) 15 gm Q15M PRN BUCCAL DECREASED GLUCOSE; Start 05/15/17 at 22:00 Sulfacetamide Sodium (Bleph-10 Oph Drop) 1 drop BID BOTH EYES Last administered on 05/26/17 09:26; Admin Dose 1 DROP; Start 05/16/17 at 21:00 Amiodarone HCl (Cordarone) 200 mg DAILY PO Last administered on 05/26/17 09: 27; Admin Dose 200 MG; Start 05/18/17 at 16:00 Collagenase 1 applic 1 applic DAILY TOP Last administered on 05/26/17 09:26; Admin Dose 1 APPLIC; Start 05/18/17 at 21:00 Vancomycin HCl (Vancocin) 250 ml @ 125 mls/hr Q96H IVPB Last administered on 05/24/17 16:32; Admin Dose 125 MLS/HR; Start 05/20/17 at 17:00 Insulin Aspart (Adult SC Insulin - Mild Algorithm)... Q4 SC Last administered on 05/23/17 01:20; Admin Dose 1 UNIT; Start 05/21/17 at 13:00 Phenylephrine HCl 40 mg/Dextrose 500 ml @ 75 mls/hr TITRATE IV Last administered on 05/23/17 00:08; Admin Dose 60 MLS/HR; Start 05/22/17 at 05:30 Meropenem/Sodium Chloride (Merrem 500mg/50 ml(Pmx)) 50 ml @ 100 mls/hr Q24H IVPB Last administered on 05/25/17 16:41; Admin Dose 100 MLS/HR; Start 05/23 at 16:00 Midodrine (Proamatine) 2.5 mg TID PO Last administered on 05/26/17 09:27; Admin Dose 2.5 MG; Start 05/25/17 at 13:00 TYLER MADDEN May 26, 2017 11:47
--- NOTE | 2017-05-26 13:48 | PN ---
Date/Time of Note Date/Time of Note DATE: 05/26/17 TIME: 13:46 Assessment/Plan VTE Prophylaxis VTE Prophylaxis Intervention: SCD's Lines/Catheters IV Catheter Type (from Nrsg): PICC Line Central line still needed: Yes (medication) Assessment/Plan Chief Complaint/Hosp Course Summary Assessment and Plan: Assessment: Fail to thrive, malnutrition with hypoalbuminemia, Anemia, chronic, CKD related, s/p transfusion ESRD, on HD Hypotension secondary to dehydration and/or possible early sepsis Lactic acidosis Suspected healthcare associated pneumonia Paroxysmal atrial fibrillation- controlled currently SR History of cerebrovascular accident. Aortic stenosis. Sick sinus syndrome with permanent pacemaker Dyslipidemia, on statin. Dementia/chronic Plan: Continue TF until reach goal. Continue supportive care Patient seen in collaboration with Dr. Rosado Subjective: Course reviewed with nursing staff Patient interviewed and examined All labs, imaging and other results reviewed No change s/p peg, pt tolerating TF well PHYSICAL EXAMINATION: GENERAL: Well developed, well nourished, alert & oriented x 3, in no acute distress SKIN: No lesions, no stigmata chronic liver disease, no evidence of bleeding diathesis, peg in place LYMPHATIC: No palpable lymphadenopathy. HEAD: Normocephalic, atraumatic, no tenderness. EYES: Pupils equal reactive to light and accommodation, full extraocular movements, sclera clear, non-icteric, no discharge. EARS/NOSE AND THROAT: Ears normal, nose normal, oropharynx normal, oral membranes well hydrated without lesions. NECK: Supple, no masses, thyroid normal, JVP within normal limits, carotids normal without bruits. CHEST: Inspection within normal limits. CARDIOVASCULAR: Heart: Regular rate and rhythm, n RESPIRATORY: Lungs clear to auscultation and percussion, no wheezing, no rubs GASTROINTESTINAL AND LIVER: Abdomen: Soft, non tenderness, non-distended, no hernias, no masses, no organomegaly, no ascites, no guarding, no rebound tenderness, normoactive bowel sounds. Rectal: Deferred. GENITOURINARY: Male genitalia within normal limits. Problems: Exam/Review of Systems Vital Signs Vitals Vital Signs Date Time Temp Pulse Resp B/P Pulse Ox O2 Delivery O2 Flow Rate FiO2 05/26/17 13:00 84 9 95/47 100 Nasal Cannula 2.0 05/26/17 12:00 98.0 05/25/17 02:25 30 Intake and Output 05/25/17 05/25/17 05/26/17 15:00 23:00 07:00 Intake Total 900 ml 280 ml 530 ml Output Total 1500 ml 0 ml 10 ml Balance -600 ml 280 ml 520 ml Results Result Diagram: 05/26/17 0513 05/26/17 0513 Results 24 hrs Laboratory Tests Test 05/25/17 16:45 05/25/17 21:25 05/26/17 01:15 05/26/17 04:36 Bedside Glucose 90 92 83 91 Test 05/26/17 05:13 05/26/17 09:48 White Blood Count 9.5 Red Blood Count 2.61 L Hemoglobin 7.2 L Hematocrit 22.5 L Mean Corpuscular Volume 86.2 Mean Corpuscular Hemoglobin 27.6 L Mean Corpuscular Hemoglobin Concent 32.0 Red Cell Distribution Width 18.5 H Platelet Count 77 L Mean Platelet Volume 11.9 H Neutrophils % 76.7 Lymphocytes % 10.0 L Monocytes % 9.8 Eosinophils % 2.7 Basophils % 0.3 Nucleated Red Blood Cells % 0.0 Neutrophils # 7.3 Lymphocytes # 1.0 Monocytes # 0.9 Eosinophils # 0.3 Basophils # 0.0 Nucleated Red Blood Cells # 0.0 Sodium Level 137 Potassium Level 3.8 Chloride Level 104 Carbon Dioxide Level 28 Anion Gap 9 Blood Urea Nitrogen 31 H Creatinine 3.50 H Glucose Level 74 Calcium Level 7.2 L Phosphorus Level 2.5 Magnesium Level 2.0 Bedside Glucose 81 Medications Medications Current Medications Ondansetron HCl (Zofran Inj) 4 mg Q6H PRN IV NAUSEA AND/OR VOMITING; Start at 21:30 Acetaminophen (Tylenol Tab) 650 mg Q6H PRN PO PAIN LEVEL 1-3 OR FEVER Last administered on 05/25/17 05:41; Admin Dose 650 MG; Start 05/15/17 at 21:30 Docusate Sodium (Colace) 100 mg Q12H PRN PO CONSTIPATION; Start 05/15/17 at 21 :30 Bisacodyl (Dulcolax) 5 mg DAILY PRN PO CONSTIPATION; Start 05/15/17 at 21:30 Famotidine (Pepcid) 20 mg DAILY PO Last administered on 05/26/17 09:28; Admin Dose 20 MG; Start 05/16/17 at 09:00 Aspirin (Halfprin) 81 mg DAILY PO Last administered on 05/26/17 09:28; Admin Dose 81 MG; Start 05/16/17 at 09:00 Atorvastatin Calcium (Lipitor) 20 mg HS PO Last administered on 05/25/17 21: 26; Admin Dose 20 MG; Start 05/16/17 at 21:00 Donepezil HCl (Aricept) 5 mg DAILY PO Last administered on 05/26/17 09:28; Admin Dose 5 MG; Start 05/16/17 at 09:00 Folic Acid (Folic Acid) 1 mg DAILY PO Last administered on 05/26/17 09:28; Admin Dose 1 MG; Start 05/16/17 at 09:00 Loratadine (Claritin) 10 mg DAILY PO Last administered on 05/26/17 11:13; Admin Dose 10 MG; Start 05/16/17 at 09:00 Megestrol Acetate (Megace) 40 mg DAILY PO Last administered on 05/26/17 09:28 ; Admin Dose 40 MG; Start 05/16/17 at 09:00 Diagnostic Test (Pha) (Accu-Chek) 1 ea 02 XX Last administered on 05/24/17 01 :02; Admin Dose 1 EA; Start 05/16/17 at 02:00 Miscellaneous Information 1 ea NOTE XX ; Start 05/15/17 at 22:00 Glucose (Glutose) 15 gm Q15M PRN PO DECREASED GLUCOSE; Start 05/15/17 at 22:00 Glucose (Glutose) 22.5 gm Q15M PRN PO DECREASED GLUCOSE; Start 05/15/17 at 22: 00 Dextrose (D50w Syringe) 25 ml Q15M PRN IV DECREASED GLUCOSE; Start 05/15/17 at 22:00 Dextrose (D50w Syringe) 50 ml Q15M PRN IV DECREASED GLUCOSE; Start 05/15/17 at 22:00 Glucagon (Glucagen) 1 mg Q15M PRN IM DECREASED GLUCOSE; Start 05/15/17 at 22: 00 Glucose (Glutose) 15 gm Q15M PRN BUCCAL DECREASED GLUCOSE; Start 05/15/17 at 22:00 Sulfacetamide Sodium (Bleph-10 Oph Drop) 1 drop BID BOTH EYES Last administered on 05/26/17 09:26; Admin Dose 1 DROP; Start 05/16/17 at 21:00 Amiodarone HCl (Cordarone) 200 mg DAILY PO Last administered on 05/26/17 09: 27; Admin Dose 200 MG; Start 05/18/17 at 16:00 Collagenase 1 applic 1 applic DAILY TOP Last administered on 05/26/17 09:26; Admin Dose 1 APPLIC; Start 05/18/17 at 21:00 Vancomycin HCl (Vancocin) 250 ml @ 125 mls/hr Q96H IVPB Last administered on 05/24/17 16:32; Admin Dose 125 MLS/HR; Start 05/20/17 at 17:00 Insulin Aspart (Adult SC Insulin - Mild Algorithm)... Q4 SC Last administered on 05/23/17 01:20; Admin Dose 1 UNIT; Start 05/21/17 at 13:00 Phenylephrine HCl 40 mg/Dextrose 500 ml @ 75 mls/hr TITRATE IV Last administered on 05/23/17 00:08; Admin Dose 60 MLS/HR; Start 05/22/17 at 05:30 Meropenem/Sodium Chloride (Merrem 500mg/50 ml(Pmx)) 50 ml @ 100 mls/hr Q24H IVPB Last administered on 05/25/17 16:41; Admin Dose 100 MLS/HR; Start 05/23 at 16:00 Midodrine (Proamatine) 2.5 mg TID PO Last administered on 05/26/17 09:27; Admin Dose 2.5 MG; Start 05/25/17 at 13:00 DAISY ANTONIO May 26, 2017 13:48
[2017-05-26] MEDS: MEROPENEM 500MG/50 ML (PMX) 50 ML IVPB SCH (18:29)
[2017-05-26] MEDS: ATORVASTATIN 20 MG TAB PO SCH (20:09)
[2017-05-27] VITALS (21 sets, daily range): BP systolic 86–152; BP diastolic 30–92; PULSE 64–104; RESP 11–23
[2017-05-27] MEDS: Insulin NOVOLOG SS MILD Algorithm (NPO/TPN/ENTERAL FEEDS) SC SCH ×6 (01:00→21:00)
[2017-05-27] MEDS: ACCU-CHEK XX SCH (01:05)
[2017-05-27] MEDS: ACETAMINOPHEN 325 MG TAB PO PRN (02:14)
--- NOTE | 2017-05-27 09:41 | RADRPT ---
PROCEDURE: US Lower extremity Venous. CLINICAL INDICATION: Lower extremity pain and edema TECHNIQUE: Multiple sonographic images of the bilateral lower extremity deep venous system was obt ained utilizing grayscale, color-flow, compressive sonography and doppler imaging with augmentation. The images were reviewed on a PACS workstation. COMPARISON: May 01, 2017 FINDINGS: There is normal compressibility and flow within the bilateral common femoral, deep femoral, superfic ial femoral and popliteal veins. The deep veins the calf were incompletely visualized. Cystic struct ure IMPRESSION: No sonographic evidence for deep venous thrombosis in the bilateral lower extremities. Physician Brenda Date Time Electronically viewed and signed by Physician Brenda on 05/27/2017 09:40 ML/
[2017-05-27] MEDS: DONEPEZIL 5 MG TAB PO SCH (09:54)
[2017-05-27] MEDS: ASPIRIN (EC) 81 MG TAB PO SCH (09:54)
[2017-05-27] MEDS: AMIODARONE 200 MG TAB PO SCH (09:54)
[2017-05-27] MEDS: FAMOTIDINE 20 MG TAB PO SCH (09:54)
[2017-05-27] MEDS: FOLIC ACID 1 MG TAB PO SCH (09:54)
[2017-05-27] MEDS: MEGESTROL 40 MG TAB PO SCH (09:55)
[2017-05-27] MEDS: COLLAGENASE 30 GM TUBE TOP SCH ×2 (09:55→22:39)
[2017-05-27] MEDS: BALSAM PERU/CASTOR OIL 60 GM TUBE TOP SCH ×2 (09:55→22:38)
[2017-05-27] MEDS: MIDODRINE 2.5 MG TAB PO SCH ×3 (09:55→21:25)
[2017-05-27] MEDS: LORATADINE 10 MG TAB PO SCH (09:55)
[2017-05-27] MEDS: SULFACETAMIDE 10% 15 ML OPH BOTH EYES SCH ×2 (09:56→22:40)
--- NOTE | 2017-05-27 12:31 | PN ---
Date/Time of Note Date/Time of Note DATE: 05/27/17 TIME: 12:29 Assessment/Plan VTE Prophylaxis VTE Prophylaxis Intervention: SCD's Lines/Catheters IV Catheter Type (from Nrs): PICC Line Central line still needed: Yes Assessment/Plan Chief Complaint/Hosp Course Assessment/Plan #. Septic shock secondary to bacteremia, resolving - Patient was transferred to ICU for pressor support , Patient's BP highly labile, off IV pressors, on midodrine low dose - Patient had +blood cultures for enterococcus - ID consultation placed and will discuss if believe permacath source of infection and needing to be removed, currently blood cultures are negative. - ECHO ordered to rule out endocarditis, no vegetations seen - Repeat blood cultures ordered as well, pending, negative thus far - On Vancomycin, merrem #hypotension - labile, depends on HD - midodrine, patient's son understands this may be harmful in the long run, but wishes to risk the medication to keep patient's BP elevated. #encephalopathy -Likely baseline, no change -this level of dementia/encephalopathy was seen previously a few weeks ago -repeat CT not showing any acute issues #. Hyponatremia, resolved - Will continue to monitor - Urine studies not possible 2/2 no urine production -? volume overload/renal failure/HD -tube feeds with water flush, Iv fluids, monitor # Anemia, chronic, CKD related, s/p transfusion - remains stable - likely 2/2 chronic disease and repeated daily blood draws - Continue to monitor and transfuse if <7 #. ESRD, DD, on HD, electrolyte abnormalities - Nephrology on board and consultation appreciated - Will need to address removal of permacath and placement temporary line for HD if ID suspicious for permacath infection source. However, currently cultures are negative. - Discussed with son the effects HD has been on his father but still wants to continue. Was asking if can be done twice a week instead and told him to address with his Industrial Psychology Teacher. #. fail to thrive, moderate malnutrition with hypoalbuminemia - Unlikely to be able to feed himself. PEG tube placed yesterday #. paroxysmal atrial fibrillation, sinus rhythm, not a candidate for anticoagulant - Cardiology on board and consultation appreciated. HR controlled #. history of cerebrovascular accident #. aortic stenosis #. sick sinus syndrome status post permanent pacemaker - pacer interrogated and shows normal pacing function #. dyslipidemia, on statin #. dementia, chronic, stable #. Disposition - downgrade to tele today - Will need to finalize duration of therapy with ID, then send to SNF, patient' s family not interested in hospice at this time. titrate midodrine to keep patient's BP at safe levels. PEG tube placed. >40 minutes of critical care time spent with patient. Problems: Exam/Review of Systems Vital Signs Vitals Vital Signs Date Time Temp Pulse Resp B/P Pulse Ox O2 Delivery O2 Flow Rate FiO2 05/27/17 09:00 69 15 102/59 100 Nasal Cannula 2.0 05/27/17 08:00 98.5 05/25/17 02:25 30 Intake and Output 05/26/17 05/26/17 05/27/17 15:00 23:00 07:00 Intake Total 470 ml 430 ml 240 ml Balance 470 ml 430 ml 240 ml Exam General: frail appearing, NAD, lethargic but arousable HEENT: Atraumatic, normocephalic. The pupils are pinpoint. Neck: Supple with full range of motion. Lungs: Coarse breath sounds bilaterally, no wheezes Heart: Normal S1-S2, regular rate, irregularly irregular rhythm Abdomen: Soft , nontender, nondistended , bowel sounds are present. No guarding no rebound tenderness Extremities: +pedal edema b/l. Normal to inspection, no cyanosis Neuro: follows minimal command, moves all extremities spontaneously Skin: Sacral skin wound, multiple other pressure wounds Results Result Diagram: 05/27/17 0611 05/26/17 0513 Results 24 hrs Laboratory Tests Test 05/26/17 13:50 05/26/17 18:24 05/26/17 20:09 05/27/17 00:46 Bedside Glucose 92 121 109 120 Test 05/27/17 05:55 05/27/17 06:11 05/27/17 10:20 Bedside Glucose 117 121 Hemoglobin 7.9 L Hematocrit 25.0 L Medications Medications Current Medications Ondansetron HCl (Zofran Inj) 4 mg Q6H PRN IV NAUSEA AND/OR VOMITING; Start at 21:30 Acetaminophen (Tylenol Tab) 650 mg Q6H PRN PO PAIN LEVEL 1-3 OR FEVER Last administered on 05/27/17t 02:14; Admin Dose 650 MG; Start 05/15/17 at 21:30 Docusate Sodium (Colace) 100 mg Q12H PRN PO CONSTIPATION; Start 05/15/17 at 21 :30 Bisacodyl (Dulcolax) 5 mg DAILY PRN PO CONSTIPATION; Start 05/15/17 at 21:30 Famotidine (Pepcid) 20 mg DAILY PO Last administered on 05/27/17 09:54; Admin Dose 20 MG; Start 05/16/17 at 09:00 Aspirin (Halfprin) 81 mg DAILY PO Last administered on 05/27/17 09:54; Admin Dose 81 MG; Start 05/16/17 at 09:00 Atorvastatin Calcium (Lipitor) 20 mg HS PO Last administered on 05/26/17 20: 09; Admin Dose 20 MG; Start 05/16/17 at 21:00 Donepezil HCl (Aricept) 5 mg DAILY PO Last administered on 05/27/17 09:54; Admin Dose 5 MG; Start 05/16/17 at 09:00 Folic Acid (Folic Acid) 1 mg DAILY PO Last administered on 05/27/17 09:54; Admin Dose 1 MG; Start 05/16/17 at 09:00 Loratadine (Claritin) 10 mg DAILY PO Last administered on 05/27/17 09:55; Admin Dose 10 MG; Start 05/16/17 at 09:00 Megestrol Acetate (Megace) 40 mg DAILY PO Last administered on 05/27/17 09:55 ; Admin Dose 40 MG; Start 05/16/17 at 09:00 Diagnostic Test (Pha) (Accu-Chek) 1 ea 02 XX Last administered on 05/24/17 01 :02; Admin Dose 1 EA; Start 05/16/17 at 02:00 Miscellaneous Information 1 ea NOTE XX ; Start 05/15/17 at 22:00 Glucose (Glutose) 15 gm Q15M PRN PO DECREASED GLUCOSE; Start 05/15/17 at 22:00 Glucose (Glutose) 22.5 gm Q15M PRN PO DECREASED GLUCOSE; Start 05/15/17 at 22: 00 Dextrose (D50w Syringe) 25 ml Q15M PRN IV DECREASED GLUCOSE; Start 05/15/17 at 22:00 Dextrose (D50w Syringe) 50 ml Q15M PRN IV DECREASED GLUCOSE; Start 05/15/17 at 22:00 Glucagon (Glucagen) 1 mg Q15M PRN IM DECREASED GLUCOSE; Start 05/15/17 at 22: 00 Glucose (Glutose) 15 gm Q15M PRN BUCCAL DECREASED GLUCOSE; Start 05/15/17 at 22:00 Sulfacetamide Sodium (Bleph-10 Oph Drop) 1 drop BID BOTH EYES Last administered on 05/27/17 09:56; Admin Dose 1 DROP; Start 05/16/17 at 21:00 Amiodarone HCl (Cordarone) 200 mg DAILY PO Last administered on 05/27/17 09: 54; Admin Dose 200 MG; Start 05/18/17 at 16:00 Collagenase 1 applic 1 applic DAILY TOP Last administered on 05/27/17 09:55; Admin Dose 1 APPLIC; Start 05/18/17 at 21:00 Vancomycin HCl (Vancocin) 250 ml @ 125 mls/hr Q96H IVPB Last administered on 05/24/17 16:32; Admin Dose 125 MLS/HR; Start 05/20/17 at 17:00 Insulin Aspart (Adult SC Insulin - Mild Algorithm)... Q4 SC Last administered on 05/23/17 01:20; Admin Dose 1 UNIT; Start 05/21/17 at 13:00 Meropenem/Sodium Chloride (Merrem 500mg/50 ml(Pmx)) 50 ml @ 100 mls/hr Q24H IVPB Last administered on 05/26/17 18:29; Admin Dose 100 MLS/HR; Start 05/23 at 16:00 Midodrine (Proamatine) 2.5 mg TID PO Last administered on 05/27/17 09:55; Admin Dose 2.5 MG; Start 05/25/17 at 13:00 TYLER MADDEN May 27, 2017 12:31
--- NOTE | 2017-05-27 15:43 | PN ---
Date/Time of Note Date/Time of Note DATE: 05/27/17 TIME: 15:42 Assessment/Plan VTE Prophylaxis VTE Prophylaxis Intervention: SCD's Lines/Catheters IV Catheter Type (from Nrs): PICC Line Central line still needed: Yes (Medication) Assessment/Plan Chief Complaint/Hosp Course Summary Assessment and Plan: Assessment: Fail to thrive, malnutrition with hypoalbuminemia, Anemia, chronic, CKD related, s/p transfusion ESRD, on HD Hypotension secondary to dehydration and/or possible early sepsis Lactic acidosis Suspected healthcare associated pneumonia Paroxysmal atrial fibrillation- controlled currently SR History of cerebrovascular accident. Aortic stenosis. Sick sinus syndrome with permanent pacemaker Dyslipidemia, on statin. Dementia/chronic Plan: Tolerating TF well, TF at goal PEG care Continue supportive care Patient seen in collaboration with Dr. Rosado Subjective: Course reviewed with nursing staff Patient interviewed and examined All labs, imaging and other results reviewed Patient remained stable tolerating tube feeding well currently at goal. Will be transferred from ICU PHYSICAL EXAMINATION: GENERAL: Well developed, well nourished, alert & oriented x 3, in no acute distress SKIN: No lesions, no stigmata chronic liver disease, no evidence of bleeding diathesis, peg in place LYMPHATIC: No palpable lymphadenopathy. HEAD: Normocephalic, atraumatic, no tenderness. EYES: Pupils equal reactive to light and accommodation, full extraocular movements, sclera clear, non-icteric, no discharge. EARS/NOSE AND THROAT: Ears normal, nose normal, oropharynx normal, oral membranes well hydrated without lesions. NECK: Supple, no masses, thyroid normal, JVP within normal limits, carotids normal without bruits. CHEST: Inspection within normal limits. CARDIOVASCULAR: Heart: Regular rate and rhythm, n RESPIRATORY: Lungs clear to auscultation and percussion, no wheezing, no rubs GASTROINTESTINAL AND LIVER: Abdomen: Soft, non tenderness, non-distended, no hernias, no masses, no organomegaly, no ascites, no guarding, no rebound tenderness, normoactive bowel sounds. Rectal: Deferred. GENITOURINARY: Male genitalia within normal limits. Problems: Exam/Review of Systems Vital Signs Vitals Vital Signs Date Time Temp Pulse Resp B/P Pulse Ox O2 Delivery O2 Flow Rate FiO2 05/27/17 12:00 98.2 69 20 94/42 100 Nasal Cannula 2.0 05/25/17 02:25 30 Intake and Output 05/26/17 05/26/17 05/27/17 15:00 23:00 07:00 Intake Total 470 ml 430 ml 240 ml Balance 470 ml 430 ml 240 ml Results Result Diagram: 05/27/17 0611 05/26/17 0513 Results 24 hrs Laboratory Tests Test 05/26/17 18:24 05/26/17 20:09 05/27/17 00:46 05/27/17 05:55 Bedside Glucose 121 109 120 117 Test 05/27/17 06:11 05/27/17 10:20 05/27/17 13:34 Hemoglobin 7.9 L Hematocrit 25.0 L Bedside Glucose 121 131 Medications Medications Current Medications Ondansetron HCl (Zofran Inj) 4 mg Q6H PRN IV NAUSEA AND/OR VOMITING; Start at 21:30 Acetaminophen (Tylenol Tab) 650 mg Q6H PRN PO PAIN LEVEL 1-3 OR FEVER Last administered on 05/27/17 02:14; Admin Dose 650 MG; Start 05/15/17 at 21:30 Docusate Sodium (Colace) 100 mg Q12H PRN PO CONSTIPATION; Start 05/15/17 at 21 :30 Bisacodyl (Dulcolax) 5 mg DAILY PRN PO CONSTIPATION; Start 05/15/17 at 21:30 Famotidine (Pepcid) 20 mg DAILY PO Last administered on 05/27/17 09:54; Admin Dose 20 MG; Start 05/16/17 at 09:00 Aspirin (Halfprin) 81 mg DAILY PO Last administered on 05/27/17 09:54; Admin Dose 81 MG; Start 05/16/17 at 09:00 Atorvastatin Calcium (Lipitor) 20 mg HS PO Last administered on 05/26/17 20: 09; Admin Dose 20 MG; Start 05/16/17 at 21:00 Donepezil HCl (Aricept) 5 mg DAILY PO Last administered on 05/27/17 09:54; Admin Dose 5 MG; Start 05/16/17 at 09:00 Folic Acid (Folic Acid) 1 mg DAILY PO Last administered on 05/27/17 09:54; Admin Dose 1 MG; Start 05/16/17 at 09:00 Loratadine (Claritin) 10 mg DAILY PO Last administered on 05/27/17 09:55; Admin Dose 10 MG; Start 05/16/17 at 09:00 Megestrol Acetate (Megace) 40 mg DAILY PO Last administered on 05/27/17 09:55 ; Admin Dose 40 MG; Start 05/16/17 at 09:00 Diagnostic Test (Pha) (Accu-Chek) 1 ea 02 XX Last administered on 05/24/17 01 :02; Admin Dose 1 EA; Start 05/16/17 at 02:00 Miscellaneous Information 1 ea NOTE XX ; Start 05/15/17 at 22:00 Glucose (Glutose) 15 gm Q15M PRN PO DECREASED GLUCOSE; Start 05/15/17 at 22:00 Glucose (Glutose) 22.5 gm Q15M PRN PO DECREASED GLUCOSE; Start 05/15/17 at 22: 00 Dextrose (D50w Syringe) 25 ml Q15M PRN IV DECREASED GLUCOSE; Start 05/15/17 at 22:00 Dextrose (D50w Syringe) 50 ml Q15M PRN IV DECREASED GLUCOSE; Start 05/15/17 at 22:00 Glucagon (Glucagen) 1 mg Q15M PRN IM DECREASED GLUCOSE; Start 05/15/17 at 22: 00 Glucose (Glutose) 15 gm Q15M PRN BUCCAL DECREASED GLUCOSE; Start 05/15/17 at 22:00 Sulfacetamide Sodium (Bleph-10 Oph Drop) 1 drop BID BOTH EYES Last administered on 05/27/17 09:56; Admin Dose 1 DROP; Start 05/16/17 at 21:00 Amiodarone HCl (Cordarone) 200 mg DAILY PO Last administered on 05/27/17 09: 54; Admin Dose 200 MG; Start 05/18/17 at 16:00 Collagenase 1 applic 1 applic DAILY TOP Last administered on 05/27/17 09:55; Admin Dose 1 APPLIC; Start 05/18/17 at 21:00 Vancomycin HCl (Vancocin) 250 ml @ 125 mls/hr Q96H IVPB Last administered on 05/24/17 16:32; Admin Dose 125 MLS/HR; Start 05/20/17 at 17:00 Insulin Aspart (Adult SC Insulin - Mild Algorithm)... Q4 SC Last administered on 05/23/17 01:20; Admin Dose 1 UNIT; Start 05/21/17 at 13:00 Meropenem/Sodium Chloride (Merrem 500mg/50 ml(Pmx)) 50 ml @ 100 mls/hr Q24H IVPB Last administered on 05/26/17 18:29; Admin Dose 100 MLS/HR; Start 05/23 at 16:00 Midodrine (Proamatine) 2.5 mg TID PO Last administered on 05/27/17 13:36; Admin Dose 2.5 MG; Start 05/25/17 at 13:00 Miscellaneous Information (*Rx Drug Level Order Reminder*) VANCOMYCIN TROUGH AT 1600 ONCE ONCE XX ; Start 05/28/17 at 16:00; Stop 05/28/17 at 16:01 DAISY ANTONIO May 27, 2017 15:43
[2017-05-27] MEDS: MEROPENEM 500MG/50 ML (PMX) 50 ML IVPB SCH (16:45)
--- NOTE | 2017-05-27 18:21 | CONS ---
Date/Time of Note Date/Time of Note DATE: 05/27/17 TIME: 18:19 Assessment/Plan Assessment/Plan Chief Complaint/Hosp Course ID PROGRESS NOTE CURRENT ABX: TOTAL ABX DAY # 12=> Vanco IV + Merrem 24H INTERVAL SUMMARY * Status improvede -- tolerating TF via GT -- PLAN to TNS to TELE PENDING * Frail elder, w/mild tachypnea & supplemental O2 via NC 4L, intermittent pacing on tele w/underlying heart block * Encephalopathic, s/p HD yesterday per RN, does not follow commands, NGT out * INDWELLINGS: right IJ PermCath, PICC line placed on 05/22/2017. Physical Exam Const: Frail 89 yo elder M, lethargic, responds to physical stimuli , non-verbal Head: Atraumatic , normocephalic Eyes: Normal Conjunctiva, anicteric ENT: Normal External Ears, Nose, Edentulous Neck: Full range of motion. Supple Resp: Clear to auscultation bilaterally Cardio: Regular rate and rhythm, no murmurs Abd: Soft, non tender, non distended. Normal bowel sounds Skin: No petechiae or rashes=> Large unstageable sacral decub Back: Deferred Ext: No cyanosis, or edema Neur: Lethargic, does not follow commands, no significant purposeful movements observed Psych: Encephalopathic ID ASSESSMENT 89 yo M PMHx CVA 1984 w/LLEXT hemiparesis, vascular dementia, dysphagia admit with: 1. Resolving Sepsis criteria w/hypotension, tachycardia, hypothermia, leukocytosis => RESOLVING 2. Status post enterococcal bacteremia=> Repeat blood cultures negative. * 2D ECHO (-) Vegetation * 05/15/17 BCx (+) ENTEROCOCCUS SPECIES ID ENTEROCOCCUS FAECALIS ENT [facility]PS [facility] RX --------- --- AMPICILLIN <=2 S PENICILLIN-G 2 S VANCOMYCIN 1 S 3. Acute hypoxic respiratory distress => combination of pulmonary edema + probably aspiration event. 4. Healthcare-associated pneumonia. * CXR 05/22/17 * New moderate right pleural effusion with at least partial collapse of the right lower lobe. * Increased left moderate pleural effusion, with at least partial collapse of the left lower lobe. 5. End-stage renal disease, hemodialysis dependent. * Hx of renal transplant 6. Coronary artery disease with a history of permanent pacemaker placement. 7. Acute toxic metabolic encephalopathy on chronic vascular dementia * 05/23/17 CT Brain IMPRESSION: Marked atrophy. Microangiopathic ischemic change. Atherosclerosis. No intracranial hemorrhage. 8. Sacral Decub: Unstageable INVASIVES: R-IJ PermCath, PICC (05/22/17) ABX ALLERGIES: KNDA CURRENT ABX: TOTAL ABX DAY # 12=>Vanco IV + Merrem ID RECOMMENDATIONS 1. Continue IV ABX -> Line salvage attempt = continue Vanco IV for total 14 days today is day # 07/12 2. Fluid overload management by HD 3. Chem Code status noted. . . Problems: Consultation Date/Type/Reason Admit Date/Time May 15, 2017 at 20:02 Initial Consult Date 05/24/17 Type of Consultation: ID Referring Provider: SUNIL GARCIA Exam/Review of Systems Vital Signs Vitals Vital Signs Date Time Temp Pulse Resp B/P Pulse Ox O2 Delivery O2 Flow Rate FiO2 05/27/17 16:00 98.3 70 17 113/39 100 Nasal Cannula 2.0 05/25/17 02:25 30 Intake and Output 05/26/17 05/26/17 05/27/17 15:00 23:00 07:00 Intake Total 470 ml 430 ml 240 ml Balance 470 ml 430 ml 240 ml Results Result Diagram: 05/27/17 0611 05/26/17 0513 Results 24 hrs Laboratory Tests Test 05/26/17 18:24 05/26/17 20:09 05/27/17 00:46 05/27/17 05:55 Bedside Glucose 121 109 120 117 Test 05/27/17 06:11 05/27/17 10:20 05/27/17 13:34 05/27/17 17:40 Hemoglobin 7.9 L Hematocrit 25.0 L Bedside Glucose 121 131 129 Medications Medications Current Medications Ondansetron HCl (Zofran Inj) 4 mg Q6H PRN IV NAUSEA AND/OR VOMITING; Start at 21:30 Acetaminophen (Tylenol Tab) 650 mg Q6H PRN PO PAIN LEVEL 1-3 OR FEVER Last administered on 05/27/17t 02:14; Admin Dose 650 MG; Start 05/15/17 at 21:30 Docusate Sodium (Colace) 100 mg Q12H PRN PO CONSTIPATION; Start 05/15/17 at 21 :30 Bisacodyl (Dulcolax) 5 mg DAILY PRN PO CONSTIPATION; Start 05/15/17 at 21:30 Famotidine (Pepcid) 20 mg DAILY PO Last administered on 05/27/17 09:54; Admin Dose 20 MG; Start 05/16/17 at 09:00 Aspirin (Halfprin) 81 mg DAILY PO Last administered on 05/27/17 09:54; Admin Dose 81 MG; Start 05/16/17 at 09:00 Atorvastatin Calcium (Lipitor) 20 mg HS PO Last administered on 05/26/17 20: 09; Admin Dose 20 MG; Start 05/16/17 at 21:00 Donepezil HCl (Aricept) 5 mg DAILY PO Last administered on 05/27/17 09:54; Admin Dose 5 MG; Start 05/16/17 at 09:00 Folic Acid (Folic Acid) 1 mg DAILY PO Last administered on 05/27/17 09:54; Admin Dose 1 MG; Start 05/16/17 at 09:00 Loratadine (Claritin) 10 mg DAILY PO Last administered on 05/27/17 09:55; Admin Dose 10 MG; Start 05/16/17 at 09:00 Megestrol Acetate (Megace) 40 mg DAILY PO Last administered on 05/27/17 09:55 ; Admin Dose 40 MG; Start 05/16/17 at 09:00 Diagnostic Test (Pha) (Accu-Chek) 1 ea 02 XX Last administered on 05/24/17 01 :02; Admin Dose 1 EA; Start 05/16/17 at 02:00 Miscellaneous Information 1 ea NOTE XX ; Start 05/15/17 at 22:00 Glucose (Glutose) 15 gm Q15M PRN PO DECREASED GLUCOSE; Start 05/15/17 at 22:00 Glucose (Glutose) 22.5 gm Q15M PRN PO DECREASED GLUCOSE; Start 05/15/17 at 22: 00 Dextrose (D50w Syringe) 25 ml Q15M PRN IV DECREASED GLUCOSE; Start 05/15/17 at 22:00 Dextrose (D50w Syringe) 50 ml Q15M PRN IV DECREASED GLUCOSE; Start 05/15/17 at 22:00 Glucagon (Glucagen) 1 mg Q15M PRN IM DECREASED GLUCOSE; Start 05/15/17 at 22: 00 Glucose (Glutose) 15 gm Q15M PRN BUCCAL DECREASED GLUCOSE; Start 05/15/17 at 22:00 Sulfacetamide Sodium (Bleph-10 Oph Drop) 1 drop BID BOTH EYES Last administered on 05/27/17 09:56; Admin Dose 1 DROP; Start 05/16/17 at 21:00 Amiodarone HCl (Cordarone) 200 mg DAILY PO Last administered on 05/27/17 09: 54; Admin Dose 200 MG; Start 05/18/17 at 16:00 Collagenase 1 applic 1 applic DAILY TOP Last administered on 05/27/17 09:55; Admin Dose 1 APPLIC; Start 05/18/17 at 21:00 Vancomycin HCl (Vancocin) 250 ml @ 125 mls/hr Q96H IVPB Last administered on 05/24/17 16:32; Admin Dose 125 MLS/HR; Start 05/20/17 at 17:00 Insulin Aspart (Adult SC Insulin - Mild Algorithm)... Q4 SC Last administered on 05/23/17 01:20; Admin Dose 1 UNIT; Start 05/21/17 at 13:00 Meropenem/Sodium Chloride (Merrem 500mg/50 ml(Pmx)) 50 ml @ 100 mls/hr Q24H IVPB Last administered on 05/27/17 16:45; Admin Dose 100 MLS/HR; Start 05/23 at 16:00 Midodrine (Proamatine) 2.5 mg TID PO Last administered on 05/27/17 13:36; Admin Dose 2.5 MG; Start 05/25/17 at 13:00 Miscellaneous Information (*Rx Drug Level Order Reminder*) VANCOMYCIN TROUGH AT 1600 ONCE ONCE XX ; Start 05/28/17 at 16:00; Stop 05/28/17 at 16:01 VIJAY MEZA NP May 27, 2017 18:21
[2017-05-27] MEDS: ATORVASTATIN 20 MG TAB PO SCH (21:22)
[2017-05-27] MEDS: LEVALBUTEROL (NEB) 0.63 MG/3 ML AMP HHN PRN (22:49)
[2017-05-27] MEDS: IPRATROPIUM (NEB) 0.5 MG/2.5 ML AMP HHN PRN (22:49)
[2017-05-28] VITALS (21 sets, daily range): BP systolic 88–136; BP diastolic 42–59; PULSE 79–113; RESP 17–20
[2017-05-28] MEDS: Insulin NOVOLOG SS MILD Algorithm (NPO/TPN/ENTERAL FEEDS) SC SCH ×6 (01:00→21:00)
[2017-05-28] MEDS: ACCU-CHEK XX SCH ×2 (02:00→21:57)
[2017-05-28] MEDS: LEVALBUTEROL (NEB) 0.63 MG/3 ML AMP HHN PRN ×2 (05:55→20:16)
[2017-05-28] MEDS: IPRATROPIUM (NEB) 0.5 MG/2.5 ML AMP HHN PRN ×2 (05:55→20:16)
[2017-05-28] MEDS: DONEPEZIL 5 MG TAB PO SCH (09:00)
[2017-05-28] MEDS: AMIODARONE 200 MG TAB PO SCH (09:00)
[2017-05-28] MEDS: SULFACETAMIDE 10% 15 ML OPH BOTH EYES SCH ×2 (09:00→21:49)
[2017-05-28] MEDS: MEGESTROL 40 MG TAB PO SCH (09:00)
[2017-05-28] MEDS: COLLAGENASE 30 GM TUBE TOP SCH (09:00)
[2017-05-28] MEDS: BALSAM PERU/CASTOR OIL 60 GM TUBE TOP SCH ×2 (09:00→21:56)
[2017-05-28] MEDS: ASPIRIN (EC) 81 MG TAB PO SCH (10:27)
[2017-05-28] MEDS: LORATADINE 10 MG TAB PO SCH (10:27)
[2017-05-28] MEDS: MIDODRINE 2.5 MG TAB PO SCH ×3 (10:27→21:48)
[2017-05-28] MEDS: FOLIC ACID 1 MG TAB PO SCH (10:28)
[2017-05-28] MEDS: FAMOTIDINE 20 MG TAB PO SCH (10:28)
--- NOTE | 2017-05-28 10:37 | PN ---
Date/Time of Note Date/Time of Note DATE: 05/28/17 TIME: 10:29 Assessment/Plan VTE Prophylaxis VTE Prophylaxis Intervention: contraindicated Lines/Catheters IV Catheter Type (from Nrsg): PICC Line Central line still needed: Yes Assessment/Plan Assessment/Plan 1. Septic shock secondary to bacteremia, resolving - Patient currently in telemetry and BP stable on midodrine - Patient had +blood cultures for enterococcus and ID on board. Recommendations appreciated and plans for total of 14 days of antibiotics. Currently on day 13/ of Vancomycin and Meropenem - Repeat blood cultures are negative. - ECHO- no vegetations seen 2. Hypotension - labile, depends on HD - midodrine, patient's son understands this may be harmful in the long run, but wishes to risk the medication to keep patient's BP elevated. - will continue to monitor and adjust medication 3. encephalopathy -Likely baseline, no change -this level of dementia/encephalopathy was seen previously a few weeks ago -repeat CT not showing any acute issues 4. Hyponatremia, resolved - Will continue to monitor - Urine studies not possible 2/2 no urine production -? volume overload/renal failure/HD -tube feeds with water flush, Iv fluids, monitor 5. Anemia, chronic, CKD related, s/p transfusion - Hbg this am 6.9. Will type and cross and transfuse with HD today - likely 2/2 chronic disease and repeated daily blood draws - Continue to monitor and transfuse if <7 6. ESRD, DD, on HD, electrolyte abnormalities - Nephrology on board and consultation appreciated - Discussed with son the effects HD has been on his father but still wants to continue. 7. fail to thrive, moderate malnutrition with hypoalbuminemia - PEG in place and on TF - On hold today secondary to increase residuals and respiratory distress 8. paroxysmal atrial fibrillation, sinus rhythm, not a candidate for anticoagulant - Cardiology on board and consultation appreciated. HR controlled 9. history of cerebrovascular accident 10. aortic stenosis 11. sick sinus syndrome status post permanent pacemaker - pacer interrogated and shows normal pacing function 12. dyslipidemia, on statin 13. dementia, chronic, stable 14. Disposition - Once stable, will need SNF placement. On day 13/14 antibiotics Subjective 24 Hr Interval Summary Free Text/Dictation Patient was having increase wheezing and tachypnea overnight and tube feeds held. Patient received breathing treatment as well. Noted to have low hgb this am as well. Exam/Review of Systems Vital Signs Vitals Vital Signs Date Time Temp Pulse Resp B/P Pulse Ox O2 Delivery O2 Flow Rate FiO2 05/28/17 08:16 100 05/28/17 08:14 98.0 18 114/56 91 05/28/17 05:55 Nasal Cannula 2.0 05/25/17 02:25 30 Intake and Output 05/27/17 05/27/17 05/28/17 15:00 23:00 07:00 Intake Total 240 ml 30 ml 130 ml Balance 240 ml 30 ml 130 ml Exam General: frail appearing, awake but not following commands HEENT: Atraumatic, normocephalic. Neck: Supple with full range of motion. Lungs: Coarse breath sounds bilaterally, slight expiratory wheezing Heart: Normal S1-S2, regular rate, irregularly irregular rhythm Abdomen: Soft , nontender, nondistended , bowel sounds are present. No guarding no rebound tenderness. PEG in place Extremities: +pedal edema b/l. Normal to inspection, no cyanosis Neuro: follows minimal command, moves all extremities spontaneously Skin: Sacral skin wound, multiple other pressure wounds Results Result Diagram: 05/28/17 0634 05/26/17 0513 Results 24 hrs Laboratory Tests Test 05/27/17 13:34 05/27/17 17:40 05/27/17 21:28 05/28/17 01:36 Bedside Glucose 131 129 139 137 Test 05/28/17 04:58 05/28/17 06:34 Bedside Glucose 110 Hemoglobin 6.9 *L Hematocrit 22.5 L Medications Medications Current Medications Ondansetron HCl (Zofran Inj) 4 mg Q6H PRN IV NAUSEA AND/OR VOMITING; Start at 21:30 Acetaminophen (Tylenol Tab) 650 mg Q6H PRN PO PAIN LEVEL 1-3 OR FEVER Last administered on 05/27/17 02:14; Admin Dose 650 MG; Start 05/15/17 at 21:30 Docusate Sodium (Colace) 100 mg Q12H PRN PO CONSTIPATION; Start 05/15/17 at 21 :30 Bisacodyl (Dulcolax) 5 mg DAILY PRN PO CONSTIPATION; Start 05/15/17 at 21:30 Famotidine (Pepcid) 20 mg DAILY PO Last administered on 05/27/17 09:54; Admin Dose 20 MG; Start 05/16/17 at 09:00 Aspirin (Halfprin) 81 mg DAILY PO Last administered on 05/27/17 09:54; Admin Dose 81 MG; Start 05/16/17 at 09:00 Atorvastatin Calcium (Lipitor) 20 mg HS PO Last administered on 05/27/17 21: 22; Admin Dose 20 MG; Start 05/16/17 at 21:00 Donepezil HCl (Aricept) 5 mg DAILY PO Last administered on 05/27/17 09:54; Admin Dose 5 MG; Start 05/16/17 at 09:00 Folic Acid (Folic Acid) 1 mg DAILY PO Last administered on 05/27/17 09:54; Admin Dose 1 MG; Start 05/16/17 at 09:00 Loratadine (Claritin) 10 mg DAILY PO Last administered on 05/27/17 09:55; Admin Dose 10 MG; Start 05/16/17 at 09:00 Megestrol Acetate (Megace) 40 mg DAILY PO Last administered on 05/27/17 09:55 ; Admin Dose 40 MG; Start 05/16/17 at 09:00 Diagnostic Test (Pha) (Accu-Chek) 1 ea 02 XX Last administered on 05/24/17 01 :02; Admin Dose 1 EA; Start 05/16/17 at 02:00 Miscellaneous Information 1 ea NOTE XX ; Start 05/15/17 at 22:00 Glucose (Glutose) 15 gm Q15M PRN PO DECREASED GLUCOSE; Start 05/15/17 at 22:00 Glucose (Glutose) 22.5 gm Q15M PRN PO DECREASED GLUCOSE; Start 05/15/17 at 22: 00 Dextrose (D50w Syringe) 25 ml Q15M PRN IV DECREASED GLUCOSE; Start 05/15/17 at 22:00 Dextrose (D50w Syringe) 50 ml Q15M PRN IV DECREASED GLUCOSE; Start 05/15/17 at 22:00 Glucagon (Glucagen) 1 mg Q15M PRN IM DECREASED GLUCOSE; Start 05/15/17 at 22: 00 Glucose (Glutose) 15 gm Q15M PRN BUCCAL DECREASED GLUCOSE; Start 05/15/17 at 22:00 Sulfacetamide Sodium (Bleph-10 Oph Drop) 1 drop BID BOTH EYES Last administered on 05/27/17 22:40; Admin Dose 1 DROP; Start 05/16/17 at 21:00 Amiodarone HCl (Cordarone) 200 mg DAILY PO Last administered on 05/27/17 09: 54; Admin Dose 200 MG; Start 05/18/17 at 16:00 Collagenase 1 applic 1 applic DAILY TOP Last administered on 05/27/17 22:39; Admin Dose 1 APPLIC; Start 05/18/17 at 21:00 Vancomycin HCl (Vancocin) 250 ml @ 125 mls/hr Q96H IVPB Last administered on 05/24/17 16:32; Admin Dose 125 MLS/HR; Start 05/20/17 at 17:00 Insulin Aspart (Adult SC Insulin - Mild Algorithm)... Q4 SC Last administered on 05/23/17 01:20; Admin Dose 1 UNIT; Start 05/21/17 at 13:00 Meropenem/Sodium Chloride (Merrem 500mg/50 ml(Pmx)) 50 ml @ 100 mls/hr Q24H IVPB Last administered on 05/27/17 16:45; Admin Dose 100 MLS/HR; Start 05/23 at 16:00 Midodrine (Proamatine) 2.5 mg TID PO Last administered on 05/27/17 21:25; Admin Dose 2.5 MG; Start 05/25/17 at 13:00 Miscellaneous Information (*Rx Drug Level Order Reminder*) VANCOMYCIN TROUGH AT 1600 ONCE ONCE XX ; Start 05/28/17 at 16:00; Stop 05/28/17 at 16:01 VIV FORD MD May 28, 2017 10:37
--- NOTE | 2017-05-28 10:39 | CONS ---
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 Possible SNF Problems: Consultation Date/Type/Reason Admit Date/Time May 15, 2017 at 20:02 Initial Consult Date 05/16/17 Type of Consultation: NEPHROLOGY Reason for Consultation ESRD ON HEMODIALYSIS Referring Provider: SUNIL GARCIA 24 HR Interval Summary Subjective hx not possible: pt non-verbal Constitutional: no complaints Exam/Review of Systems Vital Signs Vitals Vital Signs Date Time Temp Pulse Resp B/P Pulse Ox O2 Delivery O2 Flow Rate FiO2 05/28/17 08:16 100 05/28/17 08:14 98.0 18 114/56 91 05/28/17 05:55 Nasal Cannula 2.0 05/25/17 02:25 30 Intake and Output 05/27/17 05/27/17 05/28/17 15:00 23:00 07:00 Intake Total 240 ml 30 ml 130 ml Balance 240 ml 30 ml 130 ml Exam Constitutional: non-verbal Psych: no complaints Respiratory: crackles/rales Cardiovascular: regular rate and rhythm, systolic murmur Gastrointestinal: soft Results Result Diagram: 05/28/17 0634 05/26/17 0513 Results 24 hrs Laboratory Tests Test 05/27/17 13:34 05/27/17 17:40 05/27/17 21:28 05/28/17 01:36 Bedside Glucose 131 129 139 137 Test 05/28/17 04:58 05/28/17 06:34 Bedside Glucose 110 Hemoglobin 6.9 *L Hematocrit 22.5 L Medications Medications Current Medications Ondansetron HCl (Zofran Inj) 4 mg Q6H PRN IV NAUSEA AND/OR VOMITING; Start at 21:30 Acetaminophen (Tylenol Tab) 650 mg Q6H PRN PO PAIN LEVEL 1-3 OR FEVER Last administered on 05/27/17t 02:14; Admin Dose 650 MG; Start 05/15/17 at 21:30 Docusate Sodium (Colace) 100 mg Q12H PRN PO CONSTIPATION; Start 05/15/17 at 21 :30 Bisacodyl (Dulcolax) 5 mg DAILY PRN PO CONSTIPATION; Start 05/15/17 at 21:30 Famotidine (Pepcid) 20 mg DAILY PO Last administered on 05/28/17 10:28; Admin Dose 20 MG; Start 05/16/17 at 09:00 Aspirin (Halfprin) 81 mg DAILY PO Last administered on 05/28/17 10:27; Admin Dose 81 MG; Start 05/16/17 at 09:00 Atorvastatin Calcium (Lipitor) 20 mg HS PO Last administered on 05/27/17 21: 22; Admin Dose 20 MG; Start 05/16/17 at 21:00 Donepezil HCl (Aricept) 5 mg DAILY PO Last administered on 05/28/17 09:00; Admin Dose 5 MG; Start 05/16/17 at 09:00 Folic Acid (Folic Acid) 1 mg DAILY PO Last administered on 05/28/17 10:28; Admin Dose 1 MG; Start 05/16/17 at 09:00 Loratadine (Claritin) 10 mg DAILY PO Last administered on 05/28/17 10:27; Admin Dose 10 MG; Start 05/16/17 at 09:00 Megestrol Acetate (Megace) 40 mg DAILY PO Last administered on 05/27/17 09:55 ; Admin Dose 40 MG; Start 05/16/17 at 09:00 Diagnostic Test (Pha) (Accu-Chek) 1 ea 02 XX Last administered on 05/24/17 01 :02; Admin Dose 1 EA; Start 05/16/17 at 02:00 Miscellaneous Information 1 ea NOTE XX ; Start 05/15/17 at 22:00 Glucose (Glutose) 15 gm Q15M PRN PO DECREASED GLUCOSE; Start 05/15/17 at 22:00 Glucose (Glutose) 22.5 gm Q15M PRN PO DECREASED GLUCOSE; Start 05/15/17 at 22: 00 Dextrose (D50w Syringe) 25 ml Q15M PRN IV DECREASED GLUCOSE; Start 05/15/17 at 22:00 Dextrose (D50w Syringe) 50 ml Q15M PRN IV DECREASED GLUCOSE; Start 05/15/17 at 22:00 Glucagon (Glucagen) 1 mg Q15M PRN IM DECREASED GLUCOSE; Start 05/15/17 at 22: 00 Glucose (Glutose) 15 gm Q15M PRN BUCCAL DECREASED GLUCOSE; Start 05/15/17 at 22:00 Sulfacetamide Sodium (Bleph-10 Oph Drop) 1 drop BID BOTH EYES Last administered on 05/28/17 09:00; Admin Dose 1 DROP; Start 05/16/17 at 21:00 Amiodarone HCl (Cordarone) 200 mg DAILY PO Last administered on 05/27/17 09: 54; Admin Dose 200 MG; Start 05/18/17 at 16:00 Collagenase 1 applic 1 applic DAILY TOP Last administered on 05/28/17 09:00; Admin Dose 1 APPLIC; Start 05/18/17 at 21:00 Vancomycin HCl (Vancocin) 250 ml @ 125 mls/hr Q96H IVPB Last administered on 05/24/17 16:32; Admin Dose 125 MLS/HR; Start 05/20/17 at 17:00 Insulin Aspart (Adult SC Insulin - Mild Algorithm)... Q4 SC Last administered on 05/23/17 01:20; Admin Dose 1 UNIT; Start 05/21/17 at 13:00 Meropenem/Sodium Chloride (Merrem 500mg/50 ml(Pmx)) 50 ml @ 100 mls/hr Q24H IVPB Last administered on 05/27/17 16:45; Admin Dose 100 MLS/HR; Start 05/23 at 16:00 Midodrine (Proamatine) 2.5 mg TID PO Last administered on 05/28/17 10:27; Admin Dose 2.5 MG; Start 05/25/17 at 13:00 Miscellaneous Information (*Rx Drug Level Order Reminder*) VANCOMYCIN TROUGH AT 1600 ONCE ONCE XX ; Start 05/28/17 at 16:00; Stop 05/28/17 at 16:01 DENVER ANTONY MD May 28, 2017 10:39
--- NOTE | 2017-05-28 14:18 | CONS ---
Date/Time of Note Date/Time of Note DATE: 05/28/17 TIME: 14:16 Consult Date/Type/Reason Admit Date/Time May 15, 2017 at 20:02 Initial Consult Date 05/16/17 Type of Consultation: ID Ordering Provider: SUNIL GARCIA Objective Vital Signs Date Time Temp Pulse Resp B/P Pulse Ox O2 Delivery O2 Flow Rate FiO2 05/28/17 12:07 90 05/28/17 11:52 97.9 20 122/57 93 05/28/17 05:55 Nasal Cannula 2.0 05/25/17 02:25 30 Intake and Output 05/27/17 05/27/17 05/28/17 14:59 22:59 06:59 Intake Total 240 ml 60 ml 130 ml Balance 240 ml 60 ml 130 ml Results/Medications Result Diagram: 05/28/17 0634 05/26/17 0513 Results 24 hrs Laboratory Tests Test 05/27/17 17:40 05/27/17 21:28 05/28/17 01:36 05/28/17 04:58 Bedside Glucose 129 139 137 110 Test 05/28/17 06:34 05/28/17 10:25 Hemoglobin 6.9 *L Hematocrit 22.5 L Bedside Glucose 106 Medications Current Medications Ondansetron HCl (Zofran Inj) 4 mg Q6H PRN IV NAUSEA AND/OR VOMITING; Start at 21:30 Acetaminophen (Tylenol Tab) 650 mg Q6H PRN PO PAIN LEVEL 1-3 OR FEVER Last administered on 05/27/17 02:14; Admin Dose 650 MG; Start 05/15/17 at 21:30 Docusate Sodium (Colace) 100 mg Q12H PRN PO CONSTIPATION; Start 05/15/17 at 21 :30 Bisacodyl (Dulcolax) 5 mg DAILY PRN PO CONSTIPATION; Start 05/15/17 at 21:30 Famotidine (Pepcid) 20 mg DAILY PO Last administered on 05/28/17 10:28; Admin Dose 20 MG; Start 05/16/17 at 09:00 Aspirin (Halfprin) 81 mg DAILY PO Last administered on 05/28/17 10:27; Admin Dose 81 MG; Start 05/16/17 at 09:00 Atorvastatin Calcium (Lipitor) 20 mg HS PO Last administered on 05/27/17 21: 22; Admin Dose 20 MG; Start 05/16/17 at 21:00 Donepezil HCl (Aricept) 5 mg DAILY PO Last administered on 05/28/17 09:00; Admin Dose 5 MG; Start 05/16/17 at 09:00 Folic Acid (Folic Acid) 1 mg DAILY PO Last administered on 05/28/17 10:28; Admin Dose 1 MG; Start 05/16/17 at 09:00 Loratadine (Claritin) 10 mg DAILY PO Last administered on 05/28/17 10:27; Admin Dose 10 MG; Start 05/16/17 at 09:00 Megestrol Acetate (Megace) 40 mg DAILY PO Last administered on 05/27/17 09:55 ; Admin Dose 40 MG; Start 05/16/17 at 09:00 Diagnostic Test (Pha) (Accu-Chek) 1 ea 02 XX Last administered on 05/24/17 01 :02; Admin Dose 1 EA; Start 05/16/17 at 02:00 Miscellaneous Information 1 ea NOTE XX ; Start 05/15/17 at 22:00 Glucose (Glutose) 15 gm Q15M PRN PO DECREASED GLUCOSE; Start 05/15/17 at 22:00 Glucose (Glutose) 22.5 gm Q15M PRN PO DECREASED GLUCOSE; Start 05/15/17 at 22: 00 Dextrose (D50w Syringe) 25 ml Q15M PRN IV DECREASED GLUCOSE; Start 05/15/17 at 22:00 Dextrose (D50w Syringe) 50 ml Q15M PRN IV DECREASED GLUCOSE; Start 05/15/17 at 22:00 Glucagon (Glucagen) 1 mg Q15M PRN IM DECREASED GLUCOSE; Start 05/15/17 at 22: 00 Glucose (Glutose) 15 gm Q15M PRN BUCCAL DECREASED GLUCOSE; Start 05/15/17 at 22:00 Sulfacetamide Sodium (Bleph-10 Oph Drop) 1 drop BID BOTH EYES Last administered on 05/28/17 09:00; Admin Dose 1 DROP; Start 05/16/17 at 21:00 Amiodarone HCl (Cordarone) 200 mg DAILY PO Last administered on 05/27/17 09: 54; Admin Dose 200 MG; Start 05/18/17 at 16:00 Collagenase 1 applic 1 applic DAILY TOP Last administered on 05/28/17 09:00; Admin Dose 1 APPLIC; Start 05/18/17 at 21:00 Vancomycin HCl (Vancocin) 250 ml @ 125 mls/hr Q96H IVPB Last administered on 05/24/17 16:32; Admin Dose 125 MLS/HR; Start 05/20/17 at 17:00 Insulin Aspart (Adult SC Insulin - Mild Algorithm)... Q4 SC Last administered on 05/23/17 01:20; Admin Dose 1 UNIT; Start 05/21/17 at 13:00 Meropenem/Sodium Chloride (Merrem 500mg/50 ml(Pmx)) 50 ml @ 100 mls/hr Q24H IVPB Last administered on 05/27/17 16:45; Admin Dose 100 MLS/HR; Start 05/23 at 16:00 Midodrine (Proamatine) 2.5 mg TID PO Last administered on 05/28/17 13:00; Admin Dose 2.5 MG; Start 05/25/17 at 13:00 Miscellaneous Information (*Rx Drug Level Order Reminder*) VANCOMYCIN TROUGH AT 1600 ONCE ONCE XX ; Start 05/28/17 at 16:00; Stop 05/28/17 at 16:01 Assessment/Plan Chief Complaint/Hosp Course SUBJECTIVE: The patient remains lethargic, TF on hold 2 to residuals. No fevers overnight. INDWELLINGS: NG tube, right IJ PermCath, PICC line placed on 05/22/2017. ANTIMICROBIALS: Meropenem and vancomycin. Vancomycin trough on 05/20/2017 was 13.7. PHYSICAL EXAMINATION: GENERAL: This is a fragile, chronically ill-appearing, elderly man who is in no distress. HEENT: Head atraumatic, normocephalic. Sclerae anicteric. Buccal mucosa dry. NECK: Supple. Trachea midline. CHEST: Rise symmetrical. Breath sounds diminished to bases. HEART: S1, S2. ABDOMEN: Soft. Bowel tones present. EXTREMITIES: Without cyanosis. ASSESSMENT: 1. Sepsis. 2. Acute encephalopathy. 3. Acute on chronic anemia 4. Healthcare-associated pneumonia, poss ongoing aspiration. 5. End-stage renal disease, hemodialysis dependent. 6. Status post enterococcal bacteremia. Repeat blood cultures negative. 7. Coronary artery disease with a history of permanent pacemaker placement. PLAN: The patient remains unchanged. He is chemical code. He is followed by multiple consultants. A 2D echo on admission revealed no vegetations. Repeat blood cultures have been negative. We will continue him on current antimicrobials. Continue anti-aspiration measures. Bld tx per primary. Prognosis guarded. DW staff Problems: JACK CHAN NP May 28, 2017 14:18
[2017-05-28] MEDS: MEROPENEM 500MG/50 ML (PMX) 50 ML IVPB SCH (16:43)
[2017-05-28] MEDS: VANCOMYCIN 1 GM in NS 250 ML IVPB SCH (17:00)
[2017-05-28] MEDS: ATORVASTATIN 20 MG TAB PO SCH (21:56)
[2017-05-29] VITALS (15 sets, daily range): BP systolic 92–123; BP diastolic 44–71; PULSE 79–96; RESP 18–20
[2017-05-29] MEDS: Insulin NOVOLOG SS MILD Algorithm (NPO/TPN/ENTERAL FEEDS) SC SCH ×6 (01:00→21:00)
[2017-05-29] MEDS: SULFACETAMIDE 10% 15 ML OPH BOTH EYES SCH (09:00)
[2017-05-29] MEDS: LORATADINE 10 MG TAB GTB SCH (09:33)
[2017-05-29] MEDS: FOLIC ACID 1 MG TAB GTB SCH (09:33)
[2017-05-29] MEDS: MEGESTROL 40 MG TAB GTB SCH (09:33)
[2017-05-29] MEDS: DONEPEZIL 5 MG TAB GTB SCH (09:33)
[2017-05-29] MEDS: ASPIRIN 81 MG TAB GTB SCH (09:33)
[2017-05-29] MEDS: FAMOTIDINE 20 MG TAB GTB SCH (09:34)
[2017-05-29] MEDS: AMIODARONE 200 MG TAB GTB SCH (09:34)
[2017-05-29] MEDS: COLLAGENASE 30 GM TUBE TOP SCH (09:35)
[2017-05-29] MEDS: BALSAM PERU/CASTOR OIL 60 GM TUBE TOP SCH ×2 (09:35→21:00)
--- NOTE | 2017-05-29 10:27 | PN ---
Date/Time of Note Date/Time of Note DATE: 05/29/17 TIME: 10:27 Assessment/Plan VTE Prophylaxis VTE Prophylaxis Intervention: contraindicated Lines/Catheters IV Catheter Type (from Nrsg): PICC Line Central line still needed: Yes Assessment/Plan Assessment/Plan 1. Septic shock secondary to bacteremia, resolving - Patient had +blood cultures for enterococcus and ID on board. Currently on Vancomycin and will continue for 4 more days - Repeat blood cultures are negative. - ECHO- no vegetations seen 2. Hypotension - labile, depends on HD - Had some hypotensive episodes this am despite medications. Will monitor - midodrine, patient's son understands this may be harmful in the long run, but wishes to risk the medication to keep patient's BP elevated. 3. encephalopathy -Likely baseline, no change -this level of dementia/encephalopathy was seen previously a few weeks ago -repeat CT not showing any acute issues 4. Hyponatremia, resolved - Will continue to monitor - Urine studies not possible 2/2 no urine production -tube feeds with water flush, Iv fluids, monitor 5. Anemia, chronic, CKD related, s/p transfusion - Hbg this am 10 s/p transfusion yesterday - likely 2/2 chronic disease and repeated daily blood draws - Continue to monitor and transfuse if <7 6. ESRD, DD, on HD, electrolyte abnormalities - Nephrology on board and consultation appreciated - Discussed with son the effects HD has been on his father but still wants to continue. 7. fail to thrive, moderate malnutrition with hypoalbuminemia - PEG in place and on TF 8. paroxysmal atrial fibrillation, sinus rhythm, not a candidate for anticoagulant - Cardiology on board and consultation appreciated. HR controlled 9. history of cerebrovascular accident 10. aortic stenosis 11. sick sinus syndrome status post permanent pacemaker - pacer interrogated and shows normal pacing function 12. dyslipidemia, on statin 13. dementia, chronic, stable 14. Disposition - If patient remains stable, will d/c to SNF in am with 4 more days of Vancomycin Subjective 24 Hr Interval Summary Free Text/Dictation Patient in no acute distress. Opens eyes to voice and touch and minimal verbal response. No acute overnight events. Patients BP was running low, in 80s during the afternoon and transfer to SNF put on hold for monitoring. Exam/Review of Systems Vital Signs Vitals Vital Signs Date Time Temp Pulse Resp B/P Pulse Ox O2 Delivery O2 Flow Rate FiO2 05/29/17 09:37 81 05/29/17 07:52 98.0 20 114/71 100 05/29/17 07:40 2.0 05/29/17 00:00 Nasal Cannula Intake and Output 05/28/17 05/28/17 05/29/17 15:00 23:00 07:00 Intake Total 950 ml 640 ml Output Total 1800 ml Balance -850 ml 640 ml Exam General: frail appearing, awake but not following commands HEENT: Atraumatic, normocephalic. Neck: Supple with full range of motion. Lungs: Coarse breath sounds bilaterally, no wheezing appreciated Heart: Normal S1-S2, regular rate, irregularly irregular rhythm Abdomen: Soft , nontender, nondistended , bowel sounds are present. No guarding no rebound tenderness. PEG in place Extremities: +pedal edema b/l. Normal to inspection, no cyanosis Neuro: follows minimal command, moves all extremities spontaneously Skin: Sacral skin wound, multiple other pressure wounds Results Result Diagram: 05/29/17 0703 05/29/17 0703 Results 24 hrs Laboratory Tests Test 05/28/17 17:15 05/28/17 18:46 05/28/17 21:51 05/29/17 01:25 Vancomycin Level Trough 11.9 Bedside Glucose 117 105 101 Test 05/29/17 05:17 05/29/17 06:26 05/29/17 07:03 05/29/17 09:11 Bedside Glucose 115 130 Lab Scanned Report BLOOD TRANSFUSION White Blood Count 9.7 Red Blood Count 3.37 #L Hemoglobin 10.0 #L Hematocrit 29.5 #L Mean Corpuscular Volume 87.5 Mean Corpuscular Hemoglobin 29.7 Mean Corpuscular Hemoglobin Concent 33.9 Red Cell Distribution Width 17.1 H Platelet Count 85 L Mean Platelet Volume 11.2 H Neutrophils % 82.4 H Lymphocytes % 6.3 L Monocytes % 9.1 Eosinophils % 1.4 Basophils % 0.2 Nucleated Red Blood Cells % 0.0 Neutrophils # 8.0 H Lymphocytes # 0.6 L Monocytes # 0.9 Eosinophils # 0.1 Basophils # 0.0 Nucleated Red Blood Cells # 0.0 Sodium Level 137 Potassium Level 4.1 Chloride Level 101 Carbon Dioxide Level 29 Anion Gap 11 Blood Urea Nitrogen 43 H Creatinine 3.62 H Glucose Level 117 Calcium Level 7.1 L Phosphorus Level 2.9 Magnesium Level 2.0 Albumin 2.0 L Medications Medications Current Medications Ondansetron HCl (Zofran Inj) 4 mg Q6H PRN IV NAUSEA AND/OR VOMITING; Start at 21:30 Acetaminophen (Tylenol Tab) 650 mg Q6H PRN PO PAIN LEVEL 1-3 OR FEVER Last administered on 05/27/17 02:14; Admin Dose 650 MG; Start 05/15/17 at 21:30 Docusate Sodium (Colace) 100 mg Q12H PRN PO CONSTIPATION; Start 05/15/17 at 21 :30 Bisacodyl (Dulcolax) 5 mg DAILY PRN PO CONSTIPATION; Start 05/15/17 at 21:30 Atorvastatin Calcium (Lipitor) 20 mg HS PO Last administered on 05/28/17 21: 56; Admin Dose 20 MG; Start 05/16/17 at 21:00 Diagnostic Test (Pha) (Accu-Chek) 1 ea 02 XX Last administered on 05/24/17 01 :02; Admin Dose 1 EA; Start 05/16/17 at 02:00 Miscellaneous Information 1 ea NOTE XX ; Start 05/15/17 at 22:00 Glucose (Glutose) 15 gm Q15M PRN PO DECREASED GLUCOSE; Start 05/15/17 at 22:00 Glucose (Glutose) 22.5 gm Q15M PRN PO DECREASED GLUCOSE; Start 05/15/17 at 22: 00 Dextrose (D50w Syringe) 25 ml Q15M PRN IV DECREASED GLUCOSE; Start 05/15/17 at 22:00 Dextrose (D50w Syringe) 50 ml Q15M PRN IV DECREASED GLUCOSE; Start 05/15/17 at 22:00 Glucagon (Glucagen) 1 mg Q15M PRN IM DECREASED GLUCOSE; Start 05/15/17 at 22: 00 Glucose (Glutose) 15 gm Q15M PRN BUCCAL DECREASED GLUCOSE; Start 05/15/17 at 22:00 Sulfacetamide Sodium (Bleph-10 Oph Drop) 1 drop BID BOTH EYES Last administered on 05/28/17 21:49; Admin Dose 1 DROP; Start 05/16/17 at 21:00 Collagenase 1 applic 1 applic DAILY TOP Last administered on 05/29/17 09:35; Admin Dose 1 APPLIC; Start 05/18/17 at 21:00 Vancomycin HCl (Vancocin) 250 ml @ 125 mls/hr Q96H IVPB Last administered on 05/28/17 17:00; Admin Dose 125 MLS/HR; Start 05/20/17 at 17:00 Insulin Aspart (Adult SC Insulin - Mild Algorithm)... Q4 SC Last administered on 05/23/17 01:20; Admin Dose 1 UNIT; Start 05/21/17 at 13:00 Meropenem/Sodium Chloride (Merrem 500mg/50 ml(Pmx)) 50 ml @ 100 mls/hr Q24H IVPB Last administered on 05/28/17 16:43; Admin Dose 100 MLS/HR; Start 05/23 at 16:00 Amiodarone HCl (Cordarone) 200 mg DAILY GTB Last administered on 05/29/17 09: 34; Admin Dose 200 MG; Start 05/29/17 at 09:00 Donepezil HCl (Aricept) 5 mg DAILY GTB Last administered on 05/29/17 09:33; Admin Dose 5 MG; Start 05/29/17 at 09:00 Famotidine (Pepcid) 20 mg DAILY GTB Last administered on 05/29/17 09:34; Admin Dose 20 MG; Start 05/29/17 at 09:00 Folic Acid (Folic Acid) 1 mg DAILY GTB Last administered on 05/29/17 09:33; Admin Dose 1 MG; Start 05/29/17 at 09:00 Loratadine (Claritin) 10 mg DAILY GTB Last administered on 05/29/17 09:33; Admin Dose 10 MG; Start 05/29/17 at 09:00 Megestrol Acetate (Megace) 40 mg DAILY GTB Last administered on 05/29/17 09: 33; Admin Dose 40 MG; Start 05/29/17 at 09:00 Midodrine (Proamatine) 2.5 mg TID@06,12,18 GTB ; Start 05/29/17 at 12:00 Aspirin (Aspirin) 81 mg DAILY GTB Last administered on 05/29/17 09:33; Admin Dose 81 MG; Start 05/29/17 at 09:00 VIV FORD MD May 29, 2017 10:27
[2017-05-29] MEDS ORDERED: ASPI81TA3 GTB (12:18)
[2017-05-29] MEDS ORDERED: BALS60OI TOP (12:18)
[2017-05-29] MEDS ORDERED: MIDO2.5T GTB (12:18)
[2017-05-29] MEDS ORDERED: SAN30GM TOP (12:18)
[2017-05-29] MEDS ORDERED: AMIO200T2 GTB (12:18)
--- NOTE | 2017-05-29 12:27 | PN ---
Date/Time of Note Date/Time of Note DATE: 05/29/17 TIME: 12:25 Assessment/Plan VTE Prophylaxis VTE Prophylaxis Intervention: SCD's Lines/Catheters IV Catheter Type (from Nrsg): PICC Line Central line still needed: Yes (medication) Assessment/Plan Chief Complaint/Hosp Course Summary Assessment and Plan: Assessment: Failure to thrive, malnutrition with hypoalbuminemia, Anemia, chronic, CKD related, s/p transfusion ESRD, on HD Hypotension secondary to dehydration and/or possible early sepsis Lactic acidosis Suspected healthcare associated pneumonia Paroxysmal atrial fibrillation- controlled currently SR History of cerebrovascular accident. Aortic stenosis. Sick sinus syndrome with permanent pacemaker Dyslipidemia, on statin. Dementia/chronic Plan: Hgb stable - no overt signs of GI bleed Continue to monitor Hgb Tolerating TF well, TF at goal PEG care Continue supportive care Patient seen in collaboration with Dr. Rosado Subjective: Course reviewed with nursing staff Patient interviewed and examined All labs, imaging and other results reviewed No issues over night, no change in patients status Currently chemical code PHYSICAL EXAMINATION: GENERAL: Well developed, well nourished, alert & oriented x 3, in no acute distress SKIN: No lesions, no stigmata chronic liver disease, no evidence of bleeding diathesis, peg in place LYMPHATIC: No palpable lymphadenopathy. HEAD: Normocephalic, atraumatic, no tenderness. EYES: Pupils equal reactive to light and accommodation, full extraocular movements, sclera clear, non-icteric, no discharge. EARS/NOSE AND THROAT: Ears normal, nose normal, oropharynx normal, oral membranes well hydrated without lesions. NECK: Supple, no masses, thyroid normal, JVP within normal limits, carotids normal without bruits. CHEST: Inspection within normal limits. CARDIOVASCULAR: Heart: Regular rate and rhythm, n RESPIRATORY: Lungs clear to auscultation and percussion, no wheezing, no rubs GASTROINTESTINAL AND LIVER: Abdomen: Soft, non tenderness, non-distended, no hernias, no masses, no organomegaly, no ascites, no guarding, no rebound tenderness, normoactive bowel sounds. Rectal: Deferred. GENITOURINARY: Male genitalia within normal limits. Problems: Exam/Review of Systems Vital Signs Vitals Vital Signs Date Time Temp Pulse Resp B/P Pulse Ox O2 Delivery O2 Flow Rate FiO2 05/29/17 11:37 98.0 91 19 109/44 100 05/29/17 08:04 Nasal Cannula 2.0 Intake and Output 05/28/17 05/28/17 05/29/17 15:00 23:00 07:00 Intake Total 950 ml 640 ml Output Total 1800 ml Balance -850 ml 640 ml Results Result Diagram: 05/29/17 0703 05/29/17 0703 Results 24 hrs Laboratory Tests Test 05/28/17 17:15 05/28/17 18:46 05/28/17 21:51 05/29/17 01:25 Vancomycin Level Trough 11.9 Bedside Glucose 117 105 101 Test 05/29/17 05:17 05/29/17 06:26 05/29/17 07:03 05/29/17 09:11 Bedside Glucose 115 130 Lab Scanned Report BLOOD TRANSFUSION White Blood Count 9.7 Red Blood Count 3.37 #L Hemoglobin 10.0 #L Hematocrit 29.5 #L Mean Corpuscular Volume 87.5 Mean Corpuscular Hemoglobin 29.7 Mean Corpuscular Hemoglobin Concent 33.9 Red Cell Distribution Width 17.1 H Platelet Count 85 L Mean Platelet Volume 11.2 H Neutrophils % 82.4 H Lymphocytes % 6.3 L Monocytes % 9.1 Eosinophils % 1.4 Basophils % 0.2 Nucleated Red Blood Cells % 0.0 Neutrophils # 8.0 H Lymphocytes # 0.6 L Monocytes # 0.9 Eosinophils # 0.1 Basophils # 0.0 Nucleated Red Blood Cells # 0.0 Sodium Level 137 Potassium Level 4.1 Chloride Level 101 Carbon Dioxide Level 29 Anion Gap 11 Blood Urea Nitrogen 43 H Creatinine 3.62 H Glucose Level 117 Calcium Level 7.1 L Phosphorus Level 2.9 Magnesium Level 2.0 Albumin 2.0 L Medications Medications Current Medications Ondansetron HCl (Zofran Inj) 4 mg Q6H PRN IV NAUSEA AND/OR VOMITING; Start at 21:30 Acetaminophen (Tylenol Tab) 650 mg Q6H PRN PO PAIN LEVEL 1-3 OR FEVER Last administered on 05/27/17t 02:14; Admin Dose 650 MG; Start 05/15/17 at 21:30 Docusate Sodium (Colace) 100 mg Q12H PRN PO CONSTIPATION; Start 05/15/17 at 21 :30 Bisacodyl (Dulcolax) 5 mg DAILY PRN PO CONSTIPATION; Start 05/15/17 at 21:30 Atorvastatin Calcium (Lipitor) 20 mg HS PO Last administered on 05/28/17 21: 56; Admin Dose 20 MG; Start 05/16/17 at 21:00 Diagnostic Test (Pha) (Accu-Chek) 1 ea 02 XX Last administered on 05/24/17 01 :02; Admin Dose 1 EA; Start 05/16/17 at 02:00 Miscellaneous Information 1 ea NOTE XX ; Start 05/15/17 at 22:00 Glucose (Glutose) 15 gm Q15M PRN PO DECREASED GLUCOSE; Start 05/15/17 at 22:00 Glucose (Glutose) 22.5 gm Q15M PRN PO DECREASED GLUCOSE; Start 05/15/17 at 22: 00 Dextrose (D50w Syringe) 25 ml Q15M PRN IV DECREASED GLUCOSE; Start 05/15/17 at 22:00 Dextrose (D50w Syringe) 50 ml Q15M PRN IV DECREASED GLUCOSE; Start 05/15/17 at 22:00 Glucagon (Glucagen) 1 mg Q15M PRN IM DECREASED GLUCOSE; Start 05/15/17 at 22: 00 Glucose (Glutose) 15 gm Q15M PRN BUCCAL DECREASED GLUCOSE; Start 05/15/17 at 22:00 Collagenase 1 applic 1 applic DAILY TOP Last administered on 05/29/17 09:35; Admin Dose 1 APPLIC; Start 05/18/17 at 21:00 Vancomycin HCl (Vancocin) 250 ml @ 125 mls/hr Q96H IVPB Last administered on 05/28/17 17:00; Admin Dose 125 MLS/HR; Start 05/20/17 at 17:00 Insulin Aspart (Adult SC Insulin - Mild Algorithm)... Q4 SC Last administered on 05/23/17 01:20; Admin Dose 1 UNIT; Start 05/21/17 at 13:00 Meropenem/Sodium Chloride (Merrem 500mg/50 ml(Pmx)) 50 ml @ 100 mls/hr Q24H IVPB Last administered on 05/28/17 16:43; Admin Dose 100 MLS/HR; Start 05/23 at 16:00 Amiodarone HCl (Cordarone) 200 mg DAILY GTB Last administered on 05/29/17 09: 34; Admin Dose 200 MG; Start 05/29/17 at 09:00 Donepezil HCl (Aricept) 5 mg DAILY GTB Last administered on 05/29/17 09:33; Admin Dose 5 MG; Start 05/29/17 at 09:00 Famotidine (Pepcid) 20 mg DAILY GTB Last administered on 05/29/17 09:34; Admin Dose 20 MG; Start 05/29/17 at 09:00 Folic Acid (Folic Acid) 1 mg DAILY GTB Last administered on 05/29/17 09:33; Admin Dose 1 MG; Start 05/29/17 at 09:00 Loratadine (Claritin) 10 mg DAILY GTB Last administered on 05/29/17 09:33; Admin Dose 10 MG; Start 05/29/17 at 09:00 Megestrol Acetate (Megace) 40 mg DAILY GTB Last administered on 05/29/17 09: 33; Admin Dose 40 MG; Start 05/29/17 at 09:00 Midodrine (Proamatine) 2.5 mg TID@06,12,18 GTB ; Start 05/29/17 at 12:00 Aspirin (Aspirin) 81 mg DAILY GTB Last administered on 05/29/17 09:33; Admin Dose 81 MG; Start 05/29/17 at 09:00 DAISY ANTONIO May 29, 2017 12:27
[2017-05-29] MEDS: MIDODRINE 2.5 MG TAB GTB SCH ×2 (12:45→17:31)
--- NOTE | 2017-05-29 12:45 | PDOCDIS ---
Discharge Instructions DIAGNOSIS Discharge Diagnosis 1. Septic shock secondary to bacteremia, resolving 2. Hypotension- improved on medications 3. encephalopathy- stable 4. Hyponatremia, resolved 5. Anemia, chronic, CKD related, s/p transfusion- stable 6. ESRD, DD, on HD, electrolyte abnormalities 7. fail to thrive, moderate malnutrition with hypoalbuminemia- PEG in place 8. paroxysmal atrial fibrillation, sinus rhythm, not a candidate for anticoagulant 9. history of cerebrovascular accident 10. aortic stenosis 11. sick sinus syndrome status post permanent pacemaker 12. dyslipidemia, on statin 13. dementia, chronic, stable CONDITION Patient Condition: Good HOME CARE INSTRUCTIONS: Special Diet: GT FeedingYour diet recommendation is: renal diet ACTIVITY: Bathing Restrictions: Shower FOLLOW UP/APPOINTMENTS Follow-up Plan 1. Take medications through [facility] as prescribed 2. You will need 5 more days of antibiotics therapy through PICC line 3. Continue Dialysis as previously scheduled 4. Follow up with your primary care physician in 1 week 5. Follow up with your pipe insulator helper VIV FORD MD May 29, 2017 12:45
--- NOTE | 2017-05-29 12:45 | PDOCDIS ---
Discharge Instructions DIAGNOSIS Discharge Diagnosis 1. Septic shock secondary to bacteremia, resolving 2. Hypotension- improved on medications 3. encephalopathy- stable 4. Hyponatremia, resolved 5. Anemia, chronic, CKD related, s/p transfusion- stable 6. ESRD, DD, on HD, electrolyte abnormalities 7. fail to thrive, moderate malnutrition with hypoalbuminemia- PEG in place 8. paroxysmal atrial fibrillation, sinus rhythm, not a candidate for anticoagulant 9. history of cerebrovascular accident 10. aortic stenosis 11. sick sinus syndrome status post permanent pacemaker 12. dyslipidemia, on statin 13. dementia, chronic, stable CONDITION Patient Condition: Good HOME CARE INSTRUCTIONS: Special Diet: GT FeedingYour diet recommendation is: renal diet ACTIVITY: Bathing Restrictions: Shower FOLLOW UP/APPOINTMENTS Follow-up Plan 1. Take medications through [facility] as prescribed 2. You will need 5 more days of antibiotics therapy through PICC line 3. Continue Dialysis as previously scheduled 4. Follow up with your primary care physician in 1 week 5. Follow up with your commercial drone pilot VIV FORD MD May 29, 2017 12:45
--- NOTE | 2017-05-29 12:45 | PDOCDIS ---
Discharge Instructions DIAGNOSIS Discharge Diagnosis 1. Septic shock secondary to bacteremia, resolving 2. Hypotension- improved on medications 3. encephalopathy- stable 4. Hyponatremia, resolved 5. Anemia, chronic, CKD related, s/p transfusion- stable 6. ESRD, DD, on HD, electrolyte abnormalities 7. fail to thrive, moderate malnutrition with hypoalbuminemia- PEG in place 8. paroxysmal atrial fibrillation, sinus rhythm, not a candidate for anticoagulant 9. history of cerebrovascular accident 10. aortic stenosis 11. sick sinus syndrome status post permanent pacemaker 12. dyslipidemia, on statin 13. dementia, chronic, stable CONDITION Patient Condition: Good HOME CARE INSTRUCTIONS: Special Diet: GT FeedingYour diet recommendation is: renal diet ACTIVITY: Bathing Restrictions: Shower FOLLOW UP/APPOINTMENTS Follow-up Plan 1. Take medications through [facility] as prescribed 2. You will need 5 more days of antibiotics therapy through PICC line 3. Continue Dialysis as previously scheduled 4. Follow up with your primary care physician in 1 week 5. Follow up with your associate professor of management VIV FORD MD May 29, 2017 12:45
--- NOTE | 2017-05-29 14:22 | CONS ---
Date/Time of Note Date/Time of Note DATE: 05/29/17 TIME: 14:21 Consult Date/Type/Reason Admit Date/Time May 15, 2017 at 20:02 Initial Consult Date 05/16/17 Type of Consultation: ID Ordering Provider: SUNIL GARCIA Objective Vital Signs Date Time Temp Pulse Resp B/P Pulse Ox O2 Delivery O2 Flow Rate FiO2 05/29/17 12:00 95 05/29/17 11:37 98.0 19 109/44 100 05/29/17 08:04 Nasal Cannula 2.0 Intake and Output 05/28/17 05/28/17 05/29/17 15:00 23:00 07:00 Intake Total 950 ml 640 ml Output Total 1800 ml Balance -850 ml 640 ml Results/Medications Result Diagram: 05/29/17 0703 05/29/17 0703 Results 24 hrs Laboratory Tests Test 05/28/17 17:15 05/28/17 18:46 05/28/17 21:51 05/29/17 01:25 Vancomycin Level Trough 11.9 Bedside Glucose 117 105 101 Test 05/29/17 05:17 05/29/17 06:26 05/29/17 07:03 05/29/17 09:11 Bedside Glucose 115 130 Lab Scanned Report BLOOD TRANSFUSION White Blood Count 9.7 Red Blood Count 3.37 #L Hemoglobin 10.0 #L Hematocrit 29.5 #L Mean Corpuscular Volume 87.5 Mean Corpuscular Hemoglobin 29.7 Mean Corpuscular Hemoglobin Concent 33.9 Red Cell Distribution Width 17.1 H Platelet Count 85 L Mean Platelet Volume 11.2 H Neutrophils % 82.4 H Lymphocytes % 6.3 L Monocytes % 9.1 Eosinophils % 1.4 Basophils % 0.2 Nucleated Red Blood Cells % 0.0 Neutrophils # 8.0 H Lymphocytes # 0.6 L Monocytes # 0.9 Eosinophils # 0.1 Basophils # 0.0 Nucleated Red Blood Cells # 0.0 Sodium Level 137 Potassium Level 4.1 Chloride Level 101 Carbon Dioxide Level 29 Anion Gap 11 Blood Urea Nitrogen 43 H Creatinine 3.62 H Glucose Level 117 Calcium Level 7.1 L Phosphorus Level 2.9 Magnesium Level 2.0 Albumin 2.0 L Test 05/29/17 12:44 Bedside Glucose 120 Medications Current Medications Ondansetron HCl (Zofran Inj) 4 mg Q6H PRN IV NAUSEA AND/OR VOMITING; Start at 21:30 Acetaminophen (Tylenol Tab) 650 mg Q6H PRN PO PAIN LEVEL 1-3 OR FEVER Last administered on 05/27/17 02:14; Admin Dose 650 MG; Start 05/15/17 at 21:30 Docusate Sodium (Colace) 100 mg Q12H PRN PO CONSTIPATION; Start 05/15/17 at 21 :30 Bisacodyl (Dulcolax) 5 mg DAILY PRN PO CONSTIPATION; Start 05/15/17 at 21:30 Atorvastatin Calcium (Lipitor) 20 mg HS PO Last administered on 05/28/17 21: 56; Admin Dose 20 MG; Start 05/16/17 at 21:00 Diagnostic Test (Pha) (Accu-Chek) 1 ea 02 XX Last administered on 05/24/17 01 :02; Admin Dose 1 EA; Start 05/16/17 at 02:00 Miscellaneous Information 1 ea NOTE XX ; Start 05/15/17 at 22:00 Glucose (Glutose) 15 gm Q15M PRN PO DECREASED GLUCOSE; Start 05/15/17 at 22:00 Glucose (Glutose) 22.5 gm Q15M PRN PO DECREASED GLUCOSE; Start 05/15/17 at 22: 00 Dextrose (D50w Syringe) 25 ml Q15M PRN IV DECREASED GLUCOSE; Start 05/15/17 at 22:00 Dextrose (D50w Syringe) 50 ml Q15M PRN IV DECREASED GLUCOSE; Start 05/15/17 at 22:00 Glucagon (Glucagen) 1 mg Q15M PRN IM DECREASED GLUCOSE; Start 05/15/17 at 22: 00 Glucose (Glutose) 15 gm Q15M PRN BUCCAL DECREASED GLUCOSE; Start 05/15/17 at 22:00 Collagenase 1 applic 1 applic DAILY TOP Last administered on 05/29/17 09:35; Admin Dose 1 APPLIC; Start 05/18/17 at 21:00 Vancomycin HCl (Vancocin) 250 ml @ 125 mls/hr Q96H IVPB Last administered on 05/28/17 17:00; Admin Dose 125 MLS/HR; Start 05/20/17 at 17:00 Insulin Aspart (Novolog Insulin Pen) (Adult SC Insulin - Mild Algorithm)... Q4 SC Last administered on 05/23/17 01:20; Admin Dose 1 UNIT; Start 05/21/17 at 13:00 Amiodarone HCl (Cordarone) 200 mg DAILY GTB Last administered on 05/29/17 09: 34; Admin Dose 200 MG; Start 05/29/17 at 09:00 Donepezil HCl (Aricept) 5 mg DAILY GTB Last administered on 05/29/17 09:33; Admin Dose 5 MG; Start 05/29/17 at 09:00 Famotidine (Pepcid) 20 mg DAILY GTB Last administered on 05/29/17 09:34; Admin Dose 20 MG; Start 05/29/17 at 09:00 Folic Acid (Folic Acid) 1 mg DAILY GTB Last administered on 05/29/17 09:33; Admin Dose 1 MG; Start 05/29/17 at 09:00 Loratadine (Claritin) 10 mg DAILY GTB Last administered on 05/29/17 09:33; Admin Dose 10 MG; Start 05/29/17 at 09:00 Megestrol Acetate (Megace) 40 mg DAILY GTB Last administered on 05/29/17 09: 33; Admin Dose 40 MG; Start 05/29/17 at 09:00 Midodrine (Proamatine) 2.5 mg TID@06,12,18 GTB Last administered on 05/29/17 12:45; Admin Dose 2.5 MG; Start 05/29/17 at 12:00 Aspirin (Aspirin) 81 mg DAILY GTB Last administered on 05/29/17 09:33; Admin Dose 81 MG; Start 05/29/17 at 09:00 Assessment/Plan Chief Complaint/Hosp Course SUBJECTIVE: Lethargic, NAD, afebrile INDWELLINGS: PEG, right IJ PermCath, PICC line placed on 05/22/2017. ANTIMICROBIALS: Meropenem and vancomycin. PHYSICAL EXAMINATION: GENERAL: This is a fragile, chronically ill-appearing, elderly man who is in no distress. HEENT: Head atraumatic, normocephalic. Sclerae anicteric. Buccal mucosa dry. NECK: Supple. Trachea midline. CHEST: Rise symmetrical. Breath sounds diminished to bases. HEART: S1, S2. ABDOMEN: Soft. Bowel tones present. EXTREMITIES: Without cyanosis. ASSESSMENT: 1. S/p septic shock 2. Acute encephalopathy. 3. Acute on chronic anemia 4. Healthcare-associated pneumonia, poss ongoing aspiration. 5. End-stage renal disease, hemodialysis dependent. 6. Status post enterococcal bacteremia. Repeat blood cultures negative. 7. Coronary artery disease with a history of permanent pacemaker placement. PLAN: The patient remains unchanged. He is chemical code. A 2D echo on admission revealed no vegetations. Repeat blood cultures have been negative. We will continue him on current antimicrobials for four more days. Continue anti-aspiration measures. [facility] staff Problems: JACK CHAN NP May 29, 2017 14:22
[2017-05-29] MEDS: IPRATROPIUM (NEB) 0.5 MG/2.5 ML AMP HHN PRN ×2 (16:08→21:27)
[2017-05-29] MEDS: LEVALBUTEROL (NEB) 0.63 MG/3 ML AMP HHN PRN ×2 (16:08→21:27)
--- NOTE | 2017-05-29 17:19 | CONS ---
Date/Time of Note Date/Time of Note DATE: 05/29/17 TIME: 17:18 Consult Date/Type/Reason Admit Date/Time May 15, 2017 at 20:02 Initial Consult Date 05/16/17 Type of Consultation: CARDIOLOGY Ordering Provider: SUNIL GARCIA Subjective CARD F/U: S: d/w son D/W STAFF AND rhythm was reviewed. pt remains in paced rhythm remains nonverbal and does not answer my questions. no active bleeding is reported. 0: General: thin man. no acute distress HEENT: NC/AT. pupils are equal. round. s/p NG tube. NECK: . no stridor. CV: RRR systolic murmur; no gallop or rubs. PULM: no wheezing. + mild rhonchi. GI: SOFT, NT, ND, no rebound or guarding S/P PEG Extremity: trace B/L LE edema. no clubbing. neuro: awake but does not answer my questions. Psych: appears anxious rectal: deferred chest: s/p R HD access in place. ECG NSR. ECHO reviewed recently: 1. Normal left ventricular systolic function. Normal left ventricular cavity size. Left ventricle not well visualized. Moderate concentric left ventricular hypertrophy. Ejection fraction is visually estimated at 60 %. Abnormal Diastolic Function. 2. Mitral valve is not well visualized. Mild mitral leaflet calcification. Mild mitral annular calcification. Trace mitral regurgitation. 3. Aortic valve not well visualized. Moderate aortic stenosis. Aortic valve Max velocity 2.90 m/sec. Max PG 34.00 mmHg. Mean PG 18.00 mmHg. Aortic cusps appear moderately calcified. 4. Normal appearance of the tricuspid valve. Tricuspid valve not well visualized. Estimated peak PA systolic pressure 29 mmHg. There is mild tricuspid regurgitation. 5. very suboptimal study. Objective Vital Signs Date Time Temp Pulse Resp B/P Pulse Ox O2 Delivery O2 Flow Rate FiO2 05/29/17 16:35 89 05/29/17 16:29 98.0 18 108/57 100 05/29/17 16:10 Nasal Cannula 2.0 Intake and Output 05/28/17 05/28/17 05/29/17 15:00 23:00 07:00 Intake Total 950 ml 640 ml Output Total 1800 ml Balance -850 ml 640 ml Results/Medications Result Diagram: 05/29/17 0703 05/29/17 0703 Results 24 hrs Laboratory Tests Test 05/28/17 18:46 05/28/17 21:51 05/29/17 01:25 05/29/17 05:17 Bedside Glucose 117 105 101 115 Test 05/29/17 06:26 05/29/17 07:03 05/29/17 09:11 05/29/17 12:44 Lab Scanned Report BLOOD TRANSFUSION White Blood Count 9.7 Red Blood Count 3.37 #L Hemoglobin 10.0 #L Hematocrit 29.5 #L Mean Corpuscular Volume 87.5 Mean Corpuscular Hemoglobin 29.7 Mean Corpuscular Hemoglobin Concent 33.9 Red Cell Distribution Width 17.1 H Platelet Count 85 L Mean Platelet Volume 11.2 H Neutrophils % 82.4 H Lymphocytes % 6.3 L Monocytes % 9.1 Eosinophils % 1.4 Basophils % 0.2 Nucleated Red Blood Cells % 0.0 Neutrophils # 8.0 H Lymphocytes # 0.6 L Monocytes # 0.9 Eosinophils # 0.1 Basophils # 0.0 Nucleated Red Blood Cells # 0.0 Sodium Level 137 Potassium Level 4.1 Chloride Level 101 Carbon Dioxide Level 29 Anion Gap 11 Blood Urea Nitrogen 43 H Creatinine 3.62 H Glucose Level 117 Calcium Level 7.1 L Phosphorus Level 2.9 Magnesium Level 2.0 Albumin 2.0 L Bedside Glucose 130 120 Test 05/29/17 17:14 Bedside Glucose 111 Medications Current Medications Ondansetron HCl (Zofran Inj) 4 mg Q6H PRN IV NAUSEA AND/OR VOMITING; Start at 21:30 Acetaminophen (Tylenol Tab) 650 mg Q6H PRN PO PAIN LEVEL 1-3 OR FEVER Last administered on 05/27/17 02:14; Admin Dose 650 MG; Start 05/15/17 at 21:30 Docusate Sodium (Colace) 100 mg Q12H PRN PO CONSTIPATION; Start 05/15/17 at 21 :30 Bisacodyl (Dulcolax) 5 mg DAILY PRN PO CONSTIPATION; Start 05/15/17 at 21:30 Atorvastatin Calcium (Lipitor) 20 mg HS PO Last administered on 05/28/17 21: 56; Admin Dose 20 MG; Start 05/16/17 at 21:00 Diagnostic Test (Pha) (Accu-Chek) 1 ea 02 XX Last administered on 05/24/17 01 :02; Admin Dose 1 EA; Start 05/16/17 at 02:00 Miscellaneous Information 1 ea NOTE XX ; Start 05/15/17 at 22:00 Glucose (Glutose) 15 gm Q15M PRN PO DECREASED GLUCOSE; Start 05/15/17 at 22:00 Glucose (Glutose) 22.5 gm Q15M PRN PO DECREASED GLUCOSE; Start 05/15/17 at 22: 00 Dextrose (D50w Syringe) 25 ml Q15M PRN IV DECREASED GLUCOSE; Start 05/15/17 at 22:00 Dextrose (D50w Syringe) 50 ml Q15M PRN IV DECREASED GLUCOSE; Start 05/15/17 at 22:00 Glucagon (Glucagen) 1 mg Q15M PRN IM DECREASED GLUCOSE; Start 05/15/17 at 22: 00 Glucose (Glutose) 15 gm Q15M PRN BUCCAL DECREASED GLUCOSE; Start 05/15/17 at 22:00 Collagenase 1 applic 1 applic DAILY TOP Last administered on 05/29/17 09:35; Admin Dose 1 APPLIC; Start 05/18/17 at 21:00 Vancomycin HCl (Vancocin) 250 ml @ 125 mls/hr Q96H IVPB Last administered on 05/28/17 17:00; Admin Dose 125 MLS/HR; Start 05/20/17 at 17:00 Insulin Aspart (Novolog Insulin Pen) (Adult SC Insulin - Mild Algorithm)... Q4 SC Last administered on 05/23/17 01:20; Admin Dose 1 UNIT; Start 05/21/17 at 13:00 Amiodarone HCl (Cordarone) 200 mg DAILY GTB Last administered on 05/29/17 09: 34; Admin Dose 200 MG; Start 05/29/17 at 09:00 Donepezil HCl (Aricept) 5 mg DAILY GTB Last administered on 05/29/17 09:33; Admin Dose 5 MG; Start 05/29/17 at 09:00 Famotidine (Pepcid) 20 mg DAILY GTB Last administered on 05/29/17 09:34; Admin Dose 20 MG; Start 05/29/17 at 09:00 Folic Acid (Folic Acid) 1 mg DAILY GTB Last administered on 05/29/17 09:33; Admin Dose 1 MG; Start 05/29/17 at 09:00 Loratadine (Claritin) 10 mg DAILY GTB Last administered on 05/29/17 09:33; Admin Dose 10 MG; Start 05/29/17 at 09:00 Megestrol Acetate (Megace) 40 mg DAILY GTB Last administered on 05/29/17 09: 33; Admin Dose 40 MG; Start 05/29/17 at 09:00 Midodrine (Proamatine) 2.5 mg TID@06,12,18 GTB Last administered on 05/29/17 12:45; Admin Dose 2.5 MG; Start 05/29/17 at 12:00 Aspirin (Aspirin) 81 mg DAILY GTB Last administered on 05/29/17 09:33; Admin Dose 81 MG; Start 05/29/17 at 09:00 Assessment/Plan Chief Complaint/Hosp Course 1. abnormal ECG and intermittent arrhythmia with P afib and NSVT 2. hypotension/ shcok/sepsis./ bacteremia. 3. ESRD ON HD 4. HX CAD, [place] 5. HX dementia 6. P afib 7. sick sinus syndrome 8. s/p PPM 9/ encephalopathy 10. hx CVA 11. severe and worsening anemia . 12. Dyslipidemia: on lipitor 13. severe anemia, . Recommendations: HD as per renal Pacemaker was interrogated 05.16.17 and personally reviewed. normal pacing function transfusion prn. will defer to IM team. pt has not been anticoagulated due to concerns about anemia, fall and bleeding. unable to tolerate betablocker so far due to hypotension. ASA cont lipitor replace lytes prn abx as per ID REC. . Thank you for his referral. I will continue to follow along with you. MELVIN BRODERICK MD [facility] Problems: MELVIN BRODERICK MD May 29, 2017 17:19
[2017-05-29] MEDS: ATORVASTATIN 20 MG TAB PO SCH (21:00)
[2017-05-30] VITALS (18 sets, daily range): BP systolic 91–118; BP diastolic 35–62; PULSE 70–121; RESP 18–24
[2017-05-30] MEDS: Insulin NOVOLOG SS MILD Algorithm (NPO/TPN/ENTERAL FEEDS) SC SCH ×6 (01:00→21:00)
[2017-05-30] MEDS: ACCU-CHEK XX SCH (02:00)
[2017-05-30] MEDS: LEVALBUTEROL (NEB) 0.63 MG/3 ML AMP HHN PRN ×2 (04:12→07:32)
[2017-05-30] MEDS: IPRATROPIUM (NEB) 0.5 MG/2.5 ML AMP HHN PRN ×2 (04:12→07:32)
[2017-05-30] MEDS: MIDODRINE 2.5 MG TAB GTB SCH ×3 (05:32→18:30)
[2017-05-30] MEDS: FAMOTIDINE 20 MG TAB GTB SCH (08:36)
[2017-05-30] MEDS: DONEPEZIL 5 MG TAB GTB SCH (08:36)
[2017-05-30] MEDS: LORATADINE 10 MG TAB GTB SCH (08:36)
[2017-05-30] MEDS: MEGESTROL 40 MG TAB GTB SCH (08:36)
[2017-05-30] MEDS: ASPIRIN 81 MG TAB GTB SCH (08:36)
[2017-05-30] MEDS: FOLIC ACID 1 MG TAB GTB SCH (08:37)
[2017-05-30] MEDS: AMIODARONE 200 MG TAB GTB SCH (08:37)
[2017-05-30] MEDS: BALSAM PERU/CASTOR OIL 60 GM TUBE TOP SCH ×2 (08:38→21:21)
[2017-05-30] MEDS: COLLAGENASE 30 GM TUBE TOP SCH (08:38)
--- NOTE | 2017-05-30 10:35 | CONS ---
Date/Time of Note Date/Time of Note DATE: 05/30/17 TIME: 10:35 Consult Date/Type/Reason Admit Date/Time May 15, 2017 at 20:02 Initial Consult Date 05/16/17 Type of Consultation: CARDIOLOGY Ordering Provider: SUNIL GARCIA Subjective CARD F/U: S: d/w Physicans. D/W STAFF AND rhythm was reviewed. pt remains in paced rhythm remains nonverbal and does not answer my questions. no active bleeding is reported. 0: General: thin man. no acute distress HEENT: NC/AT. pupils are equal. round. s/p NG tube. NECK: . no stridor. CV: RRR systolic murmur; no gallop or rubs. PULM: no wheezing. + mild rhonchi. GI: SOFT, NT, ND, no rebound or guarding S/P PEG Extremity: trace B/L LE edema. no clubbing. neuro: awake but does not answer my questions. Psych: appears anxious rectal: deferred chest: s/p R HD access in place. ECG NSR. ECHO reviewed recently: 1. Normal left ventricular systolic function. Normal left ventricular cavity size. Left ventricle not well visualized. Moderate concentric left ventricular hypertrophy. Ejection fraction is visually estimated at 60 %. Abnormal Diastolic Function. 2. Mitral valve is not well visualized. Mild mitral leaflet calcification. Mild mitral annular calcification. Trace mitral regurgitation. 3. Aortic valve not well visualized. Moderate aortic stenosis. Aortic valve Max velocity 2.90 m/sec. Max PG 34.00 mmHg. Mean PG 18.00 mmHg. Aortic cusps appear moderately calcified. 4. Normal appearance of the tricuspid valve. Tricuspid valve not well visualized. Estimated peak PA systolic pressure 29 mmHg. There is mild tricuspid regurgitation. 5. very suboptimal study. Objective Vital Signs Date Time Temp Pulse Resp B/P Pulse Ox O2 Delivery O2 Flow Rate FiO2 05/30/17 08:39 93 05/30/17 07:44 98.2 22 115/58 95 05/30/17 07:33 Nasal Cannula 2.0 Intake and Output 05/29/17 05/29/17 05/30/17 14:59 22:59 06:59 Intake Total 630 ml Balance 630 ml Results/Medications Result Diagram: 05/30/17 0826 05/30/17 0826 Results 24 hrs Laboratory Tests Test 05/29/17 12:44 05/29/17 17:14 05/29/17 21:44 05/30/17 05:28 Bedside Glucose 120 111 124 125 Test 05/30/17 05:29 05/30/17 08:12 05/30/17 08:26 Bedside Glucose 130 107 White Blood Count 11.3 H Red Blood Count 3.60 L Hemoglobin 10.7 L Hematocrit 32.3 L Mean Corpuscular Volume 89.7 Mean Corpuscular Hemoglobin 29.7 Mean Corpuscular Hemoglobin Concent 33.1 Red Cell Distribution Width 17.9 H Platelet Count 100 L Mean Platelet Volume 10.8 H Neutrophils % 79.3 H Lymphocytes % 9.9 L Monocytes % 8.9 Eosinophils % 1.1 Basophils % 0.3 Nucleated Red Blood Cells % 0.0 Neutrophils # 9.0 H Lymphocytes # 1.1 Monocytes # 1.0 H Eosinophils # 0.1 Basophils # 0.0 Nucleated Red Blood Cells # 0.0 Sodium Level 136 Potassium Level 4.9 Chloride Level 100 Carbon Dioxide Level 26 Anion Gap 15 Blood Urea Nitrogen 57 H Creatinine 4.31 H Glucose Level 106 Calcium Level 7.3 L Phosphorus Level 3.5 Magnesium Level 2.2 Albumin 2.2 L Medications Current Medications Ondansetron HCl (Zofran Inj) 4 mg Q6H PRN IV NAUSEA AND/OR VOMITING; Start at 21:30 Acetaminophen (Tylenol Tab) 650 mg Q6H PRN PO PAIN LEVEL 1-3 OR FEVER Last administered on 05/27/17 02:14; Admin Dose 650 MG; Start 05/15/17 at 21:30 Docusate Sodium (Colace) 100 mg Q12H PRN PO CONSTIPATION; Start 05/15/17 at 21 :30 Bisacodyl (Dulcolax) 5 mg DAILY PRN PO CONSTIPATION; Start 05/15/17 at 21:30 Atorvastatin Calcium (Lipitor) 20 mg HS PO Last administered on 05/29/17 21: 00; Admin Dose 20 MG; Start 05/16/17 at 21:00 Diagnostic Test (Pha) (Accu-Chek) 1 ea 02 XX Last administered on 05/24/17 01 :02; Admin Dose 1 EA; Start 05/16/17 at 02:00 Miscellaneous Information 1 ea NOTE XX ; Start 05/15/17 at 22:00 Glucose (Glutose) 15 gm Q15M PRN PO DECREASED GLUCOSE; Start 05/15/17 at 22:00 Glucose (Glutose) 22.5 gm Q15M PRN PO DECREASED GLUCOSE; Start 05/15/17 at 22: 00 Dextrose (D50w Syringe) 25 ml Q15M PRN IV DECREASED GLUCOSE; Start 05/15/17 at 22:00 Dextrose (D50w Syringe) 50 ml Q15M PRN IV DECREASED GLUCOSE; Start 05/15/17 at 22:00 Glucagon (Glucagen) 1 mg Q15M PRN IM DECREASED GLUCOSE; Start 05/15/17 at 22: 00 Glucose (Glutose) 15 gm Q15M PRN BUCCAL DECREASED GLUCOSE; Start 05/15/17 at 22:00 Collagenase 1 applic 1 applic DAILY TOP Last administered on 05/30/17 08:38; Admin Dose 1 APPLIC; Start 05/18/17 at 21:00 Vancomycin HCl (Vancocin) 250 ml @ 125 mls/hr Q96H IVPB Last administered on 05/28/17 17:00; Admin Dose 125 MLS/HR; Start 05/20/17 at 17:00 Insulin Aspart (Novolog Insulin Pen) (Adult SC Insulin - Mild Algorithm)... Q4 SC Last administered on 05/23/17 01:20; Admin Dose 1 UNIT; Start 05/21/17 at 13:00 Amiodarone HCl (Cordarone) 200 mg DAILY GTB Last administered on 05/30/17 08: 37; Admin Dose 200 MG; Start 05/29/17 at 09:00 Donepezil HCl (Aricept) 5 mg DAILY GTB Last administered on 05/30/17 08:36; Admin Dose 5 MG; Start 05/29/17 at 09:00 Famotidine (Pepcid) 20 mg DAILY GTB Last administered on 05/30/17 08:36; Admin Dose 20 MG; Start 05/29/17 at 09:00 Folic Acid (Folic Acid) 1 mg DAILY GTB Last administered on 05/30/17 08:37; Admin Dose 1 MG; Start 05/29/17 at 09:00 Loratadine (Claritin) 10 mg DAILY GTB Last administered on 05/30/17 08:36; Admin Dose 10 MG; Start 10/31/17 at 09:00 Megestrol Acetate (Megace) 40 mg DAILY GTB Last administered on 05/30/17 08:36 ; Admin Dose 40 MG; Start 05/29/17 at 09:00 Midodrine (Proamatine) 2.5 mg TID@06,12,18 GTB Last administered on 05/30/17 05:32; Admin Dose 2.5 MG; Start 05/29/17 at 12:00 Aspirin (Aspirin) 81 mg DAILY GTB Last administered on 05/30/17 08:36; Admin Dose 81 MG; Start 05/29/17 at 09:00 Assessment/Plan Chief Complaint/Hosp Course 1. abnormal ECG and intermittent arrhythmia with P afib and NSVT 2. hypotension/ shcok/sepsis./ bacteremia. 3. ESRD ON HD 4. HX CAD, [place] 5. HX dementia 6. P afib 7. sick sinus syndrome 8. s/p PPM 9/ encephalopathy 10. hx CVA 11. severe and worsening anemia . 12. Dyslipidemia: on lipitor 13. severe anemia, . Recommendations: HD as per renal Pacemaker was interrogated 05.16.17 and personally reviewed. normal pacing function transfusion prn. will defer to IM team. pt has not been anticoagulated due to concerns about anemia, fall and bleeding. unable to tolerate betablocker so far due to hypotension. ASA cont lipitor replace lytes prn abx as per ID REC. prognosis is poor. Thank you for his referral. I will continue to follow along with you. MELVIN BRODERICK MD [facility] Problems: MELVIN BRODERICK MD May 30, 2017 10:35
--- NOTE | 2017-05-30 11:19 | PN ---
Date/Time of Note Date/Time of Note DATE: 05/30/17 TIME: :18 Assessment/Plan VTE Prophylaxis VTE Prophylaxis Intervention: SCD's Lines/Catheters IV Catheter Type (from Nrsg): PICC Line Central line still needed: Yes (meds) Assessment/Plan Chief Complaint/Hosp Course Summary Assessment and Plan: Assessment: Failure to thrive, malnutrition with hypoalbuminemia, Anemia, chronic, CKD related, s/p transfusion ESRD, on HD Hypotension secondary to dehydration and/or possible early sepsis Lactic acidosis Suspected healthcare associated pneumonia Paroxysmal atrial fibrillation- controlled currently SR History of cerebrovascular accident. Aortic stenosis. Sick sinus syndrome with permanent pacemaker Dyslipidemia, on statin. Dementia/chronic Plan: Anemia remains stable no overt signs of GI bleed Continue to monitor Hgb Tolerating TF well, TF at goal PEG care d/c planning Continue supportive care Patient seen in collaboration with Dr. Rosado Subjective: Course reviewed with nursing staff Patient interviewed and examined All labs, imaging and other results reviewed No change, patient currently receiving HD PEG working well Chemical code PHYSICAL EXAMINATION: GENERAL: Well developed, well nourished, alert & oriented x 3, in no acute distress SKIN: No lesions, no stigmata chronic liver disease, no evidence of bleeding diathesis, peg in place LYMPHATIC: No palpable lymphadenopathy. HEAD: Normocephalic, atraumatic, no tenderness. EYES: Pupils equal reactive to light and accommodation, full extraocular movements, sclera clear, non-icteric, no discharge. EARS/NOSE AND THROAT: Ears normal, nose normal, oropharynx normal, oral membranes well hydrated without lesions. NECK: Supple, no masses, thyroid normal, JVP within normal limits, carotids normal without bruits. CHEST: Inspection within normal limits. CARDIOVASCULAR: Heart: Regular rate and rhythm, n RESPIRATORY: Lungs clear to auscultation and percussion, no wheezing, no rubs GASTROINTESTINAL AND LIVER: Abdomen: Soft, non tenderness, non-distended, no hernias, no masses, no organomegaly, no ascites, no guarding, no rebound tenderness, normoactive bowel sounds. Rectal: Deferred. GENITOURINARY: Male genitalia within normal limits. Problems: Exam/Review of Systems Vital Signs Vitals Vital Signs Date Time Temp Pulse Resp B/P Pulse Ox O2 Delivery O2 Flow Rate FiO2 05/30/17 08:39 93 05/30/17 07:44 98.2 22 115/58 95 05/30/17 07:33 Nasal Cannula 2.0 Intake and Output 05/29/17 05/29/17 05/30/17 15:00 23:00 07:00 Intake Total 630 ml Balance 630 ml Results Result Diagram: 05/30/17 0826 05/30/17 0826 Results 24 hrs Laboratory Tests Test 05/29/17 12:44 05/29/17 17:14 05/29/17 21:44 05/30/17 05:28 Bedside Glucose 120 111 124 125 Test 05/30/17 05:29 05/30/17 08:12 05/30/17 08:26 Bedside Glucose 130 107 White Blood Count 11.3 H Red Blood Count 3.60 L Hemoglobin 10.7 L Hematocrit 32.3 L Mean Corpuscular Volume 89.7 Mean Corpuscular Hemoglobin 29.7 Mean Corpuscular Hemoglobin Concent 33.1 Red Cell Distribution Width 17.9 H Platelet Count 100 L Mean Platelet Volume 10.8 H Neutrophils % 79.3 H Lymphocytes % 9.9 L Monocytes % 8.9 Eosinophils % 1.1 Basophils % 0.3 Nucleated Red Blood Cells % 0.0 Neutrophils # 9.0 H Lymphocytes # 1.1 Monocytes # 1.0 H Eosinophils # 0.1 Basophils # 0.0 Nucleated Red Blood Cells # 0.0 Sodium Level 136 Potassium Level 4.9 Chloride Level 100 Carbon Dioxide Level 26 Anion Gap 15 Blood Urea Nitrogen 57 H Creatinine 4.31 H Glucose Level 106 Calcium Level 7.3 L Phosphorus Level 3.5 Magnesium Level 2.2 Albumin 2.2 L Medications Medications Current Medications Ondansetron HCl (Zofran Inj) 4 mg Q6H PRN IV NAUSEA AND/OR VOMITING; Start at 21:30 Acetaminophen (Tylenol Tab) 650 mg Q6H PRN PO PAIN LEVEL 1-3 OR FEVER Last administered on 05/27/17 02:14; Admin Dose 650 MG; Start 05/15/17 at 21:30 Docusate Sodium (Colace) 100 mg Q12H PRN PO CONSTIPATION; Start 05/15/17 at 21 :30 Bisacodyl (Dulcolax) 5 mg DAILY PRN PO CONSTIPATION; Start 05/15/17 at 21:30 Atorvastatin Calcium (Lipitor) 20 mg HS PO Last administered on 05/29/17 21: 00; Admin Dose 20 MG; Start 05/16/17 at 21:00 Diagnostic Test (Pha) (Accu-Chek) 1 ea 02 XX Last administered on 05/24/17 01 :02; Admin Dose 1 EA; Start 05/16/17 at 02:00 Miscellaneous Information 1 ea NOTE XX ; Start 05/15/17 at 22:00 Glucose (Glutose) 15 gm Q15M PRN PO DECREASED GLUCOSE; Start 05/15/17 at 22:00 Glucose (Glutose) 22.5 gm Q15M PRN PO DECREASED GLUCOSE; Start 05/15/17 at 22: 00 Dextrose (D50w Syringe) 25 ml Q15M PRN IV DECREASED GLUCOSE; Start 05/15/17 at 22:00 Dextrose (D50w Syringe) 50 ml Q15M PRN IV DECREASED GLUCOSE; Start 05/15/17 at 22:00 Glucagon (Glucagen) 1 mg Q15M PRN IM DECREASED GLUCOSE; Start 05/15/17 at 22: 00 Glucose (Glutose) 15 gm Q15M PRN BUCCAL DECREASED GLUCOSE; Start 05/15/17 at 22:00 Collagenase 1 applic 1 applic DAILY TOP Last administered on 05/30/17 08:38; Admin Dose 1 APPLIC; Start 05/18/17 at 21:00 Vancomycin HCl (Vancocin) 250 ml @ 125 mls/hr Q96H IVPB Last administered on 05/28/17 17:00; Admin Dose 125 MLS/HR; Start 05/20/17 at 17:00 Insulin Aspart (Novolog Insulin Pen) (Adult SC Insulin - Mild Algorithm)... Q4 SC Last administered on 05/23/17 01:20; Admin Dose 1 UNIT; Start 05/21/17 at 13:00 Amiodarone HCl (Cordarone) 200 mg DAILY GTB Last administered on 05/30/17 08: 37; Admin Dose 200 MG; Start 05/29/17 at 09:00 Donepezil HCl (Aricept) 5 mg DAILY GTB Last administered on 05/30/17 08:36; Admin Dose 5 MG; Start 05/29/17 at 09:00 Famotidine (Pepcid) 20 mg DAILY GTB Last administered on 05/30/17 08:36; Admin Dose 20 MG; Start 05/29/17 at 09:00 Folic Acid (Folic Acid) 1 mg DAILY GTB Last administered on 05/30/17 08:37; Admin Dose 1 MG; Start 05/29/17 at 09:00 Loratadine (Claritin) 10 mg DAILY GTB Last administered on 05/30/17 08:36; Admin Dose 10 MG; Start 05/29/17 at 09:00 Megestrol Acetate (Megace) 40 mg DAILY GTB Last administered on 05/30/17 08:36 ; Admin Dose 40 MG; Start 05/29/17 at 09:00 Midodrine (Proamatine) 2.5 mg TID@06,12,18 GTB Last administered on 05/30/17 05:32; Admin Dose 2.5 MG; Start 05/29/17 at 12:00 Aspirin (Aspirin) 81 mg DAILY GTB Last administered on 05/30/17 08:36; Admin Dose 81 MG; Start 05/29/17 at 09:00 DAISY ANTONIO May 30, 2017 11:19
--- NOTE | 2017-05-30 12:46 | PN ---
Date/Time of Note Date/Time of Note DATE: 05/30/17 TIME: 12:45 Assessment/Plan VTE Prophylaxis VTE Prophylaxis Intervention: contraindicated Lines/Catheters IV Catheter Type (from Nrsg): PICC Line Central line still needed: Yes Assessment/Plan Assessment/Plan 1. Septic shock secondary to bacteremia, resolving - Patient had +blood cultures for enterococcus and ID on board. Recommendations appreciated. Currently on Vancomycin and will continue for 4 more days - Repeat blood cultures are negative. - ECHO- no vegetations seen 2. Hypotension - labile, depends on HD - Bp appears stable - On midodrine, patient's son understands this may be harmful in the long run, but wishes to risk the medication to keep patient's BP elevated. 3. Encephalopathy -Likely baseline, no change -this level of dementia/encephalopathy was seen previously a few weeks ago -repeat CT not showing any acute issues 4. Hyponatremia, resolved - Will continue to monitor - Urine studies not possible 2/2 no urine production -tube feeds with water flush, Iv fluids, monitor 5. Anemia, chronic, CKD related, s/p transfusion - Hbg this am 10.7 - likely 2/2 chronic disease and repeated daily blood draws - Continue to monitor and transfuse if <7 6. ESRD, DD, on HD, electrolyte abnormalities - Nephrology on board and consultation appreciated - Discussed with son the effects HD has been on his father but still wants to continue. 7. fail to thrive, moderate malnutrition with hypoalbuminemia - PEG in place and on TF 8. paroxysmal atrial fibrillation, sinus rhythm, not a candidate for anticoagulant - Cardiology on board and consultation appreciated. HR controlled 9. history of cerebrovascular accident 10. aortic stenosis 11. sick sinus syndrome status post permanent pacemaker - pacer interrogated and shows normal pacing function 12. dyslipidemia, on statin 13. dementia, chronic, stable 14. Disposition - If patient remains stable, will d/c to SNF with 3 more days of Vancomycin Subjective 24 Hr Interval Summary Free Text/Dictation Patient still resting comfortably in NAD. Opens eyes to voice and touch but still nonverbal. Per nursing, patient had secretions this am but appears more fluid overload picture and in need of dialysis. Exam/Review of Systems Vital Signs Vitals Vital Signs Date Time Temp Pulse Resp B/P Pulse Ox O2 Delivery O2 Flow Rate FiO2 05/30/17 12:19 121 05/30/17 12:12 98.0 24 92/35 98 05/30/17 07:33 Nasal Cannula 2.0 Intake and Output 05/29/17 05/29/17 05/30/17 15:00 23:00 07:00 Intake Total 630 ml Balance 630 ml Exam General: frail appearing, awake but not following commands HEENT: Atraumatic, normocephalic. Neck: Supple with full range of motion. Lungs: Crackles bases bilaterally, no wheezing appreciated Heart: Normal S1-S2, regular rate, irregularly irregular rhythm Abdomen: Soft , nontender, nondistended , bowel sounds are present. No guarding no rebound tenderness. PEG in place Extremities: +pedal edema b/l. Normal to inspection, no cyanosis Neuro: follows minimal command, moves all extremities spontaneously Skin: Sacral skin wound, multiple other pressure wounds Results Result Diagram: 05/30/1782505/30/17825 Results 24 hrs Laboratory Tests Test 05/29/17 17:14 05/29/17 21:44 05/30/17 05:28 05/30/17 05:29 Bedside Glucose 111 124 125 130 Test 05/30/17 08:12 05/30/17 08:26 05/30/17 12:41 Bedside Glucose 107 128 White Blood Count 11.3 H Red Blood Count 3.60 L Hemoglobin 10.7 L Hematocrit 32.3 L Mean Corpuscular Volume 89.7 Mean Corpuscular Hemoglobin 29.7 Mean Corpuscular Hemoglobin Concent 33.1 Red Cell Distribution Width 17.9 H Platelet Count 100 L Mean Platelet Volume 10.8 H Neutrophils % 79.3 H Lymphocytes % 9.9 L Monocytes % 8.9 Eosinophils % 1.1 Basophils % 0.3 Nucleated Red Blood Cells % 0.0 Neutrophils # 9.0 H Lymphocytes # 1.1 Monocytes # 1.0 H Eosinophils # 0.1 Basophils # 0.0 Nucleated Red Blood Cells # 0.0 Sodium Level 136 Potassium Level 4.9 Chloride Level 100 Carbon Dioxide Level 26 Anion Gap 15 Blood Urea Nitrogen 57 H Creatinine 4.31 H Glucose Level 106 Calcium Level 7.3 L Phosphorus Level 3.5 Magnesium Level 2.2 Albumin 2.2 L Medications Medications Current Medications Ondansetron HCl (Zofran Inj) 4 mg Q6H PRN IV NAUSEA AND/OR VOMITING; Start at 21:30 Acetaminophen (Tylenol Tab) 650 mg Q6H PRN PO PAIN LEVEL 1-3 OR FEVER Last administered on 05/27/17 02:14; Admin Dose 650 MG; Start 05/15/17 at 21:30 Docusate Sodium (Colace) 100 mg Q12H PRN PO CONSTIPATION; Start 05/15/17 at 21 :30 Bisacodyl (Dulcolax) 5 mg DAILY PRN PO CONSTIPATION; Start 05/15/17 at 21:30 Atorvastatin Calcium (Lipitor) 20 mg HS PO Last administered on 05/29/17 21: 00; Admin Dose 20 MG; Start 05/16/17 at 21:00 Diagnostic Test (Pha) (Accu-Chek) 1 ea 02 XX Last administered on 05/24/17 01 :02; Admin Dose 1 EA; Start 05/16/17 at 02:00 Miscellaneous Information 1 ea NOTE XX ; Start 05/15/17 at 22:00 Glucose (Glutose) 15 gm Q15M PRN PO DECREASED GLUCOSE; Start 05/15/17 at 22:00 Glucose (Glutose) 22.5 gm Q15M PRN PO DECREASED GLUCOSE; Start 05/15/17 at 22: 00 Dextrose (D50w Syringe) 25 ml Q15M PRN IV DECREASED GLUCOSE; Start 05/15/17 at 22:00 Dextrose (D50w Syringe) 50 ml Q15M PRN IV DECREASED GLUCOSE; Start 05/15/17 at 22:00 Glucagon (Glucagen) 1 mg Q15M PRN IM DECREASED GLUCOSE; Start 05/15/17 at 22: 00 Glucose (Glutose) 15 gm Q15M PRN BUCCAL DECREASED GLUCOSE; Start 05/15/17 at 22:00 Collagenase 1 applic 1 applic DAILY TOP Last administered on 05/30/17 08:38; Admin Dose 1 APPLIC; Start 05/18/17 at 21:00 Vancomycin HCl (Vancocin) 250 ml @ 125 mls/hr Q96H IVPB Last administered on 05/28/17 17:00; Admin Dose 125 MLS/HR; Start 05/20/17 at 17:00 Insulin Aspart (Novolog Insulin Pen) (Adult SC Insulin - Mild Algorithm)... Q4 SC Last administered on 05/23/17 01:20; Admin Dose 1 UNIT; Start 05/21/17 at 13:00 Amiodarone HCl (Cordarone) 200 mg DAILY GTB Last administered on 05/30/17 08: 37; Admin Dose 200 MG; Start 05/29/17 at 09:00 Donepezil HCl (Aricept) 5 mg DAILY GTB Last administered on 05/30/17 08:36; Admin Dose 5 MG; Start 05/29/17 at 09:00 Famotidine (Pepcid) 20 mg DAILY GTB Last administered on 05/30/17 08:36; Admin Dose 20 MG; Start 05/29/17 at 09:00 Folic Acid (Folic Acid) 1 mg DAILY GTB Last administered on 05/30/17 08:37; Admin Dose 1 MG; Start 05/29/17 at 09:00 Loratadine (Claritin) 10 mg DAILY GTB Last administered on 05/30/17 08:36; Admin Dose 10 MG; Start 05/29/17 at 09:00 Megestrol Acetate (Megace) 40 mg DAILY GTB Last administered on 05/30/17 08:36 ; Admin Dose 40 MG; Start 05/29/17 at 09:00 Midodrine (Proamatine) 2.5 mg TID@06,12,18 GTB Last administered on 05/30/17 12:25; Admin Dose 2.5 MG; Start 05/29/17 at 12:00 Aspirin (Aspirin) 81 mg DAILY GTB Last administered on 05/30/17 08:36; Admin Dose 81 MG; Start 05/29/17 at 09:00 VIV FORD MD May 30, 2017 12:46
--- NOTE | 2017-05-30 13:49 | CONS ---
Date/Time of Note Date/Time of Note DATE: 05/30/17 TIME: 13:46 Consult Date/Type/Reason Admit Date/Time May 15, 2017 at 20:02 Initial Consult Date 05/16/17 Type of Consultation: ID Ordering Provider: SUNIL GARCIA Objective Vital Signs Date Time Temp Pulse Resp B/P Pulse Ox O2 Delivery O2 Flow Rate FiO2 05/30/17 12:19 121 05/30/17 12:12 98.0 24 92/35 98 05/30/17 07:33 Nasal Cannula 2.0 Intake and Output 05/29/17 05/29/17 05/30/17 15:00 23:00 07:00 Intake Total 630 ml Balance 630 ml Results/Medications Result Diagram: 05/30/17 0805/30/17825 Results 24 hrs Laboratory Tests Test 05/29/17 17:14 05/29/17 21:44 05/30/17 05:28 05/30/17 05:29 Bedside Glucose 111 124 125 130 Test 05/30/17 08:12 05/30/17 08:26 05/30/17 12:41 Bedside Glucose 107 128 White Blood Count 11.3 H Red Blood Count 3.60 L Hemoglobin 10.7 L Hematocrit 32.3 L Mean Corpuscular Volume 89.7 Mean Corpuscular Hemoglobin 29.7 Mean Corpuscular Hemoglobin Concent 33.1 Red Cell Distribution Width 17.9 H Platelet Count 100 L Mean Platelet Volume 10.8 H Neutrophils % 79.3 H Lymphocytes % 9.9 L Monocytes % 8.9 Eosinophils % 1.1 Basophils % 0.3 Nucleated Red Blood Cells % 0.0 Neutrophils # 9.0 H Lymphocytes # 1.1 Monocytes # 1.0 H Eosinophils # 0.1 Basophils # 0.0 Nucleated Red Blood Cells # 0.0 Sodium Level 136 Potassium Level 4.9 Chloride Level 100 Carbon Dioxide Level 26 Anion Gap 15 Blood Urea Nitrogen 57 H Creatinine 4.31 H Glucose Level 106 Calcium Level 7.3 L Phosphorus Level 3.5 Magnesium Level 2.2 Albumin 2.2 L Medications Current Medications Ondansetron HCl (Zofran Inj) 4 mg Q6H PRN IV NAUSEA AND/OR VOMITING; Start at 21:30 Acetaminophen (Tylenol Tab) 650 mg Q6H PRN PO PAIN LEVEL 1-3 OR FEVER Last administered on 05/27/17 02:14; Admin Dose 650 MG; Start 05/15/17 at 21:30 Docusate Sodium (Colace) 100 mg Q12H PRN PO CONSTIPATION; Start 05/15/17 at 21 :30 Bisacodyl (Dulcolax) 5 mg DAILY PRN PO CONSTIPATION; Start 05/15/17 at 21:30 Atorvastatin Calcium (Lipitor) 20 mg HS PO Last administered on 05/29/17 21: 00; Admin Dose 20 MG; Start 05/16/17 at 21:00 Diagnostic Test (Pha) (Accu-Chek) 1 ea 02 XX Last administered on 05/24/17 01 :02; Admin Dose 1 EA; Start 05/16/17 at 02:00 Miscellaneous Information 1 ea NOTE XX ; Start 05/15/17 at 22:00 Glucose (Glutose) 15 gm Q15M PRN PO DECREASED GLUCOSE; Start 05/15/17 at 22:00 Glucose (Glutose) 22.5 gm Q15M PRN PO DECREASED GLUCOSE; Start 05/15/17 at 22: 00 Dextrose (D50w Syringe) 25 ml Q15M PRN IV DECREASED GLUCOSE; Start 05/15/17 at 22:00 Dextrose (D50w Syringe) 50 ml Q15M PRN IV DECREASED GLUCOSE; Start 05/15/17 at 22:00 Glucagon (Glucagen) 1 mg Q15M PRN IM DECREASED GLUCOSE; Start 05/15/17 at 22: 00 Glucose (Glutose) 15 gm Q15M PRN BUCCAL DECREASED GLUCOSE; Start 05/15/17 at 22:00 Collagenase 1 applic 1 applic DAILY TOP Last administered on 05/30/17 08:38; Admin Dose 1 APPLIC; Start 05/18/17 at 21:00 Vancomycin HCl (Vancocin) 250 ml @ 125 mls/hr Q96H IVPB Last administered on 05/28/17 17:00; Admin Dose 125 MLS/HR; Start 05/20/17 at 17:00 Insulin Aspart (Novolog Insulin Pen) (Adult SC Insulin - Mild Algorithm)... Q4 SC Last administered on 05/23/17 01:20; Admin Dose 1 UNIT; Start 05/21/17 at 13:00 Amiodarone HCl (Cordarone) 200 mg DAILY GTB Last administered on 05/30/17 08: 37; Admin Dose 200 MG; Start 05/29/17 at 09:00 Donepezil HCl (Aricept) 5 mg DAILY GTB Last administered on 05/30/17 08:36; Admin Dose 5 MG; Start 05/29/17 at 09:00 Famotidine (Pepcid) 20 mg DAILY GTB Last administered on 05/30/17 08:36; Admin Dose 20 MG; Start 05/29/17 at 09:00 Folic Acid (Folic Acid) 1 mg DAILY GTB Last administered on 05/30/17 08:37; Admin Dose 1 MG; Start 05/29/17 at 09:00 Loratadine (Claritin) 10 mg DAILY GTB Last administered on 05/30/17 08:36; Admin Dose 10 MG; Start 05/29/17 at 09:00 Megestrol Acetate (Megace) 40 mg DAILY GTB Last administered on 05/30/17 08:36 ; Admin Dose 40 MG; Start 05/29/17 at 09:00 Midodrine (Proamatine) 2.5 mg TID@06,12,18 GTB Last administered on 05/30/17 12:25; Admin Dose 2.5 MG; Start 05/29/17 at 12:00 Aspirin (Aspirin) 81 mg DAILY GTB Last administered on 05/30/17 08:36; Admin Dose 81 MG; Start 05/29/17 at 09:00 Assessment/Plan Chief Complaint/Hosp Course SUBJECTIVE: In HD, lethargic, afebrile INDWELLINGS: PEG, right IJ PermCath, PICC line placed on 05/22/2017. ANTIMICROBIALS: Vancomycin. PHYSICAL EXAMINATION: GENERAL: This is a fragile, chronically ill-appearing, elderly man who is in mild distress. HEENT: Head atraumatic, normocephalic. Sclerae anicteric. Buccal mucosa dry. NECK: Supple. Trachea midline. CHEST: Rise symmetrical. Breath sounds bilateral exp wheezes. HEART: S1, S2. ABDOMEN: Soft. Bowel tones present. EXTREMITIES: Without cyanosis. ASSESSMENT: 1. S/p septic shock 2. Acute encephalopathy. 3. Acute on chronic anemia 4. Fluid overload, poss ongoing aspiration 2 to secretion retention. 5. End-stage renal disease, hemodialysis dependent. 6. Status post enterococcal bacteremia. Repeat blood cultures negative. 7. Coronary artery disease with a history of permanent pacemaker placement. PLAN: The patient remains unchanged. 2D echo on admission revealed no vegetations. Repeat blood cultures have been negative. Completing Vanco, continue aspiration measures, HD per renal, cxr in am. DW staff Problems: JACK CHAN NP May 30, 2017 13:49
[2017-05-30] MEDS: ZINC SULFATE 220 MG CAP GTB SCH (18:00)
--- NOTE | 2017-05-30 18:20 | CONS ---
Date/Time of Note Date/Time of Note DATE: 05/30/17 TIME: 18:19 Assessment/Plan Assessment/Plan Chief Complaint/Hosp Course - ESRD ON HEMODIALYSIS - ANEMIA - PNEUMONIA - CAD / CHF - HYPOTENSION - DM - LOW ALBUMIN plan: Transfered out of ICU Bedside dialysis Transfused 2 units H/H stable Hemodynamic support Will need to talk to family regarding nursing home plan Possible SNF soon Problems: Consultation Date/Type/Reason Admit Date/Time May 15, 2017 at 20:02 Initial Consult Date 05/16/17 Type of Consultation: NEPHRLOGY Reason for Consultation ESRD on Dialysis Referring Provider: SUNIL GARCIA 24 HR Interval Summary Subjective hx not possible: pt non-verbal Exam/Review of Systems Vital Signs Vitals Vital Signs Date Time Temp Pulse Resp B/P Pulse Ox O2 Delivery O2 Flow Rate FiO2 05/30/17 16:23 86 05/30/17 15:51 98.6 24 101/50 100 05/30/17 07:33 Nasal Cannula 2.0 Intake and Output 05/29/17 05/29/17 05/30/17 15:00 23:00 07:00 Intake Total 630 ml Balance 630 ml Exam Constitutional: non-verbal Respiratory: crackles/rales Cardiovascular: edema, regular rate and rhythm, systolic murmur Gastrointestinal: soft Results Result Diagram: 05/30/17 0826 05/30/17 0826 Results 24 hrs Laboratory Tests Test 05/29/17 21:44 05/30/17 05:28 05/30/17 05:29 05/30/17 08:12 Bedside Glucose 124 125 130 107 Test 05/30/17 08:26 05/30/17 12:41 White Blood Count 11.3 H Red Blood Count 3.60 L Hemoglobin 10.7 L Hematocrit 32.3 L Mean Corpuscular Volume 89.7 Mean Corpuscular Hemoglobin 29.7 Mean Corpuscular Hemoglobin Concent 33.1 Red Cell Distribution Width 17.9 H Platelet Count 100 L Mean Platelet Volume 10.8 H Neutrophils % 79.3 H Lymphocytes % 9.9 L Monocytes % 8.9 Eosinophils % 1.1 Basophils % 0.3 Nucleated Red Blood Cells % 0.0 Neutrophils # 9.0 H Lymphocytes # 1.1 Monocytes # 1.0 H Eosinophils # 0.1 Basophils # 0.0 Nucleated Red Blood Cells # 0.0 Sodium Level 136 Potassium Level 4.9 Chloride Level 100 Carbon Dioxide Level 26 Anion Gap 15 Blood Urea Nitrogen 57 H Creatinine 4.31 H Glucose Level 106 Calcium Level 7.3 L Phosphorus Level 3.5 Magnesium Level 2.2 Albumin 2.2 L Bedside Glucose 128 Medications Medications Current Medications Ondansetron HCl (Zofran Inj) 4 mg Q6H PRN IV NAUSEA AND/OR VOMITING; Start at 21:30 Acetaminophen (Tylenol Tab) 650 mg Q6H PRN PO PAIN LEVEL 1-3 OR FEVER Last administered on 05/27/17 02:14; Admin Dose 650 MG; Start 05/15/17 at 21:30 Docusate Sodium (Colace) 100 mg Q12H PRN PO CONSTIPATION; Start 05/15/17 at 21 :30 Bisacodyl (Dulcolax) 5 mg DAILY PRN PO CONSTIPATION; Start 05/15/17 at 21:30 Atorvastatin Calcium (Lipitor) 20 mg HS PO Last administered on 05/29/17 21: 00; Admin Dose 20 MG; Start 05/16/17 at 21:00 Diagnostic Test (Pha) (Accu-Chek) 1 ea 02 XX Last administered on 05/24/17 01 :02; Admin Dose 1 EA; Start 05/16/17 at 02:00 Miscellaneous Information 1 ea NOTE XX ; Start 05/15/17 at 22:00 Glucose (Glutose) 15 gm Q15M PRN PO DECREASED GLUCOSE; Start 05/15/17 at 22:00 Glucose (Glutose) 22.5 gm Q15M PRN PO DECREASED GLUCOSE; Start 05/15/17 at 22: 00 Dextrose (D50w Syringe) 25 ml Q15M PRN IV DECREASED GLUCOSE; Start 05/15/17 at 22:00 Dextrose (D50w Syringe) 50 ml Q15M PRN IV DECREASED GLUCOSE; Start 05/15/17 at 22:00 Glucagon (Glucagen) 1 mg Q15M PRN IM DECREASED GLUCOSE; Start 05/15/17 at 22: 00 Glucose (Glutose) 15 gm Q15M PRN BUCCAL DECREASED GLUCOSE; Start 05/15/17 at 22:00 Collagenase 1 applic 1 applic DAILY TOP Last administered on 05/30/17 08:38; Admin Dose 1 APPLIC; Start 05/18/17 at 21:00 Vancomycin HCl (Vancocin) 250 ml @ 125 mls/hr Q96H IVPB Last administered on 05/28/17 17:00; Admin Dose 125 MLS/HR; Start 05/20/17 at 17:00 Insulin Aspart (Novolog Insulin Pen) (Adult SC Insulin - Mild Algorithm)... Q4 SC Last administered on 05/23/17 01:20; Admin Dose 1 UNIT; Start 05/21/17 at 13:00 Amiodarone HCl (Cordarone) 200 mg DAILY GTB Last administered on 05/30/17 08: 37; Admin Dose 200 MG; Start 05/29/17 at 09:00 Donepezil HCl (Aricept) 5 mg DAILY GTB Last administered on 05/30/17 08:36; Admin Dose 5 MG; Start 05/29/17 at 09:00 Famotidine (Pepcid) 20 mg DAILY GTB Last administered on 05/30/17 08:36; Admin Dose 20 MG; Start 05/29/17 at 09:00 Folic Acid (Folic Acid) 1 mg DAILY GTB Last administered on 05/30/17 08:37; Admin Dose 1 MG; Start 05/29/17 at 09:00 Loratadine (Claritin) 10 mg DAILY GTB Last administered on 05/30/17 08:36; Admin Dose 10 MG; Start 05/29/17 at 09:00 Megestrol Acetate (Megace) 40 mg DAILY GTB Last administered on 05/30/17 08:36 ; Admin Dose 40 MG; Start 05/29/17 at 09:00 Midodrine (Proamatine) 2.5 mg TID@06,12,18 GTB Last administered on 05/30/17 12:25; Admin Dose 2.5 MG; Start 05/29/17 at 12:00 Aspirin (Aspirin) 81 mg DAILY GTB Last administered on 05/30/17 08:36; Admin Dose 81 MG; Start 05/29/17 at 09:00 Zinc Sulfate (Zinc Sulfate) 220 mg DAILY GTB ; Start 05/30/17 at 18:00; Stop at 23:55 Multivit/Ca Carb/ B Cmplx/FA/Prenat (Ciera-Radha) 1 tab DAILY GTB ; Start at 09:00 DENVER ANTONY MD May 30, 2017 18:20
[2017-05-30] MEDS: ATORVASTATIN 20 MG TAB PO SCH (21:21)
[2017-05-31] VITALS (8 sets, daily range): BP systolic 97–123; BP diastolic 47–59; PULSE 76–116; RESP 20
[2017-05-31] MEDS: Insulin NOVOLOG SS MILD Algorithm (NPO/TPN/ENTERAL FEEDS) SC SCH ×4 (01:00→13:00)
[2017-05-31] MEDS: ACCU-CHEK XX SCH (01:02)
[2017-05-31] MEDS: MIDODRINE 2.5 MG TAB GTB SCH ×2 (06:28→13:16)
--- NOTE | 2017-05-31 08:01 | CONS ---
Date/Time of Note Date/Time of Note DATE: 05/31/17 TIME: 08:00 Consult Date/Type/Reason Admit Date/Time May 15, 2017 at 20:02 Initial Consult Date 05/16/17 Type of Consultation: CARDIOLOGY Ordering Provider: SUNIL GARCIA Subjective CARD F/U: S: D/W STAFF AND rhythm was reviewed. pt remains in paced rhythm remains nonverbal and does not answer my questions. no active bleeding is reported. pt has been hypotensive yesterday and was not able to be transferred to SNF. 0: General: thin man. no acute distress HEENT: NC/AT. pupils are equal. round. s/p NG tube. NECK: . no stridor. CV: RRR systolic murmur; no gallop or rubs. PULM: no wheezing. + mild rhonchi. GI: SOFT, NT, ND, no rebound or guarding S/P PEG Extremity: trace B/L LE edema. no clubbing. neuro: lethargic Psych: calm rectal: deferred chest: s/p R HD access in place. ECG NSR. ECHO reviewed recently: 1. Normal left ventricular systolic function. Normal left ventricular cavity size. Left ventricle not well visualized. Moderate concentric left ventricular hypertrophy. Ejection fraction is visually estimated at 60 %. Abnormal Diastolic Function. 2. Mitral valve is not well visualized. Mild mitral leaflet calcification. Mild mitral annular calcification. Trace mitral regurgitation. 3. Aortic valve not well visualized. Moderate aortic stenosis. Aortic valve Max velocity 2.90 m/sec. Max PG 34.00 mmHg. Mean PG 18.00 mmHg. Aortic cusps appear moderately calcified. 4. Normal appearance of the tricuspid valve. Tricuspid valve not well visualized. Estimated peak PA systolic pressure 29 mmHg. There is mild tricuspid regurgitation. 5. very suboptimal study. Objective Vital Signs Date Time Temp Pulse Resp B/P Pulse Ox O2 Delivery O2 Flow Rate FiO2 05/31/17 07:43 98.6 82 20 123/59 100 05/31/17 06:43 2.0 05/30/17 20:41 Nasal Cannula Intake and Output 05/30/17 05/30/17 05/31/17 15:00 23:00 07:00 Intake Total 500 ml 640 ml 400 ml Output Total 4000 ml 3500 ml Balance -3500 ml -2860 ml 400 ml Results/Medications Result Diagram: 05/30/1726 05/30/17825 Results 24 hrs Laboratory Tests Test 05/30/17 08:12 05/30/17 08:26 05/30/17 12:41 05/30/17 18:28 Bedside Glucose 107 128 120 White Blood Count 11.3 H Red Blood Count 3.60 L Hemoglobin 10.7 L Hematocrit 32.3 L Mean Corpuscular Volume 89.7 Mean Corpuscular Hemoglobin 29.7 Mean Corpuscular Hemoglobin Concent 33.1 Red Cell Distribution Width 17.9 H Platelet Count 100 L Mean Platelet Volume 10.8 H Neutrophils % 79.3 H Lymphocytes % 9.9 L Monocytes % 8.9 Eosinophils % 1.1 Basophils % 0.3 Nucleated Red Blood Cells % 0.0 Neutrophils # 9.0 H Lymphocytes # 1.1 Monocytes # 1.0 H Eosinophils # 0.1 Basophils # 0.0 Nucleated Red Blood Cells # 0.0 Sodium Level 136 Potassium Level 4.9 Chloride Level 100 Carbon Dioxide Level 26 Anion Gap 15 Blood Urea Nitrogen 57 H Creatinine 4.31 H Glucose Level 106 Calcium Level 7.3 L Phosphorus Level 3.5 Magnesium Level 2.2 Albumin 2.2 L Test 05/30/17 21:23 05/31/17 06:17 05/31/17 07:41 Bedside Glucose 124 90 106 Medications Current Medications Ondansetron HCl (Zofran Inj) 4 mg Q6H PRN IV NAUSEA AND/OR VOMITING; Start at 21:30 Acetaminophen (Tylenol Tab) 650 mg Q6H PRN PO PAIN LEVEL 1-3 OR FEVER Last administered on 05/27/17 02:14; Admin Dose 650 MG; Start 05/15/17 at 21:30 Docusate Sodium (Colace) 100 mg Q12H PRN PO CONSTIPATION; Start 05/15/17 at 21 :30 Bisacodyl (Dulcolax) 5 mg DAILY PRN PO CONSTIPATION; Start 05/15/17 at 21:30 Atorvastatin Calcium (Lipitor) 20 mg HS PO Last administered on 05/30/17 21:21 ; Admin Dose 20 MG; Start 05/16/17 at 21:00 Diagnostic Test (Pha) (Accu-Chek) 1 ea 02 XX Last administered on 05/24/17 01 :02; Admin Dose 1 EA; Start 05/16/17 at 02:00 Miscellaneous Information 1 ea NOTE XX ; Start 05/15/17 at 22:00 Glucose (Glutose) 15 gm Q15M PRN PO DECREASED GLUCOSE; Start 05/15/17 at 22:00 Glucose (Glutose) 22.5 gm Q15M PRN PO DECREASED GLUCOSE; Start 05/15/17 at 22: 00 Dextrose (D50w Syringe) 25 ml Q15M PRN IV DECREASED GLUCOSE; Start 05/15/17 at 22:00 Dextrose (D50w Syringe) 50 ml Q15M PRN IV DECREASED GLUCOSE; Start 05/15/17 at 22:00 Glucagon (Glucagen) 1 mg Q15M PRN IM DECREASED GLUCOSE; Start 05/15/17 at 22: 00 Glucose (Glutose) 15 gm Q15M PRN BUCCAL DECREASED GLUCOSE; Start 05/15/17 at 22:00 Collagenase 1 applic 1 applic DAILY TOP Last administered on 05/30/17 08:38; Admin Dose 1 APPLIC; Start 05/18/17 at 21:00 Vancomycin HCl (Vancocin) 250 ml @ 125 mls/hr Q96H IVPB Last administered on 05/28/17 17:00; Admin Dose 125 MLS/HR; Start 05/20/17 at 17:00 Insulin Aspart (Novolog Insulin Pen) (Adult SC Insulin - Mild Algorithm)... Q4 SC Last administered on 05/23/17 01:20; Admin Dose 1 UNIT; Start 05/21/17 at 13:00 Amiodarone HCl (Cordarone) 200 mg DAILY GTB Last administered on 05/30/17 08: 37; Admin Dose 200 MG; Start 05/29/17 at 09:00 Donepezil HCl (Aricept) 5 mg DAILY GTB Last administered on 05/30/17 08:36; Admin Dose 5 MG; Start 05/29/17 at 09:00 Famotidine (Pepcid) 20 mg DAILY GTB Last administered on 05/30/17 08:36; Admin Dose 20 MG; Start 05/29/17 at 09:00 Folic Acid (Folic Acid) 1 mg DAILY GTB Last administered on 05/30/17 08:37; Admin Dose 1 MG; Start 05/29/17 at 09:00 Loratadine (Claritin) 10 mg DAILY GTB Last administered on 05/30/17 08:36; Admin Dose 10 MG; Start 05/29/17 at 09:00 Megestrol Acetate (Megace) 40 mg DAILY GTB Last administered on 05/30/17 08:36 ; Admin Dose 40 MG; Start 05/29/17 at 09:00 Midodrine (Proamatine) 2.5 mg TID@06,12,18 GTB Last administered on 05/31/17 06:28; Admin Dose 2.5 MG; Start 05/29/17 at 12:00 Aspirin (Aspirin) 81 mg DAILY GTB Last administered on 05/30/17 08:36; Admin Dose 81 MG; Start 05/29/17 at 09:00 Zinc Sulfate (Zinc Sulfate) 220 mg DAILY GTB Last administered on 05/30/17 18: 00; Admin Dose 220 MG; Start 05/30/17 at 18:00; Stop 06/06/17 at 23:55 Multivit/Ca Carb/ B Cmplx/FA/Prenat (Ciera-Radha) 1 tab DAILY GTB ; Start at 09:00 Assessment/Plan Chief Complaint/Hosp Course 1. abnormal ECG and intermittent arrhythmia with P afib and NSVT 2. hypotension/ shcok/sepsis./ bacteremia. 3. ESRD ON HD 4. HX CAD, [place] 5. HX dementia 6. P afib 7. sick sinus syndrome 8. s/p PPM 9/ encephalopathy 10. hx CVA 11. severe and worsening anemia . 12. Dyslipidemia: on lipitor 13. severe anemia, . Recommendations: HD as per renal Pacemaker was interrogated 05.16.17 and personally reviewed. normal pacing function transfusion prn. will defer to IM team. pt has not been anticoagulated due to concerns about anemia, fall and bleeding. unable to tolerate betablocker so far due to hypotension. ASA cont lipitor replace lytes prn abx as per ID REC. prognosis is poor. Thank you for his referral. I will continue to follow along with you. MELVIN BRODERICK MD [facility] Problems: MELVIN BRODERICK MD May 31, 2017 08:01
--- NOTE | 2017-05-31 08:31 | RADRPT ---
PROCEDURE: XR Chest. CLINICAL INDICATION: Pneumonia. TECHNIQUE: Single portable view of the chest was obtained COMPARISON: CR CHEST 07/19/2016; CR CHEST 07/11/2016; CR CHEST 07/08/2016 FINDINGS: Right internal jugular dialysis catheter tip overlies the distal superior vena cava. A right upper e xtremity PICC line tip overlies the mid superior vena cava. A left-sided dual chamber AICD is presen t. Again demonstrated is cardiomegaly with thoracic aortic atherosclerotic changes. Low lung volumes . Unchanged persistent left base consolidation and/or atelectasis. Interval increased opacification of the right base. Mild pulmonary vascular congestion. Senescent osseous changes. IMPRESSION: 1. Persistent left base consolidation and/or atelectasis with possible underlying pleural effusion. 2. Interval increased opacification of the right base. 3. Increased pulmonary vascular congestion. 4. Cardiomegaly with thoracic aortic atherosclerosis. 5. Senescent osseous changes. RPTAT: HRSR Physician Pari Date Time Electronically viewed and signed by Rob Londono Physician on 05/31/2017 08:30 RR/
[2017-05-31] MEDS ORDERED: MULTIVIT/CA CARB/B CMPLX/FA TAB GTB SCH (09:00)
[2017-05-31] MEDS: BALSAM PERU/CASTOR OIL 60 GM TUBE TOP SCH (09:41)
[2017-05-31] MEDS: COLLAGENASE 30 GM TUBE TOP SCH (09:42)
[2017-05-31] MEDS: FOLIC ACID 1 MG TAB GTB SCH (09:43)
[2017-05-31] MEDS: ASPIRIN 81 MG TAB GTB SCH (09:43)
[2017-05-31] MEDS: ZINC SULFATE 220 MG CAP GTB SCH (09:44)
[2017-05-31] MEDS: AMIODARONE 200 MG TAB GTB SCH (09:44)
[2017-05-31] MEDS: MEGESTROL 40 MG TAB GTB SCH (09:44)
[2017-05-31] MEDS: FAMOTIDINE 20 MG TAB GTB SCH (09:44)
[2017-05-31] MEDS: DONEPEZIL 5 MG TAB GTB SCH (09:44)
[2017-05-31] MEDS: LORATADINE 10 MG TAB GTB SCH (09:47)
--- NOTE | 2017-05-31 10:19 | PN ---
Date/Time of Note Date/Time of Note DATE: 05/31/17 TIME: 10:14 Assessment/Plan VTE Prophylaxis VTE Prophylaxis Intervention: contraindicated Lines/Catheters IV Catheter Type (from Nrsg): PICC Line Central line still needed: Yes Assessment/Plan Assessment/Plan 1. Septic shock secondary to bacteremia, resolving - Patient had +blood cultures for enterococcus and ID on board. Recommendations appreciated. Currently on Vancomycin and will continue until 06/03 - Repeat blood cultures are negative. - ECHO- no vegetations seen 2. Hypotension- stable - labile, depends on HD - On midodrine, patient's son understands this may be harmful in the long run, but wishes to risk the medication to keep patient's BP elevated. 3. Encephalopathy -Likely baseline, no change -this level of dementia/encephalopathy was seen previously a few weeks ago -repeat CT not showing any acute issues 4. Hyponatremia, resolved - Will continue to monitor - Urine studies not possible 2/2 no urine production -tube feeds with water flush, Iv fluids, monitor 5. Anemia, chronic, CKD related, s/p transfusion - likely 2/2 chronic disease and repeated daily blood draws - Continue to monitor and transfuse if <7 6. ESRD, DD, on HD, electrolyte abnormalities - Nephrology on board and consultation appreciated - Discussed with son the effects HD has been on his father but still wants to continue. 7. fail to thrive, moderate malnutrition with hypoalbuminemia - PEG in place and on TF at 10 with little residual. increase as tolerated 8. paroxysmal atrial fibrillation, sinus rhythm, not a candidate for anticoagulant - Cardiology on board and consultation appreciated. HR controlled 9. history of cerebrovascular accident 10. aortic stenosis 11. sick sinus syndrome status post permanent pacemaker - pacer interrogated and shows normal pacing function 12. dyslipidemia, on statin 13. dementia, chronic, stable 14. Disposition - Patient medically stable for discharge to SNF with antibiotics until 06/03 Subjective 24 Hr Interval Summary Free Text/Dictation Patient resting comfortably in NAD. Respiratory stable and tolerating tube feeds with little residual. No acute overnight events. Exam/Review of Systems Vital Signs Vitals Vital Signs Date Time Temp Pulse Resp B/P Pulse Ox O2 Delivery O2 Flow Rate FiO2 05/31/17 08:12 77 05/31/17 07:43 98.6 20 123/59 100 05/31/17 06:43 2.0 05/30/17 20:41 Nasal Cannula Intake and Output 05/30/17 05/30/17 05/31/17 15:00 23:00 07:00 Intake Total 500 ml 640 ml 400 ml Output Total 4000 ml 3500 ml Balance -3500 ml -2860 ml 400 ml Exam General: frail appearing, awake, no acute distress HEENT: Atraumatic, normocephalic. Neck: Supple with full range of motion. Lungs: Crackles bases bilaterally, no wheezing appreciated Heart: Normal S1-S2, regular rate, irregularly irregular rhythm Abdomen: Soft , nontender, nondistended , bowel sounds are present. No guarding no rebound tenderness. PEG in place Extremities: +pedal edema b/l. Normal to inspection, no cyanosis Neuro: follows minimal command, moves all extremities spontaneously Skin: Sacral skin wound, multiple other pressure wounds Results Result Diagram: 05/30/17 0826 05/30/17 0826 Results 24 hrs Laboratory Tests Test 05/30/17 12:41 05/30/17 18:28 05/30/17 21:23 05/31/17 06:17 Bedside Glucose 128 120 124 90 Test 05/31/17 07:41 Bedside Glucose 106 Medications Medications Current Medications Ondansetron HCl (Zofran Inj) 4 mg Q6H PRN IV NAUSEA AND/OR VOMITING; Start at 21:30 Acetaminophen (Tylenol Tab) 650 mg Q6H PRN PO PAIN LEVEL 1-3 OR FEVER Last administered on 05/27/17 02:14; Admin Dose 650 MG; Start 05/15/17 at 21:30 Docusate Sodium (Colace) 100 mg Q12H PRN PO CONSTIPATION; Start 05/15/17 at 21 :30 Bisacodyl (Dulcolax) 5 mg DAILY PRN PO CONSTIPATION; Start 05/15/17 at 21:30 Atorvastatin Calcium (Lipitor) 20 mg HS PO Last administered on 05/30/17 21:21 ; Admin Dose 20 MG; Start 05/16/17 at 21:00 Diagnostic Test (Pha) (Accu-Chek) 1 ea 02 XX Last administered on 05/24/17 01 :02; Admin Dose 1 EA; Start 05/16/17 at 02:00 Miscellaneous Information 1 ea NOTE XX ; Start 05/15/17 at 22:00 Glucose (Glutose) 15 gm Q15M PRN PO DECREASED GLUCOSE; Start 05/15/17 at 22:00 Glucose (Glutose) 22.5 gm Q15M PRN PO DECREASED GLUCOSE; Start 05/15/17 at 22: 00 Dextrose (D50w Syringe) 25 ml Q15M PRN IV DECREASED GLUCOSE; Start 05/15/17 at 22:00 Dextrose (D50w Syringe) 50 ml Q15M PRN IV DECREASED GLUCOSE; Start 05/15/17 at 22:00 Glucagon (Glucagen) 1 mg Q15M PRN IM DECREASED GLUCOSE; Start 05/15/17 at 22: 00 Glucose (Glutose) 15 gm Q15M PRN BUCCAL DECREASED GLUCOSE; Start 05/15/17 at 22:00 Collagenase 1 applic 1 applic DAILY TOP Last administered on 05/31/17 09:42; Admin Dose 1 APPLIC; Start 05/18/17 at 21:00 Vancomycin HCl (Vancocin) 250 ml @ 125 mls/hr Q96H IVPB Last administered on 05/28/17 17:00; Admin Dose 125 MLS/HR; Start 05/20/17 at 17:00 Insulin Aspart (Novolog Insulin Pen) (Adult SC Insulin - Mild Algorithm)... Q4 SC Last administered on 05/23/17 01:20; Admin Dose 1 UNIT; Start 05/21/17 at 13:00 Amiodarone HCl (Cordarone) 200 mg DAILY GTB Last administered on 05/31/17 09: 44; Admin Dose 200 MG; Start 05/29/17 at 09:00 Donepezil HCl (Aricept) 5 mg DAILY GTB Last administered on 05/31/17 09:44; Admin Dose 5 MG; Start 05/29/17 at 09:00 Famotidine (Pepcid) 20 mg DAILY GTB Last administered on 05/31/17 09:44; Admin Dose 20 MG; Start 05/29/17 at 09:00 Folic Acid (Folic Acid) 1 mg DAILY GTB Last administered on 05/31/17 09:43; Admin Dose 1 MG; Start 05/29/17 at 09:00 Loratadine (Claritin) 10 mg DAILY GTB Last administered on 05/31/17 09:47; Admin Dose 10 MG; Start 05/29/17 at 09:00 Megestrol Acetate (Megace) 40 mg DAILY GTB Last administered on 05/31/17 09:44 ; Admin Dose 40 MG; Start 05/29/17 at 09:00 Midodrine (Proamatine) 2.5 mg TID@06,12,18 GTB Last administered on 05/31/17 06:28; Admin Dose 2.5 MG; Start 05/29/17 at 12:00 Aspirin (Aspirin) 81 mg DAILY GTB Last administered on 05/31/17 09:43; Admin Dose 81 MG; Start 05/29/17 at 09:00 Zinc Sulfate (Zinc Sulfate) 220 mg DAILY GTB Last administered on 05/31/17 09: 44; Admin Dose 220 MG; Start 05/30/17 at 18:00; Stop 06/06/17 at 23:55 Multivit/Ca Carb/ B Cmplx/FA/Prenat (Ciera-Radha) 1 tab DAILY GTB Last administered on 05/31/17 09:44; Admin Dose 1 TAB; Start 05/31/17 at 09:00 VIV FORD MD May 31, 2017 10:18
--- NOTE | 2017-05-31 12:12 | CONS ---
Date/Time of Note Date/Time of Note DATE: 05/31/17 TIME: 12:12 Consultation Date/Type/Reason Admit Date/Time May 15, 2017 at 20:02 Date of Consultation: May 31, 2017 Type of Consultation: pulmonary Hx of Present Illness dictated [id number] Constitutional: no complaints Eyes: no complaints ENT: no complaints Psychological: no complaints Past Medical History Medical History: congestive heart failure, coronary artery disease, diabetes, GI bleed Past Surgical History Past Surgical Hx: other Social History Alcohol Use: none Smoking Status: Unknown if ever smoked Drug Use: none Exam/Review of Systems Vital Signs Vitals Vital Signs Date Time Temp Pulse Resp B/P Pulse Ox O2 Delivery O2 Flow Rate FiO2 05/31/17 11:43 97.8 91 20 108/55 100 05/31/17 06:43 2.0 05/30/17 20:41 Nasal Cannula Intake and Output 05/30/17 05/30/17 05/31/17 15:00 23:00 07:00 Intake Total 500 ml 640 ml 400 ml Output Total 4000 ml 3500 ml Balance -3500 ml -2860 ml 400 ml Results Result Diagram: 05/31/17 1021 05/31/17 1022 Results 24 hrs Laboratory Tests Test 05/30/17 12:41 05/30/17 18:28 05/30/17 21:23 05/31/17 06:17 Bedside Glucose 128 120 124 90 Test 05/31/17 07:41 05/31/17 10:21 05/31/17 10:22 Bedside Glucose 106 White Blood Count 9.3 Red Blood Count 3.03 L Hemoglobin 9.0 L Hematocrit 27.6 L Mean Corpuscular Volume 91.1 Mean Corpuscular Hemoglobin 29.7 Mean Corpuscular Hemoglobin Concent 32.6 Red Cell Distribution Width 17.7 H Platelet Count 87 L Mean Platelet Volume 11.0 H Neutrophils % 73.0 Lymphocytes % 8.9 L Monocytes % 11.1 H Eosinophils % 6.3 Basophils % 0.3 Nucleated Red Blood Cells % 0.0 Neutrophils # 6.8 Lymphocytes # 0.8 Monocytes # 1.0 H Eosinophils # 0.6 H Basophils # 0.0 Nucleated Red Blood Cells # 0.0 Sodium Level 137 Potassium Level 4.3 Chloride Level 101 Carbon Dioxide Level 29 Anion Gap 11 Blood Urea Nitrogen 52 H Creatinine 4.05 H Glucose Level 98 Calcium Level 7.5 L Phosphorus Level 3.2 Magnesium Level 2.2 Albumin 1.9 L Medications Medications Current Medications Ondansetron HCl (Zofran Inj) 4 mg Q6H PRN IV NAUSEA AND/OR VOMITING; Start at 21:30 Acetaminophen (Tylenol Tab) 650 mg Q6H PRN PO PAIN LEVEL 1-3 OR FEVER Last administered on 05/27/17 02:14; Admin Dose 650 MG; Start 05/15/17 at 21:30 Docusate Sodium (Colace) 100 mg Q12H PRN PO CONSTIPATION; Start 05/15/17 at 21 :30 Bisacodyl (Dulcolax) 5 mg DAILY PRN PO CONSTIPATION; Start 05/15/17 at 21:30 Atorvastatin Calcium (Lipitor) 20 mg HS PO Last administered on 05/30/17 21:21 ; Admin Dose 20 MG; Start 05/16/17 at 21:00 Diagnostic Test (Pha) (Accu-Chek) 1 ea 02 XX Last administered on 05/24/17 01 :02; Admin Dose 1 EA; Start 05/16/17 at 02:00 Miscellaneous Information 1 ea NOTE XX ; Start 05/15/17 at 22:00 Glucose (Glutose) 15 gm Q15M PRN PO DECREASED GLUCOSE; Start 05/15/17 at 22:00 Glucose (Glutose) 22.5 gm Q15M PRN PO DECREASED GLUCOSE; Start 05/15/17 at 22: 00 Dextrose (D50w Syringe) 25 ml Q15M PRN IV DECREASED GLUCOSE; Start 05/15/17 at 22:00 Dextrose (D50w Syringe) 50 ml Q15M PRN IV DECREASED GLUCOSE; Start 05/15/17 at 22:00 Glucagon (Glucagen) 1 mg Q15M PRN IM DECREASED GLUCOSE; Start 05/15/17 at 22: 00 Glucose (Glutose) 15 gm Q15M PRN BUCCAL DECREASED GLUCOSE; Start 05/15/17 at 22:00 Collagenase 1 applic 1 applic DAILY TOP Last administered on 05/31/17 09:42; Admin Dose 1 APPLIC; Start 05/18/17 at 21:00 Vancomycin HCl (Vancocin) 250 ml @ 125 mls/hr Q96H IVPB Last administered on 05/28/17 17:00; Admin Dose 125 MLS/HR; Start 05/20/17 at 17:00 Insulin Aspart (Novolog Insulin Pen) (Adult SC Insulin - Mild Algorithm)... Q4 SC Last administered on 05/23/17 01:20; Admin Dose 1 UNIT; Start 05/21/17 at 13:00 Amiodarone HCl (Cordarone) 200 mg DAILY GTB Last administered on 05/31/17 09: 44; Admin Dose 200 MG; Start 05/29/17 at 09:00 Donepezil HCl (Aricept) 5 mg DAILY GTB Last administered on 05/31/17 09:44; Admin Dose 5 MG; Start 05/29/17 at 09:00 Famotidine (Pepcid) 20 mg DAILY GTB Last administered on 05/31/17 09:44; Admin Dose 20 MG; Start 05/29/17 at 09:00 Folic Acid (Folic Acid) 1 mg DAILY GTB Last administered on 05/31/17 09:43; Admin Dose 1 MG; Start 05/29/17 at 09:00 Loratadine (Claritin) 10 mg DAILY GTB Last administered on 05/31/17 09:47; Admin Dose 10 MG; Start 05/29/17 at 09:00 Megestrol Acetate (Megace) 40 mg DAILY GTB Last administered on 05/31/17 09:44 ; Admin Dose 40 MG; Start 05/29/17 at 09:00 Midodrine (Proamatine) 2.5 mg TID@06,12,18 GTB Last administered on 05/31/17 06:28; Admin Dose 2.5 MG; Start 05/29/17 at 12:00 Aspirin (Aspirin) 81 mg DAILY GTB Last administered on 05/31/17 09:43; Admin Dose 81 MG; Start 05/29/17 at 09:00 Zinc Sulfate (Zinc Sulfate) 220 mg DAILY GTB Last administered on 05/31/17 09: 44; Admin Dose 220 MG; Start 05/30/17 at 18:00; Stop 06/06/17 at 23:55 Multivit/Ca Carb/ B Cmplx/FA/Prenat (Ciera-Radha) 1 tab DAILY GTB Last administered on 05/31/17 09:44; Admin Dose 1 TAB; Start 05/31/17 at 09:00 JOSE MIGUEL NICHOLS May 31, 2017 12:12
--- NOTE | 2017-05-31 12:39 | CONS ---
DATE OF ADMISSION: 05/15/2017 DATE OF CONSULTATION: 05/31/2017 PULMONARY CONSULTATION TIME: 12:00 p.m. REASON FOR REFERRAL: Evaluation of pneumonia and congestive heart failure. HISTORY OF PRESENT ILLNESS: Mr. Hooper is an 89-year-old male who was admitted on [facility] with complaints of not feeling well. Upon evaluation, the patient was diagnosed with sepsis du e to pneumonia. Patient has been started on antibiotics. The patient's chest x-ray, however, is st ill showing persistent bilateral infiltrates and a pulmonary consultation was requested for further evaluation. The patient has a history of advanced dementia and was unable to give any history by [facility] whatsoever. History was obtained from medical records. PAST MEDICAL HISTORY: 1. History of anemia. 2. Chronic renal disease. 3. Patient on hemodialysis. 4. Advanced dementia. 5. History of paroxysmal atrial fibrillation. 6. Cerebrovascular accident. 7. Aortic stenosis. 8. Sick sinus syndrome, status post pacemaker placement. 9. Interval resolution of hypotension. CURRENT MEDICATIONS 1. Vancomycin 1 gram IV every hours. 2. Amiodarone 200 mg daily via G-tube. 3. Atorvastatin 20 mg a day. 4. Aricept 5 mg daily. 5. Pepcid 20 mg daily. 6. Folic acid 1 mg a day. 7. Atrovent q.6h. 8. Xopenex q.8h. 9. Claritin 10 mg daily. 10. Zosyn also by the infectious disease team. ALLERGIES: NONE. SOCIAL HISTORY: Not available. OCCUPATIONAL HISTORY: Not available. FAMILY HISTORY: Not available. REVIEW OF SYSTEMS: Unable to be obtained. PHYSICAL EXAMINATION: GENERAL: Elderly male, unresponsive currently in no distress. VITAL SIGNS: Temperature is 97.8 degrees Fahrenheit, respiratory rate is 18 per minute, blood press ure is 108/55, heart rate 82 per minute, sinus rhythm, O2 saturation 100%. HEENT: Supple neck. The patient is edentulous. No neck masses, positive JVD, no lymphadenopathy, midline trachea. CHEST: Diminished breath sounds throughout. HEART: S1, S2 audible. No murmurs, regular rhythm. ABDOMEN: Soft. G-tube in place. No organomegaly. Bowel sounds audible. EXTREMITIES: No edema. NEUROLOGIC: [employer]ING [employer] exam, patient remains essentially unresponsive. IMAGING: Chest x-ray was reviewed from today which is showing bilateral pulmonary vascular congesti on with superimposed bilateral pneumonia. Yesterday white count is 9.3, hemoglobin 9.0, platelet co unt of 87,000. Sodium 137, potassium 4.3, chloride 101, bicarbonate 29, BUN of 52, creatinine 4.0. ASSESSMENT: 1. Patient admitted for [facility] CHF and severe bilateral pneumonia. 2. Advanced dementia. 3. Renal failure on hemodialysis with possibly some element of fluid overload. 4. History of cardiac arrhythmia. 5. Anemia. RECOMMENDATIONS: Continue current supportive care. Prognosis is poor onward due to multiple comorb idities. Dictated By: JOSE MIGUEL HAMILTON/DARON Conf#: [id number] DID#: [id number]
--- NOTE | 2017-05-31 12:39 | CONS ---
DATE OF ADMISSION: 05/15/2017 DATE OF CONSULTATION: 05/31/2017 PULMONARY CONSULTATION TIME: 12:00 p.m. REASON FOR REFERRAL: Evaluation of pneumonia and congestive heart failure. HISTORY OF PRESENT ILLNESS: Mr. Hooper is an 89-year-old male who was admitted on [facility] with complaints of not feeling well. Upon evaluation, the patient was diagnosed with sepsis du e to pneumonia. Patient has been started on antibiotics. The patient's chest x-ray, however, is st ill showing persistent bilateral infiltrates and a pulmonary consultation was requested for further evaluation. The patient has a history of advanced dementia and was unable to give any history by [facility] whatsoever. History was obtained from medical records. PAST MEDICAL HISTORY: 1. History of anemia. 2. Chronic renal disease. 3. Patient on hemodialysis. 4. Advanced dementia. 5. History of paroxysmal atrial fibrillation. 6. Cerebrovascular accident. 7. Aortic stenosis. 8. Sick sinus syndrome, status post pacemaker placement. 9. Interval resolution of hypotension. CURRENT MEDICATIONS 1. Vancomycin 1 gram IV every hours. 2. Amiodarone 200 mg daily via G-tube. 3. Atorvastatin 20 mg a day. 4. Aricept 5 mg daily. 5. Pepcid 20 mg daily. 6. Folic acid 1 mg a day. 7. Atrovent q.6h. 8. Xopenex q.8h. 9. Claritin 10 mg daily. 10. Zosyn also by the infectious disease team. ALLERGIES: NONE. SOCIAL HISTORY: Not available. OCCUPATIONAL HISTORY: Not available. FAMILY HISTORY: Not available. REVIEW OF SYSTEMS: Unable to be obtained. PHYSICAL EXAMINATION: GENERAL: Elderly male, unresponsive currently in no distress. VITAL SIGNS: Temperature is 97.8 degrees Fahrenheit, respiratory rate is 18 per minute, blood press ure is 108/55, heart rate 82 per minute, sinus rhythm, O2 saturation 100%. HEENT: Supple neck. The patient is edentulous. No neck masses, positive JVD, no lymphadenopathy, midline trachea. CHEST: Diminished breath sounds throughout. HEART: S1, S2 audible. No murmurs, regular rhythm. ABDOMEN: Soft. G-tube in place. No organomegaly. Bowel sounds audible. EXTREMITIES: No edema. NEUROLOGIC: PROFESSOR OF SURGERY exam, patient remains essentially unresponsive. IMAGING: Chest x-ray was reviewed from today which is showing bilateral pulmonary vascular congesti on with superimposed bilateral pneumonia. Yesterday white count is 9.3, hemoglobin 9.0, platelet co unt of 87,000. Sodium 137, potassium 4.3, chloride 101, bicarbonate 29, BUN of 52, creatinine 4.0. ASSESSMENT: 1. Patient admitted for culmination CHF and severe bilateral pneumonia. 2. Advanced dementia. 3. Renal failure on hemodialysis with possibly some element of fluid overload. 4. History of cardiac arrhythmia. 5. Anemia. RECOMMENDATIONS: Continue current supportive care. Prognosis is poor onward due to multiple comorb idities. Dictated By: JOSE MIGUEL HAMILTON/DARON Conf#: [id number] DID#: [id number]
--- NOTE | 2017-05-31 12:39 | CONS ---
DATE OF ADMISSION: 05/15/2017 DATE OF CONSULTATION: 05/31/2017 PULMONARY CONSULTATION TIME: 12:00 p.m. REASON FOR REFERRAL: Evaluation of pneumonia and congestive heart failure. HISTORY OF PRESENT ILLNESS: Mr. Hooper is an 89-year-old male who was admitted on [facility] with complaints of not feeling well. Upon evaluation, the patient was diagnosed with sepsis du e to pneumonia. Patient has been started on antibiotics. The patient's chest x-ray, however, is st ill showing persistent bilateral infiltrates and a pulmonary consultation was requested for further evaluation. The patient has a history of advanced dementia and was unable to give any history by [facility] whatsoever. History was obtained from medical records. PAST MEDICAL HISTORY: 1. History of anemia. 2. Chronic renal disease. 3. Patient on hemodialysis. 4. Advanced dementia. 5. History of paroxysmal atrial fibrillation. 6. Cerebrovascular accident. 7. Aortic stenosis. 8. Sick sinus syndrome, status post pacemaker placement. 9. Interval resolution of hypotension. CURRENT MEDICATIONS 1. Vancomycin 1 gram IV every hours. 2. Amiodarone 200 mg daily via G-tube. 3. Atorvastatin 20 mg a day. 4. Aricept 5 mg daily. 5. Pepcid 20 mg daily. 6. Folic acid 1 mg a day. 7. Atrovent q.6h. 8. Xopenex q.8h. 9. Claritin 10 mg daily. 10. Zosyn also by the infectious disease team. ALLERGIES: NONE. SOCIAL HISTORY: Not available. OCCUPATIONAL HISTORY: Not available. FAMILY HISTORY: Not available. REVIEW OF SYSTEMS: Unable to be obtained. PHYSICAL EXAMINATION: GENERAL: Elderly male, unresponsive currently in no distress. VITAL SIGNS: Temperature is 97.8 degrees Fahrenheit, respiratory rate is 18 per minute, blood press ure is 108/55, heart rate 82 per minute, sinus rhythm, O2 saturation 100%. HEENT: Supple neck. The patient is edentulous. No neck masses, positive JVD, no lymphadenopathy, midline trachea. CHEST: Diminished breath sounds throughout. HEART: S1, S2 audible. No murmurs, regular rhythm. ABDOMEN: Soft. G-tube in place. No organomegaly. Bowel sounds audible. EXTREMITIES: No edema. 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 IMAGING: Chest x-ray was reviewed from today which is showing bilateral pulmonary vascular congesti on with superimposed bilateral pneumonia. Yesterday white count is 9.3, hemoglobin 9.0, platelet co unt of 87,000. Sodium 137, potassium 4.3, chloride 101, bicarbonate 29, BUN of 52, creatinine 4.0. ASSESSMENT: 1. Patient admitted for culmination CHF and severe bilateral pneumonia. 2. Advanced dementia. 3. Renal failure on hemodialysis with possibly some element of fluid overload. 4. History of cardiac arrhythmia. 5. Anemia. RECOMMENDATIONS: Continue current supportive care. Prognosis is poor onward due to multiple comorb idities. Dictated By: JOSE MIGUEL HAMILTON/DARON Conf#: [id number] DID#: [id number]
--- NOTE | 2017-05-31 14:21 | CONS ---
Date/Time of Note Date/Time of Note DATE: 05/31/17 TIME: 14:20 Consult Date/Type/Reason Admit Date/Time May 15, 2017 at 20:02 Initial Consult Date 05/16/17 Type of Consultation: ID Ordering Provider: SUNIL GARCIA Objective Vital Signs Date Time Temp Pulse Resp B/P Pulse Ox O2 Delivery O2 Flow Rate FiO2 05/31/17 12:14 116 05/31/17 11:43 97.8 20 108/55 100 05/31/17 08:30 Nasal Cannula 2.0 Intake and Output 05/30/17 05/30/17 05/31/17 15:00 23:00 07:00 Intake Total 500 ml 640 ml 400 ml Output Total 4000 ml 3500 ml Balance -3500 ml -2860 ml 400 ml Results/Medications Result Diagram: 05/31/17 1021 05/31/17 1022 Results 24 hrs Laboratory Tests Test 05/30/17 18:28 05/30/17 21:23 05/31/17 06:17 05/31/17 07:41 Bedside Glucose 120 124 90 106 Test 05/31/17 10:21 05/31/17 10:22 05/31/17 12:16 White Blood Count 9.3 Red Blood Count 3.03 L Hemoglobin 9.0 L Hematocrit 27.6 L Mean Corpuscular Volume 91.1 Mean Corpuscular Hemoglobin 29.7 Mean Corpuscular Hemoglobin Concent 32.6 Red Cell Distribution Width 17.7 H Platelet Count 87 L Mean Platelet Volume 11.0 H Neutrophils % 73.0 Lymphocytes % 8.9 L Monocytes % 11.1 H Eosinophils % 6.3 Basophils % 0.3 Nucleated Red Blood Cells % 0.0 Neutrophils # 6.8 Lymphocytes # 0.8 Monocytes # 1.0 H Eosinophils # 0.6 H Basophils # 0.0 Nucleated Red Blood Cells # 0.0 Sodium Level 137 Potassium Level 4.3 Chloride Level 101 Carbon Dioxide Level 29 Anion Gap 11 Blood Urea Nitrogen 52 H Creatinine 4.05 H Glucose Level 98 Calcium Level 7.5 L Phosphorus Level 3.2 Magnesium Level 2.2 Albumin 1.9 L Bedside Glucose 103 Medications Current Medications Ondansetron HCl (Zofran Inj) 4 mg Q6H PRN IV NAUSEA AND/OR VOMITING; Start at 21:30 Acetaminophen (Tylenol Tab) 650 mg Q6H PRN PO PAIN LEVEL 1-3 OR FEVER Last administered on 05/27/17 02:14; Admin Dose 650 MG; Start 05/15/17 at 21:30 Docusate Sodium (Colace) 100 mg Q12H PRN PO CONSTIPATION; Start 05/15/17 at 21 :30 Bisacodyl (Dulcolax) 5 mg DAILY PRN PO CONSTIPATION; Start 05/15/17 at 21:30 Atorvastatin Calcium (Lipitor) 20 mg HS PO Last administered on 05/30/17 21:21 ; Admin Dose 20 MG; Start 05/16/17 at 21:00 Diagnostic Test (Pha) (Accu-Chek) 1 ea 02 XX Last administered on 05/24/17 01 :02; Admin Dose 1 EA; Start 05/16/17 at 02:00 Miscellaneous Information 1 ea NOTE XX ; Start 05/15/17 at 22:00 Glucose (Glutose) 15 gm Q15M PRN PO DECREASED GLUCOSE; Start 05/15/17 at 22:00 Glucose (Glutose) 22.5 gm Q15M PRN PO DECREASED GLUCOSE; Start 05/15/17 at 22: 00 Dextrose (D50w Syringe) 25 ml Q15M PRN IV DECREASED GLUCOSE; Start 05/15/17 at 22:00 Dextrose (D50w Syringe) 50 ml Q15M PRN IV DECREASED GLUCOSE; Start 05/15/17 at 22:00 Glucagon (Glucagen) 1 mg Q15M PRN IM DECREASED GLUCOSE; Start 05/15/17 at 22: 00 Glucose (Glutose) 15 gm Q15M PRN BUCCAL DECREASED GLUCOSE; Start 05/15/17 at 22:00 Collagenase 1 applic 1 applic DAILY TOP Last administered on 05/31/17 09:42; Admin Dose 1 APPLIC; Start 05/18/17 at 21:00 Vancomycin HCl (Vancocin) 250 ml @ 125 mls/hr Q96H IVPB Last administered on 05/28/17 17:00; Admin Dose 125 MLS/HR; Start 05/20/17 at 17:00 Insulin Aspart (Novolog Insulin Pen) (Adult SC Insulin - Mild Algorithm)... Q4 SC Last administered on 05/23/17 01:20; Admin Dose 1 UNIT; Start 05/21/17 at 13:00 Amiodarone HCl (Cordarone) 200 mg DAILY GTB Last administered on 05/31/17 09: 44; Admin Dose 200 MG; Start 05/29/17 at 09:00 Donepezil HCl (Aricept) 5 mg DAILY GTB Last administered on 05/31/17 09:44; Admin Dose 5 MG; Start 05/29/17 at 09:00 Famotidine (Pepcid) 20 mg DAILY GTB Last administered on 05/31/17 09:44; Admin Dose 20 MG; Start 05/29/17 at 09:00 Folic Acid (Folic Acid) 1 mg DAILY GTB Last administered on 05/31/17 09:43; Admin Dose 1 MG; Start 05/29/17 at 09:00 Loratadine (Claritin) 10 mg DAILY GTB Last administered on 05/31/17 09:47; Admin Dose 10 MG; Start 05/29/17 at 09:00 Megestrol Acetate (Megace) 40 mg DAILY GTB Last administered on 05/31/17 09:44 ; Admin Dose 40 MG; Start 05/29/17 at 09:00 Midodrine (Proamatine) 2.5 mg TID@06,12,18 GTB Last administered on 05/31/17 13:16; Admin Dose 2.5 MG; Start 05/29/17 at 12:00 Aspirin (Aspirin) 81 mg DAILY GTB Last administered on 05/31/17 09:43; Admin Dose 81 MG; Start 05/29/17 at 09:00 Zinc Sulfate (Zinc Sulfate) 220 mg DAILY GTB Last administered on 05/31/17 09: 44; Admin Dose 220 MG; Start 05/30/17 at 18:00; Stop 06/06/17 at 23:55 Multivit/Ca Carb/ B Cmplx/FA/Prenat (Ciera-Radha) 1 tab DAILY GTB Last administered on 05/31/17 09:44; Admin Dose 1 TAB; Start 05/31/17 at 09:00 Assessment/Plan Chief Complaint/Hosp Course SUBJECTIVE: Congested, lethargic, afebrile INDWELLINGS: PEG, right IJ PermCath, PICC line placed on 05/22/2017. ANTIMICROBIALS: Vancomycin. PHYSICAL EXAMINATION: GENERAL: This is a fragile, chronically ill-appearing, elderly man who is in mild distress. HEENT: Head atraumatic, normocephalic. Sclerae anicteric. Buccal mucosa dry. NECK: Supple. Trachea midline. CHEST: Rise symmetrical. Breath sounds bilateral exp wheezes. HEART: S1, S2. ABDOMEN: Soft. Bowel tones present. EXTREMITIES: Without cyanosis. ASSESSMENT: 1. S/p septic shock 2. Acute encephalopathy. 3. Acute on chronic anemia 4. Fluid overload, poss ongoing aspiration 2 to secretion retention. 5. End-stage renal disease, hemodialysis dependent. 6. Status post enterococcal bacteremia. Repeat blood cultures negative. 7. Coronary artery disease with a history of permanent pacemaker placement. PLAN: The patient remains unchanged. Dc Fredy, start Zosyn, continue aspiration precautions, pulmonary toilet, HD per renal DW Dr Marvin Problems: JACK CHAN NP May 31, 2017 14:21
--- NOTE | 2017-05-31 19:31 | DS ---
Date/Time of Note Date/Time of Note DATE: 05/31/17 TIME: 19:30 Discharge Summary Admission/Discharge Info Admit Date/Time May 15, 2017 at 20:02 Discharge Date/Time May 31, 2017 at 15:45 Discharge Diagnosis 1. Septic shock secondary to bacteremia, resolving 2. Hypotension- improved on medications 3. encephalopathy- stable 4. Hyponatremia, resolved 5. Anemia, chronic, CKD related, s/p transfusion- stable 6. ESRD, DD, on HD, electrolyte abnormalities 7. fail to thrive, moderate malnutrition with hypoalbuminemia- PEG in place 8. paroxysmal atrial fibrillation, sinus rhythm, not a candidate for anticoagulant 9. history of cerebrovascular accident 10. aortic stenosis 11. sick sinus syndrome status post permanent pacemaker 12. dyslipidemia, on statin 13. dementia, chronic, stable Patient Condition: Good Hx of Present Illness Chief complaint: Low blood pressure doing dialysis This 89-year-old male who was sent here from dialysis because of low blood pressure. Patient was discharged from this hospital a few days ago for symptomatic anemia requiring blood transfusion. Patient had dialysis on Sunday successfully. Today he went to dialysis and they do not do it because his blood pressure was 90/40. Patient takes metoprolol 12.5 mg twice daily. Upon my examination patient did awake occasionally look around however he did appear confused. Patient was not conversive. Son was at the bedside who does state that the patient does have dementia. Son reports that the patient still urinates as well in his diaper. Patient states that his father's condition has started to decline in the recent past. Patient denied any chest pain. Patient' s son does state that he has had very poor appetite and has been drinking very minimal amount of water. Of note patient was recently discharged and it was noted that the patient was experiencing failure to thrive. He was not considered a candidate for anticoagulation secondary to patient's anemia. Allergies: NKDA Medications: See MAR Hospital Course SUBJECTIVE: Congested, lethargic, afebrile INDWELLINGS: PEG, right IJ PermCath, PICC line placed on 05/22/2017. ANTIMICROBIALS: Vancomycin. PHYSICAL EXAMINATION: GENERAL: This is a fragile, chronically ill-appearing, elderly man who is in mild distress. HEENT: Head atraumatic, normocephalic. Sclerae anicteric. Buccal mucosa dry. NECK: Supple. Trachea midline. CHEST: Rise symmetrical. Breath sounds bilateral exp wheezes. HEART: S1, S2. ABDOMEN: Soft. Bowel tones present. EXTREMITIES: Without cyanosis. ASSESSMENT: 1. S/p septic shock 2. Acute encephalopathy. 3. Acute on chronic anemia 4. Fluid overload, poss ongoing aspiration 2 to secretion retention. 5. End-stage renal disease, hemodialysis dependent. 6. Status post enterococcal bacteremia. Repeat blood cultures negative. 7. Coronary artery disease with a history of permanent pacemaker placement. PLAN: The patient remains unchanged. Dc Vanco, start Zosyn, continue aspiration precautions, pulmonary toilet, HD per renal DW Dr Marvin Home Meds Active Scripts Collagenase* (Santyl*) 30 Gm Oint..gm., 1 APPLIC TOP DAILY for 30 Days, #1 TUB Prov:VIV FORD MD 05/29/17 Balsam [place] Oil (Venelex Ointment) 60 Gm Oint..gm., 1 APPLIC TOP BID for 30 Days, #1 TUB Prov:VIV FORD MD 05/29/17 Aspirin (Aspirin) 81 Mg Chew, 81 MG GTB DAILY for 30 Days, #30 TAB Prov:VIV FORD MD 05/29/17 Amiodarone Hcl* (Amiodarone Hcl*) 200 Mg Tablet, 200 MG GTB DAILY for 30 Days, # 30 TAB Prov:VIV FORD MD 05/29/17 Midodrine HCl (Midodrine HCl) 2.5 Mg Tablet, 2.5 MG GTB TID@06,12,18 for 30 Days , #90 TAB Prov:VIV FORD MD 05/29/17 Reported Medications Loratadine* (Loratadine*) 10 Mg Tablet, 10 MG PO DAILY, #30 TAB 04/25/17 Famotidine* (Famotidine*) 20 Mg Tablet, 20 MG PO BID, #60 TAB 07/06/16 Donepezil* (Donepezil*) 5 Mg Tablet, 5 MG PO DAILY, #30 TAB 07/06/16 Atorvastatin Calcium* (Atorvastatin Calcium*) 20 Mg Tablet, 20 MG PO HS, TAB 12/14/14 Folic Acid* (Folic Acid*) 1 Mg Tablet, 1 MG PO DAILY, TAB 12/14/14 Sitagliptin* (Januvia*) 25 Mg Tablet, 25 MG PO DAILY, TAB 12/14/14 Calcium Carbonate* ([place]-500*) 1 Tab Tablet, 1 TAB PO BID, TAB 12/14/14 Discontinued Reported Medications Megestrol Acetate* (Megace*) 40 Mg Tab, 40 MG PO DAILY, TAB 04/25/17 Tamsulosin Hcl* (Flomax*) 0.4 Mg Cap.er.24h, 0.4 MG PO HS, CAP 07/06/16 Aspirin (Low Dose Aspirin) 81 Mg Tablet.dr, 81 MG PO DAILY 12/14/14 Discontinued Scripts Metoprolol Tartrate* (Lopressor*) 25 Mg Tab, 12.5 MG PO BID for 30 Days, TAB Prov:KURT MCKINNON MD 05/10/17 Follow-up Plan 1. Take medications through GTube as prescribed 2. You will need 5 more days of antibiotics therapy through PICC line 3. Continue Dialysis as previously scheduled 4. Follow up with your primary care physician in 1 week 5. Follow up with your meat products demonstrator Primary Care Provider Not On Staff Doctor Pending Labs Laboratory Tests Test 05/30/17 21:23 05/31/17 06:17 05/31/17 07:41 05/31/17 10:21 Bedside Glucose 124mg/dL (70-220) 90mg/dL (70-220) 106mg/dL (70-220) White Blood Count 9.310^3/ul (4.8-10.8) Red Blood Count 3.0310^6/ul (4.70-6.10) Hemoglobin 9.0g/dl (14.0-18.0) Hematocrit 27.6% (42.0-52.0) Mean Corpuscular Volume 91.1fl (82.0-101.0) Mean Corpuscular Hemoglobin 29.7pg (29.0-33.0) Mean Corpuscular Hemoglobin Concent 32.6g/dl (32.0-37.0) Red Cell Distribution Width 17.7% (11.5-14.5) Platelet Count 8710^3/UL (140-415) Mean Platelet Volume 11.0fl (7.4-10.4) Neutrophils % 73.0% (39.0-77.0) Lymphocytes % 8.9% (15.0-51.0) Monocytes % 11.1% (0.0-11.0) Eosinophils % 6.3% (0.0-7.0) Basophils % 0.3% (0.0-2.0) Nucleated Red Blood Cells % 0.0/100WBC (0.0-0.0) Neutrophils # 6.810^3/ul (1.6-7.5) Lymphocytes # 0.810^3/ul (0.8-2.9) Monocytes # 1.010^3/ul (0.3-0.9) Eosinophils # 0.610^3/ul (0.0-0.5) Basophils # 0.010^3/ul (0.0-0.1) Nucleated Red Blood Cells # 0.010^3/ul (0.0-0.0) Test 05/31/17 10:22 05/31/17 12:16 Sodium Level 137mmol/L (135-144) Potassium Level 4.3mmol/L (3.5-5.1) Chloride Level 101mmol/L (97-110) Carbon Dioxide Level 29mmol/L (21-31) Anion Gap 11 (8-16) Blood Urea Nitrogen 52mg/dl (7-20) Creatinine 4.05mg/dl (0.61-1.24) Glucose Level 98mg/dl (70-220) Calcium Level 7.5mg/dl (8.4-10.2) Phosphorus Level 3.2mg/dl (2.5-4.9) Magnesium Level 2.2mg/dl (1.7-2.5) Albumin 1.9g/dl (3.3-4.9) Bedside Glucose 103mg/dL (70-220) VIV FORD MD May 31, 2017 19:31
[2017-05-31] MEDS ORDERED: PIPER-TAZO 2.25 GM (PMX) 50 ML IVPB SCH (22:00)
== END 2017-05-31 15:45 | DRG 871 ==
LOC: E/R 16:43 → MS3 20:02 → MS4 05-16 18:00 → ICU 05-19 19:34 → MS4 05-27 18:51
PROVIDERS: ADMIT Family Medicine; ATTEND Family Medicine
PROC: 3E1M39Z Irrigation of Peritoneal Cavity using Dialysate, Percutaneous Approach (ICD-10-PCS; 2017-05-16)
PROC: 02HV33Z Insertion of Infusion Device into Superior Vena Cava, Percutaneous Approach (ICD-10-PCS; 2017-05-22)
PROC: 0DH63UZ Insertion of Feeding Device into Stomach, Percutaneous Approach (ICD-10-PCS; 2017-05-25)
PROC: 3E0G76Z Introduction of Nutritional Substance into Upper GI, Via Natural or Artificial Opening (ICD-10-PCS; principal; 2017-05-25 20:00)
DX: A41.81 Sepsis due to Enterococcus (principal); R65.21 Severe sepsis with septic shock; G92 Toxic encephalopathy; E44.0 Moderate protein-calorie malnutrition; E87.0 Hyperosmolality and hypernatremia; N18.6 End stage renal disease; L89.150 Pressure ulcer of sacral region, unstageable; E87.2 Acidosis; I49.5 Sick sinus syndrome; F03.90 Unspecified dementia, unspecified severity, without behavioral disturbance, psychotic disturbance, mood disturbance, and anxiety; I48.0 Paroxysmal atrial fibrillation; I95.3 Hypotension of hemodialysis; E86.0 Dehydration; I35.0 Nonrheumatic aortic (valve) stenosis; I25.10 Atherosclerotic heart disease of native coronary artery without angina pectoris; E78.5 Hyperlipidemia, unspecified; D63.1 Anemia in chronic kidney disease; R62.7 Adult failure to thrive; R91.8 Other nonspecific abnormal finding of lung field; Y95 Nosocomial condition; Z66 Do not resuscitate; Z86.73 Personal history of transient ischemic attack (TIA), and cerebral infarction without residual deficits; Z95.0 Presence of cardiac pacemaker; I25.2 Old myocardial infarction; Z68.20 Body mass index [BMI] 20.0-20.9, adult; Z99.2 Dependence on renal dialysis
CPT/HCPCS: 36430; 36569; 70450; 71010; 76937; 80048; 80053; 80069; 80202; 82024; 82533; 82550; 82553; 82728; 82962; 83540; 83605; 83735; 83880; 83930; 84100; 84439; 84443; 84484; 85014; 85018; 85025; 85045; 85610; 85730; 86850; 86900; 86901; 86920; 87040; 87081; 90935; 92526; 92610; 93005; 93306; 93970; 94640; 94664; 96374; 96375; C1769; J0282; J0692; J1644; J1815; J2185; J2370; J2543; J3370; J7030; J7040; J7042; J7060; J7070; P9016; P9047

== ENCOUNTER 2017-06-05 10:55 | Inpatient (IN) | payer MEDICARE, OTHER ==
[~2017-06-05] VITALS: Ht 167.6 cm; Wt 61.8 kg
[2017-06-05] VITALS (8 sets, daily range): BP systolic 93–111; BP diastolic 32–53; PULSE 64–122; RESP 13–29; TEMP 96.7; BMI 21.9
[~2017-06-05 10:55] MED LIST changes: +AMIO200T2 GTB; -ASPI-664 PO; +ASPI81TA3 GTB; +BALS60OI TOP; -MEGE40TA PO; -METO-448 PO; +MIDO2.5T GTB; +SAN30GM TOP; -TAMS-14 PO; -[UNRECOGNIZED DRUG - SUPPLY]
[2017-06-05] MEDS ORDERED: PANTOPRAZOLE 40 MG INJ IV STA (11:22)
[2017-06-05] MEDS ORDERED: CEFEPIME 2GM/50 ML (PMX) 50 ML IVPB STA (11:22)
[2017-06-05] MEDS ORDERED: SODIUM CHLORIDE 0.9% 1L BAG IV* STA (11:22)
[2017-06-05] MEDS ORDERED: VANCOMYCIN 1 GM (PMX) 250 ML IVPB ONE (11:30)
[2017-06-05 11:51] LABS: BASOPHIL # 0.1 10^3/ul (0.0-0.1); BASOPHILS % 0.4 % (0.0-2.0); EOSINOPHILS # 0.8 10^3/ul (0.0-0.5); EOSINOPHILS % 4.6 % (0.0-7.0); HEMATOCRIT 27.1 % (42.0-52.0); HEMOGLOBIN 8.6 g/dl (14.0-18.0); LYMPHOCYTES # 2.5 10^3/ul (0.8-2.9); LYMPHOCYTES % 15.2 % (15.0-51.0); MEAN CORPUSCULAR HEMOGLOBIN 30.2 pg (29.0-33.0); MEAN CORPUSCULAR HGB CONC 31.7 g/dl (32.0-37.0); MEAN CORPUSCULAR VOLUME 95.1 fl (82.0-101.0); MEAN PLATELET VOLUME 11.1 fl (7.4-10.4); MONOCYTE # 1.3 10^3/ul (0.3-0.9); MONOCYTES % 7.7 % (0.0-11.0); NEUTROPHIL # 11.9 10^3/ul (1.6-7.5); NEUTROPHILS % 71.2 % (39.0-77.0); PLATELET COUNT 198 10^3/UL (140-415); RED BLOOD COUNT 2.85 10^6/ul (4.70-6.10); RED CELL DISTRIBUTION WIDTH 17.8 % (11.5-14.5); WHITE BLOOD COUNT 16.7 10^3/ul (4.8-10.8)
[2017-06-05] MEDS ORDERED: NORepinephrine 8MG/250 ML (PMX 250 ML ONE (12:03)
--- NOTE | 2017-06-05 12:05 | RADRPT ---
PROCEDURE: XR Chest. CLINICAL INDICATION: Shortness of breath. TECHNIQUE: Single frontal view. COMPARISON: 05/31/2017. FINDINGS: A tunneled right internal jugular vein dialysis catheter and left-sided dual lead permanent pacemake r remain in satisfactory position. There is cardiomegaly and calcification in the aorta consistent w ith atherosclerosis. There is air space disease at both lung bases consistent with atelectasis or pneumonia, unchanged. Moderate bilateral pleural effusions are unchanged. There is no pneumothorax. IMPRESSION: 1. No change from the 05/31/2017 chest radiograph. RPTAT: QQ .Luis Cruz MD, MD Date Time Electronically viewed and signed by .Luis Cruz MD, MD on 06/05/2017 12:04 .R/
[2017-06-05] MEDS: NORepinephrine 8MG/250 ML (PMX 250 ML IV SCH ×2 (12:16→22:30)
[2017-06-05 12:23] LABS: ALBUMIN/GLOBULIN RATIO 0.57; BILIRUBIN,INDIRECT 0.1 mg/dl (0-1.1); BILIRUBIN,TOTAL 0.1 mg/dl (0.2-1.3); CALCIUM 7.6 mg/dl (8.4-10.2); CREATININE 4.06 mg/dl (0.61-1.24); POTASSIUM 4.6 mmol/L (3.5-5.1); TOTAL PROTEIN 5.5 g/dl (6.1-8.1)
[2017-06-05 12:43] LABS: TROPONIN-I 0.226 ng/ml (0.00-0.12)
[2017-06-05] MEDS ORDERED: CALC667T2 PO (13:17)
[2017-06-05] MEDS ORDERED: MEGE40TA PO (13:18)
[2017-06-05] MEDS ORDERED: DONE5TAB46 PO (13:21)
[2017-06-05] MEDS ORDERED: LAMO25TA PO (13:21)
[2017-06-05] MEDS ORDERED: TAMS0.4C2 PO (13:22)
[2017-06-05] MEDS ORDERED: FURO20TA3 PO (13:22)
[2017-06-05] MEDS ORDERED: NACL 0.9% 3 ML SYG IV SCH (14:00)
[2017-06-05] MEDS ORDERED: DOCUSATE SODIUM 100 MG CAP PO PRN (14:00)
[2017-06-05] MEDS ORDERED: HYDROCODONE/APAP (5/325) TAB PO PRN (14:00)
[2017-06-05] MEDS ORDERED: NA PHOSPHATE/BIPHOS 133 ML ENEMA PR PRN (14:00)
[2017-06-05] MEDS ORDERED: VANCOMYCIN IV PER PHARMACY XX SCH (14:00)
[2017-06-05] MEDS ORDERED: ONDANSETRON 4 MG INJ IV PRN (14:00)
[2017-06-05] MEDS ORDERED: hydrALAzine 20 MG INJ IV PRN (14:00)
[2017-06-05] MEDS ORDERED: NITROGLYCERIN (SL) 0.4 MG TAB SL PRN (14:00)
[2017-06-05] MEDS ORDERED: LORAZEPAM 0.5 MG TAB PO PRN (14:00)
[2017-06-05] MEDS ORDERED: MAGNESIUM HYDROXIDE 30ML CUP PO PRN (14:00)
[2017-06-05 14:11] LABS: ADD UMIC YES; UR ASCORBIC ACID NEGATIVE (NEGATIVE); UR BACTERIA FEW /HPF (NONE SEEN); UR BILIRUBIN (Dip) NEGATIVE (NEGATIVE); UR BLOOD (Dip) NEGATIVE (NEGATIVE); UR CLARITY CLEAR (CLEAR); UR COLOR AMBER (YELLOW); UR GLUCOSE (Dip) 3+ mg/dL (NEGATIVE); UR KETONES (Dip) NEGATIVE (NEGATIVE); UR LEUKOCYTE ESTERASE (Dip) NEGATIVE Leu/ul (NEGATIVE); UR MUCUS MODERATE /HPF (NONE SEEN); UR NITRITE (Dip) NEGATIVE (NEGATIVE); UR RBC 6 /HPF (0-5); UR TOTAL PROTEIN (Dip) 3+ mg/dl (NEGATIVE); UR UROBILINOGEN (Dip) NEGATIVE (NEGATIVE)
--- NOTE | 2017-06-05 14:18 | ERD ---
ER Documentation Chief Complaint Chief Complaint PT BIB RA 81 for deaturation and tachypnic durin dialysis session. HPI 89-year-old male with a history of ESRD on hemodialysis, dementia, hypertension , CHF, diabetes brought in by ambulance from his dialysis center after developing shortness of breath and hypoxia during his dialysis session. For this reason, his dialysis was not completed. The patient is unable to answer any questions. He is in significant respiratory distress. ROS Unable to answer questions given altered mental status and severe respiratory distress Medications Home Meds Reported Medications Furosemide* (Furosemide*) 20 Mg Tablet, 20 MG PO DAILY, #60 TAB 06/05/17 Tamsulosin Hcl* (Tamsulosin Hcl*) 0.4 Mg Cap.er.24h, 0.4 MG PO HS, CAP 06/05/17 Donepezil* (Aricept*) 5 Mg Tablet, 5 MG PO QHS, TAB 06/05/17 Lamotrigine* (Lamotrigine*) 25 Mg Tablet, 25 MG PO DAILY, TAB 06/05/17 Megestrol Acetate* (Megace*) 40 Mg Tab, 40 MG PO DAILY, TAB 06/05/17 Calcium Acetate* (Phoslo*) 667 Mg Tablet, 667 MG PO WITH MEALS, TAB 06/05/17 Famotidine* (Famotidine*) 20 Mg Tablet, 20 MG PO BID, #60 TAB 07/06/16 Atorvastatin Calcium* (Atorvastatin Calcium*) 20 Mg Tablet, 20 MG PO HS, TAB 12/14/14 Folic Acid* (Folic Acid*) 1 Mg Tablet, 1 MG PO DAILY, TAB 12/14/14 Sitagliptin* (Januvia*) 25 Mg Tablet, 25 MG PO DAILY, TAB 12/14/14 Discontinued Reported Medications Loratadine* (Loratadine*) 10 Mg Tablet, 10 MG PO DAILY, #30 TAB 04/25/17 Donepezil* (Donepezil*) 5 Mg Tablet, 5 MG PO DAILY, #30 TAB 07/06/16 Calcium Carbonate* ([place]-500*) 1 Tab Tablet, 1 TAB PO BID, TAB 12/14/14 Megestrol Acetate* (Megace*) 40 Mg Tab, 40 MG PO DAILY, TAB 04/25/17 Tamsulosin Hcl* (Flomax*) 0.4 Mg Cap.er.24h, 0.4 MG PO HS, CAP 07/06/16 Aspirin (Low Dose Aspirin) 81 Mg Tablet.dr, 81 MG PO DAILY 12/14/14 Discontinued Scripts Collagenase* (Santyl*) 30 Gm Oint..gm., 1 APPLIC TOP DAILY for 30 Days, #1 TUB Prov:VIV FORD MD 05/29/17 Balsam [place] Oil (Venelex Ointment) 60 Gm Oint..gm., 1 APPLIC TOP BID for 30 Days, #1 TUB Prov:VIV FORD MD 05/29/17 Aspirin (Aspirin) 81 Mg Chew, 81 MG GTB DAILY for 30 Days, #30 TAB Prov:VIV FORD MD 05/29/17 Amiodarone Hcl* (Amiodarone Hcl*) 200 Mg Tablet, 200 MG GTB DAILY for 30 Days, # 30 TAB Prov:VIV FORD MD 05/29/17 Midodrine HCl (Midodrine HCl) 2.5 Mg Tablet, 2.5 MG GTB TID@06,12,18 for 30 Days , #90 TAB Prov:VIV FORD MD 05/29/17 Metoprolol Tartrate* (Lopressor*) 25 Mg Tab, 12.5 MG PO BID for 30 Days, TAB Prov:KURT MCKINNON MD 05/10/17 Allergies Allergies: Coded Allergies: No Known Allergy (Unverified , 06/05/17) PMhx/Soc Medical and Surgical Hx: Unable to obtain History of Surgery: Yes Anesthesia Reaction: No Hx Respiratory Disorders: Yes (pnuemonia) Hx Cardiac Disorders: Yes (pacemaker) Hx Psychiatric Problems: Yes (dementia) Hx Miscellaneous Medical Probl: Yes Hx Alcohol Use: No Hx Substance Use: No Hx Tobacco Use: No Smoking Status: Never smoker FmHx Family History: other (Unable to obtain) Physical Exam Vitals Vital Signs Date Time Temp Pulse Resp B/P Pulse Ox O2 Delivery O2 Flow Rate FiO2 06/05/17 15:45 97.1 91 16 78/43 100 BIPAP 06/05/17 15:30 95 100 35 06/05/17 15:30 97.1 95 14 116/66 100 BIPAP 06/05/17 15:15 97.1 97 16 114/68 100 BIPAP 06/05/17 15:00 97.5 93 18 119/42 100 BIPAP 06/05/17 14:45 97.5 95 18 124/57 100 BIPAP 06/05/17 14:30 97.5 96 16 115/67 100 BIPAP 06/05/17 14:15 98.3 94 16 115/67 100 BIPAP 06/05/17 14:00 98.7 102 19 113/37 100 BIPAP 06/05/17 13:45 98.7 108 18 107/39 100 BIPAP 06/05/17 13:30 98.7 107 20 104/37 100 BIPAP 06/05/17 13:29 92 100 100 06/05/17 13:15 98.7 109 20 107/37 100 BIPAP 06/05/17 13:00 98.5 116 22 111/38 100 BIPAP Non Rebreather 06/05/17 12:45 98.7 120 26 110/37 98 Non Rebreather 15.0 06/05/17 12:30 98.7 118 24 115/65 98 Non Rebreather 15.0 06/05/17 12:15 98.7 114 26 93/38 98 Non Rebreather 15.0 06/05/17 11:49 15 06/05/17 11:36 97.8 120 28 98/38 96 06/05/17 11:33 15.0 Physical Exam Const: Severe respiratory distress, chronically ill-appearing, nontoxic, no diaphoresis Head: Atraumatic Eyes: Normal Conjunctiva ENT: Dry oral mucosa Neck: Full range of motion. Resp: Tachypnea, diminished breath sounds bilaterally with bibasilar crackles , no wheezing Cardio: Tachycardic, regular rhythm, no murmurs Abd: Soft, G-tube in place, non distended. Abdominal wall pitting edema. Normal bowel sounds Skin: No petechiae or rashes Back: Sacral decubitus ulcer, melena in diaper Rectal: Normal tone, No mass, Positive control Stool: +melena Guaiac: Positive Ext: 2+ pitting edema in all 4 extremities Neur: Awake, alert, making incomprehensible sounds, spontaneously moving all extremities. Localizes the pain Result Diagram: 06/05/17 1133 06/05/17 1133 Results 24 hrs Laboratory Tests Test 06/05/17 11:24 06/05/17 11:33 06/05/17 11:34 06/05/17 11:35 Free Thyroxine 2.61ng/dl White Blood Count 16.710^3/ul Red Blood Count 2.8510^6/ul Hemoglobin 8.6g/dl Hematocrit 27.1% Mean Corpuscular Volume 95.1fl Mean Corpuscular Hemoglobin 30.2pg Mean Corpuscular Hemoglobin Concent 31.7g/dl Red Cell Distribution Width 17.8% Platelet Count 10293^3/UL Mean Platelet Volume 11.1fl Neutrophils % 71.2% Lymphocytes % 15.2% Monocytes % 7.7% Eosinophils % 4.6% Basophils % 0.4% Nucleated Red Blood Cells % 0.0/100WBC Neutrophils # 11.910^3/ul Lymphocytes # 2.510^3/ul Monocytes # 1.310^3/ul Eosinophils # 0.810^3/ul Basophils # 0.110^3/ul Nucleated Red Blood Cells # 0.010^3/ul Sodium Level 140mmol/L Potassium Level 4.6mmol/L Chloride Level 104mmol/L Carbon Dioxide Level 26mmol/L Anion Gap 15 Blood Urea Nitrogen 60mg/dl Creatinine 4.06mg/dl Glucose Level 147mg/dl Calcium Level 7.6mg/dl Total Bilirubin 0.1mg/dl Direct Bilirubin 0.00mg/dl Indirect Bilirubin 0.1mg/dl Aspartate Amino Transf (AST/SGOT) 51IU/L Alanine Aminotransferase (ALT/SGPT) 34IU/L Alkaline Phosphatase 157IU/L Troponin I 0.226ng/ml B-Type Natriuretic Peptide 85859TF/ML Total Protein 5.5g/dl Albumin 2.0g/dl Globulin 3.50g/dl Albumin/Globulin Ratio 0.57 Lactic Acid Level 5.8mmol/L Stool Occult Blood POSITIVE Test 06/05/17 13:45 06/05/17 14:25 Urine Color YEMI Urine Clarity CLEAR Urine pH 7.0 Urine Specific [place] 1.030 Urine Ketones NEGATIVEmg/dL Urine Nitrite NEGATIVEmg/dL Urine Bilirubin NEGATIVEmg/dL Urine Urobilinogen NEGATIVEmg/dL Urine Leukocyte Esterase NEGATIVELeu/ul Urine Microscopic RBC 6/HPF Urine Microscopic WBC 27/HPF Urine Bacteria FEW/HPF Urine Mucus MODERATE/HPF Urine Hemoglobin NEGATIVEmg/dL Urine Glucose 3+mg/dL Urine Total Protein 3+mg/dl Lactic Acid Level 2.0mmol/L Current Medications Medications (Trade) Dose Ordered Sig/Prateek Route PRN Reason Start Time Stop Time Status Last Admin Dose Admin Sodium Chloride (NS) 1,800 ml BOLUS OVER 2 HOURS STAT IV* 06/05/17 11:22 06/05/17 11:25 DC 06/05/17 11:45 Pantoprazole 40 mg 40 mg ONCE STAT IV 06/05/17 11:22 06/05/17 11:25 DC 06/05/17 11:45 Cefepime HCl 50 ml @ 100 mls/hr ONCE STAT IVPB 06/05/17 11:22 06/05/17 11:51 DC 06/05/17 11:45 Vancomycin HCl 250 ml @ 125 mls/hr ONCE ONCE IVPB 06/05/17 11:30 06/05/17 13:29 DC 06/05/17 12:16 Norepinephrine 250 ml @ 1.875 mls/ hr TITRATE IV 06/05/17 12:30 06/05/17 12:16 Norepinephrine (Levophed) 250 ml @ [facility] ONCE .ROUTE 06/05/17 12:03 06/05/17 12:04 DC IV Flush (NS 3 ml) 3 ml PER PROTOCOL IV 06/05/17 14:00 Ondansetron HCl (Zofran Inj) 4 mg Q6H PRN IV NAUSEA AND/OR VOMITING 06/05/17 14:00 Acetaminophen (Tylenol Tab) 650 mg Q6H PRN PO PAIN LEVEL 1-3 OR FEVER 06/05/17 14:00 Acetaminophen/ Hydrocodone Bitart ([place] (5/325)) 1 tab Q6H PRN PO MODERATE PAIN LEVEL 4-6 06/05/17 14:00 Hydromorphone HCl (Dilaudid) 0.5 mg Q6H PRN IV SEVERE PAIN LEVEL 7-10 06/05/17 15:00 Docusate Sodium (Colace) 100 mg Q12H PRN PO CONSTIPATION 06/05/17 14:00 Magnesium Hydroxide (Milk Of Mag) 30 ml DAILY PRN PO CONSTIPATION 06/05/17 14:00 Sodium Biphosphate/ Sodium Phosphate 133 ml 133 ml DAILY PRN [place] CONSTIPATION 06/05/17 14:00 Sodium Chloride (1/2 NS) 1,000 ml @ 75 mls/hr [id number] IV 06/05/17 13:38 06/05/17 16:23 Lorazepam (Ativan) 0.5 mg Q6H PRN PO ANXIETY 06/05/17 14:00 Albuterol/ Ipratropium 3 ml 3 ml Q4H RESP THERAPY PRN HHN SHORTNESS OF BREATH 06/05/17 14:00 Piperacillin Sod/ Tazobactam Sod (Zosyn 2.25gm/ 50ml (Pmx)) 50 ml @ 100 mls/hr Q8 IVPB 06/05/17 17:00 Vancomycin HCl (Vanco Iv Per Pharmacy) VANCOMYCIN PER PHARMACY NOTE XX 06/05/17 14:00 Hydralazine HCl (Apresoline) 10 mg Q6H PRN IV ELEVATED BLOOD PRESSURE 06/05/17 14:00 Nitroglycerin (Nitroglycerin (Sl Tab) 0.4 Mg) 1 tab Q5M PRN SL ANGINA 06/05/17 14:00 Calcium Acetate (Phoslo) 667 mg WITH MEALS PO 06/05/17 18:00 Famotidine (Pepcid) 10 mg Q24H PO 06/05/17 21:00 Folic Acid (Folic Acid) 1 mg DAILY PO 06/06/17 09:00 Megestrol Acetate 40 mg 40 mg DAILY PO 06/06/17 09:00 Norepinephrine/ Dextrose (Levophed/D5W) 500 ml @ 0.93 mls/hr TITRATE IV 06/05/17 14:00 Procedures/MDM EMERGENT LABS AND DIAGNOSTIC STUDIES: Lab Results above were reviewed and interpreted by me. CBC: leukocytosis, anemia CMP: renal failure Troponin elevated BNP elevated Lactate elevated UA: pending 12-lead EKG was interpreted by Laureano Castro MD: Sinus tachycardia at 114 beats per minute with first degree AV block diffuse T wave inversions Abnormal EKG, No acute STEMI. Radiology Results as interpreted by Radiology below were reviewed by Kelli Castro MD: PROCEDURE: XR Chest. CLINICAL INDICATION: Shortness of breath. TECHNIQUE: Single frontal view. COMPARISON: 05/31/2017. FINDINGS: A tunneled right internal jugular vein dialysis catheter and left-sided dual lead permanent pacemaker remain in satisfactory position. There is cardiomegaly and calcification in the aorta consistent with atherosclerosis. There is air space disease at both lung bases consistent with atelectasis or pneumonia, unchanged. Moderate bilateral pleural effusions are unchanged. There is no pneumothorax. IMPRESSION: 1. No change from the 05/31/2017 chest radiograph. .Luis Cruz MD, MD Date Time Electronically viewed and signed by .Luis Cruz MD, MD on 06/05/2017 12:04 Initial Nursing notes reviewed. Previous Medical Records requested via the Electronic Health Record. EMERGENCY DEPARTMENT COURSE / MEDICAL DECISION MAKING: Patient is presenting with sudden onset respiratory distress and vitals notable for hypertension, tachycardia, tachypnea, and hypoxia. Differential includes but is not limited to acute coronary syndrome, pulmonary embolism, pneumonia, flash pulmonary edema, or pneumothorax. At this time it is difficult to assess what the exact cause of the patient's dyspnea and vital sign abnormalities is. I suspected secondary to fluid overload, but I cannot rule out pneumonia. Chest x-ray did not show any definite evidence of pneumonia. It did show bilateral moderate-sized pleural effusions, which may be contributing to his shortness of breath. Labs were consistent with NSTEMI which may be secondary to an acute CHF exacerbation. She was treated with broad-spectrum antibiotics. Aspirin was not given as the patient had gross melena on exam and stool occult blood was positive. Patient continues to have respiratory distress. He did not tolerate the 30 cc/kg fluid bolus so that was stopped early. He was started on BiPAP, with significant improvement in his respiratory distress. He was also started on norepinephrine, with improvement of his blood pressure. Patient's symptoms have not stabilized and the patient is at risk of rapid decompensation. The patient will be admitted for careful hydration, antibiotic therapy, and infectious source control. Severe Sepsis Assessment: Infectious Source: Suspect pulmonary End organ damage indicated by: Lactate > 2.0 mmol/L Hypotension( SBP < 90 or >40 mmHG drop or MAP < 65) Acute Resp Failure (sat < 92% w/o oxygen) Hop Trainer > 2.0 Severe Sepsis Managment: Blood Cultures X 2 before broad spectrum antibiotics initiated within 3 hours of recognition. 30 ml/kg NS bolus Ordered, not completed as pt unable to tolerate Initial Lactate: 5.8 Repeat Lactate pending Critical Care: Time: 45 minutes Treatments/Evaluations: Emergent fluid management, while maintaining close respiratory support. Immediate broad spectrum antibiotic therapy. Simultaneous assessment for possible sources in order to direct therapy. Consideration for invasive and chemical support to prevent respiratory or cardiac collapse. Septic Shock Assessment: Unable to complete fluid bolus as respiratory rate increased and work of breathing increased Hypotensive Treatment: Comfort Care: No Central LIne: Patient already has PICC line in place Vasopressor started: Norepinephrine Accepting Care Team: Current data and ongoing care discussed. Time: Time of admission Primary Provider: Floyd Consulting: none Outstanding Data: cultures Departure Diagnosis: Primary Impression: Shock circulatory Additional Impressions: NSTEMI (non-ST elevated myocardial infarction) CKD (chronic kidney disease) Chronic kidney disease stage: on chronic dialysis Qualified Code: N18.6 - Stage 5 chronic kidney disease on chronic dialysis GI bleed GI bleed type/associated pathology: unspecified gastrointestinal hemorrhage type Qualified Code: K92.2 - Gastrointestinal hemorrhage, unspecified gastrointestinal hemorrhage type Acute respiratory failure Respiratory failure complication: unspecified whether with hypoxia or hypercapnia Qualified Code: J96.00 - Acute respiratory failure, unspecified whether with hypoxia or hypercapnia CHF exacerbation Congestive heart failure type: unspecified congestive heart failure type Qualified Code: I50.9 - Acute on chronic congestive heart failure, unspecified congestive heart failure type Condition: Critical EKNNEKA HERNANDEZ MD Jun 05, 2017 14:16
[2017-06-05] MEDS: SOD CHLORIDE 0.45% 1,000 ML IV SCH ×2 (16:23→23:10)
--- NOTE | 2017-06-05 16:58 | CONS ---
DATE OF ADMISSION: 06/05/2017 DATE OF CONSULTATION: 06/05/2017 SERVICE: Infectious Disease. REASON FOR CONSULTATION: Antibiotic management. HISTORY OF PRESENT ILLNESS: Alexx Hooper is an 89-year-old male who comes in, brought in by antoinette bhakta, for desaturation and tachypnea during dialysis session. The patient is well known to us sin ce he was hospitalized in April 2017. At that time, he was admitted with bilateral infiltrates an d had a long stormy course. On admission, his problems included hypotension secondary to dehydratio n and sepsis. His history included: 1. UTI. 2. Thrombocytopenia. 3. History of anemia of chronic disease. 4. End-stage renal disease, on hemodialysis. 5. Benign prostatic hypertrophy. 6. Adult-onset diabetes mellitus. 7. Pacemaker placement. 8. History of prior stroke. 9. Status post chest dialysis catheter in the past as well as pacemaker placement and catheterizati on. During that hospitalization, he was treated with vancomycin and he was on daptomycin for a period of time, which was discontinued. Currently the patient is noted to have probable pneumonia. He has a pacemaker, senile dementia. PAST MEDICAL HISTORY/OPERATIONS: As outlined. FAMILY HISTORY: Noncontributory. SOCIAL HISTORY: He does not smoke, drink or abuse drugs. ALLERGIES: NONE TO PENICILLIN, SULFA OR FOODS. MEDICATIONS: Per chart. REVIEW OF SYSTEMS: As per HPI. PHYSICAL EXAMINATION: GENERAL: The patient is an elderly appearing male who is lethargic, in no acute distress. He is ta chypneic and tachycardic. SKIN: Without generalized rash. HEENT: Within normal limits. NECK: Supple. LYMPH NODES: None palpable. CHEST: Decreased breath sounds at the bases. HEART: Without murmur or gallop. ABDOMEN: Soft, nontender, without organosplenomegaly or masses. EXTREMITIES: Without cyanosis, clubbing, or edema. RECTAL AND GENITAL: Deferred. NEUROLOGIC: No focal neurological abnormalities. ANCILLARY LABORATORY DATA: White count 16.7, H and H of 8.6 and 27.1, platelet count 198,000. BUN and creatinine 60/4.06, so he has markedly elevated white count. The patient was placed on Levophed and started on vancomycin and cefepime. His chest x-ray shows a tunneled right internal jugular vein dialysis catheter, left-sided dual-lead permanent pacemaker, cardiomegaly, calcification in the aorta consistent with atherosclerosis. The re is airspace disease in both lungs consistent with atelectasis or pneumonia, unchanged. Moderate bilateral pleural effusions, no pneumothorax, no change from 05/31/2017. His urine is negative for leukocyte esterase and for nitrites. His occult stool was positive. We will continue him on his current therapy of vancomycin and cefepime. Lactic acid, blood cultures were done. Urine culture also was ordered. I concur with the current therapy. I will dictate my findings to the hospitalist. Dictated By: ZUHAIR ACVANAUGH MD, JD/DARON Conf#: [id number] DID#: [id number]
[2017-06-05 16:59] LABS: INR 1.12; PROTIME 14.4 Sec (12.2-14.2); PT RATIO 1.1
[2017-06-05 17:00] LABS: PARTIAL THROMBOPLASTIN TIME 59.2 Sec (25.0-35.0)
[2017-06-05 17:15] LABS: CK-MB 4.56 ng/ml (0.0-2.4); TROPONIN-I 0.211 ng/ml (0.00-0.12)
[2017-06-05] MEDS: PIPER-TAZO 2.25 GM (PMX) 50 ML IVPB SCH ×2 (17:42→23:09)
[2017-06-05] MEDS: CALCIUM ACETATE 667 MG CAP PO SCH (18:00)
--- NOTE | 2017-06-05 18:27 | CONS ---
DATE OF ADMISSION: 06/05/2017 DATE OF CONSULTATION: 06/05/2017 TYPE OF CONSULTATION: Pulmonary REASON FOR CONSULTATION: Hypoxemic respiratory failure. Thank you, Dr. Alvarez, for this consultation. HISTORY OF PRESENT ILLNESS: This is an unfortunate 89-year-old gentleman with multiple medical prob lems including mild encephalopathy, recurrent pneumonia, end-stage renal failure on hemodialysis, re current septic shock, aortic stenosis, transferred from long-term facility for worsening short ness of breath and hypoxemia requiring initiation of noninvasive positive pressure ventilation. The patient was only recently discharged from this facility, presents today with symptoms as above. La bs on this admission show a white count 16.7, hemoglobin 8.6, platelets 198, BUN 60, creatinine 4.06 . INR was pending. Arterial blood gas is pending. DIAGNOSTIC DATA: Chest x-ray demonstrated hemodialysis catheter in place, bilateral patchy infiltra gerson with moderate pleural effusions. MEDICATIONS: Per chart. ALLERGIES: NONE. SOCIAL HISTORY: Nonsmoker, no alcohol, no history of drug use. FAMILY HISTORY: Noncontributory. SYSTEMS REVIEW: A 12-point review of systems was negative other than that mentioned above. PHYSICAL EXAMINATION: GENERAL: Chronically ill-appearing gentleman on noninvasive positive pressure ventilation. VITAL SIGNS: Currently afebrile, pulse is 91, blood pressure 116/66, O2 saturation 96% on FIO2 of 3 5%. NECK: JVD is elevated. CARDIAC: S1, S2, II/ systolic ejection murmur. CHEST: Diminished air entry bilaterally. ABDOMEN: Soft, nontender. No guarding or rebound. EXTREMITIES: No cyanosis, clubbing, edema. NEUROLOGIC: Generalized weakness. LABORATORIES: White count 16.7, hemoglobin 8.6, BUN 60, creatinine 4.06. Chest x-ray findings as a magdy. IMPRESSION AND PLAN: 1. Hypoxemic respiratory failure, likely secondary to volume overload. 2. Likely underlying pneumonia, possibly health-care associated. 3. Dysphagia. 4. Dementia. 5. End-stage renal failure. RECOMMENDATIONS 1. Continue broad-spectrum antibiotics. 2. Emergent hemodialysis with volume removal. 3. Broad-spectrum antibiotics. 4. Aspiration precautions. 5. Palliative care consult, as the patient is clearly failing discharges and with multiple comorbid ities, more conservative approach may be appropriate. Dictated By: TIMBO POOLE/DARON Conf#: [id number] [facility]#: [id number]
--- NOTE | 2017-06-05 18:34 | HP ---
DATE OF ADMISSION: 06/05/2017 CHIEF COMPLAINT: This is an 89-year-old male with chief complaint of oxygen desaturation, tachypneic, lethargy, shortness of breath. HISTORY OF PRESENT ILLNESS: An 89-year-old male, past medical history of recent septic shock and hypotension, prior pneumonia, end-stage renal disease on dialysis, paroxysmal atrial fibrillation, prior CVA, aortic stenosis, sick sinus syndrome status post pacemaker, high cholesterol and chronic dementia who was brought in from dialysis center today because of hypoxia, tachypnea and shortness of breath. Most information is obtained from the ER documentation as the patient is presently on BiPAP and unable to provide full HPI. So, no review of systems could be obtained at this time. The story is that the patient apparently received about 2 1/2 hours of dialysis before he started to desaturate, became tachycardiac and tachypneic and also short of breath, and he was sent over here to the emergency room. When he came in today, he was found with some low blood pressure, systolic blood pressure was in the 78 range. He was also found with elevated lactic acid today of 5.8, also his troponin was elevated 0.226, and his BNP was high at 51,000, and his white blood cell count was elevated at 16.7 and he received BiPAP in the ER today which he is presently still on. The patient was last here at our hospital from May 15 to May 31, 2017, for septic shock secondary to bacteremia at that time. The patient was started on Levophed in the ER. PAST MEDICAL HISTORY: As stated above. ALLERGIES: NO KNOWN DRUG ALLERGIES. MEDICATIONS: Home medications 1. Megace 40 mg daily. 2. Aricept 5 mg at bedtime. 3. Flomax 0.4 mg at bedtime. 4. Atorvastatin 20 mg at bedtime. 5. Lamotrigine 25 mg daily. 6. PhosLo 667 mg with meals. 7. Lasix 20 mg p.o. daily. 8. Famotidine 20 mg b.i.d. 9. Januvia 25 mg daily. 10. Folic acid 1 mg daily. PAST SURGICAL HISTORY: He has had pacemaker placement in the past and right chest dialysis catheter placed in the past. SOCIAL HISTORY: Negative for smoking, drinking, and IV drug abuse. FAMILY HISTORY: Noncontributory. PHYSICAL EXAMINATION: VITAL SIGNS: Today vital signs, T-max 97.8, pulse 92-120, respirations 28, blood pressure 78/40 to 98 systolic over 38, satting at 100 percent on BiPAP. GENERAL: Patient lying in bed on BiPAP. HEENT: Unable to fully assess. NECK: Supple. No thyromegaly. LUNGS: Distant breath sounds bilaterally. CARDIOVASCULAR: S1, S2 heard. No murmurs, rubs, or gallops. ABDOMEN: Soft, nontender, nondistended. Normal bowel sounds. No rebound or guarding. MUSCULOSKELETAL: Normal lower extremities bilaterally. NEUROLOGIC: Unable to fully assess because patient is lethargic. DATA: WBC 16.7, hemoglobin 8.6, hematocrit 27.1, platelets 198. Sodium 140, potassium 4.6, chloride 104, CO2 of 26, BUN 60, creatinine 4.06, glucose 147. He had a chest x-ray performed today, shows no change from the chest x-ray from May 31 and that one showed persistent left basilar consolidation or atelectasis with possible underlying pleural effusion, interval increased opacification of the right base, increased pulmonary vascular congestion, cardiomegaly with thoracic aortic atherosclerosis. His UA today was negative for nitrites, negative for leukocyte esterase. His stool occult test is positive today. ASSESSMENT AND PLAN: An 89-year-old male coming in with hypotension, tachypnea, tachycardia, hypoxia, after getting partial dialysis performed today, with recent diagnosis for septic shock. 1. Septic shock. Again, patient has leukocytosis. He was recently treated for bacteremia. He has got tachypnea, as well. He is on BiPAP, so his chest x-ray shows some infiltrates, unclear source of septic shock, possibly secondary to upper respiratory infection. In any event, we will check TSH, A1c, and lipid panel. Admit him to ICU. Put him on IV fluids. His lactic acid was also elevated. Trend that, as well. Put him on broad-spectrum antibiotics. Tylenol p.r.n. pain and fevers. Get infectious disease consult. Follow up final culture results, as well. 2. End-stage renal disease on dialysis. We will get a renal consult with Dr. Carlyn Leblanc, that is his renal doctor. Consider continuing PhosLo. 3. History of anemia of chronic disease. Hemoglobin is presently stable, but a stool occult test is positive. Consider GI consult. Continue to monitor for now. 4. History of prior stroke. Continue to monitor for now. 5. History of paroxysmal atrial fibrillation. Continue to monitor heart rate on monitoring. 6. Encephalopathy stable. Continue to monitor for now. 7. History of sick sinus syndrome status post pacemaker placement in the past. Again, continue to monitor on telemetry, monitoring for now. 8. High cholesterol. Continue statin. 9. Gastrointestinal prophylaxis. H2 felix. 10. Deep venous thrombosis prophylaxis. Avoid all anticoagulants given his positive stool occult test, put him on SCDs. 11. Consider pulmonary consult, as well. Dictated By: Armin Alvarez MD /robel/oj /Document#: [id number]
[2017-06-05] MEDS ORDERED: FAMOTIDINE 20 MG TAB PO SCH (21:00)
[2017-06-05] MEDS: HYDROmorphONE 1 MG/ML SYG IV PRN (22:20)
[2017-06-05 22:50] LABS: CK-MB 3.9 ng/ml (0.0-2.4); TROPONIN-I 0.223 ng/ml (0.00-0.12)
[2017-06-05 23:01] LABS: AADO2 Arterial 107.4 mmHg (7.0-24.0); Allen Test ACCEPTAB; Arterial Base Excess 0.3 mmol/L (-3.0-3); Arterial COHb 0.3 % (0.0-3.0); Arterial HCO3 24.7 mmol/L (22.0-26.0); Arterial MetHb 0.5 % (0.0-1.5); Arterial Total Hemglobin 7.6 g/dl (12.0-18.0); Blood Gas IEPAP 15/5; MODE MASK - BIPAP
[2017-06-05] MEDS: ACETAMINOPHEN 325 MG TAB PO PRN (23:09)
[2017-06-05] MEDS ORDERED: SOD CHLORIDE 0.9% 250 ML IV ONE (23:30)
[2017-06-06] VITALS (80 sets, daily range): BP systolic 86–149; BP diastolic 31–110; PULSE 76–110; RESP 9–27; Ht 167.6 cm; Wt 61.8 kg
[2017-06-06] MEDS: SOD CHLORIDE 0.45% 1,000 ML IV SCH (01:00)
[2017-06-06] MEDS ORDERED: PENDING SANTYL ORDER FOR WOUND CARE XX PRN (01:30)
[2017-06-06 05:13] LABS: ABNORMAL IP MESSAGE 1; BASOPHILS % 0.3 % (0.0-2.0); EOSINOPHILS # 0.2 10^3/ul (0.0-0.5); EOSINOPHILS % 1.4 % (0.0-7.0); HEMATOCRIT 22.8 % (42.0-52.0); HEMOGLOBIN 7.1 g/dl (14.0-18.0); LYMPHOCYTES % 6.5 % (15.0-51.0); MEAN CORPUSCULAR HEMOGLOBIN 29.3 pg (29.0-33.0); MEAN CORPUSCULAR HGB CONC 31.1 g/dl (32.0-37.0); MEAN CORPUSCULAR VOLUME 94.2 fl (82.0-101.0); MEAN PLATELET VOLUME 10.7 fl (7.4-10.4); MONOCYTE # 1.6 10^3/ul (0.3-0.9); MONOCYTES % 10.5 % (0.0-11.0); NEUTROPHIL # 12.4 10^3/ul (1.6-7.5); NEUTROPHILS % 80.8 % (39.0-77.0); PLATELET COUNT 169 10^3/UL (140-415); POSITIVE DIFF @See below; RED BLOOD COUNT 2.42 10^6/ul (4.70-6.10); RED CELL DISTRIBUTION WIDTH 18.2 % (11.5-14.5); WHITE BLOOD COUNT 15.4 10^3/ul (4.8-10.8)
[2017-06-06] MEDS: PIPER-TAZO 2.25 GM (PMX) 50 ML IVPB SCH ×3 (05:20→21:36)
[2017-06-06 05:50] LABS: CALCIUM 7.1 mg/dl (8.4-10.2); CREATININE 4.48 mg/dl (0.61-1.24); MAGNESIUM 2.1 mg/dl (1.7-2.5); PHOSPHORUS 2.8 mg/dl (2.5-4.9); POTASSIUM 4.7 mmol/L (3.5-5.1); TRIGLYCERIDES 88 mg/dl (0-149)
[2017-06-06 05:51] LABS: HDL CHOLESTEROL 13 mg/dl (31-75)
[2017-06-06 05:55] LABS: CHOLESTEROL < 50 mg/dl (100-200)
[2017-06-06] MEDS: NORepinephrine 8MG/250 ML (PMX 250 ML IV SCH (07:30)
[2017-06-06] MEDS: CALCIUM ACETATE 667 MG CAP PO SCH ×3 (07:35→17:22)
--- NOTE | 2017-06-06 07:53 | CONS ---
Date/Time of Note Date/Time of Note DATE: 06/06/17 TIME: 07:40 Assessment/Plan Assessment/Plan Chief Complaint/Hosp Course 1. shock: probably septic 2. P afib 3. sick sinus syndrome 4. hx PPM; normal functioning now 5. ESRD ON HD 6. hypoxemic resp failure: improved now 7. severe dementia 8. severe anemia 9. hx recent bacteremia. 10. mildly abnormal trop due to above ( sepsis, renal failure, etc. doubt AMI ) . Recommendations: We will hold off on aspirin for now given patient's severe worsening anemia. We will continue with ICU care and Levophed drip. Try to wean off the Levophed if able to tolerate it. Hemodialysis will be continuing to manage as per renal team. Antibiotics are being managed as per internal medicine and possibly ID consultations. Patient is not able to tolerate any beta-felix. How however I will resume patient amiodarone to try to maintain him in sinus rhythm. Electrolytes will be checked periodically and adjusted accordingly. Oxygen supplement will be given a BiPAP as needed will be given as well. Continue with ICU care as long as the patient requires to be on Levophed drip. CODE STATUS is still full code per family's request. Echocardiogram was recently done last month. Continue with ICU care. More than 40 minutes of critical care time was spent in management and treatment of this critically ill patient, excluding any procedures. Thank you for his referral. I will continue to follow along with you. MELVIN BRODERICK MD [facility] Problems: Consultation Date/Type/Reason Admit Date/Time Jun 05, 2017 at 16:11 Date of Consultation: Jun 06, 2017 Type of Consultation: cardiology Reason for Consultation abnormal trop. shock. arrhythmia. Hx of Present Illness CC: hypoxemia, hypotension, shock. HPI: Thank you for this referral. history was obtained from discussion with the physicians and staff from excessive review of the old chart. Patient has required admission to the hospital his old record was reviewed. Patient was also known to me from previous admissions to the hospital. This unfortunate 89-year-old gentleman with multiple complicated medical history who was admitted from the dialysis unit because of hypoxemia and hypotension. Patient initially was severely hypoxemic and required to be on BiPAP. He has been admitted to ICU. Patient was also hypotensive and required to be on Levophed drip. He has history of proximal atrial fibrillation has a sick sinus syndrome with a permanent pacemaker. Review of the old chart show the previously pacemaker was interrogated was personally reviewed over the past few weeks has been functioning normal. However overnight was noted to have heart rate was recorded on the telemetry to as low as 40s. Review of rhythm strip personally showed that he has had multiple PVCs and arrhythmia during that time but no significant evidence of pacemaker malfunction overnight. Currently patient is mostly tachycardic. Patient himself is nonverbal and is not able to provide any history to me.: Admitted to ICU on Levophed drip. PAST MEDICAL HISTORY: History of sick sinus syndrome, status post permanent pacemaker. renal failure on dialysis, history of WI apparently many years ago, history of stroke many years ago, history of dyslipidemia, dementia, diabetes, hx hypertension but recently mostly hypotensive . History of severe anemia unable to anticoagulated been given aspirin due to that. History of multiple admission to the hospital for sepsis shock and bacteremia MEDICATIONS: as per Medical reconciliation, personally reviewed. SURGICAL HISTORY: History of dialysis catheter placement, pacemaker placement a few years ago. SOCIAL HISTORY: The patient is a former smoker. Does not smoke or drink at this point. FAMILY HISTORY: No reported coronary artery disease. ALLERGIES: NO REPORTED ALLERGIES. REVIEW OF SYSTEMS: As above-mentioned only the best I could obtain., patient does not verbalize. General: elerly in no acute distress HEENT: NC/AT. pupils are equal. round. NECK: NO JVD. no stridor. CV: tachycardic. . systolic murmur; no gallop or rubs. PULM: no wheezing . but mild rhonchi. GI: SOFT, NT, ND, no rebound or guarding Extremity: + B/L LE edema. no clubbing. neuro: opens his eyes but does not verbalize. . Psych: calm and pleasant rectal: deferred : normal male ECG Sinus tachy. nonspecific ST T abn ECHO Past Surgical History Past Surgical Hx: other Social History Smoking Status: Never smoker Exam/Review of Systems Vital Signs Vitals Vital Signs Date Time Temp Pulse Resp B/P Pulse Ox O2 Delivery O2 Flow Rate FiO2 06/06/17 05:45 102 18 125/37 100 06/06/17 04:00 98.9 06/06/17 03:47 2.0 06/06/17 01:53 35 06/06/17 01:30 BIPAP Intake and Output 06/05/17 06/05/17 06/06/17 15:00 23:00 07:00 Intake Total 1300 ml 500 ml Output Total 0 ml Balance 1300 ml 500 ml Exam General: THIN. elederly no acute distress HEENT: NC/AT. pupils are equal. round. NECK: NO JVD. no stridor. CV: tachycardic. systolic murmur; no gallop or rubs. PULM: no wheezing but + mild diffuse rhonchi. GI: SOFT, NT, ND, no rebound or guarding Extremity: + B/L LE edema. no clubbing. neuro: awake but nonverbal . Psych: calm and pleasant rectal: deferred : normal male. ECG sinus tachy. nonspecific ST T abn Conclusions 1. Normal left ventricular systolic function. Normal left ventricular cavity size. Left ventricle not well visualized. Moderate concentric left ventricular hypertrophy. Ejection fraction is visually estimated at 60 %. Abnormal Diastolic Function. 2. Mitral valve is not well visualized. Mild mitral leaflet calcification. Mild mitral annular calcification. Trace mitral regurgitation. 3. Aortic valve not well visualized. Moderate aortic stenosis. Aortic valve Max velocity 2.90 m/sec. Max PG 34.00 mmHg. Mean PG 18.00 mmHg. Aortic cusps appear moderately calcified. 4. Normal appearance of the tricuspid valve. Tricuspid valve not well visualized. Estimated peak PA systolic pressure 29 mmHg. There is mild tricuspid regurgitation. 5. very suboptimal study. Results Result Diagram: 06/06/17 0500 06/06/17 0500 Results 24 hrs Laboratory Tests Test 06/05/17 11:24 06/05/17 11:33 06/05/17 11:34 06/05/17 11:35 Free Thyroxine 2.61 H White Blood Count 16.7 #H Red Blood Count 2.85 L Hemoglobin 8.6 L Hematocrit 27.1 L Mean Corpuscular Volume 95.1 Mean Corpuscular Hemoglobin 30.2 Mean Corpuscular Hemoglobin Concent 31.7 L Red Cell Distribution Width 17.8 H Platelet Count 198 # Mean Platelet Volume 11.1 H Neutrophils % 71.2 Lymphocytes % 15.2 Monocytes % 7.7 Eosinophils % 4.6 Basophils % 0.4 Nucleated Red Blood Cells % 0.0 Neutrophils # 11.9 H Lymphocytes # 2.5 Monocytes # 1.3 H Eosinophils # 0.8 H Basophils # 0.1 Nucleated Red Blood Cells # 0.0 Sodium Level 140 Potassium Level 4.6 Chloride Level 104 Carbon Dioxide Level 26 Anion Gap 15 Blood Urea Nitrogen 60 H Creatinine 4.06 H Glucose Level 147 Calcium Level 7.6 L Total Bilirubin 0.1 L Direct Bilirubin 0.00 Indirect Bilirubin 0.1 Aspartate Amino Transf (AST/SGOT) 51 H Alanine Aminotransferase (ALT/SGPT) 34 Alkaline Phosphatase 157 H Troponin I 0.226 *H B-Type Natriuretic Peptide 95487 H Total Protein 5.5 L Albumin 2.0 L Globulin 3.50 H Albumin/Globulin Ratio 0.57 Lactic Acid Level 5.8 *H Stool Occult Blood POSITIVE Test 06/05/17 13:45 06/05/17 14:25 06/05/17 16:25 06/05/17 22:00 Urine Color YEMI Urine Clarity CLEAR Urine pH 7.0 Urine Specific Dobson 1.030 Urine Ketones NEGATIVE Urine Nitrite NEGATIVE Urine Bilirubin NEGATIVE Urine Urobilinogen NEGATIVE Urine Leukocyte Esterase NEGATIVE Urine Microscopic RBC 6 H Urine Microscopic WBC 27 H Urine Bacteria FEW A Urine Mucus MODERATE Urine Hemoglobin NEGATIVE Urine Glucose 3+ H Urine Total Protein 3+ H Lactic Acid Level 2.0 1.6 4.7 *H Prothrombin Time 14.4 H Prothrombin Time Ratio 1.1 INR International Normalized Ratio 1.12 Activated Partial Thromboplast Time 59.2 H Creatine Kinase 78 74 Creatine Kinase Index 5.8 5.3 Creatinine Kinase MB (Mass) 4.56 H 3.90 H Troponin I 0.211 *H 0.223 *H Test 06/05/17 22:45 06/06/17 05:00 Blood Gas Specimen Source Blood arterial Arterial Blood Date Drawn 06/05/2017 10:50:57 PM Arterial Blood pH (Temp corrected) 7.423 Arterial Blood pCO2 (Temp correct) 38.7 Arterial Blood pO2 (Temp corrected) 97.2 H Arterial Blood HCO3 24.7 Arterial Blood Base Excess 0.3 Arterial Blood Oxygen Saturation 96.8 Niall Test ACCEPTAB Arterial Blood Gas Puncture Site Left Radial Arterial Blood Carboxyhemoglobin 0.3 Arterial Blood Methemoglobin 0.5 Blood Gas A-a O2 Differential 107.4 H Oxyhemoglobin Percent 96.0 Total Hemoglobin 7.6 L Blood Gas Temperature 37.0 Blood Gas Respiration Rate 14.0 Blood Gas Actual Respiration Rate 29 Blood Gas Modality MASK - BIPAP FiO2 35.0 Blood Gas IPAP/EPAP Ratio 15/5 Blood Gas Notified Whom Blood Gas Notified Time 06/05/2017 11:01:47 PM White Blood Count 15.4 H Red Blood Count 2.42 L Hemoglobin 7.1 L Hematocrit 22.8 L Mean Corpuscular Volume 94.2 Mean Corpuscular Hemoglobin 29.3 Mean Corpuscular Hemoglobin Concent 31.1 L Red Cell Distribution Width 18.2 H Platelet Count 169 Mean Platelet Volume 10.7 H Neutrophils % 80.8 H Lymphocytes % 6.5 L Monocytes % 10.5 Eosinophils % 1.4 Basophils % 0.3 Nucleated Red Blood Cells % 0.0 Neutrophils # 12.4 H Lymphocytes # 1.0 Monocytes # 1.6 H Eosinophils # 0.2 Basophils # 0.0 Nucleated Red Blood Cells # 0.0 Sodium Level 140 Potassium Level 4.7 Chloride Level 107 Carbon Dioxide Level 28 Anion Gap 10 # Blood Urea Nitrogen 75 H Creatinine 4.48 H Glucose Level 133 Hemoglobin A1c 5.1 Calcium Level 7.1 L Phosphorus Level 2.8 Magnesium Level 2.1 Triglycerides Level 88 Cholesterol Level < 50 L LDL Cholesterol, Calculated HDL Cholesterol 13 L Cholesterol/HDL Ratio Thyroid Stimulating Hormone (TSH) 8.360 H Medications Medications Current Medications Norepinephrine (Levophed) 250 ml @ 1.875 mls/ hr TITRATE IV Last administered on 06/06/17 07:30; Admin Dose 28.125 MLS/HR; Start 06/05/17 at 12:30 Ondansetron HCl (Zofran Inj) 4 mg Q6H PRN IV NAUSEA AND/OR VOMITING; Start 06/05/17 at 14:00 Acetaminophen (Tylenol Tab) 650 mg Q6H PRN PO PAIN LEVEL 1-3 OR FEVER Last administered on 06/05/17 23:09; Admin Dose 650 MG; Start 06/05/17 at 14:00 Acetaminophen/ Hydrocodone Bitart ([place] (5/325)) 1 tab Q6H PRN PO MODERATE PAIN LEVEL 4-6; Start 06/05/17 at 14:00 Hydromorphone HCl (Dilaudid) 0.5 mg Q6H PRN IV SEVERE PAIN LEVEL 7-10 Last administered on 06/05/17 22:20; Admin Dose 0.5 MG; Start 06/05/17 at 15:00 Docusate Sodium (Colace) 100 mg Q12H PRN PO CONSTIPATION; Start 06/05/17 at 14: 00 Magnesium Hydroxide (Milk Of Mag) 30 ml DAILY PRN PO CONSTIPATION; Start at 14:00 Sodium Biphosphate/ Sodium Phosphate 133 ml 133 ml DAILY PRN VT CONSTIPATION; Start 06/05/17 at 14:00 Sodium Chloride (1/2 NS) 1,000 ml @ 75 mls/hr [id number] IV Last administered on 06/05/17 23:10; Admin Dose 75 MLS/HR; Start 06/05/17 at 13:38 Lorazepam 0.5 mg 0.5 mg Q6H PRN PO ANXIETY; Start 06/05/17 at 14:00 Piperacillin Sod/ Tazobactam Sod (Zosyn 2.25gm/ 50ml (Pmx)) 50 ml @ 100 mls/hr Q8 IVPB Last administered on 06/06/17 05:20; Admin Dose 100 MLS/HR; Start 06/05/17 at 17:00 Vancomycin HCl (Vanco Iv Per Pharmacy) VANCOMYCIN PER PHARMACY NOTE XX ; Start 06/05/17 at 14:00 Hydralazine HCl (Apresoline) 10 mg Q6H PRN IV ELEVATED BLOOD PRESSURE; Start 06/05/17 at 14:00 Nitroglycerin (Nitroglycerin (Sl Tab) 0.4 Mg) 1 tab Q5M PRN SL ANGINA; Start 06/05/17 at 14:00 Famotidine (Pepcid) 10 mg Q24H PO Last administered on 06/05/17 23:09; Admin Dose 10 MG; Start 06/05/17 at 21:00 Folic Acid (Folic Acid) 1 mg DAILY PO ; Start 06/06/17 at 09:00 Megestrol Acetate 40 mg 40 mg DAILY PO ; Start 06/06/17 at 09:00 Norepinephrine/ Dextrose (Levophed/D5W) 500 ml @ 0.93 mls/hr TITRATE IV ; Start 06/05/17 at 14:00 [facility]iscellaneous Information [facility] This patient badillo... PRN PRN XX WOUND CARE; Start 06/06/17 at 01:30 MELVIN BRODERICK MD Jun 06, 2017 07:50
[2017-06-06 08:42] LABS: HEMATOCRIT 22.4 % (42.0-52.0)
[2017-06-06] MEDS: MEGESTROL 40 MG TAB PO SCH (09:12)
[2017-06-06] MEDS: FOLIC ACID 1 MG TAB PO SCH (09:12)
--- NOTE | 2017-06-06 09:18 | CONS ---
Date/Time of Note Date/Time of Note DATE: 06/06/17 TIME: 09:16 Consult Date/Type/Reason Admit Date/Time Jun 05, 2017 at 16:11 Initial Consult Date 06/06/17 Type of Consultation: Pulmonary Subjective Patient drowsy but arousable this morning. Off BiPAP. Appears comfortable at rest. No hemodynamic support. Objective Vital Signs Date Time Temp Pulse Resp B/P Pulse Ox O2 Delivery O2 Flow Rate FiO2 06/06/17 08:00 101 06/06/17 08:00 Nasal Cannula 2.0 06/06/17 05:45 18 125/37 100 06/06/17 04:00 98.9 06/06/17 01:53 35 Intake and Output 06/05/17 06/05/17 06/06/17 15:00 23:00 07:00 Intake Total 1300 ml 500 ml Output Total 0 ml Balance 1300 ml 500 ml Exam PHYSICAL EXAMINATION: GENERAL: Chronically ill-appearing gentleman on noninvasive positive pressure ventilation. VITAL SIGNS: NECK: JVD is elevated. CARDIAC: S1, S2, II/ systolic ejection murmur. CHEST: Diminished air entry bilaterally. ABDOMEN: Soft, nontender. No guarding or rebound. EXTREMITIES: No cyanosis, clubbing, edema. NEUROLOGIC: Generalized weakness. Results/Medications Result Diagram: 06/06/17 0809 06/06/17 0500 Results 24 hrs Laboratory Tests Test 06/05/17 11:24 06/05/17 11:33 06/05/17 11:34 06/05/17 11:35 Free Thyroxine 2.61 H White Blood Count 16.7 #H Red Blood Count 2.85 L Hemoglobin 8.6 L Hematocrit 27.1 L Mean Corpuscular Volume 95.1 Mean Corpuscular Hemoglobin 30.2 Mean Corpuscular Hemoglobin Concent 31.7 L Red Cell Distribution Width 17.8 H Platelet Count 198 # Mean Platelet Volume 11.1 H Neutrophils % 71.2 Lymphocytes % 15.2 Monocytes % 7.7 Eosinophils % 4.6 Basophils % 0.4 Nucleated Red Blood Cells % 0.0 Neutrophils # 11.9 H Lymphocytes # 2.5 Monocytes # 1.3 H Eosinophils # 0.8 H Basophils # 0.1 Nucleated Red Blood Cells # 0.0 Sodium Level 140 Potassium Level 4.6 Chloride Level 104 Carbon Dioxide Level 26 Anion Gap 15 Blood Urea Nitrogen 60 H Creatinine 4.06 H Glucose Level 147 Calcium Level 7.6 L Total Bilirubin 0.1 L Direct Bilirubin 0.00 Indirect Bilirubin 0.1 Aspartate Amino Transf (AST/SGOT) 51 H Alanine Aminotransferase (ALT/SGPT) 34 Alkaline Phosphatase 157 H Troponin I 0.226 *H B-Type Natriuretic Peptide 99657 H Total Protein 5.5 L Albumin 2.0 L Globulin 3.50 H Albumin/Globulin Ratio 0.57 Lactic Acid Level 5.8 *H Stool Occult Blood POSITIVE Test 06/05/17 13:45 06/05/17 14:25 06/05/17 16:25 06/05/17 22:00 Urine Color YEMI Urine Clarity CLEAR Urine pH 7.0 Urine Specific [place] 1.030 Urine Ketones NEGATIVE Urine Nitrite NEGATIVE Urine Bilirubin NEGATIVE Urine Urobilinogen NEGATIVE Urine Leukocyte Esterase NEGATIVE Urine Microscopic RBC 6 H Urine Microscopic WBC 27 H Urine Bacteria FEW A Urine Mucus MODERATE Urine Hemoglobin NEGATIVE Urine Glucose 3+ H Urine Total Protein 3+ H Lactic Acid Level 2.0 1.6 4.7 *H Prothrombin Time 14.4 H Prothrombin Time Ratio 1.1 INR International Normalized Ratio 1.12 Activated Partial Thromboplast Time 59.2 H Creatine Kinase 78 74 Creatine Kinase Index 5.8 5.3 Creatinine Kinase MB (Mass) 4.56 H 3.90 H Troponin I 0.211 *H 0.223 *H Test 06/05/17 22:45 06/06/17 05:00 06/06/17 08:04 06/06/17 08:09 Blood Gas Specimen Source Blood arterial Arterial Blood Date Drawn 06/05/2017 10:50:57 PM Arterial Blood pH (Temp corrected) 7.423 Arterial Blood pCO2 (Temp correct) 38.7 Arterial Blood pO2 (Temp corrected) 97.2 H Arterial Blood HCO3 24.7 Arterial Blood Base Excess 0.3 Arterial Blood Oxygen Saturation 96.8 Niall Test ACCEPTAB Arterial Blood Gas Puncture Site Left Radial Arterial Blood Carboxyhemoglobin 0.3 Arterial Blood Methemoglobin 0.5 Blood Gas A-a O2 Differential 107.4 H Oxyhemoglobin Percent 96.0 Total Hemoglobin 7.6 L Blood Gas Temperature 37.0 Blood Gas Respiration Rate 14.0 Blood Gas Actual Respiration Rate 29 Blood Gas Modality MASK - BIPAP FiO2 35.0 Blood Gas IPAP/EPAP Ratio 15/ Blood Gas Notified Whom Blood Gas Notified Time 06/05/2017 11:01:47 PM White Blood Count 15.4 H Red Blood Count 2.42 L Hemoglobin 7.1 L 7.0 L Hematocrit 22.8 L 22.4 L Mean Corpuscular Volume 94.2 Mean Corpuscular Hemoglobin 29.3 Mean Corpuscular Hemoglobin Concent 31.1 L Red Cell Distribution Width 18.2 H Platelet Count 169 Mean Platelet Volume 10.7 H Neutrophils % 80.8 H Lymphocytes % 6.5 L Monocytes % 10.5 Eosinophils % 1.4 Basophils % 0.3 Nucleated Red Blood Cells % 0.0 Neutrophils # 12.4 H Lymphocytes # 1.0 Monocytes # 1.6 H Eosinophils # 0.2 Basophils # 0.0 Nucleated Red Blood Cells # 0.0 Sodium Level 140 Potassium Level 4.7 Chloride Level 107 Carbon Dioxide Level 28 Anion Gap 10 # Blood Urea Nitrogen 75 H Creatinine 4.48 H Glucose Level 133 Hemoglobin A1c 5.1 Calcium Level 7.1 L Phosphorus Level 2.8 Magnesium Level 2.1 Triglycerides Level 88 Cholesterol Level < 50 L LDL Cholesterol, Calculated HDL Cholesterol 13 L Cholesterol/HDL Ratio Thyroid Stimulating Hormone (TSH) 8.360 H Lactic Acid Level 1.2 Medications Current Medications Norepinephrine (Levophed) 250 ml @ 1.875 mls/ hr TITRATE IV Last administered on 06/06/17 07:30; Admin Dose 28.125 MLS/HR; Start 06/05/17 at 12:30 Ondansetron HCl (Zofran Inj) 4 mg Q6H PRN IV NAUSEA AND/OR VOMITING; Start 06/05/17 at 14:00 Acetaminophen (Tylenol Tab) 650 mg Q6H PRN PO PAIN LEVEL 1-3 OR FEVER Last administered on 06/05/17 23:09; Admin Dose 650 MG; Start 06/05/17 at 14:00 Acetaminophen/ Hydrocodone Bitart ([place] (5/325)) 1 tab Q6H PRN PO MODERATE PAIN LEVEL 4-6; Start 06/05/17 at 14:00 Hydromorphone HCl (Dilaudid) 0.5 mg Q6H PRN IV SEVERE PAIN LEVEL 7-10 Last administered on 06/05/17 22:20; Admin Dose 0.5 MG; Start 06/05/17 at 15:00 Docusate Sodium (Colace) 100 mg Q12H PRN PO CONSTIPATION; Start 06/05/17 at 14: 00 Magnesium Hydroxide (Milk Of Mag) 30 ml DAILY PRN PO CONSTIPATION; Start at 14:00 Sodium Biphosphate/ Sodium Phosphate 133 ml 133 ml DAILY PRN [place] CONSTIPATION; Start 06/05/17 at 14:00 Sodium Chloride (1/2 NS) 1,000 ml @ 75 mls/hr [id number] IV Last administered on 06/05/17 23:10; Admin Dose 75 MLS/HR; Start 06/05/17 at 13:38 Lorazepam 0.5 mg 0.5 mg Q6H PRN PO ANXIETY; Start 06/05/17 at 14:00 Piperacillin Sod/ Tazobactam Sod (Zosyn 2.25gm/ 50ml (Pmx)) 50 ml @ 100 mls/hr Q8 IVPB Last administered on 06/06/17 05:20; Admin Dose 100 MLS/HR; Start 06/05/17 at 17:00 Vancomycin HCl (Vanco Iv Per Pharmacy) VANCOMYCIN PER PHARMACY NOTE XX ; Start 06/05/17 at 14:00 Hydralazine HCl (Apresoline) 10 mg Q6H PRN IV ELEVATED BLOOD PRESSURE; Start 06/05/17 at 14:00 Nitroglycerin (Nitroglycerin (Sl Tab) 0.4 Mg) 1 tab Q5M PRN SL ANGINA; Start 06/05/17 at 14:00 Famotidine (Pepcid) 10 mg Q24H PO Last administered on 06/05/17 23:09; Admin Dose 10 MG; Start 06/05/17 at 21:00 Folic Acid (Folic Acid) 1 mg DAILY PO Last administered on 06/06/17 09:12; Admin Dose 1 MG; Start 06/06/17 at 09:00 Megestrol Acetate 40 mg 40 mg DAILY PO Last administered on 06/06/17 09:12; Admin Dose 40 MG; Start 06/06/17 at 09:00 Norepinephrine/ Dextrose (Levophed/D5W) 500 ml @ 0.93 mls/hr TITRATE IV ; Start 06/05/17 at 14:00 Miscellaneous Information (Pending [facility] Order For Wound Care) This patient badillo... PRN PRN XX WOUND CARE; Start 06/06/17 at 01:30 Assessment/Plan Chief Complaint/Hosp Course IMPRESSION 1. Hypoxemic respiratory failure, likely secondary to volume overload. 2. Likely underlying pneumonia, possibly health-care associated. 3. Dysphagia. 4. Dementia. 5. End-stage renal failure. 6. Anemia likely secondary to chronic renal disease. RECOMMENDATIONS 1. Continue broad-spectrum antibiotics. 2. Emergent hemodialysis with volume removal. 3. Broad-spectrum antibiotics. 4. Aspiration precautions. 5. Palliative care consult, 6. Transfusion 1 unit packed red cells with hemodialysis if hemoglobin continues to drop. Problems: TIMBO RAMEY MD, [facility] Jun 06, 2017 09:18
[2017-06-06] MEDS ORDERED: SOD CHLORIDE 0.9% 250 ML IV* ONE (09:24)
--- NOTE | 2017-06-06 09:32 | PN ---
Date/Time of Note Date/Time of Note DATE: 06/06/17 TIME: 09:19 Assessment/Plan VTE Prophylaxis VTE Prophylaxis Intervention: SCD's Lines/Catheters IV C[facility]ter Type (from [facility]): Mid Line Urinary Cath still in place: No Assessment/Plan Chief Complaint/Hosp Course ASSESSMENT AND PLAN: An 89-year-old male coming in with hypotension, tachypnea, tachycardia, hypoxia, after getting partial dialysis performed today, with again septic shock. 1. Septic shock- leukocytosis still present he was recently treated on last admission last month for bacteremia. + tachypnea, as well. He did receive BiPAP , and his chest x-ray shows some infiltrates, unclear source of septic shock, possibly secondary to upper respiratory infection. His lactic acid was also elevated. - f/u TSH, A1c, and lipid panel, continue ICU care. - IV fluids, continue pressor support - continue broad-spectrum antibiotics. Tylenol p.r.n. pain and fevers. - f/u infectious disease consult, pulm rec's. - Follow up final culture results, as well. -Elevated troponins likely secondary to combination of patient's sepsis and renal insufficiency, and less likely VA, follow cardiology recommendations, continue to monitor 2. End-stage renal disease on dialysis-have consulted renal with Dr. Carlyn Leblanc, that is his renal doctor, awaiting official consult, continue PhosLo. 3. History of anemia of chronic disease. Hemoglobin lower today, 7.0, and stool occult test is positive. -Transfuse 2 units PRBC - consider GI consult. 4. History of prior stroke. Continue to monitor for now. 5. History of paroxysmal atrial fibrillation. Continue to monitor heart rate on monitoring. 6. Encephalopathy stable. Continue to monitor for now. 7. History of sick sinus syndrome status post pacemaker placement in the past. Again, continue to monitor on telemetry 8. High cholesterol. Continue statin. 9. Gastrointestinal prophylaxis. H2 felix. 10. Deep venous thrombosis prophylaxis. Avoid all anticoagulants given his positive stool occult test, put him on SCDs. Critical care time spent on patient care today equals 45 minutes. Problems: Subjective 24 Hr Interval Summary Free Text/Dictation Patient still on pressor support, seen by pulmonary, infectious disease, cardiology teams. Exam/Review of Systems Vital Signs Vitals Vital Signs Date Time Temp Pulse Resp B/P Pulse Ox O2 Delivery O2 Flow Rate FiO2 06/06/17 08:00 101 06/06/17 08:00 Nasal Cannula 2.0 06/06/17 05:45 18 125/37 100 06/06/17 04:00 98.9 06/06/17 01:53 35 Intake and Output 06/05/17 06/05/17 06/06/17 15:00 23:00 07:00 Intake Total 1300 ml 500 ml Output Total 0 ml Balance 1300 ml 500 ml Exam GENERAL: Patient lying in bed, on nasal cannula HEENT: Unable to fully assess. NECK: Supple. No thyromegaly. LUNGS: Distant breath sounds bilaterally. CARDIOVASCULAR: S1, S2 heard. No murmurs, rubs, or gallops. ABDOMEN: Soft, nontender, nondistended. Normal bowel sounds. No rebound or guarding, PEG MUSCULOSKELETAL: Normal lower extremities bilaterally. NEUROLOGIC: Unable to fully assess because patient is lethargic. Results Result Diagram: 06/06/17 0809 06/06/17 0500 Results 24 hrs Laboratory Tests Test 06/05/17 11:24 06/05/17 11:33 06/05/17 11:34 06/05/17 11:35 Free Thyroxine 2.61 H White Blood Count 16.7 #H Red Blood Count 2.85 L Hemoglobin 8.6 L Hematocrit 27.1 L Mean Corpuscular Volume 95.1 Mean Corpuscular Hemoglobin 30.2 Mean Corpuscular Hemoglobin Concent 31.7 L Red Cell Distribution Width 17.8 H Platelet Count 198 # Mean Platelet Volume 11.1 H Neutrophils % 71.2 Lymphocytes % 15.2 Monocytes % 7.7 Eosinophils % 4.6 Basophils % 0.4 Nucleated Red Blood Cells % 0.0 Neutrophils # 11.9 H Lymphocytes # 2.5 Monocytes # 1.3 H Eosinophils # 0.8 H Basophils # 0.1 Nucleated Red Blood Cells # 0.0 Sodium Level 140 Potassium Level 4.6 Chloride Level 104 Carbon Dioxide Level 26 Anion Gap 15 Blood Urea Nitrogen 60 H Creatinine 4.06 H Glucose Level 147 Calcium Level 7.6 L Total Bilirubin 0.1 L Direct Bilirubin 0.00 Indirect Bilirubin 0.1 Aspartate Amino Transf (AST/SGOT) 51 H Alanine Aminotransferase (ALT/SGPT) 34 Alkaline Phosphatase 157 H Troponin I 0.226 *H B-Type Natriuretic Peptide 48849 H Total Protein 5.5 L Albumin 2.0 L Globulin 3.50 H Albumin/Globulin Ratio 0.57 Lactic Acid Level 5.8 *H Stool Occult Blood POSITIVE Test 06/05/17 13:45 06/05/17 14:25 06/05/17 16:25 06/05/17 22:00 Urine Color YEMI Urine Clarity CLEAR Urine pH 7.0 Urine Specific [place] 1.030 Urine Ketones NEGATIVE Urine Nitrite NEGATIVE Urine Bilirubin NEGATIVE Urine Urobilinogen NEGATIVE Urine Leukocyte Esterase NEGATIVE Urine Microscopic RBC 6 H Urine Microscopic WBC 27 H Urine Bacteria FEW A Urine Mucus MODERATE Urine Hemoglobin NEGATIVE Urine Glucose 3+ H Urine Total Protein 3+ H Lactic Acid Level 2.0 1.6 4.7 *H Prothrombin Time 14.4 H Prothrombin Time Ratio 1.1 INR International Normalized Ratio 1.12 Activated Partial Thromboplast Time 59.2 H Creatine Kinase 78 74 Creatine Kinase Index 5.8 5.3 Creatinine Kinase MB (Mass) 4.56 H 3.90 H Troponin I 0.211 *H 0.223 *H Test 06/05/17 22:45 06/06/17 05:00 06/06/17 08:04 06/06/17 08:09 Blood Gas Specimen Source Blood arterial Arterial Blood Date Drawn 06/05/2017 10:50:57 PM Arterial Blood pH (Temp corrected) 7.423 Arterial Blood pCO2 (Temp correct) 38.7 Arterial Blood pO2 (Temp corrected) 97.2 H Arterial Blood HCO3 24.7 Arterial Blood Base Excess 0.3 Arterial Blood Oxygen Saturation 96.8 Niall Test ACCEPTAB Arterial Blood Gas Puncture Site Left Radial Arterial Blood Carboxyhemoglobin 0.3 Arterial Blood Methemoglobin 0.5 Blood Gas A-a O2 Differential 107.4 H Oxyhemoglobin Percent 96.0 Total Hemoglobin 7.6 L Blood Gas Temperature 37.0 Blood Gas Respiration Rate 14.0 Blood Gas Actual Respiration Rate 29 Blood Gas Modality MASK - BIPAP FiO2 35.0 Blood Gas IPAP/EPAP Ratio 15/ Blood Gas Notified Whom Blood Gas Notified Time 06/05/2017 11:01:47 PM White Blood Count 15.4 H Red Blood Count 2.42 L Hemoglobin 7.1 L 7.0 L Hematocrit 22.8 L 22.4 L Mean Corpuscular Volume 94.2 Mean Corpuscular Hemoglobin 29.3 Mean Corpuscular Hemoglobin Concent 31.1 L Red Cell Distribution Width 18.2 H Platelet Count 169 Mean Platelet Volume 10.7 H Neutrophils % 80.8 H Lymphocytes % 6.5 L Monocytes % 10.5 Eosinophils % 1.4 Basophils % 0.3 Nucleated Red Blood Cells % 0.0 Neutrophils # 12.4 H Lymphocytes # 1.0 Monocytes # 1.6 H Eosinophils # 0.2 Basophils # 0.0 Nucleated Red Blood Cells # 0.0 Sodium Level 140 Potassium Level 4.7 Chloride Level 107 Carbon Dioxide Level 28 Anion Gap 10 # Blood Urea Nitrogen 75 H Creatinine 4.48 H Glucose Level 133 Hemoglobin A1c 5.1 Calcium Level 7.1 L Phosphorus Level 2.8 Magnesium Level 2.1 Triglycerides Level 88 Cholesterol Level < 50 L LDL Cholesterol, Calculated HDL Cholesterol 13 L Cholesterol/HDL Ratio Thyroid Stimulating Hormone (TSH) 8.360 H Lactic Acid Level 1.2 Medications Medications Current Medications Norepinephrine (Levophed) 250 ml @ 1.875 mls/ hr TITRATE IV Last administered on 06/06/17 07:30; Admin Dose 28.125 MLS/HR; Start 06/05/17 at 12:30 Ondansetron HCl (Zofran Inj) 4 mg Q6H PRN IV NAUSEA AND/OR VOMITING; Start 06/05/17 at 14:00 Acetaminophen (Tylenol Tab) 650 mg Q6H PRN PO PAIN LEVEL 1-3 OR FEVER Last administered on 06/05/17 23:09; Admin Dose 650 MG; Start 06/05/17 at 14:00 Acetaminophen/ Hydrocodone Bitart ([place] (5/325)) 1 tab Q6H PRN PO MODERATE PAIN LEVEL 4-6; Start 06/05/17 at 14:00 Hydromorphone HCl (Dilaudid) 0.5 mg Q6H PRN IV SEVERE PAIN LEVEL 7-10 Last administered on 06/05/17 22:20; Admin Dose 0.5 MG; Start 06/05/17 at 15:00 Docusate Sodium (Colace) 100 mg Q12H PRN PO CONSTIPATION; Start 06/05/17 at 14: 00 Magnesium Hydroxide (Milk Of Mag) 30 ml DAILY PRN PO CONSTIPATION; Start at 14:00 Sodium Biphosphate/ Sodium Phosphate 133 ml 133 ml DAILY PRN IN CONSTIPATION; Start 06/05/17 at 14:00 Sodium Chloride (1/2 NS) 1,000 ml @ 75 mls/hr [id number] IV Last administered on 06/05/17 23:10; Admin Dose 75 MLS/HR; Start 06/05/17 at 13:38 Lorazepam 0.5 mg 0.5 mg Q6H PRN PO ANXIETY; Start 06/05/17 at 14:00 Piperacillin Sod/ Tazobactam Sod (Zosyn 2.25gm/ 50ml (Pmx)) 50 ml @ 100 mls/hr Q8 IVPB Last administered on 06/06/17 05:20; Admin Dose 100 MLS/HR; Start 06/05/17 at 17:00 Vancomycin HCl (Vanco Iv Per Pharmacy) VANCOMYCIN PER PHARMACY NOTE XX ; Start 06/05/17 at 14:00 Hydralazine HCl (Apresoline) 10 mg Q6H PRN IV ELEVATED BLOOD PRESSURE; Start 06/05/17 at 14:00 Nitroglycerin (Nitroglycerin (Sl Tab) 0.4 Mg) 1 tab Q5M PRN SL ANGINA; Start 06/05/17 at 14:00 Famotidine (Pepcid) 10 mg Q24H PO Last administered on 06/05/17 23:09; Admin Dose 10 MG; Start 06/05/17 at 21:00 Folic Acid (Folic Acid) 1 mg DAILY PO Last administered on 06/06/17 09:12; Admin Dose 1 MG; Start 06/06/17 at 09:00 Megestrol Acetate 40 mg 40 mg DAILY PO Last administered on 06/06/17 09:12; Admin Dose 40 MG; Start 06/06/17 at 09:00 Norepinephrine/ Dextrose (Levophed/D5W) 500 ml @ 0.93 mls/hr TITRATE IV ; Start 06/05/17 at 14:00 Miscellaneous Information ([facility]) This patient badillo... PRN PRN XX WOUND CARE; Start 06/06/17 at 01:30 CARINA LINCOLN 8, 2017 09:32
--- NOTE | 2017-06-06 11:22 | CONS ---
Date/Time of Note Date/Time of Note DATE: 06/06/17 TIME: 11:08 Assessment/Plan Assessment/Plan Chief Complaint/Hosp Course Summary Assessment and Plan: Assessment: Positive FOBT Anemia-2 units of PRBCs ordered to be transfused today PUD vs duodenal ulcer vs lower GI Septic shock with leukocytosis ESRD with HD Hypoxemia/ improved Plan: EGD today Keep npo If EGD negative we will then plan for colonoscopy Sunday Discussed plan with catalina [facility] - risks/benefits/alternatives/indications of procedure and sedation/ anesthesia discussed with patient who states understanding and gives informed consent to proceed. Questions were answered. Son verbalized understanding and agreed with plan Patient seen in collaboration with Chief Complaint/Reason for Visit: Anemia Positive FOBT History of Present Illness: This is an 89-year-old male, past medical history of recent septic shock and hypotension, previous pneumonia,end-stage renal disease on HD, paroxysmal atrial fibrillation, history of CVA, aortic stenosis, sick sinus syndrome s/p pacemaker, high cholesterol and chronic dementia who was brought in from HD center for hypoxia, tachypnea and shortness of breath. Please note history obtained from medical records as patient is non-verbal with history of dementia. GI was consulted for anemia and positive FOBT which was noted on workup. Currently hemoglobin is 7.0 and hematocrit 22.4, platelets 169, PT 14.4 and INR 1.12. 2 units of PRBCs have been ordered and will be transfused today. During examination patient did not appear to be in any discomfort with abdominal palpation, bowel sounds normoactive, gastric lavage negative for bleeding, patient was then turned to the left side rectal examination moderate amount of melena noted. With clinical presentation one must rule out duodenal ulcer versus PUD possible lower GI bleed. Plan to keep patient n.p.o. today and to move forward with EGD this evening. Spoke with catalina Baltazar discussed procedure risks and benefits, are at that point verbalized consent for both EGD and possible colonoscopy Sunday if EGD negative. We will continue to monitor H/ H and transfuse as needed. Past Medical History: Septic shock History of pneumonia End-stage renal disease on HD Proximal atrial fibrillation CVA Aortic stenosis Sick sinus syndrome status post pacemaker High cholesterol Dysphasia with PEG placement Dementia Allergies: No known allergies PHYSICAL EXAMINATION: GENERAL: Non-verbal, chronically ill appearing SKIN: No lesions, no stigmata chronic liver disease, g-tube in place. LYMPHATIC: No palpable lymphadenopathy. HEAD: Normocephalic, atraumatic, no tenderness. EYES: Pupils equal reactive to light and accommodation, full extraocular movements, sclera clear, non-icteric, no discharge. EARS/NOSE AND THROAT: Ears normal, nose normal, oropharynx normal, oral membranes well hydrated without lesions. NECK: Supple, no masses, thyroid normal, CHEST: Inspection within normal limits. CARDIOVASCULAR: Heart: Regular rate and rhythm, no murmurs, gallops or rubs. Peripheral pulses present within normal limits, no cyanosis, clubbing or edemas. No pulsatile abdominal mass RESPIRATORY: Lungs diminished GASTROINTESTINAL AND LIVER: Abdomen: Soft, non tenderness, non-distended, no hernias, no masses, no organomegaly, no ascites, no guarding, no rebound tenderness, normoactive bowel sounds. Rectal: OB positive GENITOURINARY: Male genitalia within normal limits. EXTREMITIES: No cyanosis, clubbing or edema. Problems: Consultation Date/Type/Reason Admit Date/Time Jun 05, 2017 at 16:11 Date of Consultation: Jun 06, 2017 Type of Consultation: GI Reason for Consultation Anemia Positive FOBT Subjective hx not possible: pt non-verbal Past Surgical History Past Surgical Hx: other (PEG placement) Social History Smoking Status: Never smoker Exam/Review of Systems Vital Signs Vitals Vital Signs Date Time Temp Pulse Resp B/P Pulse Ox O2 Delivery O2 Flow Rate FiO2 06/06/17 08:00 101 06/06/17 08:00 Nasal Cannula 2.0 06/06/17 05:45 18 125/37 100 06/06/17 04:00 98.9 06/06/17 01:53 35 Intake and Output 06/05/17 06/05/17 06/06/17 15:00 23:00 07:00 Intake Total 1300 ml 500 ml Output Total 0 ml Balance 1300 ml 500 ml Results Result Diagram: 06/06/17 0809 06/06/17 0500 Results 24 hrs Laboratory Tests Test 06/05/17 11:24 06/05/17 11:33 06/05/17 11:34 06/05/17 11:35 Free Thyroxine 2.61 H White Blood Count 16.7 #H Red Blood Count 2.85 L Hemoglobin 8.6 L Hematocrit 27.1 L Mean Corpuscular Volume 95.1 Mean Corpuscular Hemoglobin 30.2 Mean Corpuscular Hemoglobin Concent 31.7 L Red Cell Distribution Width 17.8 H Platelet Count 198 # Mean Platelet Volume 11.1 H Neutrophils % 71.2 Lymphocytes % 15.2 Monocytes % 7.7 Eosinophils % 4.6 Basophils % 0.4 Nucleated Red Blood Cells % 0.0 Neutrophils # 11.9 H Lymphocytes # 2.5 Monocytes # 1.3 H Eosinophils # 0.8 H Basophils # 0.1 Nucleated Red Blood Cells # 0.0 Sodium Level 140 Potassium Level 4.6 Chloride Level 104 Carbon Dioxide Level 26 Anion Gap 15 Blood Urea Nitrogen 60 H Creatinine 4.06 H Glucose Level 147 Calcium Level 7.6 L Total Bilirubin 0.1 L Direct Bilirubin 0.00 Indirect Bilirubin 0.1 Aspartate Amino Transf (AST/SGOT) 51 H Alanine Aminotransferase (ALT/SGPT) 34 Alkaline Phosphatase 157 H Troponin I 0.226 *H B-Type Natriuretic Peptide 85194 H Total Protein 5.5 L Albumin 2.0 L Globulin 3.50 H Albumin/Globulin Ratio 0.57 Lactic Acid Level 5.8 *H Stool Occult Blood POSITIVE Test 06/05/17 13:45 06/05/17 14:25 06/05/17 16:25 06/05/17 22:00 Urine Color YEIM Urine Clarity CLEAR Urine pH 7.0 Urine Specific [place] 1.030 Urine Ketones NEGATIVE Urine Nitrite NEGATIVE Urine Bilirubin NEGATIVE Urine Urobilinogen NEGATIVE Urine Leukocyte Esterase NEGATIVE Urine Microscopic RBC 6 H Urine Microscopic WBC 27 H Urine Bacteria FEW A Urine Mucus MODERATE Urine Hemoglobin NEGATIVE Urine Glucose 3+ H Urine Total Protein 3+ H Lactic Acid Level 2.0 1.6 4.7 *H Prothrombin Time 14.4 H Prothrombin Time Ratio 1.1 INR International Normalized Ratio 1.12 Activated Partial Thromboplast Time 59.2 H Creatine Kinase 78 74 Creatine Kinase Index 5.8 5.3 Creatinine Kinase MB (Mass) 4.56 H 3.90 H Troponin I 0.211 *H 0.223 *H Test 06/05/17 22:45 06/06/17 05:00 06/06/17 08:04 06/06/17 08:09 Blood Gas Specimen Source Blood arterial Arterial Blood Date Drawn 06/05/2017 10:50:57 PM Arterial Blood pH (Temp corrected) 7.423 Arterial Blood pCO2 (Temp correct) 38.7 Arterial Blood pO2 (Temp corrected) 97.2 H Arterial Blood HCO3 24.7 Arterial Blood Base Excess 0.3 Arterial Blood Oxygen Saturation 96.8 Niall Test ACCEPTAB Arterial Blood Gas Puncture Site Left Radial Arterial Blood Carboxyhemoglobin 0.3 Arterial Blood Methemoglobin 0.5 Blood Gas A-a O2 Differential 107.4 H Oxyhemoglobin Percent 96.0 Total Hemoglobin 7.6 L Blood Gas Temperature 37.0 Blood Gas Respiration Rate 14.0 Blood Gas Actual Respiration Rate 29 Blood Gas Modality MASK - BIPAP FiO2 35.0 Blood Gas IPAP/EPAP Ratio 15/5 Blood Gas Notified Whom Blood Gas Notified Time 06/05/2017 11:01:47 PM White Blood Count 15.4 H Red Blood Count 2.42 L Hemoglobin 7.1 L 7.0 L Hematocrit 22.8 L 22.4 L Mean Corpuscular Volume 94.2 Mean Corpuscular Hemoglobin 29.3 Mean Corpuscular Hemoglobin Concent 31.1 L Red Cell Distribution Width 18.2 H Platelet Count 169 Mean Platelet Volume 10.7 H Neutrophils % 80.8 H Lymphocytes % 6.5 L Monocytes % 10.5 Eosinophils % 1.4 Basophils % 0.3 Nucleated Red Blood Cells % 0.0 Neutrophils # 12.4 H Lymphocytes # 1.0 Monocytes # 1.6 H Eosinophils # 0.2 Basophils # 0.0 Nucleated Red Blood Cells # 0.0 Sodium Level 140 Potassium Level 4.7 Chloride Level 107 Carbon Dioxide Level 28 Anion Gap 10 # Blood Urea Nitrogen 75 H Creatinine 4.48 H Glucose Level 133 Hemoglobin A1c 5.1 Calcium Level 7.1 L Phosphorus Level 2.8 Magnesium Level 2.1 Triglycerides Level 88 Cholesterol Level < 50 L LDL Cholesterol, Calculated HDL Cholesterol 13 L Cholesterol/HDL Ratio Thyroid Stimulating Hormone (TSH) 8.360 H Lactic Acid Level 1.2 Medications Medications Current Medications Norepinephrine (Levophed) 250 ml @ 1.875 mls/ hr TITRATE IV Last administered on 06/06/17t 07:30; Admin Dose 28.125 MLS/HR; Start 06/05/17 at 12:30 Ondansetron HCl (Zofran Inj) 4 mg Q6H PRN IV NAUSEA AND/OR VOMITING; Start 06/05/17 at 14:00 Acetaminophen (Tylenol Tab) 650 mg Q6H PRN PO PAIN LEVEL 1-3 OR FEVER Last administered on 06/05/17 23:09; Admin Dose 650 MG; Start 06/05/17 at 14:00 Acetaminophen/ Hydrocodone Bitart ([place] (5/325)) 1 tab Q6H PRN PO MODERATE PAIN LEVEL 4-6; Start 06/05/17 at 14:00 Hydromorphone HCl (Dilaudid) 0.5 mg Q6H PRN IV SEVERE PAIN LEVEL 7-10 Last administered on 06/05/17 22:20; Admin Dose 0.5 MG; Start 06/05/17 at 15:00 Docusate Sodium (Colace) 100 mg Q12H PRN PO CONSTIPATION; Start 06/05/17 at 14: 00 Magnesium Hydroxide (Milk Of Mag) 30 ml DAILY PRN PO CONSTIPATION; Start at 14:00 Sodium Biphosphate/ Sodium Phosphate 133 ml 133 ml DAILY PRN [place] CONSTIPATION; Start 06/05/17 at 14:00 Sodium Chloride (1/2 NS) 1,000 ml @ 75 mls/hr [id number] IV Last administered on 06/05/17 23:10; Admin Dose 75 MLS/HR; Start 06/05/17 at 13:38 Lorazepam 0.5 mg 0.5 mg Q6H PRN PO ANXIETY; Start 06/05/17 at 14:00 Piperacillin Sod/ Tazobactam Sod (Zosyn 2.25gm/ 50ml (Pmx)) 50 ml @ 100 mls/hr Q8 IVPB Last administered on 06/06/17 05:20; Admin Dose 100 MLS/HR; Start 06/05/17 at 17:00 Vancomycin HCl (Vanco Iv Per Pharmacy) VANCOMYCIN PER PHARMACY NOTE XX ; Start 06/05/17 at 14:00 Hydralazine HCl (Apresoline) 10 mg Q6H PRN IV ELEVATED BLOOD PRESSURE; Start 06/05/17 at 14:00 Nitroglycerin (Nitroglycerin (Sl Tab) 0.4 Mg) 1 tab Q5M PRN SL ANGINA; Start 06/05/17 at 14:00 Famotidine (Pepcid) 10 mg Q24H PO Last administered on 06/05/17 23:09; Admin Dose 10 MG; Start 06/05/17 at 21:00 Folic Acid (Folic Acid) 1 mg DAILY PO Last administered on 06/06/17 09:12; Admin Dose 1 MG; Start 06/06/17 at 09:00 Megestrol Acetate 40 mg 40 mg DAILY PO Last administered on 06/06/17 09:12; Admin Dose 40 MG; Start 06/06/17 at 09:00 Norepinephrine/ Dextrose (Levophed/D5W) 500 ml @ 0.93 mls/hr TITRATE IV ; Start 06/05/17 at 14:00 Miscellaneous Information (Pending [facility] Order For Wound Care) This patient badillo... PRN PRN XX WOUND CARE; Start 06/06/17 at 01:30 Miscellaneous Information (*Rx Drug Level Order Reminder*) RANDOM VANCOMYCIN LEVEL 1... ONCE ONCE XX ; Start 06/07/17 at 05:00; Stop 06/07/17 at 05:01 DAISY ANTONIO Jun 06, 2017 11:18
--- NOTE | 2017-06-06 11:28 | CONS ---
Date/Time of Note Date/Time of Note DATE: 06/06/17 TIME: 11:14 Consultation Date/Type/Reason Admit Date/Time Jun 05, 2017 at 16:11 Type of Consultation: Palliative care Hx of Present Illness First is also voice for the family background was addressed with him the understanding if he speaks other family members also appear their understanding fears hopes to address acceptable quality of life support patient to go back to patient's status CODE STATUS will be changed to DO NOT RESUSCITATE and will be changed to comfort measures in the event that he deteriorates hemodynamically or unable to oxygenate. Long discussion with the son once again who is a primary decision maker for patient's family. Participants in the conversation was only son who is communicating information to other family members acceptable quality of life with family members for patient is to return to fpc unit environment. Address cultural differences which was obvious that spiritually cultural he wanted to continue with this level of care. We addressed all caregiver concerns his estimated prognosis is extremely poor 3 months prognosis is extremely poor PPS 10%. There are no pain and symptom management issues at this time there are no other ethical or legal concerns CODE STATUS will be changed to DNR. Past Surgical History Past Surgical Hx: other Social History Smoking Status: Never smoker Exam/Review of Systems Vital Signs Vitals Vital Signs Date Time Temp Pulse Resp B/P Pulse Ox O2 Delivery O2 Flow Rate FiO2 06/06/17 08:00 101 06/06/17 08:00 Nasal Cannula 2.0 06/06/17 05:45 18 125/37 100 06/06/17 04:00 98.9 06/06/17 01:53 35 Intake and Output 06/05/17 06/05/17 06/06/17 15:00 23:00 07:00 Intake Total 1300 ml 500 ml Output Total 0 ml Balance 1300 ml 500 ml Exam Constitutional: other (Noncommunicative) Eyes: EOMI, PERRL, nl conjunctiva, nl lids, nl sclera Respiratory: congested cough, crackles/rales, diminished breath sounds Cardiovascular: other (Difficulty here heart sounds S1-S2 cannot assess with the patient has S3-S4 murmur grade 2 systolic suggestion across the entire precordium.) Extremities: normal pulses Neurological: other (, Cannot address cranial nerves oculocephalics grossly intact) Results Result Diagram: 06/06/17 0809 06/06/17 0500 Results 24 hrs Laboratory Tests Test 06/05/17 11:24 06/05/17 11:33 06/05/17 11:34 06/05/17 11:35 Free Thyroxine 2.61 H White Blood Count 16.7 #H Red Blood Count 2.85 L Hemoglobin 8.6 L Hematocrit 27.1 L Mean Corpuscular Volume 95.1 Mean Corpuscular Hemoglobin 30.2 Mean Corpuscular Hemoglobin Concent 31.7 L Red Cell Distribution Width 17.8 H Platelet Count 198 # Mean Platelet Volume 11.1 H Neutrophils % 71.2 Lymphocytes % 15.2 Monocytes % 7.7 Eosinophils % 4.6 Basophils % 0.4 Nucleated Red Blood Cells % 0.0 Neutrophils # 11.9 H Lymphocytes # 2.5 Monocytes # 1.3 H Eosinophils # 0.8 H Basophils # 0.1 Nucleated Red Blood Cells # 0.0 Sodium Level 140 Potassium Level 4.6 Chloride Level 104 Carbon Dioxide Level 26 Anion Gap 15 Blood Urea Nitrogen 60 H Creatinine 4.06 H Glucose Level 147 Calcium Level 7.6 L Total Bilirubin 0.1 L Direct Bilirubin 0.00 Indirect Bilirubin 0.1 Aspartate Amino Transf (AST/SGOT) 51 H Alanine Aminotransferase (ALT/SGPT) 34 Alkaline Phosphatase 157 H Troponin I 0.226 *H B-Type Natriuretic Peptide 58424 H Total Protein 5.5 L Albumin 2.0 L Globulin 3.50 H Albumin/Globulin Ratio 0.57 Lactic Acid Level 5.8 *H Stool Occult Blood POSITIVE Test 06/05/17 13:45 06/05/17 14:25 06/05/17 16:25 06/05/17 22:00 Urine Color YEMI Urine Clarity CLEAR Urine pH 7.0 Urine Specific [place] 1.030 Urine Ketones NEGATIVE Urine Nitrite NEGATIVE Urine Bilirubin NEGATIVE Urine Urobilinogen NEGATIVE Urine Leukocyte Esterase NEGATIVE Urine Microscopic RBC 6 H Urine Microscopic WBC 27 H Urine Bacteria FEW A Urine Mucus MODERATE Urine Hemoglobin NEGATIVE Urine Glucose 3+ H Urine Total Protein 3+ H Lactic Acid Level 2.0 1.6 4.7 *H Prothrombin Time 14.4 H Prothrombin Time Ratio 1.1 INR International Normalized Ratio 1.12 Activated Partial Thromboplast Time 59.2 H Creatine Kinase 78 74 Creatine Kinase Index 5.8 5.3 Creatinine Kinase MB (Mass) 4.56 H 3.90 H Troponin I 0.211 *H 0.223 *H Test 06/05/17 22:45 06/06/17 05:00 06/06/17 08:04 06/06/17 08:09 Blood Gas Specimen Source Blood arterial Arterial Blood Date Drawn 06/05/2017 10:50:57 PM Arterial Blood pH (Temp corrected) 7.423 Arterial Blood pCO2 (Temp correct) 38.7 Arterial Blood pO2 (Temp corrected) 97.2 H Arterial Blood HCO3 24.7 Arterial Blood Base Excess 0.3 Arterial Blood Oxygen Saturation 96.8 Niall Test ACCEPTAB Arterial Blood Gas Puncture Site Left Radial Arterial Blood Carboxyhemoglobin 0.3 Arterial Blood Methemoglobin 0.5 Blood Gas A-a O2 Differential 107.4 H Oxyhemoglobin Percent 96.0 Total Hemoglobin 7.6 L Blood Gas Temperature 37.0 Blood Gas Respiration Rate 14.0 Blood Gas Actual Respiration Rate 29 Blood Gas Modality MASK - BIPAP FiO2 35.0 Blood Gas IPAP/EPAP Ratio 15/5 Blood Gas Notified Whom MH Blood Gas Notified Time 06/05/2017 11:01:47 PM White Blood Count 15.4 H Red Blood Count 2.42 L Hemoglobin 7.1 L 7.0 L Hematocrit 22.8 L 22.4 L Mean Corpuscular Volume 94.2 Mean Corpuscular Hemoglobin 29.3 Mean Corpuscular Hemoglobin Concent 31.1 L Red Cell Distribution Width 18.2 H Platelet Count 169 Mean Platelet Volume 10.7 H Neutrophils % 80.8 H Lymphocytes % 6.5 L Monocytes % 10.5 Eosinophils % 1.4 Basophils % 0.3 Nucleated Red Blood Cells % 0.0 Neutrophils # 12.4 H Lymphocytes # 1.0 Monocytes # 1.6 H Eosinophils # 0.2 Basophils # 0.0 Nucleated Red Blood Cells # 0.0 Sodium Level 140 Potassium Level 4.7 Chloride Level 107 Carbon Dioxide Level 28 Anion Gap 10 # Blood Urea Nitrogen 75 H Creatinine 4.48 H Glucose Level 133 Hemoglobin A1c 5.1 Calcium Level 7.1 L Phosphorus Level 2.8 Magnesium Level 2.1 Triglycerides Level 88 Cholesterol Level < 50 L LDL Cholesterol, Calculated HDL Cholesterol 13 L Cholesterol/HDL Ratio Thyroid Stimulating Hormone (TSH) 8.360 H Lactic Acid Level 1.2 Medications Medications Current Medications Norepinephrine (Levophed) 250 ml @ 1.875 mls/ hr TITRATE IV Last administered on 06/06/17t 07:30; Admin Dose 28.125 MLS/HR; Start 06/05/17 at 12:30 Ondansetron HCl (Zofran Inj) 4 mg Q6H PRN IV NAUSEA AND/OR VOMITING; Start 06/05/17 at 14:00 Acetaminophen (Tylenol Tab) 650 mg Q6H PRN PO PAIN LEVEL 1-3 OR FEVER Last administered on 06/05/17 23:09; Admin Dose 650 MG; Start 06/05/17 at 14:00 Acetaminophen/ Hydrocodone Bitart ([place] (5/325)) 1 tab Q6H PRN PO MODERATE PAIN LEVEL 4-6; Start 06/05/17 at 14:00 Hydromorphone HCl (Dilaudid) 0.5 mg Q6H PRN IV SEVERE PAIN LEVEL 7-10 Last administered on 06/05/17 22:20; Admin Dose 0.5 MG; Start 06/05/17 at 15:00 Docusate Sodium (Colace) 100 mg Q12H PRN PO CONSTIPATION; Start 06/05/17 at 14: 00 Magnesium Hydroxide (Milk Of Mag) 30 ml DAILY PRN PO CONSTIPATION; Start at 14:00 Sodium Biphosphate/ Sodium Phosphate 133 ml 133 ml DAILY PRN IN CONSTIPATION; Start 06/05/17 at 14:00 Sodium Chloride (1/2 NS) 1,000 ml @ 75 mls/hr [id number] IV Last administered on 06/05/17 23:10; Admin Dose 75 MLS/HR; Start 06/05/17 at 13:38 Lorazepam 0.5 mg 0.5 mg Q6H PRN PO ANXIETY; Start 06/05/17 at 14:00 Piperacillin Sod/ Tazobactam Sod (Zosyn 2.25gm/ 50ml (Pmx)) 50 ml @ 100 mls/hr Q8 IVPB Last administered on 06/06/17 05:20; Admin Dose 100 MLS/HR; Start 06/05/17 at 17:00 Vancomycin HCl (Vanco Iv Per Pharmacy) VANCOMYCIN PER PHARMACY NOTE XX ; Start 06/05/17 at 14:00 Hydralazine HCl (Apresoline) 10 mg Q6H PRN IV ELEVATED BLOOD PRESSURE; Start 06/05/17 at 14:00 Nitroglycerin (Nitroglycerin (Sl Tab) 0.4 Mg) 1 tab Q5M PRN SL ANGINA; Start 06/05/17 at 14:00 Famotidine (Pepcid) 10 mg Q24H PO Last administered on 06/05/17 23:09; Admin Dose 10 MG; Start 06/05/17 at 21:00 Folic Acid (Folic Acid) 1 mg DAILY PO Last administered on 06/06/17 09:12; Admin Dose 1 MG; Start 06/06/17 at 09:00 Megestrol Acetate 40 mg 40 mg DAILY PO Last administered on 06/06/17 09:12; Admin Dose 40 MG; Start 06/06/17 at 09:00 Norepinephrine/ Dextrose (Levophed/D5W) 500 ml @ 0.93 mls/hr TITRATE IV ; Start 06/05/17 at 14:00 Miscellaneous Information (Pending [facility] Order For Wound Care) This patient badillo... PRN PRN XX WOUND CARE; Start 06/06/17 at 01:30 Miscellaneous Information (*Rx Drug Level Order Reminder*) RANDOM VANCOMYCIN LEVEL 1... ONCE ONCE XX ; Start 06/07/17 at 05:00; Stop 06/07/17 at 05:01 KAREN ORDONEZ Jun 06, 2017 11:25
--- NOTE | 2017-06-06 12:02 | CONS ---
Date/Time of Note Date/Time of Note DATE: 06/06/17 TIME: 11:54 Assessment/Plan Assessment/Plan Chief Complaint/Hosp Course - ESRD ON HEMODIALYSIS - SEPTIC SHOCK - ANEMIA - PNEUMONIA - CAD / CHF - HYPOTENSION - DM - LOW ALBUMIN PLAN: RECENTLY DISCHARGED FROM A LONG HOSPITAL STAY HAD CMS + RESPIRATORY DIFFICULTIES & SOB ON OUT PATIENT DIALYSIS AT THIS POINT IN ICU ON IV PRESSORS Discussion with the son on previous admission regarding comfort care has not been successful Poor PO intake with very low Albumin Attempt was made to start him on Intradialytic TPN which the patient was allergic to & developed a generalized rash At this point will continue with Hemodynamic support Broad spectrum antibiotics Transfuse PRBC today No Urgent need for HD today Will plan for HD in AM if can tolerates it Will D/W son again regarding terminal carman plan THANK YOU [employer] MUCH Problems: Consultation Date/Type/Reason Admit Date/Time Jun 05, 2017 at 16:11 Date of Consultation: Jun 06, 2017 Type of Consultation: NEPHROLOGY Reason for Consultation ESRD HEMODIALYSIS DEPENDENT Subjective hx not possible: pt non-verbal, pt critical status Constitutional: disoriented, poor po, requiring IVF, requiring O2 Eyes: no complaints ENT: no complaints Respiratory: wheezing Cardiovascular: no complaints Gastrointestinal: no complaints Past Medical History Medical History: congestive heart failure, coronary artery disease, renal disease Past Surgical History Past Surgical Hx: other Family History Significant Family History: no pertinent family hx Social History Alcohol Use: none Smoking Status: Never smoker Drug Use: none Exam/Review of Systems Vital Signs Vitals Vital Signs Date Time Temp Pulse Resp B/P Pulse Ox O2 Delivery O2 Flow Rate FiO2 06/06/17 11:00 104 17 133/42 100 Nasal Cannula 06/06/17 08:00 97.9 06/06/17 08:00 2.0 06/06/17 01:53 35 Intake and Output 06/05/17 06/05/17 06/06/17 15:00 23:00 07:00 Intake Total 1300 ml 500 ml Output Total 0 ml Balance 1300 ml 500 ml Exam Constitutional: non-verbal Psych: confusion Eyes: nl conjunctiva Neck: supple Respiratory: crackles/rales Cardiovascular: edema, systolic murmur Gastrointestinal: soft Results Result Diagram: 06/06/17 0809 06/06/17 0500 Results 24 hrs Laboratory Tests Test 06/05/17 13:45 06/05/17 14:25 06/05/17 16:25 06/05/17 22:00 Urine Color YEMI Urine Clarity CLEAR Urine pH 7.0 Urine Specific [place] 1.030 Urine Ketones NEGATIVE Urine Nitrite NEGATIVE Urine Bilirubin NEGATIVE Urine Urobilinogen NEGATIVE Urine Leukocyte Esterase NEGATIVE Urine Microscopic RBC 6 H Urine Microscopic WBC 27 H Urine Bacteria FEW A Urine Mucus MODERATE Urine Hemoglobin NEGATIVE Urine Glucose 3+ H Urine Total Protein 3+ H Lactic Acid Level 2.0 1.6 4.7 *H Prothrombin Time 14.4 H Prothrombin Time Ratio 1.1 INR International Normalized Ratio 1.12 Activated Partial Thromboplast Time 59.2 H Creatine Kinase 78 74 Creatine Kinase Index 5.8 5.3 Creatinine Kinase MB (Mass) 4.56 H 3.90 H Troponin I 0.211 *H 0.223 *H Test 06/05/17 22:45 06/06/17 05:00 06/06/17 08:04 06/06/17 08:09 Blood Gas Specimen Source Blood arterial Arterial Blood Date Drawn 06/05/2017 10:50:57 PM Arterial Blood pH (Temp corrected) 7.423 Arterial Blood pCO2 (Temp correct) 38.7 Arterial Blood pO2 (Temp corrected) 97.2 H Arterial Blood HCO3 24.7 Arterial Blood Base Excess 0.3 Arterial Blood Oxygen Saturation 96.8 Niall Test ACCEPTAB Arterial Blood Gas Puncture Site Left Radial Arterial Blood Carboxyhemoglobin 0.3 Arterial Blood Methemoglobin 0.5 Blood Gas A-a O2 Differential 107.4 H Oxyhemoglobin Percent 96.0 Total Hemoglobin 7.6 L Blood Gas Temperature 37.0 Blood Gas Respiration Rate 14.0 Blood Gas Actual Respiration Rate 29 Blood Gas Modality MASK - BIPAP FiO2 35.0 Blood Gas IPAP/EPAP Ratio 15/5 Blood Gas Notified Whom Blood Gas Notified Time 06/05/2017 11:01:47 PM White Blood Count 15.4 H Red Blood Count 2.42 L Hemoglobin 7.1 L 7.0 L Hematocrit 22.8 L 22.4 L Mean Corpuscular Volume 94.2 Mean Corpuscular Hemoglobin 29.3 Mean Corpuscular Hemoglobin Concent 31.1 L Red Cell Distribution Width 18.2 H Platelet Count 169 Mean Platelet Volume 10.7 H Neutrophils % 80.8 H Lymphocytes % 6.5 L Monocytes % 10.5 Eosinophils % 1.4 Basophils % 0.3 Nucleated Red Blood Cells % 0.0 Neutrophils # 12.4 H Lymphocytes # 1.0 Monocytes # 1.6 H Eosinophils # 0.2 Basophils # 0.0 Nucleated Red Blood Cells # 0.0 Sodium Level 140 Potassium Level 4.7 Chloride Level 107 Carbon Dioxide Level 28 Anion Gap 10 # Blood Urea Nitrogen 75 H Creatinine 4.48 H Glucose Level 133 Hemoglobin A1c 5.1 Calcium Level 7.1 L Phosphorus Level 2.8 Magnesium Level 2.1 Triglycerides Level 88 Cholesterol Level < 50 L LDL Cholesterol, Calculated HDL Cholesterol 13 L Cholesterol/HDL Ratio Thyroid Stimulating Hormone (TSH) 8.360 H Lactic Acid Level 1.2 Medications Medications Current Medications Norepinephrine (Levophed) 250 ml @ 1.875 mls/ hr TITRATE IV Last administered on 06/06/17 07:30; Admin Dose 28.125 MLS/HR; Start 06/05/17 at 12:30 Ondansetron HCl (Zofran Inj) 4 mg Q6H PRN IV NAUSEA AND/OR VOMITING; Start 06/05/17 at 14:00 Acetaminophen (Tylenol Tab) 650 mg Q6H PRN PO PAIN LEVEL 1-3 OR FEVER Last administered on 06/05/17 23:09; Admin Dose 650 MG; Start 06/05/17 at 14:00 Acetaminophen/ Hydrocodone Bitart ([place] (5/325)) 1 tab Q6H PRN PO MODERATE PAIN LEVEL 4-6; Start 06/05/17 at 14:00 Hydromorphone HCl (Dilaudid) 0.5 mg Q6H PRN IV SEVERE PAIN LEVEL 7-10 Last administered on 06/05/17 22:20; Admin Dose 0.5 MG; Start 06/05/17 at 15:00 Docusate Sodium (Colace) 100 mg Q12H PRN PO CONSTIPATION; Start 06/05/17 at 14: 00 Magnesium Hydroxide (Milk Of Mag) 30 ml DAILY PRN PO CONSTIPATION; Start at 14:00 Sodium Biphosphate/ Sodium Phosphate 133 ml 133 ml DAILY PRN [place] CONSTIPATION; Start 06/05/17 at 14:00 Sodium Chloride (1/2 NS) 1,000 ml @ 75 mls/hr [id number] IV Last administered on 06/05/17 23:10; Admin Dose 75 MLS/HR; Start 06/05/17 at 13:38 Lorazepam 0.5 mg 0.5 mg Q6H PRN PO ANXIETY; Start 06/05/17 at 14:00 Piperacillin Sod/ Tazobactam Sod (Zosyn 2.25gm/ 50ml (Pmx)) 50 ml @ 100 mls/hr Q8 IVPB Last administered on 06/06/17 05:20; Admin Dose 100 MLS/HR; Start 06/05/17 at 17:00 Vancomycin HCl (Vanco Iv Per Pharmacy) VANCOMYCIN PER PHARMACY NOTE XX ; Start 06/05/17 at 14:00 Hydralazine HCl (Apresoline) 10 mg Q6H PRN IV ELEVATED BLOOD PRESSURE; Start 06/05/17 at 14:00 Nitroglycerin (Nitroglycerin (Sl Tab) 0.4 Mg) 1 tab Q5M PRN SL ANGINA; Start 06/05/17 at 14:00 Famotidine (Pepcid) 10 mg Q24H PO Last administered on 06/05/17 23:09; Admin Dose 10 MG; Start 06/05/17 at 21:00 Folic Acid (Folic Acid) 1 mg DAILY PO Last administered on 06/06/17 09:12; Admin Dose 1 MG; Start 06/06/17 at 09:00 Megestrol Acetate 40 mg 40 mg DAILY PO Last administered on 06/06/17 09:12; Admin Dose 40 MG; Start 06/06/17 at 09:00 Norepinephrine/ Dextrose (Levophed/D5W) 500 ml @ 0.93 mls/hr TITRATE IV ; Start 06/05/17 at 14:00 Miscellaneous Information (Pending Santyl Order For Wound Care) This patient badillo... PRN PRN XX WOUND CARE; Start 06/06/17 at 01:30 Miscellaneous Information (*Rx Drug Level Order Reminder*) RANDOM VANCOMYCIN LEVEL 1... ONCE ONCE XX ; Start 06/07/17 at 05:00; Stop 06/07/17 at 05:01 DENVER ANTONY MD Jun 06, 2017 12:02
--- NOTE | 2017-06-06 13:46 | PN ---
DATE: 06/06/2017 SUBJECTIVE: No events overnight. The patient is lethargic on Levophed drip, looks comfortable. VITAL SIGNS: T-max 100.5, T-current 97.9, pulse 104, respirations 17, blood pressure 133/42, satura tion 100 on nasal cannula. LABORATORIES: WBC 15.4, hemoglobin and hematocrit 7 and 20.4, platelets 169, neutrophils 80.8. INDWELLINGS: Right chest Perm-A-Cath. MICROBIOLOGY: Blood and urine culture preliminary negative. ANTIMICROBIALS: The patient is on: 1. Zosyn. 2. Vancomycin. DIAGNOSTICS: Chest x-ray on admission revealed air space disease in both lung bases, consistent wit h atelectasis or pneumonia. Moderate bilateral pleural effusions, unchanged. PHYSICAL EXAMINATION: GENERAL: Ill-appearing, elderly man in no distress. HEENT: Head atraumatic, normocephalic. Sclerae anicteric. Buccal mucosa dry. NECK: Supple, trachea midline. CHEST: Rise symmetrical. Breath sounds diminished to bases. HEART: S1, S2. ABDOMEN: Soft. Bowel tones hypoactive. EXTREMITIES: Mottled, cyanotic. ASSESSMENT: 1. Septic shock. 2. Healthcare-associated pneumonia, possibly aspiration type. 3. End-stage renal disease, hemodialysis dependent. 4. Coronary artery disease with a history of permanent pacemaker placement. 5. History of enterococcal bacteremia. 6. Anemia. 7. Encephalopathy. PLAN: The patient remains on pressors, covered with broad spectrum antibiotics. He is being follow ed by multiple consultants. Continue present care, anti-aspiration measures. Overall, prognosis gu arded. The patient is DNR status. Dictated By: JACK CHAN WEIGHT CLERK for ZUHA[facility] CLINE/DARON Conf#: [id number] DID#: [id number]
[2017-06-06] MEDS: ALBUTEROL/IPRATROPIUM (NEB) 3 ML AMP HHN PRN (13:52)
[2017-06-06] MEDS: COLLAGENASE 30 GM TUBE TOP SCH (17:22)
[2017-06-06] MEDS ORDERED: PROPOFOL 20 ML ONE (18:29)
[2017-06-06] MEDS ORDERED: FENTAnyl 50 MCG/ML VIAL ONE (18:29)
--- NOTE | 2017-06-06 19:12 | HPN ---
Date/Time of Note Date/Time of Note DATE: 06/06/17 TIME: 19:12 Interval H&P Admission Note Pt. seen H&P reviewed: No system changes JODI MIN MD Jun 06, 2017 19:12
--- NOTE | 2017-06-06 19:25 | OPPN ---
Date/Time of Note Date/Time of Note DATE: 06/06/17 TIME: 19:12 Proc Note GI Procedure Date 06/06/17 Indication: other Pre-procedure Diagnosis Anemia/GI bleeding Post-procedure Diagnosis Impression: Esophagitis Gastritis. Rule out H pylori. Biopsied GT in place Plan: PPI bid Monitor H/H, transfuse as needed . Procedure Performed: Endoscopy (+ Biosies) Surgeon see signature line Clam Grader none Anesthesia Type: MAC Anesthesiologist: RAPHAEL PERALTA MD Tourniquet Time none EBL none Transfusion required none Biopsy 1: Gastric antrum Grafts/Implants none Tubes/Drains none Complication(s) none Procedure Description Preoperative Diagnosis: After informed consent, with the patient/relatives understanding the procedure, its indications, potential risks and complications, including but not limited to : allergic reaction, bleeding, perforation or infection, and after all pertinent questions were answered to the patients satisfaction, the patient/ relatives signed witnessed informed consent. Following this, premedication was administered slowly IV push under careful cardiovascular and respiratory monitoring with pulse oximetry, automatic blood pressure, and grocery store associate. Once the sedative effect was achieved the patient was place in the left lateral decubitus, the panendoscope was introduced and advanced under visual control. Careful examination of the upper gastrointestinal tract, both on insertion as well as withdrawal of the instrument disclosing the following findings: ESOPHAGUS: the mucosa of the entire esophagus was carefully examined and showed the following findings: There is erythema and edema of the distal esophagus. Otherwise the mucosa appears within normal limits. There is no evidence of varices, neoplasm, or stricture. No Hiatal Hernia identified. STOMACH: Upon entrance to the stomach air was insufflated, the gastric clifton distended normally. The mucosa of the fundus, body and antrum of the stomach was carefully examined both head-on and on retroflexion, and showed the following findings: The is severe erythema, edema of the gastric mucosa. Biopsied to r/o H pylori. GT in place. Otherwise the mucosa appears within normal limits with no abnormalities. There is no evidence of ulcers or neoplasm. PYLORUS: The pylorus was carefully examined and showed the following findings: the pylorus appears patent and within normal limits, with no evidence of gastric outlet obstruction. DUODENUM: The duodenal mucosa was carefully examined in the duodenal bulb as well as the second portion of the duodenum and showed the following findings: the mucosa appears unremarkable with no evidence of duodenitis, ulcer or neoplasm. JODI MIN MD Jun 06, 2017 19:24
[2017-06-06] MEDS: HYDROmorphONE 1 MG/ML SYG IV PRN (20:06)
[2017-06-07] VITALS (68 sets, daily range): BP systolic 85–143; BP diastolic 31–74; PULSE 82–120; RESP 13–26
[2017-06-07] MEDS: PIPER-TAZO 2.25 GM (PMX) 50 ML IVPB SCH ×3 (05:16→21:43)
[2017-06-07] MEDS: SOD CHLORIDE 0.45% 1,000 ML IV SCH (05:16)
[2017-06-07] MEDS: PANTOPRAZOLE 40 MG INJ IV SCH ×2 (05:20→18:59)
[2017-06-07 05:55] LABS: ABNORMAL IP MESSAGE 1; BASOPHIL # 0.1 10^3/ul (0.0-0.1); BASOPHILS % 0.4 % (0.0-2.0); EOSINOPHILS # 0.4 10^3/ul (0.0-0.5); EOSINOPHILS % 3.3 % (0.0-7.0); HEMATOCRIT 31.6 % (42.0-52.0); HEMOGLOBIN 10.3 g/dl (14.0-18.0); LYMPHOCYTES # 0.6 10^3/ul (0.8-2.9); LYMPHOCYTES % 5.1 % (15.0-51.0); MEAN CORPUSCULAR HEMOGLOBIN 29.2 pg (29.0-33.0); MEAN CORPUSCULAR HGB CONC 32.6 g/dl (32.0-37.0); MEAN CORPUSCULAR VOLUME 89.5 fl (82.0-101.0); MEAN PLATELET VOLUME 10.6 fl (7.4-10.4); MONOCYTE # 1.2 10^3/ul (0.3-0.9); MONOCYTES % 10.3 % (0.0-11.0); NEUTROPHIL # 9.1 10^3/ul (1.6-7.5); NEUTROPHILS % 80.5 % (39.0-77.0); PLATELET COUNT 146 10^3/UL (140-415); POSITIVE DIFF @See below; RED BLOOD COUNT 3.53 10^6/ul (4.70-6.10); RED CELL DISTRIBUTION WIDTH 19.3 % (11.5-14.5); WHITE BLOOD COUNT 11.3 10^3/ul (4.8-10.8)
[2017-06-07 06:44] LABS: CALCIUM 6.9 mg/dl (8.4-10.2); CREATININE 4.67 mg/dl (0.61-1.24); POTASSIUM 4.6 mmol/L (3.5-5.1)
[2017-06-07] MEDS ORDERED: HEPARIN 1000 UNITS/ML 10 ML INJ CATHETER SCH (07:00)
[2017-06-07] MEDS: CALCIUM ACETATE 667 MG CAP PO SCH ×3 (07:35→19:00)
--- NOTE | 2017-06-07 07:56 | CONS ---
Date/Time of Note Date/Time of Note DATE: 06/07/17 TIME: 07:53 Consult Date/Type/Reason Admit Date/Time Jun 05, 2017 at 16:11 Initial Consult Date 06/06/17 Type of Consultation: cardiology Subjective cardiology follow up note: S: D/W staff in ICU and rhythm was reviewed. pt remains in NSR, demand pacing pt remains noverbal. he is still on levophed drip in ICU. ON HD now O: General: elderly man in no acute distress HEENT: NC/AT. pupils are equal. round. NECK: NO JVD. no stridor. chest: s/p right sided HD access CV: RRR. systolic murmur; no gallop or rubs. PULM: no wheezing . but mild rhonchi. GI: SOFT, NT, ND, no rebound or guarding Extremity: + B/L LE edema. no clubbing. neuro: opens his eyes but does not verbalize. . Psych: calm and pleasant rectal: deferred : normal male Objective Vital Signs Date Time Temp Pulse Resp B/P Pulse Ox O2 Delivery O2 Flow Rate FiO2 06/07/17 07:33 100 2.0 27 06/07/17 05:30 106 13 94/41 06/07/17 04:00 98.9 06/06/17 20:00 Nasal Cannula Intake and Output 06/06/17 06/06/17 06/07/17 15:00 23:00 07:00 Intake Total 1093.730 ml 0 ml 500 ml Balance 1093.730 ml 0 ml 500 ml Results/Medications Result Diagram: 06/07/17 0515 06/07/17 0515 Results 24 hrs Laboratory Tests Test 06/06/17 08:04 06/06/17 08:09 06/06/17 13:52 06/06/17 23:12 Lactic Acid Level 1.2 6.1 *H 1.2 Hemoglobin 7.0 L Hematocrit 22.4 L Test 06/07/17 04:45 06/07/17 05:15 Lab Scanned Report BLOOD TRANSFUSION White Blood Count 11.3 #H Red Blood Count 3.53 #L Hemoglobin 10.3 #L Hematocrit 31.6 #L Mean Corpuscular Volume 89.5 Mean Corpuscular Hemoglobin 29.2 Mean Corpuscular Hemoglobin Concent 32.6 Red Cell Distribution Width 19.3 H Platelet Count 146 Mean Platelet Volume 10.6 H Neutrophils % 80.5 H Lymphocytes % 5.1 L Monocytes % 10.3 Eosinophils % 3.3 Basophils % 0.4 Nucleated Red Blood Cells % 0.0 Neutrophils # 9.1 H Lymphocytes # 0.6 L Monocytes # 1.2 H Eosinophils # 0.4 Basophils # 0.1 Nucleated Red Blood Cells # 0.0 Sodium Level 138 Potassium Level 4.6 Chloride Level 107 Carbon Dioxide Level 24 Anion Gap 12 Blood Urea Nitrogen 78 H Creatinine 4.67 H Glucose Level 100 Calcium Level 6.9 L Random Vancomycin Level 21.9 Medications Current Medications Ondansetron HCl (Zofran Inj) 4 mg Q6H PRN IV NAUSEA AND/OR VOMITING Last administered on 06/06/17 20:05; Admin Dose 4 MG; Start 06/05/17 at 14:00 Acetaminophen (Tylenol Tab) 650 mg Q6H PRN PO PAIN LEVEL 1-3 OR FEVER Last administered on 06/05/17 23:09; Admin Dose 650 MG; Start 06/05/17 at 14:00 Acetaminophen/ Hydrocodone Bitart ([place] (5/325)) 1 tab Q6H PRN PO MODERATE PAIN LEVEL 4-6; Start 06/05/17 at 14:00 Hydromorphone HCl (Dilaudid) 0.5 mg Q6H PRN IV SEVERE PAIN LEVEL 7-10 Last administered on 06/06/17 20:06; Admin Dose 0.5 MG; Start 06/05/17 at 15:00 Docusate Sodium (Colace) 100 mg Q12H PRN PO CONSTIPATION; Start 06/05/17 at 14: 00 Magnesium Hydroxide (Milk Of Mag) 30 ml DAILY PRN PO CONSTIPATION; Start at 14:00 Sodium Biphosphate/ Sodium Phosphate 133 ml 133 ml DAILY PRN [place] CONSTIPATION; Start 06/05/17 at 14:00 Sodium Chloride (1/2 NS) 1,000 ml @ 75 mls/hr [id number] IV Last administered on 06/06/17 01:00; Admin Dose 75 MLS/HR; Start 06/05/17 at 13:38 Lorazepam 0.5 mg 0.5 mg Q6H PRN PO ANXIETY; Start 06/05/17 at 14:00 Piperacillin Sod/ Tazobactam Sod (Zosyn 2.25gm/ 50ml (Pmx)) 50 ml @ 100 mls/hr Q8 IVPB Last administered on 06/07/17 05:16; Admin Dose 100 MLS/HR; Start 06/05/17 at 17:00 Vancomycin HCl (Vanco Iv Per Pharmacy) VANCOMYCIN PER PHARMACY NOTE XX ; Start 06/05/17 at 14:00 Hydralazine HCl (Apresoline) 10 mg Q6H PRN IV ELEVATED BLOOD PRESSURE; Start 06/05/17 at 14:00 Nitroglycerin (Nitroglycerin (Sl Tab) 0.4 Mg) 1 tab Q5M PRN SL ANGINA; Start 06/05/17 at 14:00 Folic Acid (Folic Acid) 1 mg DAILY PO Last administered on 06/06/17 09:12; Admin Dose 1 MG; Start 06/06/17 at 09:00 Megestrol Acetate 40 mg 40 mg DAILY PO Last administered on 06/06/17 09:12; Admin Dose 40 MG; Start 06/06/17 at 09:00 Norepinephrine/ Dextrose (Levophed/D5W) 500 ml @ 0.93 mls/hr TITRATE IV Last administered on 06/07/17 00:47; Admin Dose 0.93 MLS/HR; Start 06/05/17 at 14:00 Miscellaneous Information (Pending Santyl Order For Wound Care) This patient badillo... PRN PRN XX WOUND CARE; Start 06/06/17 at 01:30 Collagenase (Santyl) 1 applic DAILY TOP Last administered on 06/06/17 17:22; Admin Dose 1 APPLIC; Start 06/06/17 at 15:30 Pantoprazole (Protonix Iv) 40 mg BID@06,18 IV Last administered on 06/07/17 05 :20; Admin Dose 40 MG; Start 06/07/17 at 06:00 Assessment/Plan Chief Complaint/Hosp Course 1. shock: probably septic 2. P afib: currently in NSR 3. sick sinus syndrome: S/P;PPM 4. hx PPM; normal functioning now 5. ESRD ON HD 6. hypoxemic resp failure: improved now 7. severe dementia 8. severe anemia 9. hx recent bacteremia. 10. mildly abnormal trop due to above ( sepsis, renal failure, etc. doubt AMI ) . Recommendations: We will hold off on aspirin for now given patient's severe anemia. We will continue with ICU care and Levophed drip. Try to wean off the Levophed if able to tolerate it. Hemodialysis will be managed per renal team. Antibiotics are being managed as per internal medicine and ID consultation rec Patient is not able to tolerate any beta-felix. cont amiodarone to try to maintain him in sinus rhythm. Electrolytes will be checked periodically and adjusted accordingly. Oxygen supplement will be given. BiPAP as needed will be given as well. Continue with ICU care as long as the patient requires to be on Levophed drip. CODE STATUS is DNR now Echocardiogram was recently done last month. Thank you for his referral. I will continue to follow along with you. MELVIN BRODERICK MD [facility] Problems: MELVIN BRODERICK MD Jun 07, 2017 07:56
[2017-06-07] MEDS: MEGESTROL 40 MG TAB PO SCH (09:00)
[2017-06-07] MEDS: COLLAGENASE 30 GM TUBE TOP SCH (09:15)
--- NOTE | 2017-06-07 09:16 | CONS ---
Date/Time of Note Date/Time of Note DATE: 06/07/17 TIME: 09:13 Consult Date/Type/Reason Admit Date/Time Jun 05, 2017 at 16:11 Initial Consult Date 06/06/17 Type of Consultation: Pulmonary Subjective Patient remains on vasopressors. Lethargic. DNR status noted. Objective Vital Signs Date Time Temp Pulse Resp B/P Pulse Ox O2 Delivery O2 Flow Rate FiO2 06/07/17 08:00 92 06/07/17 07:33 100 2.0 27 06/07/17 05:30 13 94/41 06/07/17 04:00 98.9 06/06/17 20:00 Nasal Cannula Intake and Output 06/06/17 06/06/17 06/07/17 15:00 23:00 07:00 Intake Total 1093.730 ml 0 ml 500 ml Balance 1093.730 ml 0 ml 500 ml Exam PHYSICAL EXAMINATION: GENERAL: Chronically ill-appearing gentleman on cannula oxygen. VITAL SIGNS: NECK: JVD is elevated. CARDIAC: S1, S2, II/ systolic ejection murmur. CHEST: Diminished air entry bilaterally. ABDOMEN: Soft, nontender. No guarding or rebound. EXTREMITIES: No cyanosis, clubbing, edema. NEUROLOGIC: Generalized weakness. Results/Medications Result Diagram: 06/07/1715 06/07/17 0515 Results 24 hrs Laboratory Tests Test 06/06/17 13:52 06/06/17 23:12 06/07/17 04:45 06/07/17 05:15 Lactic Acid Level 6.1 *H 1.2 Lab Scanned Report BLOOD TRANSFUSION White Blood Count 11.3 #H Red Blood Count 3.53 #L Hemoglobin 10.3 #L Hematocrit 31.6 #L Mean Corpuscular Volume 89.5 Mean Corpuscular Hemoglobin 29.2 Mean Corpuscular Hemoglobin Concent 32.6 Red Cell Distribution Width 19.3 H Platelet Count 146 Mean Platelet Volume 10.6 H Neutrophils % 80.5 H Lymphocytes % 5.1 L Monocytes % 10.3 Eosinophils % 3.3 Basophils % 0.4 Nucleated Red Blood Cells % 0.0 Neutrophils # 9.1 H Lymphocytes # 0.6 L Monocytes # 1.2 H Eosinophils # 0.4 Basophils # 0.1 Nucleated Red Blood Cells # 0.0 Sodium Level 138 Potassium Level 4.6 Chloride Level 107 Carbon Dioxide Level 24 Anion Gap 12 Blood Urea Nitrogen 78 H Creatinine 4.67 H Glucose Level 100 Calcium Level 6.9 L Random Vancomycin Level 21.9 Medications Current Medications Ondansetron HCl (Zofran Inj) 4 mg Q6H PRN IV NAUSEA AND/OR VOMITING Last administered on 06/06/17 20:05; Admin Dose 4 MG; Start 06/05/17 at 14:00 Acetaminophen (Tylenol Tab) 650 mg Q6H PRN PO PAIN LEVEL 1-3 OR FEVER Last administered on 06/05/17 23:09; Admin Dose 650 MG; Start 06/05/17 at 14:00 Acetaminophen/ Hydrocodone Bitart ([place] (5/325)) 1 tab Q6H PRN PO MODERATE PAIN LEVEL 4-6; Start 06/05/17 at 14:00 Hydromorphone HCl (Dilaudid) 0.5 mg Q6H PRN IV SEVERE PAIN LEVEL 7-10 Last administered on 06/06/17 20:06; Admin Dose 0.5 MG; Start 06/05/17 at 15:00 Docusate Sodium (Colace) 100 mg Q12H PRN PO CONSTIPATION; Start 06/05/17 at 14: 00 Magnesium Hydroxide (Milk Of Mag) 30 ml DAILY PRN PO CONSTIPATION; Start at 14:00 Sodium Biphosphate/ Sodium Phosphate 133 ml 133 ml DAILY PRN [place] CONSTIPATION; Start 06/05/17 at 14:00 Sodium Chloride (1/2 NS) 1,000 ml @ 75 mls/hr [id number] IV Last administered on 06/06/17 01:00; Admin Dose 75 MLS/HR; Start 06/05/17 at 13:38 Lorazepam 0.5 mg 0.5 mg Q6H PRN PO ANXIETY; Start 06/05/17 at 14:00 Piperacillin Sod/ Tazobactam Sod (Zosyn 2.25gm/ 50ml (Pmx)) 50 ml @ 100 mls/hr Q8 IVPB Last administered on 06/07/17 05:16; Admin Dose 100 MLS/HR; Start 06/05/17 at 17:00 Vancomycin HCl (Vanco Iv Per Pharmacy) VANCOMYCIN PER PHARMACY NOTE XX ; Start 06/05/17 at 14:00 Hydralazine HCl (Apresoline) 10 mg Q6H PRN IV ELEVATED BLOOD PRESSURE; Start 06/05/17 at 14:00 Nitroglycerin (Nitroglycerin (Sl Tab) 0.4 Mg) 1 tab Q5M PRN SL ANGINA; Start 06/05/17 at 14:00 Folic Acid (Folic Acid) 1 mg DAILY PO Last administered on 06/06/17 09:12; Admin Dose 1 MG; Start 06/06/17 at 09:00 Megestrol Acetate 40 mg 40 mg DAILY PO Last administered on 06/06/17 09:12; Admin Dose 40 MG; Start 06/06/17 at 09:00 Norepinephrine/ Dextrose (Levophed/D5W) 500 ml @ 0.93 mls/hr TITRATE IV Last administered on 06/07/17 00:47; Admin Dose 0.93 MLS/HR; Start 06/05/17 at 14:00 Miscellaneous Information (Pending Santyl Order For Wound Care) This patient badillo... PRN PRN XX WOUND CARE; Start 06/06/17 at 01:30 Collagenase (Santyl) 1 applic DAILY TOP Last administered on 06/06/17 17:22; Admin Dose 1 APPLIC; Start 06/06/17 at 15:30 Pantoprazole (Protonix Iv) 40 mg BID@06,18 IV Last administered on 06/07/17 05 :20; Admin Dose 40 MG; Start 06/07/17 at 06:00 Amiodarone HCl (Cordarone) 200 mg DAILY PO ; Start 06/07/17 at 09:00 Assessment/Plan Chief Complaint/Hosp Course IMPRESSION 1. Hypoxemic respiratory failure, likely secondary to volume overload. 2. Likely underlying pneumonia, possibly health-care associated. 3. Dysphagia. 4. Dementia. 5. End-stage renal failure. 6. Anemia likely secondary to chronic renal disease. 7. Septic shock. RECOMMENDATIONS 1. Continue broad-spectrum antibiotics. 2. Hemodialysis as tolerated. 3. Broad-spectrum antibiotics. 4. Aspiration precautions. 5. Palliative care consult, consider comfort measures as overall prognosis extremely poor. 6. Continue vasopressors. Problems: TIMBO RAMEY MD, [facility] Jun 07, 2017 09:16
--- NOTE | 2017-06-07 09:25 | PN ---
Date/Time of Note Date/Time of Note DATE: 06/07/17 TIME: 09:19 Assessment/Plan VTE Prophylaxis VTE Prophylaxis Intervention: SCD's Lines/Catheters IV Catheter Type (from [facility]): Mid Line Urinary Cath still in place: No Assessment/Plan Chief Complaint/Hosp Course ASSESSMENT AND PLAN: An 89-year-old male coming in with hypotension, tachypnea , tachycardia, hypoxia, after getting partial dialysis performed today, with again septic shock. 1. Septic shock- leukocytosis still present, but slowly trending down. He was recently treated on last admission last month for bacteremia. + tachypnea, as well. He did receive BiPAP initially in the ER on this admission, chest x- ray shows some infiltrates, unclear source of septic shock, possibly secondary to upper respiratory infection. His lactic acid was also elevated, but also trending down now - continue ICU care. - IV fluids, continue pressor support-try to wean down as tolerated - continue broad-spectrum antibiotics. Tylenol p.r.n. pain and fevers. - f/u infectious disease consult, pulm rec's. - Follow up final culture results as well. -Elevated troponins likely secondary to combination of patient's sepsis and renal insufficiency, and less likely [place], follow cardiology recommendations, continue to monitor 2. End-stage renal disease on dialysis-have consulted renal with Dr. Carlyn Leblanc, that is his renal doctor, received short session of dialysis this morning - continue PhosLo, HD per renal recommendations 3. History of anemia of chronic disease- stool occult test is positive. hemoglobin improved to 10.3 after 2 units PRBC given yesterday. EGD performed yesterday as well. -For possible colonoscopy in 24 hours, follow-up final GI recommendations on this 4. History of prior stroke. Continue to monitor for now. 5. History of paroxysmal atrial fibrillation. Continue to monitor heart rate on monitoring. 6. Encephalopathy stable. Continue to monitor for now. 7. History of sick sinus syndrome status post pacemaker placement in the past. Again, continue to monitor on telemetry 8. High cholesterol. Continue statin. 9. Gastrointestinal prophylaxis. H2 felix. 10. Deep venous thrombosis prophylaxis. Avoid all anticoagulants given his positive stool occult test - SCDs. Dispo: Palliative care team on the case, patient is DNR now. Critical care time spent on patient care today equals 45 minutes. Problems: Subjective 24 Hr Interval Summary Free Text/Dictation Patient had short session of hemodialysis this morning. Seen by cardiology team this morning. Still on pressor support. Had EGD yesterday. Received PRBC transfusion yesterday. Family also met with palliative team yesterday. Presently is DNR. Exam/Review of Systems Vital Signs Vitals Vital Signs Date Time Temp Pulse Resp B/P Pulse Ox O2 Delivery O2 Flow Rate FiO2 06/07/17 08:00 92 06/07/17 07:33 100 2.0 27 06/07/17 05:30 13 94/41 06/07/17 04:00 98.9 06/06/17 20:00 Nasal Cannula Intake and Output 06/06/17 06/06/17 06/07/17 15:00 23:00 07:00 Intake Total 1093.730 ml 0 ml 500 ml Balance 1093.730 ml 0 ml 500 ml Exam GENERAL: Patient lying in bed, lethargic HEENT: Unable to fully assess. NECK: Supple. No thyromegaly. LUNGS: Distant breath sounds bilaterally. CARDIOVASCULAR: S1, S2 heard. No murmurs, rubs, or gallops. ABDOMEN: Soft, nontender, nondistended. Normal bowel sounds. No rebound or guarding, PEG MUSCULOSKELETAL: Normal lower extremities bilaterally. NEUROLOGIC: Unable to fully assess because patient is still lethargic. Results Result Diagram: 06/07/1751406/07/17 0515 Results 24 hrs Laboratory Tests Test 06/06/17 13:52 06/06/17 23:12 06/07/17 04:45 06/07/17 05:15 Lactic Acid Level 6.1 *H 1.2 Lab Scanned Report BLOOD TRANSFUSION White Blood Count 11.3 #H Red Blood Count 3.53 #L Hemoglobin 10.3 #L Hematocrit 31.6 #L Mean Corpuscular Volume 89.5 Mean Corpuscular Hemoglobin 29.2 Mean Corpuscular Hemoglobin Concent 32.6 Red Cell Distribution Width 19.3 H Platelet Count 146 Mean Platelet Volume 10.6 H Neutrophils % 80.5 H Lymphocytes % 5.1 L Monocytes % 10.3 Eosinophils % 3.3 Basophils % 0.4 Nucleated Red Blood Cells % 0.0 Neutrophils # 9.1 H Lymphocytes # 0.6 L Monocytes # 1.2 H Eosinophils # 0.4 Basophils # 0.1 Nucleated Red Blood Cells # 0.0 Sodium Level 138 Potassium Level 4.6 Chloride Level 107 Carbon Dioxide Level 24 Anion Gap 12 Blood Urea Nitrogen 78 H Creatinine 4.67 H Glucose Level 100 Calcium Level 6.9 L Random Vancomycin Level 21.9 Medications Medications Current Medications Ondansetron HCl (Zofran Inj) 4 mg Q6H PRN IV NAUSEA AND/OR VOMITING Last administered on 06/06/17 20:05; Admin Dose 4 MG; Start 06/05/17 at 14:00 Acetaminophen (Tylenol Tab) 650 mg Q6H PRN PO PAIN LEVEL 1-3 OR FEVER Last administered on 06/05/17 23:09; Admin Dose 650 MG; Start 06/05/17 at 14:00 Acetaminophen/ Hydrocodone Bitart ([place] (5/325)) 1 tab Q6H PRN PO MODERATE PAIN LEVEL 4-6; Start 06/05/17 at 14:00 Hydromorphone HCl (Dilaudid) 0.5 mg Q6H PRN IV SEVERE PAIN LEVEL 7-10 Last administered on 06/06/17 20:06; Admin Dose 0.5 MG; Start 06/05/17 at 15:00 Docusate Sodium (Colace) 100 mg Q12H PRN PO CONSTIPATION; Start 06/05/17 at 14: 00 Magnesium Hydroxide (Milk Of Mag) 30 ml DAILY PRN PO CONSTIPATION; Start at 14:00 Sodium Biphosphate/ Sodium Phosphate 133 ml 133 ml DAILY PRN [place] CONSTIPATION; Start 06/05/17 at 14:00 Sodium Chloride (1/2 NS) 1,000 ml @ 75 mls/hr [id number] IV Last administered on 06/06/17 01:00; Admin Dose 75 MLS/HR; Start 06/05/17 at 13:38; Status Future Hold Lorazepam 0.5 mg 0.5 mg Q6H PRN PO ANXIETY; Start 06/05/17 at 14:00 Piperacillin Sod/ Tazobactam Sod (Zosyn 2.25gm/ 50ml (Pmx)) 50 ml @ 100 mls/hr Q8 IVPB Last administered on 06/07/17 05:16; Admin Dose 100 MLS/HR; Start 06/05/17 at 17:00 Vancomycin HCl (Vanco Iv Per Pharmacy) VANCOMYCIN PER PHARMACY NOTE XX ; Start 06/05/17 at 14:00 Hydralazine HCl (Apresoline) 10 mg Q6H PRN IV ELEVATED BLOOD PRESSURE; Start 06/05/17 at 14:00 Nitroglycerin (Nitroglycerin (Sl Tab) 0.4 Mg) 1 tab Q5M PRN SL ANGINA; Start 06/05/17 at 14:00 Folic Acid (Folic Acid) 1 mg DAILY PO Last administered on 06/06/17 09:12; Admin Dose 1 MG; Start 06/06/17 at 09:00 Megestrol Acetate 40 mg 40 mg DAILY PO Last administered on 06/06/17 09:12; Admin Dose 40 MG; Start 06/06/17 at 09:00 Norepinephrine/ Dextrose (Levophed/D5W) 500 ml @ 0.93 mls/hr TITRATE IV Last administered on 06/07/17 00:47; Admin Dose 0.93 MLS/HR; Start 06/05/17 at 14:00 Miscellaneous Information (Pending Santyl Order For Wound Care) This patient badillo... PRN PRN XX WOUND CARE; Start 06/06/17 at 01:30 Collagenase (Santyl) 1 applic DAILY TOP Last administered on 06/06/17 17:22; Admin Dose 1 APPLIC; Start 06/06/17 at 15:30 Pantoprazole (Protonix Iv) 40 mg BID@06,18 IV Last administered on 06/07/17 05 :20; Admin Dose 40 MG; Start 06/07/17 at 06:00 Amiodarone HCl (Cordarone) 200 mg DAILY PO ; Start 06/07/17 at 09:00 CARINA LINCOLN Jun 07, 2017 09:25
[2017-06-07 10:18] LABS: AADO2 Arterial 75.4 mmHg (7.0-24.0); Allen Test ACCEPTAB; Arterial COHb 0.3 % (0.0-3.0); Arterial Fraction of Oxyhgb 95.1 % (93.0-99.0); Arterial HCO3 22.5 mmol/L (22.0-26.0); Arterial MetHb 0.3 % (0.0-1.5); Arterial Total Hemglobin 11.8 g/dl (12.0-18.0); MODE NASAL CANNULA
--- NOTE | 2017-06-07 10:27 | RADRPT ---
PROCEDURE: XR Chest. CLINICAL INDICATION: Shortness of breath. TECHNIQUE: Single frontal view. COMPARISON: 06/05/2017. FINDINGS: A tunneled right internal jugular vein dialysis catheter and left-sided dual lead permanent pacemake r remain in satisfactory position. There is cardiomegaly and calcification in the aorta consistent w ith atherosclerosis. There is air space disease at both lung bases consistent with atelectasis or pneumonia, slightly imp roved on the right and unchanged on the left. Moderate bilateral pleural effusions are unchanged. There is no pneumothorax. IMPRESSION: 1. Slightly improved appearance of the right lung base. 2. No other change from the 06/05/2017 chest radiograph. RPTAT: QQ .Luis Cruz MD, MD Date Time Electronically viewed and signed by .Luis Cruz MD, MD on 06/07/2017 10:26 .R/
[2017-06-07] MEDS: AMIODARONE 200 MG TAB PO SCH (11:54)
[2017-06-07] MEDS: FOLIC ACID 1 MG TAB PO SCH (11:54)
--- NOTE | 2017-06-07 14:11 | PN ---
Date/Time of Note Date/Time of Note DATE: 06/07/17 TIME: 14:03 Assessment/Plan VTE Prophylaxis VTE Prophylaxis Intervention: SCD's Lines/Catheters [facility] Mid Line Urinary Cath still in place: No Assessment/Plan Chief Complaint/Hosp Course Summary Assessment and Plan: Assessment: Positive FOBT Anemia-2 units of PRBCs ordered to be transfused today EGD 06/06/17 Impression: Esophagitis Gastritis. Rule out H pylori. Biopsied (likely cause of bleeding) GT in place Plan: Continue PPI bid Monitor H/H, transfuse as needed Colonoscopy not warranted at this time Spoke to Jon Hooper regarding results of EGD and plan not to move forward with colonoscopy Patient seen in collaboration with Subjective: Course reviewed with nursing staff Patient interviewed and examined All labs, imaging and other results reviewed The patient remains weak, family at bedside. No active bleeding, Hgb stable colonoscopy not warranted at this time Will continue to monitor Code status DNR PHYSICAL EXAMINATION: GENERAL: Non-verbal, chronically ill appearing SKIN: No lesions, no stigmata chronic liver disease, g-tube in place. LYMPHATIC: No palpable lymphadenopathy. HEAD: Normocephalic, atraumatic, no tenderness. EYES: Pupils equal reactive to light and accommodation, full extraocular movements, sclera clear, non-icteric, no discharge. EARS/NOSE AND THROAT: Ears normal, nose normal, oropharynx normal, oral membranes well hydrated without lesions. NECK: Supple, no masses, thyroid normal, CHEST: Inspection within normal limits. CARDIOVASCULAR: Heart: irregular RESPIRATORY: Lungs diminished GASTROINTESTINAL AND LIVER: Abdomen: Soft, non tenderness, non-distended, no hernias, no masses, no organomegaly, no ascites, no guarding, no rebound tenderness, normoactive bowel sounds. Rectal: OB positive GENITOURINARY: Male genitalia within normal limits. Problems: Exam/Review of Systems Vital Signs Vitals Vital Signs Date Time Temp Pulse Resp B/P Pulse Ox O2 Delivery O2 Flow Rate FiO2 06/07/17 12:00 111 06/07/17 11:21 100 2.0 27 06/07/17 08:00 19 06/07/17 08:00 Nasal Cannula 06/07/17 05:30 94/41 06/07/17 04:00 98.9 Intake and Output 06/06/17 06/06/1717 15:00 23:00 07:00 Intake Total 1093.730 ml 0 ml 575 ml Balance 1093.730 ml 0 ml 575 ml Results Result Diagram: 06/07/17 0515 06/07/17 0515 Results 24 hrs Laboratory Tests Test 06/06/17 23:12 06/07/17 04:45 06/07/17 05:15 06/07/17 07:00 Lactic Acid Level 1.2 Lab Scanned Report BLOOD TRANSFUSION White Blood Count 11.3 #H Red Blood Count 3.53 #L Hemoglobin 10.3 #L Hematocrit 31.6 #L Mean Corpuscular Volume 89.5 Mean Corpuscular Hemoglobin 29.2 Mean Corpuscular Hemoglobin Concent 32.6 Red Cell Distribution Width 19.3 H Platelet Count 146 Mean Platelet Volume 10.6 H Neutrophils % 80.5 H Lymphocytes % 5.1 L Monocytes % 10.3 Eosinophils % 3.3 Basophils % 0.4 Nucleated Red Blood Cells % 0.0 Neutrophils # 9.1 H Lymphocytes # 0.6 L Monocytes # 1.2 H Eosinophils # 0.4 Basophils # 0.1 Nucleated Red Blood Cells # 0.0 Sodium Level 138 Potassium Level 4.6 Chloride Level 107 Carbon Dioxide Level 24 Anion Gap 12 Blood Urea Nitrogen 78 H Creatinine 4.67 H Glucose Level 100 Calcium Level 6.9 L Random Vancomycin Level 21.9 Blood Gas Specimen Source Blood arterial Arterial Blood Date Drawn 06/07/2017 9:50:41 AM Arterial Blood pH (Temp corrected) 7.446 Arterial Blood pCO2 (Temp correct) 33.4 L Arterial Blood pO2 (Temp corrected) 77.6 L Arterial Blood HCO3 22.5 Arterial Blood Base Excess -1.0 Arterial Blood Oxygen Saturation 95.7 Niall Test ACCEPTAB Arterial Blood Gas Puncture Site Left Radial Arterial Blood Carboxyhemoglobin 0.3 Arterial Blood Methemoglobin 0.3 Blood Gas A-a O2 Differential 75.4 H Oxyhemoglobin Percent 95.1 Total Hemoglobin 11.8 L Blood Gas Temperature 37.0 Blood Gas Modality NASAL CANNULA FiO2 27.0 Blood Gas Notified Whom VALARIED Blood Gas Notified Time 06/07/2017 10:18:12 AM Medications Medications Current Medications Ondansetron HCl (Zofran Inj) 4 mg Q6H PRN IV NAUSEA AND/OR VOMITING Last administered on 06/06/17t 20:05; Admin Dose 4 MG; Start 06/05/17 at 14:00 Acetaminophen (Tylenol Tab) 650 mg Q6H PRN PO PAIN LEVEL 1-3 OR FEVER Last administered on 06/05/17 23:09; Admin Dose 650 MG; Start 06/05/17 at 14:00 Acetaminophen/ Hydrocodone Bitart ([place] (5/325)) 1 tab Q6H PRN PO MODERATE PAIN LEVEL 4-6; Start 06/05/17 at 14:00 Hydromorphone HCl (Dilaudid) 0.5 mg Q6H PRN IV SEVERE PAIN LEVEL 7-10 Last administered on 06/06/17 20:06; Admin Dose 0.5 MG; Start 06/05/17 at 15:00 Docusate Sodium (Colace) 100 mg Q12H PRN PO CONSTIPATION; Start 06/05/17 at 14: 00 Magnesium Hydroxide (Milk Of Mag) 30 ml DAILY PRN PO CONSTIPATION; Start at 14:00 Sodium Biphosphate/ Sodium Phosphate 133 ml [address] CONSTIPATION; Start 06/05/17 at 14:00 Sodium Chloride (1/2 NS) 1,000 ml @ 75 mls/hr [id number] IV Last administered on 06/06/17 01:00; Admin Dose 75 MLS/HR; Start 06/05/17 at 13:38; Status Future Hold Lorazepam 0.5 mg 0.5 mg Q6H PRN PO ANXIETY; Start 06/05/17 at 14:00 Piperacillin Sod/ Tazobactam Sod (Zosyn 2.25gm/ 50ml (Pmx)) 50 ml @ 100 mls/hr Q8 IVPB Last administered on 06/07/17 05:16; Admin Dose 100 MLS/HR; Start 06/05/17 at 17:00 Vancomycin HCl (Vanco Iv Per Pharmacy) VANCOMYCIN PER PHARMACY NOTE XX ; Start 06/05/17 at 14:00 Hydralazine HCl (Apresoline) 10 mg Q6H PRN IV ELEVATED BLOOD PRESSURE; Start 06/05/17 at 14:00 Nitroglycerin (Nitroglycerin (Sl Tab) 0.4 Mg) 1 tab Q5M PRN SL ANGINA; Start 06/05/17 at 14:00 Folic Acid 1 mg 1 mg DAILY PO Last administered on 06/07/17 11:54; Admin Dose 1 MG; Start 06/06/17 at 09:00 Norepinephrine/ Dextrose (Levophed/D5W) 500 ml @ 0.93 mls/hr TITRATE IV Last administered on 06/07/17 00:47; Admin Dose 0.93 MLS/HR; Start 06/05/17 at 14:00 Miscellaneous Information (Pending Santyl Order For Wound Care) This patient badillo... PRN PRN XX WOUND CARE; Start 06/06/17 at 01:30 Collagenase (Santyl) 1 applic DAILY TOP Last administered on 06/07/17 09:15; Admin Dose 1 APPLIC; Start 06/06/17 at 15:30 Pantoprazole (Protonix Iv) 40 mg BID@06,18 IV Last administered on 06/07/17 05 :20; Admin Dose 40 MG; Start 06/07/17 at 06:00 Amiodarone HCl 200 mg 200 mg DAILY PO Last administered on 06/07/17 11:54; Admin Dose 200 MG; Start 06/07/17 at 09:00 Vancomycin HCl (Vancocin) 250 ml @ 125 mls/hr Q96H IVPB ; Start 06/08/17 at 20 :00 DAISY ANTONIO Jun 07, 2017 14:11
[2017-06-08] VITALS (83 sets, daily range): BP systolic 83–138; BP diastolic 29–102; PULSE 71–115; RESP 16–28
[2017-06-08] MEDS: PANTOPRAZOLE 40 MG INJ IV SCH ×2 (05:30→17:25)
[2017-06-08 05:31] LABS: BASOPHIL # 0.1 10^3/ul (0.0-0.1); BASOPHILS % 0.5 % (0.0-2.0); EOSINOPHILS % 9.5 % (0.0-7.0); HEMATOCRIT 28.2 % (42.0-52.0); HEMOGLOBIN 9.4 g/dl (14.0-18.0); LYMPHOCYTES # 0.9 10^3/ul (0.8-2.9); LYMPHOCYTES % 8.6 % (15.0-51.0); MEAN CORPUSCULAR HEMOGLOBIN 30.2 pg (29.0-33.0); MEAN CORPUSCULAR HGB CONC 33.3 g/dl (32.0-37.0); MEAN CORPUSCULAR VOLUME 90.7 fl (82.0-101.0); MEAN PLATELET VOLUME 10.2 fl (7.4-10.4); MONOCYTE # 1.4 10^3/ul (0.3-0.9); MONOCYTES % 14.1 % (0.0-11.0); NEUTROPHIL # 6.7 10^3/ul (1.6-7.5); NEUTROPHILS % 66.7 % (39.0-77.0); PLATELET COUNT 139 10^3/UL (140-415); RED BLOOD COUNT 3.11 10^6/ul (4.70-6.10); RED CELL DISTRIBUTION WIDTH 19.3 % (11.5-14.5)
[2017-06-08] MEDS: PIPER-TAZO 2.25 GM (PMX) 50 ML IVPB SCH ×3 (05:31→22:03)
[2017-06-08 05:40] LABS: CALCIUM 7.1 mg/dl (8.4-10.2); CREATININE 3.73 mg/dl (0.61-1.24); POTASSIUM 4.1 mmol/L (3.5-5.1)
--- NOTE | 2017-06-08 08:05 | RADRPT ---
PROCEDURE: XR Chest. CLINICAL INDICATION: Shortness of breath. TECHNIQUE: Single frontal view. COMPARISON: 06/07/2017. FINDINGS: The tunneled right internal jugular vein dialysis catheter and left-sided dual lead permanent pacema ker remain in satisfactory position. Cardiomegaly and calcification in the thoracic aorta are unchan ged. There is air space disease in the mid and lower lung zones consistent with atelectasis or pneumonia, worse than seen previously. Moderate bilateral pleural effusions are larger. There is no pneumothorax. IMPRESSION: 1. Larger pleural effusions and worse appearance of the lungs. 2. No other change from the 06/07/2017 chest radiograph. RPTAT: QQ .Luis Cruz MD, MD Date Time Electronically viewed and signed by .Luis Cruz MD, MD on 06/08/2017 08:05 .R/
[2017-06-08] MEDS: CALCIUM ACETATE 667 MG CAP PO SCH ×3 (08:10→17:25)
--- NOTE | 2017-06-08 08:55 | PN ---
Date/Time of Note Date/Time of Note DATE: 06/08/17 TIME: 08:52 Assessment/Plan VTE Prophylaxis VTE Prophylaxis Intervention: SCD's Lines/Catheters IV C[facility]ter Type (from [facility]): PICC Line Central line still needed: Yes Urinary Cath still in place: No Assessment/Plan Chief Complaint/Hosp Course ASSESSMENT AND PLAN: An 89-year-old male coming in with hypotension, tachypnea , tachycardia, hypoxia, after getting partial dialysis performed today, with again septic shock. 1. Septic shock- leukocytosis still present, but slowly trending down. He was recently treated on last admission last month for bacteremia. + tachypnea, as well. He did receive BiPAP initially in the ER on this admission, chest x- ray shows some infiltrates, unclear source of septic shock, possibly secondary to upper respiratory infection. His lactic acid was also elevated, but also trending down now - continue ICU care. - IV fluids, continue pressor support-try to wean down as tolerated - continue broad-spectrum antibiotics. Tylenol p.r.n. pain and fevers. - f/u infectious disease consult, pulm rec's. - Follow up final culture results as well. -Elevated troponins likely secondary to combination of patient's sepsis and renal insufficiency, and less likely [place], follow cardiology recommendations, continue to monitor 2. End-stage renal disease on dialysis-have consulted renal with Dr. Carlyn Leblanc, that is his renal doctor, received short session of dialysis yesterday - continue PhosLo, HD per renal recommendations 3. History of anemia of chronic disease- stool occult test is positive. hemoglobin stable after 2 units PRBC given 2 days ago. EGD performed 2 days ago. -Monitor, follow-up GI 4. History of prior stroke. Continue to monitor for now. 5. History of paroxysmal atrial fibrillation. Continue to monitor heart rate on monitoring. 6. Encephalopathy stable. Continue to monitor for now. 7. History of sick sinus syndrome status post pacemaker placement in the past. Again, continue to monitor on telemetry 8. High cholesterol. Continue statin. 9. Gastrointestinal prophylaxis. H2 felix. 10. Deep venous thrombosis prophylaxis. Avoid all anticoagulants given his positive stool occult test - SCDs. Dispo: Palliative care team on the case, patient is DNR. Critical care time spent on patient care today equals 40 minutes. Problems: Subjective 24 Hr Interval Summary Free Text/Dictation Patient still on pressor support, although at a lower dose now. Had short session of dialysis yesterday 1 L taken out. DNR CODE STATUS. Having some black [employer], however family refusing colonoscopy at this time. Exam/Review of Systems Vital Signs Vitals Vital Signs Date Time Temp Pulse Resp B/P Pulse Ox O2 Delivery O2 Flow Rate FiO2 06/08/17 07:00 111 22 117/40 100 Nasal Cannula 2.0 06/08/17 05:29 27 06/08/17 04:00 98.3 Intake and Output 06/07/17 06/07/17 06/08/17 15:00 23:00 07:00 Intake Total 634.2 ml 271.8 ml 234.8 ml Output Total 1500 ml 1000 ml 2 ml Balance -865.8 ml -728.2 ml 232.8 ml Exam GENERAL: Patient lying in bed, lethargic HEENT: Unable to fully assess. NECK: Supple. No thyromegaly. LUNGS: Distant breath sounds bilaterally. CARDIOVASCULAR: S1, S2 heard. No murmurs, rubs, or gallops. ABDOMEN: Soft, nontender, nondistended. Normal bowel sounds. No rebound or guarding, PEG MUSCULOSKELETAL: Normal lower extremities bilaterally. NEUROLOGIC: Unable to fully assess because patient is still lethargic. Results Result Diagram: 06/08/17 0413 06/08/17 0413 Results 24 hrs Laboratory Tests Test 06/08/17 04:13 White Blood Count 10.0 Red Blood Count 3.11 L Hemoglobin 9.4 L Hematocrit 28.2 L Mean Corpuscular Volume 90.7 Mean Corpuscular Hemoglobin 30.2 Mean Corpuscular Hemoglobin Concent 33.3 Red Cell Distribution Width 19.3 H Platelet Count 139 L Mean Platelet Volume 10.2 Neutrophils % 66.7 Lymphocytes % 8.6 L Monocytes % 14.1 H Eosinophils % 9.5 H Basophils % 0.5 Nucleated Red Blood Cells % 0.0 Neutrophils # 6.7 Lymphocytes # 0.9 Monocytes # 1.4 H Eosinophils # 1.0 H Basophils # 0.1 Nucleated Red Blood Cells # 0.0 Sodium Level 140 Potassium Level 4.1 Chloride Level 106 Carbon Dioxide Level 24 Anion Gap 14 Blood Urea Nitrogen 54 H Creatinine 3.73 H Glucose Level 138 Calcium Level 7.1 L Medications Medications Current Medications Ondansetron HCl (Zofran Inj) 4 mg Q6H PRN IV NAUSEA AND/OR VOMITING Last administered on 06/06/17 20:05; Admin Dose 4 MG; Start 06/05/17 at 14:00 Acetaminophen (Tylenol Tab) 650 mg Q6H PRN PO PAIN LEVEL 1-3 OR FEVER Last administered on 06/05/17 23:09; Admin Dose 650 MG; Start 06/05/17 at 14:00 Acetaminophen/ Hydrocodone Bitart ([place] (5/325)) 1 tab Q6H PRN PO MODERATE PAIN LEVEL 4-6; Start 06/05/17 at 14:00 Hydromorphone HCl (Dilaudid) 0.5 mg Q6H PRN IV SEVERE PAIN LEVEL 7-10 Last administered on 06/06/17 20:06; Admin Dose 0.5 MG; Start 06/05/17 at 15:00 Docusate Sodium (Colace) 100 mg Q12H PRN PO CONSTIPATION; Start 06/05/17 at 14: 00 Magnesium Hydroxide (Milk Of Mag) 30 ml DAILY PRN PO CONSTIPATION; Start at 14:00 Sodium Biphosphate/ Sodium Phosphate 133 ml 133 ml DAILY PRN [place] CONSTIPATION; Start 06/05/17 at 14:00 Sodium Chloride (1/2 NS) 1,000 ml @ 75 mls/hr [id number] IV Last administered on 06/06/17 01:00; Admin Dose 75 MLS/HR; Start 06/05/17 at 13:38; Status Future Hold Lorazepam 0.5 mg 0.5 mg Q6H PRN PO ANXIETY; Start 06/05/17 at 14:00 Piperacillin Sod/ Tazobactam Sod (Zosyn 2.25gm/ 50ml (Pmx)) 50 ml @ 100 mls/hr Q8 IVPB Last administered on 06/08/17 05:31; Admin Dose 100 MLS/HR; Start at 17:00 Vancomycin HCl (Vanco Iv Per Pharmacy) VANCOMYCIN PER PHARMACY NOTE XX ; Start 06/05/17 at 14:00 Hydralazine HCl (Apresoline) 10 mg Q6H PRN IV ELEVATED BLOOD PRESSURE; Start 06/05/17 at 14:00 Nitroglycerin (Nitroglycerin (Sl Tab) 0.4 Mg) 1 tab Q5M PRN SL ANGINA; Start 06/05/17 at 14:00 Folic Acid 1 mg 1 mg DAILY PO Last administered on 06/07/17 11:54; Admin Dose 1 MG; Start 06/06/17 at 09:00 Norepinephrine/ Dextrose (Levophed/D5W) 500 ml @ 0.93 mls/hr TITRATE IV Last administered on 06/08/17 02:12; Admin Dose 0.93 MLS/HR; Start 06/05/17 at 14: 00 Miscellaneous Information (Pending Santyl Order For Wound Care) This patient badillo... PRN PRN XX WOUND CARE; Start 06/06/17 at 01:30 Collagenase (Santyl) 1 applic DAILY TOP Last administered on 06/07/17 09:15; Admin Dose 1 APPLIC; Start 06/06/17 at 15:30 Pantoprazole (Protonix Iv) 40 mg BID@06,18 IV Last administered on 06/08/17 05:30; Admin Dose 40 MG; Start 06/07/17 at 06:00 Amiodarone HCl 200 mg 200 mg DAILY PO Last administered on 06/07/17 11:54; Admin Dose 200 MG; Start 06/07/17 at 09:00 Vancomycin HCl (Vancocin) 250 ml @ 125 mls/hr Q96H IVPB ; Start 06/08/17 at 20 :00 CARINA LINCOLN 10, 2017 08:55
--- NOTE | 2017-06-08 09:22 | CONS ---
Date/Time of Note Date/Time of Note DATE: 06/08/17 TIME: 09:19 Assessment/Plan Assessment/Plan Additional Assessment/Plan Chest x-ray was reviewed from today which is showing bilateral pleural effusions more pronounced on the right side. Pacemaker in the left chest wall. Patient currently on Levophed at 5 mics per minute. Assessment recommendations; 1. Patient admitted for respiratory failure with a DNR status no. 2. End-stage renal disease, on hemodialysis. 3. History of cardiac arrhythmia, status post pacemaker placement in the past. 4. Advanced dementia. 5. Bilateral pleural effusions with CHF. 6. Difficult to rule out superimposed pneumonia. 7. Mild thrombocytopenia. 8. Persistent mild hypotension requiring pressure support. Continue current supportive care. Prognosis is poor. Consultation Date/Type/Reason Admit Date/Time Jun 05, 2017 at 16:11 Initial Consult Date 06/06/17 Type of Consultation: Pulmonary/critical care 24 HR Interval Summary Free Text/Dictation Patient's condition remains critical. Still requiring Levophed for hypotension. Patient remains completely unresponsive due to advanced dementia. General exam; elderly male, on 2 L nasal cannula, unresponsive, currently in no distress. Exam/Review of Systems Vital Signs Vitals Vital Signs Date Time Temp Pulse Resp B/P Pulse Ox O2 Delivery O2 Flow Rate FiO2 06/08/17 07:00 111 22 117/40 100 Nasal Cannula 2.0 06/08/17 05:29 27 06/08/17 04:00 98.3 Intake and Output 06/07/17 06/07/17 06/08/17 15:00 23:00 07:00 Intake Total 634.2 ml 271.8 ml 238.54 ml Output Total 1500 ml 1000 ml 2 ml Balance -865.8 ml -728.2 ml 236.54 ml Exam HEENT exam; supple neck, positive JVD. No lymphadenopathy. Midline trachea. No thyromegaly. Patient has bilateral intraocular lens implants. Patient is edentulous. Chest exam; diminished breath sounds throughout. S1-S2 audible, no murmurs. Pacemaker in left chest wall. Abdomen exam; soft, nondistended. Bowel sounds are very sluggish. Extremity exam; no peripheral edema. Patient is a multiple ecchymosis involving all 4 extremities. 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 Results Result Diagram: 06/08/17 0413 06/08/17 041 Results 24 hrs Laboratory Tests Test 06/08/17 04:13 White Blood Count 10.0 Red Blood Count 3.11 L Hemoglobin 9.4 L Hematocrit 28.2 L Mean Corpuscular Volume 90.7 Mean Corpuscular Hemoglobin 30.2 Mean Corpuscular Hemoglobin Concent 33.3 Red Cell Distribution Width 19.3 H Platelet Count 139 L Mean Platelet Volume 10.2 Neutrophils % 66.7 Lymphocytes % 8.6 L Monocytes % 14.1 H Eosinophils % 9.5 H Basophils % 0.5 Nucleated Red Blood Cells % 0.0 Neutrophils # 6.7 Lymphocytes # 0.9 Monocytes # 1.4 H Eosinophils # 1.0 H Basophils # 0.1 Nucleated Red Blood Cells # 0.0 Sodium Level 140 Potassium Level 4.1 Chloride Level 106 Carbon Dioxide Level 24 Anion Gap 14 Blood Urea Nitrogen 54 H Creatinine 3.73 H Glucose Level 138 Calcium Level 7.1 L Medications Medications Current Medications Ondansetron HCl (Zofran Inj) 4 mg Q6H PRN IV NAUSEA AND/OR VOMITING Last administered on 06/06/17 20:05; Admin Dose 4 MG; Start 06/05/17 at 14:00 Acetaminophen (Tylenol Tab) 650 mg Q6H PRN PO PAIN LEVEL 1-3 OR FEVER Last administered on 06/05/17 23:09; Admin Dose 650 MG; Start 06/05/17 at 14:00 Acetaminophen/ Hydrocodone Bitart ([place] (5/325)) 1 tab Q6H PRN PO MODERATE PAIN LEVEL 4-6; Start 06/05/17 at 14:00 Hydromorphone HCl (Dilaudid) 0.5 mg Q6H PRN IV SEVERE PAIN LEVEL 7-10 Last administered on 06/06/17 20:06; Admin Dose 0.5 MG; Start 06/05/17 at 15:00 Docusate Sodium (Colace) 100 mg Q12H PRN PO CONSTIPATION; Start 06/05/17 at 14: 00 Magnesium Hydroxide (Milk Of Mag) 30 ml DAILY PRN PO CONSTIPATION; Start at 14:00 Sodium Biphosphate/ Sodium Phosphate 133 ml 133 ml DAILY PRN [place] CONSTIPATION; Start 06/05/17 at 14:00 Sodium Chloride (1/2 NS) 1,000 ml @ 75 mls/hr [id number] IV Last administered on 06/06/17 01:00; Admin Dose 75 MLS/HR; Start 06/05/17 at 13:38; Status Future Hold Lorazepam 0.5 mg 0.5 mg Q6H PRN PO ANXIETY; Start 06/05/17 at 14:00 Piperacillin Sod/ Tazobactam Sod (Zosyn 2.25gm/ 50ml (Pmx)) 50 ml @ 100 mls/hr Q8 IVPB Last administered on 06/08/17 05:31; Admin Dose 100 MLS/HR; Start at 17:00 Vancomycin HCl (Vanco Iv Per Pharmacy) VANCOMYCIN PER PHARMACY NOTE XX ; Start 06/05/17 at 14:00 Hydralazine HCl (Apresoline) 10 mg Q6H PRN IV ELEVATED BLOOD PRESSURE; Start 06/05/17 at 14:00 Nitroglycerin (Nitroglycerin (Sl Tab) 0.4 Mg) 1 tab Q5M PRN SL ANGINA; Start 06/05/17 at 14:00 Folic Acid 1 mg 1 mg DAILY PO Last administered on 06/07/17 11:54; Admin Dose 1 MG; Start 06/06/17 at 09:00 Norepinephrine/ Dextrose (Levophed/D5W) 500 ml @ 0.93 mls/hr TITRATE IV Last administered on 06/08/17 02:12; Admin Dose 0.93 MLS/HR; Start 06/05/17 at 14: 00 Miscellaneous Information (Pending Santyl Order For Wound Care) This patient badillo... PRN PRN XX WOUND CARE; Start 06/06/17 at 01:30 Collagenase (Santyl) 1 applic DAILY TOP Last administered on 06/07/17 09:15; Admin Dose 1 APPLIC; Start 06/06/17 at 15:30 Pantoprazole (Protonix Iv) 40 mg BID@06,18 IV Last administered on 06/08/17 05:30; Admin Dose 40 MG; Start 06/07/17 at 06:00 Amiodarone HCl 200 mg 200 mg DAILY PO Last administered on 06/07/17 11:54; Admin Dose 200 MG; Start 06/07/17 at 09:00 Vancomycin HCl (Vancocin) 250 ml @ 125 mls/hr Q96H IVPB ; Start 06/08/17 at 20 :00 QARNI,JOSE MIGUEL Jun 08, 2017 09:22
--- NOTE | 2017-06-08 09:34 | PN ---
DATE: 06/07/2017 SUBJECTIVE: No acute changes. The patient remains obtunded on Levophed drip. He is in no distress , afebrile. VITAL SIGNS: Temperature 98.8, pulse 111, respirations 19, blood pressure 94/41, saturation 100% on nasal cannula. WBC 11.3, H and H 10.3 and 31.6, platelets 146, neutrophils 80.5. MICROBIOLOGY: Blood, urine cultures remain negative. DIAGNOSTICS: Chest x-ray this morning revealed slightly improved appearance of the right lung base. Patient has right IJ triple lumen catheter and permanent pacemaker. ANTIMICROBIALS: The patient is on: 1. Vancomycin. 2. Zosyn. PHYSICAL EXAMINATION: GENERAL: This is a chronically ill-appearing, elderly man who is lethargic, in no distress. HEENT: Head atraumatic, normocephalic. Sclerae anicteric. Buccal mucosa dry. NECK: Supple. CHEST: Rise symmetrical. Breath sounds diminished to bases. HEART: S1, S2. ABDOMEN: Soft. Bowel tones hypoactive. EXTREMITIES: Without cyanosis. Mottled and cyanotic. ASSESSMENT: 1. Severe sepsis with shock. 2. Pneumonia, possibly ongoing aspiration. 3. Zohsp-fz-wpueezx anemia, status post EGD that revealed esophagitis and gastritis. 4. End-stage renal disease, hemodialysis dependent. 5. Coronary artery disease, history of permanent pacemaker. 6. Failure to thrive and dysphagia, status post percutaneous endoscopic gastrostomy. 7. History of enterococcal bacteremia on previous admission. PLAN: Remains hemodynamically unstable. Palliative care on case. He is now a DNR status. Overall , prognosis guarded. Dictated By: JACK CHAN BUSINESS SUPPORT ASSOCIATE for [employer]UHAIR CLINE/DARON Conf#: [id number] DID#: [id number]
[2017-06-08] MEDS: AMIODARONE 200 MG TAB PO SCH (09:39)
[2017-06-08] MEDS: FOLIC ACID 1 MG TAB PO SCH (09:39)
[2017-06-08] MEDS: COLLAGENASE 30 GM TUBE TOP SCH (09:40)
--- NOTE | 2017-06-08 13:46 | CONS ---
Date/Time of Note Date/Time of Note DATE: 06/08/17 TIME: 13:45 Consult Date/Type/Reason Admit Date/Time Jun 05, 2017 at 16:11 Initial Consult Date 06/06/17 Type of Consultation: ID Objective Vital Signs Date Time Temp Pulse Resp B/P Pulse Ox O2 Delivery O2 Flow Rate FiO2 06/08/17 12:15 81 22 92/31 100 06/08/17 12:00 98.2 Nasal Cannula 06/08/17 09:00 2.0 06/08/17 05:29 27 Intake and Output 06/07/17 06/07/17 06/08/17 14:59 22:59 06:59 Intake Total 709.2 ml 201.8 ml 312.2 ml Output Total 1500 ml 1000 ml 2 ml Balance -790.8 ml -798.2 ml 310.2 ml Results/Medications Result Diagram: 06/08/17 0413 06/08/17 0413 Results 24 hrs Laboratory Tests Test 06/08/17 04:13 White Blood Count 10.0 Red Blood Count 3.11 L Hemoglobin 9.4 L Hematocrit 28.2 L Mean Corpuscular Volume 90.7 Mean Corpuscular Hemoglobin 30.2 Mean Corpuscular Hemoglobin Concent 33.3 Red Cell Distribution Width 19.3 H Platelet Count 139 L Mean Platelet Volume 10.2 Neutrophils % 66.7 Lymphocytes % 8.6 L Monocytes % 14.1 H Eosinophils % 9.5 H Basophils % 0.5 Nucleated Red Blood Cells % 0.0 Neutrophils # 6.7 Lymphocytes # 0.9 Monocytes # 1.4 H Eosinophils # 1.0 H Basophils # 0.1 Nucleated Red Blood Cells # 0.0 Sodium Level 140 Potassium Level 4.1 Chloride Level 106 Carbon Dioxide Level 24 Anion Gap 14 Blood Urea Nitrogen 54 H Creatinine 3.73 H Glucose Level 138 Calcium Level 7.1 L Medications Current Medications Ondansetron HCl (Zofran Inj) 4 mg Q6H PRN IV NAUSEA AND/OR VOMITING Last administered on 06/06/17 20:05; Admin Dose 4 MG; Start 06/05/17 at 14:00 Acetaminophen (Tylenol Tab) 650 mg Q6H PRN PO PAIN LEVEL 1-3 OR FEVER Last administered on 06/05/17 23:09; Admin Dose 650 MG; Start 06/05/17 at 14:00 Acetaminophen/ Hydrocodone Bitart ([place] (5/325)) 1 tab Q6H PRN PO MODERATE PAIN LEVEL 4-6; Start 06/05/17 at 14:00 Hydromorphone HCl (Dilaudid) 0.5 mg Q6H PRN IV SEVERE PAIN LEVEL 7-10 Last administered on 06/06/17 20:06; Admin Dose 0.5 MG; Start 06/05/17 at 15:00 Docusate Sodium (Colace) 100 mg Q12H PRN PO CONSTIPATION; Start 06/05/17 at 14: 00 Magnesium Hydroxide (Milk Of Mag) 30 ml DAILY PRN PO CONSTIPATION; Start at 14:00 Sodium Biphosphate/ Sodium Phosphate 133 ml 133 ml DAILY PRN [place] CONSTIPATION; Start 06/05/17 at 14:00 Sodium Chloride (1/2 NS) 1,000 ml @ 75 mls/hr [id number] IV Last administered on 06/06/17 01:00; Admin Dose 75 MLS/HR; Start 06/05/17 at 13:38; Status Future Hold Lorazepam 0.5 mg 0.5 mg Q6H PRN PO ANXIETY; Start 06/05/17 at 14:00 Piperacillin Sod/ Tazobactam Sod (Zosyn 2.25gm/ 50ml (Pmx)) 50 ml @ 100 mls/hr Q8 IVPB Last administered on 06/08/17 05:31; Admin Dose 100 MLS/HR; Start at 17:00 Vancomycin HCl (Vanco Iv Per Pharmacy) VANCOMYCIN PER PHARMACY NOTE XX ; Start 06/05/17 at 14:00 Hydralazine HCl (Apresoline) 10 mg Q6H PRN IV ELEVATED BLOOD PRESSURE; Start 06/05/17 at 14:00 Nitroglycerin (Nitroglycerin (Sl Tab) 0.4 Mg) 1 tab Q5M PRN SL ANGINA; Start 06/05/17 at 14:00 Folic Acid 1 mg 1 mg DAILY PO Last administered on 06/08/17 09:39; Admin Dose 1 MG; Start 06/06/17 at 09:00 Norepinephrine/ Dextrose (Levophed/D5W) 500 ml @ 0.93 mls/hr TITRATE IV Last administered on 06/08/17 02:12; Admin Dose 0.93 MLS/HR; Start 06/05/17 at 14: 00 Miscellaneous Information (Pending Santyl Order For Wound Care) This patient badillo... PRN PRN XX WOUND CARE; Start 06/06/17 at 01:30 Collagenase (Santyl) 1 applic DAILY TOP Last administered on 06/08/17 09:40; Admin Dose 1 APPLIC; Start 06/06/17 at 15:30 Pantoprazole (Protonix Iv) 40 mg BID@06,18 IV Last administered on 06/08/17 05:30; Admin Dose 40 MG; Start 06/07/17 at 06:00 Amiodarone HCl 200 mg 200 mg DAILY PO Last administered on 06/08/17 09:39; Admin Dose 200 MG; Start 06/07/17 at 09:00 Vancomycin HCl (Vancocin) 250 ml @ 125 mls/hr Q96H IVPB ; Start 06/08/17 at 20 :00 Assessment/Plan Chief Complaint/Hosp Course SUBJECTIVE: No acute changes. The patient remains obtunded on Levophed drip at 4 mcg/min. He is in no distress, afebrile. MICROBIOLOGY: Blood, urine cultures remain negative. Patient has right IJ triple lumen catheter and permanent pacemaker. ANTIMICROBIALS: 1. Vancomycin. 2. Zosyn. PHYSICAL EXAMINATION: GENERAL: This is a chronically ill-appearing, elderly man who is lethargic, in no distress. HEENT: Head atraumatic, normocephalic. Sclerae anicteric. Buccal mucosa dry. NECK: Supple. CHEST: Rise symmetrical. Breath sounds diminished to bases. HEART: S1, S2. ABDOMEN: Soft. Bowel tones hypoactive. EXTREMITIES: Without cyanosis. Mottled and cyanotic. ASSESSMENT: 1. Severe sepsis with shock. 2. Pneumonia, possibly ongoing aspiration. 3. Asjoy-dc-zkzkirv anemia, status post EGD that revealed esophagitis and gastritis. 4. End-stage renal disease, hemodialysis dependent. 5. Coronary artery disease, history of permanent pacemaker. 6. Failure to thrive and dysphagia, status post percutaneous endoscopic gastrostomy. 7. History of enterococcal bacteremia on previous admission. PLAN: Remains hemodynamically unstable. Continue present care, abx, follow recommendations of specialists. DW staff Problems: JACK CHAN NP Jun 08, 2017 13:46
--- NOTE | 2017-06-08 15:48 | CONS ---
Date/Time of Note Date/Time of Note DATE: 06/08/17 TIME: 15:47 Consult Date/Type/Reason Admit Date/Time Jun 05, 2017 at 16:11 Initial Consult Date 06/06/17 Type of Consultation: card Subjective cardiology follow up note: S: D/W staff in ICU . rhythm was reviewed. pt remains in NSR/sinus tachy, demand pacing pt remains nonverbal. he is still on levophed drip in ICU but only at 3 annamaria now . O: General: elderly man in no acute distress HEENT: NC/AT. pupils are equal. round. NECK: NO JVD. no stridor. chest: s/p right sided HD access CV: RRR. systolic murmur; no gallop or rubs. PULM: no wheezing . but mild rhonchi. GI: SOFT, NT, ND, no rebound or guarding Extremity: + B/L LE edema. no clubbing. neuro: opens his eyes but does not verbalize. . Psych: calm and pleasant rectal: deferred : normal male Objective Vital Signs Date Time Temp Pulse Resp B/P Pulse Ox O2 Delivery O2 Flow Rate FiO2 06/08/17 12:15 81 22 92/31 100 06/08/17 12:00 98.2 Nasal Cannula 06/08/17 09:00 2.0 06/08/17 05:29 27 Intake and Output 06/07/17 06/07/17 06/08/17 15:00 23:00 07:00 Intake Total 634.2 ml 271.8 ml 238.54 ml Output Total 1500 ml 1000 ml 2 ml Balance -865.8 ml -728.2 ml 236.54 ml Results/Medications Result Diagram: 06/08/17 0413 06/08/17 0413 Results 24 hrs Laboratory Tests Test 06/08/17 04:13 White Blood Count 10.0 Red Blood Count 3.11 L Hemoglobin 9.4 L Hematocrit 28.2 L Mean Corpuscular Volume 90.7 Mean Corpuscular Hemoglobin 30.2 Mean Corpuscular Hemoglobin Concent 33.3 Red Cell Distribution Width 19.3 H Platelet Count 139 L Mean Platelet Volume 10.2 Neutrophils % 66.7 Lymphocytes % 8.6 L Monocytes % 14.1 H Eosinophils % 9.5 H Basophils % 0.5 Nucleated Red Blood Cells % 0.0 Neutrophils # 6.7 Lymphocytes # 0.9 Monocytes # 1.4 H Eosinophils # 1.0 H Basophils # 0.1 Nucleated Red Blood Cells # 0.0 Sodium Level 140 Potassium Level 4.1 Chloride Level 106 Carbon Dioxide Level 24 Anion Gap 14 Blood Urea Nitrogen 54 H Creatinine 3.73 H Glucose Level 138 Calcium Level 7.1 L Medications Current Medications Ondansetron HCl (Zofran Inj) 4 mg Q6H PRN IV NAUSEA AND/OR VOMITING Last administered on 06/06/17 20:05; Admin Dose 4 MG; Start 06/05/17 at 14:00 Acetaminophen (Tylenol Tab) 650 mg Q6H PRN PO PAIN LEVEL 1-3 OR FEVER Last administered on 06/05/17 23:09; Admin Dose 650 MG; Start 06/05/17 at 14:00 Acetaminophen/ Hydrocodone Bitart ([place] (5/325)) 1 tab Q6H PRN PO MODERATE PAIN LEVEL 4-6; Start 06/05/17 at 14:00 Hydromorphone HCl (Dilaudid) 0.5 mg Q6H PRN IV SEVERE PAIN LEVEL 7-10 Last administered on 06/06/17 20:06; Admin Dose 0.5 MG; Start 06/05/17 at 15:00 Docusate Sodium (Colace) 100 mg Q12H PRN PO CONSTIPATION; Start 06/05/17 at 14: 00 Magnesium Hydroxide (Milk Of Mag) 30 ml DAILY PRN PO CONSTIPATION; Start at 14:00 Sodium Biphosphate/ Sodium Phosphate 133 ml 133 ml DAILY PRN OR CONSTIPATION; Start 06/05/17 at 14:00 Sodium Chloride (1/2 NS) 1,000 ml @ 75 mls/hr [id number] IV Last administered on 06/06/17 01:00; Admin Dose 75 MLS/HR; Start 06/05/17 at 13:38; Status Future Hold Lorazepam 0.5 mg 0.5 mg Q6H PRN PO ANXIETY; Start 06/05/17 at 14:00 Piperacillin Sod/ Tazobactam Sod (Zosyn 2.25gm/ 50ml (Pmx)) 50 ml @ 100 mls/hr Q8 IVPB Last administered on 06/08/17 15:09; Admin Dose 100 MLS/HR; Start at 17:00 Vancomycin HCl (Vanco Iv Per Pharmacy) VANCOMYCIN PER PHARMACY NOTE XX ; Start 06/05/17 at 14:00 Hydralazine HCl (Apresoline) 10 mg Q6H PRN IV ELEVATED BLOOD PRESSURE; Start 06/05/17 at 14:00 Nitroglycerin (Nitroglycerin (Sl Tab) 0.4 Mg) 1 tab Q5M PRN SL ANGINA; Start 06/05/17 at 14:00 Folic Acid 1 mg 1 mg DAILY PO Last administered on 06/08/17 09:39; Admin Dose 1 MG; Start 06/06/17 at 09:00 Norepinephrine/ Dextrose (Levophed/D5W) 500 ml @ 0.93 mls/hr TITRATE IV Last administered on 06/08/17 02:12; Admin Dose 0.93 MLS/HR; Start 06/05/17 at 14: 00 Miscellaneous Information (Pending Santyl Order For Wound Care) This patient badillo... PRN PRN XX WOUND CARE; Start 06/06/17 at 01:30 Collagenase (Santyl) 1 applic DAILY TOP Last administered on 06/08/17 09:40; Admin Dose 1 APPLIC; Start 06/06/17 at 15:30 Pantoprazole (Protonix Iv) 40 mg BID@06,18 IV Last administered on 06/08/17 05:30; Admin Dose 40 MG; Start 06/07/17 at 06:00 Amiodarone HCl 200 mg 200 mg DAILY PO Last administered on 06/08/17 09:39; Admin Dose 200 MG; Start 06/07/17 at 09:00 Vancomycin HCl (Vancocin) 250 ml @ 125 mls/hr Q96H IVPB ; Start 06/08/17 at 20 :00 Assessment/Plan Chief Complaint/Hosp Course 1. shock: probably septic 2. P afib: currently in NSR 3. sick sinus syndrome: S/P;PPM 4. hx PPM; normal functioning now 5. ESRD ON HD 6. hypoxemic resp failure: improved now 7. severe dementia 8. severe anemia 9. hx recent bacteremia. 10. mildly abnormal trop due to above ( sepsis, renal failure, etc. doubt AMI ) . Recommendations: We will hold off on aspirin for now given patient's severe anemia. We will continue with ICU care and Levophed drip. Try to wean off the Levophed if able to tolerate it. Hemodialysis will be managed per renal team. Antibiotics are being managed as per internal medicine and ID consultation rec Patient is not able to tolerate any beta-felix. cont amiodarone to try to maintain him in sinus rhythm. Electrolytes will be checked periodically and adjusted accordingly. Oxygen supplement will be given. BiPAP as needed will be given as well. Continue with ICU care as long as the patient requires to be on Levophed drip. CODE STATUS is DNR now Echocardiogram was recently done last month. no further cardiac work up at this time. will f/u prn over the weekend. please contact with any questions. MELVIN BRODERICK MD [facility] Problems: MELVIN BRODERICK MD Jun 08, 2017 15:48
[2017-06-08] MEDS: VANCOMYCIN 1 GM in NS 250 ML IVPB SCH (19:28)
--- NOTE | 2017-06-08 21:37 | CONS ---
Date/Time of Note Date/Time of Note DATE: 06/08/17 TIME: 21:35 Assessment/Plan Assessment/Plan Chief Complaint/Hosp Course Assessment: Positive FOBT Anemia-2 units of PRBCs ordered to be transfused today EGD 06/06/17 Impression: Esophagitis Gastritis. Rule out H pylori. Biopsied (likely cause of bleeding) GT in place Plan: Continue PPI bid Monitor H/H, transfuse as needed Colonoscopy not warranted at this time Spoke to Jon Hooper regarding results of EGD and plan not to move forward with colonoscopy As there are no pending GI procedures, GI will follow peripherally. recommend palliative therapy Problems: Consultation Date/Type/Reason Admit Date/Time Jun 05, 2017 at 16:11 Initial Consult Date 06/06/17 Type of Consultation: GI 24 HR Interval Summary Subjective hx not possible: pt non-verbal, pt critical Exam/Review of Systems Vital Signs Vitals Vital Signs Date Time Temp Pulse Resp B/P Pulse Ox O2 Delivery O2 Flow Rate FiO2 06/08/17 20:22 2.0 06/08/17 20:00 84 06/08/17 17:00 21 113/37 100 Nasal Cannula 06/08/17 16:00 98.0 06/08/17 05:29 27 Intake and Output 06/07/17 06/07/17 06/08/17 15:00 23:00 07:00 Intake Total 634.2 ml 271.8 ml 258.54 ml Output Total 1500 ml 1000 ml 2 ml Balance -865.8 ml -728.2 ml 256.54 ml Exam Head: atraumatic, normocephalic Eyes: EOMI, nl conjunctiva, nl lids ENMT: nl external ears & nose, nl lips & teeth, nl nasal mucosa & septum Neck: non-tender, supple Respiratory: clear to auscultation, normal air movement Cardiovascular: nl pulses, regular rate and rhythm Gastrointestinal: bowel sounds, non-tender, soft Results Result Diagram: 06/08/17 0413 06/08/17 041 Results 24 hrs Laboratory Tests Test 06/08/17 04:13 White Blood Count 10.0 Red Blood Count 3.11 L Hemoglobin 9.4 L Hematocrit 28.2 L Mean Corpuscular Volume 90.7 Mean Corpuscular Hemoglobin 30.2 Mean Corpuscular Hemoglobin Concent 33.3 Red Cell Distribution Width 19.3 H Platelet Count 139 L Mean Platelet Volume 10.2 Neutrophils % 66.7 Lymphocytes % 8.6 L Monocytes % 14.1 H Eosinophils % 9.5 H Basophils % 0.5 Nucleated Red Blood Cells % 0.0 Neutrophils # 6.7 Lymphocytes # 0.9 Monocytes # 1.4 H Eosinophils # 1.0 H Basophils # 0.1 Nucleated Red Blood Cells # 0.0 Sodium Level 140 Potassium Level 4.1 Chloride Level 106 Carbon Dioxide Level 24 Anion Gap 14 Blood Urea Nitrogen 54 H Creatinine 3.73 H Glucose Level 138 Calcium Level 7.1 L Medications Medications Current Medications Ondansetron HCl (Zofran Inj) 4 mg Q6H PRN IV NAUSEA AND/OR VOMITING Last administered on 06/06/17 20:05; Admin Dose 4 MG; Start 06/05/17 at 14:00 Acetaminophen (Tylenol Tab) 650 mg Q6H PRN PO PAIN LEVEL 1-3 OR FEVER Last administered on 06/05/17 23:09; Admin Dose 650 MG; Start 06/05/17 at 14:00 Acetaminophen/ Hydrocodone Bitart ([place] (5/325)) 1 tab Q6H PRN PO MODERATE PAIN LEVEL 4-6; Start 06/05/17 at 14:00 Hydromorphone HCl (Dilaudid) 0.5 mg Q6H PRN IV SEVERE PAIN LEVEL 7-10 Last administered on 06/06/17 20:06; Admin Dose 0.5 MG; Start 06/05/17 at 15:00 Docusate Sodium (Colace) 100 mg Q12H PRN PO CONSTIPATION; Start 06/05/17 at 14: 00 Magnesium Hydroxide (Milk Of Mag) 30 ml DAILY PRN PO CONSTIPATION; Start at 14:00 Sodium Biphosphate/ Sodium Phosphate 133 ml 133 ml DAILY PRN [place] CONSTIPATION; Start 06/05/17 at 14:00 Sodium Chloride (1/2 NS) 1,000 ml @ 75 mls/hr [id number] IV Last administered on 06/06/17 01:00; Admin Dose 75 MLS/HR; Start 06/05/17 at 13:38; Status Future Hold Lorazepam 0.5 mg 0.5 mg Q6H PRN PO ANXIETY; Start 06/05/17 at 14:00 Piperacillin Sod/ Tazobactam Sod (Zosyn 2.25gm/ 50ml (Pmx)) 50 ml @ 100 mls/hr Q8 IVPB Last administered on 06/08/17 15:09; Admin Dose 100 MLS/HR; Start at 17:00 Vancomycin HCl (Vanco Iv Per Pharmacy) VANCOMYCIN PER PHARMACY NOTE XX ; Start 06/05/17 at 14:00 Hydralazine HCl (Apresoline) 10 mg Q6H PRN IV ELEVATED BLOOD PRESSURE; Start 06/05/17 at 14:00 Nitroglycerin (Nitroglycerin (Sl Tab) 0.4 Mg) 1 tab Q5M PRN SL ANGINA; Start 06/05/17 at 14:00 Folic Acid 1 mg 1 mg DAILY PO Last administered on 06/08/17 09:39; Admin Dose 1 MG; Start 06/06/17 at 09:00 Norepinephrine/ Dextrose (Levophed/D5W) 500 ml @ 0.93 mls/hr TITRATE IV Last administered on 06/08/17 02:12; Admin Dose 0.93 MLS/HR; Start 06/05/17 at 14: 00 Miscellaneous Information (Pending Santyl Order For Wound Care) This patient badillo... PRN PRN XX WOUND CARE; Start 06/06/17 at 01:30 Collagenase (Santyl) 1 applic DAILY TOP Last administered on 06/08/17 09:40; Admin Dose 1 APPLIC; Start 06/06/17 at 15:30 Pantoprazole (Protonix Iv) 40 mg BID@06,18 IV Last administered on 06/08/17 17:25; Admin Dose 40 MG; Start 06/07/17 at 06:00 Amiodarone HCl 200 mg 200 mg DAILY PO Last administered on 06/08/17 09:39; Admin Dose 200 MG; Start 06/07/17 at 09:00 Vancomycin HCl (Vancocin) 250 ml @ 125 mls/hr Q96H IVPB Last administered on 06/08/17 19:28; Admin Dose 125 MLS/HR; Start 06/08/17 at 20:00 TYLER STANTON MD Jun 08, 2017 21:37
[2017-06-09] VITALS (92 sets, daily range): BP systolic 64–135; BP diastolic 23–86; PULSE 70–107; RESP 15–25
[2017-06-09] MEDS: PIPER-TAZO 2.25 GM (PMX) 50 ML IVPB SCH (05:44)
[2017-06-09] MEDS: PANTOPRAZOLE 40 MG INJ IV SCH ×2 (05:44→18:26)
[2017-06-09] MEDS: CALCIUM ACETATE 667 MG CAP PO SCH ×3 (07:16→17:40)
--- NOTE | 2017-06-09 08:26 | CONS ---
Date/Time of Note Date/Time of Note DATE: 06/09/17 TIME: 08:23 Assessment/Plan Assessment/Plan Chief Complaint/Hosp Course 1. shock: probably septic 2. P afib: currently in NSR 3. sick sinus syndrome: S/P;PPM 4. hx PPM; normal functioning now 5. ESRD ON HD 6. hypoxemic resp failure: improved now 7. severe dementia 8. severe anemia 9. hx recent bacteremia. 10. mildly abnormal trop due to above ( sepsis, renal failure, etc. doubt AMI ). 11. preserved LV function 12. Moderate Problems: Additional Assessment/Plan 1) ABX 2) Pressors 3) PROGNOSIS GUARDED 4) NO change in cardica meds 5) dw son in 25 min Consultation Date/Type/Reason Admit Date/Time Jun 05, 2017 at 16:11 Initial Consult Date 06/06/17 Type of Consultation: cv 24 HR Interval Summary Subjective hx not possible: pt non-verbal, pt critical status Exam/Review of Systems Vital Signs Vitals Vital Signs Date Time Temp Pulse Resp B/P Pulse Ox O2 Delivery O2 Flow Rate FiO2 06/09/17 08:15 73 06/09/17 07:20 Nasal Cannula 2.0 06/09/17 07:15 18 112/37 100 06/09/17 04:00 98.6 06/08/17 05:29 27 Intake and Output 06/08/17 06/08/17 06/09/17 15:00 23:00 07:00 Intake Total 189.92 ml 255.54 ml 202.6 ml Balance 189.92 ml 255.54 ml 202.6 ml Exam Constitutional: frail, non-verbal Head: atraumatic, normocephalic Neck: jvd Respiratory: diminished breath sounds Cardiovascular: regular rate and rhythm Gastrointestinal: soft Musculoskeletal: muscle weakness Extremities: normal pulses Results Result Diagram: 06/08/17 0413 06/08/17 041 Medications Medications Current Medications Ondansetron HCl (Zofran Inj) 4 mg Q6H PRN IV NAUSEA AND/OR VOMITING Last administered on 06/06/17 20:05; Admin Dose 4 MG; Start 06/05/17 at 14:00 Acetaminophen (Tylenol Tab) 650 mg Q6H PRN PO PAIN LEVEL 1-3 OR FEVER Last administered on 06/05/17 23:09; Admin Dose 650 MG; Start 06/05/17 at 14:00 Acetaminophen/ Hydrocodone Bitart ([place] (5/325)) 1 tab Q6H PRN PO MODERATE PAIN LEVEL 4-6; Start 06/05/17 at 14:00 Hydromorphone HCl (Dilaudid) 0.5 mg Q6H PRN IV SEVERE PAIN LEVEL 7-10 Last administered on 06/06/17 20:06; Admin Dose 0.5 MG; Start 06/05/17 at 15:00 Docusate Sodium (Colace) 100 mg Q12H PRN PO CONSTIPATION; Start 06/05/17 at 14: 00 Magnesium Hydroxide (Milk Of Mag) 30 ml DAILY PRN PO CONSTIPATION; Start at 14:00 Sodium Biphosphate/ Sodium Phosphate 133 ml 133 ml DAILY PRN [place] CONSTIPATION; Start 06/05/17 at 14:00 Sodium Chloride (1/2 NS) 1,000 ml @ 75 mls/hr [id number] IV Last administered on 06/06/17 01:00; Admin Dose 75 MLS/HR; Start 06/05/17 at 13:38; Status Future Hold Lorazepam 0.5 mg 0.5 mg Q6H PRN PO ANXIETY; Start 06/05/17 at 14:00 Piperacillin Sod/ Tazobactam Sod (Zosyn 2.25gm/ 50ml (Pmx)) 50 ml @ 100 mls/hr Q8 IVPB Last administered on 06/09/17 05:44; Admin Dose 100 MLS/HR; Start at 17:00 Vancomycin HCl (Vanco Iv Per Pharmacy) VANCOMYCIN PER PHARMACY NOTE XX ; Start 06/05/17 at 14:00 Hydralazine HCl (Apresoline) 10 mg Q6H PRN IV ELEVATED BLOOD PRESSURE; Start 06/05/17 at 14:00 Nitroglycerin (Nitroglycerin (Sl Tab) 0.4 Mg) 1 tab Q5M PRN SL ANGINA; Start 06/05/17 at 14:00 Folic Acid 1 mg 1 mg DAILY PO Last administered on 06/08/17 09:39; Admin Dose 1 MG; Start 06/06/17 at 09:00 Norepinephrine/ Dextrose (Levophed/D5W) 500 ml @ 0.93 mls/hr TITRATE IV Last administered on 06/09/17 03:57; Admin Dose 0.93 MLS/HR; Start 06/05/17 at 14: 00 Miscellaneous Information (Pending Santyl Order For Wound Care) This patient badillo... PRN PRN XX WOUND CARE; Start 06/06/17 at 01:30 Collagenase (Santyl) 1 applic DAILY TOP Last administered on 06/08/17 09:40; Admin Dose 1 APPLIC; Start 06/06/17 at 15:30 Pantoprazole (Protonix Iv) 40 mg BID@06,18 IV Last administered on 06/09/17 05:44; Admin Dose 40 MG; Start 06/07/17 at 06:00 Amiodarone HCl 200 mg 200 mg DAILY PO Last administered on 06/08/17 09:39; Admin Dose 200 MG; Start 06/07/17 at 09:00 Vancomycin HCl (Vancocin) 250 ml @ 125 mls/hr Q96H IVPB Last administered on 06/08/17 19:28; Admin Dose 125 MLS/HR; Start 06/08/17 at 20:00 ARMEN BARRIOS MD Jun 09, 2017 08:26
[2017-06-09] MEDS: FOLIC ACID 1 MG TAB PO SCH (08:38)
[2017-06-09 08:56] LABS: BASOPHIL # 0.1 10^3/ul (0.0-0.1); BASOPHILS % 0.6 % (0.0-2.0); EOSINOPHILS # 0.8 10^3/ul (0.0-0.5); EOSINOPHILS % 10.3 % (0.0-7.0); HEMATOCRIT 27.6 % (42.0-52.0); HEMOGLOBIN 8.9 g/dl (14.0-18.0); LYMPHOCYTES # 0.9 10^3/ul (0.8-2.9); LYMPHOCYTES % 10.9 % (15.0-51.0); MEAN CORPUSCULAR HEMOGLOBIN 29.1 pg (29.0-33.0); MEAN CORPUSCULAR HGB CONC 32.2 g/dl (32.0-37.0); MEAN CORPUSCULAR VOLUME 90.2 fl (82.0-101.0); MEAN PLATELET VOLUME 10.3 fl (7.4-10.4); MONOCYTE # 0.7 10^3/ul (0.3-0.9); MONOCYTES % 8.2 % (0.0-11.0); NEUTROPHIL # 5.7 10^3/ul (1.6-7.5); NEUTROPHILS % 69.6 % (39.0-77.0); PLATELET COUNT 104 10^3/UL (140-415); RED BLOOD COUNT 3.06 10^6/ul (4.70-6.10); RED CELL DISTRIBUTION WIDTH 19.3 % (11.5-14.5); WHITE BLOOD COUNT 8.1 10^3/ul (4.8-10.8)
[2017-06-09 09:15] LABS: CALCIUM 7.2 mg/dl (8.4-10.2); CREATININE 2.96 mg/dl (0.61-1.24); POTASSIUM 3.7 mmol/L (3.5-5.1)
--- NOTE | 2017-06-09 10:18 | CONS ---
Date/Time of Note Date/Time of Note DATE: 06/09/17 TIME: 10:15 Assessment/Plan Assessment/Plan Additional Assessment/Plan Assessment and recommendations; 1. Patient admitted with pneumonia and CHF with hypotension, clinically improved. 2. Advanced dementia. 3. Anemia and thrombocytopenia. 4. End-stage renal disease, on hemodialysis. Continue current supportive care. Patient can be transferred to the medical floor. Prognosis is poor. Consultation Date/Type/Reason Admit Date/Time Jun 05, 2017 at 16:11 Initial Consult Date 06/06/17 Type of Consultation: Pulmonary/critical care 24 HR Interval Summary Free Text/Dictation Patient's condition has improved to the point where he is no longer requiring any pressor support. Patient has remained hemodynamically stable. Currently getting hemodialysis at bedside. General exam; elderly male, unresponsive, currently in no distress. Exam/Review of Systems Vital Signs Vitals Vital Signs Date Time Temp Pulse Resp B/P Pulse Ox O2 Delivery O2 Flow Rate FiO2 06/09/17 10:00 97 20 107/31 87 Nasal Cannula 06/09/17 09:00 2.0 06/09/17 08:00 98.0 06/08/17 05:29 27 Intake and Output 06/08/17 06/08/17 06/09/17 15:00 23:00 07:00 Intake Total 189.92 ml 255.54 ml 202.6 ml Balance 189.92 ml 255.54 ml 202.6 ml Exam HEENT exam; supple neck, positive JVD. No lymphadenopathy. Midline trachea. No thyromegaly. Patient is edentulous. Chest exam; diminished breath sounds bilaterally. S1-S2 audible, no murmurs. Regular rhythm. Abdomen exam; soft, nondistended. No organomegaly. Bowel sounds audible. Extremity exam; no peripheral edema. SHERIFF SERGEANT exam; patient remains unresponsive. Results Result Diagram: 06/09/17 0816 06/09/17 0816 Results 24 hrs Laboratory Tests Test 06/09/17 08:16 White Blood Count 8.1 Red Blood Count 3.06 L Hemoglobin 8.9 L Hematocrit 27.6 L Mean Corpuscular Volume 90.2 Mean Corpuscular Hemoglobin 29.1 Mean Corpuscular Hemoglobin Concent 32.2 Red Cell Distribution Width 19.3 H Platelet Count 104 #L Mean Platelet Volume 10.3 Neutrophils % 69.6 Lymphocytes % 10.9 L Monocytes % 8.2 Eosinophils % 10.3 H Basophils % 0.6 Nucleated Red Blood Cells % 0.0 Neutrophils # 5.7 Lymphocytes # 0.9 Monocytes # 0.7 Eosinophils # 0.8 H Basophils # 0.1 Nucleated Red Blood Cells # 0.0 Sodium Level 139 Potassium Level 3.7 Chloride Level 107 Carbon Dioxide Level 28 Anion Gap 8 Blood Urea Nitrogen 42 #H Creatinine 2.96 H Glucose Level 150 Calcium Level 7.2 L Medications Medications Current Medications Ondansetron HCl (Zofran Inj) 4 mg Q6H PRN IV NAUSEA AND/OR VOMITING Last administered on 06/06/17 20:05; Admin Dose 4 MG; Start 06/05/17 at 14:00 Acetaminophen (Tylenol Tab) 650 mg Q6H PRN PO PAIN LEVEL 1-3 OR FEVER Last administered on 06/05/17 23:09; Admin Dose 650 MG; Start 06/05/17 at 14:00 Acetaminophen/ Hydrocodone Bitart ([place] (5/325)) 1 tab Q6H PRN PO MODERATE PAIN LEVEL 4-6; Start 06/05/17 at 14:00 Hydromorphone HCl (Dilaudid) 0.5 mg Q6H PRN IV SEVERE PAIN LEVEL 7-10 Last administered on 06/06/17 20:06; Admin Dose 0.5 MG; Start 06/05/17 at 15:00 Docusate Sodium (Colace) 100 mg Q12H PRN PO CONSTIPATION; Start 06/05/17 at 14: 00 Magnesium Hydroxide (Milk Of Mag) 30 ml DAILY PRN PO CONSTIPATION; Start at 14:00 Sodium Biphosphate/ Sodium Phosphate 133 ml [address] CONSTIPATION; Start 06/05/17 at 14:00 Sodium Chloride (1/2 NS) 1,000 ml @ 75 mls/hr [id number] IV Last administered on 06/06/17 01:00; Admin Dose 75 MLS/HR; Start 06/05/17 at 13:38; Status Future Hold Lorazepam 0.5 mg 0.5 mg Q6H PRN PO ANXIETY; Start 06/05/17 at 14:00 Piperacillin Sod/ Tazobactam Sod (Zosyn 2.25gm/ 50ml (Pmx)) 50 ml @ 100 mls/hr Q8 IVPB Last administered on 06/09/17 05:44; Admin Dose 100 MLS/HR; Start at 17:00 Vancomycin HCl (Vanco Iv Per Pharmacy) VANCOMYCIN PER PHARMACY NOTE XX ; Start 06/05/17 at 14:00 Hydralazine HCl (Apresoline) 10 mg Q6H PRN IV ELEVATED BLOOD PRESSURE; Start 06/05/17 at 14:00 Nitroglycerin (Nitroglycerin (Sl Tab) 0.4 Mg) 1 tab Q5M PRN SL ANGINA; Start 06/05/17 at 14:00 Folic Acid 1 mg 1 mg DAILY PO Last administered on 06/08/17 09:39; Admin Dose 1 MG; Start 06/06/17 at 09:00 Norepinephrine/ Dextrose (Levophed/D5W) 500 ml @ 0.93 mls/hr TITRATE IV Last administered on 06/09/17 03:57; Admin Dose 0.93 MLS/HR; Start 06/05/17 at 14: 00 Miscellaneous Information (Pending Santyl Order For Wound Care) This patient badillo... PRN PRN XX WOUND CARE; Start 06/06/17 at 01:30 Collagenase (Santyl) 1 applic DAILY TOP Last administered on 06/08/17 09:40; Admin Dose 1 APPLIC; Start 06/06/17 at 15:30 Pantoprazole (Protonix Iv) 40 mg BID@06,18 IV Last administered on 06/09/17 05:44; Admin Dose 40 MG; Start 06/07/17 at 06:00 Amiodarone HCl 200 mg 200 mg DAILY PO Last administered on 06/08/17 09:39; Admin Dose 200 MG; Start 06/07/17 at 09:00 Vancomycin HCl (Vancocin) 250 ml @ 125 mls/hr Q96H IVPB Last administered on 06/08/17 19:28; Admin Dose 125 MLS/HR; Start 06/08/17 at 20:00 JOSE MIGUEL NICHOLS Jun 09, 2017 10:18
[2017-06-09] MEDS: AMIODARONE 200 MG TAB PO SCH (11:08)
[2017-06-09] MEDS: COLLAGENASE 30 GM TUBE TOP SCH (11:08)
--- NOTE | 2017-06-09 12:13 | CONS ---
Date/Time of Note Date/Time of Note DATE: 06/09/17 TIME: 12:12 Assessment/Plan Assessment/Plan Chief Complaint/Hosp Course Assessment: Positive FOBT Anemia-2 units of PRBCs ordered to be transfused today EGD 06/06/17 Impression: Esophagitis Gastritis. Rule out H pylori. Biopsied (likely cause of bleeding) GT in place Plan: Continue PPI bid Monitor H/H, transfuse as needed Colonoscopy not warranted at this time Spoke to Son Giovanny Hooper regarding results of EGD and plan not to move forward with colonoscopy As there are no pending GI procedures, GI will follow peripherally. recommend palliative therapy Problems: Consultation Date/Type/Reason Admit Date/Time Jun 05, 2017 at 16:11 Initial Consult Date 06/06/17 Type of Consultation: GI 24 HR Interval Summary Subjective hx not possible: pt non-verbal, pt critical Exam/Review of Systems Vital Signs Vitals Vital Signs Date Time Temp Pulse Resp B/P Pulse Ox O2 Delivery O2 Flow Rate FiO2 06/09/17 10:15 104 06/09/17 10:15 19 06/09/17 10:00 107/31 87 Nasal Cannula 06/09/17 09:00 2.0 06/09/17 08:00 98.0 06/08/17 05:29 27 Intake and Output 06/08/17 06/08/17 06/09/17 15:00 23:00 07:00 Intake Total 189.92 ml 255.54 ml 222.6 ml Balance 189.92 ml 255.54 ml 222.6 ml Exam Constitutional: non-verbal Psych: confusion Head: atraumatic, normocephalic Eyes: EOMI, nl conjunctiva, nl lids ENMT: nl external ears & nose, nl lips & teeth, nl nasal mucosa & septum Neck: non-tender, supple Respiratory: clear to auscultation, normal air movement Cardiovascular: nl pulses, regular rate and rhythm Gastrointestinal: bowel sounds, non-tender, soft Results Result Diagram: 06/09/17 0816 06/09/17 0816 Results 24 hrs Laboratory Tests Test 06/09/17 08:16 White Blood Count 8.1 Red Blood Count 3.06 L Hemoglobin 8.9 L Hematocrit 27.6 L Mean Corpuscular Volume 90.2 Mean Corpuscular Hemoglobin 29.1 Mean Corpuscular Hemoglobin Concent 32.2 Red Cell Distribution Width 19.3 H Platelet Count 104 #L Mean Platelet Volume 10.3 Neutrophils % 69.6 Lymphocytes % 10.9 L Monocytes % 8.2 Eosinophils % 10.3 H Basophils % 0.6 Nucleated Red Blood Cells % 0.0 Neutrophils # 5.7 Lymphocytes # 0.9 Monocytes # 0.7 Eosinophils # 0.8 H Basophils # 0.1 Nucleated Red Blood Cells # 0.0 Sodium Level 139 Potassium Level 3.7 Chloride Level 107 Carbon Dioxide Level 28 Anion Gap 8 Blood Urea Nitrogen 42 #H Creatinine 2.96 H Glucose Level 150 Calcium Level 7.2 L Medications Medications Current Medications Ondansetron HCl (Zofran Inj) 4 mg Q6H PRN IV NAUSEA AND/OR VOMITING Last administered on 06/06/17 20:05; Admin Dose 4 MG; Start 06/05/17 at 14:00 Acetaminophen (Tylenol Tab) 650 mg Q6H PRN PO PAIN LEVEL 1-3 OR FEVER Last administered on 06/05/17 23:09; Admin Dose 650 MG; Start 06/05/17 at 14:00 Acetaminophen/ Hydrocodone Bitart ([place] (5/325)) 1 tab Q6H PRN PO MODERATE PAIN LEVEL 4-6; Start 06/05/17 at 14:00 Hydromorphone HCl (Dilaudid) 0.5 mg Q6H PRN IV SEVERE PAIN LEVEL 7-10 Last administered on 06/06/17 20:06; Admin Dose 0.5 MG; Start 06/05/17 at 15:00 Docusate Sodium (Colace) 100 mg Q12H PRN PO CONSTIPATION; Start 06/05/17 at 14: 00 Magnesium Hydroxide (Milk Of Mag) 30 ml DAILY PRN PO CONSTIPATION; Start at 14:00 Sodium Biphosphate/ Sodium Phosphate 133 ml 133 ml DAILY PRN [place] CONSTIPATION; Start 06/05/17 at 14:00 Sodium Chloride (1/2 NS) 1,000 ml @ 75 mls/hr [id number] IV Last administered on 06/06/17 01:00; Admin Dose 75 MLS/HR; Start 06/05/17 at 13:38; Status Future Hold Lorazepam 0.5 mg 0.5 mg Q6H PRN PO ANXIETY; Start 06/05/17 at 14:00 Piperacillin Sod/ Tazobactam Sod (Zosyn 2.25gm/ 50ml (Pmx)) 50 ml @ 100 mls/hr Q8 IVPB Last administered on 06/09/17 05:44; Admin Dose 100 MLS/HR; Start at 17:00 Vancomycin HCl (Vanco Iv Per Pharmacy) VANCOMYCIN PER PHARMACY NOTE XX ; Start 06/05/17 at 14:00 Hydralazine HCl (Apresoline) 10 mg Q6H PRN IV ELEVATED BLOOD PRESSURE; Start 06/05/17 at 14:00 Nitroglycerin (Nitroglycerin (Sl Tab) 0.4 Mg) 1 tab Q5M PRN SL ANGINA; Start 06/05/17 at 14:00 Folic Acid 1 mg 1 mg DAILY PO Last administered on 06/08/17 09:39; Admin Dose 1 MG; Start 06/06/17 at 09:00 Norepinephrine/ Dextrose (Levophed/D5W) 500 ml @ 0.93 mls/hr TITRATE IV Last administered on 06/09/17 03:57; Admin Dose 0.93 MLS/HR; Start 06/05/17 at 14: 00 Miscellaneous Information (Pending Santyl Order For Wound Care) This patient badillo... PRN PRN XX WOUND CARE; Start 06/06/17 at 01:30 Collagenase (Santyl) 1 applic DAILY TOP Last administered on 06/09/17 11:08; Admin Dose 1 APPLIC; Start 06/06/17 at 15:30 Pantoprazole (Protonix Iv) 40 mg BID@06,18 IV Last administered on 06/09/17 05:44; Admin Dose 40 MG; Start 06/07/17 at 06:00 Amiodarone HCl 200 mg 200 mg DAILY PO Last administered on 06/09/17 11:08; Admin Dose 200 MG; Start 06/07/17 at 09:00 Vancomycin HCl (Vancocin) 250 ml @ 125 mls/hr Q96H IVPB Last administered on 06/08/17 19:28; Admin Dose 125 MLS/HR; Start 06/08/17 at 20:00 TYLER STANTON MD Jun 09, 2017 12:13
--- NOTE | 2017-06-09 12:36 | PN ---
Date/Time of Note Date/Time of Note DATE: 06/09/17 TIME: 12:30 Assessment/Plan VTE Prophylaxis VTE Prophylaxis Intervention: contraindicated, SCD's Lines/Catheters IV Catheter Type (from Nrs): PICC Line Central line still needed: Yes Urinary Cath still in place: No Assessment/Plan Chief Complaint/Hosp Course ASSESSMENT AND PLAN: An 89-year-old male coming in with hypotension, tachypnea , tachycardia, hypoxia, after getting partial dialysis performed today, with again septic shock. 1. Septic shock- leukocytosis still present, but slowly trending down. He was recently treated on last admission last month for bacteremia. + tachypnea, as well. He did receive BiPAP initially in the ER on this admission, chest x- ray shows some infiltrates, unclear source of septic shock, possibly secondary to upper respiratory infection. His lactic acid was also elevated, but also trending down. - continue ICU care. - IV fluids, continue pressor support-try to wean down as tolerated - continue broad-spectrum antibiotics. Tylenol p.r.n. pain and fevers. - f/u infectious disease consult, pulm rec's. - Follow up final culture results as well. -Elevated troponins likely secondary to combination of patient's sepsis and renal insufficiency, and less likely IA, follow cardiology recommendations, continue to monitor 2. End-stage renal disease on dialysis-have consulted renal with Dr. Carlyn Leblanc, that is his renal doctor, received short session of dialysis yesterday - continue PhosLo, HD per renal recommendations 3. History of anemia of chronic disease- stool occult test is positive. hemoglobin stable after 2 units PRBC given 3 days ago. EGD performed 3 days ago. -Monitor, follow-up GI 4. History of prior stroke. Continue to monitor for now. 5. History of paroxysmal atrial fibrillation. Continue to monitor heart rate on monitoring. 6. Encephalopathy stable. Continue to monitor for now. 7. History of sick sinus syndrome status post pacemaker placement in the past. Again, continue to monitor on telemetry 8. High cholesterol. Continue statin. 9. Gastrointestinal prophylaxis. H2 felix. 10. Deep venous thrombosis prophylaxis. Avoid all anticoagulants given his positive stool occult test - SCDs. Dispo: Palliative care team on the case, patient is DNR. Critical care time spent on patient care today equals 40 minutes. Problems: Subjective 24 Hr Interval Summary Free Text/Dictation Patient received dialysis this morning, on low rate of pressor support still although we are weaning this down. Seen by Exam/Review of Systems Vital Signs Vitals Vital Signs Date Time Temp Pulse Resp B/P Pulse Ox O2 Delivery O2 Flow Rate FiO2 06/09/17 10:15 104 06/09/17 10:15 19 06/09/17 10:00 107/31 87 Nasal Cannula 06/09/17 09:00 2.0 06/09/17 08:00 98.0 06/08/17 05:29 27 Intake and Output 06/08/17 06/08/17 06/09/17 15:00 23:00 07:00 Intake Total 189.92 ml 255.54 ml 222.6 ml Balance 189.92 ml 255.54 ml 222.6 ml Exam GENERAL: Patient lying in bed, lethargic HEENT: Unable to fully assess. NECK: Supple. No thyromegaly. LUNGS: Distant breath sounds bilaterally. CARDIOVASCULAR: S1, S2 heard. No murmurs, rubs, or gallops. ABDOMEN: Soft, nontender, nondistended. Normal bowel sounds. No rebound or guarding, PEG MUSCULOSKELETAL: Normal lower extremities bilaterally. NEUROLOGIC: Unable to fully assess because patient is still lethargic Results Result Diagram: 06/09/17 0816 06/09/17 0816 Results 24 hrs Laboratory Tests Test 06/09/17 08:16 White Blood Count 8.1 Red Blood Count 3.06 L Hemoglobin 8.9 L Hematocrit 27.6 L Mean Corpuscular Volume 90.2 Mean Corpuscular Hemoglobin 29.1 Mean Corpuscular Hemoglobin Concent 32.2 Red Cell Distribution Width 19.3 H Platelet Count 104 #L Mean Platelet Volume 10.3 Neutrophils % 69.6 Lymphocytes % 10.9 L Monocytes % 8.2 Eosinophils % 10.3 H Basophils % 0.6 Nucleated Red Blood Cells % 0.0 Neutrophils # 5.7 Lymphocytes # 0.9 Monocytes # 0.7 Eosinophils # 0.8 H Basophils # 0.1 Nucleated Red Blood Cells # 0.0 Sodium Level 139 Potassium Level 3.7 Chloride Level 107 Carbon Dioxide Level 28 Anion Gap 8 Blood Urea Nitrogen 42 #H Creatinine 2.96 H Glucose Level 150 Calcium Level 7.2 L Medications Medications Current Medications Ondansetron HCl (Zofran Inj) 4 mg Q6H PRN IV NAUSEA AND/OR VOMITING Last administered on 06/06/17 20:05; Admin Dose 4 MG; Start 06/05/17 at 14:00 Acetaminophen (Tylenol Tab) 650 mg Q6H PRN PO PAIN LEVEL 1-3 OR FEVER Last administered on 06/05/17 23:09; Admin Dose 650 MG; Start 06/05/17 at 14:00 Acetaminophen/ Hydrocodone Bitart ([place] (5/325)) 1 tab Q6H PRN PO MODERATE PAIN LEVEL 4-6; Start 06/05/17 at 14:00 Hydromorphone HCl (Dilaudid) 0.5 mg Q6H PRN IV SEVERE PAIN LEVEL 7-10 Last administered on 06/06/17 20:06; Admin Dose 0.5 MG; Start 06/05/17 at 15:00 Docusate Sodium (Colace) 100 mg Q12H PRN PO CONSTIPATION; Start 06/05/17 at 14: 00 Magnesium Hydroxide (Milk Of Mag) 30 ml DAILY PRN PO CONSTIPATION; Start at 14:00 Sodium Biphosphate/ Sodium Phosphate 133 ml 133 ml DAILY PRN [place] CONSTIPATION; Start 06/05/17 at 14:00 Sodium Chloride (1/2 NS) 1,000 ml @ 75 mls/hr [id number] IV Last administered on 06/06/17 01:00; Admin Dose 75 MLS/HR; Start 06/05/17 at 13:38; Status Future Hold Lorazepam 0.5 mg 0.5 mg Q6H PRN PO ANXIETY; Start 06/05/17 at 14:00 Piperacillin Sod/ Tazobactam Sod (Zosyn 2.25gm/ 50ml (Pmx)) 50 ml @ 100 mls/hr Q8 IVPB Last administered on 06/09/17 05:44; Admin Dose 100 MLS/HR; Start at 17:00; Status Future Hold Vancomycin HCl (Vanco Iv Per Pharmacy) VANCOMYCIN PER PHARMACY NOTE XX ; Start 06/05/17 at 14:00 Hydralazine HCl (Apresoline) 10 mg Q6H PRN IV ELEVATED BLOOD PRESSURE; Start 06/05/17 at 14:00 Nitroglycerin (Nitroglycerin (Sl Tab) 0.4 Mg) 1 tab Q5M PRN SL ANGINA; Start 06/05/17 at 14:00 Folic Acid 1 mg 1 mg DAILY PO Last administered on 06/08/17 09:39; Admin Dose 1 MG; Start 06/06/17 at 09:00 Norepinephrine/ Dextrose (Levophed/D5W) 500 ml @ 0.93 mls/hr TITRATE IV Last administered on 06/09/17 03:57; Admin Dose 0.93 MLS/HR; Start 06/05/17 at 14: 00 Miscellaneous Information (Pending Santyl Order For Wound Care) This patient badillo... PRN PRN XX WOUND CARE; Start 06/06/17 at 01:30 Collagenase (Santyl) 1 applic DAILY TOP Last administered on 06/09/17 11:08; Admin Dose 1 APPLIC; Start 06/06/17 at 15:30 Pantoprazole (Protonix Iv) 40 mg BID@06,18 IV Last administered on 06/09/17 05:44; Admin Dose 40 MG; Start 06/07/17 at 06:00 Amiodarone HCl 200 mg 200 mg DAILY PO Last administered on 06/09/17 11:08; Admin Dose 200 MG; Start 06/07/17 at 09:00 Vancomycin HCl (Vancocin) 250 ml @ 125 mls/hr Q96H IVPB Last administered on 06/08/17 19:28; Admin Dose 125 MLS/HR; Start 06/08/17 at 20:00 CARINA LINCOLN 11, 2017 12:36
--- NOTE | 2017-06-09 16:52 | CONS ---
Date/Time of Note Date/Time of Note DATE: 06/09/17 TIME: 16:51 Consult Date/Type/Reason Admit Date/Time Jun 05, 2017 at 16:11 Initial Consult Date 06/06/17 Type of Consultation: ID Objective Vital Signs Date Time Temp Pulse Resp B/P Pulse Ox O2 Delivery O2 Flow Rate FiO2 06/09/17 16:30 79 18 120/45 97 06/09/17 16:00 98.2 Nasal Cannula 06/09/17 13:00 2.0 06/08/17 05:29 27 Intake and Output 06/08/17 06/08/17 06/09/17 15:00 23:00 07:00 Intake Total 189.92 ml 255.54 ml 222.6 ml Balance 189.92 ml 255.54 ml 222.6 ml Results/Medications Result Diagram: 06/09/17 0816 06/09/17 0816 Results 24 hrs Laboratory Tests Test 06/09/17 08:16 White Blood Count 8.1 Red Blood Count 3.06 L Hemoglobin 8.9 L Hematocrit 27.6 L Mean Corpuscular Volume 90.2 Mean Corpuscular Hemoglobin 29.1 Mean Corpuscular Hemoglobin Concent 32.2 Red Cell Distribution Width 19.3 H Platelet Count 104 #L Mean Platelet Volume 10.3 Neutrophils % 69.6 Lymphocytes % 10.9 L Monocytes % 8.2 Eosinophils % 10.3 H Basophils % 0.6 Nucleated Red Blood Cells % 0.0 Neutrophils # 5.7 Lymphocytes # 0.9 Monocytes # 0.7 Eosinophils # 0.8 H Basophils # 0.1 Nucleated Red Blood Cells # 0.0 Sodium Level 139 Potassium Level 3.7 Chloride Level 107 Carbon Dioxide Level 28 Anion Gap 8 Blood Urea Nitrogen 42 #H Creatinine 2.96 H Glucose Level 150 Calcium Level 7.2 L Medications Current Medications Ondansetron HCl (Zofran Inj) 4 mg Q6H PRN IV NAUSEA AND/OR VOMITING Last administered on 06/06/17 20:05; Admin Dose 4 MG; Start 06/05/17 at 14:00 Acetaminophen (Tylenol Tab) 650 mg Q6H PRN PO PAIN LEVEL 1-3 OR FEVER Last administered on 06/05/17 23:09; Admin Dose 650 MG; Start 06/05/17 at 14:00 Acetaminophen/ Hydrocodone Bitart ([place] (5/325)) 1 tab Q6H PRN PO MODERATE PAIN LEVEL 4-6; Start 06/05/17 at 14:00 Hydromorphone HCl (Dilaudid) 0.5 mg Q6H PRN IV SEVERE PAIN LEVEL 7-10 Last administered on 06/06/17 20:06; Admin Dose 0.5 MG; Start 06/05/17 at 15:00 Docusate Sodium (Colace) 100 mg Q12H PRN PO CONSTIPATION; Start 06/05/17 at 14: 00 Magnesium Hydroxide (Milk Of Mag) 30 ml DAILY PRN [place] CONSTIPATION; Start at 14:00 Sodium Biphosphate/ Sodium Phosphate 133 ml 133 ml DAILY PRN [place] CONSTIPATION; Start 06/05/17 at 14:00 Sodium Chloride (1/2 NS) 1,000 ml @ 75 mls/hr [id number] IV Last administered on 06/06/17 01:00; Admin Dose 75 MLS/HR; Start 06/05/17 at 13:38; Status Future Hold Lorazepam 0.5 mg 0.5 mg Q6H PRN PO ANXIETY; Start 06/05/17 at 14:00 Piperacillin Sod/ Tazobactam Sod (Zosyn 2.25gm/ 50ml (Pmx)) 50 ml @ 100 mls/hr Q8 IVPB Last administered on 06/09/17 05:44; Admin Dose 100 MLS/HR; Start at 17:00; Status Future Hold Vancomycin HCl (Vanco Iv Per Pharmacy) VANCOMYCIN PER PHARMACY NOTE XX ; Start 06/05/17 at 14:00 Hydralazine HCl (Apresoline) 10 mg Q6H PRN IV ELEVATED BLOOD PRESSURE; Start 06/05/17 at 14:00 Nitroglycerin (Nitroglycerin (Sl Tab) 0.4 Mg) 1 tab Q5M PRN SL ANGINA; Start 06/05/17 at 14:00 Folic Acid 1 mg 1 mg DAILY PO Last administered on 06/08/17 09:39; Admin Dose 1 MG; Start 06/06/17 at 09:00 Norepinephrine/ Dextrose (Levophed/D5W) 500 ml @ 0.93 mls/hr TITRATE IV Last administered on 06/09/17 03:57; Admin Dose 0.93 MLS/HR; Start 06/05/17 at 14: 00 Miscellaneous Information (Pending Santyl Order For Wound Care) This patient badillo... PRN PRN XX WOUND CARE; Start 06/06/17 at 01:30 Collagenase (Santyl) 1 applic DAILY TOP Last administered on 06/09/17 11:08; Admin Dose 1 APPLIC; Start 06/06/17 at 15:30 Pantoprazole (Protonix Iv) 40 mg BID@06,18 IV Last administered on 06/09/17 05:44; Admin Dose 40 MG; Start 06/07/17 at 06:00 Amiodarone HCl 200 mg 200 mg DAILY PO Last administered on 06/09/17 11:08; Admin Dose 200 MG; Start 06/07/17 at 09:00 Vancomycin HCl (Vancocin) 250 ml @ 125 mls/hr Q96H IVPB Last administered on 06/08/17 19:28; Admin Dose 125 MLS/HR; Start 06/08/17 at 20:00 Assessment/Plan Chief Complaint/Hosp Course SUBJECTIVE: No acute changes. The patient remains obtunded on Levophed drip at 4 mcg/min. He is in no distress, afebrile. MICROBIOLOGY: Blood, urine cultures remain negative. Patient has right IJ permcath and permanent pacemaker. ANTIMICROBIALS: 1. Vancomycin. 2. Zosyn. PHYSICAL EXAMINATION: GENERAL: This is a chronically ill-appearing, elderly man who is lethargic, in no distress. HEENT: Head atraumatic, normocephalic. Sclerae anicteric. Buccal mucosa dry. NECK: Supple. CHEST: Rise symmetrical. Breath sounds diminished to bases. HEART: S1, S2. ABDOMEN: Soft. Bowel tones hypoactive. EXTREMITIES: Without cyanosis. Mottled and cyanotic. ASSESSMENT: 1. Severe sepsis with shock. 2. Pneumonia, possibly ongoing aspiration. 3. [id number] anemia, status post EGD that revealed esophagitis and gastritis. 4. End-stage renal disease, hemodialysis dependent. 5. Coronary artery disease, history of permanent pacemaker. 6. Failure to thrive and dysphagia, status post percutaneous endoscopic gastrostomy. 7. History of enterococcal bacteremia on previous admission. PLAN: Remains on Levophed gtt, will change Zosyn to Amikacin given thrombocytopenia, continue Vanco. staff Problems: JACK CHAN NP Jun 09, 2017 16:52
[2017-06-09] MEDS ORDERED: AMIKACIN IV PER PHARMACY XX SCH (17:00)
[2017-06-09] MEDS ORDERED: AMIKACIN 450 MG in DEXTROSE 5% 100 ML IVPB ONE (18:00)
[2017-06-10] VITALS (23 sets, daily range): BP systolic 79–115; BP diastolic 27–88; PULSE 64–130; RESP 15–26
[2017-06-10 04:43] LABS: BASOPHILS % 0.3 % (0.0-2.0); EOSINOPHILS # 0.7 10^3/ul (0.0-0.5); EOSINOPHILS % 8.5 % (0.0-7.0); HEMATOCRIT 28.3 % (42.0-52.0); HEMOGLOBIN 9.2 g/dl (14.0-18.0); MEAN CORPUSCULAR HEMOGLOBIN 29.9 pg (29.0-33.0); MEAN CORPUSCULAR HGB CONC 32.5 g/dl (32.0-37.0); MEAN CORPUSCULAR VOLUME 91.9 fl (82.0-101.0); MEAN PLATELET VOLUME 10.6 fl (7.4-10.4); MONOCYTE # 1.2 10^3/ul (0.3-0.9); MONOCYTES % 13.6 % (0.0-11.0); NEUTROPHIL # 5.8 10^3/ul (1.6-7.5); NEUTROPHILS % 66.1 % (39.0-77.0); PLATELET COUNT 114 10^3/UL (140-415); RED BLOOD COUNT 3.08 10^6/ul (4.70-6.10); RED CELL DISTRIBUTION WIDTH 19.5 % (11.5-14.5); WHITE BLOOD COUNT 8.8 10^3/ul (4.8-10.8)
[2017-06-10 05:12] LABS: CALCIUM 7.3 mg/dl (8.4-10.2); CREATININE 3.43 mg/dl (0.61-1.24); POTASSIUM 3.7 mmol/L (3.5-5.1)
[2017-06-10] MEDS: CALCIUM ACETATE 667 MG CAP PO SCH ×3 (06:24→17:46)
[2017-06-10] MEDS: PANTOPRAZOLE 40 MG INJ IV SCH ×2 (06:24→17:47)
--- NOTE | 2017-06-10 08:23 | CONS ---
Date/Time of Note Date/Time of Note DATE: 06/10/17 TIME: 08:21 Assessment/Plan Assessment/Plan Additional Assessment/Plan Assessment recommendations; 1. Patient admitted with sepsis and shock with interval improvement. 2. End-stage renal disease, on hemodialysis. 3. Thrombocytopenia. No overt bleeding seen. 4. Possibly some element of aspiration pneumonia. Continue current treatment. Transfer to medical floor. Prognosis is very poor. Consultation Date/Type/Reason Admit Date/Time Jun 05, 2017 at 16:11 Initial Consult Date 06/06/17 Type of Consultation: Pulmonary/critical care 24 HR Interval Summary Free Text/Dictation Patient's condition remains stable. Has been off pressor support. Because of advanced dementia patient remains completely unresponsive. General exam; elderly male, currently in no distress. Non-arousable. Exam/Review of Systems Vital Signs Vitals Vital Signs Date Time Temp Pulse Resp B/P Pulse Ox O2 Delivery O2 Flow Rate FiO2 06/10/17 05:00 93 20 85/35 Room Air 06/10/17 04:00 98.7 97 06/09/17 18:10 2.0 06/08/17 05:29 27 Intake and Output 06/09/17 06/09/17 06/10/17 14:59 22:59 06:59 Intake Total 680.22 ml 163.6 ml 140 ml Output Total 3000 ml Balance -2319.78 ml 163.6 ml 140 ml Exam HEENT exam; supple neck, positive JVD. No lymphadenopathy. Midline trachea. No thyromegaly. Pupils are small bilaterally. Patient is edentulous. Chest exam; diminished but clear breath sounds. S1-S2 audible, no murmurs. Abdomen exam; soft, nondistended. No organomegaly. Bowel sounds audible. Extremity exam; no peripheral edema. EXERCISE SPECIALIST exam; patient remains unresponsive. Results Result Diagram: 06/10/17 0400 06/10/17 0400 Results 24 hrs Laboratory Tests Test 06/10/17 04:00 White Blood Count 8.8 Red Blood Count 3.08 L Hemoglobin 9.2 L Hematocrit 28.3 L Mean Corpuscular Volume 91.9 Mean Corpuscular Hemoglobin 29.9 Mean Corpuscular Hemoglobin Concent 32.5 Red Cell Distribution Width 19.5 H Platelet Count 114 L Mean Platelet Volume 10.6 H Neutrophils % 66.1 Lymphocytes % 11.0 L Monocytes % 13.6 H Eosinophils % 8.5 H Basophils % 0.3 Nucleated Red Blood Cells % 0.0 Neutrophils # 5.8 Lymphocytes # 1.0 Monocytes # 1.2 H Eosinophils # 0.7 H Basophils # 0.0 Nucleated Red Blood Cells # 0.0 Sodium Level 140 Potassium Level 3.7 Chloride Level 106 Carbon Dioxide Level 28 Anion Gap 10 Blood Urea Nitrogen 46 H Creatinine 3.43 H Glucose Level 112 Calcium Level 7.3 L Medications Medications Current Medications Ondansetron HCl (Zofran Inj) 4 mg Q6H PRN IV NAUSEA AND/OR VOMITING Last administered on 06/06/17 20:05; Admin Dose 4 MG; Start 06/05/17 at 14:00 Acetaminophen (Tylenol Tab) 650 mg Q6H PRN PO PAIN LEVEL 1-3 OR FEVER Last administered on 06/05/17 23:09; Admin Dose 650 MG; Start 06/05/17 at 14:00 Acetaminophen/ Hydrocodone Bitart ([place] (5/325)) 1 tab Q6H PRN PO MODERATE PAIN LEVEL 4-6; Start 06/05/17 at 14:00 Hydromorphone HCl (Dilaudid) 0.5 mg Q6H PRN IV SEVERE PAIN LEVEL 7-10 Last administered on 06/06/17 20:06; Admin Dose 0.5 MG; Start 06/05/17 at 15:00 Docusate Sodium (Colace) 100 mg Q12H PRN PO CONSTIPATION; Start 06/05/17 at 14: 00 Magnesium Hydroxide (Milk Of Mag) 30 ml DAILY PRN PO CONSTIPATION; Start at 14:00 Sodium Biphosphate/ Sodium Phosphate 133 ml 133 ml DAILY PRN [place] CONSTIPATION; Start 06/05/17 at 14:00 Sodium Chloride (1/2 NS) 1,000 ml @ 75 mls/hr [id number] IV Last administered on 06/06/17 01:00; Admin Dose 75 MLS/HR; Start 06/05/17 at 13:38; Status Future Hold Lorazepam (Ativan) 0.5 mg Q6H PRN PO ANXIETY; Start 06/05/17 at 14:00 Vancomycin HCl (Vanco Iv Per Pharmacy) VANCOMYCIN PER PHARMACY NOTE XX ; Start 06/05/17 at 14:00 Hydralazine HCl (Apresoline) 10 mg Q6H PRN IV ELEVATED BLOOD PRESSURE; Start 06/05/17 at 14:00 Nitroglycerin (Nitroglycerin (Sl Tab) 0.4 Mg) 1 tab Q5M PRN SL ANGINA; Start 06/05/17 at 14:00 Folic Acid 1 mg 1 mg DAILY PO Last administered on 06/08/17 09:39; Admin Dose 1 MG; Start 06/06/17 at 09:00 Norepinephrine/ Dextrose (Levophed/D5W) 500 ml @ 0.93 mls/hr TITRATE IV Last administered on 06/09/17 03:57; Admin Dose 0.93 MLS/HR; Start 06/05/17 at 14: 00 Miscellaneous Information (Pending Santyl Order For Wound Care) This patient badillo... PRN PRN XX WOUND CARE; Start 06/06/17 at 01:30 Collagenase (Santyl) 1 applic DAILY TOP Last administered on 06/09/17 11:08; Admin Dose 1 APPLIC; Start 06/06/17 at 15:30 Pantoprazole (Protonix Iv) 40 mg BID@06,18 IV Last administered on 06/10/17 06:24; Admin Dose 40 MG; Start 06/07/17 at 06:00 Amiodarone HCl 200 mg 200 mg DAILY PO Last administered on 06/09/17 11:08; Admin Dose 200 MG; Start 06/07/17 at 09:00 Vancomycin HCl (Vancocin) 250 ml @ 125 mls/hr Q96H IVPB Last administered on 06/08/17 19:28; Admin Dose 125 MLS/HR; Start 06/08/17 at 20:00 Amikacin Sulfate (Amikacin Iv Per Pharmacy) AMIKACIN PER PHARMACY NOTE XX ; Start 06/09/17 at 17:00 JOSE MIGUEL NICHOLS Jun 10, 2017 08:23
[2017-06-10] MEDS: COLLAGENASE 30 GM TUBE TOP SCH (08:56)
[2017-06-10] MEDS: FOLIC ACID 1 MG TAB PO SCH (08:56)
[2017-06-10] MEDS: AMIODARONE 200 MG TAB PO SCH (08:57)
--- NOTE | 2017-06-10 09:07 | PN ---
Date/Time of Note Date/Time of Note DATE: 06/10/17 TIME: 08:56 Assessment/Plan VTE Prophylaxis VTE Prophylaxis Intervention: contraindicated, SCD's Lines/Catheters IV Catheter Type (from Nrsg): PICC Line Central line still needed: Yes Urinary Cath still in place: No Assessment/Plan Chief Complaint/Hosp Course ASSESSMENT AND PLAN: An 89-year-old male coming in with hypotension, tachypnea , tachycardia, hypoxia, after getting partial dialysis performed on day of admission, with again septic shock. 1. Septic shock-appears resolved now, off pressors since yesterday, leukocytosis improving now, he was recently treated on last admission last month for bacteremia. + tachypnea, as well. He did receive BiPAP initially in the ER on this admission, chest x-ray shows some infiltrates, unclear source of septic shock, likely secondary to upper respiratory infection/PNA. His lactic acid was also elevated initially, but has trended down now. - IV fluids, off pressor support now - continue broad-spectrum antibiotics per ID, now on amikacin and vancomycin. Tylenol p.r.n. pain and fevers. - f/u infectious disease consult, pulm rec's, palliative care team recommendations - Follow up final culture results as well. - On tube feedings 2. Elevated troponins likely secondary to combination of patient's sepsis and renal insufficiency, and less likely CT. Appears resolving now. - follow cardiology recommendations, continue to monitor 3. End-stage renal disease on dialysis- Dr. Carlyn Leblanc renal doctor on the case, has been receiving intermittent dialysis per renal recommendations this admission - continue PhosLo, HD per renal recommendations 4. History of anemia of chronic disease- stool occult test is positive, patient underwent EGD earlier this admission with gastritis findings. Hemoglobin stable after 2 units PRBC earlier this admission. EGD performed 3 days ago. After speaking with family it was decided not to proceed with colonoscopy at this time. -Monitor, follow-up GI recommendations 5. History of prior stroke. Continue to monitor for now. 6. History of paroxysmal atrial fibrillation. Continue to monitor heart rate on monitoring. 7. History of sick sinus syndrome status post pacemaker placement in the past. Heart rate stable. - Again, continue to monitor on telemetry 8. High cholesterol. Continue statin. 9. Gastrointestinal prophylaxis. H2 felix. 10. Deep venous thrombosis prophylaxis. Avoid all anticoagulants given his positive stool occult test - SCDs. Dispo: Palliative care team on the case, patient is DNR. Critical care time spent on patient care today equals 45 minutes. Problems: Subjective 24 Hr Interval Summary Free Text/Dictation Patient off pressor support now since yesterday, seen by pulmonary team this morning. No acute events overnight. Exam/Review of Systems Vital Signs Vitals Vital Signs Date Time Temp Pulse Resp B/P Pulse Ox O2 Delivery O2 Flow Rate FiO2 06/10/17 05:00 93 20 85/35 Room Air 06/10/17 04:00 98.7 97 06/09/17 18:10 2.0 06/08/17 05:29 27 Intake and Output 06/09/17 06/09/17 06/10/17 14:59 22:59 06:59 Intake Total 680.22 ml 163.6 ml 140 ml Output Total 3000 ml Balance -2319.78 ml 163.6 ml 140 ml Exam GENERAL: Patient lying in bed, lethargic HEENT: Unable to fully assess. NECK: Supple. No thyromegaly. LUNGS: less distant breath sounds bilaterally. CARDIOVASCULAR: S1, S2 heard. No murmurs, rubs, or gallops. ABDOMEN: Soft, nontender, nondistended. Normal bowel sounds. No rebound or guarding, PEG MUSCULOSKELETAL: Normal lower extremities bilaterally. NEUROLOGIC: Unable to fully assess because patient is still lethargic Results Result Diagram: 06/10/17 0400 06/10/17 0400 Results 24 hrs Laboratory Tests Test 06/10/17 04:00 White Blood Count 8.8 Red Blood Count 3.08 L Hemoglobin 9.2 L Hematocrit 28.3 L Mean Corpuscular Volume 91.9 Mean Corpuscular Hemoglobin 29.9 Mean Corpuscular Hemoglobin Concent 32.5 Red Cell Distribution Width 19.5 H Platelet Count 114 L Mean Platelet Volume 10.6 H Neutrophils % 66.1 Lymphocytes % 11.0 L Monocytes % 13.6 H Eosinophils % 8.5 H Basophils % 0.3 Nucleated Red Blood Cells % 0.0 Neutrophils # 5.8 Lymphocytes # 1.0 Monocytes # 1.2 H Eosinophils # 0.7 H Basophils # 0.0 Nucleated Red Blood Cells # 0.0 Sodium Level 140 Potassium Level 3.7 Chloride Level 106 Carbon Dioxide Level 28 Anion Gap 10 Blood Urea Nitrogen 46 H Creatinine 3.43 H Glucose Level 112 Calcium Level 7.3 L Medications Medications Current Medications Ondansetron HCl (Zofran Inj) 4 mg Q6H PRN IV NAUSEA AND/OR VOMITING Last administered on 06/06/17 20:05; Admin Dose 4 MG; Start 06/05/17 at 14:00 Acetaminophen (Tylenol Tab) 650 mg Q6H PRN PO PAIN LEVEL 1-3 OR FEVER Last administered on 06/05/17 23:09; Admin Dose 650 MG; Start 06/05/17 at 14:00 Acetaminophen/ Hydrocodone Bitart ([place] (5/325)) 1 tab Q6H PRN PO MODERATE PAIN LEVEL 4-6; Start 06/05/17 at 14:00 Hydromorphone HCl (Dilaudid) 0.5 mg Q6H PRN IV SEVERE PAIN LEVEL 7-10 Last administered on 06/06/17 20:06; Admin Dose 0.5 MG; Start 06/05/17 at 15:00 Docusate Sodium (Colace) 100 mg Q12H PRN PO CONSTIPATION; Start 06/05/17 at 14: 00 Magnesium Hydroxide (Milk Of Mag) 30 ml DAILY PRN PO CONSTIPATION; Start at 14:00 Sodium Biphosphate/ Sodium Phosphate 133 ml 133 ml DAILY PRN [place] CONSTIPATION; Start 06/05/17 at 14:00 Sodium Chloride (1/2 NS) 1,000 ml @ 75 mls/hr [id number] IV Last administered on 06/06/17 01:00; Admin Dose 75 MLS/HR; Start 06/05/17 at 13:38; Status Future Hold Lorazepam (Ativan) 0.5 mg Q6H PRN PO ANXIETY; Start 06/05/17 at 14:00 Vancomycin HCl (Vanco Iv Per Pharmacy) VANCOMYCIN PER PHARMACY NOTE XX ; Start 06/05/17 at 14:00 Hydralazine HCl (Apresoline) 10 mg Q6H PRN IV ELEVATED BLOOD PRESSURE; Start 06/05/17 at 14:00 Nitroglycerin (Nitroglycerin (Sl Tab) 0.4 Mg) 1 tab Q5M PRN SL ANGINA; Start 06/05/17 at 14:00 Folic Acid 1 mg 1 mg DAILY PO Last administered on 06/08/17 09:39; Admin Dose 1 MG; Start 06/06/17 at 09:00 Norepinephrine/ Dextrose (Levophed/D5W) 500 ml @ 0.93 mls/hr TITRATE IV Last administered on 06/09/17 03:57; Admin Dose 0.93 MLS/HR; Start 06/05/17 at 14: 00 Miscellaneous Information (Pending Santyl Order For Wound Care) This patient badillo... PRN PRN XX WOUND CARE; Start 06/06/17 at 01:30 Collagenase (Santyl) 1 applic DAILY TOP Last administered on 06/09/17 11:08; Admin Dose 1 APPLIC; Start 06/06/17 at 15:30 Pantoprazole (Protonix Iv) 40 mg BID@06,18 IV Last administered on 06/10/17 06:24; Admin Dose 40 MG; Start 06/07/17 at 06:00 Amiodarone HCl 200 mg 200 mg DAILY PO Last administered on 06/09/17 11:08; Admin Dose 200 MG; Start 06/07/17 at 09:00 Vancomycin HCl (Vancocin) 250 ml @ 125 mls/hr Q96H IVPB Last administered on 06/08/17 19:28; Admin Dose 125 MLS/HR; Start 06/08/17 at 20:00 Amikacin Sulfate (Amikacin Iv Per Pharmacy) AMIKACIN PER PHARMACY NOTE XX ; Start 06/09/17 at 17:00 CARINA LINCOLN Jun 10, 2017 09:06
[2017-06-10] MEDS ORDERED: AMIKACIN 300 MG in DEXTROSE 5% 100 ML IVPB SCH (10:00)
--- NOTE | 2017-06-10 10:47 | CONS ---
Date/Time of Note Date/Time of Note DATE: 06/10/17 TIME: 10:45 Assessment/Plan Assessment/Plan Additional Assessment/Plan Septic shock, currently off IV pressor Labile blood pressure Preserved ejection fraction Acute kidney injury with history of CKD Mild to moderate aortic stenosis -Patient currently off IV pressor, would continue to hold any antihypertensives at the current time given blood pressure still labile. Antibiotics as per primary team. Continue telemetry monitoring. Consultation Date/Type/Reason Admit Date/Time Jun 05, 2017 at 16:11 Initial Consult Date 06/06/17 Type of Consultation: cv 24 HR Interval Summary Free Text/Dictation Patient seen and examined, no new cardiac issues as per nursing staff. IV pressor has been off since yesterday Exam/Review of Systems Vital Signs Vitals Vital Signs Date Time Temp Pulse Resp B/P Pulse Ox O2 Delivery O2 Flow Rate FiO2 06/10/17 08:00 64 06/10/17 05:00 20 85/35 Room Air 06/10/17 04:00 98.7 97 06/09/17 18:10 2.0 06/08/17 05:29 27 Intake and Output 06/09/17 06/09/17 06/10/17 15:00 23:00 07:00 Intake Total 680.22 ml 161.8 ml 120 ml Output Total 3000 ml Balance -2319.78 ml 161.8 ml 120 ml Exam Sleeping but arousable, no apparent distress Head: normocephalic Respiratory: other (Coarse breath sounds bilaterally, no wheezing) Cardiovascular: other (S1-S2 heard), regular rate and rhythm, systolic murmur Gastrointestinal: bowel sounds, non-tender, soft Extremities: edema Results Result Diagram: 06/10/170 06/10/17 0400 Results 24 hrs Laboratory Tests Test 06/10/17 04:00 White Blood Count 8.8 Red Blood Count 3.08 L Hemoglobin 9.2 L Hematocrit 28.3 L Mean Corpuscular Volume 91.9 Mean Corpuscular Hemoglobin 29.9 Mean Corpuscular Hemoglobin Concent 32.5 Red Cell Distribution Width 19.5 H Platelet Count 114 L Mean Platelet Volume 10.6 H Neutrophils % 66.1 Lymphocytes % 11.0 L Monocytes % 13.6 H Eosinophils % 8.5 H Basophils % 0.3 Nucleated Red Blood Cells % 0.0 Neutrophils # 5.8 Lymphocytes # 1.0 Monocytes # 1.2 H Eosinophils # 0.7 H Basophils # 0.0 Nucleated Red Blood Cells # 0.0 Sodium Level 140 Potassium Level 3.7 Chloride Level 106 Carbon Dioxide Level 28 Anion Gap 10 Blood Urea Nitrogen 46 H Creatinine 3.43 H Glucose Level 112 Calcium Level 7.3 L Medications Medications Current Medications Ondansetron HCl (Zofran Inj) 4 mg Q6H PRN IV NAUSEA AND/OR VOMITING Last administered on 06/06/17 20:05; Admin Dose 4 MG; Start 06/05/17 at 14:00 Acetaminophen (Tylenol Tab) 650 mg Q6H PRN PO PAIN LEVEL 1-3 OR FEVER Last administered on 06/05/17 23:09; Admin Dose 650 MG; Start 06/05/17 at 14:00 Acetaminophen/ Hydrocodone Bitart ([place] (5/325)) 1 tab Q6H PRN PO MODERATE PAIN LEVEL 4-6; Start 06/05/17 at 14:00 Hydromorphone HCl (Dilaudid) 0.5 mg Q6H PRN IV SEVERE PAIN LEVEL 7-10 Last administered on 06/06/17 20:06; Admin Dose 0.5 MG; Start 06/05/17 at 15:00 Docusate Sodium (Colace) 100 mg Q12H PRN PO CONSTIPATION; Start 06/05/17 at 14: 00 Magnesium Hydroxide (Milk Of Mag) 30 ml DAILY PRN PO CONSTIPATION; Start at 14:00 Sodium Biphosphate/ Sodium Phosphate 133 ml 133 ml DAILY PRN [place] CONSTIPATION; Start 06/05/17 at 14:00 Sodium Chloride (1/2 NS) 1,000 ml @ 75 mls/hr [id number] IV Last administered on 06/06/17 01:00; Admin Dose 75 MLS/HR; Start 06/05/17 at 13:38; Status Future Hold Lorazepam (Ativan) 0.5 mg Q6H PRN PO ANXIETY; Start 06/05/17 at 14:00 Vancomycin HCl (Vanco Iv Per Pharmacy) VANCOMYCIN PER PHARMACY NOTE XX ; Start 06/05/17 at 14:00 Hydralazine HCl (Apresoline) 10 mg Q6H PRN IV ELEVATED BLOOD PRESSURE; Start 06/05/17 at 14:00 Nitroglycerin (Nitroglycerin (Sl Tab) 0.4 Mg) 1 tab Q5M PRN SL ANGINA; Start 06/05/17 at 14:00 Folic Acid 1 mg 1 mg DAILY PO Last administered on 06/10/17 08:56; Admin Dose 1 MG; Start 06/06/17 at 09:00 Norepinephrine/ Dextrose (Levophed/D5W) 500 ml @ 0.93 mls/hr TITRATE IV Last administered on 06/09/17 03:57; Admin Dose 0.93 MLS/HR; Start 06/05/17 at 14: 00 Miscellaneous Information (Pending Santyl Order For Wound Care) This patient badillo... PRN PRN XX WOUND CARE; Start 06/06/17 at 01:30 Collagenase (Santyl) 1 applic DAILY TOP Last administered on 06/10/17 08:56; Admin Dose 1 APPLIC; Start 06/06/17 at 15:30 Pantoprazole (Protonix Iv) 40 mg BID@06,18 IV Last administered on 06/10/17 06:24; Admin Dose 40 MG; Start 06/07/17 at 06:00 Amiodarone HCl 200 mg 200 mg DAILY PO Last administered on 06/09/17 11:08; Admin Dose 200 MG; Start 06/07/17 at 09:00 Vancomycin HCl (Vancocin) 250 ml @ 125 mls/hr Q96H IVPB Last administered on 06/08/17 19:28; Admin Dose 125 MLS/HR; Start 06/08/17 at 20:00 Amikacin Sulfate (Amikacin Iv Per Pharmacy) AMIKACIN PER PHARMACY NOTE XX ; Start 06/09/17 at 17:00 Alberto Good DO Jun 10, 2017 10:47
--- NOTE | 2017-06-10 16:46 | CONS ---
Date/Time of Note Date/Time of Note DATE: 06/10/17 TIME: 16:45 Consult Date/Type/Reason Admit Date/Time Jun 05, 2017 at 16:11 Initial Consult Date 06/06/17 Type of Consultation: ID Objective Vital Signs Date Time Temp Pulse Resp B/P Pulse Ox O2 Delivery O2 Flow Rate FiO2 06/10/17 16:43 95 06/10/17 16:00 19 107/33 100 06/10/17 12:00 97.5 06/10/17 07:00 Room Air 06/09/17 18:10 2.0 06/08/17 05:29 27 Intake and Output 06/09/17 06/09/17 06/10/17 14:59 22:59 06:59 Intake Total 680.22 ml 163.6 ml 140 ml Output Total 3000 ml Balance -2319.78 ml 163.6 ml 140 ml Results/Medications Result Diagram: 06/10/17 0400 06/10/17 0400 Results 24 hrs Laboratory Tests Test 06/10/17 04:00 White Blood Count 8.8 Red Blood Count 3.08 L Hemoglobin 9.2 L Hematocrit 28.3 L Mean Corpuscular Volume 91.9 Mean Corpuscular Hemoglobin 29.9 Mean Corpuscular Hemoglobin Concent 32.5 Red Cell Distribution Width 19.5 H Platelet Count 114 L Mean Platelet Volume 10.6 H Neutrophils % 66.1 Lymphocytes % 11.0 L Monocytes % 13.6 H Eosinophils % 8.5 H Basophils % 0.3 Nucleated Red Blood Cells % 0.0 Neutrophils # 5.8 Lymphocytes # 1.0 Monocytes # 1.2 H Eosinophils # 0.7 H Basophils # 0.0 Nucleated Red Blood Cells # 0.0 Sodium Level 140 Potassium Level 3.7 Chloride Level 106 Carbon Dioxide Level 28 Anion Gap 10 Blood Urea Nitrogen 46 H Creatinine 3.43 H Glucose Level 112 Calcium Level 7.3 L Medications Current Medications Ondansetron HCl (Zofran Inj) 4 mg Q6H PRN IV NAUSEA AND/OR VOMITING Last administered on 06/06/17 20:05; Admin Dose 4 MG; Start 06/05/17 at 14:00 Acetaminophen (Tylenol Tab) 650 mg Q6H PRN PO PAIN LEVEL 1-3 OR FEVER Last administered on 06/05/17 23:09; Admin Dose 650 MG; Start 06/05/17 at 14:00 Acetaminophen/ Hydrocodone Bitart ([place] (5/325)) 1 tab Q6H PRN PO MODERATE PAIN LEVEL 4-6; Start 06/05/17 at 14:00 Hydromorphone HCl (Dilaudid) 0.5 mg Q6H PRN IV SEVERE PAIN LEVEL 7-10 Last administered on 06/06/17 20:06; Admin Dose 0.5 MG; Start 06/05/17 at 15:00 Docusate Sodium (Colace) 100 mg Q12H PRN PO CONSTIPATION; Start 06/05/17 at 14: 00 Magnesium Hydroxide (Milk Of Mag) 30 ml DAILY PRN PO CONSTIPATION; Start at 14:00 Sodium Biphosphate/ Sodium Phosphate (Fleet Enema) 133 ml DAILY PRN [place] CONSTIPATION; Start 06/05/17 at 14:00 Lorazepam (Ativan) 0.5 mg Q6H PRN PO ANXIETY; Start 06/05/17 at 14:00 Vancomycin HCl (Vanco Iv Per Pharmacy) VANCOMYCIN PER PHARMACY NOTE XX ; Start 06/05/17 at 14:00 Hydralazine HCl (Apresoline) 10 mg Q6H PRN IV ELEVATED BLOOD PRESSURE; Start 06/05/17 at 14:00 Nitroglycerin (Nitroglycerin (Sl Tab) 0.4 Mg) 1 tab Q5M PRN SL ANGINA; Start 06/05/17 at 14:00 Folic Acid (Folic Acid) 1 mg DAILY PO Last administered on 06/10/17 08:56; Admin Dose 1 MG; Start 06/06/17 at 09:00 Miscellaneous Information (Pending Santyl Order For Wound Care) This patient badillo... PRN PRN XX WOUND CARE; Start 06/06/17 at 01:30 Collagenase (Santyl) 1 applic DAILY TOP Last administered on 06/10/17 08:56; Admin Dose 1 APPLIC; Start 06/06/17 at 15:30 Pantoprazole (Protonix Iv) 40 mg BID@,18 IV Last administered on 06/10/17 06:24; Admin Dose 40 MG; Start 06/07/17 at 06:00 Amiodarone HCl 200 mg 200 mg DAILY PO Last administered on 06/09/17 11:08; Admin Dose 200 MG; Start 06/07/17 at 09:00 Vancomycin HCl (Vancocin) 250 ml @ 125 mls/hr Q96H IVPB Last administered on 06/08/17t 19:28; Admin Dose 125 MLS/HR; Start 06/08/17 at 20:00 Amikacin Sulfate (Amikacin Iv Per Pharmacy) AMIKACIN PER PHARMACY NOTE XX ; Start 06/09/17 at 17:00 Midodrine (Proamatine) 5 mg BID@09,17 NGT ; Start 06/10/17 at 17:00 Assessment/Plan Chief Complaint/Hosp Course SUBJECTIVE: No acute changes. The patient remains lethargic, Levophed gtt off. He is in no distress, afebrile. MICROBIOLOGY: Blood, urine cultures remain negative. Patient has right IJ permcath, PICC and permanent pacemaker. ANTIMICROBIALS: 1. Vancomycin. 2. Amikacin. PHYSICAL EXAMINATION: GENERAL: This is a chronically ill-appearing, elderly man who is lethargic, in no distress. HEENT: Head atraumatic, normocephalic. Sclerae anicteric. Buccal mucosa dry. NECK: Supple. CHEST: Rise symmetrical. Breath sounds diminished to bases. HEART: S1, S2. ABDOMEN: Soft. Bowel tones hypoactive. EXTREMITIES: Without cyanosis. Mottled and cyanotic. ASSESSMENT: 1. Severe sepsis with shock. 2. Pneumonia, possibly ongoing aspiration. 3. [id number] anemia, status post EGD that revealed esophagitis and gastritis. 4. End-stage renal disease, hemodialysis dependent. 5. Coronary artery disease, history of permanent pacemaker. 6. Failure to thrive and dysphagia, status post percutaneous endoscopic gastrostomy. 7. History of enterococcal bacteremia on previous admission. PLAN: Stable off pressors, continue abx, aspiration precautions. staff Problems: JACK CHAN NP Jun 10, 2017 16:46
[2017-06-10] MEDS: MIDODRINE 5 MG TAB NGT SCH (17:47)
--- NOTE | 2017-06-10 22:13 | CONS ---
Date/Time of Note Date/Time of Note DATE: 06/10/17 TIME: 22:11 Consult Date/Type/Reason Admit Date/Time Jun 05, 2017 at 16:11 Initial Consult Date 06/06/17 Type of Consultation: ID Subjective patient does not talk much he has a G tube BP is a bit low so i ordered Midodrien Objective will plan dialysis FATOU a bit better PEG tueb feeds tocov Vital Signs Date Time Temp Pulse Resp B/P Pulse Ox O2 Delivery O2 Flow Rate FiO2 06/10/17 21:07 97 4.0 33 06/10/17 20:26 98.4 94 20 94/44 06/10/17 16:30 Nasal Cannula Intake and Output 06/09/17 06/09/17 06/10/17 15:00 23:00 07:00 Intake Total 680.22 ml 161.8 ml 120 ml Output Total 3000 ml Balance -2319.78 ml 161.8 ml 120 ml Results/Medications Result Diagram: 06/10/17 0400 06/10/17 0400 Results 24 hrs Laboratory Tests Test 06/10/17 04:00 White Blood Count 8.8 Red Blood Count 3.08 L Hemoglobin 9.2 L Hematocrit 28.3 L Mean Corpuscular Volume 91.9 Mean Corpuscular Hemoglobin 29.9 Mean Corpuscular Hemoglobin Concent 32.5 Red Cell Distribution Width 19.5 H Platelet Count 114 L Mean Platelet Volume 10.6 H Neutrophils % 66.1 Lymphocytes % 11.0 L Monocytes % 13.6 H Eosinophils % 8.5 H Basophils % 0.3 Nucleated Red Blood Cells % 0.0 Neutrophils # 5.8 Lymphocytes # 1.0 Monocytes # 1.2 H Eosinophils # 0.7 H Basophils # 0.0 Nucleated Red Blood Cells # 0.0 Sodium Level 140 Potassium Level 3.7 Chloride Level 106 Carbon Dioxide Level 28 Anion Gap 10 Blood Urea Nitrogen 46 H Creatinine 3.43 H Glucose Level 112 Calcium Level 7.3 L Medications Current Medications Ondansetron HCl (Zofran Inj) 4 mg Q6H PRN IV NAUSEA AND/OR VOMITING Last administered on 06/06/17 20:05; Admin Dose 4 MG; Start 06/05/17 at 14:00 Acetaminophen (Tylenol Tab) 650 mg Q6H PRN PO PAIN LEVEL 1-3 OR FEVER Last administered on 06/05/17 23:09; Admin Dose 650 MG; Start 06/05/17 at 14:00 Acetaminophen/ Hydrocodone Bitart ([place] (5/325)) 1 tab Q6H PRN PO MODERATE PAIN LEVEL 4-6; Start 06/05/17 at 14:00 Hydromorphone HCl (Dilaudid) 0.5 mg Q6H PRN IV SEVERE PAIN LEVEL 7-10 Last administered on 06/06/17 20:06; Admin Dose 0.5 MG; Start 06/05/17 at 15:00 Docusate Sodium (Colace) 100 mg Q12H PRN PO CONSTIPATION; Start 06/05/17 at 14: 00 Magnesium Hydroxide (Milk Of Mag) 30 ml DAILY PRN PO CONSTIPATION; Start at 14:00 Sodium Biphosphate/ Sodium Phosphate (Fleet Enema) 133 ml DAILY PRN [place] CONSTIPATION; Start 06/05/17 at 14:00 Lorazepam (Ativan) 0.5 mg Q6H PRN PO ANXIETY; Start 06/05/17 at 14:00 Vancomycin HCl (Vanco Iv Per Pharmacy) VANCOMYCIN PER PHARMACY NOTE XX ; Start 06/05/17 at 14:00 Hydralazine HCl (Apresoline) 10 mg Q6H PRN IV ELEVATED BLOOD PRESSURE; Start 06/05/17 at 14:00 Nitroglycerin (Nitroglycerin (Sl Tab) 0.4 Mg) 1 tab Q5M PRN SL ANGINA; Start 06/05/17 at 14:00 Folic Acid (Folic Acid) 1 mg DAILY PO Last administered on 06/10/17 08:56; Admin Dose 1 MG; Start 06/06/17 at 09:00 Miscellaneous Information (Pending Santyl Order For Wound Care) This patient badillo... PRN PRN XX WOUND CARE; Start 06/06/17 at 01:30 Collagenase (Santyl) 1 applic DAILY TOP Last administered on 06/10/17 08:56; Admin Dose 1 APPLIC; Start 06/06/17 at 15:30 Amiodarone HCl 200 mg 200 mg DAILY PO Last administered on 06/09/17 11:08; Admin Dose 200 MG; Start 06/07/17 at 09:00 Vancomycin HCl (Vancocin) 250 ml @ 125 mls/hr Q96H IVPB Last administered on 06/08/17 19:28; Admin Dose 125 MLS/HR; Start 06/08/17 at 20:00 Amikacin Sulfate (Amikacin Iv Per Pharmacy) AMIKACIN PER PHARMACY NOTE XX ; Start 06/09/17 at 17:00 Midodrine (Proamatine) 5 mg BID@ NGT Last administered on 06/10/17 17:47 ; Admin Dose 5 MG; Start 06/10/17 at 17:00 Lansoprazole (Prevacid) 30 mg BID@ GTB ; Start 06/11/17 at 06:00 PILI SUERO MD Jun 10, 2017 22:13
--- NOTE | 2017-06-10 22:15 | CONS ---
Date/Time of Note Date/Time of Note DATE: 06/10/17 TIME: 22:14 Consult Date/Type/Reason Admit Date/Time Jun 05, 2017 at 16:11 Initial Consult Date 06/06/17 Type of Consultation: ID Objective Vital Signs Date Time Temp Pulse Resp B/P Pulse Ox O2 Delivery O2 Flow Rate FiO2 06/10/17 21:07 97 4.0 33 06/10/17 20:26 98.4 94 20 94/44 06/10/17 16:30 Nasal Cannula Intake and Output 06/09/17 06/09/17 06/10/17 15:00 23:00 07:00 Intake Total 680.22 ml 161.8 ml 120 ml Output Total 3000 ml Balance -2319.78 ml 161.8 ml 120 ml Results/Medications Result Diagram: 06/10/17 0400 06/10/17 0400 Results 24 hrs Laboratory Tests Test 06/10/17 04:00 White Blood Count 8.8 Red Blood Count 3.08 L Hemoglobin 9.2 L Hematocrit 28.3 L Mean Corpuscular Volume 91.9 Mean Corpuscular Hemoglobin 29.9 Mean Corpuscular Hemoglobin Concent 32.5 Red Cell Distribution Width 19.5 H Platelet Count 114 L Mean Platelet Volume 10.6 H Neutrophils % 66.1 Lymphocytes % 11.0 L Monocytes % 13.6 H Eosinophils % 8.5 H Basophils % 0.3 Nucleated Red Blood Cells % 0.0 Neutrophils # 5.8 Lymphocytes # 1.0 Monocytes # 1.2 H Eosinophils # 0.7 H Basophils # 0.0 Nucleated Red Blood Cells # 0.0 Sodium Level 140 Potassium Level 3.7 Chloride Level 106 Carbon Dioxide Level 28 Anion Gap 10 Blood Urea Nitrogen 46 H Creatinine 3.43 H Glucose Level 112 Calcium Level 7.3 L Medications Current Medications Ondansetron HCl (Zofran Inj) 4 mg Q6H PRN IV NAUSEA AND/OR VOMITING Last administered on 06/06/17 20:05; Admin Dose 4 MG; Start 06/05/17 at 14:00 Acetaminophen (Tylenol Tab) 650 mg Q6H PRN PO PAIN LEVEL 1-3 OR FEVER Last administered on 06/05/17 23:09; Admin Dose 650 MG; Start 06/05/17 at 14:00 Acetaminophen/ Hydrocodone Bitart ([place] (5/325)) 1 tab Q6H PRN PO MODERATE PAIN LEVEL 4-6; Start 06/05/17 at 14:00 Hydromorphone HCl (Dilaudid) 0.5 mg Q6H PRN IV SEVERE PAIN LEVEL 7-10 Last administered on 06/06/17 20:06; Admin Dose 0.5 MG; Start 06/05/17 at 15:00 Docusate Sodium (Colace) 100 mg Q12H PRN PO CONSTIPATION; Start 06/05/17 at 14: 00 Magnesium Hydroxide (Milk Of Mag) 30 ml DAILY PRN PO CONSTIPATION; Start at 14:00 Sodium Biphosphate/ Sodium Phosphate (Fleet Enema) 133 ml DAILY PRN [place] CONSTIPATION; Start 06/05/17 at 14:00 Lorazepam (Ativan) 0.5 mg Q6H PRN PO ANXIETY; Start 06/05/17 at 14:00 Vancomycin HCl (Vanco Iv Per Pharmacy) VANCOMYCIN PER PHARMACY NOTE XX ; Start 06/05/17 at 14:00 Hydralazine HCl (Apresoline) 10 mg Q6H PRN IV ELEVATED BLOOD PRESSURE; Start 06/05/17 at 14:00 Nitroglycerin (Nitroglycerin (Sl Tab) 0.4 Mg) 1 tab Q5M PRN SL ANGINA; Start 06/05/17 at 14:00 Folic Acid (Folic Acid) 1 mg DAILY PO Last administered on 06/10/17 08:56; Admin Dose 1 MG; Start 06/06/17 at 09:00 Miscellaneous Information (Pending Santyl Order For Wound Care) This patient badillo... PRN PRN XX WOUND CARE; Start 06/06/17 at 01:30 Collagenase (Santyl) 1 applic DAILY TOP Last administered on 06/10/17 08:56; Admin Dose 1 APPLIC; Start 06/06/17 at 15:30 Amiodarone HCl 200 mg 200 mg DAILY PO Last administered on 06/09/17 11:08; Admin Dose 200 MG; Start 06/07/17 at 09:00 Vancomycin HCl (Vancocin) 250 ml @ 125 mls/hr Q96H IVPB Last administered on 06/08/17 19:28; Admin Dose 125 MLS/HR; Start 06/08/17 at 20:00 Amikacin Sulfate (Amikacin Iv Per Pharmacy) AMIKACIN PER PHARMACY NOTE XX ; Start 06/09/17 at 17:00 Midodrine (Proamatine) 5 mg BID@ NGT Last administered on 06/10/17t 17:47 ; Admin Dose 5 MG; Start 06/10/17 at 17:00 Lansoprazole (Prevacid) 30 mg BID@ GTB ; Start 06/11/17 at 06:00 Assessment/Plan Additional Assessment/Plan continue tube feeds dialysis per schedu;e mididrine overall poor prognissi PILI SUERO MD Jun 10, 2017 22:15
[2017-06-11] VITALS (10 sets, daily range): BP systolic 110–126; BP diastolic 53–63; PULSE 84–118; RESP 19–25
[2017-06-11] MEDS: LANSOPRAZOLE 30 MG CAP GTB SCH ×2 (05:14→17:29)
[2017-06-11] MEDS: ALBUTEROL/IPRATROPIUM (NEB) 3 ML AMP HHN PRN ×3 (06:16→20:24)
[2017-06-11 07:04] LABS: ABNORMAL IP MESSAGE 1; BASOPHIL # 0.1 10^3/ul (0.0-0.1); BASOPHILS % 0.4 % (0.0-2.0); EOSINOPHILS # 0.6 10^3/ul (0.0-0.5); EOSINOPHILS % 5.3 % (0.0-7.0); HEMATOCRIT 30.9 % (42.0-52.0); HEMOGLOBIN 9.9 g/dl (14.0-18.0); LYMPHOCYTES # 1.8 10^3/ul (0.8-2.9); LYMPHOCYTES % 15.7 % (15.0-51.0); MEAN CORPUSCULAR HEMOGLOBIN 29.7 pg (29.0-33.0); MEAN CORPUSCULAR VOLUME 92.8 fl (82.0-101.0); MEAN PLATELET VOLUME 10.8 fl (7.4-10.4); MONOCYTE # 1.6 10^3/ul (0.3-0.9); MONOCYTES % 14.3 % (0.0-11.0); NEUTROPHIL # 7.2 10^3/ul (1.6-7.5); NEUTROPHILS % 63.7 % (39.0-77.0); PLATELET COUNT 141 10^3/UL (140-415); POSITIVE DIFF @See below; RED BLOOD COUNT 3.33 10^6/ul (4.70-6.10); RED CELL DISTRIBUTION WIDTH 19.8 % (11.5-14.5); WHITE BLOOD COUNT 11.4 10^3/ul (4.8-10.8)
[2017-06-11 07:23] LABS: CALCIUM 7.4 mg/dl (8.4-10.2); CREATININE 3.99 mg/dl (0.61-1.24); POTASSIUM 4.3 mmol/L (3.5-5.1)
[2017-06-11] MEDS: CALCIUM ACETATE 667 MG CAP PO SCH ×3 (09:37→17:29)
[2017-06-11] MEDS: FOLIC ACID 1 MG TAB PO SCH (09:38)
[2017-06-11] MEDS: AMIODARONE 200 MG TAB PO SCH (09:39)
[2017-06-11] MEDS: MIDODRINE 5 MG TAB NGT SCH ×2 (09:39→17:30)
[2017-06-11] MEDS: COLLAGENASE 30 GM TUBE TOP SCH (09:39)
--- NOTE | 2017-06-11 11:33 | CONS ---
Date/Time of Note Date/Time of Note DATE: 06/11/17 TIME: 11:31 Consult Date/Type/Reason Admit Date/Time Jun 05, 2017 at 16:11 Initial Consult Date 06/06/17 Type of Consultation: Pulmonary Subjective Still with moderate weakness. Neurologically unchanged. Objective Vital Signs Date Time Temp Pulse Resp B/P Pulse Ox O2 Delivery O2 Flow Rate FiO2 06/11/17 09:31 96 4.0 06/11/17 09:30 73 23 Nasal Cannula 06/11/17 08:15 98.7 110/63 06/11/17 06:26 27 Intake and Output 06/10/17 06/10/17 06/11/17 15:00 23:00 07:00 Intake Total 270 ml 320 ml Balance 270 ml 320 ml Exam Exam GENERAL: Elderly gentleman on nasal cannula. VITAL SIGNS: per chart NECK: Supple. No JVD or lymphadenopathy. CARDIAC EXAM: S1, S2. No added sounds or murmurs. CHEST: Diminished air entry both lung bases. Poor inspiratory effort. ABDOMEN: Soft, nontender. No guarding or rebound. EXTREMITIES: No cyanosis, clubbing or edema. NEUROLOGIC: Generalized weakness. No focal deficits. Results/Medications Result Diagram: 06/11/1762506/11/1726 Results 24 hrs Laboratory Tests Test 06/11/17 06:26 White Blood Count 11.4 #H Red Blood Count 3.33 L Hemoglobin 9.9 L Hematocrit 30.9 L Mean Corpuscular Volume 92.8 Mean Corpuscular Hemoglobin 29.7 Mean Corpuscular Hemoglobin Concent 32.0 Red Cell Distribution Width 19.8 H Platelet Count 141 # Mean Platelet Volume 10.8 H Neutrophils % 63.7 Lymphocytes % 15.7 Monocytes % 14.3 H Eosinophils % 5.3 Basophils % 0.4 Nucleated Red Blood Cells % 0.0 Neutrophils # 7.2 Lymphocytes # 1.8 Monocytes # 1.6 H Eosinophils # 0.6 H Basophils # 0.1 Nucleated Red Blood Cells # 0.0 Sodium Level 141 Potassium Level 4.3 Chloride Level 106 Carbon Dioxide Level 26 Anion Gap 13 Blood Urea Nitrogen 54 H Creatinine 3.99 H Glucose Level 144 Calcium Level 7.4 L Medications Current Medications Ondansetron HCl (Zofran Inj) 4 mg Q6H PRN IV NAUSEA AND/OR VOMITING Last administered on 06/06/17 20:05; Admin Dose 4 MG; Start 06/05/17 at 14:00 Acetaminophen (Tylenol Tab) 650 mg Q6H PRN PO PAIN LEVEL 1-3 OR FEVER Last administered on 06/05/17 23:09; Admin Dose 650 MG; Start 06/05/17 at 14:00 Acetaminophen/ Hydrocodone Bitart ([place] (5/325)) 1 tab Q6H PRN PO MODERATE PAIN LEVEL 4-6; Start 06/05/17 at 14:00 Hydromorphone HCl (Dilaudid) 0.5 mg Q6H PRN IV SEVERE PAIN LEVEL 7-10 Last administered on 06/06/17 20:06; Admin Dose 0.5 MG; Start 06/05/17 at 15:00 Docusate Sodium (Colace) 100 mg Q12H PRN PO CONSTIPATION; Start 06/05/17 at 14: 00 Magnesium Hydroxide (Milk Of Mag) 30 ml DAILY PRN PO CONSTIPATION; Start at 14:00 Sodium Biphosphate/ Sodium Phosphate (Fleet Enema) 133 ml DAILY PRN [place] CONSTIPATION; Start 06/05/17 at 14:00 Lorazepam (Ativan) 0.5 mg Q6H PRN PO ANXIETY; Start 06/05/17 at 14:00 Vancomycin HCl (Vanco Iv Per Pharmacy) VANCOMYCIN PER PHARMACY NOTE XX ; Start 06/05/17 at 14:00 Hydralazine HCl (Apresoline) 10 mg Q6H PRN IV ELEVATED BLOOD PRESSURE; Start 06/05/17 at 14:00 Nitroglycerin (Nitroglycerin (Sl Tab) 0.4 Mg) 1 tab Q5M PRN SL ANGINA; Start 06/05/17 at 14:00 Folic Acid (Folic Acid) 1 mg DAILY PO Last administered on 06/11/17 09:38; Admin Dose 1 MG; Start 06/06/17 at 09:00 Miscellaneous Information (Pending Santyl Order For Wound Care) This patient badillo... PRN PRN XX WOUND CARE; Start 06/06/17 at 01:30 Collagenase (Santyl) 1 applic DAILY TOP Last administered on 06/11/17 09:39; Admin Dose 1 APPLIC; Start 06/06/17 at 15:30 Amiodarone HCl 200 mg 200 mg DAILY PO Last administered on 06/11/17 09:39; Admin Dose 200 MG; Start 06/07/17 at 09:00 Vancomycin HCl (Vancocin) 250 ml @ 125 mls/hr Q96H IVPB Last administered on 06/08/17 19:28; Admin Dose 125 MLS/HR; Start 06/08/17 at 20:00 Amikacin Sulfate (Amikacin Iv Per Pharmacy) AMIKACIN PER PHARMACY NOTE XX ; Start 06/09/17 at 17:00 Midodrine (Proamatine) 5 mg BID@ NGT Last administered on 06/11/17 09:39 ; Admin Dose 5 MG; Start 06/10/17 at 17:00 Lansoprazole (Prevacid) 30 mg BID@18 GTB Last administered on 06/11/17 05: 14; Admin Dose 30 MG; Start 06/11/17 at 06:00 Assessment/Plan Chief Complaint/Hosp Course IMPRESSION 1. Hypoxemic respiratory failure, likely secondary to volume overload. 2. Likely underlying pneumonia, possibly health-care associated. 3. Dysphagia. 4. Dementia. 5. End-stage renal failure. 6. Anemia likely secondary to chronic renal disease. 7. Septic shock. RECOMMENDATIONS 1. Continue broad-spectrum antibiotics. 2. Hemodialysis as tolerated. 3. Broad-spectrum antibiotics. 4. Aspiration precautions. 5. Palliative care consult, consider comfort measures as overall prognosis extremely poor. [facility] Problems: TIMBO RAMEY MD, [facility] Jun 11, 2017 11:33
--- NOTE | 2017-06-11 13:01 | CONS ---
Date/Time of Note Date/Time of Note DATE: 06/11/17 TIME: 13:00 Consult Date/Type/Reason Admit Date/Time Jun 05, 2017 at 16:11 Initial Consult Date 06/06/17 Type of Consultation: ID Objective Vital Signs Date Time Temp Pulse Resp B/P Pulse Ox O2 Delivery O2 Flow Rate FiO2 06/11/17 12:11 94 06/11/17 09:31 96 4.0 06/11/17 09:30 23 Nasal Cannula 06/11/17 08:15 98.7 110/63 06/11/17 06:26 27 Intake and Output 06/10/17 06/10/17 06/11/17 15:00 23:00 07:00 Intake Total 270 ml 320 ml Balance 270 ml 320 ml Results/Medications Result Diagram: 06/11/17 0626 06/11/17 0626 Results 24 hrs Laboratory Tests Test 06/11/17 06:26 White Blood Count 11.4 #H Red Blood Count 3.33 L Hemoglobin 9.9 L Hematocrit 30.9 L Mean Corpuscular Volume 92.8 Mean Corpuscular Hemoglobin 29.7 Mean Corpuscular Hemoglobin Concent 32.0 Red Cell Distribution Width 19.8 H Platelet Count 141 # Mean Platelet Volume 10.8 H Neutrophils % 63.7 Lymphocytes % 15.7 Monocytes % 14.3 H Eosinophils % 5.3 Basophils % 0.4 Nucleated Red Blood Cells % 0.0 Neutrophils # 7.2 Lymphocytes # 1.8 Monocytes # 1.6 H Eosinophils # 0.6 H Basophils # 0.1 Nucleated Red Blood Cells # 0.0 Sodium Level 141 Potassium Level 4.3 Chloride Level 106 Carbon Dioxide Level 26 Anion Gap 13 Blood Urea Nitrogen 54 H Creatinine 3.99 H Glucose Level 144 Calcium Level 7.4 L Medications Current Medications Ondansetron HCl (Zofran Inj) 4 mg Q6H PRN IV NAUSEA AND/OR VOMITING Last administered on 06/06/17 20:05; Admin Dose 4 MG; Start 06/05/17 at 14:00 Acetaminophen (Tylenol Tab) 650 mg Q6H PRN PO PAIN LEVEL 1-3 OR FEVER Last administered on 06/05/17 23:09; Admin Dose 650 MG; Start 06/05/17 at 14:00 Acetaminophen/ Hydrocodone Bitart ([place] (5/325)) 1 tab Q6H PRN PO MODERATE PAIN LEVEL 4-6; Start 06/05/17 at 14:00 Hydromorphone HCl (Dilaudid) 0.5 mg Q6H PRN IV SEVERE PAIN LEVEL 7-10 Last administered on 06/06/17 20:06; Admin Dose 0.5 MG; Start 06/05/17 at 15:00 Docusate Sodium (Colace) 100 mg Q12H PRN PO CONSTIPATION; Start 06/05/17 at 14: 00 Magnesium Hydroxide (Milk Of Mag) 30 ml DAILY PRN PO CONSTIPATION; Start at 14:00 Sodium Biphosphate/ Sodium Phosphate (Fleet Enema) 133 ml DAILY PRN [place] CONSTIPATION; Start 06/05/17 at 14:00 Lorazepam (Ativan) 0.5 mg Q6H PRN PO ANXIETY; Start 06/05/17 at 14:00 Vancomycin HCl (Vanco Iv Per Pharmacy) VANCOMYCIN PER PHARMACY NOTE XX ; Start 06/05/17 at 14:00 Hydralazine HCl (Apresoline) 10 mg Q6H PRN IV ELEVATED BLOOD PRESSURE; Start 06/05/17 at 14:00 Nitroglycerin (Nitroglycerin (Sl Tab) 0.4 Mg) 1 tab Q5M PRN SL ANGINA; Start 06/05/17 at 14:00 Folic Acid (Folic Acid) 1 mg DAILY PO Last administered on 06/11/17 09:38; Admin Dose 1 MG; Start 06/06/17 at 09:00 Miscellaneous Information (Pending Santyl Order For Wound Care) This patient badillo... PRN PRN XX WOUND CARE; Start 06/06/17 at 01:30 Collagenase (Santyl) 1 applic DAILY TOP Last administered on 06/11/17 09:39; Admin Dose 1 APPLIC; Start 06/06/17 at 15:30 Amiodarone HCl 200 mg 200 mg DAILY PO Last administered on 06/11/17 09:39; Admin Dose 200 MG; Start 06/07/17 at 09:00 Vancomycin HCl (Vancocin) 250 ml @ 125 mls/hr Q96H IVPB Last administered on 06/08/17 19:28; Admin Dose 125 MLS/HR; Start 06/08/17 at 20:00 Amikacin Sulfate (Amikacin Iv Per Pharmacy) AMIKACIN PER PHARMACY NOTE XX ; Start 06/09/17 at 17:00 Midodrine (Proamatine) 5 mg BID@ NGT Last administered on 06/11/17 09:39 ; Admin Dose 5 MG; Start 06/10/17 at 17:00 Lansoprazole (Prevacid) 30 mg BID@,18 GTB Last administered on 06/11/17 05: 14; Admin Dose 30 MG; Start 06/11/17 at 06:00 Assessment/Plan Chief Complaint/Hosp Course SUBJECTIVE: No acute changes. The patient remains lethargic, in HD, nad, afebrile. MICROBIOLOGY: Blood, urine cultures remain negative. Patient has right IJ permcath, PICC and permanent pacemaker. ANTIMICROBIALS: 1. Vancomycin. 2. Amikacin. PHYSICAL EXAMINATION: GENERAL: This is a chronically ill-appearing, elderly man who is lethargic, in no distress. HEENT: Head atraumatic, normocephalic. Sclerae anicteric. Buccal mucosa dry. NECK: Supple. CHEST: Rise symmetrical. Breath sounds diminished to bases. HEART: S1, S2. ABDOMEN: Soft. Bowel tones hypoactive. EXTREMITIES: Without cyanosis. Mottled and cyanotic. ASSESSMENT: 1. Severe sepsis with shock. 2. Pneumonia, possibly ongoing aspiration. 3. [id number] anemia, status post EGD that revealed esophagitis and gastritis. 4. End-stage renal disease, hemodialysis dependent. 5. Coronary artery disease, history of permanent pacemaker. 6. Failure to thrive and dysphagia, status post percutaneous endoscopic gastrostomy. 7. History of enterococcal bacteremia on previous admission. PLAN: Stable, continue abx, aspiration precautions, HD per renal. [facility] staff Problems: JACK CHAN NP Jun 11, 2017 13:01
--- NOTE | 2017-06-11 14:10 | CONS ---
Date/Time of Note Date/Time of Note DATE: 06/11/17 TIME: 14:09 Assessment/Plan Assessment/Plan Additional Assessment/Plan Septic shock, currently off IV pressor Labile blood pressure Preserved ejection fraction End-stage renal disease on hemodialysis Mild to moderate aortic stenosis -would continue to hold any antihypertensives at the current time given blood pressure still labile. Antibiotics as per primary team. Continue telemetry monitoring. Fluid management via hemodialysis as per our nephrology colleagues. Consultation Date/Type/Reason Admit Date/Time Jun 05, 2017 at 16:11 Initial Consult Date 06/06/17 Type of Consultation: cv 24 HR Interval Summary Free Text/Dictation Patient seen and examined Exam/Review of Systems Vital Signs Vitals Vital Signs Date Time Temp Pulse Resp B/P Pulse Ox O2 Delivery O2 Flow Rate FiO2 06/11/17 12:11 94 06/11/17 09:31 96 4.0 06/11/17 09:30 23 Nasal Cannula 06/11/17 08:15 98.7 110/63 06/11/17 06:26 27 Intake and Output 06/10/17 06/10/17 06/11/17 15:00 23:00 07:00 Intake Total 270 ml 320 ml Balance 270 ml 320 ml Exam Sleeping, no apparent distress Head: normocephalic Respiratory: other (Coarse breath sounds bilaterally, no wheezing) Cardiovascular: other (S1-S2 heard), regular rate and rhythm Gastrointestinal: bowel sounds, non-tender, soft Extremities: edema Results Result Diagram: 06/11/17 0626 06/11/17 0626 Results 24 hrs Laboratory Tests Test 06/11/17 06:26 White Blood Count 11.4 #H Red Blood Count 3.33 L Hemoglobin 9.9 L Hematocrit 30.9 L Mean Corpuscular Volume 92.8 Mean Corpuscular Hemoglobin 29.7 Mean Corpuscular Hemoglobin Concent 32.0 Red Cell Distribution Width 19.8 H Platelet Count 141 # Mean Platelet Volume 10.8 H Neutrophils % 63.7 Lymphocytes % 15.7 Monocytes % 14.3 H Eosinophils % 5.3 Basophils % 0.4 Nucleated Red Blood Cells % 0.0 Neutrophils # 7.2 Lymphocytes # 1.8 Monocytes # 1.6 H Eosinophils # 0.6 H Basophils # 0.1 Nucleated Red Blood Cells # 0.0 Sodium Level 141 Potassium Level 4.3 Chloride Level 106 Carbon Dioxide Level 26 Anion Gap 13 Blood Urea Nitrogen 54 H Creatinine 3.99 H Glucose Level 144 Calcium Level 7.4 L Medications Medications Current Medications Ondansetron HCl (Zofran Inj) 4 mg Q6H PRN IV NAUSEA AND/OR VOMITING Last administered on 06/06/17 20:05; Admin Dose 4 MG; Start 06/05/17 at 14:00 Acetaminophen (Tylenol Tab) 650 mg Q6H PRN PO PAIN LEVEL 1-3 OR FEVER Last administered on 06/05/17 23:09; Admin Dose 650 MG; Start 06/05/17 at 14:00 Acetaminophen/ Hydrocodone Bitart ([place] (5/325)) 1 tab Q6H PRN PO MODERATE PAIN LEVEL 4-6; Start 06/05/17 at 14:00 Hydromorphone HCl (Dilaudid) 0.5 mg Q6H PRN IV SEVERE PAIN LEVEL 7-10 Last administered on 06/06/17 20:06; Admin Dose 0.5 MG; Start 06/05/17 at 15:00 Docusate Sodium (Colace) 100 mg Q12H PRN PO CONSTIPATION; Start 06/05/17 at 14: 00 Magnesium Hydroxide (Milk Of Mag) 30 ml DAILY PRN PO CONSTIPATION; Start at 14:00 Sodium Biphosphate/ Sodium Phosphate (Fleet Enema) 133 ml DAILY PRN [place] CONSTIPATION; Start 06/05/17 at 14:00 Lorazepam (Ativan) 0.5 mg Q6H PRN PO ANXIETY; Start 06/05/17 at 14:00 Vancomycin HCl (Vanco Iv Per Pharmacy) VANCOMYCIN PER PHARMACY NOTE XX ; Start 06/05/17 at 14:00 Hydralazine HCl (Apresoline) 10 mg Q6H PRN IV ELEVATED BLOOD PRESSURE; Start 06/05/17 at 14:00 Nitroglycerin (Nitroglycerin (Sl Tab) 0.4 Mg) 1 tab Q5M PRN SL ANGINA; Start 06/05/17 at 14:00 Folic Acid (Folic Acid) 1 mg DAILY PO Last administered on 06/11/17 09:38; Admin Dose 1 MG; Start 06/06/17 at 09:00 Miscellaneous Information (Pending [facility] Order For Wound Care) This patient badillo... PRN PRN XX WOUND CARE; Start 06/06/17 at 01:30 Collagenase (Santyl) 1 applic DAILY TOP Last administered on 06/11/17 09:39; Admin Dose 1 APPLIC; Start 06/06/17 at 15:30 Amiodarone HCl 200 mg 200 mg DAILY PO Last administered on 06/11/17 09:39; Admin Dose 200 MG; Start 06/07/17 at 09:00 Vancomycin HCl (Vancocin) 250 ml @ 125 mls/hr Q96H IVPB Last administered on 06/08/17 19:28; Admin Dose 125 MLS/HR; Start 06/08/17 at 20:00 Amikacin Sulfate (Amikacin Iv Per Pharmacy) AMIKACIN PER PHARMACY NOTE XX ; Start 06/09/17 at 17:00 Midodrine (Proamatine) 5 mg BID@17 NGT Last administered on 06/11/17 09:39 ; Admin Dose 5 MG; Start 06/10/17 at 17:00 Lansoprazole (Prevacid) 30 mg BID@06,18 GTB Last administered on 06/11/17 05: 14; Admin Dose 30 MG; Start 06/11/17 at 06:00 Alberto Good DO Jun 11, 2017 14:10
--- NOTE | 2017-06-11 14:21 | PN ---
Date/Time of Note Date/Time of Note DATE: 06/11/17 TIME: 14:17 Assessment/Plan VTE Prophylaxis VTE Prophylaxis Intervention: SCD's Lines/Catheters IV Catheter Type (from Nrsg): PERMACATH Urinary Cath still in place: No Assessment/Plan Assessment/Plan 89 yo M with dementia, ESRD on GD admitted for septic shock, also found to have multiple wounds #septic shock with negative cultures and no radiographic evidence of pna: abx as per ID. consider viral etio? length of therapy for abx also unclear #troponinemia 2/2 demand from sepsis: cards on consult #ESRD: HD as per renal #anemia: EGD with gastritis, cscope declined by family #h/o SSS: PM in place #multiple wounds: CM and SS consult for safety eval prior to transfer back to [facility] Exam/Review of Systems Vital Signs Vitals Vital Signs Date Time Temp Pulse Resp B/P Pulse Ox O2 Delivery O2 Flow Rate FiO2 06/11/17 12:11 94 06/11/17 09:31 96 4.0 06/11/17 09:30 23 Nasal Cannula 06/11/17 08:15 98.7 110/63 06/11/17 06:26 27 Intake and Output 06/10/17 06/10/17 06/11/17 15:00 23:00 07:00 Intake Total 270 ml 320 ml Balance 270 ml 320 ml Results Result Diagram: 06/11/17 0626 06/11/17 0626 Results 24 hrs Laboratory Tests Test 06/11/17 06:26 White Blood Count 11.4 #H Red Blood Count 3.33 L Hemoglobin 9.9 L Hematocrit 30.9 L Mean Corpuscular Volume 92.8 Mean Corpuscular Hemoglobin 29.7 Mean Corpuscular Hemoglobin Concent 32.0 Red Cell Distribution Width 19.8 H Platelet Count 141 # Mean Platelet Volume 10.8 H Neutrophils % 63.7 Lymphocytes % 15.7 Monocytes % 14.3 H Eosinophils % 5.3 Basophils % 0.4 Nucleated Red Blood Cells % 0.0 Neutrophils # 7.2 Lymphocytes # 1.8 Monocytes # 1.6 H Eosinophils # 0.6 H Basophils # 0.1 Nucleated Red Blood Cells # 0.0 Sodium Level 141 Potassium Level 4.3 Chloride Level 106 Carbon Dioxide Level 26 Anion Gap 13 Blood Urea Nitrogen 54 H Creatinine 3.99 H Glucose Level 144 Calcium Level 7.4 L Medications Medications Current Medications Ondansetron HCl (Zofran Inj) 4 mg Q6H PRN IV NAUSEA AND/OR VOMITING Last administered on 06/06/17 20:05; Admin Dose 4 MG; Start 06/05/17 at 14:00 Acetaminophen (Tylenol Tab) 650 mg Q6H PRN PO PAIN LEVEL 1-3 OR FEVER Last administered on 06/05/17 23:09; Admin Dose 650 MG; Start 06/05/17 at 14:00 Acetaminophen/ Hydrocodone Bitart ([place] (5/325)) 1 tab Q6H PRN PO MODERATE PAIN LEVEL 4-6; Start 06/05/17 at 14:00 Hydromorphone HCl (Dilaudid) 0.5 mg Q6H PRN IV SEVERE PAIN LEVEL 7-10 Last administered on 06/06/17 20:06; Admin Dose 0.5 MG; Start 06/05/17 at 15:00 Docusate Sodium (Colace) 100 mg Q12H PRN PO CONSTIPATION; Start 06/05/17 at 14: 00 Magnesium Hydroxide (Milk Of Mag) 30 ml DAILY PRN PO CONSTIPATION; Start at 14:00 Sodium Biphosphate/ Sodium Phosphate (Fleet Enema) 133 ml DAILY PRN [place] CONSTIPATION; Start 06/05/17 at 14:00 Lorazepam (Ativan) 0.5 mg Q6H PRN PO ANXIETY; Start 06/05/17 at 14:00 Vancomycin HCl (Vanco Iv Per Pharmacy) VANCOMYCIN PER PHARMACY NOTE XX ; Start 06/05/17 at 14:00 Hydralazine HCl (Apresoline) 10 mg Q6H PRN IV ELEVATED BLOOD PRESSURE; Start 06/05/17 at 14:00 Nitroglycerin (Nitroglycerin (Sl Tab) 0.4 Mg) 1 tab Q5M PRN SL ANGINA; Start 06/05/17 at 14:00 Folic Acid (Folic Acid) 1 mg DAILY PO Last administered on 06/11/17 09:38; Admin Dose 1 MG; Start 06/06/17 at 09:00 Miscellaneous Information (Pending Santyl Order For Wound Care) This patient badillo... PRN PRN XX WOUND CARE; Start 06/06/17 at 01:30 Collagenase (Santyl) 1 applic DAILY TOP Last administered on 06/11/17 09:39; Admin Dose 1 APPLIC; Start 06/06/17 at 15:30 Amiodarone HCl 200 mg 200 mg DAILY PO Last administered on 06/11/17 09:39; Admin Dose 200 MG; Start 06/07/17 at 09:00 Vancomycin HCl (Vancocin) 250 ml @ 125 mls/hr Q96H IVPB Last administered on 06/08/17 19:28; Admin Dose 125 MLS/HR; Start 06/08/17 at 20:00 Amikacin Sulfate (Amikacin Iv Per Pharmacy) AMIKACIN PER PHARMACY NOTE XX ; Start 06/09/17 at 17:00 Midodrine (Proamatine) 5 mg BID@ NGT Last administered on 06/11/17 09:39 ; Admin Dose 5 MG; Start 06/10/17 at 17:00 Lansoprazole (Prevacid) 30 mg BID@18 GTB Last administered on 06/11/17 05: 14; Admin Dose 30 MG; Start 06/11/17 at 06:00 MANUEL BUSTOS MD Jun 11, 2017 14:21 PAIN LEVEL 4-6; Start 06/05/17 at 14:00 Hydromorphone HCl (Dilaudid) 0.5 mg Q6H PRN IV SEVERE PAIN LEVEL 7-10 Last administered on 06/06/17 20:06; Admin Dose 0.5 MG; Start 06/05/17 at 15:00 Docusate Sodium (Colace) 100 mg Q12H PRN PO CONSTIPATION; Start 06/05/17 at 14: 00 Magnesium Hydroxide (Milk Of Mag) 30 ml DAILY PRN PO CONSTIPATION; Start at 14:00 Sodium Biphosphate/ Sodium Phosphate (Fleet Enema) 133 ml DAILY PRN [place] CONSTIPATION; Start 06/05/17 at 14:00 Lorazepam (Ativan) 0.5 mg Q6H PRN PO ANXIETY; Start 06/05/17 at 14:00 Vancomycin HCl (Vanco Iv Per Pharmacy) VANCOMYCIN PER PHARMACY NOTE XX ; Start 06/05/17 at 14:00 Hydralazine HCl (Apresoline) 10 mg Q6H PRN IV ELEVATED BLOOD PRESSURE; Start 06/05/17 at 14:00 Nitroglycerin (Nitroglycerin (Sl Tab) 0.4 Mg) 1 tab Q5M PRN SL ANGINA; Start 06/05/17 at 14:00 Folic Acid (Folic Acid) 1 mg DAILY PO Last administered on 06/11/17 09:38; Admin Dose 1 MG; Start 06/06/17 at 09:00 Miscellaneous Information (Pending Santyl Order For Wound Care) This patient badillo... PRN PRN XX WOUND CARE; Start 06/06/17 at 01:30 Collagenase (Santyl) 1 applic DAILY TOP Last administered on 06/11/17 09:39; Admin Dose 1 APPLIC; Start 06/06/17 at 15:30 Amiodarone HCl 200 mg 200 mg DAILY PO Last administered on 06/11/17 09:39; Admin Dose 200 MG; Start 06/07/17 at 09:00 Vancomycin HCl (Vancocin) 250 ml @ 125 mls/hr Q96H IVPB Last administered on 06/08/17 19:28; Admin Dose 125 MLS/HR; Start 06/08/17 at 20:00 Amikacin Sulfate (Amikacin Iv Per Pharmacy) AMIKACIN PER PHARMACY NOTE XX ; Start 06/09/17 at 17:00 Midodrine (Proamatine) 5 mg BID@17 NGT Last administered on 06/11/17 09:39 ; Admin Dose 5 MG; Start 06/10/17 at 17:00 Lansoprazole (Prevacid) 30 mg BID@,18 GTB Last administered on 06/11/17 05: 14; Admin Dose 30 MG; Start 06/11/17 at 06:00 MANUEL BUSTOS MD Jun 11, 2017 14:21
[2017-06-12] VITALS (49 sets, daily range): BP systolic 66–128; BP diastolic 20–91; PULSE 86–115; RESP 10–38
[2017-06-12] MEDS ORDERED: ALBUMIN HUMAN 25% 100 ML IV ONE (00:30)
[2017-06-12] MEDS: ALBUTEROL/IPRATROPIUM (NEB) 3 ML AMP HHN PRN ×2 (01:40→20:59)
--- NOTE | 2017-06-12 02:33 | RADRPT ---
PROCEDURE: XR Chest. CLINICAL INDICATION: Shortness of breath TECHNIQUE: AP Portable chest. COMPARISON: CHEST 06/08/2017; CHEST 06/07/2017; FINDINGS: There are multiple wires overlying the chest. The right dialysis catheter and left subclavian dual l ead pacemaker are visualized. The cardiomediastinal silhouette is within normal limits. The aorta is calcified and tortuous. Inter vito decrease bilateral ground-glass opacities, bilateral pleural effusions. No pneumothorax is seen. The osseous structures are intact. IMPRESSION: Interval decrease edema, and bilateral pleural effusions. Aortic atherosclerosis. Physician Miguel Date Time Electronically viewed and signed by Physician Miguel on 06/12/2017 02:33 CS/
[2017-06-12] MEDS: LANSOPRAZOLE 30 MG CAP GTB SCH ×2 (06:28→17:48)
[2017-06-12 08:17] LABS: BASOPHILS % 0.4 % (0.0-2.0); EOSINOPHILS # 0.2 10^3/ul (0.0-0.5); EOSINOPHILS % 2.8 % (0.0-7.0); HEMATOCRIT 23.5 % (42.0-52.0); HEMOGLOBIN 7.4 g/dl (14.0-18.0); LYMPHOCYTES # 0.6 10^3/ul (0.8-2.9); LYMPHOCYTES % 7.3 % (15.0-51.0); MEAN CORPUSCULAR HEMOGLOBIN 29.7 pg (29.0-33.0); MEAN CORPUSCULAR HGB CONC 31.5 g/dl (32.0-37.0); MEAN CORPUSCULAR VOLUME 94.4 fl (82.0-101.0); MEAN PLATELET VOLUME 10.6 fl (7.4-10.4); MONOCYTE # 1.1 10^3/ul (0.3-0.9); MONOCYTES % 13.6 % (0.0-11.0); NEUTROPHIL # 6.3 10^3/ul (1.6-7.5); NEUTROPHILS % 75.3 % (39.0-77.0); PLATELET COUNT 138 10^3/UL (140-415); RED BLOOD COUNT 2.49 10^6/ul (4.70-6.10); RED CELL DISTRIBUTION WIDTH 19.9 % (11.5-14.5); WHITE BLOOD COUNT 8.3 10^3/ul (4.8-10.8)
[2017-06-12 08:33] LABS: CALCIUM 7.8 mg/dl (8.4-10.2); CREATININE 4.42 mg/dl (0.61-1.24); POTASSIUM 4.2 mmol/L (3.5-5.1)
[2017-06-12] MEDS: FOLIC ACID 1 MG TAB PO SCH (09:07)
[2017-06-12] MEDS: ACETAMINOPHEN 325 MG TAB PO PRN (09:07)
[2017-06-12] MEDS: CALCIUM ACETATE 667 MG CAP PO SCH ×3 (09:07→17:48)
[2017-06-12] MEDS: COLLAGENASE 30 GM TUBE TOP SCH (09:09)
[2017-06-12] MEDS: AMIODARONE 200 MG TAB PO SCH (09:14)
[2017-06-12] MEDS: MIDODRINE 5 MG TAB NGT SCH ×2 (09:15→17:55)
[2017-06-12] MEDS ORDERED: SOD CHLORIDE 0.9% 500 ML IV ONE ×2 (09:30)
--- NOTE | 2017-06-12 11:02 | CONS ---
Date/Time of Note Date/Time of Note DATE: 06/12/17 TIME: 10:59 Assessment/Plan Assessment/Plan Additional Assessment/Plan Chest x-ray was reviewed from today which is showing right-sided pleural effusion. Changes of pulmonary edema are present bilaterally. Assessment and recommendations; 1. Patient admitted with hypoxemic respiratory failure which is combination of volume overload with pneumonia. Currently on appropriate antibiotic regimen. 2. Advanced dementia. 3. Anemia and thrombocytopenia. 4. Chronic renal failure, on hemodialysis. 5. History of cardiac arrhythmia. Continue current supportive care. Prognosis is poor. Consultation Date/Type/Reason Admit Date/Time Jun 05, 2017 at 16:11 Initial Consult Date 06/06/17 Type of Consultation: Pulmonary 24 HR Interval Summary Free Text/Dictation Patient's condition is tenuous at best. On BiPAP. Remains unresponsive. General exam; elderly male, on BiPAP, somewhat responsive. Currently in no distress. Exam/Review of Systems Vital Signs Vitals Vital Signs Date Time Temp Pulse Resp B/P Pulse Ox O2 Delivery O2 Flow Rate FiO2 06/12/17 09:39 103 100 40 06/12/17 04:34 98.3 20 128/71 06/12/17 01:43 4.0 06/11/17 20:00 Nasal Cannula Intake and Output 06/11/17 06/11/17 06/12/17 15:00 23:00 07:00 Intake Total 340 ml 340 ml Balance 340 ml 340 ml Exam HEENT exam; supple neck, positive JVD. No lymphadenopathy. Midline trachea. On BiPAP. Chest exam; diminished breath sounds bilaterally. S1-S2 audible, no murmurs. Pacemaker in left chest wall. Abdomen exam; soft, G-tube in place. Bowel sounds audible. Abdomen is nondistended. Extremity exam; no peripheral edema. NIGHT NURSE exam; patient remains semi-responsive. Results Result Diagram: 06/12/1772006/12/17720 Results 24 hrs Laboratory Tests Test 06/12/17 07:21 White Blood Count 8.3 # Red Blood Count 2.49 #L Hemoglobin 7.4 #L Hematocrit 23.5 #L Mean Corpuscular Volume 94.4 Mean Corpuscular Hemoglobin 29.7 Mean Corpuscular Hemoglobin Concent 31.5 L Red Cell Distribution Width 19.9 H Platelet Count 138 L Mean Platelet Volume 10.6 H Neutrophils % 75.3 Lymphocytes % 7.3 L Monocytes % 13.6 H Eosinophils % 2.8 Basophils % 0.4 Nucleated Red Blood Cells % 0.0 Neutrophils # 6.3 Lymphocytes # 0.6 L Monocytes # 1.1 H Eosinophils # 0.2 Basophils # 0.0 Nucleated Red Blood Cells # 0.0 Sodium Level 142 Potassium Level 4.2 Chloride Level 105 Carbon Dioxide Level 26 Anion Gap 15 Blood Urea Nitrogen 64 H Creatinine 4.42 H Glucose Level 133 Calcium Level 7.8 L Medications Medications Current Medications Ondansetron HCl (Zofran Inj) 4 mg Q6H PRN IV NAUSEA AND/OR VOMITING Last administered on 06/06/17 20:05; Admin Dose 4 MG; Start 06/05/17 at 14:00 Acetaminophen (Tylenol Tab) 650 mg Q6H PRN PO PAIN LEVEL 1-3 OR FEVER Last administered on 06/12/17 09:07; Admin Dose 650 MG; Start 06/05/17 at 14:00 Acetaminophen/ Hydrocodone Bitart ([place] (5/325)) 1 tab Q6H PRN PO MODERATE PAIN LEVEL 4-6; Start 06/05/17 at 14:00 Hydromorphone HCl (Dilaudid) 0.5 mg Q6H PRN IV SEVERE PAIN LEVEL 7-10 Last administered on 06/06/17 20:06; Admin Dose 0.5 MG; Start 06/05/17 at 15:00 Docusate Sodium (Colace) 100 mg Q12H PRN PO CONSTIPATION; Start 06/05/17 at 14: 00 Magnesium Hydroxide (Milk Of Mag) 30 ml DAILY PRN PO CONSTIPATION; Start at 14:00 Sodium Biphosphate/ Sodium Phosphate (Fleet Enema) 133 ml DAILY PRN [place] CONSTIPATION; Start 06/05/17 at 14:00 Lorazepam (Ativan) 0.5 mg Q6H PRN PO ANXIETY; Start 06/05/17 at 14:00 Vancomycin HCl (Vanco Iv Per Pharmacy) VANCOMYCIN PER PHARMACY NOTE XX ; Start 06/05/17 at 14:00 Hydralazine HCl (Apresoline) 10 mg Q6H PRN IV ELEVATED BLOOD PRESSURE; Start 06/05/17 at 14:00 Nitroglycerin (Nitroglycerin (Sl Tab) 0.4 Mg) 1 tab Q5M PRN SL ANGINA; Start 06/05/17 at 14:00 Folic Acid (Folic Acid) 1 mg DAILY PO Last administered on 06/12/17 09:07; Admin Dose 1 MG; Start 06/06/17 at 09:00 Miscellaneous Information (Pending Santyl Order For Wound Care) This patient badillo... PRN PRN XX WOUND CARE; Start 06/06/17 at 01:30 Collagenase (Santyl) 1 applic DAILY TOP Last administered on 06/12/17 09:09; Admin Dose 1 APPLIC; Start 06/06/17 at 15:30 Amiodarone HCl 200 mg 200 mg DAILY PO Last administered on 06/12/17 09:14; Admin Dose 200 MG; Start 06/07/17 at 09:00 Vancomycin HCl (Vancocin) 250 ml @ 125 mls/hr Q96H IVPB Last administered on 06/08/17 19:28; Admin Dose 125 MLS/HR; Start 06/08/17 at 20:00 Amikacin Sulfate (Amikacin Iv Per Pharmacy) AMIKACIN PER PHARMACY NOTE XX ; Start 06/09/17 at 17:00 Midodrine (Proamatine) 5 mg BID@09,17 NGT Last administered on 06/12/17 09:15 ; Admin Dose 5 MG; Start 06/10/17 at 17:00 Lansoprazole (Prevacid) 30 mg BID@06,18 GTB Last administered on 06/12/17 06: 28; Admin Dose 30 MG; Start 06/11/17 at 06:00 JOSE MIGUEL NICHOLS Jun 12, 2017 11:02
--- NOTE | 2017-06-12 11:09 | PN ---
Date/Time of Note Date/Time of Note DATE: 06/12/17 TIME: 10:55 Assessment/Plan VTE Prophylaxis VTE Prophylaxis Intervention: SCD's Lines/Catheters IV C[facility]ter Type (from [facility]): PERMACATH Urinary Cath still in place: No Assessment/Plan Chief Complaint/Hosp Course Summary Assessment and Plan: Assessment: Positive FOBT Anemia EGD 06/06/17 Impression: Esophagitis Gastritis. Rule out H pylori. Biopsied (likely cause of bleeding) GT in place Plan: Continue PPI bid Continue to monitor H/H- drop in HGB - will order 1 unit PRBCs Stool for OB Patient currently on Bipap, Recommend palliative therapy- although family does not consent to palliative care at this time Discussed with family, patient very high risk to preform colonoscopy- family agrees and and declines colonoscopy at this time Patient seen in collaboration with Subjective: Course reviewed with nursing staff Patient interviewed and examined All labs, imaging and other results reviewed The patient very weak, drop in HGB will order 1 unit of blood- transferred to ICU Continue to monitor H/H Patient with very poor prognosis, considered high risk for colonoscopy- family agrees and does not want colonoscopy at this time recommend palliative therapy, although family currently does not consent to palliative care Code status DNR No further interventions warranted from GI at this time PHYSICAL EXAMINATION: GENERAL: Non-verbal, chronically ill appearing SKIN: No lesions, no stigmata chronic liver disease, g-tube in place. LYMPHATIC: No palpable lymphadenopathy. HEAD: Normocephalic, atraumatic, no tenderness. EYES: Pupils equal reactive to light and accommodation, full extraocular movements, sclera clear, non-icteric, no discharge. EARS/NOSE AND THROAT: Ears normal, nose normal, oropharynx normal, oral membranes well hydrated without lesions. NECK: Supple, no masses, thyroid normal, CHEST: Inspection within normal limits. CARDIOVASCULAR: Heart: irregular RESPIRATORY: Lungs diminished GASTROINTESTINAL AND LIVER: Abdomen: Soft, non tenderness, non-distended, no hernias, no masses, no organomegaly, no ascites, no guarding, no rebound tenderness, normoactive bowel sounds. Rectal: OB positive Problems: Exam/Review of Systems Vital Signs Vitals Vital Signs Date Time Temp Pulse Resp B/P Pulse Ox O2 Delivery O2 Flow Rate FiO2 06/12/17 09:39 103 100 40 06/12/17 04:34 98.3 20 128/71 06/12/17 01:43 4.0 06/11/17 20:00 Nasal Cannula Intake and Output 06/11/17 06/11/17 06/12/17 15:00 23:00 07:00 Intake Total 340 ml 340 ml Balance 340 ml 340 ml Results Result Diagram: 06/12/1772006/12/17 0721 Results 24 hrs Laboratory Tests Test 06/12/17 07:21 White Blood Count 8.3 # Red Blood Count 2.49 #L Hemoglobin 7.4 #L Hematocrit 23.5 #L Mean Corpuscular Volume 94.4 Mean Corpuscular Hemoglobin 29.7 Mean Corpuscular Hemoglobin Concent 31.5 L Red Cell Distribution Width 19.9 H Platelet Count 138 L Mean Platelet Volume 10.6 H Neutrophils % 75.3 Lymphocytes % 7.3 L Monocytes % 13.6 H Eosinophils % 2.8 Basophils % 0.4 Nucleated Red Blood Cells % 0.0 Neutrophils # 6.3 Lymphocytes # 0.6 L Monocytes # 1.1 H Eosinophils # 0.2 Basophils # 0.0 Nucleated Red Blood Cells # 0.0 Sodium Level 142 Potassium Level 4.2 Chloride Level 105 Carbon Dioxide Level 26 Anion Gap 15 Blood Urea Nitrogen 64 H Creatinine 4.42 H Glucose Level 133 Calcium Level 7.8 L Medications Medications Current Medications Ondansetron HCl (Zofran Inj) 4 mg Q6H PRN IV NAUSEA AND/OR VOMITING Last administered on 06/06/17 20:05; Admin Dose 4 MG; Start 06/05/17 at 14:00 Acetaminophen (Tylenol Tab) 650 mg Q6H PRN PO PAIN LEVEL 1-3 OR FEVER Last administered on 06/12/17 09:07; Admin Dose 650 MG; Start 06/05/17 at 14:00 Acetaminophen/ Hydrocodone Bitart ([place] (5/325)) 1 tab Q6H PRN PO MODERATE PAIN LEVEL 4-6; Start 06/05/17 at 14:00 Hydromorphone HCl (Dilaudid) 0.5 mg Q6H PRN IV SEVERE PAIN LEVEL 7-10 Last administered on 06/06/17 20:06; Admin Dose 0.5 MG; Start 06/05/17 at 15:00 Docusate Sodium (Colace) 100 mg Q12H PRN PO CONSTIPATION; Start 06/05/17 at 14: 00 Magnesium Hydroxide (Milk Of Mag) 30 ml DAILY PRN PO CONSTIPATION; Start at 14:00 Sodium Biphosphate/ Sodium Phosphate (Fleet Enema) 133 ml DAILY PRN [place] CONSTIPATION; Start 06/05/17 at 14:00 Lorazepam (Ativan) 0.5 mg Q6H PRN PO ANXIETY; Start 06/05/17 at 14:00 Vancomycin HCl (Vanco Iv Per Pharmacy) VANCOMYCIN PER PHARMACY NOTE XX ; Start 06/05/17 at 14:00 Hydralazine HCl (Apresoline) 10 mg Q6H PRN IV ELEVATED BLOOD PRESSURE; Start 06/05/17 at 14:00 Nitroglycerin (Nitroglycerin (Sl Tab) 0.4 Mg) 1 tab Q5M PRN SL ANGINA; Start 06/05/17 at 14:00 Folic Acid (Folic Acid) 1 mg DAILY PO Last administered on 06/12/17 09:07; Admin Dose 1 MG; Start 06/06/17 at 09:00 Miscellaneous Information (Pending Santyl Order For Wound Care) This patient badillo... PRN PRN XX WOUND CARE; Start 06/06/17 at 01:30 Collagenase (Santyl) 1 applic DAILY TOP Last administered on 06/12/17 09:09; Admin Dose 1 APPLIC; Start 06/06/17 at 15:30 Amiodarone HCl 200 mg 200 mg DAILY PO Last administered on 06/12/17 09:14; Admin Dose 200 MG; Start 06/07/17 at 09:00 Vancomycin HCl (Vancocin) 250 ml @ 125 mls/hr Q96H IVPB Last administered on 06/08/17 19:28; Admin Dose 125 MLS/HR; Start 06/08/17 at 20:00 Amikacin Sulfate (Amikacin Iv Per Pharmacy) AMIKACIN PER PHARMACY NOTE XX ; Start 06/09/17 at 17:00 Midodrine (Proamatine) 5 mg BID@ NGT Last administered on 06/12/17 09:15 ; Admin Dose 5 MG; Start 06/10/17 at 17:00 Lansoprazole (Prevacid) 30 mg BID@18 GTB Last administered on 06/12/17 06: 28; Admin Dose 30 MG; Start 06/11/17 at 06:00 DAISY ANTONIO Jun 12, 2017 11:05
[2017-06-12] MEDS ORDERED: SOD CHLORIDE 0.9% 1,000 ML IV ONE (12:00)
[2017-06-12] MEDS ORDERED: LIDOCAINE 1% (MPF) 5 ML VIAL SC ONE (12:00)
[2017-06-12] MEDS ORDERED: NORepinephrine 8MG/250 ML (PMX 250 ML IV SCH (12:00)
--- NOTE | 2017-06-12 12:32 | PN ---
Date/Time of Note Date/Time of Note DATE: 06/12/17 TIME: 12:31 Assessment/Plan VTE Prophylaxis VTE Prophylaxis Intervention: SCD's Lines/Catheters IV Catheter Type (from Nrs): PERMACATH Urinary Cath still in place: No Assessment/Plan Assessment/Plan 89 yo M with dementia, ESRD on GD admitted for septic shock, also found to have multiple wounds. Appears to again be in shock #septic shock with negative cultures and no radiographic evidence of pna: abx as per ID. TRANSFER BACK TO ICU FOR PRESSORS. PT ALREADY HAS PICC LINE IN PLACE #troponinemia 2/2 demand from sepsis: cards on consult #ESRD: HD as per renal #anemia: EGD with gastritis, cscope declined by family #h/o SSS: PM in place Goals of care: had >15 minute talk with pt's POA/son Art at patient's bedside. I explained that pt is very ill and despite aggressive care continues to decompensate. Dw Art that even if pt is transferred to ICU and started on pressors, he may continue to decompensate. Given how uncomfortable pt's breathing Iappeared, I asked Art if he would want pt intubated for respiratory distress even though it is possible pt may never be able to be extubated. Son requested intubation if indicated. Son did affirm pt's DNR status indicating that he did not want his father subjected to CPR. I have already alerted the certified prosthetist about the high likelihood patient may require intubation later this afternoon Subjective 24 Hr Interval Summary Free Text/Dictation Pt doing worse this morning and afternoon with persistent hypotension despite multiple fluid boluses Exam/Review of Systems Vital Signs Vitals Vital Signs Date Time Temp Pulse Resp B/P Pulse Ox O2 Delivery O2 Flow Rate FiO2 06/12/17 12:18 103 06/12/17 11:47 100 40 06/12/17 11:46 98.4 32 66/35 06/12/17 10:45 BIPAP 06/12/17 01:43 4.0 Intake and Output 06/11/17 06/11/17 06/12/17 15:00 23:00 07:00 Intake Total 340 ml 340 ml Balance 340 ml 340 ml Exam wearing bipap, breathing appears uncomfortable no mrg very poor air movement frail +LE wounds no rashes Results Result Diagram: 11/14/17 0721 11/14/17 0721 Results 24 hrs Laboratory Tests Test 06/12/17 07:21 White Blood Count 8.3 # Red Blood Count 2.49 #L Hemoglobin 7.4 #L Hematocrit 23.5 #L Mean Corpuscular Volume 94.4 Mean Corpuscular Hemoglobin 29.7 Mean Corpuscular Hemoglobin Concent 31.5 L Red Cell Distribution Width 19.9 H Platelet Count 138 L Mean Platelet Volume 10.6 H Neutrophils % 75.3 Lymphocytes % 7.3 L Monocytes % 13.6 H Eosinophils % 2.8 Basophils % 0.4 Nucleated Red Blood Cells % 0.0 Neutrophils # 6.3 Lymphocytes # 0.6 L Monocytes # 1.1 H Eosinophils # 0.2 Basophils # 0.0 Nucleated Red Blood Cells # 0.0 Sodium Level 142 Potassium Level 4.2 Chloride Level 105 Carbon Dioxide Level 26 Anion Gap 15 Blood Urea Nitrogen 64 H Creatinine 4.42 H Glucose Level 133 Calcium Level 7.8 L Medications Medications Current Medications Ondansetron HCl (Zofran Inj) 4 mg Q6H PRN IV NAUSEA AND/OR VOMITING Last administered on 06/06/17 20:05; Admin Dose 4 MG; Start 06/05/17 at 14:00 Acetaminophen (Tylenol Tab) 650 mg Q6H PRN PO PAIN LEVEL 1-3 OR FEVER Last administered on 06/12/17 09:07; Admin Dose 650 MG; Start 06/05/17 at 14:00 Acetaminophen/ Hydrocodone Bitart ([place] (5/325)) 1 tab Q6H PRN PO MODERATE PAIN LEVEL 4-6; Start 06/05/17 at 14:00 Hydromorphone HCl (Dilaudid) 0.5 mg Q6H PRN IV SEVERE PAIN LEVEL 7-10 Last administered on 06/06/17 20:06; Admin Dose 0.5 MG; Start 06/05/17 at 15:00 Docusate Sodium (Colace) 100 mg Q12H PRN PO CONSTIPATION; Start 06/05/17 at 14: 00 Magnesium Hydroxide (Milk Of Mag) 30 ml DAILY PRN PO CONSTIPATION; Start at 14:00 Sodium Biphosphate/ Sodium Phosphate (Fleet Enema) 133 ml DAILY PRN [place] CONSTIPATION; Start 06/05/17 at 14:00 Lorazepam (Ativan) 0.5 mg Q6H PRN PO ANXIETY; Start 06/05/17 at 14:00 Vancomycin HCl (Vanco Iv Per Pharmacy) VANCOMYCIN PER PHARMACY NOTE XX ; Start 06/05/17 at 14:00 Hydralazine HCl (Apresoline) 10 mg Q6H PRN IV ELEVATED BLOOD PRESSURE; Start 06/05/17 at 14:00 Nitroglycerin (Nitroglycerin (Sl Tab) 0.4 Mg) 1 tab Q5M PRN SL ANGINA; Start 06/05/17 at 14:00 Folic Acid (Folic Acid) 1 mg DAILY PO Last administered on 06/12/17 09:07; Admin Dose 1 MG; Start 06/06/17 at 09:00 Miscellaneous Information (Pending Santyl Order For Wound Care) This patient badillo... PRN PRN XX WOUND CARE; Start 06/06/17 at 01:30 Collagenase (Santyl) 1 applic DAILY TOP Last administered on 06/12/17 09:09; Admin Dose 1 APPLIC; Start 06/06/17 at 15:30 Amiodarone HCl 200 mg 200 mg DAILY PO Last administered on 06/12/17 09:14; Admin Dose 200 MG; Start 06/07/17 at 09:00 Vancomycin HCl (Vancocin) 250 ml @ 125 mls/hr Q96H IVPB Last administered on 06/08/17 19:28; Admin Dose 125 MLS/HR; Start 06/08/17 at 20:00 Amikacin Sulfate (Amikacin Iv Per Pharmacy) AMIKACIN PER PHARMACY NOTE XX ; Start 06/09/17 at 17:00 Midodrine (Proamatine) 5 mg BID@17 NGT Last administered on 06/12/17 09:15 ; Admin Dose 5 MG; Start 06/10/17 at 17:00 Lansoprazole 30 mg 30 mg BID@06,18 GTB Last administered on 06/12/17 06:28; Admin Dose 30 MG; Start 06/11/17 at 06:00 Sodium Chloride (NS) 1,000 ml @ 1,000 mls/hr Q1H ONCE IV ; Start 06/12/17 at 12:00; Stop 06/12/17 at 12:59 MANUEL BUSTOS MD Jun 12, 2017 12:32
--- NOTE | 2017-06-12 13:46 | CONS ---
Date/Time of Note Date/Time of Note DATE: 06/12/17 TIME: 13:44 Consult Date/Type/Reason Admit Date/Time Jun 05, 2017 at 16:11 Initial Consult Date 06/06/17 Type of Consultation: id Objective Vital Signs Date Time Temp Pulse Resp B/P Pulse Ox O2 Delivery O2 Flow Rate FiO2 06/12/17 13:38 98.3 102 27 82/26 100 BIPAP 06/12/17 11:47 40 06/12/17 01:43 4.0 Intake and Output 06/11/17 06/11/17 06/12/17 15:00 23:00 07:00 Intake Total 340 ml 340 ml Balance 340 ml 340 ml Results/Medications Result Diagram: 06/12/1772006/12/17720 Results 24 hrs Laboratory Tests Test 06/12/17 07:21 White Blood Count 8.3 # Red Blood Count 2.49 #L Hemoglobin 7.4 #L Hematocrit 23.5 #L Mean Corpuscular Volume 94.4 Mean Corpuscular Hemoglobin 29.7 Mean Corpuscular Hemoglobin Concent 31.5 L Red Cell Distribution Width 19.9 H Platelet Count 138 L Mean Platelet Volume 10.6 H Neutrophils % 75.3 Lymphocytes % 7.3 L Monocytes % 13.6 H Eosinophils % 2.8 Basophils % 0.4 Nucleated Red Blood Cells % 0.0 Neutrophils # 6.3 Lymphocytes # 0.6 L Monocytes # 1.1 H Eosinophils # 0.2 Basophils # 0.0 Nucleated Red Blood Cells # 0.0 Sodium Level 142 Potassium Level 4.2 Chloride Level 105 Carbon Dioxide Level 26 Anion Gap 15 Blood Urea Nitrogen 64 H Creatinine 4.42 H Glucose Level 133 Calcium Level 7.8 L Medications Current Medications Ondansetron HCl (Zofran Inj) 4 mg Q6H PRN IV NAUSEA AND/OR VOMITING Last administered on 06/06/17 20:05; Admin Dose 4 MG; Start 06/05/17 at 14:00 Acetaminophen (Tylenol Tab) 650 mg Q6H PRN PO PAIN LEVEL 1-3 OR FEVER Last administered on 06/12/17 09:07; Admin Dose 650 MG; Start 06/05/17 at 14:00 Acetaminophen/ Hydrocodone Bitart ([place] (5/325)) 1 tab Q6H PRN PO MODERATE PAIN LEVEL 4-6; Start 06/05/17 at 14:00 Hydromorphone HCl (Dilaudid) 0.5 mg Q6H PRN IV SEVERE PAIN LEVEL 7-10 Last administered on 06/06/17 20:06; Admin Dose 0.5 MG; Start 06/05/17 at 15:00 Docusate Sodium (Colace) 100 mg Q12H PRN PO CONSTIPATION; Start 06/05/17 at 14: 00 Magnesium Hydroxide (Milk Of Mag) 30 ml DAILY PRN PO CONSTIPATION; Start at 14:00 Sodium Biphosphate/ Sodium Phosphate (Fleet Enema) 133 ml DAILY PRN [place] CONSTIPATION; Start 06/05/17 at 14:00 Lorazepam (Ativan) 0.5 mg Q6H PRN PO ANXIETY; Start 06/05/17 at 14:00 Vancomycin HCl (Vanco Iv Per Pharmacy) VANCOMYCIN PER PHARMACY NOTE XX ; Start 06/05/17 at 14:00 Hydralazine HCl (Apresoline) 10 mg Q6H PRN IV ELEVATED BLOOD PRESSURE; Start 06/05/17 at 14:00 Nitroglycerin (Nitroglycerin (Sl Tab) 0.4 Mg) 1 tab Q5M PRN SL ANGINA; Start 06/05/17 at 14:00 Folic Acid (Folic Acid) 1 mg DAILY PO Last administered on 06/12/17 09:07; Admin Dose 1 MG; Start 06/06/17 at 09:00 Miscellaneous Information (Pending Santyl Order For Wound Care) This patient badillo... PRN PRN XX WOUND CARE; Start 06/06/17 at 01:30 Collagenase (Santyl) 1 applic DAILY TOP Last administered on 06/12/17 09:09; Admin Dose 1 APPLIC; Start 06/06/17 at 15:30 Amiodarone HCl 200 mg 200 mg DAILY PO Last administered on 06/12/17 09:14; Admin Dose 200 MG; Start 06/07/17 at 09:00 Vancomycin HCl (Vancocin) 250 ml @ 125 mls/hr Q96H IVPB Last administered on 06/08/17 19:28; Admin Dose 125 MLS/HR; Start 06/08/17 at 20:00 Amikacin Sulfate (Amikacin Iv Per Pharmacy) AMIKACIN PER PHARMACY NOTE XX ; Start 11/11/17 at 17:00 Midodrine (Proamatine) 5 mg BID@, NGT Last administered on 06/12/17 09:15 ; Admin Dose 5 MG; Start 06/10/17 at 17:00 Lansoprazole (Prevacid) 30 mg BID@06,18 GTB Last administered on 06/12/17 06: 28; Admin Dose 30 MG; Start 06/11/17 at 06:00 Assessment/Plan Chief Complaint/Hosp Course SUBJECTIVE: The patient remains lethargic, on Bipap, more congested, afebrile. MICROBIOLOGY: Blood, urine cultures remain negative. Patient has right IJ permcath, PICC and permanent pacemaker. ANTIMICROBIALS: 1. Vancomycin. 2. Amikacin. PHYSICAL EXAMINATION: GENERAL: This is a chronically ill-appearing, elderly man who is lethargic, in no distress. HEENT: Head atraumatic, normocephalic. Sclerae anicteric. Buccal mucosa dry. NECK: Supple. CHEST: Rise symmetrical. Breath sounds diminished to bases. HEART: S1, S2. ABDOMEN: Soft. Bowel tones hypoactive. EXTREMITIES: Without cyanosis. Mottled and cyanotic. ASSESSMENT: 1. Sepsis 2. Respiratory failure/fluid overload 2. Pneumonia, possibly ongoing aspiration. 3. [id number] anemia, status post EGD that revealed esophagitis and gastritis. 4. End-stage renal disease, hemodialysis dependent. 5. Coronary artery disease, history of permanent pacemaker. 6. Failure to thrive and dysphagia, status post percutaneous endoscopic gastrostomy. 7. History of enterococcal bacteremia on previous admission. PLAN: Clinically unchanged, continue abx, Bipap, prognosis poor DW staff Problems: JACK CHAN NP Jun 12, 2017 13:46
[2017-06-12] MEDS ORDERED: HEPARIN 1000 UNITS/ML 10 ML INJ CATHETER SCH (15:30)
[2017-06-12] MEDS: VANCOMYCIN 1 GM in NS 250 ML IVPB SCH (20:09)
[2017-06-13] VITALS (74 sets, daily range): BP systolic 91–131; BP diastolic 24–68; PULSE 70–111; RESP 13–37
[2017-06-13] MEDS: ALBUTEROL/IPRATROPIUM (NEB) 3 ML AMP HHN PRN (04:54)
[2017-06-13] MEDS: LANSOPRAZOLE 30 MG CAP GTB SCH ×2 (05:24→17:09)
[2017-06-13 05:53] LABS: BASOPHILS % 0.5 % (0.0-2.0); EOSINOPHILS # 0.5 10^3/ul (0.0-0.5); EOSINOPHILS % 6.2 % (0.0-7.0); HEMATOCRIT 27.6 % (42.0-52.0); HEMOGLOBIN 9.1 g/dl (14.0-18.0); LYMPHOCYTES # 0.7 10^3/ul (0.8-2.9); LYMPHOCYTES % 7.8 % (15.0-51.0); MEAN CORPUSCULAR HEMOGLOBIN 30.3 pg (29.0-33.0); MEAN PLATELET VOLUME 10.6 fl (7.4-10.4); MONOCYTE # 0.9 10^3/ul (0.3-0.9); MONOCYTES % 10.1 % (0.0-11.0); NEUTROPHIL # 6.6 10^3/ul (1.6-7.5); NEUTROPHILS % 74.7 % (39.0-77.0); PLATELET COUNT 119 10^3/UL (140-415); RED CELL DISTRIBUTION WIDTH 18.8 % (11.5-14.5); WHITE BLOOD COUNT 8.8 10^3/ul (4.8-10.8)
[2017-06-13] MEDS: CALCIUM ACETATE 667 MG CAP PO SCH ×3 (06:03→17:09)
[2017-06-13 06:32] LABS: CALCIUM 7.6 mg/dl (8.4-10.2); CREATININE 3.31 mg/dl (0.61-1.24); POTASSIUM 3.7 mmol/L (3.5-5.1)
[2017-06-13] MEDS: AMIODARONE 200 MG TAB PO SCH (08:39)
[2017-06-13] MEDS: FOLIC ACID 1 MG TAB PO SCH (08:39)
[2017-06-13] MEDS: MIDODRINE 5 MG TAB NGT SCH ×2 (08:40→17:09)
[2017-06-13] MEDS: COLLAGENASE 30 GM TUBE TOP SCH (08:40)
--- NOTE | 2017-06-13 09:14 | PN ---
Date/Time of Note Date/Time of Note DATE: 06/13/17 TIME: 09:09 Assessment/Plan VTE Prophylaxis VTE Prophylaxis Intervention: SCD's Lines/Catheters IV Catheter Type (from Nrsg): PERMA CATH Urinary Cath still in place: No Assessment/Plan Assessment/Plan 89 yo M with dementia, ESRD on HD admitted for septic shock, also found to have multiple wounds. Went into shock again 06.12 requiring transfer to the ICU for pressor support. #septic shock with negative cultures and no radiographic evidence of pna: abx as per ID. #troponinemia 2/2 demand from sepsis: cards on consult #ESRD: HD as per renal #anemia: EGD with gastritis, cscope declined by family #h/o SSS: PM in place Goals of care: spoke to son yesterday, he stated he wanted everything up to CPR for patient. He would want pt intubated if indicated continue ICU monitoring today given pt will be getting HD later today critical care time 30 minutes Subjective 24 Hr Interval Summary Free Text/Dictation Pt weaned off levo overnight, slated for HD today Exam/Review of Systems Vital Signs Vitals Vital Signs Date Time Temp Pulse Resp B/P Pulse Ox O2 Delivery O2 Flow Rate FiO2 06/13/17 08:00 98.5 103 16 97/37 100 BIPAP 06/13/17 04:55 30 06/12/17 01:43 4.0 Intake and Output 06/12/17 06/12/17 06/13/17 14:59 22:59 06:59 Intake Total 2079.30 ml 445 ml Output Total 2000 ml Balance 79.30 ml 445 ml Exam ill appearing, wearing bipap, uncomfortable no mrg poor air movement abd soft +multiple pressure ulcers Results Result Diagram: 06/13/17 0500 06/13/17 0500 Results 24 hrs Laboratory Tests Test 06/12/17 18:04 06/13/17 05:00 06/13/17 05:05 Stool Occult Blood POSITIVE White Blood Count 8.8 Red Blood Count 3.00 #L Hemoglobin 9.1 #L Hematocrit 27.6 L Mean Corpuscular Volume 92.0 Mean Corpuscular Hemoglobin 30.3 Mean Corpuscular Hemoglobin Concent 33.0 Red Cell Distribution Width 18.8 H Platelet Count 119 L Mean Platelet Volume 10.6 H Neutrophils % 74.7 Lymphocytes % 7.8 L Monocytes % 10.1 Eosinophils % 6.2 Basophils % 0.5 Nucleated Red Blood Cells % 0.0 Neutrophils # 6.6 Lymphocytes # 0.7 L Monocytes # 0.9 Eosinophils # 0.5 Basophils # 0.0 Nucleated Red Blood Cells # 0.0 Sodium Level 141 Potassium Level 3.7 Chloride Level 107 Carbon Dioxide Level 30 Anion Gap 8 Blood Urea Nitrogen 44 #H Creatinine 3.31 #H Glucose Level 109 Calcium Level 7.6 L Lab Scanned Report BLOOD TRANSFUSION Medications Medications Current Medications Ondansetron HCl (Zofran Inj) 4 mg Q6H PRN IV NAUSEA AND/OR VOMITING Last administered on 06/06/17 20:05; Admin Dose 4 MG; Start 06/05/17 at 14:00 Acetaminophen (Tylenol Tab) 650 mg Q6H PRN PO PAIN LEVEL 1-3 OR FEVER Last administered on 06/12/17 09:07; Admin Dose 650 MG; Start 06/05/17 at 14:00 Acetaminophen/ Hydrocodone Bitart ([place] (5/325)) 1 tab Q6H PRN PO MODERATE PAIN LEVEL 4-6; Start 06/05/17 at 14:00 Hydromorphone HCl (Dilaudid) 0.5 mg Q6H PRN IV SEVERE PAIN LEVEL 7-10 Last administered on 06/06/17 20:06; Admin Dose 0.5 MG; Start 06/05/17 at 15:00 Docusate Sodium (Colace) 100 mg Q12H PRN PO CONSTIPATION; Start 06/05/17 at 14: 00 Magnesium Hydroxide (Milk Of Mag) 30 ml DAILY PRN PO CONSTIPATION; Start at 14:00 Sodium Biphosphate/ Sodium Phosphate (Fleet Enema) 133 ml DAILY PRN [place] CONSTIPATION; Start 06/05/17 at 14:00 Lorazepam (Ativan) 0.5 mg Q6H PRN PO ANXIETY; Start 06/05/17 at 14:00 Vancomycin HCl (Vanco Iv Per Pharmacy) VANCOMYCIN PER PHARMACY NOTE XX ; Start 06/05/17 at 14:00 Hydralazine HCl (Apresoline) 10 mg Q6H PRN IV ELEVATED BLOOD PRESSURE; Start 06/05/17 at 14:00 Nitroglycerin (Nitroglycerin (Sl Tab) 0.4 Mg) 1 tab Q5M PRN SL ANGINA; Start 06/05/17 at 14:00 Folic Acid (Folic Acid) 1 mg DAILY PO Last administered on 06/13/17 08:39; Admin Dose 1 MG; Start 06/06/17 at 09:00 Miscellaneous Information (Pending Santyl Order For Wound Care) This patient badillo... PRN PRN XX WOUND CARE; Start 06/06/17 at 01:30 Collagenase (Santyl) 1 applic DAILY TOP Last administered on 06/13/17 08:40; Admin Dose 1 APPLIC; Start 06/06/17 at 15:30 Amiodarone HCl 200 mg 200 mg DAILY PO Last administered on 06/13/17 08:39; Admin Dose 200 MG; Start 06/07/17 at 09:00 Vancomycin HCl (Vancocin) 250 ml @ 125 mls/hr Q96H IVPB Last administered on 06/12/17 20:09; Admin Dose 125 MLS/HR; Start 06/08/17 at 20:00 Amikacin Sulfate (Amikacin Iv Per Pharmacy) AMIKACIN PER PHARMACY NOTE XX ; Start 06/09/17 at 17:00 Midodrine (Proamatine) 5 mg BID@,17 NGT Last administered on 06/13/17 08:40 ; Admin Dose 5 MG; Start 06/10/17 at 17:00 Lansoprazole 30 mg 30 mg BID@,18 GTB Last administered on 06/13/17 05:24; Admin Dose 30 MG; Start 06/11/17 at 06:00 Norepinephrine/ Dextrose (Levophed/D5W) 500 ml @ 0 mls/hr TITRATE IV ; Start at 16:30 MANUEL BUSTOS MD Jun 13, 2017 09:14
--- NOTE | 2017-06-13 09:38 | PN ---
Date/Time of Note Date/Time of Note DATE: 06/13/17 TIME: 09:36 Assessment/Plan VTE Prophylaxis VTE Prophylaxis Intervention: SCD's Lines/Catheters [facility] PermaCath Urinary Cath still in place: No Assessment/Plan Chief Complaint/Hosp Course Summary Assessment and Plan: Assessment: Positive FOBT Anemia EGD 06/06/17 Impression: Esophagitis Gastritis. Rule out H pylori. Biopsied (likely cause of bleeding) GT in place Plan: Continue PPI bid Continue to monitor H/H- transfuse as needed Stool for OB- positive- however family declines colonoscopy Patient remains in ICU- with very poor prognosis Recommend palliative therapy- although family does not consent to palliative care at this time Patient seen in collaboration with Subjective: Course reviewed with nursing staff Patient interviewed and examined All labs, imaging and other results reviewed Patient with very poor prognosis, considered high risk for colonoscopy- family agrees and does not want colonoscopy at this time recommend palliative therapy, although family currently does not consent to palliative care Code status DNR, plan to continue to monitor h/h- transfuse as needed PHYSICAL EXAMINATION: GENERAL: Non-verbal, chronically ill appearing SKIN: No lesions, no stigmata chronic liver disease, g-tube in place. LYMPHATIC: No palpable lymphadenopathy. HEAD: Normocephalic, atraumatic, no tenderness. EYES: Pupils equal reactive to light and accommodation, full extraocular movements, sclera clear, non-icteric, no discharge. EARS/NOSE AND THROAT: Ears normal, nose normal, oropharynx normal, oral membranes well hydrated without lesions. NECK: Supple, no masses, thyroid normal, CHEST: Inspection within normal limits. CARDIOVASCULAR: Heart: irregular RESPIRATORY: Lungs diminished GASTROINTESTINAL AND LIVER: Abdomen: Soft, non tenderness, non-distended, no hernias, no masses, no organomegaly, no ascites, no guarding, no rebound tenderness, normoactive bowel sounds. Rectal: OB positive Problems: Exam/Review of Systems Vital Signs Vitals Vital Signs Date Time Temp Pulse Resp B/P Pulse Ox O2 Delivery O2 Flow Rate FiO2 06/13/17 08:00 98.5 103 16 97/37 100 BIPAP 06/13/17 04:55 30 06/12/17 01:43 4.0 Intake and Output 06/12/17 06/12/17 06/13/17 15:00 23:00 07:00 Intake Total 1005.62 ml 1193.68 ml 325 ml Output Total 2000 ml Balance 1005.62 ml -806.32 ml 325 ml Results Result Diagram: 06/13/17 0500 06/13/17 0500 Results 24 hrs Laboratory Tests Test 06/12/17 18:04 06/13/17 05:00 06/13/17 05:05 Stool Occult Blood POSITIVE White Blood Count 8.8 Red Blood Count 3.00 #L Hemoglobin 9.1 #L Hematocrit 27.6 L Mean Corpuscular Volume 92.0 Mean Corpuscular Hemoglobin 30.3 Mean Corpuscular Hemoglobin Concent 33.0 Red Cell Distribution Width 18.8 H Platelet Count 119 L Mean Platelet Volume 10.6 H Neutrophils % 74.7 Lymphocytes % 7.8 L Monocytes % 10.1 Eosinophils % 6.2 Basophils % 0.5 Nucleated Red Blood Cells % 0.0 Neutrophils # 6.6 Lymphocytes # 0.7 L Monocytes # 0.9 Eosinophils # 0.5 Basophils # 0.0 Nucleated Red Blood Cells # 0.0 Sodium Level 141 Potassium Level 3.7 Chloride Level 107 Carbon Dioxide Level 30 Anion Gap 8 Blood Urea Nitrogen 44 #H Creatinine 3.31 #H Glucose Level 109 Calcium Level 7.6 L Lab Scanned Report BLOOD TRANSFUSION Medications Medications Current Medications Ondansetron HCl (Zofran Inj) 4 mg Q6H PRN IV NAUSEA AND/OR VOMITING Last administered on 06/06/17 20:05; Admin Dose 4 MG; Start 06/05/17 at 14:00 Acetaminophen (Tylenol Tab) 650 mg Q6H PRN PO PAIN LEVEL 1-3 OR FEVER Last administered on 06/12/17 09:07; Admin Dose 650 MG; Start 06/05/17 at 14:00 Acetaminophen/ Hydrocodone Bitart ([place] (5/325)) 1 tab Q6H PRN PO MODERATE PAIN LEVEL 4-6; Start 06/05/17 at 14:00 Hydromorphone HCl (Dilaudid) 0.5 mg Q6H PRN IV SEVERE PAIN LEVEL 7-10 Last administered on 06/06/17 20:06; Admin Dose 0.5 MG; Start 06/05/17 at 15:00 Docusate Sodium (Colace) 100 mg Q12H PRN PO CONSTIPATION; Start 06/05/17 at 14: 00 Magnesium Hydroxide (Milk Of Mag) 30 ml DAILY PRN PO CONSTIPATION; Start at 14:00 Sodium Biphosphate/ Sodium Phosphate (Fleet Enema) 133 ml DAILY PRN [place] CONSTIPATION; Start 06/05/17 at 14:00 Lorazepam (Ativan) 0.5 mg Q6H PRN PO ANXIETY; Start 06/05/17 at 14:00 Vancomycin HCl (Vanco Iv Per Pharmacy) VANCOMYCIN PER PHARMACY NOTE XX ; Start 06/05/17 at 14:00 Hydralazine HCl (Apresoline) 10 mg Q6H PRN IV ELEVATED BLOOD PRESSURE; Start 06/05/17 at 14:00 Nitroglycerin (Nitroglycerin (Sl Tab) 0.4 Mg) 1 tab Q5M PRN SL ANGINA; Start 06/05/17 at 14:00 Folic Acid (Folic Acid) 1 mg DAILY PO Last administered on 06/13/17 08:39; Admin Dose 1 MG; Start 06/06/17 at 09:00 Miscellaneous Information (Pending Santyl Order For Wound Care) This patient badillo... PRN PRN XX WOUND CARE; Start 06/06/17 at 01:30 Collagenase (Santyl) 1 applic DAILY TOP Last administered on 06/13/17 08:40; Admin Dose 1 APPLIC; Start 06/06/17 at 15:30 Amiodarone HCl 200 mg 200 mg DAILY PO Last administered on 06/13/17 08:39; Admin Dose 200 MG; Start 06/07/17 at 09:00 Vancomycin HCl (Vancocin) 250 ml @ 125 mls/hr Q96H IVPB Last administered on 06/12/17 20:09; Admin Dose 125 MLS/HR; Start 06/08/17 at 20:00 Amikacin Sulfate (Amikacin Iv Per Pharmacy) AMIKACIN PER PHARMACY NOTE XX ; Start 06/09/17 at 17:00 Midodrine (Proamatine) 5 mg BID@ NGT Last administered on 06/13/17 08:40 ; Admin Dose 5 MG; Start 06/10/17 at 17:00 Lansoprazole 30 mg 30 mg BID@06,18 GTB Last administered on 06/13/17 05:24; Admin Dose 30 MG; Start 06/11/17 at 06:00 Norepinephrine/ Dextrose (Levophed/D5W) 500 ml @ 0 mls/hr TITRATE IV ; Start at 16:30 DAISY ANTONIO Jun 13, 2017 09:37
--- NOTE | 2017-06-13 10:58 | CONS ---
Date/Time of Note Date/Time of Note DATE: 06/13/17 TIME: 10:57 Consult Date/Type/Reason Admit Date/Time Jun 05, 2017 at 16:11 Initial Consult Date 06/06/17 Type of Consultation: Pulmonary Subjective Patient transferred to intensive care unit yesterday for increased respiratory distress and hypotension. PICC line was placed started on vasopressor support. Currently requiring noninvasive positive pressure ventilation for hypoxemic respiratory failure. Objective Vital Signs Date Time Temp Pulse Resp B/P Pulse Ox O2 Delivery O2 Flow Rate FiO2 06/13/17 08:00 98.5 103 16 97/37 100 BIPAP 06/13/17 04:55 30 06/12/17 01:43 4.0 Intake and Output 06/12/17 06/12/17 06/13/17 15:00 23:00 07:00 Intake Total 1005.62 ml 1193.68 ml 325 ml Output Total 2000 ml Balance 1005.62 ml -806.32 ml 325 ml Exam GENERAL: Elderly gentleman on BiPAP. VITAL SIGNS: per chart NECK: Supple. No JVD or lymphadenopathy. CARDIAC EXAM: S1, S2. No added sounds or murmurs. CHEST: Diminished air entry both lung bases. Poor inspiratory effort. ABDOMEN: Soft, nontender. No guarding or rebound. EXTREMITIES: No cyanosis, clubbing or edema. NEUROLOGIC: Generalized weakness. No focal deficits. Results/Medications Result Diagram: 06/13/17 0500 06/13/17 0500 Results 24 hrs Laboratory Tests Test 06/12/17 18:04 06/13/17 05:00 06/13/17 05:05 Stool Occult Blood POSITIVE White Blood Count 8.8 Red Blood Count 3.00 #L Hemoglobin 9.1 #L Hematocrit 27.6 L Mean Corpuscular Volume 92.0 Mean Corpuscular Hemoglobin 30.3 Mean Corpuscular Hemoglobin Concent 33.0 Red Cell Distribution Width 18.8 H Platelet Count 119 L Mean Platelet Volume 10.6 H Neutrophils % 74.7 Lymphocytes % 7.8 L Monocytes % 10.1 Eosinophils % 6.2 Basophils % 0.5 Nucleated Red Blood Cells % 0.0 Neutrophils # 6.6 Lymphocytes # 0.7 L Monocytes # 0.9 Eosinophils # 0.5 Basophils # 0.0 Nucleated Red Blood Cells # 0.0 Sodium Level 141 Potassium Level 3.7 Chloride Level 107 Carbon Dioxide Level 30 Anion Gap 8 Blood Urea Nitrogen 44 #H Creatinine 3.31 #H Glucose Level 109 Calcium Level 7.6 L Lab Scanned Report BLOOD TRANSFUSION Medications Current Medications Ondansetron HCl (Zofran Inj) 4 mg Q6H PRN IV NAUSEA AND/OR VOMITING Last administered on 06/06/17 20:05; Admin Dose 4 MG; Start 06/05/17 at 14:00 Acetaminophen (Tylenol Tab) 650 mg Q6H PRN PO PAIN LEVEL 1-3 OR FEVER Last administered on 06/12/17 09:07; Admin Dose 650 MG; Start 06/05/17 at 14:00 Acetaminophen/ Hydrocodone Bitart ([place] (5/325)) 1 tab Q6H PRN PO MODERATE PAIN LEVEL 4-6; Start 06/05/17 at 14:00 Hydromorphone HCl (Dilaudid) 0.5 mg Q6H PRN IV SEVERE PAIN LEVEL 7-10 Last administered on 06/06/17 20:06; Admin Dose 0.5 MG; Start 06/05/17 at 15:00 Docusate Sodium (Colace) 100 mg Q12H PRN PO CONSTIPATION; Start 06/05/17 at 14: 00 Magnesium Hydroxide (Milk Of Mag) 30 ml DAILY PRN PO CONSTIPATION; Start at 14:00 Sodium Biphosphate/ Sodium Phosphate (Fleet Enema) 133 ml DAILY PRN [place] CONSTIPATION; Start 06/05/17 at 14:00 Lorazepam (Ativan) 0.5 mg Q6H PRN PO ANXIETY; Start 06/05/17 at 14:00 Vancomycin HCl (Vanco Iv Per Pharmacy) VANCOMYCIN PER PHARMACY NOTE XX ; Start 06/05/17 at 14:00 Hydralazine HCl (Apresoline) 10 mg Q6H PRN IV ELEVATED BLOOD PRESSURE; Start 06/05/17 at 14:00 Nitroglycerin (Nitroglycerin (Sl Tab) 0.4 Mg) 1 tab Q5M PRN SL ANGINA; Start 06/05/17 at 14:00 Folic Acid (Folic Acid) 1 mg DAILY PO Last administered on 06/13/17 08:39; Admin Dose 1 MG; Start 06/06/17 at 09:00 Miscellaneous Information ([facility]) This patient badillo... PRN PRN XX WOUND CARE; Start 06/06/17 at 01:30 Collagenase (Santyl) 1 applic DAILY TOP Last administered on 06/13/17 08:40; Admin Dose 1 APPLIC; Start 06/06/17 at 15:30 Amiodarone HCl 200 mg 200 mg DAILY PO Last administered on 06/13/17 08:39; Admin Dose 200 MG; Start 06/07/17 at 09:00 Vancomycin HCl (Vancocin) 250 ml @ 125 mls/hr Q96H IVPB Last administered on 06/12/17 20:09; Admin Dose 125 MLS/HR; Start 06/08/17 at 20:00 Amikacin Sulfate (Amikacin Iv Per Pharmacy) AMIKACIN PER PHARMACY NOTE XX ; Start 06/09/17 at 17:00 Midodrine (Proamatine) 5 mg BID@17 NGT Last administered on 06/13/17 08:40 ; Admin Dose 5 MG; Start 06/10/17 at 17:00 Lansoprazole 30 mg 30 mg BID@0618 GTB Last administered on 06/13/17 05:24; Admin Dose 30 MG; Start 06/11/17 at 06:00 Norepinephrine/ Dextrose (Levophed/D5W) 500 ml @ 0 mls/hr TITRATE IV Last administered on 06/13/17 09:50; Admin Dose 9.37 MLS/HR; Start 06/12/17 at 16: 30 Assessment/Plan Chief Complaint/Hosp Course IMPRESSION 1. Hypoxemic respiratory failure, likely secondary to volume overload possible component of aspiration pneumonia also. 2. Likely underlying pneumonia, possibly health-care associated. 3. Dysphagia. 4. Dementia. 5. End-stage renal failure. Hemodialysis dependent. 6. Anemia likely secondary to chronic renal disease. 7. Septic shock. RECOMMENDATIONS 1. Continue broad-spectrum antibiotics. 2. Hemodialysis as tolerated. 3. Broad-spectrum antibiotics. 4. Aspiration precautions. 5. Continue noninvasive positive pressure ventilation. Son wishes temporary intubation if necessary. I had a long discussion with patient son several days ago explaining extremely poor prognosis. He wishes all measures excluding CPR to be performed. Consider bioethics consultation as aggressive care in this case is likely futile. Problems: TIMBO RAMEY MD, [facility] Jun 13, 2017 10:58
--- NOTE | 2017-06-13 11:43 | CONS ---
Date/Time of Note Date/Time of Note DATE: 06/13/17 TIME: 11:41 Assessment/Plan Assessment/Plan Additional Assessment/Plan Septic shock, currently on IV pressor Labile blood pressure with hypertension Preserved ejection fraction End-stage renal disease on hemodialysis Mild to moderate aortic stenosis Respiratory failure on BiPAP -IV pressor to maintain SBP greater than 90 and/or map above 60, fluid management via hemodialysis as per nephrology colleagues, currently on BiPAP. Antibiotics as per infectious disease. No antihypertensives at the current time given hypotension. Consultation Date/Type/Reason Admit Date/Time Jun 05, 2017 at 16:11 Initial Consult Date 06/06/17 Type of Consultation: cv 24 HR Interval Summary Free Text/Dictation Patient moved to the ICU secondary to respiratory distress and hypotension. Currently on BiPAP, on IV pressor undergoing hemodialysis Exam/Review of Systems Vital Signs Vitals Vital Signs Date Time Temp Pulse Resp B/P Pulse Ox O2 Delivery O2 Flow Rate FiO2 06/13/17 11:00 91 22 105/32 100 BIPAP 06/13/17 10:58 30 06/13/17 08:00 98.5 06/12/17 01:43 4.0 Intake and Output 06/12/17 06/12/17 06/13/17 14:59 22:59 06:59 Intake Total 2079.30 ml 445 ml Output Total 2000 ml Balance 79.30 ml 445 ml Exam On BiPAP, undergoing hemodialysis, no apparent distress Head: normocephalic Respiratory: other (Coarse breath sounds bilaterally, no wheezing) Cardiovascular: other (S1-S2 heard), regular rate and rhythm Gastrointestinal: bowel sounds, non-tender, soft Extremities: edema Results Result Diagram: 06/13/17 0500 06/13/17 0500 Results 24 hrs Laboratory Tests Test 06/12/17 18:04 06/13/17 05:00 06/13/17 05:05 Stool Occult Blood POSITIVE White Blood Count 8.8 Red Blood Count 3.00 #L Hemoglobin 9.1 #L Hematocrit 27.6 L Mean Corpuscular Volume 92.0 Mean Corpuscular Hemoglobin 30.3 Mean Corpuscular Hemoglobin Concent 33.0 Red Cell Distribution Width 18.8 H Platelet Count 119 L Mean Platelet Volume 10.6 H Neutrophils % 74.7 Lymphocytes % 7.8 L Monocytes % 10.1 Eosinophils % 6.2 Basophils % 0.5 Nucleated Red Blood Cells % 0.0 Neutrophils # 6.6 Lymphocytes # 0.7 L Monocytes # 0.9 Eosinophils # 0.5 Basophils # 0.0 Nucleated Red Blood Cells # 0.0 Sodium Level 141 Potassium Level 3.7 Chloride Level 107 Carbon Dioxide Level 30 Anion Gap 8 Blood Urea Nitrogen 44 #H Creatinine 3.31 #H Glucose Level 109 Calcium Level 7.6 L Lab Scanned Report BLOOD TRANSFUSION Medications Medications Current Medications Ondansetron HCl (Zofran Inj) 4 mg Q6H PRN IV NAUSEA AND/OR VOMITING Last administered on 06/06/17 20:05; Admin Dose 4 MG; Start 06/05/17 at 14:00 Acetaminophen (Tylenol Tab) 650 mg Q6H PRN PO PAIN LEVEL 1-3 OR FEVER Last administered on 06/12/17 09:07; Admin Dose 650 MG; Start 06/05/17 at 14:00 Acetaminophen/ Hydrocodone Bitart ([place] (5/325)) 1 tab Q6H PRN PO MODERATE PAIN LEVEL 4-6; Start 06/05/17 at 14:00 Hydromorphone HCl (Dilaudid) 0.5 mg Q6H PRN IV SEVERE PAIN LEVEL 7-10 Last administered on 06/06/17 20:06; Admin Dose 0.5 MG; Start 06/05/17 at 15:00 Docusate Sodium (Colace) 100 mg Q12H PRN PO CONSTIPATION; Start 06/05/17 at 14: 00 Magnesium Hydroxide (Milk Of Mag) 30 ml DAILY PRN PO CONSTIPATION; Start at 14:00 Sodium Biphosphate/ Sodium Phosphate (Fleet Enema) 133 ml DAILY PRN [place] CONSTIPATION; Start 06/05/17 at 14:00 Lorazepam (Ativan) 0.5 mg Q6H PRN PO ANXIETY; Start 06/05/17 at 14:00 Vancomycin HCl (Vanco Iv Per Pharmacy) VANCOMYCIN PER PHARMACY NOTE XX ; Start 06/05/17 at 14:00 Hydralazine HCl (Apresoline) 10 mg Q6H PRN IV ELEVATED BLOOD PRESSURE; Start 06/05/17 at 14:00 Nitroglycerin (Nitroglycerin (Sl Tab) 0.4 Mg) 1 tab Q5M PRN SL ANGINA; Start 06/05/17 at 14:00 Folic Acid (Folic Acid) 1 mg DAILY PO Last administered on 06/13/17 08:39; Admin Dose 1 MG; Start 06/06/17 at 09:00 Miscellaneous Information (Pending [facility]yl Order For Wound Care) This patient badillo... PRN PRN XX WOUND CARE; Start 06/06/17 at 01:30 Collagenase (Santyl) 1 applic DAILY TOP Last administered on 06/13/17 08:40; Admin Dose 1 APPLIC; Start 06/06/17 at 15:30 Amiodarone HCl 200 mg 200 mg DAILY PO Last administered on 06/13/17 08:39; Admin Dose 200 MG; Start 06/07/17 at 09:00 Vancomycin HCl (Vancocin) 250 ml @ 125 mls/hr Q96H IVPB Last administered on 06/12/17 20:09; Admin Dose 125 MLS/HR; Start 06/08/17 at 20:00 Amikacin Sulfate (Amikacin Iv Per Pharmacy) AMIKACIN PER PHARMACY NOTE XX ; Start 06/09/17 at 17:00 Midodrine (Proamatine) 5 mg BID@09,17 NGT Last administered on 06/13/17 08:40 ; Admin Dose 5 MG; Start 06/10/17 at 17:00 Lansoprazole 30 mg 30 mg BID@06,18 GTB Last administered on 06/13/17 05:24; Admin Dose 30 MG; Start 06/11/17 at 06:00 Norepinephrine/ Dextrose (Levophed/D5W) 500 ml @ 0 mls/hr TITRATE IV Last administered on 06/13/17 09:50; Admin Dose 9.37 MLS/HR; Start 06/12/17 at 16: 30 Alberto Good DO Jun 13, 2017 11:43
--- NOTE | 2017-06-13 12:15 | CONS ---
Date/Time of Note Date/Time of Note DATE: 06/13/17 TIME: 12:14 Consult Date/Type/Reason Admit Date/Time Jun 05, 2017 at 16:11 Initial Consult Date 06/06/17 Type of Consultation: ID Objective Vital Signs Date Time Temp Pulse Resp B/P Pulse Ox O2 Delivery O2 Flow Rate FiO2 06/13/17 11:00 91 22 105/32 100 BIPAP 06/13/17 10:58 30 06/13/17 08:00 98.5 06/12/17 01:43 4.0 Intake and Output 06/12/17 06/12/17 06/13/17 15:00 23:00 07:00 Intake Total 1005.62 ml 1193.68 ml 325 ml Output Total 2000 ml Balance 1005.62 ml -806.32 ml 325 ml Results/Medications Result Diagram: 06/13/17 0500 06/13/17 0500 Results 24 hrs Laboratory Tests Test 06/12/17 18:04 06/13/17 05:00 06/13/17 05:05 Stool Occult Blood POSITIVE White Blood Count 8.8 Red Blood Count 3.00 #L Hemoglobin 9.1 #L Hematocrit 27.6 L Mean Corpuscular Volume 92.0 Mean Corpuscular Hemoglobin 30.3 Mean Corpuscular Hemoglobin Concent 33.0 Red Cell Distribution Width 18.8 H Platelet Count 119 L Mean Platelet Volume 10.6 H Neutrophils % 74.7 Lymphocytes % 7.8 L Monocytes % 10.1 Eosinophils % 6.2 Basophils % 0.5 Nucleated Red Blood Cells % 0.0 Neutrophils # 6.6 Lymphocytes # 0.7 L Monocytes # 0.9 Eosinophils # 0.5 Basophils # 0.0 Nucleated Red Blood Cells # 0.0 Sodium Level 141 Potassium Level 3.7 Chloride Level 107 Carbon Dioxide Level 30 Anion Gap 8 Blood Urea Nitrogen 44 #H Creatinine 3.31 #H Glucose Level 109 Calcium Level 7.6 L Lab Scanned Report BLOOD TRANSFUSION Medications Current Medications Ondansetron HCl (Zofran Inj) 4 mg Q6H PRN IV NAUSEA AND/OR VOMITING Last administered on 06/06/17 20:05; Admin Dose 4 MG; Start 06/05/17 at 14:00 Acetaminophen (Tylenol Tab) 650 mg Q6H PRN PO PAIN LEVEL 1-3 OR FEVER Last administered on 06/12/17 09:07; Admin Dose 650 MG; Start 06/05/17 at 14:00 Acetaminophen/ Hydrocodone Bitart ([place] (5/325)) 1 tab Q6H PRN PO MODERATE PAIN LEVEL 4-6; Start 06/05/17 at 14:00 Hydromorphone HCl (Dilaudid) 0.5 mg Q6H PRN IV SEVERE PAIN LEVEL 7-10 Last administered on 06/06/17 20:06; Admin Dose 0.5 MG; Start 06/05/17 at 15:00 Docusate Sodium (Colace) 100 mg Q12H PRN PO CONSTIPATION; Start 06/05/17 at 14: 00 Magnesium Hydroxide (Milk Of Mag) 30 ml DAILY PRN PO CONSTIPATION; Start at 14:00 Sodium Biphosphate/ Sodium Phosphate (Fleet Enema) 133 ml DAILY PRN [place] CONSTIPATION; Start 06/05/17 at 14:00 Lorazepam (Ativan) 0.5 mg Q6H PRN PO ANXIETY; Start 06/05/17 at 14:00 Vancomycin HCl (Vanco Iv Per Pharmacy) VANCOMYCIN PER PHARMACY NOTE XX ; Start 06/05/17 at 14:00 Hydralazine HCl (Apresoline) 10 mg Q6H PRN IV ELEVATED BLOOD PRESSURE; Start 06/05/17 at 14:00 Nitroglycerin (Nitroglycerin (Sl Tab) 0.4 Mg) 1 tab Q5M PRN SL ANGINA; Start 06/05/17 at 14:00 Folic Acid (Folic Acid) 1 mg DAILY PO Last administered on 06/13/17 08:39; Admin Dose 1 MG; Start 06/06/17 at 09:00 Miscellaneous Information (Pending Santyl Order For Wound Care) This patient badillo... PRN PRN XX WOUND CARE; Start 06/06/17 at 01:30 Collagenase (Santyl) 1 applic DAILY TOP Last administered on 06/13/17 08:40; Admin Dose 1 APPLIC; Start 06/06/17 at 15:30 Amiodarone HCl 200 mg 200 mg DAILY PO Last administered on 06/13/17 08:39; Admin Dose 200 MG; Start 06/07/17 at 09:00 Vancomycin HCl (Vancocin) 250 ml @ 125 mls/hr Q96H IVPB Last administered on 06/12/17 20:09; Admin Dose 125 MLS/HR; Start 06/08/17 at 20:00 Amikacin Sulfate (Amikacin Iv Per Pharmacy) AMIKACIN PER PHARMACY NOTE XX ; Start 06/09/17 at 17:00 Midodrine (Proamatine) 5 mg BID@ NGT Last administered on 06/13/17 08:40 ; Admin Dose 5 MG; Start 06/10/17 at 17:00 Lansoprazole 30 mg 30 mg BID@18 GTB Last administered on 06/13/17 05:24; Admin Dose 30 MG; Start 06/11/17 at 06:00 Norepinephrine/ Dextrose (Levophed/D5W) 500 ml @ 0 mls/hr TITRATE IV Last administered on 06/13/17 09:50; Admin Dose 9.37 MLS/HR; Start 06/12/17 at 16: 30 Assessment/Plan Chief Complaint/Hosp Course SUBJECTIVE: In HD, on Bipap, Levophed gtt, lethargic, NAD. MICROBIOLOGY: Blood, urine cultures remain negative. Patient has right IJ permcath, PICC and permanent pacemaker. ANTIMICROBIALS: 1. Vancomycin. 2. Amikacin. PHYSICAL EXAMINATION: GENERAL: This is a chronically ill-appearing, elderly man who is lethargic, in no distress. HEENT: Head atraumatic, normocephalic. Sclerae anicteric. Buccal mucosa dry. NECK: Supple. CHEST: Rise symmetrical. Breath sounds diminished to bases. HEART: S1, S2. ABDOMEN: Soft. Bowel tones hypoactive. EXTREMITIES: Without cyanosis. Mottled and cyanotic. ASSESSMENT: 1. Sepsis with shock 2. Respiratory failure/fluid overload 2. Pneumonia, possibly ongoing aspiration. 3. [id number] anemia, status post EGD that revealed esophagitis and gastritis. 4. End-stage renal disease, hemodialysis dependent. 5. Coronary artery disease, history of permanent pacemaker. 6. Failure to thrive and dysphagia, status post percutaneous endoscopic gastrostomy. 7. History of enterococcal bacteremia on previous admission. PLAN: Hemodynamically unstable, continue abx, Bipap, consider palliative care eval, prognosis poor DW staff Problems: JACK CHAN NP Jun 13, 2017 12:15
--- NOTE | 2017-06-13 12:55 | CONS ---
Date/Time of Note Date/Time of Note DATE: 06/13/17 TIME: 12:52 Assessment/Plan Assessment/Plan Chief Complaint/Hosp Course - ESRD ON HEMODIALYSIS - SEPTIC SHOCK - ANEMIA - PNEUMONIA - CAD / CHF - HYPOTENSION - DM - LOW ALBUMIN PLAN: On Bedside dialysis Aiming to UF ~ 2 liters as toleraes yesterday HD was isovolemic with no fluid off due to borderline BP At this point will continue with Hemodynamic support Broad spectrum antibiotics H/H stable Had HD today Will plan for HD next on sunday Will D/W son again regarding nursing home plan Problems: Consultation Date/Type/Reason Admit Date/Time Jun 05, 2017 at 16:11 Initial Consult Date 06/06/17 Type of Consultation: NEPHROLOGY Reason for Consultation ESRD ON HEMODIALYSIS 24 HR Interval Summary Subjective hx not possible: pt non-verbal, pt critical status Constitutional: disoriented Exam/Review of Systems Vital Signs Vitals Vital Signs Date Time Temp Pulse Resp B/P Pulse Ox O2 Delivery O2 Flow Rate FiO2 06/13/17 12:30 78 17 117/43 100 BIPAP 06/13/17 10:58 30 06/13/17 08:00 98.5 06/12/17 01:43 4.0 Intake and Output 06/12/17 06/12/17 06/13/17 14:59 22:59 06:59 Intake Total 2079.30 ml 445 ml Output Total 2000 ml Balance 79.30 ml 445 ml Exam Constitutional: non-verbal Psych: no complaints Head: normocephalic Neck: jvd Respiratory: crackles/rales Cardiovascular: diastolic murmur, edema, systolic murmur Gastrointestinal: soft Results Result Diagram: 06/13/17 0500 06/13/17 0500 Results 24 hrs Laboratory Tests Test 06/12/17 18:04 06/13/17 05:00 06/13/17 05:05 Stool Occult Blood POSITIVE White Blood Count 8.8 Red Blood Count 3.00 #L Hemoglobin 9.1 #L Hematocrit 27.6 L Mean Corpuscular Volume 92.0 Mean Corpuscular Hemoglobin 30.3 Mean Corpuscular Hemoglobin Concent 33.0 Red Cell Distribution Width 18.8 H Platelet Count 119 L Mean Platelet Volume 10.6 H Neutrophils % 74.7 Lymphocytes % 7.8 L Monocytes % 10.1 Eosinophils % 6.2 Basophils % 0.5 Nucleated Red Blood Cells % 0.0 Neutrophils # 6.6 Lymphocytes # 0.7 L Monocytes # 0.9 Eosinophils # 0.5 Basophils # 0.0 Nucleated Red Blood Cells # 0.0 Sodium Level 141 Potassium Level 3.7 Chloride Level 107 Carbon Dioxide Level 30 Anion Gap 8 Blood Urea Nitrogen 44 #H Creatinine 3.31 #H Glucose Level 109 Calcium Level 7.6 L Lab Scanned Report BLOOD TRANSFUSION Medications Medications Current Medications Ondansetron HCl (Zofran Inj) 4 mg Q6H PRN IV NAUSEA AND/OR VOMITING Last administered on 06/06/17 20:05; Admin Dose 4 MG; Start 06/05/17 at 14:00 Acetaminophen (Tylenol Tab) 650 mg Q6H PRN PO PAIN LEVEL 1-3 OR FEVER Last administered on 06/12/17 09:07; Admin Dose 650 MG; Start 06/05/17 at 14:00 Acetaminophen/ Hydrocodone Bitart ([place] (5/325)) 1 tab Q6H PRN PO MODERATE PAIN LEVEL 4-6; Start 06/05/17 at 14:00 Hydromorphone HCl (Dilaudid) 0.5 mg Q6H PRN IV SEVERE PAIN LEVEL 7-10 Last administered on 06/06/17 20:06; Admin Dose 0.5 MG; Start 06/05/17 at 15:00 Docusate Sodium (Colace) 100 mg Q12H PRN PO CONSTIPATION; Start 06/05/17 at 14: 00 Magnesium Hydroxide (Milk Of Mag) 30 ml DAILY PRN PO CONSTIPATION; Start at 14:00 Sodium Biphosphate/ Sodium Phosphate (Fleet Enema) 133 ml DAILY PRN [place] CONSTIPATION; Start 06/05/17 at 14:00 Lorazepam (Ativan) 0.5 mg Q6H PRN PO ANXIETY; Start 06/05/17 at 14:00 Vancomycin HCl (Vanco Iv Per Pharmacy) VANCOMYCIN PER PHARMACY NOTE XX ; Start 06/05/17 at 14:00 Hydralazine HCl (Apresoline) 10 mg Q6H PRN IV ELEVATED BLOOD PRESSURE; Start 06/05/17 at 14:00 Nitroglycerin (Nitroglycerin (Sl Tab) 0.4 Mg) 1 tab Q5M PRN SL ANGINA; Start 06/05/17 at 14:00 Folic Acid (Folic Acid) 1 mg DAILY PO Last administered on 06/13/17 08:39; Admin Dose 1 MG; Start 06/06/17 at 09:00 Miscellaneous Information (Pending Santyl Order For Wound Care) This patient badillo... PRN PRN XX WOUND CARE; Start 06/06/17 at 01:30 Collagenase (Santyl) 1 applic DAILY TOP Last administered on 06/13/17 08:40; Admin Dose 1 APPLIC; Start 06/06/17 at 15:30 Amiodarone HCl 200 mg 200 mg DAILY PO Last administered on 06/13/17 08:39; Admin Dose 200 MG; Start 06/07/17 at 09:00 Vancomycin HCl (Vancocin) 250 ml @ 125 mls/hr Q96H IVPB Last administered on 06/12/17 20:09; Admin Dose 125 MLS/HR; Start 06/08/17 at 20:00 Amikacin Sulfate (Amikacin Iv Per Pharmacy) AMIKACIN PER PHARMACY NOTE XX ; Start 06/09/17 at 17:00 Midodrine (Proamatine) 5 mg BID@09,17 NGT Last administered on 06/13/17 08:40 ; Admin Dose 5 MG; Start 06/10/17 at 17:00 Lansoprazole 30 mg 30 mg BID@06,18 GTB Last administered on 06/13/17 05:24; Admin Dose 30 MG; Start 06/11/17 at 06:00 Norepinephrine/ Dextrose (Levophed/D5W) 500 ml @ 0 mls/hr TITRATE IV Last administered on 06/13/17 09:50; Admin Dose 9.37 MLS/HR; Start 06/12/17 at 16: 30 DENVER ANTONY MD Jun 13, 2017 12:55
[2017-06-14] VITALS (49 sets, daily range): BP systolic 83–120; BP diastolic 28–72; PULSE 76–105; RESP 13–27
[2017-06-14 05:22] LABS: BASOPHIL # 0.1 10^3/ul (0.0-0.1); BASOPHILS % 0.7 % (0.0-2.0); EOSINOPHILS # 0.6 10^3/ul (0.0-0.5); EOSINOPHILS % 6.3 % (0.0-7.0); HEMATOCRIT 27.6 % (42.0-52.0); HEMOGLOBIN 9.1 g/dl (14.0-18.0); LYMPHOCYTES # 0.9 10^3/ul (0.8-2.9); LYMPHOCYTES % 10.5 % (15.0-51.0); MEAN CORPUSCULAR HEMOGLOBIN 30.4 pg (29.0-33.0); MEAN CORPUSCULAR VOLUME 92.3 fl (82.0-101.0); MEAN PLATELET VOLUME 10.5 fl (7.4-10.4); MONOCYTES % 11.3 % (0.0-11.0); NEUTROPHIL # 6.2 10^3/ul (1.6-7.5); NEUTROPHILS % 70.6 % (39.0-77.0); PLATELET COUNT 144 10^3/UL (140-415); RED BLOOD COUNT 2.99 10^6/ul (4.70-6.10); RED CELL DISTRIBUTION WIDTH 19.8 % (11.5-14.5); WHITE BLOOD COUNT 8.8 10^3/ul (4.8-10.8)
[2017-06-14 05:55] LABS: CALCIUM 7.5 mg/dl (8.4-10.2); CREATININE 2.95 mg/dl (0.61-1.24); POTASSIUM 3.4 mmol/L (3.5-5.1)
[2017-06-14] MEDS: LANSOPRAZOLE 30 MG CAP GTB SCH ×2 (06:29→17:38)
[2017-06-14] MEDS ORDERED: NA BICARBONATE 8.4% 50 ML SYG ONE (07:00)
[2017-06-14] MEDS ORDERED: CA CHLORIDE 10% 10 ML SYRINGE ONE (07:00)
[2017-06-14] MEDS ORDERED: EPINEPHrine 0.1 MG/ML SYG ONE (07:00)
[2017-06-14] MEDS: CALCIUM ACETATE 667 MG CAP PO SCH ×3 (07:52→17:37)
--- NOTE | 2017-06-14 07:53 | RADRPT ---
PROCEDURE: XR Chest. TECHNIQUE: Single frontal radiograph. CLINICAL INDICATION: Pneumonia. COMPARISON: CR CHEST 07/19/2016; CR CHEST 07/11/2016; CR CHEST 07/08/2016; CR CHEST 07/08/2016. FINDINGS: Moderate to large bilateral right greater left pleural effusions in the background of vascular conge stion/edema and cardiomegaly. There is a right internal jugular dialysis catheter and left chest wal l dual chamber pacemaker remain in place. The cardiac silhouette is enlarged. The thoracic aorta is diffusely calcified. IMPRESSION: Findings compatible with CHF and/or volume overload. RPTAT: EE .Taqueria Loco MD, MD Date Time Electronically viewed and signed by .Taqueria Loco MD, MD on 06/14/2017 07:58 .C/
[2017-06-14] MEDS: FOLIC ACID 1 MG TAB PO SCH (08:00)
[2017-06-14] MEDS: COLLAGENASE 30 GM TUBE TOP SCH (08:00)
[2017-06-14] MEDS: MIDODRINE 5 MG TAB NGT SCH ×2 (08:00→17:37)
[2017-06-14] MEDS: AMIODARONE 200 MG TAB PO SCH (08:00)
[2017-06-14 08:56] LABS: AADO2 Arterial 35.4 mmHg (7.0-24.0); Arterial Base Excess 4.1 mmol/L (-3.0-3); Arterial COHb 0.2 % (0.0-3.0); Arterial Fraction of Oxyhgb 94.3 % (93.0-99.0); Arterial HCO3 27.7 mmol/L (22.0-26.0); Arterial MetHb 0.2 % (0.0-1.5); Arterial Total Hemglobin 10.4 g/dl (12.0-18.0); MODE ROOM AIR
--- NOTE | 2017-06-14 09:14 | PN ---
Date/Time of Note Date/Time of Note DATE: 06/14/17 TIME: 09:12 Assessment/Plan VTE Prophylaxis VTE Prophylaxis Intervention: SCD's Lines/Catheters IV Catheter Type (from Nrs): PERMACATH Urinary Cath still in place: No Assessment/Plan Assessment/Plan 89 yo M with dementia, ESRD on HD admitted for septic shock, also found to have multiple wounds. Went into shock again 11. requiring transfer to the ICU for pressor support. #septic shock with negative cultures and no radiographic evidence of pna: abx as per ID. #troponinemia 2/2 demand from sepsis: cards on consult #ESRD: HD as per renal #anemia: EGD with gastritis, cscope declined by family #h/o SSS: PM in place #thryoid dysfunction: post discharge follow up Goals of care: spoke to son 11.14, he stated he wanted everything up to CPR for patient. He would want pt intubated if indicated. Bioethics evaluation pending. critical care time 30 minutes Subjective 24 Hr Interval Summary Free Text/Dictation required some pressor support overnight Exam/Review of Systems Vital Signs Vitals Vital Signs Date Time Temp Pulse Resp B/P Pulse Ox O2 Delivery O2 Flow Rate FiO2 06/14/17 09:00 100 24 102/40 99 Room Air 06/14/17 08:00 98.2 06/14/17 04:00 3.0 06/13/17 10:58 30 Intake and Output 06/13/17 06/13/17 06/14/17 15:00 23:00 07:00 Intake Total 730.7 ml 124.18 ml 183.72 ml Output Total 2500 ml Balance -1769.3 ml 124.18 ml 183.72 ml Exam Bipap off, +responds to painful stimuli no mrg lungs clear abd soft skin with multiple pressure ulcers Results Result Diagram: 06/14/17 0430 06/14/17 0430 Results 24 hrs Laboratory Tests Test 06/14/17 04:30 06/14/17 07:00 White Blood Count 8.8 Red Blood Count 2.99 L Hemoglobin 9.1 L Hematocrit 27.6 L Mean Corpuscular Volume 92.3 Mean Corpuscular Hemoglobin 30.4 Mean Corpuscular Hemoglobin Concent 33.0 Red Cell Distribution Width 19.8 H Platelet Count 144 # Mean Platelet Volume 10.5 H Neutrophils % 70.6 Lymphocytes % 10.5 L Monocytes % 11.3 H Eosinophils % 6.3 Basophils % 0.7 Nucleated Red Blood Cells % 0.0 Neutrophils # 6.2 Lymphocytes # 0.9 Monocytes # 1.0 H Eosinophils # 0.6 H Basophils # 0.1 Nucleated Red Blood Cells # 0.0 Sodium Level 144 Potassium Level 3.4 L Chloride Level 109 Carbon Dioxide Level 28 Anion Gap 10 Blood Urea Nitrogen 35 H Creatinine 2.95 H Glucose Level 129 Calcium Level 7.5 L Blood Gas Specimen Source Blood arterial Arterial Blood Date Drawn 06/14/2017 8:40:01 AM Arterial Blood pH (Temp corrected) 7.486 H Arterial Blood pCO2 (Temp correct) 37.5 Arterial Blood pO2 (Temp corrected) 69.4 L Arterial Blood HCO3 27.7 H Arterial Blood Base Excess 4.1 H Arterial Blood Oxygen Saturation 94.7 L Niall Test N/A Arterial Blood Gas Puncture Site Right Brachial Arterial Blood Carboxyhemoglobin 0.2 Arterial Blood Methemoglobin 0.2 Blood Gas A-a O2 Differential 35.4 H Oxyhemoglobin Percent 94.3 Total Hemoglobin 10.4 L Blood Gas Temperature 37.0 Blood Gas Modality ROOM AIR FiO2 21.0 Blood Gas Notified Whom JLD Blood Gas Notified Time 06/14/2017 8:56:36 AM Medications Medications Current Medications Ondansetron HCl (Zofran Inj) 4 mg Q6H PRN IV NAUSEA AND/OR VOMITING Last administered on 06/06/17 20:05; Admin Dose 4 MG; Start 06/05/17 at 14:00 Acetaminophen (Tylenol Tab) 650 mg Q6H PRN PO PAIN LEVEL 1-3 OR FEVER Last administered on 06/12/17 09:07; Admin Dose 650 MG; Start 06/05/17 at 14:00 Acetaminophen/ Hydrocodone Bitart ([place] (5/325)) 1 tab Q6H PRN PO MODERATE PAIN LEVEL 4-6; Start 06/05/17 at 14:00 Hydromorphone HCl (Dilaudid) 0.5 mg Q6H PRN IV SEVERE PAIN LEVEL 7-10 Last administered on 06/06/17 20:06; Admin Dose 0.5 MG; Start 06/05/17 at 15:00 Docusate Sodium (Colace) 100 mg Q12H PRN PO CONSTIPATION; Start 06/05/17 at 14: 00 Magnesium Hydroxide (Milk Of Mag) 30 ml DAILY PRN PO CONSTIPATION; Start at 14:00 Sodium Biphosphate/ Sodium Phosphate (Fleet Enema) 133 ml DAILY PRN [place] CONSTIPATION; Start 06/05/17 at 14:00 Lorazepam (Ativan) 0.5 mg Q6H PRN PO ANXIETY; Start 06/05/17 at 14:00 Vancomycin HCl (Vanco Iv Per Pharmacy) VANCOMYCIN PER PHARMACY NOTE XX ; Start 06/05/17 at 14:00 Hydralazine HCl (Apresoline) 10 mg Q6H PRN IV ELEVATED BLOOD PRESSURE; Start 06/05/17 at 14:00 Nitroglycerin (Nitroglycerin (Sl Tab) 0.4 Mg) 1 tab Q5M PRN SL ANGINA; Start 06/05/17 at 14:00 Folic Acid (Folic Acid) 1 mg DAILY PO Last administered on 06/14/17 08:00; Admin Dose 1 MG; Start 06/06/17 at 09:00 Miscellaneous Information (Pending Santyl Order For Wound Care) This patient badillo... PRN PRN XX WOUND CARE; Start 06/06/17 at 01:30 Collagenase (Santyl) 1 applic DAILY TOP Last administered on 06/14/17 08:00; Admin Dose 1 APPLIC; Start 06/06/17 at 15:30 Amiodarone HCl 200 mg 200 mg DAILY PO Last administered on 06/14/17 08:00; Admin Dose 200 MG; Start 06/07/17 at 09:00 Vancomycin HCl (Vancocin) 250 ml @ 125 mls/hr Q96H IVPB Last administered on 06/12/17 20:09; Admin Dose 125 MLS/HR; Start 06/08/17 at 20:00 Amikacin Sulfate (Amikacin Iv Per Pharmacy) AMIKACIN PER PHARMACY NOTE XX ; Start 06/09/17 at 17:00 Midodrine (Proamatine) 5 mg BID@ NGT Last administered on 06/14/17 08:00 ; Admin Dose 5 MG; Start 06/10/17 at 17:00 Lansoprazole 30 mg 30 mg BID@,18 GTB Last administered on 06/14/17 06:29; Admin Dose 30 MG; Start 06/11/17 at 06:00 Norepinephrine/ Dextrose (Levophed/D5W) 500 ml @ 0 mls/hr TITRATE IV Last administered on 06/13/17 09:50; Admin Dose 9.37 MLS/HR; Start 06/12/17 at 16: 30 MANUEL BUSTOS MD Jun 14, 2017 09:14
[2017-06-14] MEDS ORDERED: POTASSIUM CHLORIDE 20 MEQ POWDER FOR ORAL SOLN GTB ONE (09:30)
--- NOTE | 2017-06-14 11:20 | CONS ---
Date/Time of Note Date/Time of Note DATE: 06/14/17 TIME: 11:19 Consult Date/Type/Reason Admit Date/Time Jun 05, 2017 at 16:11 Initial Consult Date 06/06/17 Type of Consultation: Pulmonary Subjective Patient somnolent this morning. However off BiPAP and vasopressors. Objective Vital Signs Date Time Temp Pulse Resp B/P Pulse Ox O2 Delivery O2 Flow Rate FiO2 06/14/17 11:00 102 22 91/36 100 Room Air 06/14/17 08:00 98.2 06/14/17 04:00 3.0 06/13/17 10:58 30 Intake and Output 06/13/17 06/13/17 06/14/17 15:00 23:00 07:00 Intake Total 730.7 ml 124.18 ml 203.72 ml Output Total 2500 ml Balance -1769.3 ml 124.18 ml 203.72 ml Exam GENERAL: Elderly gentleman on room air. VITAL SIGNS: per chart NECK: Supple. No JVD or lymphadenopathy. CARDIAC EXAM: S1, S2. No added sounds or murmurs. CHEST: Diminished air entry both lung bases. Poor inspiratory effort. ABDOMEN: Soft, nontender. No guarding or rebound. EXTREMITIES: No cyanosis, clubbing or edema. NEUROLOGIC: Generalized weakness. No focal deficits. Results/Medications Result Diagram: 06/14/17 0430 06/14/17 0430 Results 24 hrs Laboratory Tests Test 06/14/17 04:30 06/14/17 07:00 White Blood Count 8.8 Red Blood Count 2.99 L Hemoglobin 9.1 L Hematocrit 27.6 L Mean Corpuscular Volume 92.3 Mean Corpuscular Hemoglobin 30.4 Mean Corpuscular Hemoglobin Concent 33.0 Red Cell Distribution Width 19.8 H Platelet Count 144 # Mean Platelet Volume 10.5 H Neutrophils % 70.6 Lymphocytes % 10.5 L Monocytes % 11.3 H Eosinophils % 6.3 Basophils % 0.7 Nucleated Red Blood Cells % 0.0 Neutrophils # 6.2 Lymphocytes # 0.9 Monocytes # 1.0 H Eosinophils # 0.6 H Basophils # 0.1 Nucleated Red Blood Cells # 0.0 Sodium Level 144 Potassium Level 3.4 L Chloride Level 109 Carbon Dioxide Level 28 Anion Gap 10 Blood Urea Nitrogen 35 H Creatinine 2.95 H Glucose Level 129 Calcium Level 7.5 L Blood Gas Specimen Source Blood arterial Arterial Blood Date Drawn 06/14/2017 8:40:01 AM Arterial Blood pH (Temp corrected) 7.486 H Arterial Blood pCO2 (Temp correct) 37.5 Arterial Blood pO2 (Temp corrected) 69.4 L Arterial Blood HCO3 27.7 H Arterial Blood Base Excess 4.1 H Arterial Blood Oxygen Saturation 94.7 L Niall Test N/A Arterial Blood Gas Puncture Site Right Brachial Arterial Blood Carboxyhemoglobin 0.2 Arterial Blood Methemoglobin 0.2 Blood Gas A-a O2 Differential 35.4 H Oxyhemoglobin Percent 94.3 Total Hemoglobin 10.4 L Blood Gas Temperature 37.0 Blood Gas Modality ROOM AIR FiO2 21.0 Blood Gas Notified Whom JLD Blood Gas Notified Time 06/14/2017 8:56:36 AM Medications Current Medications Ondansetron HCl (Zofran Inj) 4 mg Q6H PRN IV NAUSEA AND/OR VOMITING Last administered on 06/06/17 20:05; Admin Dose 4 MG; Start 06/05/17 at 14:00 Acetaminophen (Tylenol Tab) 650 mg Q6H PRN PO PAIN LEVEL 1-3 OR FEVER Last administered on 06/12/17 09:07; Admin Dose 650 MG; Start 06/05/17 at 14:00 Acetaminophen/ Hydrocodone Bitart ([place] (5/325)) 1 tab Q6H PRN PO MODERATE PAIN LEVEL 4-6; Start 06/05/17 at 14:00 Hydromorphone HCl (Dilaudid) 0.5 mg Q6H PRN IV SEVERE PAIN LEVEL 7-10 Last administered on 06/06/17 20:06; Admin Dose 0.5 MG; Start 06/05/17 at 15:00 Docusate Sodium (Colace) 100 mg Q12H PRN PO CONSTIPATION; Start 06/05/17 at 14: 00 Magnesium Hydroxide (Milk Of Mag) 30 ml DAILY PRN PO CONSTIPATION; Start at 14:00 Sodium Biphosphate/ Sodium Phosphate (Fleet Enema) 133 ml DAILY PRN [place] CONSTIPATION; Start 06/05/17 at 14:00 Lorazepam (Ativan) 0.5 mg Q6H PRN PO ANXIETY; Start 06/05/17 at 14:00 Vancomycin HCl (Vanco Iv Per Pharmacy) VANCOMYCIN PER PHARMACY NOTE XX ; Start 06/05/17 at 14:00 Hydralazine HCl (Apresoline) 10 mg Q6H PRN IV ELEVATED BLOOD PRESSURE; Start 06/05/17 at 14:00 Nitroglycerin (Nitroglycerin (Sl Tab) 0.4 Mg) 1 tab Q5M PRN SL ANGINA; Start 06/05/17 at 14:00 Folic Acid (Folic Acid) 1 mg DAILY PO Last administered on 06/14/17 08:00; Admin Dose 1 MG; Start 06/06/17 at 09:00 Miscellaneous Information (Pending Santyl Order For Wound Care) This patient badillo... PRN PRN XX WOUND CARE; Start 06/06/17 at 01:30 Collagenase (Santyl) 1 applic DAILY TOP Last administered on 06/14/17 08:00; Admin Dose 1 APPLIC; Start 06/06/17 at 15:30 Amiodarone HCl 200 mg 200 mg DAILY PO Last administered on 06/14/17 08:00; Admin Dose 200 MG; Start 06/07/17 at 09:00 Vancomycin HCl (Vancocin) 250 ml @ 125 mls/hr Q96H IVPB Last administered on 06/12/17 20:09; Admin Dose 125 MLS/HR; Start 06/08/17 at 20:00 Amikacin Sulfate (Amikacin Iv Per Pharmacy) AMIKACIN PER PHARMACY NOTE XX ; Start 06/09/17 at 17:00 Midodrine (Proamatine) 5 mg BID@,17 NGT Last administered on 06/14/17 08:00 ; Admin Dose 5 MG; Start 06/10/17 at 17:00 Lansoprazole 30 mg 30 mg BID@06,18 GTB Last administered on 06/14/17 06:29; Admin Dose 30 MG; Start 06/11/17 at 06:00 Norepinephrine/ Dextrose (Levophed/D5W) 500 ml @ 0 mls/hr TITRATE IV Last administered on 06/13/17 09:50; Admin Dose 9.37 MLS/HR; Start 06/12/17 at 16: 30 Assessment/Plan Chief Complaint/Hosp Course IMPRESSION 1. Hypoxemic respiratory failure, likely secondary to volume overload possible component of aspiration pneumonia also. 2. Likely underlying pneumonia, possibly health-care associated. 3. Dysphagia. 4. Dementia. 5. End-stage renal failure. Hemodialysis dependent. 6. Anemia likely secondary to chronic renal disease. 7. Status post Septic shock. RECOMMENDATIONS 1. Continue broad-spectrum antibiotics. 2. Hemodialysis as tolerated. 3. Palliative care input 4. Aspiration precautions. 5. Supplemental O2 or BiPAP as needed. Overall prognosis very poor. Problems: TIMBO RAMEY MD, [facility] Jun 14, 2017 11:20
--- NOTE | 2017-06-14 11:47 | PN ---
Date/Time of Note Date/Time of Note DATE: 06/14/17 TIME: 11:45 Assessment/Plan VTE Prophylaxis VTE Prophylaxis Intervention: SCD's Lines/Catheters IV C[facility] Type (from [facility] Perma Cath Urinary Cath still in place: No Assessment/Plan Chief Complaint/Hosp Course Summary Assessment and Plan: Assessment: Positive FOBT Anemia EGD 06/06/17 Impression: Esophagitis Gastritis. Rule out H pylori. Biopsied (likely cause of bleeding) GT in place Plan: Continue PPI bid Continue to monitor H/H- transfuse as needed Stool for OB- positive- however family declines colonoscopy Patient remains in ICU- with very poor prognosis Patient now off bipap- on room air Recommend palliative therapy- although family does not consent to palliative care at this time Patient seen in collaboration with Subjective: Course reviewed with nursing staff Patient interviewed and examined All labs, imaging and other results reviewed Patient with very poor prognosis, considered high risk for colonoscopy- family agrees and does not want colonoscopy at this time recommend palliative therapy, although family currently does not consent to palliative care Currently Hgb stable, will plan to continue to monitor and transfuse as needed Code status DNR. PHYSICAL EXAMINATION: GENERAL: Non-verbal, chronically ill appearing SKIN: No lesions, no stigmata chronic liver disease, g-tube in place. LYMPHATIC: No palpable lymphadenopathy. HEAD: Normocephalic, atraumatic, no tenderness. EYES: Pupils equal reactive to light and accommodation, full extraocular movements, sclera clear, non-icteric, no discharge. EARS/NOSE AND THROAT: Ears normal, nose normal, oropharynx normal, oral membranes well hydrated without lesions. NECK: Supple, no masses, thyroid normal, CHEST: Inspection within normal limits. CARDIOVASCULAR: Heart: irregular RESPIRATORY: Lungs diminished GASTROINTESTINAL AND LIVER: Abdomen: Soft, non tenderness, non-distended, no hernias, no masses, no organomegaly, no ascites, no guarding, no rebound tenderness, normoactive bowel sounds. Rectal: OB positive Problems: Exam/Review of Systems Vital Signs Vitals Vital Signs Date Time Temp Pulse Resp B/P Pulse Ox O2 Delivery O2 Flow Rate FiO2 06/14/17 11:30 105 25 101/33 100 Room Air 06/14/17 08:00 98.2 06/14/17 04:00 3.0 06/13/17 10:58 30 Intake and Output 06/13/17 06/13/17 06/14/17 15:00 23:00 07:00 Intake Total 730.7 ml 124.18 ml 203.72 ml Output Total 2500 ml Balance -1769.3 ml 124.18 ml 203.72 ml Results Result Diagram: 06/14/17 0430 06/14/17 0430 Results 24 hrs Laboratory Tests Test 06/14/17 04:30 06/14/17 07:00 White Blood Count 8.8 Red Blood Count 2.99 L Hemoglobin 9.1 L Hematocrit 27.6 L Mean Corpuscular Volume 92.3 Mean Corpuscular Hemoglobin 30.4 Mean Corpuscular Hemoglobin Concent 33.0 Red Cell Distribution Width 19.8 H Platelet Count 144 # Mean Platelet Volume 10.5 H Neutrophils % 70.6 Lymphocytes % 10.5 L Monocytes % 11.3 H Eosinophils % 6.3 Basophils % 0.7 Nucleated Red Blood Cells % 0.0 Neutrophils # 6.2 Lymphocytes # 0.9 Monocytes # 1.0 H Eosinophils # 0.6 H Basophils # 0.1 Nucleated Red Blood Cells # 0.0 Sodium Level 144 Potassium Level 3.4 L Chloride Level 109 Carbon Dioxide Level 28 Anion Gap 10 Blood Urea Nitrogen 35 H Creatinine 2.95 H Glucose Level 129 Calcium Level 7.5 L Blood Gas Specimen Source Blood arterial Arterial Blood Date Drawn 06/14/2017 8:40:01 AM Arterial Blood pH (Temp corrected) 7.486 H Arterial Blood pCO2 (Temp correct) 37.5 Arterial Blood pO2 (Temp corrected) 69.4 L Arterial Blood HCO3 27.7 H Arterial Blood Base Excess 4.1 H Arterial Blood Oxygen Saturation 94.7 L Niall Test N/A Arterial Blood Gas Puncture Site Right Brachial Arterial Blood Carboxyhemoglobin 0.2 Arterial Blood Methemoglobin 0.2 Blood Gas A-a O2 Differential 35.4 H Oxyhemoglobin Percent 94.3 Total Hemoglobin 10.4 L Blood Gas Temperature 37.0 Blood Gas Modality ROOM AIR FiO2 21.0 Blood Gas Notified Whom JLD Blood Gas Notified Time 06/14/2017 8:56:36 AM Medications Medications Current Medications Ondansetron HCl (Zofran Inj) 4 mg Q6H PRN IV NAUSEA AND/OR VOMITING Last administered on 06/06/17t 20:05; Admin Dose 4 MG; Start 06/05/17 at 14:00 Acetaminophen (Tylenol Tab) 650 mg Q6H PRN PO PAIN LEVEL 1-3 OR FEVER Last administered on 06/12/17 09:07; Admin Dose 650 MG; Start 06/05/17 at 14:00 Acetaminophen/ Hydrocodone Bitart ([place] (5/325)) 1 tab Q6H PRN PO MODERATE PAIN LEVEL 4-6; Start 06/05/17 at 14:00 Hydromorphone HCl (Dilaudid) 0.5 mg Q6H PRN IV SEVERE PAIN LEVEL 7-10 Last administered on 06/06/17 20:06; Admin Dose 0.5 MG; Start 06/05/17 at 15:00 Docusate Sodium (Colace) 100 mg Q12H PRN PO CONSTIPATION; Start 06/05/17 at 14: 00 Magnesium Hydroxide (Milk Of Mag) 30 ml DAILY PRN PO CONSTIPATION; Start at 14:00 Sodium Biphosphate/ Sodium Phosphate (Fleet Enema) 133 ml DAILY PRN [place] CONSTIPATION; Start 06/05/17 at 14:00 Lorazepam (Ativan) 0.5 mg Q6H PRN PO ANXIETY; Start 06/05/17 at 14:00 Vancomycin HCl (Vanco Iv Per Pharmacy) VANCOMYCIN PER PHARMACY NOTE XX ; Start 06/05/17 at 14:00 Hydralazine HCl (Apresoline) 10 mg Q6H PRN IV ELEVATED BLOOD PRESSURE; Start 06/05/17 at 14:00 Nitroglycerin (Nitroglycerin (Sl Tab) 0.4 Mg) 1 tab Q5M PRN SL ANGINA; Start 06/05/17 at 14:00 Folic Acid (Folic Acid) 1 mg DAILY PO Last administered on 06/14/17 08:00; Admin Dose 1 MG; Start 06/06/17 at 09:00 Miscellaneous Information (Pending Santyl Order For Wound Care) This patient badillo... PRN PRN XX WOUND CARE; Start 06/06/17 at 01:30 Collagenase (Santyl) 1 applic DAILY TOP Last administered on 06/14/17 08:00; Admin Dose 1 APPLIC; Start 06/06/17 at 15:30 Amiodarone HCl 200 mg 200 mg DAILY PO Last administered on 06/14/17 08:00; Admin Dose 200 MG; Start 06/07/17 at 09:00 Vancomycin HCl (Vancocin) 250 ml @ 125 mls/hr Q96H IVPB Last administered on 06/12/17 20:09; Admin Dose 125 MLS/HR; Start 06/08/17 at 20:00 Amikacin Sulfate (Amikacin Iv Per Pharmacy) AMIKACIN PER PHARMACY NOTE XX ; Start 06/09/17 at 17:00 Midodrine (Proamatine) 5 mg BID@ NGT Last administered on 06/14/17 08:00 ; Admin Dose 5 MG; Start 06/10/17 at 17:00 Lansoprazole 30 mg 30 mg BID@,18 GTB Last administered on 06/14/17 06:29; Admin Dose 30 MG; Start 06/11/17 at 06:00 Norepinephrine/ Dextrose (Levophed/D5W) 500 ml @ 0 mls/hr TITRATE IV Last administered on 06/13/17 09:50; Admin Dose 9.37 MLS/HR; Start 06/12/17 at 16: 30 DAISY ANTONIO Jun 14, 2017 11:47
--- NOTE | 2017-06-14 14:13 | PN ---
DATE: 06/14/2017 SUBJECTIVE: Patient is more awake today, off pressors, still BiPAP, looks comfortable. WBC today 8 .8 with platelets 144. VITAL SIGNS: Temperature 98.2, pulse 105, respirations 22, blood pressure 91/36, saturation 100%. INDWELLINGS: Right upper extremity PICC line, right chest Perma-Cath, PEG. DIAGNOSTICS: Chest x-ray this morning revealed CHF. ANTIMICROBIALS: The patient is on: 1. Vancomycin. 2. Amikacin. PHYSICAL EXAMINATION: GENERAL: This is a chronically ill-appearing, elderly man who is in no distress. HEENT: Head atraumatic, normocephalic. Sclerae anicteric. Buccal mucosa dry. NECK: Supple. CHEST: Rise symmetrical. Breath sounds diminished to bases. HEART: S1, S2. ABDOMEN: Soft. Bowel tones hypoactive. EXTREMITIES: Without cyanosis. Bilateral trace edema. SKIN: Positive for anasarca. ASSESSMENT: 1. Sepsis, status post shock. 2. Acute respiratory failure secondary to pneumonia and fluid overload. 3. End-stage renal disease, hemodialysis dependent. 4. Dysphagia. 5. Anemia. 6. History of permanent pacemaker. PLAN: The patient remains clinically and hemodynamically stable. Continue present care, antibiotic s. Follow recommendations of consultants. Overall, prognosis poor. The patient is DNR status. Dictated By: JACK CHAN [employer] for [employer]UHAIR CLINE/NTS Conf#: [id number] DID#: [id number] CC: CARINA LINCOLN;*EndCC*
--- NOTE | 2017-06-14 14:57 | CONS ---
Date/Time of Note Date/Time of Note DATE: 06/14/17 TIME: 14:54 Assessment/Plan Assessment/Plan Chief Complaint/Hosp Course - ESRD ON HEMODIALYSIS - SEPTIC SHOCK - ANEMIA - PNEUMONIA - CAD / CHF - HYPOTENSION - DM - LOW ALBUMIN PLAN: Has Bedside dialysis yesterday Son at bedside Plan for dialysis in AM At this point will continue with Hemodynamic support Broad spectrum antibiotics H/H stable Discussed with the son again regarding buttermaker helper plan Problems: Consultation Date/Type/Reason Admit Date/Time Jun 05, 2017 at 16:11 Initial Consult Date 06/06/17 Type of Consultation: NEPHROLOGY Reason for Consultation ESRD ON HEMODIALYSIS 24 HR Interval Summary Subjective hx not possible: pt non-verbal, pt critical status Constitutional: no complaints Exam/Review of Systems Vital Signs Vitals Vital Signs Date Time Temp Pulse Resp B/P Pulse Ox O2 Delivery O2 Flow Rate FiO2 06/14/17 14:30 102 120/31 100 Room Air 06/14/17 14:00 23 06/14/17 12:00 98.4 06/14/17 04:00 3.0 06/13/17 10:58 30 Intake and Output 06/13/17 06/13/17 06/14/17 15:00 23:00 07:00 Intake Total 730.7 ml 124.18 ml 203.72 ml Output Total 2500 ml Balance -1769.3 ml 124.18 ml 203.72 ml Exam Constitutional: non-verbal Psych: no complaints Head: normocephalic Neck: supple Respiratory: crackles/rales Cardiovascular: edema, systolic murmur Gastrointestinal: soft Results Result Diagram: 06/14/17 0430 06/14/17 0430 Results 24 hrs Laboratory Tests Test 06/14/17 04:30 06/14/17 07:00 White Blood Count 8.8 Red Blood Count 2.99 L Hemoglobin 9.1 L Hematocrit 27.6 L Mean Corpuscular Volume 92.3 Mean Corpuscular Hemoglobin 30.4 Mean Corpuscular Hemoglobin Concent 33.0 Red Cell Distribution Width 19.8 H Platelet Count 144 # Mean Platelet Volume 10.5 H Neutrophils % 70.6 Lymphocytes % 10.5 L Monocytes % 11.3 H Eosinophils % 6.3 Basophils % 0.7 Nucleated Red Blood Cells % 0.0 Neutrophils # 6.2 Lymphocytes # 0.9 Monocytes # 1.0 H Eosinophils # 0.6 H Basophils # 0.1 Nucleated Red Blood Cells # 0.0 Sodium Level 144 Potassium Level 3.4 L Chloride Level 109 Carbon Dioxide Level 28 Anion Gap 10 Blood Urea Nitrogen 35 H Creatinine 2.95 H Glucose Level 129 Calcium Level 7.5 L Blood Gas Specimen Source Blood arterial Arterial Blood Date Drawn 06/14/2017 8:40:01 AM Arterial Blood pH (Temp corrected) 7.486 H Arterial Blood pCO2 (Temp correct) 37.5 Arterial Blood pO2 (Temp corrected) 69.4 L Arterial Blood HCO3 27.7 H Arterial Blood Base Excess 4.1 H Arterial Blood Oxygen Saturation 94.7 L Niall Test N/A Arterial Blood Gas Puncture Site Right Brachial Arterial Blood Carboxyhemoglobin 0.2 Arterial Blood Methemoglobin 0.2 Blood Gas A-a O2 Differential 35.4 H Oxyhemoglobin Percent 94.3 Total Hemoglobin 10.4 L Blood Gas Temperature 37.0 Blood Gas Modality ROOM AIR FiO2 21.0 Blood Gas Notified Whom JLD Blood Gas Notified Time 06/14/2017 8:56:36 AM Medications Medications Current Medications Ondansetron HCl (Zofran Inj) 4 mg Q6H PRN IV NAUSEA AND/OR VOMITING Last administered on 06/06/17 20:05; Admin Dose 4 MG; Start 06/05/17 at 14:00 Acetaminophen (Tylenol Tab) 650 mg Q6H PRN PO PAIN LEVEL 1-3 OR FEVER Last administered on 06/12/17 09:07; Admin Dose 650 MG; Start 06/05/17 at 14:00 Acetaminophen/ Hydrocodone Bitart ([place] (5/325)) 1 tab Q6H PRN PO MODERATE PAIN LEVEL 4-6; Start 06/05/17 at 14:00 Hydromorphone HCl (Dilaudid) 0.5 mg Q6H PRN IV SEVERE PAIN LEVEL 7-10 Last administered on 06/06/17 20:06; Admin Dose 0.5 MG; Start 06/05/17 at 15:00 Docusate Sodium (Colace) 100 mg Q12H PRN PO CONSTIPATION; Start 06/05/17 at 14: 00 Magnesium Hydroxide (Milk Of Mag) 30 ml DAILY PRN PO CONSTIPATION; Start at 14:00 Sodium Biphosphate/ Sodium Phosphate (Fleet Enema) 133 ml DAILY PRN [place] CONSTIPATION; Start 06/05/17 at 14:00 Lorazepam (Ativan) 0.5 mg Q6H PRN PO ANXIETY; Start 06/05/17 at 14:00 Vancomycin HCl (Vanco Iv Per Pharmacy) VANCOMYCIN PER PHARMACY NOTE XX ; Start 06/05/17 at 14:00 Hydralazine HCl (Apresoline) 10 mg Q6H PRN IV ELEVATED BLOOD PRESSURE; Start 06/05/17 at 14:00 Nitroglycerin (Nitroglycerin (Sl Tab) 0.4 Mg) 1 tab Q5M PRN SL ANGINA; Start 06/05/17 at 14:00 Folic Acid (Folic Acid) 1 mg DAILY PO Last administered on 06/14/17 08:00; Admin Dose 1 MG; Start 06/06/17 at 09:00 Miscellaneous Information (Pending Santyl Order For Wound Care) This patient badillo... PRN PRN XX WOUND CARE; Start 06/06/17 at 01:30 Collagenase (Santyl) 1 applic DAILY TOP Last administered on 06/14/17 08:00; Admin Dose 1 APPLIC; Start 06/06/17 at 15:30 Amiodarone HCl 200 mg 200 mg DAILY PO Last administered on 06/14/17 08:00; Admin Dose 200 MG; Start 06/07/17 at 09:00 Vancomycin HCl (Vancocin) 250 ml @ 125 mls/hr Q96H IVPB Last administered on 06/12/17 20:09; Admin Dose 125 MLS/HR; Start 06/08/17 at 20:00 Amikacin Sulfate (Amikacin Iv Per Pharmacy) AMIKACIN PER PHARMACY NOTE XX ; Start 06/09/17 at 17:00 Midodrine (Proamatine) 5 mg BID@17 NGT Last administered on 06/14/17 08:00 ; Admin Dose 5 MG; Start 06/10/17 at 17:00 Lansoprazole 30 mg 30 mg BID@0618 GTB Last administered on 06/14/17 06:29; Admin Dose 30 MG; Start 06/11/17 at 06:00 Norepinephrine/ Dextrose (Levophed/D5W) 500 ml @ 0 mls/hr TITRATE IV Last administered on 06/13/17 09:50; Admin Dose 9.37 MLS/HR; Start 06/12/17 at 16: 30 DENVER ANTONY MD Jun 14, 2017 14:57
--- NOTE | 2017-06-14 18:41 | PN ---
Date/Time of Note Date/Time of Note DATE: 06/14/17 TIME: 18:39 Assessment/Plan VTE Prophylaxis VTE Prophylaxis Intervention: SCD's Lines/Catheters IV C[facility]ter Type (from [facility] Perma Cath Urinary Cath still in place: No Assessment/Plan Assessment/Plan Septic shock, currently on IV pressor Labile blood pressure with hypertension Preserved ejection fraction End-stage renal disease on hemodialysis Mild to moderate aortic stenosis Respiratory failure on BiPAP off pressors fluid management via hemodialysis as per nephrology colleagues, currently on BiPAP. Antibiotics as per infectious disease. No antihypertensives at the current time given hypotension. Subjective 24 Hr Interval Summary Free Text/Dictation The patient stable overnight and off pressors Exam/Review of Systems Vital Signs Vitals Vital Signs Date Time Temp Pulse Resp B/P Pulse Ox O2 Delivery O2 Flow Rate FiO2 06/14/17 17:30 101 16 111/32 100 Room Air 06/14/17 16:00 98.2 06/14/17 04:00 3.0 06/13/17 10:58 30 Intake and Output 06/13/17 06/13/17 06/14/17 15:00 23:00 07:00 Intake Total 730.7 ml 124.18 ml 203.72 ml Output Total 2500 ml Balance -1769.3 ml 124.18 ml 203.72 ml Results Result Diagram: 06/14/17 0430 06/14/17 0430 Results 24 hrs Laboratory Tests Test 06/14/17 04:30 06/14/17 07:00 White Blood Count 8.8 Red Blood Count 2.99 L Hemoglobin 9.1 L Hematocrit 27.6 L Mean Corpuscular Volume 92.3 Mean Corpuscular Hemoglobin 30.4 Mean Corpuscular Hemoglobin Concent 33.0 Red Cell Distribution Width 19.8 H Platelet Count 144 # Mean Platelet Volume 10.5 H Neutrophils % 70.6 Lymphocytes % 10.5 L Monocytes % 11.3 H Eosinophils % 6.3 Basophils % 0.7 Nucleated Red Blood Cells % 0.0 Neutrophils # 6.2 Lymphocytes # 0.9 Monocytes # 1.0 H Eosinophils # 0.6 H Basophils # 0.1 Nucleated Red Blood Cells # 0.0 Sodium Level 144 Potassium Level 3.4 L Chloride Level 109 Carbon Dioxide Level 28 Anion Gap 10 Blood Urea Nitrogen 35 H Creatinine 2.95 H Glucose Level 129 Calcium Level 7.5 L Blood Gas Specimen Source Blood arterial Arterial Blood Date Drawn 06/14/2017 8:40:01 AM Arterial Blood pH (Temp corrected) 7.486 H Arterial Blood pCO2 (Temp correct) 37.5 Arterial Blood pO2 (Temp corrected) 69.4 L Arterial Blood HCO3 27.7 H Arterial Blood Base Excess 4.1 H Arterial Blood Oxygen Saturation 94.7 L Niall Test N/A Arterial Blood Gas Puncture Site Right Brachial Arterial Blood Carboxyhemoglobin 0.2 Arterial Blood Methemoglobin 0.2 Blood Gas A-a O2 Differential 35.4 H Oxyhemoglobin Percent 94.3 Total Hemoglobin 10.4 L Blood Gas Temperature 37.0 Blood Gas Modality ROOM AIR FiO2 21.0 Blood Gas Notified Whom JLD Blood Gas Notified Time 06/14/2017 8:56:36 AM Medications Medications Current Medications Ondansetron HCl (Zofran Inj) 4 mg Q6H PRN IV NAUSEA AND/OR VOMITING Last administered on 06/06/17 20:05; Admin Dose 4 MG; Start 06/05/17 at 14:00 Acetaminophen (Tylenol Tab) 650 mg Q6H PRN PO PAIN LEVEL 1-3 OR FEVER Last administered on 06/12/17 09:07; Admin Dose 650 MG; Start 06/05/17 at 14:00 Acetaminophen/ Hydrocodone Bitart ([place] (5/325)) 1 tab Q6H PRN PO MODERATE PAIN LEVEL 4-6; Start 06/05/17 at 14:00 Hydromorphone HCl (Dilaudid) 0.5 mg Q6H PRN IV SEVERE PAIN LEVEL 7-10 Last administered on 06/06/17 20:06; Admin Dose 0.5 MG; Start 06/05/17 at 15:00 Docusate Sodium (Colace) 100 mg Q12H PRN PO CONSTIPATION; Start 06/05/17 at 14: 00 Magnesium Hydroxide (Milk Of Mag) 30 ml DAILY PRN PO CONSTIPATION; Start at 14:00 Sodium Biphosphate/ Sodium Phosphate (Fleet Enema) 133 ml DAILY PRN [place] CONSTIPATION; Start 06/05/17 at 14:00 Lorazepam (Ativan) 0.5 mg Q6H PRN PO ANXIETY; Start 06/05/17 at 14:00 Vancomycin HCl (Vanco Iv Per Pharmacy) VANCOMYCIN PER PHARMACY NOTE XX ; Start 06/05/17 at 14:00 Hydralazine HCl (Apresoline) 10 mg Q6H PRN IV ELEVATED BLOOD PRESSURE; Start 06/05/17 at 14:00 Nitroglycerin (Nitroglycerin (Sl Tab) 0.4 Mg) 1 tab Q5M PRN SL ANGINA; Start 06/05/17 at 14:00 Folic Acid (Folic Acid) 1 mg DAILY PO Last administered on 06/14/17 08:00; Admin Dose 1 MG; Start 06/06/17 at 09:00 Miscellaneous Information (Pending Santyl Order For Wound Care) This patient badillo... PRN PRN XX WOUND CARE; Start 06/06/17 at 01:30 Collagenase (Santyl) 1 applic DAILY TOP Last administered on 06/14/17 08:00; Admin Dose 1 APPLIC; Start 06/06/17 at 15:30 Amiodarone HCl 200 mg 200 mg DAILY PO Last administered on 06/14/17 08:00; Admin Dose 200 MG; Start 06/07/17 at 09:00 Vancomycin HCl (Vancocin) 250 ml @ 125 mls/hr Q96H IVPB Last administered on 06/12/17 20:09; Admin Dose 125 MLS/HR; Start 06/08/17 at 20:00 Amikacin Sulfate (Amikacin Iv Per Pharmacy) AMIKACIN PER PHARMACY NOTE XX ; Start 06/09/17 at 17:00 Midodrine (Proamatine) 5 mg BID@17 NGT Last administered on 06/14/17 17:37 ; Admin Dose 5 MG; Start 06/10/17 at 17:00 Lansoprazole 30 mg 30 mg BID@06,18 GTB Last administered on 06/14/17 17:38; Admin Dose 30 MG; Start 06/11/17 at 06:00 Norepinephrine/ Dextrose (Levophed/D5W) 500 ml @ 0 mls/hr TITRATE IV Last administered on 06/13/17 09:50; Admin Dose 9.37 MLS/HR; Start 06/12/17 at 16: 30 COLEMAN VICK MD Jun 14, 2017 18:41
--- NOTE | 2017-06-14 19:21 | RADRPT ---
PROCEDURE: XR Chest. CLINICAL INDICATION: Endotracheal tube placement TECHNIQUE: Single frontal chest x-ray. COMPARISON: CHEST 06/14/2017 FINDINGS: Endotracheal tube tip is in the trachea 2 cm above the abran. Right-sided Perma-Cath remains in jesse ce. Hazy bibasilar pulmonary opacities are again seen, grossly stable. No pneumothorax identified. Cardiomediastinal silhouette is stable in appearance. Aortic atherosclerotic calcification is noted. Left-sided dual lead pacemaker remains in place. The osseous structures are unremarkable. IMPRESSION: 1. Endotracheal tube tip in good position. 2. Grossly stable hazy bibasilar pulmonary opacities, greater on the right, likely atelectasis and/ or mild to moderate pleural effusions. 3. Aortic atherosclerosis. 4. Right-sided Perma-Cath remains in place. RPTAT: HDWR .Spike Paniagua MD, Date Time Electronically viewed and signed by .Spike Paniagua MD, on 06/14/2017 19:20 .R/
--- NOTE | 2017-06-15 08:30 | DES ---
Date/Time of Note Date/Time of Note DATE: 06/15/17 TIME: 08:30 Discharge/ Summary Admission/Discharge Info Admit Date/Time Jun 05, 2017 at 16:11 Discharge Date/Time Jun 14, 2017 at 18:31 Final Diagnosis septic shock Preliminary Cause of ventricular fibrillation causing cardiac arrest in the setting of septic shock Hx of Present Illness An 89-year-old male, past medical history of recent septic shock and hypotension, prior pneumonia, end-stage renal disease on dialysis, paroxysmal atrial fibrillation, prior CVA, aortic stenosis, sick sinus syndrome status post pacemaker, high cholesterol and chronic dementia who was brought in from dialysis center today because of hypoxia, tachypnea and shortness of breath. Most information is obtained from the ER documentation as the patient is presently on BiPAP and unable to provide full HPI. So, no review of systems could be obtained at this time. The story is that the patient apparently received about 2 1/2 hours of dialysis before he started to desaturate, became tachycardiac and tachypneic and also short of breath, and he was sent over here to the emergency room. When he came in today, he was found with some low blood pressure, systolic blood pressure was in the 78 range. He was also found with elevated lactic acid today of 5.8, also his troponin was elevated 0.226, and his BNP was high at 51,000, and his white blood cell count was elevated at 16.7 and he received BiPAP in the ER today which he is presently still on. The patient was last here at our hospital from May 15 to May 31, 2017, for septic shock secondary to bacteremia at that time. The patient was started on Levophed in the ER. Hospital Course 89 yo M with dementia, ESRD on HD admitted for septic shock ?from pneumonia?, also found to have multiple wounds. Was initially in the unit, transferred to the floor, went into shock again 11.14 requiring transfer to the ICU for pressor support. Septic shock cb NSTEMI from demand. Hospital course notable for anemia, EGD with gastritis, family declined CScope Despite broad spectrum antimicrobials and agressive medical interventions, pt's clinical status continued to deteriorate. During multiple conversations with pt' s son Art about pt's tenuous clinical status and poor prognosis, son continued to demand aggressive care. 11.14 son stated he wanted all interventions except chest compressions. 11.16 pt with worsening respiratory distress on BiPap. ER was called for intubation. Just after intubation occurred, pt went into VF arrest. Pt given bicarb, vasoactive medication, but ROSC was not achieved. Pt pronounced by intubating physician at 1831. MANUEL BUSTOS MD Jun 15, 2017 08:30
--- NOTE | 2017-06-15 13:07 | EN ---
Date/Time of Note Date/Time of Note DATE: 06/15/17 TIME: 12:53 ER Progress Note S: A CLAUDIA LUNA was called, and I was called to the bedside in the ICU. Briefly , this is an 89-year-old male with a history of end-stage renal disease on dialysis who initially presented with shortness of breath after dialysis. The patient was reportedly initially admitted to the floor, but his presentation warrants worsened and he was ultimately transferred to the ICU. There is reportedly concerns of possible pneumonia versus septic shock. The patient was hypotensive and started on levo fed while in the ICU. I was called to the bedside because of acute hypoxic respiratory failure. The patient was reportedly DNR, but he did reportedly consented to intubation. EMR: Reviewed O: Vital signs reviewed Const: Severe respiratory distress, well-developed Head: Normocephalic, Atraumatic Eyes: Normal Conjunctiva. Pupils sluggishly reactive. ENT: Normal External Ears, Nose. Dry mucous membranes. Resp: Diffuse coarse congested breath sounds Cardio: Tachycardia Abd: Non distended Skin: Multiple skin wounds Neur: Unresponsive, GCS 3 A: AHRF, VF Cardiac Arrest MDM The patient's presentation warrants further investigation. Upon my arrival, I assumed care of the patient. The patient was in acute hypoxic respiratory failure requiring intubation. I did quickly speak to the patient's son who is at the bedside who stated that he did consent to intubation but that he did not want compressions or cardioversion. Because of the patient's hemodynamic instability and unresponsiveness, the decision was made to intubate without RSI medications. Endotracheal Intubation by me: Pre assessment performed. Pre-oxygenation performed with 100% oxygen RSI: None Blade: Mac 4 ET Tube: 7.5 Depth: 23 cm at the lip Intubation confirmed by direct visualization of the endotracheal tube passing through the vocal cords, equal breath sounds, quiet over the stomach. Chest X-ray 1V Interpreted by me: 2 cm above the abran ET tube. Normal soft tissue, No pneumothorax. TREATMENT/DISPOSITION Despite successful intubation, the patient's hemodynamics continued to worsen. The patient was initially paced on the monitor, but this unfortunately devolved into V. fib. In speaking with the patient's son, it was clear that chest compressions and cardioversion were not desired by the patient. The son requested that medications be attempted. The patient was given 2 doses of epinephrine, bicarbonate and calcium. Please see the code sheet for further details. I explained to the patient's son that without chest compressions, these medications are unlikely to become systemic and are unlikely to work. The patient did transiently reconvert to a paced rhythm, but this quickly devolved back into V. fib. After approximately 15 min, we are not able to achieve a sustaining rhythm. A cardiac ultrasound was performed at this time by me at the bedside. BEDSIDE CARDIAC US Performed by me. Subxiphoid view. Cardiac standstill The patient was pulseless with V. fib on the monitor. He is in cardiac standstill. There is no heartbeat or breath sounds on auscultation. The patient's pupils were dilated. The patient had no gag reflex. After discussing with the healthcare staff, nobody felt that further intervention was warranted. I discussed with the patient's son that it was time to cease resuscitative efforts. The patient's son expressed understanding and gratitude for our attempt to save his father's life. The patient's time of was called at 1531. CRITICAL CARE NOTE Time: 30 minutes excluding all billable procedures. Treatments/Evaluations: Evaluation of the patient's medical record including previous records & current laboratory/imaging studies, close monitoring, potential interventions if hemodynamically unstable or cardiopulmonary decline or neurologic decline, maintaining tight fluid balance, any discussions with the family regarding the patient's status and prognosis. Disclaimer: Inadvertent spelling and grammatical errors are likely due to EHR/ dictation software use and do not reflect on the overall quality of patient care. Note that the electronic time recorded on this note does not necessarily reflect the actual time of the patient encounter. NATALIO DO MD Jun 15, 2017 13:06
== END 2017-06-14 18:31 | disposition expired | DRG 871 ==
LOC: E/R 10:55 → ICU 16:11 → TEL 06-10 16:18 → ICU 06-12 13:18
PROVIDERS: ADMIT Hospitalist; ATTEND Hospitalist
PROC: 5A09357 Assistance with Respiratory Ventilation, Less than 24 Consecutive Hours, Continuous Positive Airway Pressure (ICD-10-PCS; 2017-06-05)
PROC: 30243N1 Transfusion of Nonautologous Red Blood Cells into Central Vein, Percutaneous Approach (ICD-10-PCS; 2017-06-06)
PROC: 0DB68ZX Excision of Stomach, Via Natural or Artificial Opening Endoscopic, Diagnostic (ICD-10-PCS; principal; 2017-06-06 22:30)
PROC: 5A1D70Z Performance of Urinary Filtration, Intermittent, Less than 6 Hours Per Day (ICD-10-PCS; 2017-06-07)
PROC: 5A09457 Assistance with Respiratory Ventilation, 24-96 Consecutive Hours, Continuous Positive Airway Pressure (ICD-10-PCS; 2017-06-12)
PROC: 0BH17EZ Insertion of Endotracheal Airway into Trachea, Via Natural or Artificial Opening (ICD-10-PCS; 2017-06-14)
DX: A41.9 Sepsis, unspecified organism (principal); J96.01 Acute respiratory failure with hypoxia; J69.0 Pneumonitis due to inhalation of food and vomit; I21.A1 Myocardial infarction type 2; R65.21 Severe sepsis with septic shock; G93.49 Other encephalopathy; K29.71 Gastritis, unspecified, with bleeding; N18.6 End stage renal disease; L89.893 Pressure ulcer of other site, stage 3; I12.0 Hypertensive chronic kidney disease with stage 5 chronic kidney disease or end stage renal disease; D62 Acute posthemorrhagic anemia; I49.01 Ventricular fibrillation; F03.90 Unspecified dementia, unspecified severity, without behavioral disturbance, psychotic disturbance, mood disturbance, and anxiety; E11.22 Type 2 diabetes mellitus with diabetic chronic kidney disease; I25.2 Old myocardial infarction; I48.0 Paroxysmal atrial fibrillation; K20.9 Esophagitis, unspecified; Z66 Do not resuscitate; Z95.0 Presence of cardiac pacemaker; Z93.1 Gastrostomy status; Z86.73 Personal history of transient ischemic attack (TIA), and cerebral infarction without residual deficits
CPT/HCPCS: 31500; 36415; 36430; 36600; 71010; 80048; 80053; 80061; 80202; 81001; 82270; 82550; 82553; 82803; 83036; 83605; 83735; 83880; 84100; 84439; 84443; 84484; 85014; 85018; 85025; 85610; 85730; 86644; 86850; 86900; 86901; 86920; 87040; 87045; 87081; 87086; 88305; 88312; 90935; 93005; 94640; 94660; 94664; 96365; 96366; 96367; 96375; 97161; C9113; J0171; J0278; J0692; J1170; J1644; J2405; J2543; J3010; J3370; J7030; J7040; J7060; P9016; P9047